=== PATIENT | female | born 1935 | race African-American/Black ===

== ENCOUNTER 2025-05-13 15:06 | Emergency (ER) | payer MEDICARE, SELFPAY ==
[2025-05-13 15:07] VITALS: BP 95/45; PULSE 65; RESP 16; TEMP 36.6; O2SAT 97
--- OUTSIDE RECORDS SUMMARY | 2025-05-13 15:09 | XMS_ITS | Clinical Summary ---
Author Organization [facility] Address [address] [place] [id number] Care Team Providers Care Shirt Folder Name Role Phone Fede Mills Primary Care Provider yLnda Silvestre MD Unavailable [phone] Victor Manuel Real MD Unavailable [phone] Nazario Osman DPM Unavailable [phone] Concha Prakash RN Unavailable [phone] Allergies Active Allergy Reactions Criticality Noted Date Comments Codeine Nausea only,Vomiting Low Reaction: Nausea, Vomiting, Penicillin V Other (See comments) Low 12/17/2023 Penicillins Rash Medium Reaction: Rash, Sulfa (Sulfonamide Antibiotics) Nausea only,Vomiting Low 12/17/2023 Reaction: Nausea, Vomiting, Medications artificial tears,hypromel lose, 0.3 % drops Administer 1-2 drops into affected eye(s) daily as needed Active acetaminophen (TYLENOL) 500 mg tablet Take 1 tablet (500 mg total) by mouth every 4 (four) hours as needed for pain Active aspirin 81 mg enteric coated tablet Take 1 tablet (81 mg total) by mouth daily Active fexofenadine (RACQUEL) 180 mg tablet Take 1 tablet (180 mg total) by mouth daily Active galcanezumab-g nlm (Emgality Syringe) 120 mg/mL syringe 120 mg subcutaneous every 30 days 1 mL 11 05/23/20 24 Active carbidopa-levo dopa (SINEMET) 25-100 mg per tabletIndicati ons:Parkinsoni sm Take 1 tablet by mouth 3 (three) times a day 90 tablet 11 08/26/20 24 025 Active psyllium husk, with sugar, (Metamucil, with sugar,) 3 gram/7 gram powder as directed Mix 1 tablespoon with liquid and take by mouth Active carBAMazepine (TEGretol) 100 mg chewable tablet TAKE 1 TABLET BY MOUTH TWICE A DAY 180 tablet 1 12/23/19 25 Active simvastatin (ZOCOR) 10 mg tablet Take 1 tablet (10 mg total) by mouth daily 90 tablet 3 01/22/20 25 Active amLODIPine (NORVASC) 5 mg tablet Take 1 tablet (5 mg total) by mouth daily 30 tablet 11 04/12/20 25 026 Active levothyroxine (SYNTHROID) 25 mcg tablet TAKE 1 TABLET (25 MCG TOTAL) BY MOUTH DAILY ON EMPTY STOMACH 90 tablet 1 05/02/20 25 Active fluticasone propionate (FLONASE) 50 mcg/actuation nasal spray ADMINISTER 2 SPRAYS INTO EACH NOSTRIL DAILY NEEDED 48 mL 1 05/05/20 25 Active polyethylene glycol (MIRALAX) 17 gram/dose bulk powderIndicati ons:constipati on Take 17 g by mouth daily 510 g 05/09/20 25 025 Active senna-docusate (PERICOLACE) 8.6-50 mgIndications: constipation Take 1 tablet by mouth 2 (two) times a day as needed for constipation 60 tablet 05/09/20 25 025 Active levothyroxine (SYNTHROID) 25 mcg tablet TAKE 1 TABLET (25 MCG TOTAL) BY MOUTH DAILY ON EMPTY STOMACH 90 tablet 3 05/20/20 24 025 Discontinued fluticasone propionate (FLONASE) 50 mcg/actuation nasal spray ADMINISTER 2 SPRAYS INTO EACH NOSTRIL DAILY NEEDED 48 mL 1 11/12/19 25 025 Discontinued Active Problems Problem Noted Date Diagnosed Date Weakness 05/06/2025 Hypertensive urgency 04/10/2025 Bradycardia 04/10/2025 Parkinson's disease with dyskinesia, with fluctu ations 01/21/2025 Pulmonary hypertension 10/07/2024 Chronic diastolic heart failure 10/07/2024 Intractable headache, unspec ified chronicity pattern, unspecified headache type 08/22/2024 Weakness of right lower extremity 04/12/2024 Chronic migraine w/o aura w/ o status migrainosus, not intractable 12/17/2023 Other cervical disc degenera tion, unspecified cervical region 12/17/2023 Type 2 diabetes mellitus wit h diabetic chronic kidney disease 12/17/2023 Type 2 diabetes mellitus with diabetic polyneuro brian 12/17/2023 Orthostatic hypotension 11/25/2023 Age-related physical debility 11/22/2023 Assessment & Plan (12/27/2023 1:32 PM TRANSPORTATION SALES CONSULTANT): -new diagnosis -reported in bilateral lower extremities -cause of recent hospitalization -patient currently doing PT/OT -uses a walker for short distances but a wheelchair for long distances -continue current therapy Neck pain 08/01/2023 Assessment & Plan (08/01/2023 2:23 PM CDT): Physical therapy for right sided neck pain Chronic left-sided headaches 02/27/2023 Assessment & Plan (02/27/2023 7:53 AM CDT): Worsening- Ordered MRI WO Encouraged to follow up with Opth to have updated eye exam Plan referral for neurology pending results Continue with Tylenol for pain- use as directed Valgus deformity of both feet 02/27/2023 Assessment & Plan (02/27/2023 7:53 AM CDT): Ordered referral for Podiatry Anemia of chronic disease 11/13/2022 Acquired hypothyroidism 07/04/2022 Assessment & Plan (12/27/2023 1:35 PM TRANSPORTATION SALES CONSULTANT): -chronic -previously taking 25 mcg of levothyroxine -discontinued during hospitalization from 11/22/2023-11/25/2023 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 If pt helps contorlls Will not chaes if not confsider stress test. Xray t and l.s spine High serum vitamin B12 06/16/2021 Assessment & Plan (06/16/2021 10:44 AM CDT): Prior low and taking and now high stop b12 and rec heck Expect to need but much smaller doses History of falling 12/12/2020 Iron deficiency anemia secon sally to inadequate dietary iron intake 06/03/2020 Assessment & Plan (11/02/2021 10:34 AM TRANSPORTATION SALES CONSULTANT): Recheck to confirm not worseining prior xstool hem neg Assessment & Plan (06/16/2021 10:38 AM CDT): Iron up to iron sat up to 16 and hgb to 11.5 and geteting to nl and cont iron and check Assessment & Plan (01/10/2021 11:25 AM TRANSPORTATION SALES CONSULTANT): blod cnts p a little and I cj stable stay on iron as on for nwo and seclf chweck Assessment & Plan (09/07/2020 1:28 PM TRANSPORTATION SALES CONSULTANT): Iron stil low and takes mvi with iron as only toerated Check cbc and Iron onreturn Assessment & Plan (06/03/2020 3:43 PM CDT): Stable anemia with hgb 10.3 and 165 % urib taje mvi with iron and check ctool for blood. Medicare annual wellness visit, subsequent 05/13 Assessment & Plan (01/21/2025 11:56 AM CDT): Discussed community resources and any need for referrals; will refer to services and programs to improve social engagement if indicated, as above. Reviewed social activities and engagement. Health risk assessment reviewed. Providers and care team suppliers up-to-date. Age-appropriate Medicare preventive services check list reviewed. Discussed physical activity. We reviewed home and community safety including driving. Refer to Medicare questions about suicidality and life satisfaction. Assessment & Plan (01/18/2024 12:16 PM CDT): Discussed community resources and any need for referrals. Health risk assessment reviewed. Providers and care team suppliers up-to-date. Age-appropriate Medicare preventive services check list reviewed. Discussed physical activity. Assessment & Plan (07/04/2022 8:35 AM CDT): Discussed community resources and any need for referrals. Health risk assessment reviewed. Providers and care team suppliers up-to-date. Age-appropriate Medicare preventive services check list reviewed. Discussed physical activities. Assessment & Plan (06/16/2021 10:40 AM CDT): Low fall risk deprioens screen neg cog screen nl up to date on coln and rene given age had rene last yr and suggest .getting every 1-2 yrs. Had covid flu shingles shot seirries and p shots Assessment & Plan (06/03/2020 3:42 PM CDT): Neg depreison screen Cog screen nl low fal risk 84 not candidate for colon . Rene up to odate vbut coiming up.fall fluy ahd had both p shots. chingles shot series had. Assessment & Plan (05/13/2019 11:02 AM CDT): Low fall risk depresoin screen nl. Colon for 83 would not do unless issue. Fall flu shots up to date and has had both p shots. Rene due end of jun. Stage 3 chronic kidney disease 01/06/2019 Assessment & Plan (04/21/2025 12:32 PM CDT): She knows to avoid nephrotoxic drugs Assessment & Plan (01/21/2025 11:56 AM CDT): Discussed avoiding nephrotoxic drugs Assessment & Plan (01/01/2025 10:10 AM TRANSPORTATION SALES CONSULTANT): Chemistry Lab Results Component Value Date SODIUM 143 10/08/2024 POTASSIUM 4.2 10/08/2024 CHLORIDE 110 10/08/2024 CO2 25 10/08/2024 ANIONGAP 8 10/08/2024 BUNSER 24 10/08/2024 CREATININE 0.86 10/08/2024 GLUCOSE 95 10/08/2024 CALCIUM 9.2 10/08/2024 BILITOT <0.2 10/08/2024 PROTEIN 6.4 09/02/2019 ALBUMIN 3.2 (L) 10/08/2024 GFRNAA 65 10/08/2024 ALKPHOS 81 10/08/2024 AST 23 10/08/2024 ALT <5 (L) 10/08/2024 PHOS 3.2 04/15/2024 MAGNESIUM 2.2 07/19/2024 Independent review of above laboratory data at this time indicating stable kidney function. Recommend increasing hydration and avoiding nephrotoxic meds and continue renal dosing of medications if needed. Assessment & Plan (11/02/2021 10:31 AM TRANSPORTATION SALES CONSULTANT): Creat sctable and due for 24 hr uirhe cr clTo try to minimize the worsening and possible improvement in the renal function there are several things to try to do. The patient should work to get off of (if on) drugs Like Prilosec/prevacid/protonix/nexium,etc. This does not include zantac/pepcid or Tagement. It ws shown that there is an increased risk of kidney dysfunction if you use Prilosec like meds.The patient should also stay off of regular use of scripted arthritis pills like Celebrex.mobic,naprosyn,etc. The over the counter pills of this nature are Advil/motrin/ibuprofen and aleve/naproxen. Regular use of these over the counter pills, Particularly at high doses and not scattered use of the meds also can harm the kidneys. Assessment & Plan (05/13/2019 10:59 AM CDT): Screening labs stble and check 24 hr uirne yr'l'yTo try to minimize the worsening and possible improvement in the renal function there are several things to try to do. The patient should work to get off of (if on) drugs Like Prilosec/prevacid/protonix/nexium,etc. This does not include zantac/pepcid or Tagement. It ws shown that there is an increased risk of kidney dysfunction if you use Prilosec like meds.The patient should also stay off of regular use of scripted arthritis pills like Celebrex.mobic,naprosyn,etc. The over the counter pills of this nature are Advil/motrin/ibuprofen and aleve/naproxen. Regular use of these over the counter pills, Particularly at high doses and not scattered use of the meds also can harm the kidneys. Assessment & Plan (01/06/2019 5:28 PM TRANSPORTATION SALES CONSULTANT): Worsening some. CC down to 46 from 51. Pure hypercholesterolemia 08/19/2018 Assessment & Plan (01/21/2025 11:56 AM CDT): Counseled on heart healthy diet, exercise where able Assessment & Plan (06/11/2024 12:39 PM CDT): Counseled on heart healthy diet, exercise where able Assessment & Plan (06/16/2021 10:43 AM CDT): ldl t 60 great and a1c at 6.0 fantastic and nn no meds for sugar and Statin working well cont meds as on . And no adderd diet Assessment & Plan (01/10/2021 11:27 AM TRANSPORTATION SALES CONSULTANT): Your cholesterol in the form of ldl (bad) cholesterol,hdl(good) cholesterol and triglycerides are monitored. The triglycerides respond to reduction/controll of your simple carbs/sugars In such items as sugared soda/sweet tea along with fruit juices(containing natural sugar) even if no added sugar is added. LDL cholesterol is reduced with reducing daily intake of fats and beverly. saturated fats. The monosaturated fats like olive oil are not harmful except in the calories they contained. Whole milk cheese needs to be remembered along with whole milk products And limited.ldl at 56 and god no changs inmeds and check onrturn Assessment & Plan (06/03/2020 3:38 PM CDT): ldl at 49 not rl meds but if rops more would look at dropiong the zocor no added diet Assessment & Plan (09/15/2019 11:25 AM TRANSPORTATION SALES CONSULTANT): ldl at 58 and great no chanes in diet or meds Assessment & Plan (05/13/2019 10:59 AM CDT): ldl at 58 and great no changes in meds or diet Assessment & Plan (08/19/2018 9:14 AM CDT): ldl at 67 and gterat. a1c nl at 5.6. Camila at dropingthe metformin to bid on return if stays this relative good. Your cholesterol in the form of ldl (bad) cholesterol,hdl(good) cholesterol and triglycerides are monitored. The triglycerides respond to reduction/controll of your simple carbs/sugars In such items as sugared soda/sweet tea along with fruit juices(containing natural sugar) even if no added sugar is added. LDL cholesterol is reduced with reducing daily intake of fats and beverly. saturated fats. The monosaturated fats like olive oil are not harmful except in the calories they contained. Whole milk cheese needs to be remembered along with whole milk products And limited.Diabetes management or controll revolves around several core concepts : weight controll,controlling the intake of rapidly absorbed sugars(read simple carbs that get rapidly absorbed such as sweetened tea,sugared soda,fruit juices or portions of fruit over 1/2 cup at a time) as well at the need to increase the sugar burned up through an n increase in your baseline activity.Breads,potatotes(white,yellow,sweet are all the same),most cereals and noodles all breakdown to sugar rapidly. This rapid breakdown or absorption challenges the body into handling this surge of sugar. The more these factors are controlled the more the sugar will be controlled. Type 2 diabetes mellitus wit h stage 3 chronic kidney disease, without long-term current use of insulin 08/19/2018 Assessment & Plan (11/12/2022 3:05 PM TRANSPORTATION SALES CONSULTANT): The patient was counseled on a heart-healthy, diabetic-friendly diet, as well as life-style modification. Education provided on the diagnosis and risks of the disease. We will continue to monitor routine labs. Additionally, She was counseled on routine diabetic eye exams, foot exams, and other preventive care. Assessment & Plan (03/06/2022 8:54 AM CDT): The patient was counseled on a heart-healthy, diabetic-friendly diet, as well as life-style modification. Education provided on the diagnosis and risks of the disease. We will continue to monitor routine labs. Additionally, the patient was counseled on routine diabetic eye exams, foot exams, and other preventive care. Assessment & Plan (11/02/2021 10:31 AM TRANSPORTATION SALES CONSULTANT): a1c at 5.8 and near nl Diabetes management or controll revolves around several core concepts : weight controll,controlling the intake of rapidly absorbed sugars(read simple carbs that get rapidly absorbed such as sweetened tea,sugared soda,fruit juices or portions of fruit over 1/2 cup at a time) as well at the need to increase the sugar burned up through an n increase in your baseline activity.Breads,potatotes(white,yellow,sweet are all the same),most cereals and noodles all breakdown to sugar rapidly. This rapid breakdown or absorption challenges the body into handling this surge of sugar. The more these factors are controlled the more the sugar will be controlled. Assessment & Plan (06/16/2021 10:43 AM CDT): Renal stable and sugar great and no added meds or diet . Recheck 4 months Assessment & Plan (01/10/2021 11:22 AM TRANSPORTATION SALES CONSULTANT): Cr clear up to 50 from 35. No meds and doing bettrer off menformin but not see that as issue. Watch for drugs at Trick and recheck onreturnTo try to minimize the worsening and possible improvement in the renal function there are several things to try to do. The patient should work to get off of (if on) drugs Like Prilosec/prevacid/protonix/nexium,etc. This does not include zantac/pepcid or Tagement. It ws shown that there is an increased risk of kidney dysfunction if you use Prilosec like meds.The patient should also stay off of regular use of scripted arthritis pills like Celebrex.mobic,naprosyn,etc. The over the counter pills of this nature are Advil/motrin/ibuprofen and aleve/naproxen. Regular use of these over the counter pills, Particularly at high doses and not scattered use of the meds also can harm the kidneys. Assessment & Plan (09/07/2020 1:27 PM TRANSPORTATION SALES CONSULTANT): A`1c nl at 5.6 and will stopthe metformin and gfr 35 fown Touch and will see about stopoinght e lisinpril low dase for renal function. Check renal sono as well recheck urine then in 4,monthsTo try to minimize the worsening and possible improvement in the renal function there are several things to try to do. The patient should work to get off of (if on) drugs Like Prilosec/prevacid/protonix/nexium,etc. This does not include zantac/pepcid or Tagement. It ws shown that there is an increased risk of kidney dysfunction if you use Prilosec like meds.The patient should also stay off of regular use of scripted arthritis pills like Celebrex.mobic,naprosyn,etc. The over the counter pills of this nature are Advil/motrin/ibuprofen and aleve/naproxen. Regular use of these over the counter pills, Particularly at high doses and not scattered use of the meds also can harm the kidneys. Diabetes management or controll revolves around several core concepts : weight controll,controlling the intake of rapidly absorbed sugars(read simple carbs that get rapidly absorbed such as sweetened tea,sugared soda,fruit juices or portions of fruit over 1/2 cup at a time) as well at the need to increase the sugar burned up through an n increase in your baseline activity.Breads,potatotes(white,yellow,sweet are all the same),most cereals and noodles all breakdown to sugar rapidly. This rapid breakdown or absorption challenges the body into handling this surge of sugar. The more these factors are controlled the more the sugar will be controlled. Assessment & Plan (06/03/2020 3:36 PM CDT): a1c down to 5l4 and cut the metformin to 1 a day. Creat stable and nl but gfr low check renal24 hr urinre on reuthnr and see where at. To try to minimize the worsening and possible improvement in the renal function there are several things to try to do. The patient should work to get off of (if on) drugs Like Prilosec/prevacid/protonix/nexium,etc. This does not include zantac/pepcid or Tagement. It ws shown that there is an increased risk of kidney dysfunction if you use Prilosec like meds.The patient should also stay off of regular use of scripted arthritis pills like Celebrex.mobic,naprosyn,etc. The over the counter pills of this nature are Advil/motrin/ibuprofen and aleve/naproxen. Regular use of these over the counter pills, Particularly at high doses and not scattered use of the meds also can harm the kidneys. Diabetes management or controll revolves around several core concepts : weight controll,controlling the intake of rapidly absorbed sugars(read simple carbs that get rapidly absorbed such as sweetened tea,sugared soda,fruit juices or portions of fruit over 1/2 cup at a time) as well at the need to increase the sugar burned up through an n increase in your baseline activity.Breads,potatotes(white,yellow,sweet are all the same),most cereals and noodles all breakdown to sugar rapidly. This rapid breakdown or absorption challenges the body into handling this surge of sugar. The more these factors are controlled the more the sugar will be controlled. Assessment & Plan (01/13/2020 1:17 PM CDT): The patient was counseled on a heart-healthy, diabetic-friendly diet, as well as life-style modification. Education provided on the diagnosis and risks of the disease. We will continue to monitor routine labs. Additionally, She was counseled on routine diabetic eye exams, foot exams, and other preventive care. Assessment & Plan (09/15/2019 11:24 AM TRANSPORTATION SALES CONSULTANT): screeens for renal funcniton stabl eto better and check 24 hr uiren yr'ly limited sulfa nsaaids. Iv dye and ppi's espTo try to minimize the worsening and possible improvement in the renal function there are several things to try to do. The patient should work to get off of (if on) drugs Like Prilosec/prevacid/protonix/nexium,etc. This does not include zantac/pepcid or Tagement. It ws shown that there is an increased risk of kidney dysfunction if you use Prilosec like meds.The patient should also stay off of regular use of scripted arthritis pills like Celebrex.mobic,naprosyn,etc. The over the counter pills of this nature are Advil/motrin/ibuprofen and aleve/naproxen. Regular use of these over the counter pills, Particularly at high doses and not scattered use of the meds also can harm the kidneys. Assessment & Plan (05/13/2019 11:01 AM CDT): Stable renal ascreen and check 24 hr urine. Next due about dec Assessment & Plan (01/06/2019 5:26 PM TRANSPORTATION SALES CONSULTANT): The patient was counseled on a heart-healthy, diabetic-friendly diet, as well as life-style modification. Education provided on the diagnosis and risks of the disease. We will continue to monitor routine labs. Additionally, She was counseled on routine diabetic eye exams, foot exams, and other preventive care. Assessment & Plan (08/19/2018 9:20 AM CDT): priro at 53 gfr. Not checked in a yr. alexis ask to repeat on retuirn.dx drooped off list. To try to minimize the worsening and possible improvement in the renal function there are several things to try to do. The patient should work to get off of (if on) drugs Like Prilosec/prevacid/protonix/nexium,etc. This does not include zantac/pepcid or Tagement. It ws shown that there is an increased risk of kidney dysfunction if you use Prilosec like meds.The patient should also stay off of regular use of scripted arthritis pills like Celebrex.mobic,naprosyn,etc. The over the counter pills of this nature are Advil/motrin/ibuprofen and aleve/naproxen. Regular use of these over the counter pills, Particularly at high doses and not scattered use of the meds also can harm the kidneys. Hypertension, essential 09/22/2016 Overview (02/09/2017): HYPERTENSION NOS Assessment & Plan (04/21/2025 12:32 PM CDT): Recommend DASH diet, heart-healthy lifestyle, exercise. Discussed the risks of hypertension. Assessment & Plan (01/21/2025 11:56 AM CDT): Recommend DASH diet, heart-healthy lifestyle, exercise. Discussed the risks of hypertension. Assessment & Plan (01/01/2025 10:50 AM TRANSPORTATION SALES CONSULTANT): BP Readings from Last 3 Encounters: 01/01/25 104/64 10/17/24 130/58 10/09/24 129/55 Chronic condition. Stable and at goal at time of office visit of systolic pressure less than 140 Continue amlodipine 2.5 mg daily, Coreg 6.25 mg twice a day as Rx. Recommend heart-healthy diet. Assessment & Plan (06/11/2024 12:38 PM CDT): Recommend DASH diet, heart-healthy lifestyle, exercise. Discussed the risks of hypertension. Assessment & Plan (01/18/2024 12:16 PM CDT): Recommend DASH diet, heart healthy lifestyle, exercise. Discussed the risks of hypertension. Assessment & Plan (12/27/2023 1:31 PM TRANSPORTATION SALES CONSULTANT): -chronic, suboptimally controlled -currently takes Coreg daily -from recent hospitalization amlodipine and spironolactone discontinued. Midodrine added -per patient's blood pressures have been running 140s to 150s over 70s to 80s, which he states is normal for her -continue current therapy Assessment & Plan (03/09/2023 8:13 AM CDT): Recommend DASH diet, heart healthy lifestyle, exercise. Discussed the risks of hypertension. Assessment & Plan (02/27/2023 7:59 AM CDT): Recommend DASH diet, heart-healthy lifestyle, exercise. Discussed the risks of hypertension. BP stable Continue Carvedilol 6.25 mg bid with food, amlodipine 2.5 mg daily, spironolactone 25 mg daily Assessment & Plan (07/04/2022 8:35 AM CDT): Recommend DASH diet, heart healthy lifestyle, exercise. Discussed the risks of hypertension. Assessment & Plan (06/16/2021 10:38 AM CDT): The bp touch high and will recheck at [facility] and [facility] in. And bring in monitor . a1c at 6.0 and goo d and no changx Hypertension, Medical treament revolves around weight control, salt management, and meds when necessary. long as weight loss is necessary and you are able to drop weight we can cont to monitor the blood pressure and not add meds. Once the weight is not changing then it becomes nesessary to add meds to be able to reach the goal bp.Diabetes management or controll revolves around several core concepts : weight controll,controlling the intake of rapidly absorbed sugars(read simple carbs that get rapidly absorbed such as sweetened tea,sugared soda,fruit juices or portions of fruit over 1/2 cup at a time) as well at the need to increase the sugar burned up through an n increase in your baseline activity.Breads,potatotes(white,yellow,sweet are all the same),most cereals and noodles all breakdown to sugar rapidly. This rapid breakdown or absorption challenges the body into handling this surge of sugar. The more these factors are controlled the more the sugar will be controlled. Assessment & Plan (01/10/2021 11:21 AM TRANSPORTATION SALES CONSULTANT): bp good and a1c up to 6.1 and off meds given wt up this is great. Needs to controll wt Hypertension, Medical treament revolves around weight control, salt management, and meds when necessary. long as weight loss is necessary and you are able to drop weight we can cont to monitor the blood pressure and not add meds. Once the weight is not changing then it becomes nesessary to add meds to be able to reach the goal bp.Diabetes management or controll revolves around several core concepts : weight controll,controlling the intake of rapidly absorbed sugars(read simple carbs that get rapidly absorbed such as sweetened tea,sugared soda,fruit juices or portions of fruit over 1/2 cup at a time) as well at the need to increase the sugar burned up through an n increase in your baseline activity.Breads,potatotes(white,yellow,sweet are all the same),most cereals and noodles all breakdown to sugar rapidly. This rapid breakdown or absorption challenges the body into handling this surge of sugar. The more these factors are controlled the more the sugar will be controlled. Assessment & Plan (06/03/2020 3:39 PM CDT): bp drop meds to 2.5 from 5 on lisinopril No added diet Assessment & Plan (01/13/2020 1:15 PM CDT): Recommend DASH diet, heart-healthy lifestyle, exercise. Discussed the risks of hypertension. Assessment & Plan (09/15/2019 11:23 AM TRANSPORTATION SALES CONSULTANT): The bp good and th3 a1c neqr nl at 5.7 no chages in dieet or meds Assessment & Plan (05/13/2019 11:05 AM CDT): The bp good and lisinopril and what dose not clear will go h ome and check and let us know and plan would be to kep same. . The a1c nl at 5.6 no ochoanges with these cutting ht aldactone back pierre /12 and alexis see Some bp come upHypertension, Medical treament revolves around weight control, salt management, and meds when necessary. long as weight loss is necessary and you are able to drop weight we can cont to monitor the blood pressure and not add meds. Once the weight is not changing then it becomes nesessary to add meds to be able to reach the goal bp. Assessment & Plan (01/06/2019 5:27 PM TRANSPORTATION SALES CONSULTANT): Recommend DASH diet, heart-healthy lifestyle, exercise. Discussed the risks of hypertension. Assessment & Plan (08/19/2018 9:18 AM CDT): bp low nl and will dropthe lisinopril to 2.5. Hypertension, Medical treament revolves around weight control, salt management, and meds when necessary. long as weight loss is necessary and you are able to drop weight we can cont to monitor the blood pressure and not add meds. Once the weight is not changing then it becomes nesessary to add meds to be able to reach the goal bp. Assessment & Plan (02/15/2018 4:39 PM CDT): Recommend DASH diet, heart-healthy lifestyle, exercise. Discussed the risks of hypertension. Assessment & Plan (10/18/2017 10:30 AM TRANSPORTATION SALES CONSULTANT): bp good and no chagesHypertension, Medical treament revolves around weight control, salt management, and meds when necessary. long as weight loss is necessary and you are able to drop weight we can cont to monitor the blood pressure and not add meds. Once the weight is not changing then it becomes nesessary to add meds to be able to reach the goal bp. Assessment & Plan (06/14/2017 10:34 AM CDT): bp low enougha nd with protein in urine. thelsinopril and ladactone helps this.will back off onteh coreg and see if bp not up someHypertension, Medical treament revolves around weight control, salt management, and meds when necessary. long as weight loss is necessary and you are able to drop weight we can cont to monitor the blood pressure and not add meds. Once the weight is not changing then it becomes nesessary to add meds to be able to reach the goal bp. Type 2 diabetes mellitus wit h microalbuminuria, without long-term current use of insulin 03/21/2014 Overview (02/09/2017): DMII WO CMP NT ST UNCNTR Assessment & Plan (04/21/2025 12:32 PM CDT): The patient was counseled on a heart-healthy, diabetic-friendly diet, as well as life-style modification. Education provided on the diagnosis and risks of the disease. We will continue to monitor routine labs. Additionally, She was counseled on routine diabetic eye exams, foot exams, and other preventive care. Assessment & Plan (01/21/2025 11:56 AM CDT): The patient was counseled on a heart-healthy, diabetic-friendly diet, as well as life-style modification. Education provided on the diagnosis and risks of the disease. We will continue to monitor routine labs. Additionally, She was counseled on routine diabetic eye exams, foot exams, and other preventive care. Assessment & Plan (01/01/2025 10:03 AM TRANSPORTATION SALES CONSULTANT): Chronic, stable, and at goal of A1c less than 7.0 Hgb A1C Date Value Ref Range Status 06/11/2024 6.2 (H) 4.0 - 5.6 % Final 08/07/2023 6.0 (H) 4.0 - 5.6 % Final 03/06/2023 6.3 (H) 4.0 - 5.6 % Final 09/02/2019 5.7 (H) <5.7 % of total Hgb Final Comment: For someone without known diabetes, a hemoglobin A1c value between 5.7% and 6.4% is consistent with prediabetes and should be confirmed with a follow-up test. For someone with known diabetes, a value <7% indicates that their diabetes is well controlled. A1c targets should be individualized based on duration of diabetes, age, comorbid conditions, and other considerations. This assay result is consistent with an increased risk of diabetes. Currently, no consensus exists regarding use of hemoglobin A1c for diagnosis of diabetes for children. 04/28/2019 5.6 <5.7 % of total Hgb Final Comment: For the purpose of screening for the presence of diabetes: <5.7% Consistent with the absence of diabetes 5.7-6.4% Consistent with increased risk for diabetes (prediabetes) > or =6.5% Consistent with diabetes This assay result is consistent with a decreased risk of diabetes. Currently, no consensus exists regarding use of hemoglobin A1c for diagnosis of diabetes in children. According to [place] Diabetes Association (ADA) guidelines, hemoglobin A1c <7.0% represents optimal control in non- diabetic patients. Different metrics may apply to specific patient populations. Standards of Medical Care in Diabetes(ADA). 12/24/2018 5.6 <5.7 % of total Hgb Final Comment: For the purpose of screening for the presence of diabetes: <5.7% Consistent with the absence of diabetes 5.7-6.4% Consistent with increased risk for diabetes (prediabetes) > or =6.5% Consistent with diabetes This assay result is consistent with a decreased risk of diabetes. Currently, no consensus exists regarding use of hemoglobin A1c for diagnosis of diabetes in children. According to [place] [employer] (ADA) guidelines, hemoglobin A1c <7.0% represents optimal control in non- diabetic patients. Different metrics may apply to specific patient populations. Standards of Medical Care in Diabetes(ADA). Labs reviewed indicating glycemic control Recommend continue nutrition/diet for management, no prescription medications active this time. Assessment & Plan (06/11/2024 12:38 PM CDT): The patient was counseled on a heart-healthy, diabetic-friendly diet, as well as life-style modification. Education provided on the diagnosis and risks of the disease. We will continue to monitor routine labs. Additionally, She was counseled on routine diabetic eye exams, foot exams, and other preventive care. Assessment & Plan (01/18/2024 12:16 PM CDT): The patient was counseled on a heart-healthy, diabetic-friendly diet, as well as life-style modification. Education provided on the diagnosis and risks of the disease. We will continue to monitor routine labs. Additionally, She was counseled on routine diabetic eye exams, foot exams, and other preventive care. Assessment & Plan (06/16/2021 10:42 AM CDT): Urine protein and n meds and cont on and check pyr'ly Assessment & Plan (01/10/2021 11:24 AM TRANSPORTATION SALES CONSULTANT): Urine protetin cme up to 192 and up. On meds to help and cotn as on for now and check Assessment & Plan (06/03/2020 3:42 PM CDT): Dropping back on honey to 2.5 Given renal and bp and k some high will check in futureif ka goes up any alexis need to reduce to stop the alldactone Assessment & Plan (09/15/2019 11:24 AM TRANSPORTATION SALES CONSULTANT): lurine protein down to 4.7 and Very nl on meds as on.l no changes Assessment & Plan (05/13/2019 11:00 AM CDT): Urine protien up touch to 44 and 30 and less nl. With back off aldactone alexis liekly come up some and check it onreturn Assessment & Plan (08/19/2018 9:15 AM CDT): checkurine on return. Assessment & Plan (02/18/2018 9:22 AM CDT): The patient was counseled on a heart-healthy, diabetic-friendly diet, as well as life-style modification. Education provided on the diagnosis and risks of the disease. We will continue to monitor routine labs. Additionally, She was counseled on routine diabetic eye exams, foot exams, and other preventive care. Assessment & Plan (10/18/2017 10:31 AM TRANSPORTATION SALES CONSULTANT): a1c at 6.2 and 6.5 diabetes. So excellent. Will check urine on return for the protein. Potassium at 5.2 limits any increase inhte aldactone or lisinopril if still up some. Diabetes management or controll revolves around several core concepts : weight controll,controlling the intake of rapidly absorbed sugars(read simple carbs that get rapidly absorbed such as sweetened tea,sugared soda,fruit juices or portions of fruit over 1/2 cup at a time) as well at the need to increase the sugar burned up through an n increase in your baseline activity.Breads,potatotes(white,yellow,sweet are all the same),most cereals and noodles all breakdown to sugar rapidly. This rapid breakdown or absorption challenges the body into handling this surge of sugar. The more these factors are controlled the more the sugar will be controlled. Assessment & Plan (06/14/2017 10:34 AM CDT): a1c at 5.5 and nl. The urine p rotein 35 and nl 30 and less. The aldactone and lisinopril helps this. And will try to cont themDiabetes management or controll revolves around several core concepts : weight controll,controlling the intake of rapidly absorbed sugars(read simple carbs that get rapidly absorbed such as sweetened tea,sugared soda,fruit juices or portions of fruit over 1/2 cup at a time) as well at the need to increase the sugar burned up through an n increase in your baseline activity.Breads,potatotes(white,yellow,sweet are all the same),most cereals and noodles all breakdown to sugar rapidly. This rapid breakdown or absorption challenges the body into handling this surge of sugar. The more these factors are controlled the more the sugar will be controlled.. Resolved Problems Problem Noted Date Diagnosed Date Resolved Date Acute chest pain 04/10/2025 04/21/2025 Near syncope 10/07/2024 04/21/2025 Acute cystitis without hematuria 10/07/2024 01/21/2025 Assessment & Plan (01/01/2025 10:01 AM TRANSPORTATION SALES CONSULTANT): Chronic problem, exacerbated at this time. Point of care urinalysis today: Repeat urine culture Initiate antibiotics at this time based on most recent culture data: Rx ciprofloxacin 500 mg twice a day for 5 days Body mass index (BMI) of 23. 0 to 23.9 in adult 12/27/2023 06/11/2024 Assessment & Plan (12/27/2023 1:39 PM TRANSPORTATION SALES CONSULTANT): Wt Readings from Last 3 Encounters: 11/22/23 58.8 kg (129 lb 10.1 oz) 10/08/23 57.6 kg (127 lb) 08/09/23 58.1 kg (128 lb) There is no height or weight on file to calculate BMI. -Discussed importance of continuing PT -Discussed importance of well-balanced diet. Hypertensive chronic kidney disease w stg 1-4/unsp chr kdny 12/17/2023 01/18/2024 Unspecified dementia, unspec ified severity, without behavioral disturbance, psychotic disturbance, mood disturbance, and anxiety 12/17/2023 06/11/2024 Fall 11/23/2023 01/18/2024 Fall at home 11/22/2023 01/18/2024 Chronic migraine without aura 10/08/2023 05/23/2024 Referred otalgia of left ear 08/01/2023 08/09/2023 Assessment & Plan (08/01/2023 2:16 PM CDT): CT Head Personal interpretation: sinuses, middle ear and mastoids were clear, no fluid, masses, polyps or infection Ingrowing toenail of left foot 02/27/2023 01/18/2024 Assessment & Plan (02/27/2023 7:56 AM CDT): Warm foot soaks Avoid cutting nails too short- cut straight across and not at angle Follow up with podiatry Encounter for follow-up exam ination after completed treatment for conditions other than malignant neoplasm 02/27/2023 08/09/2023 Assessment & Plan (02/27/2023 7:57 AM CDT): I personally reviewed ER visit documentation, labs,imaging, and medications Medication reconciliation completed Follow up with pcp as scheduled-sooner if needed Chronic kidney disease, stage 3a 06/07/2022 01/18/2024 Pure hypercholesterolemia, unspecified 03/07/2022 06/11/2024 Hypothyroidism, unspecified 02/10/2022 01/18/2024 Constipation, unspecified 01/10/2022 Allergic rhinitis, unspecified 12/12/2021 01/18/2024 Primary hypertension 11/02/2021 022 Assessment & Plan (03/06/2022 8:57 AM CDT): Recommend DASH diet, heart-healthy lifestyle, exercise. Discussed the risks of hypertension. Assessment & Plan (11/02/2021 10:32 AM TRANSPORTATION SALES CONSULTANT): Bp; stable anld keep meds sameHypertension, Medical treament revolves around weight control, salt management, and meds when necessary. long as weight loss is necessary and you are able to drop weight we can cont to monitor the blood pressure and not add meds. Once the weight is not changing then it becomes nesessary to add meds to be able to reach the goal bp. BMI 27.0-27.9,adult 01/10/2021 08/09/20 23 Assessment & Plan (02/27/2023 8:05 AM CDT): Weight stable Continue healthy diabetic diet Assessment & Plan (01/10/2021 11:26 AM TRANSPORTATION SALES CONSULTANT): Work to stoppoing wt gain Benign hypertensive kidney d isease with chronic kidney disease stage I through stage IV, or unspecified(403.10) 06/03/2020 03/06/2022 Assessment & Plan (11/02/2021 10:33 AM TRANSPORTATION SALES CONSULTANT): Renal screen stable nad bp good and Cont meds as on Assessment & Plan (06/16/2021 10:33 AM CDT): The bp a little higher to day and Good at home and will check and record 1-2 tiems a month and bring bp and monitor in on return creat xtable and repeat 24 hr urien into next yr To try to minimize the worsening and possible improvement in the renal function there are several things to try to do. The patient should work to get off of (if on) drugs Like Prilosec/prevacid/protonix/nexium,etc. This does not include zantac/pepcid or Tagement. It ws shown that there is an increased risk of kidney dysfunction if you use Prilosec like meds.The patient should also stay off of regular use of scripted arthritis pills like Celebrex.mobic,naprosyn,etc. The over the counter pills of this nature are Advil/motrin/ibuprofen and aleve/naproxen. Regular use of these over the counter pills, Particularly at high doses and not scattered use of the meds also can harm the kidneys. Hypertension, Medical treament revolves around weight control, salt management, and meds when necessary. long as weight loss is necessary and you are able to drop weight we can cont to monitor the blood pressure and not add meds. Once the weight is not changing then it becomes nesessary to add meds to be able to reach the goal bp. Assessment & Plan (01/10/2021 11:23 AM TRANSPORTATION SALES CONSULTANT): bp good and renal better no chages in meds Assessment & Plan (09/07/2020 1:27 PM TRANSPORTATION SALES CONSULTANT): bp good and will gfr lower try and see if stopoingthe 2.45 l isinipril helps. Hypertension, Medical treament revolves around weight control, salt management, and meds when necessary. long as weight loss is necessary and you are able to drop weight we can cont to monitor the blood pressure and not add meds. Once the weight is not changing then it becomes nesessary to add meds to be able to reach the goal bp. Assessment & Plan (06/03/2020 3:38 PM CDT): bp good and drop back on honey to 2.5 and check renal with 24 hr urine on return Colon cancer screening 09/15/201907/04 Assessment & Plan (09/15/2019 11:28 AM TRANSPORTATION SALES CONSULTANT): Given age and last nl without need to repeat At age 83 will not repeat Pre-op examination 06/25/2019 0 Assessment & Plan (06/25/2019 1:49 PM CDT): Cat long standing but readhed point of struggles to se setup for surg on 07/03, cleared for low risk surg with well sontrolled bp and niddm . Stable crf. Stops no meds in prep for surg. If gets ill in Between now and surg alexis need to cancel out. BMI 24.0-24.9, adult 05/13/2019 021 Assessment & Plan (09/07/2020 1:28 PM TRANSPORTATION SALES CONSULTANT): Work to keepst able Assessment & Plan (06/03/2020 3:39 PM CDT): Work to come in for landing and not lose Hyperkalemia 05/13/2019 09/15/2019 Assessment & Plan (05/13/2019 11:00 AM CDT): Potassium 5.6 and alexis cut the aldactone to 1/2 pill send in and this shold allow k to drop some At low risk for fall 05/13/2019 023 Assessment & Plan (06/03/2020 3:41 PM CDT): Low fall risk Assessment & Plan (05/13/2019 11:01 AM CDT): Cont total gym to help Laceration of right ring fin jeremías without foreign body without damage to nail 11/29/201708/05 Assessment & Plan (12/04/2017 4:55 PM TRANSPORTATION SALES CONSULTANT): If bleeds then apply direct p[ressure and will stop. bandaid after dial soap nguyen twice a day. Antibiotic oinment on and bakndaid to prtect tentus 7 yrs ago and up to date. No repeat needed for this low risk wound. Hyperlipidemia 09/22/2016 08/19/2018 Overview (02/09/2017): HYPERLIPIDEMIA NEC/NOS Assessment & Plan (10/18/2017 10:31 AM TRANSPORTATION SALES CONSULTANT): ldl at 59 and great and no changesYour cholesterol in the form of ldl (bad) cholesterol,hdl(good) cholesterol and triglycerides are monitored. The triglycerides respond to reduction/controll of your simple carbs/sugars In such items as sugared soda/sweet tea along with fruit juices(containing natural sugar) even if no added sugar is added. LDL cholesterol is reduced with reducing daily intake of fats and beverly. saturated fats. The monosaturated fats like olive oil are not harmful except in the calories they contained. Whole milk cheese needs to be remembered along with whole milk products And limited. Assessment & Plan (06/14/2017 10:35 AM CDT): .ldl at 47 and great and fo now no changesYour cholesterol in the form of ldl (bad) cholesterol,hdl(good) cholesterol and triglycerides are monitored. The triglycerides respond to reduction/controll of your simple carbs/sugars In such items as sugared soda/sweet tea along with fruit juices(containing natural sugar) even if no added sugar is added. LDL cholesterol is reduced with reducing daily intake of fats and beverly. saturated fats. The monosaturated fats like olive oil are not harmful except in the calories they contained. Whole milk cheese needs to be remembered along with whole milk products And limited. Encounters Date Type Department Care Team Description 05/12/2025 Telephone [facility] at [address] [place] [address] Omar Briceño NP 05/09/2025 2:36 PM CDT - 05/09/2025 11:59 PM CDT Hospital Encounter [facility] Discharge Disposition: Discharge to home or self care 05/06/2025 12:02 PM CDT - 05/09/2025 2:59 PM CDT Hospital Encounter [facility] Acute Medicine [address] [place] [address] Angelica Eagle MD Kheirkhahan, Nazanin, MD Weakness (Primary Dx) Discharge Disposition: Discharge to SNF 05/06/2025 Telephone [facility] Primary Care at [address] [place] [id number] Fede Mills PA Concerns for sudden weakness this morning 04/21/2025 3:00 PM CDT Office Visit [facility] Primary Care at [address] [place] [address] Fede Mills PA Hospital discharge follow-up (Primary Dx); Type 2 diabetes mellitus with microalbuminuria, without long-term current use of insulin (HCC); Hypertension, essential; Stage 3a chronic kidney disease (HCC); Acute chest pain; Hypertensive urgency; Intractable headache, unspecified chronicity pattern, unspecified headache type; Hyperkalemia; Acquired hypothyroidism; Wheelchair dependent; Parkinson's disease with dyskinesia, with fluctuations (HCC) 04/20/2025 Telephone [facility] Primary Care at [address] [phone] Fede Mills PA Medical Question/Miscellaneo us 04/14/2025 10:25 AM CDT Lab [address] [phone] Hyperkalemia 04/14/2025 Telephone [facility] Medical [facility] Primary Care at [address] [phone] Fede Mills PA Additional Services Or Orders 04/12/[address] [place] [phone] Lupe Oliveira, LAMINE Home Health 04/10/2025 3:25 AM CDT - 04/11/2025 2:10 PM CDT Hospital Encounter [facility] IMU [address] [place] [id number] Cuco Luke MD Holland, Kristy Lynn, MD Kheirkhahan, Nazanin, MD Acute chest pain (Primary Dx); Hypertensive urgency; Bradycardia; Hyperkalemia; Parkinson's disease with dyskinesia, with fluctuations (HCC) Discharge Disposition: Discharge to home or self care from Last 3 Months Immunizations Immunization Administration Dates Next Due Influenza, Quad, Adjuvantate d, Intramuscular 07/14/2020 Influenza, Quadrivalent, Hig h Dose, Preservative Free, Intrr 08/09/2023,07/11/2022,07/10/2022,08/03 Influenza, Split 08/15/2010 Influenza, Trivalent, High D ose, Split, Preservative Free, Intramuscular 10/09/2024,09/09/2019,08/19/2018,10/18,08/15/2016,08/09/2015,07/21/2014 Influenza, Trivalent, IM (MDV) 08/04/2013,2010,08/11/2008 Influenza, Unspecified 07/04/2022(Deferr ed: Patient Refused),01/14/2020(Deferred: Patient Refused),12/02/2019,08/07/2017 PPD TEST 09/08/2024,,09/01/2024,08/29,04/28/2024,04/25/2024 Pfizer SARS-CoV-2 Monovalent Vaccination (12+ Yrs) PURPLE 02/03/2022,01/24/2021,01/03/2021 Pneumococcal Conjugate PCV 13 02/28/2021, 018 Pneumococcal Polysaccharide PPV23 10/20/2014 Tdap 02/28/2021,12/01/2010 ZOSTER LIVE 06/17/2008 ZOSTER Recombinant 12/02/2019,09/29/2019 Medical History Medical History Date Comments Diabetes mellitus (HCC) Diabetes Hx Other Medical chol Hypertension Hypertension Parkinson's disease (HCC) Family History Medical History Relation Name Comments Hypertension Father Hypertension; Other Father fell hit head; Cause of : fell hit head Stomach cancer Mother Cancer -stoma ch; Cause of : Cancer -stomach Breast cancer Niece arnaldo Lung cancer Sister 2 Cancer -lung; C ause of : Cancer -lung Relation Name Status Comments Father Mother Niece arnaldo Alive Sister 1 Sister 2 Social History Tobacco Use Types Packs/Day Years Used Date Smoking Tobacco: Never Smokeless Tobacco: Never Tobacco Cessation:Counseling Given: Not Answered Alcohol Use Standard Drinks/Week Comments No 0 (1 standard drink = 0.6 oz pur e alcohol) [facility] Utilities Answer Date Recorded In the past 12 months has e [employer], gas, oil, or water [employer] threatened to shut off services in your home? No 05/07/2025 Social Connection and Isolat ion Panel [NHANES] Answer Date Recorded In a typical week, how many times do you talk on the phone with family, friends, or neighbors? More than three times a week 05/07/2025 How often do you get togethe r with friends or relatives? More than three times a week 05/07/2025 How often do you attend chur ch or congregation services? Never 05/07/2025 Do you belong to any clubs o r organizations such as mandaen groups, unions, fraternal or athletic groups, or school groups? No 05/07/2025 How often do you attend meet ings of the clubs or organizations you belong to? Never 05/07/2025 Are you , , di vorced, , never , or living with a partner? 05/07/2025 AUDIT-C Answer Date Recorded Q1: How often do you have a drink containing alcohol? Never 04/21/2025 Q2: How many drinks containi ng alcohol do you have on a typical day when you are drinking? Patient does not drink Q3: How often do you have si x or more drinks on one occasion? Never 04/21/2025 Overall Financial Resource Strain (CARDIA) Answe r Date Recorded How hard is it for you to pa y for the very basics like food, housing, medical care, and heating? Not hard at all 05/07/2025 PHQ-2 Answer Date Recorded PHQ-2 Total Score (If total score is 3 or more points, staff should administer the PHQ-9) 0 04/21/2025 Hunger Vital Sign Answer Date Recorded Within the past 12 months, y ou worried that your food would run out before you got the money to buy more. Never true 05/07/20 25 Within the past 12 months, t he food you bought just didn't last and you didn't have money to get more. Never true 05/07/2025 PRAPARE - Transportation Answer Date Re corded In the past 12 months, has l ack of transportation kept you from medical appointments or from getting medications? No 01/2025 In the past 12 months, has l ack of transportation kept you from meetings, work, or from getting things needed for daily living? No 05/07/2025 Housing Stability Vital Sign Answer Ethan e Recorded In the last 12 months, was t here a time when you were not able to pay the mortgage or rent on time? No 11/23/2023 In the last 12 months, how many places have you lived? 1 11/23/2023 In the last 12 months, was t here a time when you did not have a steady place to sleep or slept in a group home (including now)? No 11/23/2023 Housing Stability Vital Sign Answer Ethan e Recorded In the last 12 months, was t here a time when you were not able to pay the mortgage or rent on time? No 05/07/2025 In the past 12 months, how m any times have you moved where you were living? 0 05/07/2025 At any time in the past 12 m [facility], were you homeless or living in a group home (including now)? No 05/07/2025 Personal Safety Answer Date Recorded Have you ever been in or are you currently in a harmful physical or emotional relationship or is someone making you feel afraid or unsafe? Denies 05/06/2025 Education Answer Date Recorded What is the highest level of school you have completed or the highest degree you have received? Associate degree: occupational, technical, or vocational program 11/23/2023 Comments No Sex and Gender Information Value Date Recorded Sex Assigned at Not on file Legal Sex Female 11:52 PM [employer] Gender Identity Not on file Sexual Orientation Not on file Obstetrics History Para Term AB IAB SAB Ectopic Multiple Livin g Live Births 4 3 3 Date Outcome GA Total Labor Labor/2nd/3rd Weight Sex Type Anes PTL Tresa A1 A5 Name Clin Term Term Term Last Filed Vital Signs Vital Sign Reading Time Taken Comments Blood Pressure 121/57 05/09/2025 7:54 AM CDT Pulse 67 05/09/2025 12:00 PM CDT Temperature 36.4 C (97.5 F) 05/09/2025 7:54 AM CDT Respiratory Rate 12 05/09/2025 7:54 AM CDT Oxygen Saturation 98% 05/09/2025 7:54 AM CDT Inhaled Oxygen Concentration - - Weight 73.2 kg (161 lb 6 oz) 05/06/2025 5:11 PM CDT Height 154.9 cm (5' 1) 05/06/2025 5:11 PM CDT Body Mass Index 30.49 05/06/2025 5:11 PM CDT Plan of Treatment Health Maintenance Due Date Last Done Comments Osteoporosis Screening-Bone Density Scan 03/09/2007 03/09/2005 Covid-19 Vaccine (7 - 2024-2 5 season) 2024 07/24/2022, 02/03/2022, 02/03/2022, Additional history exists Albumin Creatinine Ratio, Urine 06/11/2025 06/11/2024, 11/03/2022, 12/30/2020, Additional history exists Dilated Eye Exam 06/25/2025 06/25/2023, , 06/04/2020, Additional history exists Influenza Vaccine (#1) 2025 , 08/09/2023, 07/11/2022, Additional history exists Hemoglobin A1C 07/24/2025 01/21/2025, 08/0 05/2024, 08/07/2023, Additional history exists Foot Exam 01/21/2026 01/21/2025, 01/03, 11/02/2021, Additional history exists Lipid Panel 01/21/2026 01/21/2025, 08/0 05/2024, 08/07/2023, Additional history exists Well Visit 65+ 01/21/2026 01/21/2025, 01/03, 07/04/2022, Additional history exists Depression Screening 04/21/2026 04/21/2025, 01/21/2025, 10/17/2024, Additional history exists Fall Risk Assessment 05/09/2026 05/09/2025, 04/21/2025, 01/21/2025, Additional history exists eGFR 05/09/2026 05/09/2025, 07/0 02/2025, 05/07/2025, Additional history exists DTaP/Tdap/Td Vaccine (3 - Td or Tdap) 02/28/2031 02/28/2021, 12/01/2010 Colon Cancer Screening-CT Colonography Discontinued 06/25/2007, 06/25/2007 Colon Cancer Screening-Colonoscopy Discontinued 06/25/2007, 06/25/2007 Colon Cancer Screening-DNA Stool Discontinued 06/25/20 07, 06/25/2007 Colon Cancer Screening-Sigmoidoscopy Discontinued 06/25/2007, 06/25/2007 Zoster Vaccine Completed 12/02/2019, 09/06, 06/17/2008 Breast Cancer Screening-Mammogram Discontinued 07/27/2020, 06/30/2019, 06/25/2018, Additional history exists Colon Cancer Screening-FIT Discontinued 09/02, 06/25/2007, 06/25/2007 Pneumococcal vaccine 65+ Completed 021, 08/19/2018, 10/20/2014 Hepatitis B Screening Completed 06/11/2024 Procedures Procedure Name Priority Date/Time Associated Diagnosis Comments POTASSIUM LEVEL STAT 05/09/2025 11:41 AM CDT EGFR Routine 05/09/2025 3:53 AM CDT DIFFERENTIAL AUTO Routine 05/09/2025 3:5 3 AM CDT TROPONIN T HIGH-SENSITIVITY 6-HOUR Timed 05/09/2025 3:53 AM CDT TROPONIN T HIGH-SENSITIVITY 4-HR Timed 05/09/2025 3:53 AM CDT COMPREHENSIVE METABOLIC PANEL Routine 05/09/2025 3:53 AM CDT CBC WITH AUTO DIFFERENTIAL Routine 05/09/2025 3:53 AM CDT TROPONIN T HIGH-SENSITIVITY 2-HOUR Timed 05/08/2025 10:28 PM CDT ECG 12-LEAD Routine 05/08/2025 8:57 PM CDT TROPONIN T HIGH-SENSITIVITY SERIES (BASELINE, 2HR, 4HR, 6HR) Routine 05/08/2025 8:40 PM CDT EGFR Routine 05/08/2025 6:17 AM CDT DIFFERENTIAL AUTO Routine 05/08/2025 6:1 7 AM CDT COMPREHENSIVE METABOLIC PANEL Routine 05/08/2025 6:17 AM CDT CBC WITH AUTO DIFFERENTIAL Routine 05/08/2025 6:17 AM CDT URINALYSIS, MICROSCOPIC ONLY Routine 05/07/2025 6:04 PM CDT URINALYSIS AND REFLEX TO MICROSCOPIC Routine 05/07/2025 6:04 PM CDT MRI LUMBAR SPINE WO CONTRAST IP Routine 05/07/2025 10:24 AM CDT EGFR Routine 05/07/2025 3:00 AM CDT DIFFERENTIAL AUTO Routine 05/07/2025 3:0 0 AM CDT COMPREHENSIVE METABOLIC PANEL Routine 05/07/2025 3:00 AM CDT CBC WITH AUTO DIFFERENTIAL Routine 05/07/2025 3:00 AM CDT TSH Routine 05/07/2025 3:00 AM CDT POCT GLUCOSE DEVICE Routine 05/06/2025 5 :10 PM CDT XR KNEE RIGHT 1 OR 2 VIEWS ED 05/06/2025 2:02 PM CDT XR HIPS BILATERAL 3 OR 4 VW ED 05/06/2025 2:02 PM CDT XR SPINE LUMBAR ROUTINE ED 05/06/2025 2:02 PM CDT URINALYSIS, MICROSCOPIC ONLY STAT 05/06/2025 1:42 PM CDT URINALYSIS AND REFLEX TO MICROSCOPIC AND CULTURE STAT 05/06/2025 1:42 PM CDT XR CHEST 1 VIEW ED 05/06/2025 12:36 PM CDT ECG 12-LEAD STAT 05/06/2025 12:04 PM CDT EGFR STAT 05/06/2025 12:04 PM CDT DIFFERENTIAL AUTO STAT 05/06/2025 12: 04 PM CDT COMPREHENSIVE METABOLIC PANEL STAT 05/06/2025 12:04 PM CDT CBC WITH AUTO DIFFERENTIAL STAT 05/06/2025 12:04 PM CDT EGFR Routine 04/14/2025 10:35 AM CDT Hyperkalemia BASIC METABOLIC PANEL Routine 04/14/2025 10:35 AM CDT Hyperkalemia POTASSIUM LEVEL STAT 04/11/2025 11:38 AM CDT EGFR Routine 04/11/2025 2:37 AM CDT DIFFERENTIAL AUTO Routine 04/11/2025 2:3 7 AM CDT COMPREHENSIVE METABOLIC PANEL Routine 04/11/2025 2:37 AM CDT CBC WITH AUTO DIFFERENTIAL Routine 04/11/2025 2:37 AM CDT TRANSTHORACIC ECHO (TTE) COMPLETE W DOPPLER/CF WO CONTRAST Routine 04/10/2025 3:52 PM CDT ECG 12-LEAD STAT 04/10/2025 10:53 AM CDT POCT GLUCOSE DEVICE Routine 04/10/2025 1 0:03 AM CDT URINALYSIS, MICROSCOPIC ONLY STAT 04/10/2025 9:24 AM CDT URINALYSIS AND REFLEX TO MICROSCOPIC AND CULTURE STAT 04/10/2025 9:[address] HEAD WO CONTRAST ED 04/10/2025 6 :25 AM CDT TROPONIN T HIGH-SENSITIVITY 4-HR Timed 04/10/2025 4:45 AM CDT TROPONIN T HIGH-SENSITIVITY 2-HOUR Timed 04/10/2025 2:53 AM CDT XR CHEST 1 VIEW ED 04/10/2025 12:58 AM CDT EGFR STAT 04/10/2025 12:44 AM CDT DIFFERENTIAL AUTO STAT 04/10/2025 12: 44 AM CDT TROPONIN T HIGH-SENSITIVITY SERIES (BASELINE, 2HR, 4HR, 6HR) STAT 04/10/2025 12:44 AM CDT COMPREHENSIVE METABOLIC PANEL STAT 04/10/2025 12:44 AM CDT CBC WITH AUTO DIFFERENTIAL STAT 04/10/2025 12:44 AM CDT ECG 12-LEAD STAT 04/10/2025 12:32 AM CDT HEMOGLOBIN A1C Routine 01/21/2025 3:11 PM CDT Type 2 diabetes mellitus with stage 3a chronic kidney disease, without long-term current use of insulin (HCC) Iron deficiency anemia secondary to inadequate dietary iron intake Anemia of chronic disease Acquired hypothyroidism Hypertension, essential Excessive vitamin B12 intake LIPID PANEL Routine 01/21/2025 3:11 PM CDT Type 2 diabetes mellitus with stage 3a chronic kidney disease, without long-term current use of insulin (HCC) Iron deficiency anemia secondary to inadequate dietary iron intake Anemia of chronic disease Acquired hypothyroidism Hypertension, essential Excessive vitamin B12 intake ALBUMIN CREATININE RATIO, URINE Routine 06/11/2024 3:25 PM CDT Type 2 diabetes mellitus with microalbuminuria, without long-term current use of insulin (HCC) Hypertension, essential Pure hypercholesterolem ia Stage 3a chronic kidney disease (HCC) DIABETIC EYE EXAM Routine 06/25/2023 FIT OCCULT BLOOD, FECAL Routine 09/02/2020 9:16 AM CDT Anemia, unspecified type SCREENING MAMMOGRAM BILATERAL W MANE Schedule Routine, Read Routine (OP Routine) 07/27/2020 10:50 AM CDT Screening mammogram, encounter for DIABETES FOOT EXAM Routine 01/11/2019 COLONOSCOPY Routine 06/25/2007 DEXA SCAN Routine 03/09/2005 from Last 3 Months or Most Recently Relevant to Health Maintenance Results * Potassium (05/09/2025 11:41 AM CDT) Potassium, pl 4.7 3.3 - 4.9 mmol/L Blood 05/09/2025 11:4 1 AM CDT 05/09/2025 11:59 AM CDT us Harmony Wynne MD LAB BLOOD ORDERABLES Margaret neumann Result RASHMI FOX ([place]) 1 [facility] Department [place] [address] * (ABNORMAL) Troponin T high-sensitivity 6-hour (05/09/2025 3:53 AM CDT) Trop T hs 42(H) <=14 ng/L Comment: Interpretive Data For further hscTnT resources including the diagnostic algorithm and an aid in interpretation, copy and paste this link: https://nrl.testcatalog.org/show/hsTrop Current Interpretive Data last revised 2020. Trop T hs delta See Comment ng/L CE STEVEN FOX (ANNABELLA) Comment:Inappropriate collec tion time to report a delta. Trop T hs pct delta See Comment % RASHMI FOX ([place]) Comment:Inappropriate collec tion time to report a delta. Trop T hs interp See Comment Will FOX (ANNABELLA) Comment:Inappropriate collec tion time to report a delta. Blood 05/09/2025 3:53 AM CDT 05/09/2025 4:34 AM CDT Antwan Kan MD LAB BLOOD ORDERABLES Final Resu lt Performing Organization Address [facility]/ZIP Co de Phone Number RASHMI FOX ([place]NA[place]A) 1 [facility] of [employer] [place] [address] * (ABNORMAL) Troponin T high-sensitivity 4-hour (05/09/2025 3:53 AM CDT) Trop T hs 41(H) <=14 ng/L Comment: Interpretive Data For further hscTnT resources including the diagnostic algorithm and an aid in interpretation, copy and paste this link: https://nrl.testcatalog.org/show/hsTrop Current Interpretive Data last revised 2020. Trop T hs delta See Comment ng/L CE STEVEN FOX ([place]) Comment:Inappropriate collec tion time to report a delta. Trop T hs pct delta See Comment % RASHMI FOX ([place]NA[place]) Comment:Inappropriate collec tion time to report a delta. Trop T hs interp See Comment Will FOX (ANNABELLA) Comment:Inappropriate collec tion time to report a delta. Blood 05/09/2025 3:53 AM CDT 05/09/2025 4:34 AM CDT us Antwan Kan MD LAB BLOOD ORDERABLES Final Resu lt Performing Organization Address [facility]/ZIP Co de Phone Number RASHMI FOX (JAME) 1 [facility] [employer] [place] [address] * (ABNORMAL) eGFR (05/09/2025 3:53 AM CDT) eGFR 48(L) >=60 mL/min/1. 73 m2 Comment: Interpretive Data Reference Interval Normal >/= 90 mL/min/1.73m2 Mildly decreased* 60 - 89 mL/min/1.73m2 Mildly to moderately decreased 45 - 59 mL/min/1.73m2 Moderately to severely decreased 30 - 44 mL/min/1.73m2 Severely decreased 15 - 29 mL/min/1.73m2 Kidney Failure < 15 mL/min/1.73m2 *Relative to young adult level Estimated glomerular filtration rate is determined by the 2020 CKD-EPI equation recommended by the National Kidney Foundation (A Unifying Approach to GFR Estimation: Recommendations of the NKF-ASK Task Force on Reassessing the Inclusion of Race in Diagnosing Kidney Disease, JASN 2020). The CKD-EPI equation should not be used for patients with unstable renal function and has not been validated in children and those over 70. Current interpretive data was last reviewed 2021. Blood 05/09/2025 3:53 AM CDT 05/09/2025 4:34 AM CDT us Antwan Kan MD LAB BLOOD ORDERABLES Final Resu lt [facility] ([place]) 1 [facility] [place] [address] * Differential, auto (05/09/2025 3:53 AM CDT) Neutrophil abs 3.83 1.50 - 6.50 K/cumm Imm gran abs 0.08 0.00 - 0.10 K/cumm [facility] ([place]AME) Lymphocyte abs 1.79 0.80 - 3.30 K/cumm [facility] ([place]) Monocyte abs 0.63 0.20 - 0.80 K/cumm [facility] ([place]) Eosinophil abs 0.08 0.00 - 0.50 K/cumm [facility] ([place]) Basophil abs 0.02 0.00 - 0.10 K/cumm [facility] ([place]) Neutrophil pct 59.7 % [facility] ([place]AME) Comment: Interpretive Data Percent cell count reference ranges are not reported, since discordance with absolute values may lead to misinterpretation of CBC data. Current Interpretive Data was last revised on 2018. Imm gran pct 1.2 % [facility] ([place]AME) Comment: Interpretive Data Percent cell count reference ranges are not reported, since discordance with absolute values may lead to misinterpretation of CBC data. Current Interpretive Data was last revised on 2018. Lymphocyte pct 27.8 % [facility] (JAME) Comment: Interpretive Data Percent cell count reference ranges are not reported, since discordance with absolute values may lead to misinterpretation of CBC data. Current Interpretive Data was last revised on 2018. Monocyte pct 9.8 % [facility] ([place]AME) Comment: Interpretive Data Percent cell count reference ranges are not reported, since discordance with absolute values may lead to misinterpretation of CBC data. Current Interpretive Data was last revised on 2018. Eosinophil pct 1.2 % [facility] (JAME) Comment: Interpretive Data Percent cell count reference ranges are not reported, since discordance with absolute values may lead to misinterpretation of CBC data. Current Interpretive Data was last revised on 2018. Basophil pct 0.3 % [facility] (JAME) Comment: Interpretive Data Percent cell count reference ranges are not reported, since discordance with absolute values may lead to misinterpretation of CBC data. Current Interpretive Data was last revised on 2018. Blood 05/09/2025 3:53 AM CDT 05/09/2025 4:34 AM CDT us Antwan aKn MD LAB BLOOD ORDERABLES Final Resu lt RASHMI FOX ([place]) 1 [facility] [place] [address] * (ABNORMAL) CBC with auto differential (05/09/2025 3:53 AM CDT) WBC 6.43 3.80 - 9.90 K/cumm Hgb 11.0(L) 11.9 - 15.5 g/dL RASHMI FOX (JAME) Hct 34.1(L) 35.6 - 45.5 % RASHMI FOX (JAME) Plt 243 150 - 400 K/cumm RASHMI FOX ([place]) MPV 9.9 9.1 - 12.3 fL [facility] ([place]) RBC 4.01 3.90 - 5.20 M/cumm [facility] ([place]) MCV 85.0 81.3 - 96.4 fL [facility] ([place]) MCH 27.4 27.1 - 33.3 pg [facility] ([place]) MCHC 32.3 32.3 - 35.7 g/dL [facility] ([place]) RDW CV 15.6(H) 11.1 - 14.9 % [facility] ([place]) RDW SD 47.9 35.7 - 48.1 fL [facility] ([place]) NRBC abs 0.02(H) 0.00 - 0.01 K/cumm [facility] ([place] Blood 05/09/2025 3:53 AM CDT 05/09/2025 4:34 AM CDT us Antwan Kan MD LAB BLOOD ORDERABLES Final Resu lt [facility] ([place]) 1 [facility] [place] [address] * (ABNORMAL) Comprehensive metabolic panel (05/09/2025 3:53 AM CDT) Sodium 137 135 - 145 mmol/L Potassium, pl 5.2(H) 3.3 - 4.9 mmol/L [facility] ([place] Chloride 103 97 - 110 mmol/L [facility] ([place] CO2 24 22 - 32 mmol/L [facility] ([place]) Anion gap 10 2 - 15 mmol/L [facility] ([place]) BUN 46(H) 6 - 25 mg/dL [facility] ([place]) Creatinine 1.10 0.60 - 1.10 mg/dL [facility] ([place]) Glucose 105 70 - 199 mg/dL [facility] ([place]AME) Comment: Interpretive Data Fasting glucose >/= 126 mg/dl is diagnostic for diabetes. Fasting is defined as no caloric intake for at least 8 hours. Fasting glucose between 100 mg/dl to 125 mg/dl is diagnostic of prediabetes. In a patient with classic symptoms of hyperglycemia or hyperglycemic crisis, a random glucose >/= 200 mg/dl is diagnostic for diabetes. In the absence of unequivocal hyperglycemia, results should be confirmed by repeat testing. The classification and Diagnosis of Diabetes Diabetes Care 2021; 46: S19-S40. Current interpretive data was last revised 2022. Calcium 9.1 8.5 - 10.3 mg/dL [facility] ([place]AME) Bilirubin, total 0.2 0.1 - 1.2 mg/dL [facility] ([place]) Protein, pl 6.0(L) 6.5 - 8.5 g/dL [facility] ([place]) Albumin 3.1(L) 3.5 - 5.0 g/dL [facility] ([place]) Alk phos 85 40 - 130 Units/L [facility] ([place]) ALT <5(L) 7 - 45 Units/L [facility] ([place]) AST 23 10 - 45 Units/L [facility] ([place]) Blood 05/09/2025 3:53 AM CDT 05/09/2025 4:34 AM CDT Antwan Kan MD LAB BLOOD ORDERABLES Final Resu lt RASHMI FOX ([place]) 1 [facility] Department [place] [address] * (ABNORMAL) Troponin T high-sensitivity 2-hour (05/08/2025 10:28 PM CDT) Trop T hs 45(H) <=14 ng/L Comment: Interpretive Data For further hscTnT resources including the diagnostic algorithm and an aid in interpretation, copy and paste this link: https://nrl.testcatalog.org/show/hsTrop Current Interpretive Data last revised 2020. Trop T hs delta -4 ng/L [facility] (JAME) Trop T hs interp Insignificant [facility] ([place]) Blood 05/08/2025 10:2 8 PM CDT 05/08/2025 10:30 PM CDT Antwan Kan MD LAB BLOOD ORDERABLES Final Resu lt Performing Organization Address City/[facility]/ZIP Co de Phone Number RASHMI FOX (JAME) 1 [facility] [place] [address] * ECG 12 lead (05/08/2025 8:57 PM CDT) 05/08/2025 8:57 PM CDT Narrative [facility] - 05/09/2025 8:14 PM CDT Vent Rate: 57 bpm RR Interval: 1036 msec AL Interval: 149 msec QRS Duration: 69 msec QT Interval: 372 msec QTC Interval: 367 msec P-R-T [place]: 40 - 8 - 59 degrees IMPRESSION: SINUS BRADYCARDIA BORDERLINE ECG NO CHANGE FROM PREVIOUS TRACING NOTED Electronically Signed By: Jesus Vasquez MD Antwan Kan MD ECG ORDERABLES Final Result Performing Organization Address [facility] de Phone Number [facility] * (ABNORMAL) Troponin T high-sensitivity series (baseline, 2hr, 4hr, 6hr) (05/08/2025 8:40 PM CDT) Trop T hs 49(H) <=14 ng/L Comment: Interpretive Data For further hscTnT resources including the diagnostic algorithm and an aid in interpretation, copy and paste this link: https://nrl.testcatalog.org/show/hsTrop Current Interpretive Data last revised 2020. Blood 05/08/2025 8:40 PM CDT 05/08/2025 8:58 PM CDT Anwtan Kan MD LAB BLOOD ORDERABLES Final Resu lt Performing Organization Address City/[facility] Co de Phone Number RASHMI FOX (JAME) 1 [facility] [place] [address] * (ABNORMAL) eGFR (05/08/2025 6:17 AM CDT) eGFR 54(L) >=60 mL/min/1. 73 m2 Comment: Interpretive Data Reference Interval Normal >/= 90 mL/min/1.73m2 Mildly decreased* 60 - 89 mL/min/1.73m2 Mildly to moderately decreased 45 - 59 mL/min/1.73m2 Moderately to severely decreased 30 - 44 mL/min/1.73m2 Severely decreased 15 - 29 mL/min/1.73m2 Kidney Failure < 15 mL/min/1.73m2 *Relative to young adult level Estimated glomerular filtration rate is determined by the 2020 CKD-EPI equation recommended by the National Kidney Foundation (A Unifying Approach to GFR Estimation: Recommendations of the NKF-ASK Task Force on Reassessing the Inclusion of Race in Diagnosing Kidney Disease, JASN 2020). The CKD-EPI equation should not be used for patients with unstable renal function and has not been validated in children and those over 70. Current interpretive data was last reviewed 2021. Blood 05/08/2025 6:17 AM CDT 05/08/2025 6:26 AM CDT us Antwan Kan MD LAB BLOOD ORDERABLES Final Resu lt [facility] ([place]) 1 [facility] [place] [address] * Differential, auto (05/08/2025 6:17 AM CDT) Neutrophil abs 3.71 1.50 - 6.50 K/cumm Imm gran abs 0.06 0.00 - 0.10 K/cumm [facility] ([place]AME) Lymphocyte abs 1.71 0.80 - 3.30 K/cumm [facility] ([place]AME) Monocyte abs 0.74 0.20 - 0.80 K/cumm [facility] ([place]) Eosinophil abs 0.07 0.00 - 0.50 K/cumm [facility] ([place]) Basophil abs 0.02 0.00 - 0.10 K/cumm [facility] ([place]AME) Neutrophil pct 58.8 % [facility] ([place]) Comment: Interpretive Data Percent cell count reference ranges are not reported, since discordance with absolute values may lead to misinterpretation of CBC data. Current Interpretive Data was last revised on 2018. Imm gran pct 1.0 % [facility] (JAME) Comment: Interpretive Data Percent cell count reference ranges are not reported, since discordance with absolute values may lead to misinterpretation of CBC data. Current Interpretive Data was last revised on 2018. Lymphocyte pct 27.1 % [facility] ([place]AME) Comment: Interpretive Data Percent cell count reference ranges are not reported, since discordance with absolute values may lead to misinterpretation of CBC data. Current Interpretive Data was last revised on 2018. Monocyte pct 11.7 % [facility] ([place]AME) Comment: Interpretive Data Percent cell count reference ranges are not reported, since discordance with absolute values may lead to misinterpretation of CBC data. Current Interpretive Data was last revised on 2018. Eosinophil pct 1.1 % [facility] (JAME) Comment: Interpretive Data Percent cell count reference ranges are not reported, since discordance with absolute values may lead to misinterpretation of CBC data. Current Interpretive Data was last revised on 2018. Basophil pct 0.3 % [facility] ([place]AME) Comment: Interpretive Data Percent cell count reference ranges are not reported, since discordance with absolute values may lead to misinterpretation of CBC data. Current Interpretive Data was last revised on 2018. Blood 05/08/2025 6:17 AM CDT 05/08/2025 6:26 AM CDT us Antwan Kan MD LAB BLOOD ORDERABLES Final Resu lt RASHMI FOX ([place]) 1 [facility] [place] [address] * (ABNORMAL) CBC with auto differential (05/08/2025 6:17 AM CDT) WBC 6.31 3.80 - 9.90 K/cumm Hgb 12.1 11.9 - 15.5 g/dL RASHMI FOX (JAME) Hct 38.7 35.6 - 45.5 % [facility] ([place]AME) Plt 228 150 - 400 K/cumm [facility] ([place]) MPV 9.4 9.1 - 12.3 fL [facility] ([place]) RBC 4.40 3.90 - 5.20 M/cumm [facility] ([place]) MCV 88.0 81.3 - 96.4 fL [facility] ([place]) MCH 27.5 27.1 - 33.3 pg [facility] ([place]AME) MCHC 31.3(L) 32.3 - 35.7 g/dL [facility] ([place]) RDW CV 15.7(H) 11.1 - 14.9 % [facility] ([place]) RDW SD 51.0(H) 35.7 - 48.1 fL [facility] ([place]AME) NRBC abs 0.00 0.00 - 0.01 K/cumm [facility] ([place] Blood 05/08/2025 6:17 AM CDT 05/08/2025 6:26 AM CDT us Antwan Kan MD LAB BLOOD ORDERABLES Final Resu lt [facility] (JAME) 1 [facility] [place] [address] * (ABNORMAL) Comprehensive metabolic panel (05/08/2025 6:17 AM CDT) Sodium 137 135 - 145 mmol/L Potassium, pl 4.7 3.3 - 4.9 mmol/L [facility] Chloride 102 97 - 110 mmol/L [facility] ([place]) CO2 25 22 - 32 mmol/L [facility] ([place]) Anion gap 10 2 - 15 mmol/L [facility] ([place] BUN 31(H) 6 - 25 mg/dL [facility] ([place]) Creatinine 0.99 0.60 - 1.10 mg/dL [facility] ([place]) Glucose 92 70 - 199 mg/dL [facility] ([place] Comment: Interpretive Data Fasting glucose >/= 126 mg/dl is diagnostic for diabetes. Fasting is defined as no caloric intake for at least 8 hours. Fasting glucose between 100 mg/dl to 125 mg/dl is diagnostic of prediabetes. In a patient with classic symptoms of hyperglycemia or hyperglycemic crisis, a random glucose >/= 200 mg/dl is diagnostic for diabetes. In the absence of unequivocal hyperglycemia, results should be confirmed by repeat testing. The classification and Diagnosis of Diabetes Diabetes Care 2021; 46: S19-S40. Current interpretive data was last revised 2022. Calcium 9.5 8.5 - 10.3 mg/dL [facility] ([place]) Bilirubin, total 0.2 0.1 - 1.2 mg/dL [facility] ([place]) Protein, pl 6.6 6.5 - 8.5 g/dL [facility] ([place]) Albumin 3.4(L) 3.5 - 5.0 g/dL [facility] ([place]) Alk phos 93 40 - 130 Units/L [facility] ([place]) ALT 5(L) 7 - 45 Units/L [facility] ([place]) AST 24 10 - 45 Units/L [facility] ([place]) Blood 05/08/2025 6:17 AM CDT 05/08/2025 6:26 AM CDT us Antwan Kan MD LAB BLOOD ORDERABLES Final Resu lt [facility] ([place]) 1 [facility] [place] [address] * (ABNORMAL) Urinalysis reflex to microscopic (05/07/2025 6:04 PM CDT) Color, ur Yellow Yellow Clarity, ur Turbid(A) Clear [facility] ([place]) Specific gravity, ur 1.023 1.003 - 1.030 [facility] ([place]) pH, urine 6.5 [facility] ([place]) Comment: Interpretive Data U rine pH is affected by diet, medications, systemic acid-base disturbances, and renal tubular function. pH may affect urinary stone formation. For example, urine pH below 6.0 may help reduce the tendency for calcium phosphate stones and pH greater than 6.0 may reduce the tendency for uric acid stone formation. Source: [facility] [employer] Current Interpretive Data was last revised on 2017 Protein, ur ql 1+(A) Negative [facility] ([place]) Glucose, ur ql Negative Negative [facility] ([place]) Ketones, ur Trace Negative [facility] ([place]) Bilirubin, ur Negative Negative [facility] ([place]) Blood, ur Negative Negative [facility] ([place]) Urobilinogen, ur 2.0(A) <2.0 mg/dL [facility] ([place]) Nitrite, ur Negative Negative [facility] ([place]) Leukocyte esterase, ur 1+(A) Negative [facility] ([place]) UA reflex comment Reflex to microscopic UA will be performed. [facility] ([place]) Urine 05/07/2025 6:04 PM CDT 05/07/2025 6:09 PM CDT Antwan Kan MD LAB URINE ORDERABLES Final Resu lt Performing Organization Address City/[facility]/ZIP Co de Phone Number R[facility] (JAME) 1 [facility] [employer] [place] [address] * (ABNORMAL) Urinalysis, microscopic only (05/07/2025 6:04 PM CDT) WBC, ur 6-10(A) 0 - 5 /HPF RBC, ur 0-2 0 - 2 /HPF [facility] ([place]) Epithelial cells, squamous, ur 11-20(A) 0 - 5 /HPF [facility] ([place]) Bacteria, ur 1+(A) [facility] ([place]) Mucous, ur Present(A) [facility] ([place]) Urine 05/07/2025 6:04 PM CDT 05/07/2025 6:09 PM CDT Antwan Kan MD LAB URINE ORDERABLES Final Resu lt Performing Organization Address [facility]/ZIP Co de Phone Number [facility] ([place]AME) 1 [facility] [place] [address] * MRI Lumbar Spine WO Contrast (05/07/2025 10:24 AM CDT) Anatomical Region Laterality Modality Spine N/A Magnetic Resonan ce 05/07/2025 11:0 1 AM CDT Narrative 05/07/2025 11:11 AM CDT EXAM DESCRIPTION: MRI LUMBAR SPINE WO CONTRAST REASON FOR STUDY: Myelopathy, acute, lumbar spine, Bilateral lower extremity weakness Bilateral lower extremity weakness that has progressed to her not being able to stand; pt notes her inability to stand started a few days ago TECHNIQUE: Sagittal and Axial imaging includes T1, T2, STIR sequences. COMPARISON: Lumbar spine radiographs dated 05/06/2025 and 11/04/2021. FINDINGS: SEGMENTATION: 5 wvo-eeu-[id number] lumbar type vertebral bodies. ALIGNMENT: Mild anterolisthesis of L3 on L4 and L4 on L5. Mild retrolisthesis of L5 on S1. VERTEBRAE: The L4 superior endplate mild irregularity could be degenerative in nature or sequelae of prior trauma. Inferior endplate of L2 focal 3 mm T1 and T2 dark, STIR hyperintense signal approaching the endplate is likely a Schmorl's node with edema in a patient without history of malignancy. Previous MRI is not available for comparison. This can be re-evaluated on follow-up MRI in 3 months time as clinically indicated. Multilevel endplate degenerative changes and marginal spur formation. More advanced facet arthropathy throughout the lumbar spine. Mild heterogeneous T1 bone marrow signal is nonspecific. DISC HEIGHT: Diffuse disc desiccation and height loss. HARDWARE: None in the spine. CORD/CAUDA: Conus medullaris terminates at L1. LOWER THORACIC: Incompletely imaged. Degenerative changes without high-grade spinal canal stenosis. INDIVIDUAL DISC LEVELS: L1-L2: No significant disc bulge or spinal canal stenosis. Thickened ligamentum flavum and facet arthropathy with mild neural foraminal narrowing, vfke-ylmwovg-mphr-right. L2-L3: No significant disc bulge or spinal canal stenosis. Thickened ligamentum flavum and facet arthropathy with lqvj-uf-hoxxqaii left and mild right neural foraminal narrowing. L3-L4: Minor disc bulge with thickened ligamentum flavum and facet arthropathy. Effacement of the dorsal lateral thecal sac. Mild neural foraminal narrowing. L4-L5: Anterolisthesis of L4 on L5 with unroofing of the disc. Bilateral facet arthropathy and thickened ligamentum flavum. No significant spinal canal stenosis. Mild to moderate proximal right and mild left neural foraminal narrowing. L5-S1: Minor disc bulge with bilateral facet arthropathy. Tiny central disc protrusion. No significant spinal canal or neural foraminal narrowing. VISUALIZED UPPER ABDOMEN: Prominence of the common bile duct is nonspecific and could be on the basis of post cholecystectomy state. If there has not been a prior cholecystectomy or if there is concern for an obstructive pattern then please correlate with laboratory data and dedicated imaging. Left renal rounded T2 hyperintense foci are incompletely characterized on this MRI but commonly reflect cyst. The need for dedicated imaging as clinically indicated. Partially imaged uterus with bulky appearance is incomplete characterized on this MRI and could reflect underlying fibroids. The need for dedicated transabdominal and transvaginal approach pelvic ultrasound as clinically indicated. OTHER: Partially imaged right and left anterior/lateral paraspinal soft tissue STIR hyperintense signal (series 11, image 2 and series 11, image 15). IMPRESSION: 1. Phfq-vv-bwewkieb lumbar disc degeneration with thickened ligamentum flavum and more advanced facet arthropathy as described. There is no high-grade spinal canal stenosis. 2. Varying degrees of bilateral neural foraminal stenosis and additional findings as above. 3. Partially imaged paraspinal soft tissue STIR hyperintense signal on both sides is nonspecific and could reflect a strain or myositis in the proper clinical scenario. Request clinical correlation. THIS IS AN ELECTRONICALLY VERIFIED FINAL REPORT 05/07/2025 11:11 AM - Electronically signed by Jonas Han D.O. AP: AP Report ID: [id number] Reading Location: [id number] Procedure Note Jonas Han, DO - 05/07/2025 EXAM DESCRIPTION: MRI LUMBAR SPINE WO CONTRAST REASON FOR STUDY: Myelopathy, acute, lumbar spine, Bilateral lowerextremity weakness Bilateral lower extremity weakness that has progressed to her not beingable to stand; pt notes her inability to stand started a few days ago TECHNIQUE: Sagittal and Axial imaging includes T1, T2, STIR sequences. COMPARISON: Lumbar spine radiographs dated 05/06/2025 and 11/04/2021. FINDINGS: SEGMENTATION: 5 tqb-isl-ahaxcez lumbar type vertebral bodies. ALIGNMENT: Mild anterolisthesis of L3 on L4 and L4 on L5. Mild retrolisthesis of L5 on S1. VERTEBRAE: The L4 superior endplate mild irregularity could bedegenerative in nature or sequelae of prior trauma. Inferior endplate of L2 focal 3 mmT1 and T2 dark, STIR hyperintense signal approaching the endplate is likely a Schmorl's node with edema in a patient without history of malignancy. Previous MRI is not available for comparison. This can be re-evaluated on follow-up MRI in 3 months time as clinically indicated. Multilevelendplate degenerative changes and marginal spur formation. More advanced facet arthropathy throughout the lumbar spine. Mild heterogeneous T1 bonemarrow signal is nonspecific. DISC HEIGHT: Diffuse disc desiccation and height loss. HARDWARE: None in the spine. CORD/CAUDA: Conus medullaris terminates at L1. LOWER THORACIC: Incompletely imaged. Degenerative changes without high-grade spinal canal stenosis. INDIVIDUAL DISC LEVELS: L1-L2: No significant disc bulge or spinal canal stenosis. Thickened ligamentum flavum and facet arthropathy with mild neural foraminalnarrowing, tamd-nqzjijm-xjpn-right. L2-L3: No significant disc bulge or spinal canal stenosis. Thickened ligamentum flavum and facet arthropathy with wxgh-iw-ukxedsiq left andmild right neural foraminal narrowing. L3-L4: Minor disc bulge with thickened ligamentum flavum and facet arthropathy. Effacement of the dorsal lateral thecal sac. Mild neural foraminal narrowing. L4-L5: Anterolisthesis of L4 on L5 with unroofing of the disc. Bilateral facet arthropathy and thickened ligamentum flavum. No significant spinal canal stenosis. Mild to moderate proximal right and mild left neural foraminal narrowing. L5-S1: Minor disc bulge with bilateral facet arthropathy. Tiny centraldisc protrusion. No significant spinal canal or neural foraminal narrowing. VISUALIZED UPPER ABDOMEN: Prominence of the common bile duct isnonspecific and could be on the basis of post cholecystectomy state. If there has not been a prior cholecystectomy or if there is concern for an obstructivepattern then please correlate with laboratory data and dedicated imaging. Leftrenal rounded T2 hyperintense foci are incompletely characterized on this MRIbut commonly reflect cyst. The need for dedicated imaging as clinically indicated. Partially imaged uterus with bulky appearance is incomplete characterized on this MRI and could reflect underlying fibroids. The needfor dedicated transabdominal and transvaginal approach pelvic ultrasound as clinically indicated. OTHER: Partially imaged right and left anterior/lateral paraspinal softtissue STIR hyperintense signal (series 11, image 2 and series 11, image 15). IMPRESSION: 1. Zrqc-is-eecbybqz lumbar disc degeneration with thickened ligamentum flavum and more advanced facet arthropathy as described. There is no high-grade spinal canal stenosis. 2. Varying degrees of bilateral neural foraminal stenosis and additional findings as above. 3. Partially imaged paraspinal soft tissue STIR hyperintense signal onboth sides is nonspecific and could reflect a strain or myositis in the proper clinical scenario. Request clinical correlation. THIS IS AN ELECTRONICALLY VERIFIED FINAL REPORT 05/07/2025 11:11 AM - Electronically signed by Jonas Hna D.O. AP: AP Report ID: [id number] Reading Location: [place] [address] [address] [employer] IMG MRI PROCEDURES Final Re sult * (ABNORMAL) eGFR (05/07/2025 3:00 AM CDT) eGFR 53(L) >=60 mL/min/1. 73 m2 Comment: Interpretive Data Reference Interval Normal >/= 90 mL/min/1.73m2 Mildly decreased* 60 - 89 mL/min/1.73m2 Mildly to moderately decreased 45 - 59 mL/min/1.73m2 Moderately to severely decreased 30 - 44 mL/min/1.73m2 Severely decreased 15 - 29 mL/min/1.73m2 Kidney Failure < 15 mL/min/1.73m2 *Relative to young adult level Estimated glomerular filtration rate is determined by the 2020 CKD-EPI equation recommended by the National Kidney Foundation (A Unifying Approach to GFR Estimation: Recommendations of the NKF-ASK Task Force on Reassessing the Inclusion of Race in Diagnosing Kidney Disease, JASN 2020). The CKD-EPI equation should not be used for patients with unstable renal function and has not been validated in children and those over 70. Current interpretive data was last reviewed 2021. Blood 05/07/2025 3:00 AM CDT 05/07/2025 3:39 AM CDT Antwan Kan MD LAB BLOOD ORDERABLES Final Resu lt [facility] ([place]) 1 [facility] [place] [address] * Differential, auto (05/07/2025 3:00 AM CDT) Neutrophil abs 3.05 1.50 - 6.50 K/cumm Imm gran abs 0.05 0.00 - 0.10 K/cumm [facility] ([place]) Lymphocyte abs 1.69 0.80 - 3.30 K/cumm [facility] ([place]) Monocyte abs 0.52 0.20 - 0.80 K/cumm [facility] ([place]) Eosinophil abs 0.04 0.00 - 0.50 K/cumm [facility] ([place]) Basophil abs 0.02 0.00 - 0.10 K/cumm [facility] ([place]) Neutrophil pct 56.8 % [facility] ([place]) Comment: Interpretive Data Percent cell count reference ranges are not reported, since discordance with absolute values may lead to misinterpretation of CBC data. Current Interpretive Data was last revised on 2018. Imm gran pct 0.9 % [facility] ([place]) Comment: Interpretive Data Percent cell count reference ranges are not reported, since discordance with absolute values may lead to misinterpretation of CBC data. Current Interpretive Data was last revised on 2018. Lymphocyte pct 31.5 % [facility] ([place]) Comment: Interpretive Data Percent cell count reference ranges are not reported, since discordance with absolute values may lead to misinterpretation of CBC data. Current Interpretive Data was last revised on 2018. Monocyte pct 9.7 % [facility] ([place]) Comment: Interpretive Data Percent cell count reference ranges are not reported, since discordance with absolute values may lead to misinterpretation of CBC data. Current Interpretive Data was last revised on 2018. Eosinophil pct 0.7 % [facility] ([place]) Comment: Interpretive Data Percent cell count reference ranges are not reported, since discordance with absolute values may lead to misinterpretation of CBC data. Current Interpretive Data was last revised on 2018. Basophil pct 0.4 % [facility] ([place]) Comment: Interpretive Data Percent cell count reference ranges are not reported, since discordance with absolute values may lead to misinterpretation of CBC data. Current Interpretive Data was last revised on 2018. Blood 05/07/2025 3:00 AM CDT 05/07/2025 3:37 AM CDT us Antwan Kan MD LAB BLOOD ORDERABLES Final Resu lt [facility] ([place]) 1 [facility] [place] [address] * (ABNORMAL) CBC with auto differential (05/07/2025 3:00 AM CDT) WBC 5.37 3.80 - 9.90 K/cumm Hgb 10.9(L) 11.9 - 15.5 g/dL [facility] ([place]) Hct 34.1(L) 35.6 - 45.5 % [facility] ([place]) Plt 240 150 - 400 K/cumm [facility] ([place]) MPV 9.4 9.1 - 12.3 fL [facility] ([place]) RBC 3.95 3.90 - 5.20 M/cumm [facility] ([place]) MCV 86.3 81.3 - 96.4 fL [facility] ([place]) MCH 27.6 27.1 - 33.3 pg [facility] ([place]) MCHC 32.0(L) 32.3 - 35.7 g/dL [facility] ([place]) RDW CV 15.7(H) 11.1 - 14.9 % [facility] ([place]) RDW SD 49.5(H) 35.7 - 48.1 fL [facility] ([place]) NRBC abs 0.00 0.00 - 0.01 K/cumm [facility] (JAEM) Blood 05/07/2025 3:00 AM CDT 05/07/2025 3:37 AM CDT Antwan Kan MD LAB BLOOD ORDERABLES Final Resu lt Performing Organization Address City/[facility]/ZIP Co de Phone Number [facility] ([place]) 1 [facility] [place] [address] * TSH (05/07/2025 3:00 AM CDT) Thyroid Stimulating Hormone 3.06 0.30 - 4.20 mcIUnit/mL Blood 05/07/2025 3:00 AM CDT 05/07/2025 3:39 AM CDT Antwan Kna MD LAB BLOOD ORDERABLES Final Resu lt Performing Organization Address [facility] Co de Phone Number [facility] ([place]) 1 [facility] [employer] [place] [address] * (ABNORMAL) Comprehensive metabolic panel (05/07/2025 3:00 AM CDT) Pathologist [facility] Sodium 138 135 - 145 mmol/L Potassium, pl 4.7 3.3 - 4.9 mmol/L [facility] ([place]AME) Chloride 104 97 - 110 mmol/L [facility] ([place]) CO2 24 22 - 32 mmol/L [facility] (JAME) Anion gap 11 2 - 15 mmol/L [facility] ([place]) BUN 31(H) 6 - 25 mg/dL [facility] ([place]) Creatinine 1.01 0.60 - 1.10 mg/dL [facility] ([facility] Glucose 102 70 - 199 mg/dL [facility] ([place]AME) Comment: Interpretive Data Fasting glucose >/= 126 mg/dl is diagnostic for diabetes. Fasting is defined as no caloric intake for at least 8 hours. Fasting glucose between 100 mg/dl to 125 mg/dl is diagnostic of prediabetes. In a patient with classic symptoms of hyperglycemia or hyperglycemic crisis, a random glucose >/= 200 mg/dl is diagnostic for diabetes. In the absence of unequivocal hyperglycemia, results should be confirmed by repeat testing. The classification and Diagnosis of Diabetes Diabetes Care 2021; 46: S19-S40. Current interpretive data was last revised 2022. Calcium 9.5 8.5 - 10.3 mg/dL [facility] ([place]) Bilirubin, total 0.3 0.1 - 1.2 mg/dL [facility] ([place]) Protein, pl 6.4(L) 6.5 - 8.5 g/dL [facility] ([place]) Albumin 3.3(L) 3.5 - 5.0 g/dL [facility] ([place]) Alk phos 85 40 - 130 Units/L [facility] ([place]) ALT <5(L) 7 - 45 Units/L [facility] ([place]) AST 23 10 - 45 Units/L [facility] ([place]) Blood 05/07/2025 3:00 AM CDT 05/07/2025 3:39 AM CDT us Antwan Kan MD LAB BLOOD ORDERABLES Final Resu lt [facility] ([place]) 1 [facility] [employer] [place] [address] * POCT glucose (05/06/2025 5:10 PM CDT) Glucose, POC 89 70 - 199 mg/dL Blood 05/06/2025 5:10 PM CDT 05/06/2025 5:10 PM CDT us Angelica Eagle MD LAB POCT ORDERABLES - DEV ICE Final Result [facility] ([place]) 1 [facility] [place] [address] * XR Spine Lumbar 4 or More Views (05/06/2025 2:02 PM CDT) Anatomical Region Laterality Modality L-spine N/A Computed Radiogr aphy 05/06/2025 2:11 PM CDT Narrative 05/06/2025 2:13 PM CDT EXAM DESCRIPTION: XR SPINE LUMBAR 4 OR MORE VIEWS REASON FOR STUDY: weakness complaints of bilateral leg weakness since yesterday. Pt has good sensation to both legs, but just feels weak when trying to use her walker. Pt also reports a headache since this morning. Pt has chronic headaches and sees a neurologist. Pt took tylenol around 09:30. Speech slightly slurred, but states that is normal. Pt has equal rib trim separator strength. TECHNIQUE: 6 radiographic view(s) of the lumbar spine. COMPARISON: Lumbar spine radiographs 11/04/2021 FINDINGS: The bone mineralization is decreased. No acute fracture is identified given osteopenia. There is straightening of the normal lumbar lordosis. There is facet joint arthropathy, greatest at L3-L4 and L4-L5. There is grade 1 anterolisthesis of L3 on L4 and L4 on L5. There are anterior endplate osteophytes, greatest at L3-L4. There is mild disc space narrowing at L4-L5. IMPRESSION: 1. No acute osseous abnormality. 2. Multilevel lumbar spondylosis. 3. Osteopenia. THIS IS AN ELECTRONICALLY VERIFIED FINAL REPORT 05/06/2025 2:13 PM - Electronically signed by Cameron Lyons M.D. JR: Report ID: [id number] Reading Location: [id number] Procedure Note Cameron Lyons MD - 05/06/2025 EXAM DESCRIPTION: XR SPINE LUMBAR 4 OR MORE VIEWS REASON FOR STUDY: weakness complaints of bilateral leg weakness since yesterday. Pt has goodsensation to both legs, but just feels weak when trying to use her walker. Pt alsoreports a headache since this morning. Pt has chronic headaches and sees a neurologist. Pt took tylenol around 09:30. Speech slightly slurred, but states that is normal. Pt has equal rib trim separator strength. TECHNIQUE: 6 radiographic view(s) of the lumbar spine. COMPARISON: Lumbar spine radiographs 11/04/2021 FINDINGS: The bone mineralization is decreased. No acute fracture is identifiedgiven osteopenia. There is straightening of the normal lumbar lordosis. Thereis facet joint arthropathy, greatest at L3-L4 and L4-L5. There is grade 1 anterolisthesis of L3 on L4 and L4 on L5. There are anterior endplate osteophytes, greatest at L3-L4. There is mild disc space narrowing atL4-L5. IMPRESSION: 1. No acute osseous abnormality. 2. Multilevel lumbar spondylosis. 3. Osteopenia. THIS IS AN ELECTRONICALLY VERIFIED FINAL REPORT 05/06/2025 2:13 PM - Electronically signed by Cameron AVELAR JR Report ID: [id number] Reading Location: [id number] [facility] IMG XR PROCEDURES Final Result * XR Hips Bilateral 3 or 4 Views (05/06/2025 2:02 PM CDT) Anatomical Region Laterality Modality Lower Extremities, Hip, Pelvis Bilateral C omputed Radiography 05/06/2025 2:10 PM CDT Narrative 05/06/2025 2:11 PM CDT EXAM DESCRIPTION: XR HIPS BILATERAL 3 OR 4 VW REASON FOR STUDY: pain complaints of bilateral leg weakness since yesterday. Pt has good sensation to both legs, but just feels weak when trying to use her walker. Pt also reports a headache since this morning. Pt has chronic headaches and sees a neurologist. Pt took tylenol around 09:30. Speech slightly slurred, but states that is normal. Pt has equal rib trim separator strength. TECHNIQUE: AP pelvis, 2 views of the right hip and 2 views of the left hip. COMPARISON: None FINDINGS: BONES/JOINTS: There is no acute fracture or dislocation. There is mild osteoarthritis in both hip joints. SOFT TISSUES: No acute findings. OTHER: No other acute findings. IMPRESSION: No acute osseous abnormality. THIS IS AN ELECTRONICALLY VERIFIED FINAL REPORT 05/06/2025 2:11 PM - Electronically signed by Cameron AVELAR JR Report ID: [id number] Reading Location: [id number] Procedure Note Cameron Lyons MD - 05/06/2025 EXAM DESCRIPTION: XR HIPS BILATERAL 3 OR 4 VW REASON FOR STUDY: pain complaints of bilateral leg weakness since yesterday. Pt has goodsensation to both legs, but just feels weak when trying to use her walker. Pt alsoreports a headache since this morning. Pt has chronic headaches and sees a neurologist. Pt took tylenol around 09:30. Speech slightly slurred, but states that is normal. Pt has equal rib trim separator strength. TECHNIQUE: AP pelvis, 2 views of the right hip and 2 views of the lefthip. COMPARISON: None FINDINGS: BONES/JOINTS: There is no acute fracture or dislocation. There is mild osteoarthritis in both hip joints. SOFT TISSUES: No acute findings. OTHER: No other acute findings. IMPRESSION: No acute osseous abnormality. THIS IS AN ELECTRONICALLY VERIFIED FINAL REPORT 05/06/2025 2:11 PM - Electronically signed by Cameron Lyons M.D. JR: Report ID: [id number] Reading Location: [id number] us Angelica Eagle MD IMG XR PROCEDURES Final R esult * XR Knee Right 1 or 2 Views (05/06/2025 2:02 PM CDT) Anatomical Region Laterality Modality Lower Extremities, Knee Right Computed Radiography 05/06/2025 2:09 PM CDT Narrative 05/06/2025 2:10 PM CDT EXAM DESCRIPTION: XR KNEE RIGHT 1 OR 2 VIEWS REASON FOR STUDY: pain complaints of bilateral leg weakness since yesterday. Pt has good sensation to both legs, but just feels weak when trying to use her walker. Pt also reports a headache since this morning. Pt has chronic headaches and sees a neurologist. Pt took tylenol around 09:30. Speech slightly slurred, but states that is normal. Pt has equal rib trim separator strength. TECHNIQUE: 2 radiographic view(s) of the right knee . COMPARISON: None FINDINGS: The bone mineralization is decreased. No acute fracture is identified given osteopenia. There is no significant knee joint effusion. IMPRESSION: No acute osseous abnormality is identified given osteopenia. If there is concern for occult fracture, CT or MRI could be considered. THIS IS AN ELECTRONICALLY VERIFIED FINAL REPORT 05/06/2025 2:10 PM - Electronically signed by Cameron Lyons M.D. JR: Report ID: [id number] Reading Location: [id number] Procedure Note Cameron Lyons MD - 05/06/2025 EXAM DESCRIPTION: XR KNEE RIGHT 1 OR 2 VIEWS REASON FOR STUDY: pain complaints of bilateral leg weakness since yesterday. Pt has goodsensation to both legs, but just feels weak when trying to use her walker. Pt alsoreports a headache since this morning. Pt has chronic headaches and sees a neurologist. Pt took tylenol around 09:30. Speech slightly slurred, but states that is normal. Pt has equal rib trim separator strength. TECHNIQUE: 2 radiographic view(s) of the right knee . COMPARISON: None FINDINGS: The bone mineralization is decreased. No acute fracture is identifiedgiven osteopenia. There is no significant knee joint effusion. IMPRESSION: No acute osseous abnormality is identified given osteopenia. If there is concern for occult fracture, CT or MRI could be considered. THIS IS AN ELECTRONICALLY VERIFIED FINAL REPORT 05/06/2025 2:10 PM - Electronically signed by Cameron Lyons M.D. JR: Report ID: [id number] Reading Location: [id number] Angelica Eagle MD IMG XR PROCEDURES Final R esult * (ABNORMAL) Urinalysis reflex to microscopic and culture Urine (05/06/2025 1:42 PM CDT) Color, ur Yellow Yellow Clarity, ur Turbid(A) Clear [facility] ([place]) Specific gravity, ur 1.022 1.003 - 1.030 [facility] ([place]) pH, urine 7.0 [facility] ([place]) Comment: Interpretive Data U rine pH is affected by diet, medications, systemic acid-base disturbances, and renal tubular function. pH may affect urinary stone formation. For example, urine pH below 6.0 may help reduce the tendency for calcium phosphate stones and pH greater than 6.0 may reduce the tendency for uric acid stone formation. Source: [facility] [employer] Current Interpretive Data was last revised on 2017 Protein, ur ql 1+(A) Negative [facility] ([place]) Glucose, ur ql Negative Negative [facility] ([place]) Ketones, ur Negative Negative [facility] ([place]) Bilirubin, ur Negative Negative [facility] ([place]) Blood, ur Negative Negative [facility] ([place]) Urobilinogen, ur <2.0 <2.0 mg/dL [facility] ([place]) Nitrite, ur Negative Negative [facility] ([place]) Leukocyte esterase, ur Negative Negative [facility] ([place]) UA reflex comment Reflex to microscopic UA will be performed. [facility] Urine 05/06/2025 1:42 PM CDT 05/06/2025 1:53 PM CDT us Angelica Eagle MD LAB MICROBIOLOGY - GENERA L ORDERABLES Final Result [facility] ([place]) 1 [facility] Department [place] [address] * (ABNORMAL) Urinalysis, microscopic only (05/06/2025 1:42 PM CDT) WBC, ur 0-5 0 - 5 /HPF RBC, ur 0-2 0 - 2 /HPF [facility] ([place]) Epithelial cells, squamous, ur 6-10(A) 0 - 5 /HPF [facility] ([place]) Bacteria, ur Trace(A) [facility] ([place]) Mucous, ur Present(A) [facility] ([place]) Culture Reflex Comment Reflex conditions for urine culture (WBC >10) not met. [facility] ([place]) Urine 05/06/2025 1:42 PM CDT 05/06/2025 1:53 PM CDT Angelica Eagle MD LAB URINE ORDERABLES Margaret neumann Result [facility] ([place]) 1 [facility] [place] [address] * XR Chest 1 Vw Portable (05/06/2025 12:36 PM CDT) Anatomical Region Laterality Modality Body, Chest N/A Computed Radiogr aphy 05/06/2025 12:5 5 PM CDT Narrative 05/06/2025 12:55 PM CDT EXAM DESCRIPTION: XR CHEST 1 VIEW REASON FOR STUDY: weakness Pt brought to ER via EMS from home with complaints of bilateral leg weakness since yesterday. Pt has good sensation to both legs, but just feels weak when trying to use her walker. Pt also reports a headache since this morning. Pt has chronic headaches and sees a neurologist. Pt took tylenol around 09:30. Speech slightly slurred, but states that is normal. Pt has equal rib trim separator strength. TECHNIQUE: Single radiographic view(s) of the chest. COMPARISON: Chest radiograph 04/10/2025 FINDINGS: The heart appears normal in size. There is blunting of the left costophrenic angle which could reflect trace pleural effusion. IMPRESSION: Trace left pleural effusion. THIS IS AN ELECTRONICALLY VERIFIED FINAL REPORT 05/06/2025 12:55 PM - Electronically signed by Cameron Lyons M.D. JR: Report ID: [id number] Reading Location: [place] [address] Procedure Note Cameron Lyons MD - 05/06/2025 EXAM DESCRIPTION: XR CHEST 1 VIEW REASON FOR STUDY: weakness Pt brought to ER via EMS from home with complaints of bilateral legweakness since yesterday. Pt has good sensation to both legs, but just feels weakwhen trying to use her walker. Pt also reports a headache since this morning.Pt has chronic headaches and sees a neurologist. Pt took tylenol [id number]. Speech slightly slurred, but states that is normal. Pt has equalgrip strength. TECHNIQUE: Single radiographic view(s) of the chest. COMPARISON: Chest radiograph 04/10/2025 FINDINGS: The heart appears normal in size. There is blunting of the leftcostophrenic angle which could reflect trace pleural effusion. IMPRESSION: Trace left pleural effusion. THIS IS AN ELECTRONICALLY VERIFIED FINAL REPORT 05/06/2025 12:55 PM - Electronically signed by Cameron Lyons M.D. JR: Report ID: [id number] Reading Location: [id number] Joie HU IMG XR PROCEDURES Final Result * ECG 12 lead (05/06/2025 12:04 PM CDT) 05/06/2025 12:0 4 PM CDT Narrative [facility] - 05/06/2025 1:14 PM CDT Vent Rate: 59 bpm RR Interval: 1011 msec AL Interval: 134 msec QRS Duration: 82 msec QT Interval: 360 msec QTC Interval: 359 msec P-R-T [place]: 40 - 6 - 53 degrees IMPRESSION: SINUS BRADYCARDIA WITH SINUS ARRHYTHMIA BORDERLINE ECG NO CHANGE FROM PREVIOUS TRACING NOTED Electronically Signed By: Jesus Vasquez MD us Angelica Eagle MD ECG ORDERABLES Final Res ult [facility] [place] [facility] * (ABNORMAL) eGFR (05/06/2025 12:04 PM CDT) eGFR 54(L) >=60 mL/min/1. 73 m2 Comment: Interpretive Data Reference Interval Normal >/= 90 mL/min/1.73m2 Mildly decreased* 60 - 89 mL/min/1.73m2 Mildly to moderately decreased 45 - 59 mL/min/1.73m2 Moderately to severely decreased 30 - 44 mL/min/1.73m2 Severely decreased 15 - 29 mL/min/1.73m2 Kidney Failure < 15 mL/min/1.73m2 *Relative to young adult level Estimated glomerular filtration rate is determined by the 2020 CKD-EPI equation recommended by the National Kidney Foundation (A Unifying Approach to GFR Estimation: Recommendations of the NKF-ASK Task Force on Reassessing the Inclusion of Race in Diagnosing Kidney Disease, JASN 2020). The CKD-EPI equation should not be used for patients with unstable renal function and has not been validated in children and those over 70. Current interpretive data was last reviewed 2021. Blood 05/06/2025 12:0 4 PM CDT 05/06/2025 12:07 PM CDT us Angelica Eagle MD LAB BLOOD ORDERABLES Margaret neumann Result [facility] ([place]) 1 [facility] Department of Laboratories [place], [place] [id number] * Differential, auto (05/06/2025 12:04 PM CDT) Neutrophil abs 4.76 1.50 - 6.50 K/cumm Imm gran abs 0.05 0.00 - 0.10 K/cumm [facility] ([place]) Lymphocyte abs 1.42 0.80 - 3.30 K/cumm [facility] ([place]) Monocyte abs 0.56 0.20 - 0.80 K/cumm [facility] ([place]) Eosinophil abs 0.02 0.00 - 0.50 K/cumm [facility] ([place]) Basophil abs 0.02 0.00 - 0.10 K/cumm [facility] ([place]) Neutrophil pct 69.7 % [facility] ([place]) Comment: Interpretive Data Percent cell count reference ranges are not reported, since discordance with absolute values may lead to misinterpretation of CBC data. Current Interpretive Data was last revised on 2018. Imm gran pct 0.7 % [facility] ([place]) Comment: Interpretive Data Percent cell count reference ranges are not reported, since discordance with absolute values may lead to misinterpretation of CBC data. Current Interpretive Data was last revised on 2018. Lymphocyte pct 20.8 % [facility] ([place]) Comment: Interpretive Data Percent cell count reference ranges are not reported, since discordance with absolute values may lead to misinterpretation of CBC data. Current Interpretive Data was last revised on 2018. Monocyte pct 8.2 % [facility] ([place]) Comment: Interpretive Data Percent cell count reference ranges are not reported, since discordance with absolute values may lead to misinterpretation of CBC data. Current Interpretive Data was last revised on 2018. Eosinophil pct 0.3 % [facility] ([place]) Comment: Interpretive Data Percent cell count reference ranges are not reported, since discordance with absolute values may lead to misinterpretation of CBC data. Current Interpretive Data was last revised on 2018. Basophil pct 0.3 % [facility] ([place]) Comment: Interpretive Data Percent cell count reference ranges are not reported, since discordance with absolute values may lead to misinterpretation of CBC data. Current Interpretive Data was last revised on 2018. Blood 05/06/2025 12:0 4 PM CDT 05/06/2025 12:07 PM CDT us Angelica Eagle MD LAB BLOOD ORDERABLES Margaret neumann Result [facility] ([place]) 1 [facility] Department [place] [address] * (ABNORMAL) CBC with auto differential (05/06/2025 12:04 PM CDT) WBC 6.83 3.80 - 9.90 K/cumm Hgb 11.4(L) 11.9 - 15.5 g/dL [facility] ([place]) Hct 35.3(L) 35.6 - 45.5 % [facility] ([place]) Plt 274 150 - 400 K/cumm [facility] ([place]) MPV 9.8 9.1 - 12.3 fL [facility] ([place]) RBC 4.10 3.90 - 5.20 M/cumm [facility] ([place]) MCV 86.1 81.3 - 96.4 fL [facility] ([place]) MCH 27.8 27.1 - 33.3 pg [facility] ([place]) MCHC 32.3 32.3 - 35.7 g/dL [facility] ([place] RDW CV 15.7(H) 11.1 - 14.9 % [facility] ([place] RDW SD 49.1(H) 35.7 - 48.1 fL [facility] ([place]) NRBC abs 0.00 0.00 - 0.01 K/cumm [facility] ([place]) Blood 05/06/2025 12:0 4 PM CDT 05/06/2025 12:07 PM CDT us Angelica Eagle MD LAB BLOOD ORDERABLES Margaret neumann Result [facility] ([place]) 1 [facility] [place] [address] * (ABNORMAL) Comprehensive metabolic panel (05/06/2025 12:04 PM CDT) Sodium 139 135 - 145 mmol/L Potassium, pl 4.8 3.3 - 4.9 mmol/L [facility] ([place]) Chloride 101 97 - 110 mmol/L [facility] ([place]) CO2 24 22 - 32 mmol/L [facility] ([place]) Anion gap 15 2 - 15 mmol/L [facility] ([place]) BUN 33(H) 6 - 25 mg/dL [facility] ([place]) Creatinine 1.00 0.60 - 1.10 mg/dL [facility] ([place] Glucose 174 70 - 199 mg/dL [facility] ([place]) Comment: Interpretive Data Fasting glucose >/= 126 mg/dl is diagnostic for diabetes. Fasting is defined as no caloric intake for at least 8 hours. Fasting glucose between 100 mg/dl to 125 mg/dl is diagnostic of prediabetes. In a patient with classic symptoms of hyperglycemia or hyperglycemic crisis, a random glucose >/= 200 mg/dl is diagnostic for diabetes. In the absence of unequivocal hyperglycemia, results should be confirmed by repeat testing. The classification and Diagnosis of Diabetes Diabetes Care 2021; 46: S19-S40. Current interpretive data was last revised 2022. Calcium 9.6 8.5 - 10.3 mg/dL [facility] ([place]) Bilirubin, total <0.2 0.1 - 1.2 mg/dL [facility] ([place]) Protein, pl 6.7 6.5 - 8.5 g/dL [facility] ([place]) Albumin 3.5 3.5 - 5.0 g/dL [facility] ([place]) Alk phos 93 40 - 130 Units/L [facility] ([place]) ALT 15 7 - 45 Units/L [facility] ([place]) AST 24 10 - 45 Units/L [facility] ([place]) Blood 05/06/2025 12:0 4 PM CDT 05/06/2025 12:07 PM CDT us Angelica Eagle MD LAB BLOOD ORDERABLES Margaret neumann Result [facility] ([place]) 1 [facility] Department [place] [address] * (ABNORMAL) eGFR (04/14/2025 10:35 AM CDT) eGFR 51(L) >=60 mL/min/1. 73 m2 Comment: Interpretive Data Reference Interval Normal >/= 90 mL/min/1.73m2 Mildly decreased* 60 - 89 mL/min/1.73m2 Mildly to moderately decreased 45 - 59 mL/min/1.73m2 Moderately to severely decreased 30 - 44 mL/min/1.73m2 Severely decreased 15 - 29 mL/min/1.73m2 Kidney Failure < 15 mL/min/1.73m2 *Relative to young adult level Estimated glomerular filtration rate is determined by the 2020 CKD-EPI equation recommended by the National Kidney Foundation (A Unifying Approach to GFR Estimation: Recommendations of the NKF-ASK Task Force on Reassessing the Inclusion of Race in Diagnosing Kidney Disease, JASN 2020). The CKD-EPI equation should not be used for patients with unstable renal function and has not been validated in children and those over 70. Current interpretive data was last reviewed 2021. Blood 04/14/2025 10:3 5 AM CDT 04/14/2025 10:38 AM CDT us Harmony Wynne MD LAB BLOOD ORDERABLES Margaret l Result [facility] ([place]) 1 [facility] [place] [address] * (ABNORMAL) Basic metabolic panel (04/14/2025 10:35 AM CDT) Sodium 141 135 - 145 mmol/L Potassium, pl 4.7 3.3 - 4.9 mmol/L [facility] ([place]) Chloride 103 97 - 110 mmol/L [facility] ([place]) CO2 26 22 - 32 mmol/L [facility] ([place]) Anion gap 12 2 - 15 mmol/L [facility] ([place]) BUN 31(H) 6 - 25 mg/dL [facility] ([place]) Creatinine 1.04 0.60 - 1.10 mg/dL [facility] ([place]) Glucose 123 70 - 199 mg/dL [facility] ([place]) Comment: Interpretive Data Fasting glucose >/= 126 mg/dl is diagnostic for diabetes. Fasting is defined as no caloric intake for at least 8 hours. Fasting glucose between 100 mg/dl to 125 mg/dl is diagnostic of prediabetes. In a patient with classic symptoms of hyperglycemia or hyperglycemic crisis, a random glucose >/= 200 mg/dl is diagnostic for diabetes. In the absence of unequivocal hyperglycemia, results should be confirmed by repeat testing. The classification and Diagnosis of Diabetes Diabetes Care 2021; 46: S19-S40. Current interpretive data was last revised 2022. Calcium 9.4 8.5 - 10.3 mg/dL [facility] ([place]) Blood 04/14/2025 10:3 5 AM CDT 04/14/2025 10:38 AM CDT Harmony Wynne MD LAB BLOOD ORDERABLES Margaret l Result [facility] ([place]) 1 [facility] [employer] [place] [address] * (ABNORMAL) Potassium (04/11/2025 11:38 AM CDT) Potassium, pl 5.1(H) 3.3 - 4.9 mmol/L Blood 04/11/2025 11:3 8 AM CDT 04/11/2025 11:43 AM CDT Harmony Wynne MD LAB BLOOD ORDERABLES Margaret l Result Performing Organization Address City/[facility] Co de Phone Number [facility] ([place]) 1 [facility] [employer] [place] [place] [address] * (ABNORMAL) eGFR (04/11/2025 2:37 AM CDT) eGFR 46(L) >=60 mL/min/1. 73 m2 Comment: Interpretive Data Reference Interval Normal >/= 90 mL/min/1.73m2 Mildly decreased* 60 - 89 mL/min/1.73m2 Mildly to moderately decreased 45 - 59 mL/min/1.73m2 Moderately to severely decreased 30 - 44 mL/min/1.73m2 Severely decreased 15 - 29 mL/min/1.73m2 Kidney Failure < 15 mL/min/1.73m2 *Relative to young adult level Estimated glomerular filtration rate is determined by the 2020 CKD-EPI equation recommended by the National Kidney Foundation (A Unifying Approach to GFR Estimation: Recommendations of the NKF-ASK Task Force on Reassessing the Inclusion of Race in Diagnosing Kidney Disease, JASN 2020). The CKD-EPI equation should not be used for patients with unstable renal function and has not been validated in children and those over 70. Current interpretive data was last reviewed 2021. Blood 04/11/2025 2:37 AM CDT 04/11/2025 3:32 AM CDT Silvina Elena MD LAB BLOOD ORDERABLES Margaret nel Result [facility] ([place]) 1 [facility] [place] [address] * Differential, auto (04/11/2025 2:37 AM CDT) Neutrophil abs 4.57 1.50 - 6.50 K/cumm Imm gran abs 0.02 0.00 - 0.10 K/cumm [facility] ([place]) Lymphocyte abs 1.25 0.80 - 3.30 K/cumm [facility] ([place]) Monocyte abs 0.73 0.20 - 0.80 K/cumm [facility] ([place]) Eosinophil abs 0.04 0.00 - 0.50 K/cumm [facility] ([place]) Basophil abs 0.01 0.00 - 0.10 K/cumm [facility] ([place]) Neutrophil pct 69.0 % [facility] ([place]) Comment: Interpretive Data Percent cell count reference ranges are not reported, since discordance with absolute values may lead to misinterpretation of CBC data. Current Interpretive Data was last revised on 2018. Imm gran pct 0.3 % [facility] ([place]) Comment: Interpretive Data Percent cell count reference ranges are not reported, since discordance with absolute values may lead to misinterpretation of CBC data. Current Interpretive Data was last revised on 2018. Lymphocyte pct 18.9 % [facility] ([place]) Comment: Interpretive Data Percent cell count reference ranges are not reported, since discordance with absolute values may lead to misinterpretation of CBC data. Current Interpretive Data was last revised on 2018. Monocyte pct 11.0 % [facility] ([place]) Comment: Interpretive Data Percent cell count reference ranges are not reported, since discordance with absolute values may lead to misinterpretation of CBC data. Current Interpretive Data was last revised on 2018. Eosinophil pct 0.6 % [facility] ([place]) Comment: Interpretive Data Percent cell count reference ranges are not reported, since discordance with absolute values may lead to misinterpretation of CBC data. Current Interpretive Data was last revised on 2018. Basophil pct 0.2 % [facility] ([place]) Comment: Interpretive Data Percent cell count reference ranges are not reported, since discordance with absolute values may lead to misinterpretation of CBC data. Current Interpretive Data was last revised on 2018. Blood 04/11/2025 2:37 AM CDT 04/11/2025 3:32 AM CDT us Silvina Elena MD LAB BLOOD ORDERABLES Margaret neumann Result [facility] ([place]) 1 [facility] [place] [address] * (ABNORMAL) CBC with auto differential (04/11/2025 2:37 AM CDT) WBC 6.62 3.80 - 9.90 K/cumm Hgb 11.1(L) 11.9 - 15.5 g/dL [facility] ([place]) Hct 34.6(L) 35.6 - 45.5 % [facility] ([place]) Plt 196 150 - 400 K/cumm [facility] ([place]) MPV 10.3 9.1 - 12.3 fL [facility] ([place]) RBC 4.09 3.90 - 5.20 M/cumm [facility] ([place]) MCV 84.6 81.3 - 96.4 fL [facility] ([place]) MCH 27.1 27.1 - 33.3 pg [facility] ([place]) MCHC 32.1(L) 32.3 - 35.7 g/dL [facility] ([place]) RDW CV 15.9(H) 11.1 - 14.9 % [facility] ([place]) RDW SD 49.1(H) 35.7 - 48.1 fL [facility] ([place]) NRBC abs 0.00 0.00 - 0.01 K/cumm [facility] ([place]) Blood 04/11/2025 2:37 AM CDT 04/11/2025 3:32 AM CDT us Silvina Elena MD LAB BLOOD ORDERABLES Margaret nuemann Result [facility] ([place]) 1 [facility] [place] [address] * (ABNORMAL) Comprehensive metabolic panel (04/11/2025 2:37 AM CDT) Sodium 138 135 - 145 mmol/L Potassium, pl 5.4(H) 3.3 - 4.9 mmol/L [facility] ([place]) Chloride 102 97 - 110 mmol/L [facility] ([place]) CO2 25 22 - 32 mmol/L [facility] ([place]) Anion gap 11 2 - 15 mmol/L [facility] ([place]) BUN 33(H) 6 - 25 mg/dL [facility] ([place]) Creatinine 1.15(H) 0.60 - 1.10 mg/dL [facility] ([place]) Glucose 94 70 - 199 mg/dL [facility] ([place]) Comment: Interpretive Data Fasting glucose >/= 126 mg/dl is diagnostic for diabetes. Fasting is defined as no caloric intake for at least 8 hours. Fasting glucose between 100 mg/dl to 125 mg/dl is diagnostic of prediabetes. In a patient with classic symptoms of hyperglycemia or hyperglycemic crisis, a random glucose >/= 200 mg/dl is diagnostic for diabetes. In the absence of unequivocal hyperglycemia, results should be confirmed by repeat testing. The classification and Diagnosis of Diabetes Diabetes Care 2021; 46: S19-S40. Current interpretive data was last revised 2022. Calcium 9.3 8.5 - 10.3 mg/dL [facility] ([place]) Bilirubin, total 0.3 0.1 - 1.2 mg/dL [facility] ([place]) Protein, pl 6.5 6.5 - 8.5 g/dL [facility] ([place]) Albumin 3.2(L) 3.5 - 5.0 g/dL [facility] ([place]) Alk phos 80 40 - 130 Units/L [facility] ([place]) ALT <5(L) 7 - 45 Units/L [facility] ([place]) AST 34 10 - 45 Units/L [facility] ([place]) Comment: Hemolysis present. Results may be affected. Slightly Hemolyzed Specimen Blood 04/11/2025 2:37 AM CDT 04/11/2025 3:32 AM CDT us Silvina Elena MD LAB BLOOD ORDERABLES Margaret neumann Result [facility] ([place]) 1 [facility] Department of Laboratories [place], [place] [id number] * TRANSTHORACIC ECHO (TTE) COMPLETE W DOPPLER/CF WO CONTRAST (04/10/2025 3:52 PM CDT) Estimated EF 70 % CONS SCIMAGE Anatomical Region Laterality Modality Ultrasound 04/10/2025 3:42 PM CDT Narrative 04/10/2025 4:53 PM CDT [address] [address] Echocardiogram Report Patient Name: NICOLLE HERNÁNDEZ : 1935 Study Date: 04/10/2025 3:42:13 PM Gender: F Tech: Location: [id number] Ref Provider: MELVIN HUNTER Height(Cm): BSA: Weight(Kg): Quality: Adequate Order Provider: MELVIN HUNTER PROCEDURES: Echocardiographic Report: Transthoracic echocardiogram with complete 2D, M-Mode, and color Doppler examination. INDICATIONS: Chest Pain. MEASUREMENTS: 2D/MM Value Range Doppler Value Range EF Teich MM 87.0 % [ 54.0 - 74.0 ] CHRIS Vmax 2.96 cm2 Estimated EF 70 to 75 % AV Mean PG 5 mmHg LVIDd MM 4.60 cm [ 3.80 - 5.20 ] AV Peak Yassine 1.53 m/s [ 1.00 - 1.70 ] LVIDs MM 2.00 cm [ 2.20 - 3.50 ] AV VTI 31.98 cm LVPWd MM 0.70 cm [ 0.60 - 0.90 ] LVOT Diam 1.97 cm IVSd MM 0.70 cm [ 0.60 - 0.90 ] LVOT Peak Yassine 1.49 m/s [ 0.70 - 1.10 ] LA Dimension MM 3.37 cm [ 2.70 - 3.80 ] LVOT VTI 28.35 cm AoR Diam MM 2.39 cm [ 2.70 - 3.70 ] MV E Peak Yassine 0.46 m/s [ 0.60 - 1.30 ] ACS MM 1.80 cm MV A Peak Yassine 1.05 m/s [ 1.00 - 1.20 ] MV Mean PG 2 mmHg MV PHT 122 msec [ 20 - 100 ] MVA 4.00 MV Decel Time 422 msec [ 104 - 258 ] PV Peak Yassine 0.90 m/s [ 0.40 - 0.80 ] TR Peak Yassine 3.41 m/s [ 1.00 - 2.80 ] TR Peak PG 47 mmHg RVSP 55.00 mmHg [ 10.00 - 36.00 ] E` 0.04 m/s E/E` 12.11 [ <= 10.00 ] PA Pressure 55.00 mmHg [ 10.00 - 36.00 ] 2D/MM Value Range Doppler Value Range - FINDINGS: Atrial Septum: Normal atrial septum. Left Ventricle: Moderate concentric left ventricular hypertrophy. Hyperdynamic left ventricular function. No focal wall motion abnormalities. Diastolic dysfunction is present. Ejection Fraction is estimated to be 70 to 75 %. Left Atrium: The left atrium is normal in size. Right Ventricle: Normal right ventricular size. Normal right ventricular systolic function. Right Atrium: The right atrium is normal in size. Aortic Valve: Normal structure of the aortic valve. Mild aortic valve regurgitation. Mitral Valve: Normal structure of the mitral valve. Trivial regurgitation of the mitral valve. Pulmonic Valve: Normal structure of the pulmonic valve. Mild pulmonic regurgitation. Tricuspid Valve: Normal structure of the tricuspid valve. Severe pulmonary hypertension based on right ventricular systolic pressure. Estimated peak RVSP is 61 to 65 mmHg. Mild tricuspid regurgitation. Pericardium: Normal pericardium with no significant pericardial effusion. Aorta: Normal aortic root. IVC: Normal size and normal respiratory collapse consistent with normal right atrial pressure (<5 mmHg). CONCLUSIONS: Moderate concentric left ventricular hypertrophy. Hyperdynamic left ventricular function. No focal wall motion abnormalities. Diastolic dysfunction is present. Ejection Fraction is estimated to be 70 to 75 %. Normal structure of the mitral valve. Trivial regurgitation of the mitral valve. Normal structure of the aortic valve. Mild aortic valve regurgitation. Normal structure of the tricuspid valve. Severe pulmonary hypertension based on right ventricular systolic pressure. Estimated peak RVSP is 61 to 65 mmHg. Mild tricuspid regurgitation. Normal structure of the pulmonic valve. Mild pulmonic regurgitation. Electronically Signed By: Dr Melvin Hunter 04/10/2025 4:52:32 PM CDT Procedure Note Melvin Hunter MD - 04/10/[address] [place] [address] Echocardiogram Report Patient Name: NICOLLE HERNÁNDEZ : 1935 Study Date: 04/10/2025 3:42:13 PM Gender: F Tech: Location: [id number] Ref Provider: MELVIN HUNTER Height(Cm): BSA: Weight(Kg): Quality: Adequate Order Provider: MELVIN HUNTER PROCEDURES: Echocardiographic Report: Transthoracic echocardiogram with complete 2D, M-Mode, and color Dopplerexamination. INDICATIONS: Chest Pain. MEASUREMENTS: 2D/MM Value Range Doppler ValueRange EF Teich MM 87.0 % [ 54.0 - 74.0 ] CHRIS Vmax 2.96cm2 Estimated EF 70 to 75 % AV Mean PG 5mmHg LVIDd MM 4.60 cm [ 3.80 - 5.20 ] AV Peak Yassine 1.53m/s [ 1.00 - 1.70 ] LVIDs MM 2.00 cm [ 2.20 - 3.50 ] AV VTI 31.98cm LVPWd MM 0.70 cm [ 0.60 - 0.90 ] LVOT Diam 1.97cm IVSd MM 0.70 cm [ 0.60 - 0.90 ] LVOT Peak Yassine 1.49m/s [ 0.70 - 1.10 ] LA Dimension MM 3.37 cm [ 2.70 - 3.80 ] LVOT VTI 28.35cm AoR Diam MM 2.39 cm [ 2.70 - 3.70 ] MV E Peak Yassine 0.46m/s [ 0.60 - 1.30 ] ACS MM 1.80 cm MV A Peak Yassine 1.05m/s [ 1.00 - 1.20 ] MV Mean PG 2 mmHg MV PHT 122 msec [ 20 - 100 ] MVA 4.00 MV Decel Time 422 msec [ 104 - 258 ] PV Peak Yassine 0.90 m/s [ 0.40 - 0.80 ] TR Peak Yassine 3.41 m/s [ 1.00 - 2.80 ] TR Peak PG 47 mmHg RVSP 55.00 mmHg [ 10.00 - 36.00 ] E` 0.04 m/s E/E` 12.11 [ <= 10.00 ] PA Pressure 55.00 mmHg [ 10.00 - 36.00 ] 2D/MM Value Range Doppler ValueRange - FINDINGS: Atrial Septum: Normal atrial septum. Left Ventricle: Moderate concentric left ventricular hypertrophy. Hyperdynamic leftventricular function. No focal wall motion abnormalities. Diastolic dysfunction is present.Ejection Fraction is estimated to be 70 to 75 %. Left Atrium: The left atrium is normal in size. Right Ventricle: Normal right ventricular size. Normal right ventricular systolicfunction. Right Atrium: The right atrium is normal in size. Aortic Valve: Normal structure of the aortic valve. Mild aortic valve regurgitation. Mitral Valve: Normal structure of the mitral valve. Trivial regurgitation of the mitralvalve. Pulmonic Valve: Normal structure of the pulmonic valve. Mild pulmonic regurgitation. Tricuspid Valve: Normal structure of the tricuspid valve. Severe pulmonary hypertensionbased on right ventricular systolic pressure. Estimated peak RVSP is 61 to 65 mmHg. Mildtricuspid regurgitation. Pericardium: Normal pericardium with no significant pericardial effusion. Aorta: Normal aortic root. IVC: Normal size and normal respiratory collapse consistent with normal rightatrial pressure (<5 mmHg). CONCLUSIONS: Moderate concentric left ventricular hypertrophy. Hyperdynamic leftventricular function. No focal wall motion abnormalities. Diastolic dysfunction is present.Ejection Fraction is estimated to be 70 to 75 %. Normal structure of the mitral valve. Trivial regurgitation of the mitralvalve. Normal structure of the aortic valve. Mild aortic valve regurgitation. Normal structure of the tricuspid valve. Severe pulmonary hypertensionbased on right ventricular systolic pressure. Estimated peak RVSP is 61 to 65 mmHg. Mildtricuspid regurgitation. Normal structure of the pulmonic valve. Mild pulmonic regurgitation. Electronically Signed By: Dr Melvin Hunter 04/10/2025 4:52:32 PM CDT us Melvin Hunter MD CV ECHO PROCEDURES Final Resu lt * ECG 12 lead (04/10/2025 10:53 AM CDT) 04/10/2025 10:5 3 AM CDT Narrative [facility] - 04/10/2025 11:56 AM CDT Vent Rate: 60 bpm RR Interval: 996 msec AL Interval: 144 msec QRS Duration: 71 msec QT Interval: 370 msec QTC Interval: 370 msec P-R-T [place]: 39 - -4 - 66 degrees IMPRESSION: SINUS RHYTHM NORMAL ECG Compared to prior EKG, heart rate has increased Electronically Signed By: Jesus Vasquez MD us Silvina Elena MD ECG ORDERABLES Final Res ult [facility] * POCT glucose (04/10/2025 10:03 AM CDT) Glucose, POC 157 70 - 199 mg/dL Blood 04/10/2025 10:0 3 AM CDT 04/10/2025 10:03 AM CDT Silvina Elena MD LAB POCT ORDERABLES - DEV ICE Final Result Performing Organization Address City/[facility]/ZIP Co de Phone Number RASHMI FOX (JAME) 1 [facility] [place] [address] * (ABNORMAL) Urinalysis reflex to microscopic and culture Urine (04/10/2025 9:24 AM CDT) Color, ur Yellow Yellow Clarity, ur Turbid(A) Clear [facility] (JAME) Specific gravity, ur 1.016 1.003 - 1.030 [facility] (JAME) pH, urine 6.5 [facility] (JAME) Comment: Interpretive Data U rine pH is affected by diet, medications, systemic acid-base disturbances, and renal tubular function. pH may affect urinary stone formation. For example, urine pH below 6.0 may help reduce the tendency for calcium phosphate stones and pH greater than 6.0 may reduce the tendency for uric acid stone formation. Source: [facility] [employer] Current Interpretive Data was last revised on 2017 Protein, ur ql 1+(A) Negative [facility] (JAME) Glucose, ur ql Negative Negative [facility] (JAME) Ketones, ur Negative Negative [facility] (JAME) Bilirubin, ur Negative Negative [facility] (JAME) Blood, ur Negative Negative [facility] (JAME) Urobilinogen, ur <2.0 <2.0 mg/dL [facility] (JAME) Nitrite, ur Negative Negative [facility] (JAME) Leukocyte esterase, ur Negative Negative [facility] (JAME) UA reflex comment Reflex to microscopic UA will be performed. [facility] (JAME) Urine 04/10/2025 9:24 AM CDT 04/10/2025 9:47 AM CDT us Silvina Elena MD LAB MICROBIOLOGY - GENERA L ORDERABLES Final Result RASHMI FOX (JAME) 1 [facility] [place] [address] * (ABNORMAL) Urinalysis, microscopic only (04/10/2025 9:24 AM CDT) WBC, ur 0-5 0 - 5 /HPF RBC, ur 0-2 0 - 2 /HPF [facility] (ANNABELLA) Epithelial cells, squamous, ur 1-5 0 - 5 /HPF [facility] ([place]A) Bacteria, ur Trace(A) [facility] (JAME) Mucous, ur Present(A) CERNER A (ANNABELLA) Culture Reflex Comment Reflex conditions for urine culture (WBC >10) not met. RASHMI [facility] (ANNA[place]A) Urine 04/10/2025 9:24 AM CDT 04/10/2025 9:47 AM CDT Silvina Elena MD LAB URINE ORDERABLES Margaret neumann Result RASHMI FOX (ANNABELLA) 1 [facility] [place] [address] * CT Head WO Contrast (04/10/2025 6:25 AM CDT) Anatomical Region Laterality Modality Head and Neck N/A Computed Tomogra phy 04/10/2025 7:18 AM CDT Narrative 04/10/2025 7:32 AM CDT EXAM DESCRIPTION: CT HEAD WO CONTRAST REASON FOR STUDY: Headache, sudden, severe, High blood pressure headache Patient complains of head, neck and chest pain today. TECHNIQUE: Axial images acquired through the brain without intravenous contrast. Sagittal and coronal images reconstructed. Images stored on PACS. Automated exposure control was used as a dose optimization technique for this examination. COMPARISON: 08/22/2024, 04/14/2024 FINDINGS: Beam hardening artifact from the skull base obscures evaluation of the brainstem. Findings made within these confines. SURGICAL/SUPPORT DEVICES: None. BRAIN PARENCHYMA: No acute large vascular territory infarction. No acute intraparenchymal hemorrhage. No mass or significant mass effect. Patchy periventricular hypodensities which are nonspecific but can be seen with mild chronic microvascular ischemic changes. EXTRA-AXIAL SPACES: No hyperdense fluid collections. VENTRICLES: No acute hydrocephalus. BONES/SOFT TISSUES: No significant soft tissue injury. No acute displaced calvarial fracture. PARANASAL SINUSES: Predominately clear. ORBITS: Bilateral lens replacement. MASTOIDS/MIDDLE EAR: Predominately clear. OTHER: Calcified atherosclerotic changes of the intracranial vasculature. IMPRESSION: No acute intracranial abnormality. Chronic findings as above. THIS IS AN ELECTRONICALLY VERIFIED FINAL REPORT 04/10/2025 7:32 AM - Electronically signed by Regis Reyes M.D. NS: NS Report ID: [id number] Reading Location: [id number] Procedure Note Regis Reyes MD - 04/10/2025 EXAM DESCRIPTION: CT HEAD WO CONTRAST REASON FOR STUDY: Headache, sudden, severe, High blood pressure headache Patient complains of head, neck and chest pain today. TECHNIQUE: Axial images acquired through the brain without intravenous contrast. Sagittal and coronal images reconstructed. Images stored onPACS. Automated exposure control was used as a dose optimization technique forthis examination. COMPARISON: 08/22/2024, 04/14/2024 FINDINGS: Beam hardening artifact from the skull base obscures evaluation of the brainstem. Findings made within these confines. SURGICAL/SUPPORT DEVICES: None. BRAIN PARENCHYMA: No acute large vascular territory infarction. Noacute intraparenchymal hemorrhage. No mass or significant mass effect.Patchy periventricular hypodensities which are nonspecific but can be seen withmild chronic microvascular ischemic changes. EXTRA-AXIAL SPACES: No hyperdense fluid collections. VENTRICLES: No acute hydrocephalus. BONES/SOFT TISSUES: No significant soft tissue injury. No acutedisplaced calvarial fracture. PARANASAL SINUSES: Predominately clear. ORBITS: Bilateral lens replacement. MASTOIDS/MIDDLE EAR: Predominately clear. OTHER: Calcified atherosclerotic changes of the intracranialvasculature. IMPRESSION: No acute intracranial abnormality. Chronic findings as above. THIS IS AN ELECTRONICALLY VERIFIED FINAL REPORT 04/10/2025 7:32 AM - Electronically signed by Regis Reyes M.D. NS: NS Report ID: [id number] Reading Location: [id number] Cuco Luke MD IMG CT PROCEDURES Final Resul t * (ABNORMAL) Troponin T high-sensitivity 4-hour (04/10/2025 4:45 AM CDT) Trop T hs 28(H) <=14 ng/L Comment: Interpretive Data For further hscTnT resources including the diagnostic algorithm and an aid in interpretation, copy and paste this link: [email or web address]://[email or web address]/show/hsTrop Current Interpretive Data last revised 2020. Trop T hs delta -4 ng/L [facility] (JAME) Trop T hs interp Insignificant [facility] (JAME) Blood 04/10/2025 4:45 AM CDT 04/10/2025 4:53 AM CDT us Cuco Luke MD LAB BLOOD ORDERABLES Final Re sult RASHMI FOX (ANNABELLA) 1 [facility] Department [place] [address] * (ABNORMAL) Troponin T high-sensitivity 2-hour (04/10/2025 2:53 AM CDT) Trop T hs 32(H) <=14 ng/L Comment: Interpretive Data For further hscTnT resources including the diagnostic algorithm and an aid in interpretation, copy and paste this link: [email or web address]/show/hsTrop Current Interpretive Data last revised 2020. Trop T hs delta 0 ng/L [facility] (JAME) Trop T hs interp Insignificant [facility] (JAME) Blood 04/10/2025 2:53 AM CDT 04/10/2025 3:59 AM CDT Cuco Luke MD LAB BLOOD ORDERABLES Final Re sult [facility] JAME 1 [facility] Department [place] [address] * XR Chest 1 Vw Portable (if patient condition/safety warrant portable) (04/10/2025 12:58 AM CDT) Anatomical Region Laterality Modality Body, Chest N/A Computed Radiogr aphy 04/10/2025 1:06 AM CDT Narrative 04/10/2025 1:08 AM CDT EXAM DESCRIPTION: XR CHEST 1 VIEW REASON FOR STUDY: chest pain C/o medial chest pain tonight. Hx of CHF, DM, HTN. Non smoker TECHNIQUE: Portable upright AP view of the chest. COMPARISON: 10/07/2024 FINDINGS: LUNGS AND PLEURA: No focal opacity, large effusion, or pneumothorax identified. HEART/MEDIASTINUM: Trachea midline. Cardiac silhouette normal in size. Mediastinal contours appear normal. BONES: Unremarkable. CHEST WALL: Unremarkable. UPPER ABDOMEN: Unremarkable. IMPRESSION: No acute abnormality identified. THIS IS AN ELECTRONICALLY VERIFIED FINAL REPORT 04/10/2025 1:08 AM - Electronically signed by Tristan Ryan M.D. AR: CECILIA Report ID: [id number] Reading Location: [place] [id number] Procedure Note Tristan Ryan MD - 04/10/2025 EXAM DESCRIPTION: XR CHEST 1 VIEW REASON FOR STUDY: chest pain C/o medial chest pain tonight. Hx of CHF, DM, HTN. Non smoker TECHNIQUE: Portable upright AP view of the chest. COMPARISON: 10/07/2024 FINDINGS: LUNGS AND PLEURA: No focal opacity, large effusion, or pneumothorax identified. HEART/MEDIASTINUM: Trachea midline. Cardiac silhouette normal in size. Mediastinal contours appear normal. BONES: Unremarkable. CHEST WALL: Unremarkable. UPPER ABDOMEN: Unremarkable. IMPRESSION: No acute abnormality identified. THIS IS AN ELECTRONICALLY VERIFIED FINAL REPORT 04/10/2025 1:08 AM - Electronically signed by Tristan BROOKS: CECILIA Report ID: [id number] Reading Location: [id number] Cuco Luke MD IMG XR PROCEDURES Final Resul t * (ABNORMAL) Troponin T high-sensitivity series (baseline, 2hr, 4hr, 6hr) (04/10/2025 12:44 AM CDT) Trop T hs 32(H) <=14 ng/L Comment: Interpretive Data For further hscTnT resources including the diagnostic algorithm and an aid in interpretation, copy and paste this link: https://nrl.[employer].org/show/hsTrop Current Interpretive Data last revised 2020. Blood 04/10/2025 12:4 4 AM CDT 04/10/2025 12:59 AM CDT Cuco Luke MD LAB BLOOD ORDERABLES Final Re sult RASHMI QOE (ANNABELLA [facility] [place] [address] * eGFR (04/10/2025 12:44 AM CDT) eGFR 60 >=60 mL/min/1. 73 m2 Comment: Interpretive Data Reference Interval Normal >/= 90 mL/min/1.73m2 Mildly decreased* 60 - 89 mL/min/1.73m2 Mildly to moderately decreased 45 - 59 mL/min/1.73m2 Moderately to severely decreased 30 - 44 mL/min/1.73m2 Severely decreased 15 - 29 mL/min/1.73m2 Kidney Failure < 15 mL/min/1.73m2 *Relative to young adult level Estimated glomerular filtration rate is determined by the 2020 CKD-EPI equation recommended by the National Kidney Foundation (A Unifying Approach to GFR Estimation: Recommendations of the NKF-ASK Task Force on Reassessing the Inclusion of Race in Diagnosing Kidney Disease, JASN 2020). The CKD-EPI equation should not be used for patients with unstable renal function and has not been validated in children and those over 70. Current interpretive data was last reviewed 2021. Blood 04/10/2025 12:4 4 AM CDT 04/10/2025 12:59 AM CDT us Cuco Luke MD LAB BLOOD ORDERABLES Final Re sult RASHMI [facility] (AN[place]LLA) 1 [facility] Department [place] [address] * Differential, auto (04/10/2025 12:44 AM CDT) Neutrophil abs 2.99 1.50 - 6.50 K/cumm Imm gran abs 0.02 0.00 - 0.10 K/cumm [facility] ([place]) Lymphocyte abs 1.69 0.80 - 3.30 K/cumm [facility] ([place]) Monocyte abs 0.58 0.20 - 0.80 K/cumm [facility] ([place]) Eosinophil abs 0.05 0.00 - 0.50 K/cumm [facility] ([place]) Basophil abs 0.01 0.00 - 0.10 K/cumm [facility] ([place]) Neutrophil pct 56.0 % [facility] ([place]) Comment: Interpretive Data Percent cell count reference ranges are not reported, since discordance with absolute values may lead to misinterpretation of CBC data. Current Interpretive Data was last revised on 2018. Imm gran pct 0.4 % [facility] ([place]) Comment: Interpretive Data Percent cell count reference ranges are not reported, since discordance with absolute values may lead to misinterpretation of CBC data. Current Interpretive Data was last revised on 2018. Lymphocyte pct 31.6 % [facility] ([place]) Comment: Interpretive Data Percent cell count reference ranges are not reported, since discordance with absolute values may lead to misinterpretation of CBC data. Current Interpretive Data was last revised on 2018. Monocyte pct 10.9 % [facility] ([place]) Comment: Interpretive Data Percent cell count reference ranges are not reported, since discordance with absolute values may lead to misinterpretation of CBC data. Current Interpretive Data was last revised on 2018. Eosinophil pct 0.9 % [facility] (JAME) Comment: Interpretive Data Percent cell count reference ranges are not reported, since discordance with absolute values may lead to misinterpretation of CBC data. Current Interpretive Data was last revised on 2018. Basophil pct 0.2 % [facility] (JAME) Comment: Interpretive Data Percent cell count reference ranges are not reported, since discordance with absolute values may lead to misinterpretation of CBC data. Current Interpretive Data was last revised on 2018. Blood 04/10/2025 12:4 4 AM CDT 04/10/2025 12:59 AM CDT us Cuco Luke MD LAB BLOOD ORDERABLES Final Re sult [facility] (JAME) 1 [facility] [place] [address] * (ABNORMAL) CBC with auto differential (04/10/2025 12:44 AM CDT) WBC 5.34 3.80 - 9.90 K/cumm Hgb 11.5(L) 11.9 - 15.5 g/dL [facility] (JAME) Hct 36.2 35.6 - 45.5 % [facility] (JAME) Plt 206 150 - 400 K/cumm [facility] (JAME) MPV 10.3 9.1 - 12.3 fL [facility] (JAME) RBC 4.16 3.90 - 5.20 M/cumm [facility] (JAME) MCV 87.0 81.3 - 96.4 fL [facility] (JAME) MCH 27.6 27.1 - 33.3 pg [facility] (JAME) MCHC 31.8(L) 32.3 - 35.7 g/dL [facility] (JAME) RDW CV 15.8(H) 11.1 - 14.9 % [facility] (JAME) RDW SD 49.7(H) 35.7 - 48.1 fL [facility] (JAME) NRBC abs 0.00 0.00 - 0.01 K/cumm [facility] (JAME) Blood Venous blood specimen / Unknown 04/10/2025 12:44 AM CDT 04/10/2025 12:59 AM CDT us Cuco Luke MD LAB BLOOD ORDERABLES Final Re sult [facility] (JAME) 1 [facility] [place] [address] * (ABNORMAL) Comprehensive metabolic panel (04/10/2025 12:44 AM CDT) Sodium 138 135 - 145 mmol/L Potassium, pl 4.5 3.3 - 4.9 mmol/L [facility] (JAME) Chloride 101 97 - 110 mmol/L [facility] (JAME) CO2 24 22 - 32 mmol/L [facility] (JAME) Anion gap 13 2 - 15 mmol/L [facility] (JAME) BUN 29(H) 6 - 25 mg/dL [facility] (JAME) Creatinine 0.91 0.60 - 1.10 mg/dL [facility] (JAME) Glucose 159 70 - 199 mg/dL [facility] (JAME) Comment: Interpretive Data Fasting glucose >/= 126 mg/dl is diagnostic for diabetes. Fasting is defined as no caloric intake for at least 8 hours. Fasting glucose between 100 mg/dl to 125 mg/dl is diagnostic of prediabetes. In a patient with classic symptoms of hyperglycemia or hyperglycemic crisis, a random glucose >/= 200 mg/dl is diagnostic for diabetes. In the absence of unequivocal hyperglycemia, results should be confirmed by repeat testing. The classification and Diagnosis of Diabetes Diabetes Care 2021; 46: S19-S40. Current interpretive data was last revised 2022. Calcium 9.5 8.5 - 10.3 mg/dL [facility] (JAME) Bilirubin, total <0.2 0.1 - 1.2 mg/dL [facility] (JAME) Protein, pl 6.9 6.5 - 8.5 g/dL [facility] (JAME) Albumin 3.4(L) 3.5 - 5.0 g/dL [facility] (JAME) Alk phos 104 40 - 130 Units/L [facility] (JAME) ALT <5(L) 7 - 45 Units/L [facility] (JAME) AST 27 10 - 45 Units/L [facility] (JAME) Comment: Hemolysis present. Results may be affected. Slightly Hemolyzed Specimen Blood 04/10/2025 12:4 4 AM CDT 04/10/2025 12:59 AM CDT Cuco Luke MD LAB BLOOD ORDERABLES Final Re sult Performing Organization Address City/[facility] Co de Phone Number RASHMI [facility] (ANNABELLA) [address] [place] [address] of Laboratories [place] [phone] * ECG 12 lead (04/10/2025 12:32 AM CDT) 04/10/2025 12:3 2 AM CDT Narrative [facility] - 04/10/2025 8:35 AM CDT Vent Rate: 41 bpm RR Interval: 1434 msec AL Interval: 144 msec QRS Duration: 72 msec QT Interval: 407 msec QTC Interval: 345 msec P-R-T [place]: 41 - -4 - 52 degrees IMPRESSION: SINUS BRADYCARDIA WITH SINUS ARRHYTHMIA POSSIBLE LEFT ATRIAL ENLARGEMENT [-0.1mV P WAVE IN V1/V2] BORDERLINE ECG NO CHANGE FROM PREVIOUS TRACING NOTED Electronically Signed By: Jesus Vasquez MD Cuco Luke MD ECG ORDERABLES Final Result Performing Organization Address [facility] Co de Phone Number [facility] [place] [facility] * (ABNORMAL) Hemoglobin A1c (01/21/2025 3:11 PM CDT) Hgb A1C 6.2(H) 4.0 - 5.6 % Estimated Average Glucose 131 mg/dL [facility] (JAME) Comment: The ADA recommends reporting an estimated Average Glucose (eAG) with all Hemoglobin A1c results using the equation derived from a study of 507 normal and diabetic adults. Minority populations were underrepresented and children were not included. (Diabetes Care 31:4872-4076, 2008). The eAG is not equivalent to a fasting glucose. Blood 01/21/2025 3:11 PM CDT 01/21/2025 3:15 PM CDT Narrative RASHMI FOX (JAME) - 01/21/2025 4:11 PM CDT FASTING 1-2 WEEKS BEFORE JANUARY 2025 APPT us Fede HU LAB BLOOD ORDERABLES Fi nal Result SEJALBRITTANY FOX (JAME) 1 [facility] [place] [address] * Lipid panel (01/21/2025 3:11 PM CDT) Cholesterol 187 30 - 199 mg/dL Comment: Interpretive Data Ages < or = 19 years Acceptable: <170 mg/dL Borderline high: 170-199 mg/dL High: >or= 200 mg/dL Ages > or = 20 years Desirable: <200 mg/dL Borderline high: 200-239 mg/dL High: >or= 240 mg/dL Literature References: 1. Expert Panel on Integrated Guidelines for Cardiovascular Health and Risk Reduction in Children and Adolescents. Pediatrics 2011;128:S213 2. NCEP Expert Panel. Circulation 2004;110:227 Current Interpretive Data was last revised on 2018. Triglycerides 71 <=149 mg/dL RASHMI FOX (JAME) Comment: Interpretive Data Ages < or = 9 years Acceptable: <75 mg/dL Borderline high: 75-99 mg/dL High: >or= 100 mg/dL Ages 10 to 20 years Acceptable: <90 mg/dL Borderline high: 90-129 mg/dL High: >or= 130 mg/dL Ages > or = 20 years Desirable: <150 mg/dL Borderline high: 150-199 mg/dL High: 200-499 mg/dL Very high: >or= 499 mg/dL Literature References: 1. Expert Panel on Integrated Guidelines for Cardiovascular Health and Risk Reduction in Children and Adolescents. Pediatrics 2011;128:S213 2. NCEP Expert Panel. Circulation 2004;110:227 Current Interpretive Data was last revised on 2018. HDL 89 >=40 mg/dL RASHMI Trujillo (JAME) Comment: Interpretive Data Ages < or = 19 years Acceptable: >45 mg/dL Borderline low: 40-45 mg/dL Low: <40 mg/dL Ages > or = 20 years Desirable: >or= 60 mg/dL Low: <40 mg/dL Literature References: 1. Expert Panel on Integrated Guidelines for Cardiovascular Health and Risk Reduction in Children and Adolescents. Pediatrics 2011;128:S213 2. NCEP Expert Panel. Circulation 2004;110:227 Current Interpretive Data was last revised on 2018. LDL, calculated 85 <=129 mg/dL RASHMI FOX (JAME) Comment: Interpretive Data Ages < or = 19 years Acceptable: <110 mg/dL Borderline high: 110-129 mg/dL High: >or= 130 mg/dL Ages > or = 20 years Optimal: <100 mg/dL Near optimal: 100-129 mg/dL Borderline high: 130-159 mg/dL High: >160 mg/dL Calculated using the Micheal LDL-C estimating equation. This equation was implemented on 2024. Prior to this date LDL-C was estimated using the Friedewald equation. Literature References: 1. Expert Panel on Integrated Guidelines for Cardiovascular Health and Risk Reduction in Children and Adolescents. Pediatrics 2011;128:S213 2. NCEP Expert Panel. Circulation 2004;110:227 3. Micheal Simental et al. NOHEMY Cardiol. 2020 March 05;5(5):540-548. doi: [email or web address] Current Interpretive Data was last revised on 2024. Non-HDL Cholesterol 98 mg/dL RASHMI FOX (JAME) Comment: Interpretive Data Ages < or = 19 years Acceptable: <120 mg/dL Borderline high: 120-144 mg/dL High: >145 mg/dL Ages > or = 20 years When triglycerides are >200 mg/dL, Non-HDL cholesterol is a secondary target of therapy with treatment goals that are 30 mg/dL greater than the LDL cholesterol target. Literature References: 1. Expert Panel on Integrated Guidelines for Cardiovascular Health and Risk Reduction in Children and Adolescents. Pediatrics 2011;128:S213 2. NCEP Expert Panel. Circulation 2004;110:227 Current Interpretive Data was last revised on 2018. Chol/HDL ratio 2 VIKA FOX (JAME) Blood 01/21/2025 3:11 PM CDT 01/21/2025 3:15 PM CDT Narrative RASHMI RUDDY (JAME) - 01/21/2025 4:06 PM CDT FASTING 1-2 WEEKS BEFORE JANUARY 2025 APPT Fede HU LAB BLOOD ORDERABLES Fi nal Result Performing Organization Address City/[facility]/ZIP Co de Phone Number RASHMI FOX (JAME) 1 [facility] [place] [address] * (ABNORMAL) Albumin Creatinine Ratio, Urine (06/11/2024 3:25 PM CDT) Pathologist [facility] Albumin Ur 577.8 mg/L Comment: Interpretive Data No reference range established. Current interpretive data was last revised 2019. Testing performed by: [facility], [address] [place] [address]., [id number] Creatinine Ur 117.5 mg/dL RASHMI FOX (JAME) Comment: Interpretive Data No reference range established. Current interpretive data was last revised 2019. Testing performed by: [facility], [address] [place] [address]., [id number] Albumin Creatinine Ratio, Ur 492(H) 1 - 29 mg/g RASHMI FOX (JAME) Comment:Testing performed by : [facility], [address] [place] [address]., [id number] Urine 06/11/2024 3:25 PM CDT 06/12/2024 9:00 AM CDT us Fede HU LAB URINE ORDERABLES Fi nal Result Performing Organization Address [facility]/ZIP Co de Phone Number RASHMI FOX (JAME) 1 [facility] [employer] [place] [address] * Diabetic Eye Exam (06/25/2023) us Generic External Data Provider HEALTH MAINTENANC E Final Result * FIT occult blood, fecal (09/02/2020 9:16 AM CDT) FIT occult blood, fecal Negative Negative RASHMI FOX (JAME) Comment: Negative result. This test will not detect upper gastrointestinal bleeding; the HemoQuant test (0362)should be ordered if clinically indicated. Test Performed by: [address] [address] Contact Center Specialist: Jake Mcgarry M.D. Ph.D.; CLIA# [id number] Stool 09/02/2020 9:16 AM CDT 09/02/2020 1:30 PM CDT us George Young MD LAB BODY FLUIDS AND STOOLS ORDERABLES Final Result RASHMI FOX (JAME) 1 [facility] [place] [address] * Screening Mammogram Bilateral W Mane (07/27/2020 10:50 AM CDT) Anatomical Region Laterality Modality Breast Bilateral Mammography 07/27/2020 3:02 PM CDT Impressions 07/27/2020 3:06 PM CDT There is no mammographic evidence of malignancy. A 1 year screening mammogram is recommended. BI-RADS: 1 - Negative. The patient will be entered into a reminder system with a target due date of 1 year for her next mammogram. Electronically signed by: Maximiliano Reynoso M.D. Narrative 07/27/2020 3:06 PM CDT EXAMINATION: SCREENING MAMMOGRAM BILATERAL W MANE ORDERING HEALTHCARE PROVIDER: GEORGE YOUNG HISTORY: Routine screening mammography. COMPARISON: 06/30/2019, 06/25/2018, 01/08/2017, 11/16/2015. TECHNIQUE: CC and MLO views of the bilateral breasts were obtained with digital technique using breast tomosynthesis with C view. Computer aided detection was utilized. FINDINGS: DENSITY: The tissue of the bilateral breasts is heterogeneously dense, which may obscure small masses. BREASTS: There are no suspicious masses, suspicious calcifications, or other suspicious findings in either breast. There has been no suspicious interval change. us George Young MD IMG MAMMO PROCEDURE S Final Result * DIABETES FOOT EXAM (01/11/2019) Diabetic Foot Exam Normal Historical Provider HEALTH MAINTENANCE Final Result * COLONOSCOPY (06/25/2007) Colonoscopy Abnormal Comment:Diverticulosis and h emorrhoidal disease Historical Provider HEALTH MAINTENANCE Final Result * DEXA SCAN (03/09/2005) DEXA Scan Normal Historical Provider HEALTH MAINTENANCE Final Result from Last 3 Months or Most Recently Relevant to Health Maintenance Insurance MEDICARE [facility] Address: [facility] [address] [place] [address] COMMERCIAL GENERIC MEDICARE TEXARKANA SLOVENIAN Advance Directives For more information, please contact: [phone] * Full Code (Latest Code Status on File) Date Activated Date Inactivated Comments 05/06/2025 11:11 PM 05/09/2025 7:00 PM * LIMITED - No CPR Date Activated Date Inactivated Comments 05/06/2025 5:51 PM 05/06/2025 11:11 PM Question Answer Comments Provide aggressive medical m anagement before a full cardiopulmonary arrest occurs. Use antibiotics, IV Fluids, and medical treatment unless specifically selected below: No intubation * Full Code Date Activated Date Inactivated Comments 04/10/2025 4:10 PM 04/11/2025 6:15 PM * LIMITED - No CPR Date Activated Date Inactivated Comments 08/22/2024 3:28 PM 08/26/2024 8:18 PM Question Answer Comments Provide aggressive medical m anagement before a full cardiopulmonary arrest occurs. Use antibiotics, IV Fluids, and medical treatment unless specifically selected below: No intubation * Full Code Date Activated Date Inactivated Comments 08/22/2024 4:28 AM 08/22/2024 3:28 PM Healthcare Agents on File Name Relationship Healthcare Agent Relationship Communication Red Kamille Witt[place]unde[place] Spouse First Altern ate Health Care Agent [email or web address] [employer]hesive Care Teams Shirt Folder Relationship Specialty Start Date End Date Fede Mills PA [address] [facility] [address] [place] [address] PCP - General Internal Medicine 07/04/22 Lynda Silvestre MD [address] [place] [address] Referring Physician Ophthalmology 11/13/22 Victor Manuel Real MD [address] [place] [address] [address] [place] [address] Consulting Physician Neurology 01/18/24 Nazario Osman DPM [address] [place] [address] Consulting Physician Orthotics 01/18/24 Concha Prakash, LAMINE [address] [place] [address] [address] [place] [address] Tank Storage Supervisor 05/06/25
--- OUTSIDE RECORDS SUMMARY | 2025-05-13 15:09 | XMS_ITS | Encounter Summary ---
Author Organization [facility] Address [address] [place] [address] Phone Care Team Providers Care Disability Insurance Claim Examiner Name Role Phone Otf Young MD Primary Care Provi patricia Fede Mills Primary Care Provider Lynda Silvestre MD Unavailable [phone] Victor Manuel Real MD Unavailable [phone] Nazario OsmanM Unavailable [phone] Concha Prakash RN Unavailable [phone] Concha Prakash RN Unavailable [phone] Encounter Details Date Type Department Care Team (Late st Contact Info) Description 02/04/2018 Orders Only [facility] ProviderCarole MD [address] [place] [address] Social History Tobacco Use Types Packs/Day Years Used Date Smoking Tobacco: Never Smokeless Tobacco: Never Alcohol Use Standard Drinks/Week Comments No 0 (1 standard drink = 0.6 oz pur e alcohol) Comments No Sex and Gender Information Value Date Recorded Sex Assigned at Not on file 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 us Historical Provider LAB BLOOD ORDERABLES Margaret l Result documented in this encounter Visit Diagnoses Not on filedocumented in this encounter Additional Health Concerns Infection Onset Date Last Indicated Resolved Time COVID: Suspected 07/19/2024 07/19/2024 07/19/2024 7:48 AM CDT documented as of this encounter Care Teams Disability Insurance Claim Examiner Relationship Specialty Start Date End Date Otf Young MD PCP - General 02/02/17 07/03/22 Fede Mills PA [address] [facility] [address] [place] [address] PCP - General Internal Medicine 07/04/22 Lynda Silvestre MD [address] [place] [address] Referring Physician Ophthalmology 11/13/22 Victor Manuel Real MD [address] [facility] [address] [place] [address] Consulting Physician Neurology 01/18/24 Nazario Osman DPM [address] [place] [address] Consulting Physician Orthotics 01/18/24 Concha Prakash, LAMINE [address] [place] [address] [address] [place] [address] Food Demonstrator 04/13/25 04/29/25 Concha Prakash, LAMINE [address] [facility] [address] [place] [address] Food Demonstrator 05/06/25 documented as of this encounter
--- OUTSIDE RECORDS SUMMARY | 2025-05-13 15:09 | XMS_ITS | Encounter Summary ---
Author Organization [facility] Healthcare Address [address] [place] [address] Care Team Providers Care Pan Pusher Name Role Phone Fede Mills Primary Care Provider Lynda Silvestre MD Unavailable [phone] Victor Manuel Real MD Unavailable [phone] Nazario Osman DPM Unavailable [phone] Concha Prakash RN Unavailable [phone] Concha Prakash RN Unavailable [phone] Reason for Visit * Reason Onset Date Comments Medical Question/Miscellaneous 04/20/2025 Encounter Details Date Type Department Care Team (Late st Contact Info) Description 04/20/2025 Telephone [facility] Medical Group Primary Care at [address] [place] [address] Fede Mills PA [address] [place] [address] [address] [place] [address] Medical Question/Miscellaneous Social History Tobacco Use Types Packs/Day Years Used Date Smoking Tobacco: Never Smokeless Tobacco: Never Alcohol Use Standard Drinks/Week Comments No 0 (1 standard drink = 0.6 oz pur e alcohol) [facility] Utilities Answer Date Recorded In the past 12 months has th e electric, gas, oil, or water [employer] threatened to shut off services in your home? No 04/13/2025 Social Connection and Isolation Panel [NHANES] A nswer Date Recorded In a typical week, how many times do you talk on the phone with family, friends, or neighbors? Twice a week 04/13/2025 How often do you get together with friends or re latives? Twice a week 04/13/2025 How often do you attend amish or mu-ism serv ices? Never 04/13/2025 Do you belong to any clubs o r organizations such as amish groups, unions, fraternal or athletic groups, or school groups? No 04/13/2025 How often do you attend meet ings of the clubs or organizations you belong to? Never 04/13/2025 Are you , , di vorced, , never , or living with a partner? 04/13/2025 AUDIT-C Answer Date Recorded Q1: How often [...] food, housing, medical care, and heating? Not very hard 04/13/2025 PHQ-2 Answer Date Recorded PHQ-2 Total Score (If total score is 3 or more points, staff should administer the PHQ-9) 0 04/21/2025 Hunger Vital Sign Answer Date Recorded Within the past 12 months, y ou worried that your food would run out before you got the money to buy more. Never true 04/13/20 25 Within the past 12 months, t he food you bought just didn't last and you didn't have money to get more. Never true 04/13/2025 PRAPARE - Transportation Answer Date Re corded In the past 12 months, has l ack of transportation kept you from medical appointments or from getting medications? No 07/2025 In the past 12 months, has l ack of transportation kept you from meetings, work, or from getting things needed for daily living? No 04/13/2025 Housing Stability Vital Sign Answer Ethan e [...] place to sleep or slept in a alf (including now)? No 11/23/2023 Housing Stability Vital Sign Answer Ethan e Recorded In the last 12 months, was t here a time when you were not able to pay the mortgage or rent on time? No 04/13/2025 In the past 12 months, how m any times have you moved where you were living? 0 04/13/2025 At any time in the past 12 m [facility], were you homeless or living in a alf (including now)? No 04/13/2025 Personal Safety Answer Date Recorded Have you ever been in or are you currently in a harmful physical or emotional relationship or is someone making you feel afraid or unsafe? Denies 04/10/2025 Education Answer Date Recorded What is the highest level of school you have completed or the highest degree you have received? 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 Never 04/21/2025 3:15 PM Joseph Murdock MA Q2: How many drinks containing alcohol do you have on a typical day when you are drinking? Patient does not drink 04/21/2025 3:15 PM Joseph Murdock MA Q3: How often do you have six or more drinks on one occasion? Never 04/21/2025 3:15 PM Joseph Murdock MA documented as of this encounter Miscellaneous Notes * Telephone Encounter - Joseph Becerra MA - 04/20/2025 10:35 AM CDT Sara/[facility] aware * Telephone Encounter - Fede Mills PA - 04/20/2025 10:28 AM CDT She does tend to run slower. They can change the parameter to let me know if it goes below 50 * Telephone Encounter - Daniela Michel MA - 04/20/2025 8:30 AM CDT Medical Question/Miscellaneous Caller???s Concern: Sara from [facility] saw the patient this morning and her heart rate was 56. says that is normal for the patient. Sara says it is their protocol to make the doctor aware if it is lower than 60. Since it is normal for the patient to have a lower than average heart rate, if the doctor would send her over an order being specific about what heart rate they would like notified about she said that would be great. Then she wouldn't have to call every time. Please advise and thank you so much. Does message need to be routed? Yes-Action Needed documented in this encounter Plan of Treatment Not on file documented as of this encounter Visit Diagnoses Not on filedocumented in this encounter Care Teams Pan Pusher Relationship Specialty Start Date End Date Fede Mills PA [address] [facility] [address] [place] [address] PCP - General Internal Medicine 07/04/22 Lynda Silvestre MD [address] [place] [address] Referring Physician Ophthalmology 11/13/22 Victor Manuel Real MD [address] [place] [address] [address] [place] [address] Consulting Physician Neurology 01/18/24 Nazario Osman DPM [address] [place] [address] Consulting Physician Orthotics 01/18/24 Concha Prakash RN [address] [place] [address] [address] [place] [address] Brim Welt Sewing Machine Operator 04/13/25 04/29/25 Concha Prakash RN [address] [place] [address] [address] [place] [address] Brim Welt Sewing Machine Operator 05/06/25 documented as of this encounter
--- OUTSIDE RECORDS SUMMARY | 2025-05-13 15:09 | XMS_ITS | Referral Summary ---
Author Organization [facility] Address [address] [place] [address] Care Team Providers Care Sewer Contractor Name Role Phone Fede Mills Primary Care Provider Lynda Silvestre MD Unavailable [phone] Victor Manuel Real MD Unavailable [phone] Nazario Osman DPM Unavailable [phone] Concha Prakash RN Unavailable Encounters Date Type Department Care Team Description 05/12/2025 Telephone [facility] Specialist at [address] [place] [address] Omar Briceño NP 05/09/2025 2:36 PM CDT - 05/09/2025 11:59 PM CDT Hospital Encounter [facility] Discharge Disposition: Discharge to home or self care 05/06/2025 12:02 PM CDT - 05/09/2025 2:59 PM CDT Hospital Encounter [facility] Acute Medicine [address] [place] [address] [id number] Angelica Eagle MD Kheirkhahan, Nazanin, MD Weakness (Primary Dx) Discharge Disposition: Discharge to SNF 05/06/2025 Telephone [facility] Medical [facility] Primary Care at [address] [address] Fede Mills PA Concerns for sudden weakness this morning 04/21/2025 3:00 PM CDT Office Visit [facility] Medical [facility] Primary Care at [address] [address] Fede Mills PA Hospital discharge follow-up (Primary Dx); Type 2 diabetes mellitus with microalbuminuria, without long-term current use of insulin (HCC); Hypertension, essential; Stage 3a chronic kidney disease (HCC); Acute chest pain; Hypertensive urgency; Intractable headache, unspecified chronicity pattern, unspecified headache type; Hyperkalemia; Acquired hypothyroidism; Wheelchair dependent; Parkinson's disease with dyskinesia, with fluctuations (HCC) 04/20/2025 Telephone [facility] Medical [facility] Primary Care at [address] [address] Fede Mills PA Medical Question/Miscellaneo us 04/14/2025 Telephone [facility] Medical [facility] Primary Care at [address] [address] Fede Mills PA Additional Services Or Orders 04/14/2025 10:25 AM CDT Lab [address] [address] Hyperkalemia 04/12/[address] [place] [address] Lupe Oliveira, LAMINE [facility] 04/10/2025 3:25 AM CDT - 04/11/2025 2:10 PM CDT Hospital Encounter [facility] [address] [place] [address] [facility]co Luke MD Holland, Kristy Lynn, MD Kheirkhahan, Nazanin, MD Acute chest pain (Primary Dx); Hypertensive urgency; Bradycardia; Hyperkalemia; Parkinson's disease with dyskinesia, with fluctuations (HCC) Discharge Disposition: Discharge to home or self care from Last 3 Months Allergies Active Allergy Reactions Criticality Noted Date [...] 11/22/2023 Assessment & Plan (12/27/2023 1:32 PM CIGAR TOBACCO PROCESSING SUPERVISOR): -new diagnosis -reported in bilateral lower extremities [...] 07/04/2022 Assessment & Plan (12/27/2023 1:35 PM CIGAR TOBACCO PROCESSING SUPERVISOR): -chronic -previously taking 25 mcg of levothyroxine -discontinued during hospitalization from 11/22/2023-11/25/2023 detention (current) use of aspirin 01/10/2022 Generalized edema 11/02/2021 Assessment & Plan (11/02/2021 10:33 AM CIGAR TOBACCO PROCESSING SUPERVISOR): Check tsh Cbc bnp; for eval Try restrict salt Acute bilateral low back pain without sciatica 1 Assessment & Plan (11/02/2021 10:39 AM CIGAR TOBACCO PROCESSING SUPERVISOR): Trial pt to see if can help [...] 06/03/2020 Assessment & Plan (11/02/2021 10:34 AM CIGAR TOBACCO PROCESSING SUPERVISOR): Recheck to confirm not worseining prior xstool hem neg Assessment & Plan (06/16/2021 10:38 AM CDT): Iron up to iron sat up to 16 and hgb to 11.5 and geteting to nl and cont iron and check Assessment & Plan (01/10/2021 11:25 AM CIGAR TOBACCO PROCESSING SUPERVISOR): blod cnts p a little and I cj stable stay on iron as on for nwo and seclf joãoweck Assessment & Plan (09/07/2020 1:28 PM CIGAR TOBACCO PROCESSING SUPERVISOR): Iron stil low and takes mvi with [...] drugs Assessment & Plan (01/01/2025 10:10 AM CIGAR TOBACCO PROCESSING SUPERVISOR): Chemistry Lab Results Component Value Date SODIUM [...] needed. Assessment & Plan (11/02/2021 10:31 AM CIGAR TOBACCO PROCESSING SUPERVISOR): Creat sctable and due for 24 hr [...] kidneys. Assessment & Plan (01/06/2019 5:28 PM CIGAR TOBACCO PROCESSING SUPERVISOR): Worsening some. CC down to 46 from [...] diet Assessment & Plan (01/10/2021 11:27 AM CIGAR TOBACCO PROCESSING SUPERVISOR): Your cholesterol in the form of ldl [...] diet Assessment & Plan (09/15/2019 11:25 AM CIGAR TOBACCO PROCESSING SUPERVISOR): ldl at 58 and great no chanes [...] 08/19/2018 Assessment & Plan (11/12/2022 3:05 PM CIGAR TOBACCO PROCESSING SUPERVISOR): The patient was counseled on a heart-healthy, [...] care. Assessment & Plan (11/02/2021 10:31 AM CIGAR TOBACCO PROCESSING SUPERVISOR): a1c at 5.8 and near nl Diabetes [...] months Assessment & Plan (01/10/2021 11:22 AM CIGAR TOBACCO PROCESSING SUPERVISOR): Cr clear up to 50 from 35. [...] kidneys. Assessment & Plan (09/07/2020 1:27 PM CIGAR TOBACCO PROCESSING SUPERVISOR): A`1c nl at 5.6 and will stopthe [...] care. Assessment & Plan (09/15/2019 11:24 AM CIGAR TOBACCO PROCESSING SUPERVISOR): screeens for renal funcniton stabl eto better [...] dec Assessment & Plan (01/06/2019 5:26 PM CIGAR TOBACCO PROCESSING SUPERVISOR): The patient was counseled on a heart-healthy, [...] hypertension. Assessment & Plan (01/01/2025 10:50 AM CIGAR TOBACCO PROCESSING SUPERVISOR): BP Readings from Last 3 Encounters: 01/01/25 [...] hypertension. Assessment & Plan (12/27/2023 1:31 PM CIGAR TOBACCO PROCESSING SUPERVISOR): -chronic, suboptimally controlled -currently takes Coreg daily [...] bp touch high and will recheck at ome and baring in. And bring in monitor [...] controlled. Assessment & Plan (01/10/2021 11:21 AM CIGAR TOBACCO PROCESSING SUPERVISOR): bp good and a1c up to 6.1 [...] hypertension. Assessment & Plan (09/15/2019 11:23 AM CIGAR TOBACCO PROCESSING SUPERVISOR): The bp good and th3 a1c neqr [...] with these cutting ht aldactone back pierre and alexis see Some bp come upHypertension, [...] bp. Assessment & Plan (01/06/2019 5:27 PM CIGAR TOBACCO PROCESSING SUPERVISOR): Recommend DASH diet, heart-healthy lifestyle, exercise. Discussed [...] hypertension. Assessment & Plan (10/18/2017 10:30 AM CIGAR TOBACCO PROCESSING SUPERVISOR): bp good and no chagesHypertension, Medical treament [...] care. Assessment & Plan (01/01/2025 10:03 AM CIGAR TOBACCO PROCESSING SUPERVISOR): Chronic, stable, and at goal of A1c [...] diagnosis of diabetes in children. According to [place] Diabetes Association (ADA) guidelines, hemoglobin A1c <7.0% [...] diagnosis of diabetes in children. According to [place] Diabetes Association (ADA) guidelines, hemoglobin A1c <7.0% [...] pyr'ly Assessment & Plan (01/10/2021 11:24 AM CIGAR TOBACCO PROCESSING SUPERVISOR): Urine protetin cme up to 192 and up. On meds to help and cotn as on for now and check Assessment & Plan (06/03/2020 3:42 PM CDT): Dropping back on honey to 2.5 Given renal and bp and k some high will check in futureif ka goes up any alexis need to reduce to stop the alldactone Assessment & Plan (09/15/2019 11:24 AM CIGAR TOBACCO PROCESSING SUPERVISOR): lurine protein down to 4.7 and Very [...] care. Assessment & Plan (10/18/2017 10:31 AM CIGAR TOBACCO PROCESSING SUPERVISOR): a1c at 6.2 and 6.5 diabetes. So [...] 01/21/2025 Assessment & Plan (01/01/2025 10:01 AM CIGAR TOBACCO PROCESSING SUPERVISOR): Chronic problem, exacerbated at this time. Point of care urinalysis today: Repeat urine culture Initiate antibiotics at this time based on most recent culture data: Rx ciprofloxacin 500 mg twice a day for 5 days Body mass index (BMI) of 23. 0 to 23.9 in adult 12/27/2023 06/11/2024 Assessment & Plan (12/27/2023 1:39 PM CIGAR TOBACCO PROCESSING SUPERVISOR): Wt Readings from Last 3 Encounters: 11/22/23 [...] hypertension. Assessment & Plan (11/02/2021 10:32 AM CIGAR TOBACCO PROCESSING SUPERVISOR): Bp; stable anld keep meds sameHypertension, Medical [...] the goal bp. BMI 27.0-27.9,adult 01/10/2021 08/09/20 Assessment & Plan (02/27/2023 8:05 AM CDT): Weight stable Continue healthy diabetic diet Assessment & Plan (01/10/2021 11:26 AM CIGAR TOBACCO PROCESSING SUPERVISOR): Work to stoppoing wt gain Benign hypertensive kidney d isease with chronic kidney disease stage I through stage IV, or unspecified(403.10) 06/03/2020 03/06/2022 Assessment & Plan (11/02/2021 10:33 AM CIGAR TOBACCO PROCESSING SUPERVISOR): Renal screen stable nad bp good and [...] bp. Assessment & Plan (01/10/2021 11:23 AM CIGAR TOBACCO PROCESSING SUPERVISOR): bp good and renal better no chages in meds Assessment & Plan (09/07/2020 1:27 PM CIGAR TOBACCO PROCESSING SUPERVISOR): bp good and will gfr lower try [...] 09/15/201907/04 Assessment & Plan (09/15/2019 11:28 AM CIGAR TOBACCO PROCESSING SUPERVISOR): Given age and last nl without need [...] 021 Assessment & Plan (09/07/2020 1:28 PM CIGAR TOBACCO PROCESSING SUPERVISOR): Work to keepst able Assessment & Plan [...] 11/29/201708/05 Assessment & Plan (12/04/2017 4:55 PM CIGAR TOBACCO PROCESSING SUPERVISOR): If bleeds then apply direct p[ressure and will stop. bandaid after dial soap nguyen twice a day. Antibiotic oinment on and bakndaid to prtect tentus 7 yrs ago and up to date. No repeat needed for this low risk wound. Hyperlipidemia 09/22/2016 08/19/2018 Overview (02/09/2017): HYPERLIPIDEMIA NEC/NOS Assessment & Plan (10/18/2017 10:31 AM CIGAR TOBACCO PROCESSING SUPERVISOR): ldl at 59 and great and no [...] along with whole milk products And limited. Immunizations Immunization Administration Dates Next Due Influenza, [...] 02/28/2021,12/01/2010 ZOSTER LIVE 06/17/2008 ZOSTER Recombinant 12/02/2019,09/29/2019 Social History Tobacco Use Types Packs/Day Years Used Date Smoking Tobacco: Never Smokeless Tobacco: Never Tobacco Cessation:Counseling Given: Not Answered Alcohol Use Standard Drinks/Week Comments No 0 (1 standard drink = 0.6 oz pur e alcohol) [facility] [employer] Answer Date Recorded In the past 12 months has light, [employer], or water [employer] threatened to shut off services in your [...] 05/07/2025 How often do you attend chur or hindu services? Never 05/07/2025 Do you belong to any clubs o r organizations such as roman catholic groups, unions, fraternal or athletic groups, or [...] place to sleep or slept in a correction (including now)? No 11/23/2023 Housing Stability Vital Sign Answer Ethan e Recorded In the last 12 months, was t here a time when you were not able to pay the mortgage or rent on time? No 05/07/2025 In the past 12 months, how m any times have you moved where you were living? 0 05/07/2025 At any time in the past 12 m [facility], were you homeless or living in a correction (including now)? No 05/07/2025 Personal Safety Answer [...] on file Legal Sex Female 11:52 PM CIGAR TOBACCO PROCESSING SUPERVISOR Gender Identity Not on file Sexual Orientation Not on file Last Filed Vital Signs Vital Sign Reading [...] 05/06/2025 5:11 PM CDT Plan of Treatment Not on file Procedures Procedure Name Priority Date/Time Associated Diagnosis [...] LAB BLOOD ORDERABLES Margaret l Result RASHMI FOX ([place]) [address] [place] [address] * (ABNORMAL) Troponin T high-sensitivity 6-hour (05/09/2025 3:53 AM CDT) Trop T hs 42(H) <=14 ng/L Comment: Interpretive Data For further hscTnT resources including the diagnostic algorithm and an aid in interpretation, copy and paste this link: https://nrl.[employer]cat[employer].org/show/hsTrop Current Interpretive Data last revised 2020. Trop T hs delta See Comment ng/L CE STEVEN FOX ([place]) Comment:Inappropriate collec tion time to report a delta. Trop T hs pct delta See Comment % RASHMI FOX ([place]) Comment:Inappropriate collec tion time to report a delta. Trop T hs interp See Comment C ELA FOX ([place]) Comment:Inappropriate collec tion time to report a delta. Blood 05/09/2025 3:53 AM CDT 05/09/2025 4:34 AM CDT us Antwan Kan MD LAB BLOOD ORDERABLES Final Resu lt Performing Organization Address [facility]/ZIP Co de Phone Number RASHMI FOX ([place]) [address] [place] [address] * (ABNORMAL) Troponin T high-sensitivity 4-hour (05/09/2025 3:53 AM CDT) Trop T hs 41(H) <=14 ng/L Comment: Interpretive Data For further hscTnT resources including the diagnostic algorithm and an aid in interpretation, copy and paste this link: https://nrl.[employer].org/show/hsTrop Current Interpretive Data last revised 2020. Trop T hs delta See Comment ng/L CE STEVEN FOX ([place]) Comment:Inappropriate collec tion time to report a delta. Trop T hs pct delta See Comment % RASHMI FOX ([place]) Comment:Inappropriate collec tion time to report a delta. Trop T hs interp See Comment C ELA RUDDY ([place]) Comment:Inappropriate collec tion time to report a delta. Blood 05/09/2025 3:53 AM CDT 05/09/2025 4:34 AM CDT Antwan Kan MD LAB BLOOD ORDERABLES Final Resu lt RASHMI FOX ([place]) 1 [facility] [address] * (ABNORMAL) eGFR (05/09/2025 3:53 AM CDT) [...] ORDERABLES Final Resu lt Performing Organization Address City/[facility]/ZIP Co de Phone Number RASHMI FOX ([place]) 1 [facility] [address] * Differential, auto (05/09/2025 3:53 AM CDT) [...] revised on 2018. Monocyte pct 9.8 % [facility] ([place]) Comment: Interpretive Data [...] Final Resu lt [facility] ([place]) 1 [facility] [place] [address] * (ABNORMAL) CBC with auto differential (05/09/2025 3:53 AM CDT) WBC 6.43 3.80 - 9.90 K/cumm Hgb 11.0(L) 11.9 - 15.5 g/dL [facility] ([place]) Hct 34.1(L) 35.6 - 45.5 % [facility] ([place]) Plt 243 150 - 400 K/cumm [facility] ([place]) MPV 9.9 9.1 - 12.3 fL CERNER [...] NRBC abs 0.02(H) 0.00 - 0.01 K/cumm [facility] ([place]) Blood 05/09/2025 3:53 AM CDT 05/09/2025 4:34 AM CDT us Antwan Kan MD LAB BLOOD ORDERABLES Final Resu lt [facility] ([place]) 1 [facility] [place] [address] * (ABNORMAL) Comprehensive metabolic panel (05/09/2025 3:53 AM CDT) Sodium 137 135 - 145 mmol/L Potassium, pl 5.2(H) 3.3 - 4.9 mmol/L [facility] ([place]) Chloride 103 97 - 110 mmol/L [facility] ([place]) CO2 24 22 - 32 mmol/L [facility] ([place]) Anion gap 10 2 - 15 mmol/L [facility] ([place]) BUN 46(H) 6 - 25 mg/dL [facility] ([place]) Creatinine 1.10 0.60 - 1.10 [...] ORDERABLES Final Resu lt Performing Organization Address City/[facility]/ZIP Co de Phone Number RASHMI FOX ([place]) 1 [facility] [place] [address] * (ABNORMAL) Troponin T high-sensitivity 2-hour (05/08/2025 10:28 PM CDT) Trop T hs 45(H) <=14 ng/L Comment: Interpretive Data For further hscTnT resources including the diagnostic algorithm and an aid in interpretation, copy and paste this link: https://nrl.testcatalog.org/show/hsTrop Current Interpretive Data last revised 2020. Trop T hs delta -4 ng/L [facility] ([place]) Trop T hs interp Insignificant [facility] ([place]) Blood 05/08/2025 10:2 8 PM CDT 05/08/2025 10:30 PM CDT us Antwan Kan MD LAB BLOOD ORDERABLES Final Resu lt Performing Organization Address [facility] Co de Phone Number RASHMI FOX ([place]) 1 [facility] [place] [address] * ECG 12 lead (05/08/2025 8:57 PM CDT) 05/08/2025 8:57 PM CDT Narrative [facility] - 05/09/2025 8:14 PM CDT Vent Rate: 57 bpm RR Interval: 1036 msec SD Interval: 149 msec QRS Duration: 69 msec QT Interval: 372 msec QTC Interval: 367 msec P-R-T [place]: 40 - 8 - 59 degrees IMPRESSION: SINUS BRADYCARDIA BORDERLINE ECG NO CHANGE FROM PREVIOUS TRACING NOTED Electronically Signed By: Jesus Vasquez MD Antwan Kan MD ECG ORDERABLES Final Result Performing Organization Address [facility]/ZIP Co de Phone Number [facility] [employer] [place] * (ABNORMAL) Troponin T high-sensitivity series (baseline, 2hr, 4hr, 6hr) (05/08/2025 8:40 PM CDT) Trop T hs 49(H) <=14 ng/L Comment: Interpretive Data For further hscTnT resources including the diagnostic algorithm and an aid in interpretation, copy and paste this link: https://nrl.testcatalog.org/show/hsTrop Current Interpretive Data last revised 2020. Blood 05/08/2025 8:40 PM CDT 05/08/2025 8:58 PM CDT us Antwan Kan MD LAB BLOOD ORDERABLES Final Resu lt RASHMI FOX ([place]) 1 [facility] [place] [address] * (ABNORMAL) eGFR (05/08/2025 6:17 AM CDT) [...] of Race in Diagnosing Kidney Disease, JASN 202). The CKD-EPI equation should not be used for patients with unstable renal function and has not been validated in children and those over 70. Current interpretive data was last reviewed 2021. Blood 05/08/2025 6:17 AM CDT 05/08/2025 6:26 AM CDT us Antwan Kan MD LAB BLOOD ORDERABLES Final Resu lt RASHMI FOX ([place]) 1 [facility] [place] [address] * Differential, auto (05/08/2025 6:17 AM CDT) [...] Neutrophil pct 58.8 % [facility] ([place]) Comment: Interpretive [...] 6:17 AM CDT 05/08/2025 6:26 AM CDT Antwan Kan MD LAB BLOOD ORDERABLES Final Resu lt Performing Organization Address City/[facility]/ZIP Co de Phone Number [facility] ([place]) 1 [facility] [place] [address] * (ABNORMAL) CBC with auto differential (05/08/2025 6:17 AM CDT) WBC 6.31 3.80 - 9.90 K/cumm Hgb 12.1 11.9 - 15.5 g/dL [facility] ([place]) Hct 38.7 35.6 - 45.5 % [...] - 0.01 K/cumm [facility] ([place]) Blood 05/08/2025 6:17 AM CDT 05/08/2025 6:26 AM CDT Antwan Kan MD LAB BLOOD ORDERABLES Final Resu lt [facility] ([place]) 1 [facility] [place] [address] * (ABNORMAL) Comprehensive metabolic panel (05/08/2025 6:17 [...] (JAME) Glucose 92 70 - 199 mg/dL [facility] ([place]) [...] ORDERABLES Final Resu lt Performing Organization Address City/[facility]/ZIP Co de Phone Number RASHMI FOX ([place]) 1 [facility] [place] [address] * (ABNORMAL) Urinalysis reflex to microscopic (05/07/2025 [...] tendency for uric acid stone formation. Source: [facility] Current Interpretive Data was last revised on [...] ORDERABLES Final Resu lt Performing Organization Address City/[facility]/ZIP Co de Phone Number RASHMI FOX ([place]) 1 [facility] [place] [address] * (ABNORMAL) Urinalysis, microscopic only (05/07/2025 6:04 PM CDT) WBC, ur 6-10(A) 0 - 5 /HPF RBC, ur 0-2 0 - 2 /HPF [facility] ([place]) Epithelial cells, squamous, ur 11-20(A) 0 - 5 /HPF [facility] ([place]) Bacteria, ur 1+(A) [facility] ([place]) Mucous, ur Present(A) [facility] ([place]) Urine 05/07/2025 6:04 PM CDT 05/07/2025 6:09 PM CDT us Antwan Kan MD LAB URINE ORDERABLES Final Resu lt [facility] ([place]) 1 [facility] [place] [address] * MRI Lumbar Spine WO Contrast (05/07/2025 [...] dated 05/06/2025 and 11/04/2021. FINDINGS: SEGMENTATION: 5 fml-kcf-odxoxmd lumbar type vertebral bodies. ALIGNMENT: Mild anterolisthesis [...] facet arthropathy with mild neural foraminal narrowing, sdua-xcnotmm-bkpn-right. L2-L3: No significant disc bulge or spinal canal stenosis. Thickened ligamentum flavum and facet arthropathy with sgbl-ty-qujuszmo left and mild right neural foraminal narrowing. [...] and series 11, image 15). IMPRESSION: 1. Sinr-lv-oluypnsa lumbar disc degeneration with thickened ligamentum flavum [...] Jonas Han D.O. AP: AP Report ID: [id number] Reading Location: [id number] Procedure Note Jonas Han, DO - 05/07/2025 [...] dated 05/06/2025 and 11/04/2021. FINDINGS: SEGMENTATION: 5 ygo-wdx-gzucffu lumbar type vertebral bodies. ALIGNMENT: Mild anterolisthesis [...] and facet arthropathy with mild neural foraminalnarrowing, zzqt-hczojht-ewqt-right. L2-L3: No significant disc bulge or spinal canal stenosis. Thickened ligamentum flavum and facet arthropathy with azkm-on-ocexganj left andmild right neural foraminal narrowing. L3-L4: [...] and series 11, image 15). IMPRESSION: 1. Gmnq-pt-wjywgvvv lumbar disc degeneration with thickened ligamentum flavum [...] Electronically signed by Jonas Han D.O. AP: JOSE ENRIQUE Report ID: [id number] Reading Location: [place] [address] [address] TIRE DUSTER IMG MRI PROCEDURES Final Re sult * [...] MD LAB BLOOD ORDERABLES Final Resu lt [facility] ([place]) 1 [facility] Department of Laboratories [place], [place] [id number] * Differential, auto (05/07/2025 3:00 AM CDT) Neutrophil abs 3.05 1.50 - 6.50 K/cumm Imm gran abs 0.05 0.00 - 0.10 K/cumm [facility] ([place]) Lymphocyte abs 1.69 0.80 - 3.30 K/cumm [facility] ([place]) Monocyte abs 0.52 0.20 - 0.80 K/cumm [facility] ([place]) [...] Final Resu lt RASHMI FOX ([place]) 1 [facility] [place] [address] * (ABNORMAL) CBC with auto differential (05/07/2025 [...] - 0.01 K/cumm [facility] ([place]) Blood 05/07/2025 3:00 AM CDT 05/07/2025 3:37 AM CDT Antwan Kan MD LAB BLOOD ORDERABLES Final Resu lt Performing Organization Address City/[facility]/ZIP Co de Phone Number RASHMI FOX ([place]) 1 [facility] [address] * TSH (05/07/2025 3:00 AM CDT) Thyroid Stimulating Hormone 3.06 0.30 - 4.20 mcIUnit/mL Blood 05/07/2025 3:00 AM CDT 05/07/2025 3:39 AM CDT Antwan Kan MD LAB BLOOD ORDERABLES Final Resu lt [facility] FOX ([place]) 1 [facility] [address] * (ABNORMAL) Comprehensive metabolic panel (05/07/2025 3:00 AM CDT) Sodium 138 135 - 145 mmol/L Potassium, pl 4.7 3.3 - 4.9 mmol/L [facility] ([place]) Chloride 104 97 - 110 mmol/L [facility] ([place]) CO2 24 22 - 32 mmol/L [facility] ([place]) Anion gap 11 2 - 15 mmol/L [facility] ([place]) BUN 31(H) 6 - 25 mg/dL [facility] ([place]) Creatinine 1.01 0.60 - 1.10 mg/dL [facility] ([place]) Glucose 102 70 - 199 mg/dL [facility] ([place]) [...] BLOOD ORDERABLES Final Resu lt RASHMI FOX ([place]) 1 [facility] [place] [address] * POCT glucose (05/06/2025 5:10 PM CDT) Glucose, POC 89 70 - 199 mg/dL Blood 05/06/2025 5:10 PM CDT 05/06/2025 5:10 PM CDT us Angelica Eagle MD LAB POCT ORDERABLES - DEV ICE Final Result Performing Organization Address [facility] Co de Phone Number RASHMI FOX ([place]) 1 [facility] Department of [facility] [place] [address] * XR Spine Lumbar 4 or More [...] states that is normal. Pt has equal welder tech strength. TECHNIQUE: 6 radiographic view(s) of the [...] PM - Electronically signed by Cameron Lyons M.D., JR: Report ID: [id number] Reading Location: [id number] Procedure Note Cameron Lyons MD - 05/06/2025 [...] states that is normal. Pt has equal welder tech strength. TECHNIQUE: 6 radiographic view(s) of the [...] by Cameron Lyons M.D. JR: Report ID: [id number] Reading Location: [id number] Joie MONSIVAIS XR PROCEDURES Final Result * XR Hips [...] states that is normal. Pt has equal welder tech strength. TECHNIQUE: AP pelvis, 2 views of [...] by Cameron Lyons M.D. JR: Report ID: [id number] Reading Location: [id number] Procedure Note Cameron Lyons MD - 05/06/2025 [...] states that is normal. Pt has equal welder tech strength. TECHNIQUE: AP pelvis, 2 views of [...] 2:11 PM - Electronically signed by Cameron Simental.D. JR: Report ID: [id number] Reading Location: [id number] Angelica Eagle MD IMG XR PROCEDURES Final [...] states that is normal. Pt has equal welder tech strength. TECHNIQUE: 2 radiographic view(s) of the [...] by Cameron Lyons M.D. JR: Report ID: [id number] Reading Location: [id number] Procedure Note Cameron Lyons MD - 05/06/2025 [...] states that is normal. Pt has equal welder tech strength. TECHNIQUE: 2 radiographic view(s) of the [...] by Cameron Lyons M.D. JR: Report ID: [id number] Reading Location: [id number] Angelica Eagle MD IMG XR PROCEDURES Final [...] tendency for uric acid stone formation. Source: [facility] Current Interpretive Data was last revised on [...] Reflex to microscopic UA will be performed. [facility] Urine 05/06/2025 1:42 PM CDT 05/06/2025 1:53 PM CDT us Angelica Eagle MD LAB MICROBIOLOGY - GENERA L ORDERABLES Final Result Performing Organization Address [facility] Co de Phone Number RASHMI [facility] ([place]) 1 [facility] [place] [address] * (ABNORMAL) Urinalysis, microscopic only (05/06/2025 1:42 PM CDT) WBC, ur 0-5 0 - 5 /HPF RBC, ur 0-2 0 - 2 /HPF [facility] ([place]) Epithelial cells, squamous, ur 6-10(A) 0 - 5 /HPF [facility] ([place]) Bacteria, ur Trace(A) [facility] ([place] Mucous, ur Present(A) CERNER A ([place]) Culture Reflex Comment Reflex conditions for urine culture (WBC >10) not met. SE[facility]ALNER [facility] ([place]) Urine 05/06/2025 1:42 PM CDT 05/06/2025 1:53 PM CDT us Angelica Eagle MD LAB URINE ORDERABLES Margaret l Result Performing Organization Address [facility] Co de Phone Number RASHMI [facility] ([place]) 1 [facility] [place] [address] * XR Chest 1 Vw Portable (05/06/2025 [...] states that is normal. Pt has equal welder tech strength. TECHNIQUE: Single radiographic view(s) of the chest. COMPARISON: Chest radiograph 04/10/2025 FINDINGS: The heart appears normal in size. There is blunting of the left costophrenic angle which could reflect trace pleural effusion. IMPRESSION: Trace left pleural effusion. THIS IS AN ELECTRONICALLY VERIFIED FINAL REPORT 05/06/2025 12:55 PM - Electronically signed by Cameron Lyons M.D., JR: Report ID: [id number] Reading Location: [id number] Procedure Note Cameron Lyons MD - 05/06/2025 [...] and sees a neurologist. Pt took tylenol [id number]. Speech slightly slurred, but states that is [...] by Cameron Lyons M.D. JR: Report ID: [id number] Reading Location: [id number] Joie HU IMG XR PROCEDURES Final Result * ECG 12 lead (05/06/2025 12:04 PM CDT) 05/06/2025 12:0 4 PM CDT Narrative [facility] - 05/06/2025 1:14 PM CDT Vent Rate: 59 bpm RR Interval: 1011 msec SD Interval: 134 msec QRS Duration: 82 msec QT Interval: 360 msec QTC Interval: 359 msec P-R-T [place]: 40 - 6 - 53 degrees IMPRESSION: SINUS BRADYCARDIA WITH SINUS ARRHYTHMIA BORDERLINE ECG NO CHANGE FROM PREVIOUS TRACING NOTED Electronically Signed By: Jesus Vasquez MD Angelica Eagle MD ECG ORDERABLES Final Res ult Performing Organization Address City/[facility]/ZIP Co de Phone Number [facility] [employer] [place] * (ABNORMAL) eGFR (05/06/2025 12:04 PM CDT) [...] Angelica Eagle MD LAB BLOOD ORDERABLES Margaret l Result [facility] ([place]) 1 [facility] [place] [address] * Differential, auto (05/06/2025 12:04 PM CDT) [...] Neutrophil pct 69.7 % [facility] R [facility] ([place]) Comment: Interpretive Data Percent cell count reference ranges are not reported, since discordance with absolute values may lead to misinterpretation of CBC data. Current Interpretive Data was last revised on 2018. Imm gran pct 0.7 % [facility] ([place]) Comment: Interpretive Data Percent cell count reference [...] 4 PM CDT 05/06/2025 12:07 PM CDT Angelica Eagle MD LAB BLOOD ORDERABLES Margaret neumann Result Performing Organization Address City/[facility]/ZIP Co de Phone Number [facility]ASHMI [facility] ([place]) 1 [facility] [place] [address] * (ABNORMAL) CBC with auto differential (05/06/2025 12:04 PM CDT) WBC 6.83 3.80 - 9.90 K/cumm Hgb 11.4(L) 11.9 - 15.5 g/dL [facility] ([place]) Hct 35.3(L) 35.6 - 45.5 % [facility] ([place]) Plt 274 150 - 400 K/cumm [facility] ([place]) MPV 9.8 9.1 - 12.3 fL [facility] ([place]) RBC 4.10 3.90 - 5.20 M/cumm [facility] ([place]) MCV 86.1 81.3 - 96.4 fL [facility] ([place]) MCH 27.8 27.1 - 33.3 pg [facility] ([place]) MCHC 32.3 32.3 - 35.7 g/dL [facility] ([place]) RDW CV 15.7(H) 11.1 - 14.9 % [facility] ([place]) RDW SD 49.1(H) 35.7 - 48.1 fL [facility] ([place]) NRBC abs 0.00 0.00 - 0.01 K/cumm [facility] ([place]) Blood 05/06/2025 12:0 4 PM CDT 05/06/2025 12:07 PM CDT Angelica Eagle MD LAB BLOOD ORDERABLES Margaret neumann Result Performing Organization Address City/[facility]/ZIP Co de Phone Number RASHMI FOX ([place]) 1 [facility] Department [place] [address] * (ABNORMAL) Comprehensive metabolic panel (05/06/2025 12:04 PM CDT) Sodium 139 135 - 145 mmol/L Potassium, pl 4.8 3.3 - 4.9 mmol/L [facility] ([place]) Chloride 101 97 - 110 mmol/L [facility] ([place]) CO2 24 22 - 32 mmol/L [facility] ([place]) Anion gap 15 2 - 15 mmol/L [facility] ([place]) BUN 33(H) 6 - 25 mg/dL [facility] ([place]) Creatinine 1.00 0.60 - 1.10 mg/dL [facility] ([place]) Glucose 174 70 - 199 mg/dL [facility] ([place]) [...] Angelica Eagle MD LAB BLOOD ORDERABLES Margaret l Result RASHMI FOX ([place]) 1 [facility] [place] [address] * (ABNORMAL) eGFR (04/14/2025 10:35 AM CDT) [...] LAB BLOOD ORDERABLES Margaret l Result RASHMI FOX ([place]) 1 [facility] Department of [facility] [place] [address] * (ABNORMAL) Basic metabolic panel (04/14/2025 10:35 AM CDT) Sodium 141 135 - 145 mmol/L Potassium, pl 4.7 3.3 - 4.9 mmol/L [facility] ([place]) Chloride 103 97 - 110 mmol/L [facility] ([place]) CO2 26 22 - 32 mmol/L [facility] ([place]) Anion gap 12 2 - 15 mmol/L [facility] ([place]) BUN 31(H) 6 - 25 mg/dL [facility] ([place]) Creatinine 1.04 0.60 - 1.10 mg/dL [facility] ([place]) Glucose 123 70 - 199 mg/dL [facility] ([place]) Comment: Interpretive Data Fasting glucose >/= [...] 2022. Calcium 9.4 8.5 - 10.3 mg/dL [facility] ([place]) Blood 04/14/2025 10:3 5 AM CDT 04/14/2025 10:38 AM CDT Harmony Wynne MD LAB BLOOD ORDERABLES Margaret l Result [facility] ([place]) 1 [facility] [place] [address] * (ABNORMAL) Potassium (04/11/2025 11:38 AM CDT) [facility] Potassium, pl 5.1(H) 3.3 - 4.9 mmol/L Blood 04/11/2025 11:3 8 AM CDT 04/11/2025 11:43 AM CDT Harmony Wynne MD LAB BLOOD ORDERABLES Margaret l Result [facility] 1 [facility] Department of [facility] [place] [address] * (ABNORMAL) eGFR (04/11/2025 2:37 AM CDT) [...] MD LAB BLOOD ORDERABLES Margaret neumann Result [facility] ([place]) 1 [facility] [place] [address] * Differential, auto (04/11/2025 2:37 AM CDT) [...] BLOOD ORDERABLES Margaret neumann Result RASHMI FOX ([place]) 1 [facility] Department of Laboratories [place], [place] [id number] * (ABNORMAL) CBC with auto differential (04/11/2025 [...] MD LAB BLOOD ORDERABLES Margaret neumann Result [facility] ([place]) 1 [facility] [place] [address] * (ABNORMAL) Comprehensive metabolic panel (04/11/2025 2:37 [...] - 45 Units/L [facility] ([place]) AST 34 10 - 45 Units/L [facility] ([place]) Comment: Hemolysis present. Results may be affected. Slightly Hemolyzed Specimen Blood 04/11/2025 2:37 AM CDT 04/11/2025 3:32 AM CDT us Silvina Elena MD LAB BLOOD ORDERABLES Margaret l Result [facility] ([place]) 1 [facility] [place] [address] * TRANSTHORACIC ECHO (TTE) COMPLETE W DOPPLER/CF WO CONTRAST (04/10/2025 3:52 PM CDT) Estimated EF 70 % CONS SCIMAGE Anatomical Region Laterality Modality Ultrasound 04/10/2025 3:42 PM CDT Narrative 04/10/2025 4:53 PM CDT [address] [place] [address] Echocardiogram Report Patient Name: NICOLLE HERNÁNDEZ : 1935 Study Date: 04/10/2025 3:42:13 PM Gender: F Tech: Location: [id number] Ref Provider: MELVIN HUNTER Height(Cm): BSA: Weight(Kg): [...] Procedure Note Melvin Hunter MD - 04/10/[address] [place] [address] Echocardiogram Report Patient Name: NICOLLE HERNÁNDEZ : 1935 Study Date: 04/10/2025 3:42:13 PM Gender: F Tech: Location: [id number] Ref Provider: MELVIN HUNTER Height(Cm): BSA: Weight(Kg): [...] CDT) 04/10/2025 10:5 3 AM CDT Narrative [facility] - 04/10/2025 11:56 AM CDT Vent Rate: 60 bpm RR Interval: 996 msec SD Interval: 144 msec QRS Duration: 71 msec QT Interval: 370 msec QTC Interval: 370 msec P-R-T [place]: 39 - -4 - 66 degrees IMPRESSION: SINUS RHYTHM NORMAL ECG Compared to prior EKG, heart rate has increased Electronically Signed By: Jesus Vasquez MD Silvina Elena MD ECG ORDERABLES Final Res ult Performing Organization Address City/[facility]/ZIP Co de Phone Number [facility] * POCT glucose (04/10/2025 10:03 AM CDT) Glucose, POC 157 70 - 199 mg/dL Blood 04/10/2025 10:0 3 AM CDT 04/10/2025 10:03 AM CDT Silvina Elena MD LAB POCT ORDERABLES - DEV ICE Final Result Performing Organization Address City[facility] Co de Phone Number RASHMI [facility] ([place]) 1 [facility] Department of Laboratories [place] [id number] * (ABNORMAL) Urinalysis reflex to microscopic and culture Urine (04/10/2025 9:24 AM CDT) Color, ur Yellow Yellow Clarity, ur Turbid(A) Clear CERNER A ([place]) Specific gravity, ur 1.016 1.003 - 1.030 RASHMI FOX ([place]) pH, urine 6.5 RASHMI FOX ([place]) Comment: Interpretive Data U rine pH is affected by diet, medications, systemic acid-base disturbances, and renal tubular function. pH may affect urinary stone formation. For example, urine pH below 6.0 may help reduce the tendency for calcium phosphate stones and pH greater than 6.0 may reduce the tendency for uric acid stone formation. Source: [facility] Current Interpretive Data was last revised on [...] 9:47 AM CDT Silvina Elena MD LAB MICROBIOLOGY - GENERA L ORDERABLES Final Result Performing Organization Address [facility] Co de Phone Number RASHMI FOX ([place]) 1 [facility] [place] [address] * (ABNORMAL) Urinalysis, microscopic only (04/10/2025 9:24 AM CDT) WBC, ur 0-5 0 - 5 /HPF RBC, ur 0-2 0 - 2 /HPF [facility] ([place]) Epithelial cells, squamous, ur 1-5 0 - 5 /HPF [facility] ([place]) Bacteria, ur Trace(A) [facility] ([place]) Mucous, ur Present(A) [facility] ([place]) Culture Reflex Comment Reflex conditions for urine culture (WBC >10) not met. [facility] ([place]) Urine 04/10/2025 9:24 AM CDT 04/10/2025 9:47 AM CDT Silvina Elena MD LAB URINE ORDERABLES Margaret l Result Performing Organization Address City[facility]/ZIP Co de Phone Number RASHMI FOX ([place]) 1 [facility] [place] [address] * CT Head WO Contrast (04/10/2025 6:25 [...] Regis Reyes M.D. NS: NS Report ID: [id number] Reading Location: [id number] Procedure Note Regis Reyes MD - 04/10/2025 EXAM DESCRIPTION: CT HEAD WO CONTRAST REASON FOR STUDY: Headache, sudden, severe, High blood pressure headache Patient complains of head, neck and chest pain today. TECHNIQUE: Axial images acquired through the brain without intravenous contrast. Sagittal and coronal images reconstructed. Images stored onCACS. Automated exposure control was used as a [...] Regis Reyes M.D. NS: NS Report ID: [id number] Reading Location: [place] [address] Cuco Luke MD IMG CT PROCEDURES Final [...] 4:45 AM CDT 04/10/2025 4:53 AM CDT Cuco Luke MD LAB BLOOD ORDERABLES Final Re sult Performing Organization Address [facility] Co de Phone Number RASHMI FOX ([place]) 1 [facility] [place] [address] * (ABNORMAL) Troponin T high-sensitivity 2-hour (04/10/2025 2:53 AM CDT) Trop T hs 32(H) <=14 ng/L Comment: Interpretive Data For further hscTnT resources including the diagnostic algorithm and an aid in interpretation, copy and paste this link: https://nrl.testcatalog.org/show/hsTrop Current Interpretive Data last revised 2020. Trop T hs delta 0 ng/L [facility] ([place]) Trop T hs interp Insignificant [facility] ([place]) Blood 04/10/2025 2:53 AM CDT 04/10/2025 3:59 AM CDT Cuco Luke MD LAB BLOOD ORDERABLES Final Re sult Performing Organization Address [facility] Co de Phone Number RASHMI FOX ([place]) 1 [facility] Department of [facility] [place] [address] * XR Chest 1 Vw Portable (if [...] Tristan Ryan M.D. AR: CECILIA Report ID: [id number] Reading Location: [id number] Procedure Note Tristan Ryan MD - 04/10/2025 [...] Tristan Ryan M.D. AR: CECILIA Report ID: [id number] Reading Location: [place] [address] Cuco Luke MD IMG XR PROCEDURES Final [...] BLOOD ORDERABLES Final Re sult RASHMI FOX ([place]) 1 [facility] [place] [address] * eGFR (04/10/2025 12:44 AM CDT) Pathologist [facility] [place] eGFR 60 >=60 mL/min/1. 73 m2 Comment: [...] LAB BLOOD ORDERABLES Final Re sult RASHMI ZhengKYLE) 1 [facility] [place] [address] * Differential, auto (04/10/2025 12:44 AM CDT) Neutrophil abs 2.99 1.50 - 6.50 K/cumm Imm gran abs 0.02 0.00 - 0.10 K/cumm [facility] ([place]) Lymphocyte abs 1.69 0.80 - 3.30 K/cumm [facility] ([place]) Monocyte abs 0.58 0.20 - 0.80 K/cumm [facility] ([place]) Eosinophil abs 0.05 0.00 - 0.50 K/cumm [facility] ([place]) Basophil abs 0.01 0.00 - 0.10 K/cumm [facility] ([place]) Neutrophil pct 56.0 % [facility] ([place]) Comment: Interpretive Data Percent cell count reference ranges are not reported, since discordance with absolute values may lead to misinterpretation of CBC data. Current Interpretive Data was last revised on 2018. Imm gran pct 0.4 % [facility] ([place]) Comment: Interpretive Data Percent cell count reference ranges are not reported, since discordance with absolute values may lead to misinterpretation of CBC data. Current Interpretive Data was last revised on 2018. Lymphocyte pct 31.6 % [facility] ([place]) Comment: Interpretive Data Percent cell count reference ranges are not reported, since discordance with absolute values may lead to misinterpretation of CBC data. Current Interpretive Data was last revised on 2018. Monocyte pct 10.9 % [facility] ([place]) Comment: Interpretive Data [...] BLOOD ORDERABLES Final Re sult RASHMI FOX ([place]) 1 [facility] [place] [address] * (ABNORMAL) CBC with auto differential (04/10/2025 12:44 AM CDT) Pathologist [facility] [place] WBC 5.34 3.80 - 9.90 K/cumm Hgb [...] RDW SD 49.7(H) 35.7 - 48.1 fL [facility] ([place]) NRBC abs 0.00 0.00 - 0.01 K/cumm [facility] ([place]) Blood Venous blood specimen / Unknown 04/10/2025 12:44 AM CDT 04/10/2025 12:59 AM CDT us Cuco Luke MD LAB BLOOD ORDERABLES Final Re sult [facility] ([place]) 1 [facility] [place] [address] * (ABNORMAL) Comprehensive metabolic panel (04/10/2025 12:44 AM CDT) Pathologist [facility] [place] Sodium 138 135 - 145 mmol/L Potassium, pl 4.5 3.3 - 4.9 mmol/L [facility] ([place]) Chloride 101 97 - 110 mmol/L [facility] ([place]) CO2 24 22 - 32 mmol/L [facility] ([place]) Anion gap 13 2 - 15 mmol/L [facility] ([place]) BUN 29(H) 6 - 25 mg/dL [facility] ([place]) Creatinine 0.91 0.60 - 1.10 [...] 5.0 g/dL [facility] ([place]) Alk phos 104 40 - 130 Units/L [facility] ([place]) ALT <5(L) 7 - 45 Units/L [facility] ([place]) AST 27 10 - 45 Units/L [facility] ([place]) Comment: Hemolysis present. Results may be affected. Slightly Hemolyzed Specimen Blood 04/10/2025 12:4 4 AM CDT 04/10/2025 12:59 AM CDT us Cuco Luke MD LAB BLOOD ORDERABLES Final Re sult [facility] ([place]) 1 [facility] Department of Laboratories [place], [place] [id number] * ECG 12 lead (04/10/2025 12:32 AM CDT) 04/10/2025 12:3 2 AM CDT Narrative [facility] - 04/10/2025 8:35 AM CDT Vent Rate: 41 bpm RR Interval: 1434 msec SD Interval: 144 msec QRS Duration: 72 msec QT Interval: 407 msec QTC Interval: 345 msec P-R-T [place]: 41 - -4 - 52 degrees IMPRESSION: SINUS BRADYCARDIA WITH SINUS ARRHYTHMIA POSSIBLE LEFT ATRIAL ENLARGEMENT [-0.1mV P WAVE IN V1/V2] BORDERLINE ECG NO CHANGE FROM PREVIOUS TRACING NOTED Electronically Signed By: Jesus Vasquez MD us Cuco Luke MD ECG ORDERABLES Final Result [facility] * (ABNORMAL) Hemoglobin A1c (01/21/2025 3:11 PM CDT) Hgb A1C 6.2(H) 4.0 - 5.6 % Estimated Average Glucose 131 mg/dL RASHMI FOX ([place]) Comment: The ADA recommends reporting an estimated Average Glucose (eAG) with all Hemoglobin A1c results using the equation derived from a study of 507 normal and diabetic adults. Minority populations were underrepresented and children were not included. (Diabetes Care 31:2013-8201, 2008). The eAG is not equivalent to a fasting glucose. Blood 01/21/2025 3:11 PM CDT 01/21/2025 3:15 PM CDT Narrative RASHMI FOX ([place]) - 01/21/2025 4:11 PM CDT FASTING 1-2 WEEKS BEFORE JANUARY 2025 APPT Fede HU LAB BLOOD ORDERABLES Fi nal Result RASHMI FOX ([place]) 1 [facility] [place] [address] * Lipid panel (01/21/2025 3:11 PM CDT) [...] on 2018. Triglycerides 71 <=149 mg/dL RASHMI MORA) Comment: Interpretive Data Ages < or = [...] on 2018. HDL 89 >=40 mg/dL RASHMI MORA) Comment: Interpretive Data Ages < or = [...] 2018. LDL, calculated 85 <=129 mg/dL RASHMI MORA) Comment: Interpretive Data Ages < or = 19 years Acceptable: <110 mg/dL Borderline high: 110-129 mg/dL High: >or= 130 mg/dL Ages > or = 20 years Optimal: <100 mg/dL Near optimal: 100-129 mg/dL Borderline high: 130-159 mg/dL High: >160 mg/dL Calculated using the Burton LDL-C estimating equation. This equation was implemented on 2024. Prior to this date LDL-C was estimated using the Friedewald equation. Literature References: 1. Expert Panel on Integrated Guidelines for Cardiovascular Health and Risk Reduction in Children and Adolescents. Pediatrics 2011;128:S213 2. NCEP Expert Panel. Circulation 2004;110:227 3. Micheal M et al. NOHEMY Cardiol. 2020 March 05;5(5):540-548. [...] CDT Narrative RASHMI FOX ([place]) - 01/21/2025 4:06 PM CDT FASTING 1-2 WEEKS BEFORE JANUARY 2025 APPT us Fede HU LAB BLOOD ORDERABLES Fi nal Result RASHMI FOX ([place]) 1 [facility] [place] [address] * (ABNORMAL) Albumin Creatinine Ratio, Urine (06/11/2024 3:25 PM CDT) Albumin Ur 577.8 mg/L Comment: Interpretive Data No reference range established. Current interpretive data was last revised 2019. Testing performed by: [address] [place] [address] Creatinine Ur 117.5 mg/dL RASHMI FOX ([place]) Comment: Interpretive Data No reference range established. Current interpretive data was last revised 2019. Testing performed by: [address], [place]., [address] Albumin Creatinine Ratio, Ur 492(H) 1 - 29 mg/g RASHMI FOX ([place]) Comment:Testing performed by : [facility], [address] [place] [address]., [address] Urine 06/11/2024 3:25 PM CDT 06/12/2024 9:00 AM CDT us Fede HU LAB URINE ORDERABLES Fi nal Result RASHMI RUDDY ([place]) 1 [facility] [address] * Diabetic Eye Exam (06/25/2023) us Generic External Data Provider HEALTH MAINTENANC E Final Result * FIT occult blood, fecal (09/02/2020 9:16 AM CDT) Pathologist [facility] [place] FIT occult blood, fecal Negative Negative RASHMI FOX ([place]) Comment: Negative result. This test will not detect upper gastrointestinal bleeding; the HemoQuant test ([id number])should be ordered if clinically indicated. Test Performed by: [place] [address] Director Transportation: Jake Mcgarry M.D. Ph.D.; CLIA# [id number] Stool 09/02/2020 9:16 AM CDT 09/02/2020 1:30 PM CDT us George Young MD LAB BODY FLUIDS AND STOOLS ORDERABLES Final Result RASHMI FOX ([place]) 1 [facility] [place] [address] * Screening Mammogram Bilateral W Mane (07/27/2020 [...] for her next mammogram. Electronically signed by: Julio Hinkle 07/27/2020 3:06 PM CDT EXAMINATION: SCREENING MAMMOGRAM [...] There has been no suspicious interval change. George Young MD IMG MAMMO PROCEDURE S Final Result * DIABETES FOOT EXAM (01/11/2019) Diabetic Foot Exam Normal Result [facility] Provider HEALTH MAINTENANCE Final Result * COLONOSCOPY (06/25/2007) Pathologist On license of [facility] Colonoscopy Abnormal Comment:Diverticulosis and h emorrhoidal disease [facility] Provider HEALTH MAINTENANCE Final Result * DEXA SCAN (03/09/2005) DEXA Scan Normal [facility] Provider HEALTH MAINTENANCE Final Result from Last 3 Months or Most Recently Relevant to Health Maintenance Insurance MEDICARE COMMERCIAL 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 [address] [place] [address] PCP - General Internal Medicine 07/04/22 Lynda Silvestre MD [address] [place] [address] Referring Physician Ophthalmology 11/13/22 Victor Manuel Real MD [address] [facility] [address] [place] [address] Consulting Physician Neurology 01/18/24 Nazario Osman DPM [address] [place] [address] Consulting Physician Orthotics 01/18/24 Concha Prakash, RN [address] [facility] [address] [place] [address] [facility] 05/06/25
--- OUTSIDE RECORDS SUMMARY | 2025-05-13 15:09 | XMS_ITS | Encounter Summary ---
Author Organization [facility] Healthcare Address [address] [place] [address] Care Team Providers Care Information Management Officer Name Role Phone Fede Mills Primary Care Provider Lynda Silvestre MD Unavailable [phone] Victor Manuel Real MD Unavailable [phone] Nazario Osman DPM Unavailable [phone] Concha Prakash RN Unavailable [phone] Encounter Details Date Type Department Care Team (Late st Contact Info) Description 05/12/2025 Telephone [place] Lactation Specialist at [address] [address] Omar Briceño NP [address] [place] [address] [address] [place] [address] Social History Tobacco Use Types Packs/Day Years Used Date Smoking Tobacco: Never Smokeless Tobacco: Never Alcohol Use Standard Drinks/Week Comments No 0 (1 standard drink = 0.6 oz pur e alcohol) [facility] Utilities Answer Date Recorded In the past 12 months has e electric, gas, oil, or water company threatened to shut off services in your [...] often do you attend chur ch or hindu services? Never 05/07/2025 Do you belong to any clubs o r organizations such as synagogue groups, unions, fraternal or athletic groups, or [...] place to sleep or slept in a jail (including now)? No 11/23/2023 Housing Stability Vital [...] in the past 12 m [facility], were you homeless or living in a jail (including now)? 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 * Telephone Encounter - Omar Briceño NP - 05/12/2025 11:10 AM CDT No reschedule for six weeks * Telephone Encounter - Rosanna Jin MA - 05/12/2025 9:21 AM CDT Ludmila from [facility] called and stated the is wondering if patient you still want to see her since she was just in the hospital on - 05/09/25. Ludmila Jorge [phone] Call back. documented in this encounter Plan of Treatment Not on file documented as of this encounter Visit Diagnoses Not on filedocumented in this encounter Care Teams Information Management Officer Relationship Specialty Start Date End Date Fede Mills PA [address] [facility] [address] [place] [address] PCP - General Internal Medicine 07/04/22 Lynda Silvestre MD [address] [place] [address] Referring Physician Ophthalmology 11/13/22 Victor Manuel Real MD [address] [place] [address] [address] [place] [address] Consulting Physician Neurology 01/18/24 Nazario Osman DPM [address] [place] [address] Consulting Physician Orthotics 01/18/24 Concha Prakash, LAMINE [address] [place] [address] [address] [place] [address] Morning News Producer 05/06/25 documented as of this encounter
--- OUTSIDE RECORDS SUMMARY | 2025-05-13 15:09 | XMS_ITS | Encounter Summary ---
Author Organization [facility] Healthcare Address [address] [place] [address] Care Team Providers Care Housekeeper Child Care Name Role Phone Fede Mills Primary Care Provider Lynda Silvestre MD Unavailable Victor Manuel Real MD Unavailable [phone] Nazario Osman DPM Unavailable [phone] Concha Borjas RN Unavailable [phone] Reason for Visit * Reason Onset Date Comments Concerns for sudden weakness this morning 2024 Encounter Details Date Type Department Care Team (Late st Contact Info) Description 05/06/2025 Telephone [facility] Primary Care at [place] [address] [facility] [address] [place] [address] Fede Mills PA [address] [place] [address] [address] [place] [address] Concerns for sudden weakness this morning Social History Tobacco Use Types Packs/Day Years Used Date Smoking Tobacco: Never Smokeless Tobacco: Never Alcohol Use Standard Drinks/Week Comments No 0 (1 standard drink = 0.6 oz pur e alcohol) [facility] Utilities Answer Date Recorded In the past 12 months has [employer], gas, oil, or water company threatened to [...] often do you attend chur ch or confucianist services? Never 05/07/2025 Do you belong to any clubs o r organizations such as yazidi groups, unions, fraternal or athletic groups, or [...] place to sleep or slept in a snf (including now)? No 11/23/2023 Housing Stability Vital Sign Answer Ethan e Recorded In the last 12 months, was t here a time when you were not able to pay the mortgage or rent on time? No 05/07/2025 In the past 12 months, how m any times have you moved where you were living? 0 05/07/2025 At any time in the past 12 m onths, were you homeless or living in a snf (including now)? 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 states The firemen are here now. They're takingher to the hospital now * Telephone Encounter - Concha Borjas RN - 05/06/2025 9:48 AM CDT Action required Pt's Red called me this morning to report a change in pt this morning. In the past pt was able to stand and pivot for transfers but this morning was very weak, she stood briefly but becametoo weak to stand. denies fever, s/s of UTI with no changes in cognition, appetite or GI/GUand pt is sleeping well overnight. Last HH therapy visit, pt was able to walk 30 feet. Unfortunately when pt was discharged from hospital a HH RN was not ordered. reports HH therapy is due for a visit today at 1. I attempted to schedule a SDS OV but there is no availability to schedule until 05/11. Can you contact to advise? Thank you, Concha Borjas RN, BSN, [facility] Accountable Care Organization Email [email or web address] documented in this encounter Plan of Treatment Not on file documented as of this encounter Visit Diagnoses Not on filedocumented in this encounter Care Teams Housekeeper Child Care Relationship Specialty Start Date End Date Fede Mills PA [address] [facility] [address] [place] [address] PCP - General Internal Medicine 07/04/22 Lynda Silvestre MD [address] [place] [address] Referring Physician Ophthalmology 11/13/22 Victor Manuel Real MD [address] [facility] [address] [place] [address] Consulting Physician Neurology 01/18/24 Nazario Osman DPM [address] [place] [address] Consulting Physician Orthotics 01/18/24 Concha Borjas, LAMINE [address] [place] [address] [address] [place] [address] Predictive Maintenance Specialist 05/06/25 documented as of this encounter
--- OUTSIDE RECORDS SUMMARY | 2025-05-13 15:09 | XMS_ITS | Encounter Summary ---
Author Organization [facility] Healthcare Address [address] [place] [address] Care Team Providers Care Digital Marketing Program Manager Name Role Phone Fede Mills Primary Care Provider Lynda Silvestre MD Unavailable [phone] Victor Manuel Real MD Unavailable [phone] Nazario Osman DPM Unavailable [phone] Concha Prakash RN Unavailable [phone] Concha Prakash RN Unavailable [phone] Reason for Visit * Reason Onset Date Comments Additional Services Or Orders 04/14/2025 Encounter Details Date Type Department Care Team (Late st Contact Info) Description 04/14/2025 Telephone [facility] Medical Group Primary Care at [address] [place] [address] Fede Mills PA [address] [place] [address] [address] [place] [address] Additional Services Or Orders Social History Tobacco Use Types Packs/Day Years Used Date Smoking Tobacco: Never Smokeless Tobacco: Never Alcohol Use Standard Drinks/Week Comments No 0 (1 standard drink = 0.6 oz pur e alcohol) [facility] Utilities Answer Date Recorded In the past 12 months has th e electric, gas, oil, or water [employer] threatened to shut off services in your home? No 04/13/2025 Social Connection and Isolation Panel [NHANES] A nswer Date Recorded In a typical week, how many times do you talk on the phone with family, friends, or neighbors? Twice a week 04/13/2025 How often do you get together with friends or re latives? Twice a week 04/13/2025 How often do you attend nondenominational or adventism serv ices? Never 04/13/2025 Do you belong to any clubs o r organizations such as nondenominational groups, unions, fraternal or athletic groups, or school groups? No 04/13/2025 How often do you attend meet ings of the clubs or organizations you belong to? Never 04/13/2025 Are you , , di vorced, , never , or living with a partner? 04/13/2025 AUDIT-C Answer Date Recorded Q1: How often do you have a drink containing alcohol? Never 01/21/2025 Q2: How many drinks containi ng alcohol do you have on a typical day when you are drinking? Patient does not drink Q3: How often do you have si x or more drinks on one occasion? Never 01/21/2025 Overall Financial Resource Strain (CARDIA) Answe r Date Recorded How hard is it for you to pa y for the very basics like food, housing, medical care, and heating? Not very hard 04/13/2025 PHQ-2 Answer Date Recorded PHQ-2 Total Score (If total score is 3 or more points, staff should administer the PHQ-9) 0 01/21/2025 Hunger Vital Sign Answer Date Recorded Within [...] place to sleep or slept in a long term (including now)? No 11/23/2023 Housing Stability Vital Sign Answer Ethan e Recorded In the last 12 months, was t here a time when you were not able to pay the mortgage or rent on time? No 04/13/2025 In the past 12 months, how m any times have you moved where you were living? 0 04/13/2025 At any time in the past 12 m [facility], were you homeless or living in a long term (including now)? 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 * Telephone Encounter - Fede Mills PA - 04/15/2025 12:59 PM CDT Yes ok * Telephone Encounter - Angelica Elizabeth - 04/14/2025 1:23 PM CDT Additional Services or Orders Type of Service Requested:Physical Therapy and Occupational Therapy Duration/Number of Visits: undetermined Is a verbal order acceptable? Yes Reason for Request (e.g. condition/symptom, date of COVID exposure if applicable): [facility] Details Regarding Additional Services (e.g. type of home health, type of equipment, type of test, etc.): Home health Where will services be performed? (if outside of the practice, facility name, address, phone/fax offacility): Patient's residence Additional Comments: Mushtaq with [facility] would like to know if the PA will follow the patient for PT and OT. Does message need to be routed? Yes-Action Needed documented in this encounter Plan of Treatment Not on file documented as of this encounter Visit Diagnoses Not on filedocumented in this encounter Care Teams Digital Marketing Program Manager Relationship Specialty Start Date End Date Fede Mills PA [address] [facility] [address] [place] [address] PCP - General Internal Medicine 07/04/22 Lynda Silvestre MD [address] [place] [address] Referring Physician Ophthalmology 11/13/22 Victor Manuel Real MD [address] [facility] [address] [place] [address] Consulting Physician Neurology 01/18/24 Nazario Osman DPM [address] [place] [address] Consulting Physician Orthotics 01/18/24 Concha Prakash, LAMINE [address] [place] [address] [address] [place] [address] Drug Abuse Social Worker 04/13/25 04/29/25 Concha Prakash, LAMINE [address] [place] [address] [address] [place] [address] Drug Abuse Social Worker 05/06/25 documented as of this encounter
--- OUTSIDE RECORDS SUMMARY | 2025-05-13 15:09 | XMS_ITS | Encounter Summary ---
Author Organization [facility] Address [address] [address] Care Team Providers Care Rotary Cutter Name Role Phone Otf Young MD Primary Care Provi patricia Otf Young MD Primary Care Provi patricia Otf Young MD Primary Care Provi patricia Otf Young MD Primary Care Provi patricia Otf Young MD Primary Care Provi patricia Otf Young MD Primary Care Provi patricia Fede Mills Primary Care Provider Lynda Silvestre MD Unavailable [phone] Victor Manuel Real MD Unavailable [phone] Nazario Osman DPM Unavailable [phone] Concha Prakash RN Unavailable [phone] Concha Prakash RN Unavailable [phone] Encounter Details Date Type Department Care Team (Late st Contact Info) Description 06/25/2007 Orders Only [facility] [address] [place] [address] Otf Young MD [address] [facility] [place] [address] Social History Tobacco Use Types Packs/Day Years Used Date Smoking Tobacco: Never Assessed Comments Unknown Sex and Gender Information Value Date Recorded Sex Assigned at Not on file 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 Gender Identity Not on file Sexual Orientation Not on file documented as of this encounter Plan of Treatment Not on file documented as of this encounter Procedures Procedure Name Priority Date/Time Associated Diagnosis Comments COLONOSCOPY Routine 06/25/2007 documented in this encounter Results * Colonoscopy (06/25/2007) Anatomical Region Laterality Modality Other Historical Provider ENDOSCOPY PROCEDURES Margaret l Result documented in this encounter Visit Diagnoses Not on filedocumented in this encounter Additional Health Concerns Infection Onset Date Last Indicated Resolved Time COVID: Suspected 07/19/2024 07/19/2024 07/19/2024 7:48 AM CDT documented as of this encounter Care Teams Rotary Cutter Relationship Specialty Start Date End Date Otf Young MD PCP - General 02/02/17 07/03/22 Otf Young MD PCP - General 01/08/17 02/01/17 Otf Young MD PCP - General 10/06/13 01/07/17 Otf Young MD PCP - General 09/24/07 10/05/13 Otf Young MD PCP - General 08/22/07 09/23/07 Otf Young MD PCP - General 05/29/07 08/21/07 Fede Mills PA [address] [place] [address] [address] [place] [address] PCP - General Internal Medicine 07/04/22 Lynda Silvestre MD [address] [place] [address] Referring Physician Ophthalmology 11/13/22 Victor Manuel Real MD [address] [place] [address] [address] [place] [address] Consulting Physician Neurology 01/18/24 Nazario Osman DPM [address] [place] [address] Consulting Physician Orthotics 01/18/24 Concha Prakash RN [address] [place] [address] [address] [place] [address] Doughnut Icer Machine 04/13/25 04/29/25 Concha Prakash RN [address] [place] [address] [address] [place] [address] Doughnut Icer Machine 05/06/25 documented as of this encounter
--- OUTSIDE RECORDS SUMMARY | 2025-05-13 15:09 | XMS_ITS | Data Portability ---
Author Organization [place] [employer] [facility] Main Office Address [address] [place] [address] Care Team Providers Care Dot Net Architect Name Role Phone [facility] HARVINDER [facility] FAX OTHER [place] Primary Care Provider Assessment Encounter Date Assessment Date Assessment LastModified by Organization Details LastModified Time 09/16/2024 09/16/2024 Hold ASA x 3 days (resume 09/20), report recurrence of hematuria to us. UA pending from this AM. Labs (CBC, BMP, CRP) in AM. Not available 09/16/2024 13:08:38 09/19/2024 09/19/2024 Holding ASA x 3 days (resume 09/20), report recurrence of hematuria to us. Urine cx pending from 09/16. Not available 09/19/2024 12:33:06 09/22/2024 09/22/2024 Consider treating bacteriuria depending on tomorrow's labs/CRP results. Labs (CBC, CMP, CRP) in AM. Not available 09/22/2024 13:54:35 09/24/2024 09/24/2024 Pt will d/c home on 09/26 with [facility] and family care. Not available 09/24/2024 16:02:36 Plan of Treatment Reminders Order Date Submit Date Provider Last Modified By Organization Details Last Modified Time Details Appointments None record ed. Lab None record ed. Referral None record ed. Procedures None record ed. Surgeries None record ed. Imaging None record ed. Medication Orders None record ed. Patient TargetsNo targets recorded. Patient Instructions Encounter Date Encounter Id Patient Instructions Last Modified By Organization Details Last Modified Time 09/11/2024 [id number] I spent 36 minutes providing care to the patient today. More than 50% of that time was spent in discussing the expected course of the disease, discussing prognosis, coordinating care and counseling of the patient/family. Not available 09/11/2024 13:32:48 09/16/[id number] I spent 36 minutes providing care to the patient today. More than 50% of that time was spent in discussing the expected course of the disease, discussing prognosis, coordinating care and counseling of the patient/family. [email or web address] Not available 09/16/2024 13:09:59 09/19/[id number] I spent 34 minutes providing care to the patient today. More than 50% of that time was spent in discussing the expected course of the disease, discussing prognosis, coordinating care and counseling of the patient/family. Not available 09/19/2024 12:34:58 09/22/[id number] I spent 32 minutes providing care to the patient today. More than 50% of that time was spent in discussing the expected course of the disease, discussing prognosis, coordinating care and counseling of the patient/family. Not available 09/22/2024 13:58:42 09/24/[id number] I spent 40 minutes providing care to the patient today. More than 50% of that time was spent in discussing the expected course of the disease, discussing prognosis, coordinating care and counseling of the patient/family. The patient will be discharged home with home health orders of home health RN / PT / OT to evaluate and treat. The patient is homebound because of fall risk and is unable to leave home safely because requires considerable and taxing effort to leave home. The patient requires home health nursing for instruction, observation and assessment; PT for training to restore safe independent functional ambulation in community; and OT for training to improve ability to fulfill ADLs. Please follow-up with your primary care provider within 1 week. Call your primary care provider for instructions or go to the emergency room for new or worsening symptoms. [email or web address] Not available 09/24/2024 16:02:42 Reason for Referral None Reported. Results Created Date Observation Date Name Description Value Unit Range Abnormal Flag Note LastModifiedBy Organization Detail LastModifiedTime Result Notes None recorded. Procedures Surgical History Date Name Laterality Status Provider Name and Address Organization Details Recorded Time intrauterine contraceptive device [place] [address] [place], [address], [facility] 09/22/2024 13:59:19 Imaging Results None recorded. Procedure Notes None recorded. Medical Equipment None Reported. Allergies Allergen ID Allergen Name Allergen Category Reaction Reaction Severity Criticality Documentation Date Start Date Code Code System Note Provider Name and Address Organization Details Recorded Time 32462 Product containin g penicilli n (product) medicatio n Not available Not available Not available 08/26/2024 19650 [facility]001 [facility] [place] [facility] 21:54:56 14783 codeine medicatio n Not available Not available Not available 08/26/2024 2670 RxNorm [place], [place] - [facility] 21:55:01 58044 penicilli n V Not available Not available Not available Not available 08/26/2024 7984 [place] [address] [place], [address], [facility] 10:07:49 05352 Substance with sulfonami de structure and antibacte rial mechanism of action (substanc e) medicatio n Not available Not available Not available 08/26/2024 68949 [facility]003 [facility] [place] [facility] 21:55:11 Medications Name Sig Start Date Stop Date Status Note LastModified by Organization Details LastModified Time Miralax 17 gram oral powder packet Take 1 packet every day by oral route. active Not Available Not Available No t Available multivitam in tablet Take 1 tablet every day by oral route. active Not Available Not Available No t Available carvedilol 6.25 mg tablet Take 1 tablet twice a day by oral route. 09/11 completed Not Available Not Available Not Available fexofenadi ne 60 mg tablet Take 1 tablet every day by oral route as needed. active Not Available Not Available No t Available simvastati n 10 mg tablet Take 1 tablet every day by oral route. 2023 active Not Available Not Available Not Avai lable midodrine 5 mg tablet TAKE 1 TABLET BY MOUTH TWICE A DAY active Not Available Not Available No t Available amlodipine 2.5 mg tablet Take 1 tablet every day by oral route. 2023 active Not Available Not Available Not Avai lable fexofenadi ne 180 mg tablet Take 1 tablet every day by oral route. 09/04 completed Not Available Not Available Not Available aspirin 81 mg tablet,del ayed release Take 1 tablet every day by oral route. 2023 active Not Available Not Available Not Avai lable acetaminop hen 500 mg tablet Take 1 tablet every 4 hours by oral route as needed. active Not Available Not Available No t Available carvedilol 3.125 mg tablet Take 1 tablet twice a day by oral route. 09/16 completed Not Available Not Available Not Available levothyrox ine 25 mcg tablet Take 1 tablet every day by oral route. 2023 active Not Available Not Available Not Avai lable carbamazep ine 100 mg chewable tablet CHEW 1 TABLET TWICE A DAY BY ORAL ROUTE. active Not Available Not Available No t Available carbidopa 25 mg-levodop a 100 mg tablet Take 1 tablet 3 times a day by oral route. 2023 active Not Available Not Available Not Avai lable artificial tears (hypromell ose) 0.3 % eye drops Apply 2 drops twice a day by ophthalmi c route. active Not Available Not Available No t Available Flonase Allergy Relief 50 mcg/actuat ion nasal spray,susp ension [employer] 2 sprays every day by intranasa l route. active Not Available Not Available No t Available Emgality 120 mg/mL subcutaneo us syringe Inject 120 mg every month by subcutane ous route. active Not Available Not Available Not Available Metamucil (with sugar) 3 gram/7 gram oral powder Take 1 tbsp every day by oral route. active Not Available Not Available No t Available Vitals Date Recorded Body height Heart rate Body temperature Respiratory rate Oxygen saturation Oxygen saturation in Arterial blood by Pulse oximetry Body mass index (BMI) Body weight Systolic And Diastolic Provider Name and Address Organization Details Last Updated DateTime 4 154.94 cm 58 /min 98.7 [degF] 18 /min 97 % 97 % 27.6 kg/m2 45163.2 g 113/51 mm[Hg] [place] [address] [place], [address], [place] - [facility] 4 13:24:35 Date Recorded Body height Heart rate Body temperature Respiratory rate Oxygen saturation Oxygen saturation in Arterial blood by Pulse oximetry Body mass index (BMI) Body weight Systolic And Diastolic Provider Name and Address Organization Details Last Updated DateTime 4 154.94 cm 48 /min 98.2 [degF] 18 /min 98 % 98 % 27.3 kg/m2 21852.4 6 g 112/54 mm[Hg] [place] [address] [place], [address], [place] - [facility] 4 12:52:09 Date Recorded Body height Heart rate Body temperature Respiratory rate Oxygen saturation Oxygen saturation in Arterial blood by Pulse oximetry Body mass index (BMI) Body weight Systolic And Diastolic Provider Name and Address Organization Details Last Updated DateTime 4 154.94 cm 55 /min 98.2 [degF] 18 /min 94 % 94 % 27.5 kg/m2 94910.9 7 g 141/63 mm[Hg] [place] [address] [place], [address], [place] - [facility] 4 12:28:01 Date Recorded Body height Heart rate Body temperature Oxygen saturation Oxygen saturation in Arterial blood by Pulse oximetry Body mass index (BMI) Body weight Respiratory rate Systolic And Diastolic Provider Name and Address Organization Details Last Updated DateTime 4 154.94 cm 53 /min 98.2 [degF] 96 % 96 % 26.6 kg/m2 28017.0 9 g 18 /min 114/49 mm[Hg] [place] [address] [place], [address], [place] - [facility] 4 10:33:53 Date Recorded Body height Heart rate Body temperature Respiratory rate Oxygen saturation Oxygen saturation in Arterial blood by Pulse oximetry Body mass index (BMI) Body weight Systolic And Diastolic Provider Name and Address Organization Details Last Updated DateTime 4 154.94 cm 65 /min 97.8 [degF] 18 /min 97 % 97 % 26.7 kg/m2 01309.6 g 106/50 mm[Hg] Meredith Nath, [address] [employer] [address] [facility], [place], [address], [place] - [facility] 15:53:02 Social History None recorded. Functional Status Question Answer Note LastModified by Organizat ion Details LastModified Time Do you use any illicit or recreational drugs? No Information not available 08/26/2024 What is your level of alcohol consumption? None Information not available 08/26/2024 Mental Status None recorded. Family History Relationship Description Onset Age of this Age Resolved Age Notes LastModified by Organization Details LastModified Time Father Essential hypertension hohms Not available 22:03:22 Mother Malignant tumor of stomach hohms Not available 2023 22:03:31 Sister Malignant neoplasm of lung hohms Not available 2023 22:03:39 Unspecified Relation Malignant tumor of breast hohms Not available 2023 22:03:47 Medical History Condition Response Diabetes Y Anemia Y Headaches Y Hypertension Y Orthostatic Hypotension Y Gynecological HistoryNo gynecological history recorded. Obstetrics History GPAL:G 0 P 0 0 0 0 Past Encounters Encounter ID Performer Location Encounter Start Date Encounter Closed Date Diagnosis/Indication Diagnosis SNOMED-CT Code Diagnosis ICD10 Code Diagnosis Note [id number] Sarah Avery [address] [address] 08/27/2024 07:28:57 09/05/2024 13:39:02 Chronic headache disorder 735538420 G44.89 continue emgality - patient is overdue for her monthly injection which she usually gets on the or - called pharmacy to make sure that medication is reinstated and can be obtained-- did discuss with family possible need to get from her usual outpatient pharmacy and bring into the facility due to cost issuescont inue tegretol for migraine prophylaxi s - serum level is low as she is on very low dose therapy BIDLeonor is followed as an oupatient by Dr. Real - [facility] f/u is scheduled 09/09 Muscle weakness 21963008 M62.81 likely multifacto rial in nature but neurology felt she had some evidence of extrapyram idal syndrome so recommende d trial of sinemetcon tinue therapiesm onitor symptomsou tpatient f/u with neurology as above Essential hypertension 16103466 I10 stable at present - continue amlodipine and coreg Hypothyroidism 10068492 E03.9 recent TSH normal - continue low dose synthroid Orthostati c hypotension 39461428 I95.1 continue midodrinec heck orthostati cs daily x 5 days Hyperlipidemia 88160091 E78.5 presumed stable - continue statin therapy Allergic rhinitis 397698 04 J30.9 the patient takes routine nicole and flonase as an outpatient - discussed potential trial of prn nicole use which she is not agreeable to at this time - recommend further discussion with PCP Diabetes mellitus 291625 09 E11.9 by historythe patient does not take routine medication s related to this or regularly check blood sugarsmost recent Hba1c was 6.2 (06/11/24)wi ll check prn accuchecks Physical deconditioning 8163468785 9102 R68.89 related to advanced age, recent hospitaliz ation, comorbidit iestherapi es have been initiated - will monitor progresssh e will return home upon discharge with and daughterpr n tylenol for paincontin ue ASA only for DVT prophylaxi scathartic s per standing orders [id number] Sarah Avery, DO [address] [address] 08/29/2024 12:16:23 09/05/2024 13:37:43 Constipation 73074540 K59.00 Add Metamucil & Miralax daily. Chronic he adache disorder 162016349 G44.89 Continue Emgality -- Patient is overdue for her monthly injection which she usually gets on the or . Dr. Avery called pharmacy to make sure that medication is reinstated and can be obtained. Dr. Avery did discuss with family possible need to get from her usual outpatient pharmacy and bring into the facility due to cost issues.Con tinue Tegretol for migraine prophylaxi s -- serum level is low as she is on very low dose therapy BID.F/U on 09/[address] Real. Muscle weakness 90803682 M62.81 Likely multifacto rial in nature but neurology felt she had some evidence of extrapyram idal syndrome so recommende d trial of Sinemet.Co ntinue therapies. Monitor symptoms.O utpatient f/u with neurology as above. Essential hypertension 85555813 I10 Stable. Continue Amlodipine and Coreg.Cont inue to trend blood pressures, monitor lytes and renal function, and adjust meds as clinically indicated. Hypothyroidism 07251844 E03.9 Recent TSH normal. Continue low dose Synthroid. Orthostati c hypotension 92448271 I95.1 Stable. Continue Midodrine. Checking orthostati cs daily x 5 days -- lying & sitting only for now. Hyperlipidemia 03727348 E78.5 Presumed stable. Continue statin. Allergic rhinitis 623193 04 J30.9 Takes routine Fexofenadi ne and Flonase as an outpatient . Discussed potential trial of PRN Nicole use, which she is not agreeable to at this time. Will further discuss possible age-adjust ment. Diabetes mellitus 216080 09 E11.9 By history. Does not take routine medication s related to this or regularly check blood sugars.Mos t recent Hba1c on 06/11/24 was 6.2%.Marilyn nue PRN accuchecks . Physical deconditioning 9822044938 9102 R68.89 Related to advanced age, recent hospitaliz ation, comorbidit ies.Therap ies have been initiated - will monitor progress.S he will return home upon discharge with and daughter.C ontinue PRN tylenol for pain.Marilyn nue ASA only for DVT prophylaxi s.Catharti cs per standing orders. [id number] [facility] [address] [address] 09/02/2024 18:23:18 09/04/2024 13:50:19 Constipation 79886992 K59.00 continue Metamucil & Miralax daily. Chronic he adache disorder 598966415 G44.89 Continue Emgality monthlyCon tinue Tegretol as well for migraine prophylaxi s -- serum level is low as she is on very low dose therapy BID.F/U on 09/[address] Real. Muscle weakness 39708338 M62.81 Likely multifacto rial in nature but neurology felt she had some evidence of extrapyram idal syndrome so recommende d trial of Sinemet.Co ntinue therapies. Monitor symptoms.O utpatient f/u with neurology as above. Essential hypertension 91361432 I10 Stable. Continue Amlodipine and Coreg.Cont inue to trend blood pressures, monitor lytes and renal function, and adjust meds as clinically indicated. Hypothyroidism 96162581 E03.9 Recent TSH normal. Continue low dose Synthroid. Orthostati c hypotension 24893935 I95.1 Stable. Continue Midodrine. Orthostati cs completed in sitting and lying x 5 days without significan t drops in pressure Hyperlipidemia 63210368 E78.5 Presumed stable. Continue statin. Allergic rhinitis 553111 04 J30.9 Nicolle takes routine Fexofenadi ne and Flonase as an outpatient . trial decrease in dose of fexofenadi ne to 60 mg daily - ultimately would like to change this to prn Diabetes mellitus 367680 09 E11.9 By history. Does not take routine medication s related to this or regularly check blood sugars.Mos t recent Hba1c on 06/11/24 was 6.2%.Marilyn nue PRN accuchecks . Physical deconditioning 5263671063 9102 R68.89 Related to advanced age, recent hospitaliz ation, comorbidit ies.Therap ies continue - will monitor progress.S he will return home upon discharge with and daughter.C ontinue PRN tylenol for pain.Marilyn nue ASA only for DVT prophylaxi s.Catharti cs per standing orders. [id number] Sarah Avery, [address] [address] 09/04/2024 10:02:16 09/05/2024 13:38:29 Constipation 72296265 K59.00 Improved. Continue Metamucil & Miralax daily. Chronic he adache disorder 599122204 G44.89 Continue Emgality monthly.Co ntinue Tegretol as well for migraine prophylaxi s -- serum level is low as she is on very low dose therapy BID.F/U on 09/[address] Real. Muscle weakness 59501808 M62.81 Likely multifacto rial in nature but neurology felt she had some evidence of extrapyram idal syndrome so recommende d trial of Sinemet.Co ntinue therapies. Monitor symptoms.O utpatient f/u with neurology as above. Essential hypertension 96385582 I10 Stable. Continue Amlodipine and Coreg.Cont inue to trend blood pressures, monitor lytes and renal function, and adjust meds as clinically indicated. Hypothyroidism 72163141 E03.9 Recent TSH normal. Continue low dose Synthroid. Orthostati c hypotension 73629783 I95.1 Stable. Continue Midodrine. Orthostati cs completed in sitting and lying x 5 days without significan t drops in pressure. Hyperlipidemia 11103562 E78.5 Presumed stable. Continue statin. Allergic rhinitis 331401 04 J30.9 Nicolle takes routine Fexofenadi ne and Flonase as an outpatient .Decreased Fexofenadi ne to 60 mg daily -- would ultimately like to change to PRN. Diabetes mellitus 982867 09 E11.9 By history. Does not take routine medication s related to this or regularly check blood sugars.Mos t recent Hba1c on 06/11/24 was 6.2%.Marilyn nue PRN accuchecks . Physical deconditioning 8727018465 9102 R68.89 Related to advanced age, recent hospitaliz ation, comorbidit ies.Therap ies continue - will monitor progress.S he will return home upon discharge with and daughter.C ontinue PRN tylenol for pain.Marilyn nue ASA only for DVT prophylaxi s.Catharti cs per standing orders. [id number] Sarah Avery, [address] [address] 09/09/2024 09:02:30 09/11/2024 15:14:55 Chronic headache disorder 425043948 G44.89 Continue Emgality monthly.Co ntinue Tegretol as well for migraine prophylaxi s -- serum level is low as she is on very low dose therapy BID.F/U on 09/[address] Real. Muscle weakness 13468317 M62.81 Likely multifacto rial in nature but neurology felt she had some evidence of extrapyram idal syndrome so recommende d trial of Sinemet.Co ntinue therapies. Monitor symptoms.O utpatient f/u with neurology as above. Essential hypertension 76060233 I10 Stable. Continue Amlodipine and Coreg (reducing as above).Con tinue to trend blood pressures, monitor lytes and renal function, and adjust meds as clinically indicated. Hypothyroidism 06825646 E03.9 Recent TSH normal. Continue low dose Synthroid. Orthostati c hypotension 77600471 I95.1 Stable. Continue Midodrine. Orthostati cs completed in sitting and lying x 5 days without significan t drops in pressure. Hyperlipidemia 35365404 E78.5 Presumed stable. Continue statin. Constipation 55425352 K5 9.00 Improved. Continue Metamucil & Miralax daily. Allergic rhinitis 833919 04 J30.9 Nicolle takes routine Fexofenadi ne and Flonase as an outpatient .Decreased Fexofenadi ne to 60 mg daily -- would ultimately like to change to PRN. Diabetes mellitus 844960 09 E11.9 By history. Does not take routine medication s related to this or regularly check blood sugars.Mos t recent Hba1c on 06/11/24 was 6.2%.Marilyn nue PRN accuchecks . Physical deconditioning 1744020242 9102 R68.89 Related to advanced age, recent hospitaliz ation, comorbidit ies.Therap ies continue - will monitor progress.S he will return home upon discharge with and daughter.C ontinue PRN tylenol for pain.Marilyn nue ASA only for DVT prophylaxi s.Catharti cs per standing orders. Bradycardia 74753345 R00 .1 HR consistent ly in 50s. Will reduce Carvedilol to 3.125 mg BID with hold parameters . [id number] Sarah Avery DO [address] [address] 09/11/2024 10:12:06 09/15/2024 16:54:16 Bradycardia 84485073 R00.1 HR consistent ly in 50s. Improved with Carvedilol reduction. Monitor closely. Essential hypertension 24229158 I10 Stable. Continue Amlodipine and Coreg (reduced as above).Con tinue to trend blood pressures, monitor lytes and renal function, and adjust meds as clinically indicated. Orthostati c hypotension 03659586 I95.1 Stable. Continue Midodrine. Orthostati cs completed in sitting and lying x 5 days without significan t drops in pressure. Chronic he adache disorder 252733212 G44.89 Continue Emgality monthly.Co ntinue Tegretol as well for migraine prophylaxi s -- serum level is low as she is on very low dose therapy BID.F/U on 09/[address] Real. Muscle weakness 56471969 M62.81 Likely multifacto rial in nature but neurology felt she had some evidence of extrapyram idal syndrome so recommende d trial of Sinemet.Co ntinue therapies. Monitor symptoms.O utpatient f/u with neurology as above. Hypothyroidism 83662509 E03.9 Recent TSH normal. Continue low dose Synthroid. Hyperlipidemia 20241258 E78.5 Presumed stable. Continue statin. Constipation 26748427 K5 9.00 Improved. Continue Metamucil & Miralax daily. Allergic rhinitis 616130 04 J30.9 Nicolle takes routine Fexofenadi ne and Flonase as an outpatient .Decreased Fexofenadi ne to 60 mg daily -- would ultimately like to change to PRN. Diabetes mellitus 217467 09 E11.9 By history. Does not take routine medication s related to this or regularly check blood sugars.Mos t recent Hba1c on 06/11/24 was 6.2%.Marilyn nue PRN accuchecks . Physical deconditioning 1904566270 9102 R68.89 Related to advanced age, recent hospitaliz ation, comorbidit ies.Therap ies continue - will monitor progress.S he will return home upon discharge with and daughter.C ontinue PRN tylenol for pain.Marilyn nue ASA only for DVT prophylaxi s.Catharti cs per standing orders. [id number] Sarah Avery [address] [address] 09/16/2024 09:56:40 09/22/2024 15:18:12 Bradycardia 46937271 R00.1 HR consistent ly in 50s despite dose reduction in Carvedilol dosing. Stop entirely and continue to monitor. Essential hypertension 03912231 I10 Stable. Continue Amlodipine .Stopping Carvedilol as above.Cont inue to trend blood pressures, monitor lytes and renal function, and adjust meds as clinically indicated. Orthostati c hypotension 22844865 I95.1 Stable. Continue Midodrine. Orthostati cs completed in sitting and lying x 5 days without significan t drops in pressure. Chronic he adache disorder 413625118 G44.89 Continue Emgality monthly.Co ntinue Tegretol as well for migraine prophylaxi s -- serum level is low as she is on very low dose therapy BID.F/U on 09/[address] Real. Muscle weakness 15215283 M62.81 Likely multifacto rial in nature but neurology felt she had some evidence of extrapyram idal syndrome so recommende d trial of Sinemet.Co ntinue therapies. Monitor symptoms.O utpatient f/u with neurology as above. Hypothyroidism 86477216 E03.9 Recent TSH normal. Continue low dose Synthroid. Hyperlipidemia 85154561 E78.5 Presumed stable. Continue statin. Constipation 10677394 K5 9.00 Improved. Continue Metamucil & Miralax daily. Allergic rhinitis 161380 04 J30.9 Nicolle takes routine Fexofenadi ne and Flonase as an outpatient .Decreased Fexofenadi ne to 60 mg daily -- would ultimately like to change to PRN. Diabetes mellitus 154429 09 E11.9 By history. Does not take routine medication s related to this or regularly check blood sugars.Mos t recent Hba1c on 06/11/24 was 6.2%.Marilyn nue PRN accuchecks . Physical deconditioning [id number] 9102 R68.89 Related to advanced age, recent hospitaliz ation, comorbidit ies.Therap ies continue - will monitor progress.S he will return home upon discharge with and daughter.C ontinue PRN tylenol for pain.Marilyn nue ASA only for DVT prophylaxi s.Catharti cs per standing orders. Blood in urine [id number] R31.9 Hold ASA x 3 days (resume 09/20), report recurrence of hematuria to us.UA pending from this AM.Labs (CBC, BMP, CRP) in AM. Dysuria 17894074 R30.0 SEE ABOVE... [id number] Sarah Avery DO [facility] [address] [place] [address] 09/19/2024 10:08:01 09/24/2024 14:57:53 Blood in urine [id number] R31.9 Holding ASA x 3 days (resume 09/20), report recurrence of hematuria to us. Per nursing, has not recurred.U rine cx pending from 09/16. Dysuria 73486668 R30.0 SEE ABOVE... Bradycardia [id number] R00 .1 HR consistent ly in 50s despite dose reduction in Carvedilol dosing. Stopped entirely and improved, but HR often 58-62 bpm still.Asym ptomatic. Essential hypertension 70189400 I10 Stable. Continue Amlodipine . Also on Midodrine for orthostasi s.Stopped Carvedilol as above due to bradycardi a.Continue to trend blood pressures, monitor lytes and renal function, and adjust meds as clinically indicated. Orthostati c hypotension 99537361 I95.1 Stable. Continue Midodrine. Orthostati cs completed in sitting and lying x 5 days without significan t drops in pressure. Chronic he adache disorder 908074448 G44.89 Continue Emgality monthly.Co ntinue Tegretol, as well, for migraine prophylaxi s -- serum level is low as she is on very low dose therapy BID.F/U on 09/[address] Real. Muscle weakness 18665638 M62.81 Likely multifacto rial in nature but neurology felt she had some evidence of extrapyram idal syndrome so recommende d trial of Sinemet.Co ntinue therapies. Monitor symptoms.O utpatient f/u with neurology as above. Hypothyroidism 17906826 E03.9 Recent TSH normal. Continue low dose Synthroid. Hyperlipidemia 70646830 E78.5 Presumed stable. Continue statin. Constipation 81315479 K5 9.00 Improved. Continue Metamucil & Miralax daily. Allergic rhinitis 606408 04 J30.9 Stable. Continue Flonase.Vargsa ve stopped Fexofenadi ne without concerns noted. Diabetes mellitus 872430 09 E11.9 By history. Does not take routine medication s related to this or regularly check blood sugars.Mos t recent Hba1c on 06/11/24 was 6.2%.Marilyn nue PRN accuchecks . Physical deconditioning [id number] 9102 R68.89 Related to advanced age, recent hospitaliz ation, comorbidit ies.Therap ies continue - will monitor progress.S he will return home upon discharge with and daughter.C ontinue PRN tylenol for pain.Marilyn nue ASA only for DVT prophylaxi s.Catharti cs per standing orders. [id number] Sarah Avery, [facility] [address] [place] [address] 09/22/2024 09:41:07 09/24/2024 14:58:37 Blood in urine 69758164 R31.9 Held ASA x 3 days (09/20) with resolution .Urine cx grew 70-99,000 Proteus mirabilis, 60-70,000 Enterococc us faecalis, 50-60,000 mixed skin christie -- in the absence of further symptoms, will not treat with antibiotic s. Will reconsider based on tomorrow's labs.Marilyn nue to monitor closely for symptoms. Dysuria 57876429 R30.0 SEE ABOVE... Bradycardia 56980069 R00 .1 HR consistent ly in 50s despite dose reduction in Carvedilol dosing. Stopped entirely and improved, but HR often 58-62 bpm still.Asym ptomatic. Essential hypertension 92400742 I10 Stable. Continue Amlodipine . Also on Midodrine for orthostasi s.Stopped Carvedilol as above due to bradycardi a.Continue to trend blood pressures, monitor lytes and renal function, and adjust meds as clinically indicated. Orthostati c hypotension 74182563 I95.1 Stable. Continue Midodrine. Orthostati cs completed in sitting and lying x 5 days without significan t drops in pressure. Chronic he adache disorder 414018095 G44.89 Continue Emgality monthly.Co ntinue Tegretol, as well, for migraine prophylaxi s -- serum level is low as she is on very low dose therapy BID.F/U on 09/[address] Real. Muscle weakness 39754433 M62.81 Likely multifacto rial in nature but neurology felt she had some evidence of extrapyram idal syndrome so recommende d trial of Sinemet.Co ntinue therapies. Monitor symptoms.O utpatient f/u with neurology as above. Hypothyroidism 96016860 E03.9 Recent TSH normal. Continue low dose Synthroid. Hyperlipidemia 08803899 E78.5 Presumed stable. Continue statin. Constipation 86412131 K5 9.00 Improved. Continue Metamucil & Miralax daily. Allergic rhinitis 691623 04 J30.9 Stable. Continue Flonase & PRN Fexofenadi ne. Diabetes mellitus 773456 09 E11.9 By history. Does not take routine medication s related to this or regularly check blood sugars.Mos t recent Hba1c on 06/11/24 was 6.2%.Marilyn nue PRN accuchecks . Physical deconditioning [id number] 9102 R68.89 Related to advanced age, recent hospitaliz ation, comorbidit ies.Therap ies continue - will monitor progress.S he will return home upon discharge with and daughter.C ontinue PRN tylenol for pain.Marilyn nue ASA only for DVT prophylaxi s.Catharti cs per standing orders. Asymptomat ic bacteriuria 848499560 R82.71 SEE ABOVE... [id number] Sarah Avery, [address] [address] 09/24/2024 09:29:29 10/06/2024 06:24:10 Blood in urine [id number] R31.9 Held ASA x 3 days (09/20) with resolution .Urine cx grew 70-99,000 Proteus mirabilis, 60-70,000 Enterococc us faecalis, 50-60,000 mixed skin christie -- in the absence of further symptoms, did not treat with antibiotic s.Continue to monitor closely for symptoms. Asymptomat ic bacteriuria 079848250 R82.71 SEE ABOVE... Dysuria 47848118 R30.0 SEE ABOVE... Bradycardia 20764820 R00 .1 HR consistent ly in 50s despite dose reduction in Carvedilol dosing. Stopped entirely and improved, but HR often 58-62 bpm still.Asym ptomatic. Essential hypertension 78908154 I10 Stable. Continue Amlodipine . Also on Midodrine for orthostasi s.Stopped Carvedilol as above due to bradycardi a. Orthostati c hypotension 15619133 I95.1 Stable. Continue Midodrine. Orthostati cs completed in sitting and lying x 5 days without significan t drops in pressure. Chronic he adache disorder 161792422 G44.89 Continue Emgality monthly.Co ntinue Tegretol, as well, for migraine prophylaxi s -- serum level is low as she is on very low dose therapy BID.F/U on 09/[address] Real -- f/u as directed. Muscle weakness 02846712 M62.81 Likely multifacto rial in nature but neurology felt she had some evidence of extrapyram idal syndrome so recommende d trial of Sinemet.Co ntinue therapies. Monitor symptoms.O utpatient f/u with neurology as above. Hypothyroidism 42060039 E03.9 Recent TSH normal. Continue low dose Synthroid. Hyperlipidemia 64737324 E78.5 Presumed stable. Continue statin. Constipation 80154073 K5 9.00 Improved. Continue Metamucil & Miralax daily. Allergic rhinitis 585557 04 J30.9 Stable. Continue Flonase & PRN Fexofenadi ne. Diabetes mellitus 214217 09 E11.9 By history. Does not take routine medication s related to this or regularly check blood sugars.Mos t recent Hba1c on 06/11/24 was 6.2%.Marilyn nue PRN accuchecks . Health Concerns Section Related Observation LastModified by Organization Detai ls LastModified Time None Recorded Concern Status LastModified by Organization Details LastModified Time None Recorded Advance Directives Directive None Recorded Payers Insurance Date Sequence Insurance Name Policy Number Policy Greenberg Covered Member ID Greenberg Member ID Guarantor Name 08/26/2024 2 [employer] Nicolle Hernández [id number] Nicolle Hernández 09/24/2024 1 [place] Nicolle Hernández [id number] Nicolle Hernández 08/26/2024 2 [facility] (MEDICARE REPLACEMENT/A DVANTAGE - HMO) Nicolle Hernández [id number] Nicolle Hernández Notes Date Note Type Note Provider Name and Address Organization Details Recorded Time 09/11/2024 text/html F/U migraine, weakness, chest pressure, severe cervical spinal stenosis, and chronic medical conditions.--- 4The patient is lying in bed this afternoon. She is a fair historian. Family is at the bedside. They are worried that she has not been given her monthly emgality shot since admission - discussed with nursing and the order appears to have been discontinued on admission here. The shot is overdue as she usually gets this on the or of each month. The patient currently denies having a headache and seems to be tolerating new meds without difficulty or concern. She remains weak - more so on the left side than the right. She has some chronic arthritis pain to the shoulder and LE. No nursing concerns.---08/29/24L david is seated in her w/c in her room with her son Dean at her side. She is a fair historian, denies any concerns beyond BLE weakness and [R] knee OA pain that is chronic in nature. She does not desire anything additional for her OA pain and tells me she feels it is being well-controlled overall, only it is slowing her progress with therapy. She believes her last BM was sometime last week. Nursing confirms she has not had a BM since arrival to this facility and the hospital noted her last BM was 03/24. Nicolle tells me she typically takes Metamucil as OP and would like this started. She is without GI symptoms at present. VSS. Staff is without concerns otherwise.---09/02/24 Nicolle is sitting up in her bedside chair today. Her is sitting at her side. She is discouraged as she is still not able to walk with therapy. She generally is very weak but denies significant headaches or pain today. Her constipation is improved after resuming metamucil. No new complaint or concerns. No nursing concerns.---09/04/24L david is seated in her room with her son by her bedside. She is without concerns today and denies any pain. She reports good but slow progress with therapy. She notes her headaches have been improving in frequency and severity. She notes her last headache was yesterday and resolved shortly. VSS. Staff is without concerns.---09/09/24Lu jeromy is seated in her w/c in her room with her son by her side. She is without concerns or pain today. She is noted to have a dry persistent cough and her son notes she must have had a piece of dry toast catch in the back of her throat. Her lungs are CTA and her oral examination is unremarkable. She is able to clear it with liquid but continues with a dry, nonproductive cough. I notify ST on the floor, who will assess her. She otherwise appears to be doing well. VSS except HR consistently in 50s. Staff is without concerns today.---09/11/24Lucil nadege is seated in her room, her son by her side. She is without concerns today or reports of pain. She tells me she had a frontal headache yesterday that self-resolved and was mild in nature. She cannot list any exacerbating or alleviating factors. VSS -- HRs appear improved. Staff is without concerns. Meredith Nath, ERIN [id number] [address] [facility], [place], [address], [place] - [facility] 09/11/2024 13:35:52 09/16/2024 text/html F/U migraine, weakness, chest pressure, severe cervical spinal stenosis, and chronic medical conditions.--- 4The patient is lying in bed this afternoon. She is a fair historian. Family is at the bedside. They are worried that she has not been given her monthly emgality shot since admission - discussed with nursing and the order appears to have been discontinued on admission here. The shot is overdue as she usually gets this on the or of each month. The patient currently denies having a headache and seems to be tolerating new meds without difficulty or concern. She remains weak - more so on the left side than the right. She has some chronic arthritis pain to the shoulder and LE. No nursing concerns.---08/29/24L david is seated in her w/c in her room with her son Dean at her side. She is a fair historian, denies any concerns beyond BLE weakness and [R] knee OA pain that is chronic in nature. She does not desire anything additional for her OA pain and tells me she feels it is being well-controlled overall, only it is slowing her progress with therapy. She believes her last BM was sometime last week. Nursing confirms she has not had a BM since arrival to this facility and the hospital noted her last BM was 03/24. Nicolle tells me she typically takes Metamucil as OP and would like this started. She is without GI symptoms at present. VSS. Staff is without concerns otherwise.---09/02/24 Nicolle is sitting up in her bedside chair today. Her is sitting at her side. She is discouraged as she is still not able to walk with therapy. She generally is very weak but denies significant headaches or pain today. Her constipation is improved after resuming metamucil. No new complaint or concerns. No nursing concerns.---09/04/24L david is seated in her room with her son by her bedside. She is without concerns today and denies any pain. She reports good but slow progress with therapy. She notes her headaches have been improving in frequency and severity. She notes her last headache was yesterday and resolved shortly. VSS. Staff is without concerns.---09/09/24Lu jeromy is seated in her w/c in her room with her son by her side. She is without concerns or pain today. She is noted to have a dry persistent cough and her son notes she must have had a piece of dry toast catch in the back of her throat. Her lungs are CTA and her oral examination is unremarkable. She is able to clear it with liquid but continues with a dry, nonproductive cough. I notify ST on the floor, who will assess her. She otherwise appears to be doing well. VSS except HR consistently in 50s. Staff is without concerns today.---09/11/24Lucbonilla light is seated in her room, her son by her side. She is without concerns today or reports of pain. She tells me she had a frontal headache yesterday that self-resolved and was mild in nature. She cannot list any exacerbating or alleviating factors. VSS -- HRs appear improved. Staff is without concerns.---09/16/24L david is seated in her recliner, comfortable, without concerns or pain today. Nursing notes that she reported faint hematuria, odorous urine, and dysuria starting yesterday. She is without abd/flank pain, chills, fever, etc. UA has been collected and picked up by lab this morning. VSS except HRs often remain in 50s despite dose reduction of Carvedilol. She is asymptomatic. Staff is without concerns today. Per therapy notes: Conducted gait training with rollator ~5' Min to Mod A of 1 for rythmic wt shifting for LE advancement. .. Sit/stand to FWW Chan of 1 very slow transition. Standing at sidebar with cues for flexed posture. Meredith Nath, ERIN [id number] [facility], [place], [address], [place] - [facility] 09/16/2024 13:10:06 09/19/2024 text/html F/U migraine, weakness, chest pressure, severe cervical spinal stenosis, and chronic medical conditions.--- 4The patient is lying in bed this afternoon. She is a fair historian. Family is at the bedside. They are worried that she has not been given her monthly emgality shot since admission - discussed with nursing and the order appears to have been discontinued on admission here. The shot is overdue as she usually gets this on the or of each month. The patient currently denies having a headache and seems to be tolerating new meds without difficulty or concern. She remains weak - more so on the left side than the right. She has some chronic arthritis pain to the shoulder and LE. No nursing concerns.---08/29/24L david is seated in her w/c in her room with her son Dean at her side. She is a fair historian, denies any concerns beyond BLE weakness and [R] knee OA pain that is chronic in nature. She does not desire anything additional for her OA pain and tells me she feels it is being well-controlled overall, only it is slowing her progress with therapy. She believes her last BM was sometime last week. Nursing confirms she has not had a BM since arrival to this facility and the hospital noted her last BM was 03/24. Nicolle tells me she typically takes Metamucil as OP and would like this started. She is without GI symptoms at present. VSS. Staff is without concerns otherwise.---09/02/24 Nicolle is sitting up in her bedside chair today. Her is sitting at her side. She is discouraged as she is still not able to walk with therapy. She generally is very weak but denies significant headaches or pain today. Her constipation is improved after resuming metamucil. No new complaint or concerns. No nursing concerns.---09/04/24L david is seated in her room with her son by her bedside. She is without concerns today and denies any pain. She reports good but slow progress with therapy. She notes her headaches have been improving in frequency and severity. She notes her last headache was yesterday and resolved shortly. VSS. Staff is without concerns.---09/09/24Lu jeromy is seated in her w/c in her room with her son by her side. She is without concerns or pain today. She is noted to have a dry persistent cough and her son notes she must have had a piece of dry toast catch in the back of her throat. Her lungs are CTA and her oral examination is unremarkable. She is able to clear it with liquid but continues with a dry, nonproductive cough. I notify ST on the floor, who will assess her. She otherwise appears to be doing well. VSS except HR consistently in 50s. Staff is without concerns today.---09/11/24Lucbonilla light is seated in her room, her son by her side. She is without concerns today or reports of pain. She tells me she had a frontal headache yesterday that self-resolved and was mild in nature. She cannot list any exacerbating or alleviating factors. VSS -- HRs appear improved. Staff is without concerns.---09/16/24L david is seated in her recliner, comfortable, without concerns or pain today. Nursing notes that she reported faint hematuria, odorous urine, and dysuria starting yesterday. She is without abd/flank pain, chills, fever, etc. UA has been collected and picked up by lab this morning. VSS except HRs often remain in 50s despite dose reduction of Carvedilol. She is asymptomatic. Staff is without concerns today. Per therapy notes: Conducted gait training with rollator ~5' Min to Mod A of 1 for rythmic wt shifting for LE advancement. .. Sit/stand to FWW Chan of 1 very slow transition. Standing at sidebar with cues for flexed posture.---09/19/24L david is seated in the therapy gym, resting between sessions. She is a fair historian, denies concerns or pain today. She denies any symptoms at present. VSS. HRs have improved with cessation of Carvedilol, still remain on low-end, 55-62 bpm. Staff denies any recurrence of hematuria. Her urine cx remains pending. Staff is otherwise without concerns. Meredith Nath, ERIN [id number] [facility], [place], [address], [place] [facility] 09/19/2024 12:35:14 09/22/2024 text/html F/U migraine, weakness, chest pressure, severe cervical spinal stenosis, and chronic medical conditions.--- 4The patient is lying in bed this afternoon. She is a fair historian. Family is at the bedside. They are worried that she has not been given her monthly emgality shot since admission - discussed with nursing and the order appears to have been discontinued on admission here. The shot is overdue as she usually gets this on the or of each month. The patient currently denies having a headache and seems to be tolerating new meds without difficulty or concern. She remains weak - more so on the left side than the right. She has some chronic arthritis pain to the shoulder and LE. No nursing concerns.---08/29/24L david is seated in her w/c in her room with her son Dean at her side. She is a fair historian, denies any concerns beyond BLE weakness and [R] knee OA pain that is chronic in nature. She does not desire anything additional for her OA pain and tells me she feels it is being well-controlled overall, only it is slowing her progress with therapy. She believes her last BM was sometime last week. Nursing confirms she has not had a BM since arrival to this facility and the hospital noted her last BM was 03/24. Nicolle tells me she typically takes Metamucil as OP and would like this started. She is without GI symptoms at present. VSS. Staff is without concerns otherwise.---09/02/24 Nicolle is sitting up in her bedside chair today. Her is sitting at her side. She is discouraged as she is still not able to walk with therapy. She generally is very weak but denies significant headaches or pain today. Her constipation is improved after resuming metamucil. No new complaint or concerns. No nursing concerns.---09/04/24L david is seated in her room with her son by her bedside. She is without concerns today and denies any pain. She reports good but slow progress with therapy. She notes her headaches have been improving in frequency and severity. She notes her last headache was yesterday and resolved shortly. VSS. Staff is without concerns.---09/09/24Natividad pinzon is seated in her w/c in her room with her son by her side. She is without concerns or pain today. She is noted to have a dry persistent cough and her son notes she must have had a piece of dry toast catch in the back of her throat. Her lungs are CTA and her oral examination is unremarkable. She is able to clear it with liquid but continues with a dry, nonproductive cough. I notify ST on the floor, who will assess her. She otherwise appears to be doing well. VSS except HR consistently in 50s. Staff is without concerns today.---09/11/24Lucbonilla light is seated in her room, her son by her side. She is without concerns today or reports of pain. She tells me she had a frontal headache yesterday that self-resolved and was mild in nature. She cannot list any exacerbating or alleviating factors. VSS -- HRs appear improved. Staff is without concerns.---09/16/24L david is seated in her recliner, comfortable, without concerns or pain today. Nursing notes that she reported faint hematuria, odorous urine, and dysuria starting yesterday. She is without abd/flank pain, chills, fever, etc. UA has been collected and picked up by lab this morning. VSS except HRs often remain in 50s despite dose reduction of Carvedilol. She is asymptomatic. Staff is without concerns today. Per therapy notes: Conducted gait training with rollator ~5' Min to Mod A of 1 for rythmic wt shifting for LE advancement. .. Sit/stand to FWW Chan of 1 very slow transition. Standing at sidebar with cues for flexed posture.---09/19/24L david is seated in the therapy gym, resting between sessions. She is a fair historian, denies concerns or pain today. She denies any symptoms at present. VSS. HRs have improved with cessation of Carvedilol, still remain on low-end, 55-62 bpm. Staff denies any recurrence of hematuria. Her urine cx remains pending. Staff is otherwise without concerns.---09/22/24L david is resting in her recliner in her room, a fair historian, no concerns or pain today. She denies any symptoms including any further dysuria. She does tell me she has a migrated IUD device that has been in place since the but has never caused her problems so she has not had it surgically-removed. She denies any vaginal discharge or recent concerns with this. VSS. Staff is without concerns today. Per LUCILLE, family is looking into LTC facilities in [place], [place] and LUCILLE is assisting with this. Meredith Nath, ERIN [id number] [address] [facility], [place], [address], [place] [facility] 09/22/2024 13:58:53 09/24/2024 text/html 88 y.o. y/o femalexandra le with PMH of chronic headache, DM2, HTN, anemia of chronic disease and orthostatic hypotension admitted to [place] for post acute rehab subsequent to an inpatient stay at [facility] 08/22-08/26/2024 with weakness and a headache. The patient reported a headache which began two nights prior to admission and was accompanied by some shoulder pain and possibly some chest discomfort. The headache was throbbing in quality, bilateral, and radiating behind her right eye. She had associated weakness, left sided greater than right, and an inability to get out of bed. She was also noted by family to have a new left foot drop. She denied any vision changes, fevers, rash, paresthesias or AMS. Her chest pain was a pressure-like discomfort lasting only for about an hour or so. In the ER, VS were stable. Labs = sodium 134, Cr at baseline, Hgb 11.7. CT head without acute finding. Infectious w/u was negative: CXR showed atelectasis, UA did not reflex to culture. She was treated with IV benadryl, IV toradol and compazine for her migraine with improvement. Neurology was consulted and recommended carbamazepine for migraine prophylaxis with outpatient neurology follow up. They also recommended a trial of sinemet related to weakness. She did undergo an MRI of the C spine which did not show severe canal stenosis.New medications: Sinemet and tegretolDosage changes: NONEDiscontinued medications: Geovany Red is POACode status is DNR ---08/27/24The patient is lying in bed this afternoon. She is a fair historian. Family is at the bedside. They are worried that she has not been given her monthly emgality shot since admission - discussed with nursing and the order appears to have been discontinued on admission here. The shot is overdue as she usually gets this on the or of each month. The patient currently denies having a headache and seems to be tolerating new meds without difficulty or concern. She remains weak - more so on the left side than the right. She has some chronic arthritis pain to the shoulder and LE. No nursing concerns.---08/29/24L david is seated in her w/c in her room with her son Dean at her side. She is a fair historian, denies any concerns beyond BLE weakness and [R] knee OA pain that is chronic in nature. She does not desire anything additional for her OA pain and tells me she feels it is being well-controlled overall, only it is slowing her progress with therapy. She believes her last BM was sometime last week. Nursing confirms she has not had a BM since arrival to this facility and the hospital noted her last BM was 03/24. Nicolle tells me she typically takes Metamucil as OP and would like this started. She is without GI symptoms at present. VSS. Staff is without concerns otherwise.---09/02/24 Nicolle is sitting up in her bedside chair today. Her is sitting at her side. She is discouraged as she is still not able to walk with therapy. She generally is very weak but denies significant headaches or pain today. Her constipation is improved after resuming metamucil. No new complaint or concerns. No nursing concerns.---09/04/24L david is seated in her room with her son by her bedside. She is without concerns today and denies any pain. She reports good but slow progress with therapy. She notes her headaches have been improving in frequency and severity. She notes her last headache was yesterday and resolved shortly. VSS. Staff is without concerns.---09/09/24Natividad pinzon is seated in her w/c in her room with her son by her side. She is without concerns or pain today. She is noted to have a dry persistent cough and her son notes she must have had a piece of dry toast catch in the back of her throat. Her lungs are CTA and her oral examination is unremarkable. She is able to clear it with liquid but continues with a dry, nonproductive cough. I notify ST on the floor, who will assess her. She otherwise appears to be doing well. VSS except HR consistently in 50s. Staff is without concerns today.---09/11/24Lucil nadege is seated in her room, her son by her side. She is without concerns today or reports of pain. She tells me she had a frontal headache yesterday that self-resolved and was mild in nature. She cannot list any exacerbating or alleviating factors. VSS -- HRs appear improved. Staff is without concerns.---09/16/24L david is seated in her recliner, comfortable, without concerns or pain today. Nursing notes that she reported faint hematuria, odorous urine, and dysuria starting yesterday. She is without abd/flank pain, chills, fever, etc. UA has been collected and picked up by lab this morning. VSS except HRs often remain in 50s despite dose reduction of Carvedilol. She is asymptomatic. Staff is without concerns today. Per therapy notes: Conducted gait training with rollator ~5' Min to Mod A of 1 for rythmic wt shifting for LE advancement. .. Sit/stand to FWW Chan of 1 very slow transition. Standing at sidebar with cues for flexed posture.---09/19/24L david is seated in the therapy gym, resting between sessions. She is a fair historian, denies concerns or pain today. She denies any symptoms at present. VSS. HRs have improved with cessation of Carvedilol, still remain on low-end, 55-62 bpm. Staff denies any recurrence of hematuria. Her urine cx remains pending. Staff is otherwise without concerns.---09/22/24L david is resting in her recliner in her room, a fair historian, no concerns or pain today. She denies any symptoms including any further dysuria. She does tell me she has a migrated IUD device that has been in place since the 1970s but has never caused her problems so she has not had it surgically-removed. She denies any vaginal discharge or recent concerns with this. VSS. Staff is without concerns today. Per LUCILLE, family is looking into LTC facilities in [place], [place] and SW is assisting with this.---09/24/24Lucil nadege is seated in her recliner in her room, family at her side. She is doing fairly well, tells me she will be discharging home with her on Sunday, rather than being placed in LTC. Per SW, was not satisfied with LTC facilities he toured so he has acquired a [id number] lift as well as other necessary equipment to care for her. VSS. Staff is without concerns today. Nicolle tells me she remains having periodic headaches about once a day that she describes as frontal and without aura. She feels these are overall well-managed at present. Meredith Nath, ERIN [id number] [facility], [place], [address], [place] [facility] 09/24/2024 16:03:17 OBGyn Episode No OBEpisode recorded.
--- OUTSIDE RECORDS SUMMARY | 2025-05-13 15:10 | XMS_ITS ---
Author Name Auto Generated, Auto Generated Organization [facility] Address [address] [place] [address] Phone [phone] Care Team Providers Care Logging Assistant Name Role Phone Meredith Nath Unavailable MichaelSarah torres Unavailable Functional Status No Results Mental Status No Results Allergies and Intolerances Name Onset Date Reaction Severity Sulfa (Sulfonamide Antibiotics) (Allergy) Sun 00:45:00 EST 2023 penicillin (Allergy) SunNov 26 00:45:00 EST codeine (Allergy) SunNov 26 00:45:00 EST 2023 Encounters Program Name Primary Diagnosis Admission Date/Time Dis charge Date/Time Bulk Intake Worker Care Facility [facility] SunAug 26 12:20:00 EDT 2023Sep 26 04:45:00 EST 2023 Immunizations Name Dates Status TST-PPD intradermal SunAug 29 01:00:00 EDT 2023 Completed TST-PPD intradermal SunSep 05 01:00:00 EDT 2023 Completed TST-PPD intradermal SunSep 01 01:00:00 EDT 2023 Completed TST-PPD intradermal SunSep 08 01:00:00 EST 2023 Completed Medications Medication Directions Start Date End Date fexofenadine 60 mg tablet 1 tab TABLET O ral PRN 1 Time Daily Indication: Allergies SunSep 22 14:17:00 EST 2023Sep 26 01:00:00 EST 2023 aspirin 81 mg tablet,delayed release 1 tab TABLET, DELAYED RELEASE (ENTERIC COATED) Oral 1 Time Daily Indication: Heart Health SunSep 20 09:00:00 EST 2023Sep 26 01:00:00 EST 2023 carvediloL 3.125 mg tablet 1 tablet TABLET Oral 2 Times Daily Indication: A-fibHOLD IF PULSE IS LESS THAN 55 BP and/or Pulse Hold: Vital Signs (Pulse) < 55 Hold;. SunSep 09 17:00:00 EST 2023Sep 16 13:18:00 EST 2023 fexofenadine 60 mg tablet 1 tab TABLET O ral 1 Time Daily Indication: Allergies SunSep 02 19:05:00 EDT 2023Sep 22 14:18:00 EST 2023 MetamuciL 3.4 gram/5.4 gram oral powder 1 tbsp POWDER (GRAM) Oral 1 Time Daily Indication: . . SunAug 30 09:00:00 EDT 2023Sep 26 01:00:00 EST 2023 polyethylene glycoL 3350 17 gram/dose oral powder as directed POWDER (GRAM) Oral 1 Time Daily Indication: . constipation SunAug 30 09:00:00 EDT 2023Sep 26 01:00:00 EST 2023 TubersoL 5 tub. unit/0.1 mL intradermal injection solution 0.1 ml VIAL (ML) Intradermal 1 Time Weekly for 2 Weeks Indication: Rule out TB 1st injection on admission, then one week after. Read between 48 and 72 hours SunAug 28 15:30:00 EDT 2023Sep 11 15:29:00 EST 2023 TubersoL 5 tub. unit/0.1 mL intradermal injection solution Read Results VIAL (ML) Other 1 Time Weekly for 2 Weeks Indication: Rule outTB Read results between 48-72 hours after 1st and 2nd (1 week apart). If positive do chest x-ray. SunAug 28 15:30:00 EDT 2023Sep 11 15:29:00 EST 2023 Emgality 120 mg/mL subcutaneous syringe 1 syringe SYRINGE (ML) Subcutaneous 1 Time Monthly Indication: migraine SunAug 27 19:00:00 EDT 2023Sep 26 01:00:00 EST 2023 acetaminophen 500 mg tablet 1 tab TABLET Oral PRN Every 4 Hours Indication: Pain SunAug 26 14:22:00 EDT 2023Sep 26 01:00:00 EST 2023 amLODIPine 2.5 mg tablet 1 tab TABLET Or al 1 Time Daily Indication: BP SunAug 26 14:23:00 EDT 2023Sep 26 01:00:00 EST 2023 artificial tears(npudcsg-jnomlpmp-rm ycern) 0.1 %-0.3 %-0.2 % eye drops 1 drop DROPS Both Eyes 2 Times Daily Indication: Dry eye SunAug 26 14:24:00 EDT 2023Sep 26 01:00:00 EST 2023 aspirin 81 mg tablet,delayed release 1 tab TABLET, DELAYED RELEASE (ENTERIC COATED) Oral 1 Time Daily Indication: Heart Health SunAug 26 14:30:00 EDT 2023Sep 16 13:18:00 EST 2023 carBAMazepine 100 mg chewable tablet 1 tab TABLET,CHEWABLE Oral 2 Times Daily Indication: CORTES SunAug 26 14:31:00 EDT 2023Sep 26 01:00:00 EST 2023 carbidopa 25 mg-levodopa 100 mg tablet 1 tab TABLET Oral 3 Times Daily Indication: Tremors SunAug 26 14:32:00 EDT 2023Sep 26 01:00:00 EST 2023 carvediloL 6.25 mg tablet 1 tab TABLET O ral 2 Times Daily Indication: HTN SunAug 26 14:30:00 EDT 2023Sep 09 16:30:00 EST 2023 Emgality 120 mg/mL subcutaneous syringe 1 syringe SYRINGE (ML) Subcutaneous 1 Time Monthly Indication: migraine SunAug 26 14:35:00 EDT 2023Aug 26 14:37:00 EDT 2023 fexofenadine 180 mg tablet 1 tab TABLET Oral 1 Time Daily Indication: Allergies SunAug 26 14:37:00 EDT 2023Sep 02 19:06:00 EDT 2023 fluticasone propionate 50 mcg/actuation nasal spray,suspension 2 spray SPRAY, SUSPENSION Intranasal 1 Time Daily Indication: Allergies SunAug 26 15:40:00 EDT 2023Sep 26 01:00:00 EST 2023 levothyroxine 25 mcg tablet 1 tab TABLET Oral 1 Time Daily Indication: Thyroid SunAug 26 15:00:00 EDT 2023Sep 26 01:00:00 EST 2023 midodrine 5 mg tablet 1 tab TABLET Oral 2 Times Daily Indication: hypotension SunAug 26 14:43:00 EDT 2023Sep 26 01:00:00 EST 2023 multivitamin tablet 1 tab TABLET Oral 1 Time Daily Indication: Supplement SunAug 26 15:44:00 EDT 2023Sep 26 01:00:00 EST 2023 simvastatin 10 mg tablet 1 tab TABLET Or al 1 Time Daily Indication: HLD SunAug 26 14:45:00 EDT 2023Sep 26 01:00:00 EST 2023 furosemide 40 mg tablet 0.5 TABLET Oral 1 Time Daily Indication: Edema SunMay 08 01:30:00 EDT 2023May 08 02:59:00 EDT 2023 furosemide 20 mg tablet 1 tab TABLET Ora l 1 Time Daily Indication: edema SunMay 08 02:00:00 EDT 2023May 12 01:00:00 EDT 2023 acetaminophen 500 mg tablet 1 tablet TABLET Oral PRN Every 4 Hours Maximum dose is 3gm in 24hours. SunMay 06 15:30:00 EDT 2023May 12 01:00:00 EDT 2023 furosemide 40 mg tablet 1 tablet TABLET Oral 1 Time Daily Indication: Edema SunApr 23 11:47:00 EDT 2023May 08 02:59:00 EDT 2023 lidocaine 5 % topical patch 1 patch ADHESIVE PATCH, MEDICATED Topical 2 Times Daily Indication: Apply 1 patch to affected area BID SunApr 21 12:58:00 EDT 2023May 12 01:00:00 EDT 2023 TubersoL 5 tub. unit/0.1 mL intradermal injection solution 0.1 ml VIAL (ML) Intradermal 1 Time Weekly for 2 Weeks Indication: Rule out TB 1st injection on admission, then one week after. Read between 48 and 72 hours SunApr 18 11:00:00 EDT 2023May 02 10:59:00 EDT 2023 TubersoL 5 tub. unit/0.1 mL intradermal injection solution Read Results VIAL (ML) Other 1 Time Weekly for 2 Weeks Indication: Rule out TB Read results between 48-72 hours after 1st and 2nd (1 week apart). If positive do chest x-ray. SunApr 18 11:00:00 EDT 2023May 02 10:59:00 EDT 2023 acetaminophen 500 mg tablet 1 tablet TABLET Oral PRN Every 4 Hours Indication: Pain SunApr 15 16:00:00 EDT 2023May 06 15:41:00 EDT 2023 amitriptyline 25 mg tablet 1 tablet TABLET Oral 1 Time Daily for 7 Days Indication: Depresion SunApr 15 07:00:00 EDT 2023Apr 22 06:59:00 EDT 2023 amitriptyline 25 mg tablet 2 tablets TABLET Oral 1 Time Daily Indication: Depression SunApr 22 07:00:00 EDT 2023May 07 14:21:00 EDT 2023 amLODIPine 2.5 mg tablet 1 tablet TABLET Oral 1 Time Daily Indication: HTN SunApr 15 16:00:00 EDT 2023May 12 01:00:00 EDT 2023 Artificial Tears (PF) drops in a dropperette 0.3% 1 drop DROPPERETTE, SINGLE-USE DROP DISPENSER Both Eyes PRN 2 Times Daily Indication: Dry Eyes SunApr 15 15:00:00 EDT 2023May 12 01:00:00 EDT 2023 aspirin 81 mg tablet,delayed release 1 tablet TABLET, DELAYED RELEASE (ENTERIC COATED) Oral 1 Time Daily Indication: DVT proph SunApr 15 16:00:00 EDT 2023May 12 01:00:00 EDT 2023 carvediloL 6.25 mg tablet 1 tablet TABLE T Oral 2 Times Daily Indication: HTN SunApr 15 17:00:00 EDT 2023May 12 01:00:00 EDT 2023 fexofenadine 180 mg tablet 1 tablet TABLET Oral 1 Time Daily Indication: Allergies SunApr 15 16:00:00 EDT 2023May 12 01:00:00 EDT 2023 fluticasone propionate 50 mcg/actuation nasal spray,suspension 2 sprays SPRAY, SUSPENSION Intranasal 1 Time Daily Indication: Allergies SunApr 15 15:00:00 EDT 2023May 12 01:00:00 EDT 2023 levothyroxine 25 mcg tablet 1 tablet TABLET Oral 1 Time Daily Indication: Hypothyroidism SunApr 15 17:00:00 EDT 2023May 12 01:00:00 EDT 2023 midodrine 5 mg tablet 1 tablet TABLET Or al 2 Times Daily Indication: Orthostatic hypotensionTake before breakfast & dinner SunApr 15 17:00:00 EDT 2023May 12 01:00:00 EDT 2023 multivitamin tablet 1 tablet TABLET Oral 1 Time Daily Indication: Supplement SunApr 15 15:00:00 EDT 2023May 12 01:00:00 EDT 2023 simvastatin 10 mg tablet 1 tablet TABLET Oral 1 Time Daily Indication: HLD SunApr 15 17:00:00 EDT 2023May 12 01:00:00 EDT 2023 midodrine 5 mg tablet 5 mg TABLET Oral 2 Times Daily Indication: HypotensionTwice daily before breakfast and dinner SunNov 28 15:23:00 2023Nov 28 15:24:00 EST 2023 TubersoL 5 tub. unit/0.1 mL intradermal injection solution 0.1 ml VIAL (ML) Intradermal 1 Time Weekly for 2 Weeks Indication: TB test 1st injection on admission, then one week after. Read between 48 and 72 hours SunNov 26 13:00:00 EST 2023Dec 10 12:59:00 EST 2023 TubersoL 5 tub. unit/0.1 mL intradermal injection solution Read Results VIAL (ML) Other 1 Time Weekly for 2 Weeks Indication: TB test Read results between 48-72 hours after 1st and 2nd (1 week apart). If positive do chest x-ray. SunNov 26 09:00:00 EST 2023Dec 10 08:59:00 EST 2023 MetamuciL 3.4 gram/5.4 gram oral powder 1 pack POWDER (GRAM) Oral 1 Time Daily Indication: Constipation SunNov 26 18:00:00 EST 2023Dec 16:00: EST 2023 acetaminophen 500 mg tablet 500 mg TABLET Oral PRN Every 4 Hours Indication: Pain SunNov 25:30:2023Dec 16:00:00 EST 2023 amitriptyline 10 mg tablet 10 mg TABLET Oral 1 Time Daily Indication: Depression SunNov 25:30: EST 2023Dec 16:00: EST 2023 aspirin 81 mg tablet,delayed release 81 mg TABLET, DELAYED RELEASE (ENTERIC COATED) Oral 1 Time Daily Indication: Blood thinner SunNov 25:30:00 EST 2023Dec 16:00: EST 2023 carvediloL 6.25 mg tablet 6.25 mg TABLET Oral 2 Times Daily Indication: HTN SunNov 25:30:00 EST 2023Nov 28 15:25:00 2023 fexofenadine 180 mg tablet 180 mg TABLET Oral 1 Time Daily Indication: Seasonal allergies SunNov 25:30:00 2023Dec 16 01:00:00 EST 2023 fluticasone propionate 50 mcg/actuation nasal spray,suspension 2 sprays SPRAY, SUSPENSION Intranasal 1 Time Daily Indication: Sesaonl allergies SunNov 25 19:30:00 2023Dec 16 01:00:00 2023 lidocaine 5 % topical patch 1 patch ADHESIVE PATCH, MEDICATED Topical 2 Times Daily for 10 Days Indication: Pain. On in AM Off in PM SunNov 25 20:00:00 2023Dec 05 19:59:00 EST 2023 midodrine 5 mg tablet 5 mg TABLET Oral 2 Times Daily Indication: HypotensionTwice daily before breakfast and dinner SunNov 25 20:00:00 2023Nov 28 15:24:00 EST 2023 multivitamin tablet 1 tab TABLET Oral 1 Time Daily Indication: Supplement SunNov 25:00:00 2023Dec 16 01:00:00 2023 simvastatin 10 mg tablet 10 mg TABLET Or al 1 Time Daily Indication: High cholesterol SunNov 25:00:00 2023Dec 16 01:00:00 EST 2023 artificial tears(kvmewym-nepdretz-xy ycern) 0.1 %-0.3 %-0.2 % eye drops 1 drop DROPS Both Eyes PRN Indication: Dry eyes One drop to each eye as needed for dry eyes SunNov 26 00:30:00 EST 2023Dec 16 01:00:00 2023 Problems Active Concerns * Hypertensive chronic kidney disease with stage 1 through stage 4 chronic kidney disease, or unspecified chronic kidney disease* Code: * Start Date: SunNov 25 00:00:00 EST 2023 * End Date: * Text: * Type 2 diabetes mellitus with diabetic chronic kidney disease* Code: * Start Date: SunNov 25 00:00:00 EST 2023 * End Date: * Text: * Hypothyroidism, unspecified* Code: * Start Date: SunNov 25 00:00:00 EST 2023 * End Date: * Text: * Orthostatic hypotension* Code: * Start Date: SunNov 25 00:00:00 EST 2023 * End Date: * Text: * Other cervical disc degeneration, unspecified cervical region* Code: * Start Date: SunNov 25 00:00:00 EST 2023 * End Date: * Text: * Type 2 diabetes mellitus with diabetic polyneuropathy* Code: * Start Date: SunNov 25 00:00:00 EST 2023 * End Date: * Text: * Chronic migraine without aura, not intractable, without status migrainosus* Code: * Start Date: SunNov 25 00:00:00 EST 2023 * End Date: * Text: * Pure hypercholesterolemia, unspecified* Code: * Start Date: SunNov 25 00:00:00 EST 2023 * End Date: * Text: * manager terminal (current) use of aspirin* Code: * Start Date: SunNov 25 00:00:00 EST 2023 * End Date: * Text: * Weakness* Code: * Start Date: SunNov 25 00:00:00 EST 2023 * End Date: * Text: * Allergic rhinitis, unspecified* Code: * Start Date: SunNov 25 00:00:00 EST 2023 * End Date: * Text: * Constipation, unspecified* Code: * Start Date: SunNov 25 00:00:00 EST 2023 * End Date: * Text: * Other iron deficiency anemias* Code: * Start Date: SunApr 15 00:00:00 EDT 2023 * End Date: * Text: * Unspecified dementia, unspecified severity, without behavioral disturbance, psychotic disturbance, mood disturbance, and anxiety* Code: * Start Date: SunApr 15 00:00:00 EDT 2023 * End Date: * Text: * History of falling* Code: * Start Date: SunApr 15 00:00:00 EDT 2023 * End Date: * Text: * Chronic kidney disease, stage 3 unspecified* Code: * Start Date: SunApr 15 00:00:00 EDT 2023 * End Date: * Text: * Low back pain, unspecified* Code: * Start Date: SunApr 15 00:00:00 EDT 2023 * End Date: * Text: * Localized edema* Code: * Start Date: SunApr 15 00:00:00 EDT 2023 * End Date: * Text: * Conjunctival hemorrhage, right eye* Code: * Start Date: SunApr 15 00:00:00 EDT 2023 * End Date: * Text: * Anemia in chronic kidney disease* Code: * Start Date: SunAug 26 00:00:00 EDT 2023 * End Date: * Text: * Extrapyramidal and movement disorder, unspecified* Code: * Start Date: SunAug 26 00:00:00 EDT 2023 * End Date: * Text: * Other disorders of optic nerve, not elsewhere classified, unspecified eye* Code: * Start Date: SunAug 26 00:00:00 EDT 2023 * End Date: * Text: * Other symptoms and signs involving the musculoskeletal system* Code: * Start Date: SunAug 26 00:00:00 EDT 2023 * End Date: * Text: * LSS_Falls - Nicolle is at risk for falls/injury asevidenced by: history of falls, cognitivestatus/behavior, vision status, continence,mobility, balance. * Code: * Start Date: SunSep 09 00:00:00 EST 2023 * End Date: * Text: LSS_Falls - Nicolle is at risk for falls/injury asevidenced by: history of falls, cognitivestatus/behavior, vision status, continence,mobility, balance. * LSS_ADLs - Nicolle has ADL selfcare deficit related to decreased mobility and muscle weakness* Code: * Start Date: SunSep 09 00:00:00 EST 2023 * End Date: * Text: LSS_ADLs - Nicolle has ADL selfcare deficit related to decreased mobility and muscle weakness * LSS_Skin Integrity - (Potential Alteration of)- Lucilleis at risk for developing impaired skin integrity.* Code: * Start Date: SunSep 09 00:00:00 EST 2023 * End Date: * Text: LSS_Skin Integrity - (Potential Alteration of)- Lucilleis at risk for developing impaired skin integrity. * LSS_Pain - Nicolle is experiencing pain or is at highrisk for pain.* Code: * Start Date: SunSep 09 00:00:00 EST 2023 * End Date: * Text: LSS_Pain - Nicolle is experiencing pain or is at highrisk for pain. * LSS_Urinary Incontinence1 - Nicolle is occasionallyincontinent.* Code: * Start Date: SunSep 15 00:00:00 EST 2023 * End Date: * Text: LSS_Urinary Incontinence1 - Nicolle is occasionallyincontinent. * LSS_Hyperglycemia/Hypoglycemia - Nicolle is atrisk for complications associated with hyper orhypoglycemia r/t diagnosis of :__DM type 2 .* Code: * Start Date: SunSep 15 00:00:00 EST 2023 * End Date: * Text: LSS_Hyperglycemia/Hypoglycemia - Nicolle is atrisk for complications associated with hyper orhypoglycemia r/t diagnosis of :__DM type 2 . * LSS_Social Services- Nicolle will be involved in discharge planning.* Code: * Start Date: SunSep 03 00:00:00 EDT 2023 * End Date: * Text: LSS_Social Services- Nicolle will be involved in discharge planning. * RAMOSSocial ServicesKandy Valverde has a diagnosis of dementia.* Code: * Start Date: SunSep 03 00:00:00 EDT 2023 * End Date: * Text: RAMOSSocial ServicesKandy Valverde has a diagnosis of dementia. * LSS_Social Services- Nicolle's mobility level is different than prior level due to current medical condition.* Code: * Start Date: SunSep 03 00:00:00 EDT 2023 * End Date: * Text: LSS_Social Services- Nicolle's mobility level is different than prior level due to current medical condition. * REECESMary GraceSocial ServicesKandy Valverde has family/friends who are supportive.* Code: * Start Date: SunSep 03 00:00:00 EDT 2023 * End Date: * Text: REECES_Social ServicesKandy Valverde has family/friends who are supportive. * LSSMary GraceSocial Services- Nicolle will be involved in goal development to the best of his or her ability.* Code: * Start Date: SunSep 03 00:00:00 EDT 2023 * End Date: * Text: LSS_Social Services- Nicolle will be involved in goal development to the best of his or her ability. * LSS_Social ServicesKandy Valverde's wishes will be followed (Advanced Directive/Code Status).* Code: * Start Date: SunSep 03 00:00:00 EDT 2023 * End Date: * Text: LSS_Social ServicesKandy Valverde's wishes will be followed (Advanced Directive/Code Status). * [id number] Nicolle receives a therapeutic diet. (12)* Code: * Start Date: SunSep 03 00:00:00 EDT 2023 * End Date: * Text: [id number] Nicolle receives a therapeutic diet. (12) Resolved Concerns * Problem Other headache syndrome* Code: * Start Date: SunAug 26 00:00:00 EDT 2023 * End Date: SunAug 28 00:00:00 EDT 2023 Vital Signs Vital Sign Measurement Date Systolic Blood Pressure 130.00 mm[Hg] SunSep 26 09:51:35 EST 2023 Diastolic Blood Pressure 53.00 mm[Hg] SunSep 26 09:51:35 EST 2023 Systolic Blood Pressure 130.00 mm[Hg] SunSep 26 09:51:35 EST 2023 Diastolic Blood Pressure 53.00 mm[Hg] SunSep 26 09:51:35 EST 2023 Systolic Blood Pressure 130.00 mm[Hg] SunSep 26 08:50:11 2023 Diastolic Blood Pressure 53.00 mm[Hg] SunSep 26 08:50:11 2023 Pulse Oximetry 96.00 % SunSep 26 08:50 :11 2023 Heart Rate 64.00 /min SunSep 26 08:50 :11 2023 Respiratory rate 18.00 /min SunSep 26 08:5 0:11 2023 Body temperature 97.30 [degF] SunSep 26 08:5 0:11 2023 Systolic Blood Pressure 132.00 mm[Hg] SunSep 25 22:14:49 2023 Diastolic Blood Pressure 58.00 mm[Hg] SunSep 25 22:14:49 2023 Systolic Blood Pressure 132.00 mm[Hg] SunSep 25 22:14:49 2023 Diastolic Blood Pressure 58.00 mm[Hg] SunSep 25 22:14:49 2023 Pulse Oximetry 96.00 % SunSep 25 22:14 :49 2023 Heart Rate 62.00 /min SunSep 25 22:14 :49 EST 2023 Respiratory rate 18.00 /min SunSep 25 22:1 4:49 EST 2023 Body temperature 98.20 [degF] SunSep 25 22:1 4:49 2023 Body weight 142.20 [lb_av] SunSep 25 15:48 :25 2023 Systolic Blood Pressure 137.00 mm[Hg] SunSep 25 10:23:34 2023 Diastolic Blood Pressure 61.00 mm[Hg] SunSep 25 10:23:34 EST 2023 Pulse Oximetry 96.00 % SunSep 25 10:23 :34 EST 2023 Heart Rate 58.00 /min SunSep 25 10:23 :34 EST 2023 Respiratory rate 18.00 /min SunSep 25 10:2 3:34 EST 2023 Body temperature 98.20 [degF] SunSep 25 10:2 3:34 EST 2023 Systolic Blood Pressure 137.00 mm[Hg] SunSep 25 10:11:37 EST 2023 Diastolic Blood Pressure 61.00 mm[Hg] SunSep 25 10:11:37 EST 2023 Systolic Blood Pressure 137.00 mm[Hg] SunSep 25 10:11:37 EST 2023 Diastolic Blood Pressure 61.00 mm[Hg] SunSep 25 10:11:37 2023 Systolic Blood Pressure 146.00 mm[Hg] SunSep 24 21:56:27 2023 Diastolic Blood Pressure 59.00 mm[Hg] SunSep 24 21:56:27 2023 Systolic Blood Pressure 140.00 mm[Hg] SunSep 24 18:02:30 2023 Diastolic Blood Pressure 55.00 mm[Hg] SunSep 24 18:02:30 2023 Pulse Oximetry 97.00 % SunSep 24 18:02 :30 2023 Heart Rate 54.00 /min SunSep 24 18:02 :30 2023 Respiratory rate 18.00 /min SunSep 24 18:0 2:30 2023 Body temperature 98.20 [degF] SunSep 24 18:0 2:30 2023 Body weight 141.30 [lb_av] SunSep 24 11:18 :39 EST 2023 Systolic Blood Pressure 106.00 mm[Hg] SunSep 24 09:32:47 EST 2023 Diastolic Blood Pressure 50.00 mm[Hg] SunSep 24 09:32:47 EST 2023 Systolic Blood Pressure 106.00 mm[Hg] SunSep 24 09:32:47 EST 2023 Diastolic Blood Pressure 50.00 mm[Hg] SunSep 24 09:32:47 2023 Systolic Blood Pressure 106.00 mm[Hg] SunSep 24 09:32:47 2023 Diastolic Blood Pressure 50.00 mm[Hg] SunSep 24 09:32:47 EST 2023 Pulse Oximetry 97.00 % SunSep 24 09:32 :47 EST 2023 Heart Rate 65.00 /min SunSep 24 09:32 :47 EST 2023 Respiratory rate 18.00 /min SunSep 24 09:3 2:47 EST 2023 Body temperature 97.80 [degF] SunSep 24 09:3 2:47 EST 2023 Systolic Blood Pressure 130.00 mm[Hg] SunSep 24 00:25:07 EST 2023 Diastolic Blood Pressure 58.00 mm[Hg] SunSep 24 00:25:07 EST 2023 Pulse Oximetry 97.00 % SunSep 24 00:25 :07 EST 2023 Heart Rate 60.00 /min SunSep 24 00:25 :07 EST 2023 Respiratory rate 18.00 /min SunSep 24 00:2 5:07 EST 2023 Body temperature 97.90 [degF] SunSep 24 00:2 5:07 EST 2023 Systolic Blood Pressure 130.00 mm[Hg] SunSep 23 21:30:09 EST 2023 Diastolic Blood Pressure 58.00 mm[Hg] SunSep 23 21:30:09 EST 2023 Body weight 140.00 [lb_av] SunSep 23 10:10 :22 EST 2023 Systolic Blood Pressure 114.00 mm[Hg] SunSep 23 09:50:06 EST 2023 Diastolic Blood Pressure 44.00 mm[Hg] SunSep 23 09:50:06 EST 2023 Systolic Blood Pressure 114.00 mm[Hg] SunSep 23 09:50:06 EST 2023 Diastolic Blood Pressure 44.00 mm[Hg] SunSep 23 09:50:06 EST 2023 Systolic Blood Pressure 122.00 mm[Hg] SunSep 23 09:12:37 EST 2023 Diastolic Blood Pressure 59.00 mm[Hg] SunSep 23 09:12:37 EST 2023 Pulse Oximetry 96.00 % SunSep 23 09:12 :37 EST 2023 Heart Rate 76.00 /min SunSep 23 09:12 :37 EST 2023 Respiratory rate 18.00 /min SunSep 23 09:1 2:37 EST 2023 Body temperature 98.20 [degF] SunSep 23 09:1 2:37 EST 2023 Systolic Blood Pressure 121.00 mm[Hg] SunSep 22 22:48:19 EST 2023 Diastolic Blood Pressure 57.00 mm[Hg] SunSep 22 22:48:19 EST 2023 Pulse Oximetry 95.00 % SunSep 22 22:48 :19 EST 2023 Heart Rate 60.00 /min SunSep 22 22:48 :19 EST 2023 Respiratory rate 18.00 /min SunSep 22 22:4 8:19 EST 2023 Body temperature 98.50 [degF] SunSep 22 22:4 8:19 EST 2023 Systolic Blood Pressure 121.00 mm[Hg] SunSep 22 22:14:49 EST 2023 Diastolic Blood Pressure 57.00 mm[Hg] SunSep 22 22:14:49 EST 2023 Body weight 144.40 [lb_av] SunSep 22 12:08 :16 EST 2023 Systolic Blood Pressure 114.00 mm[Hg] SunSep 22 10:09:00 EST 2023 Diastolic Blood Pressure 49.00 mm[Hg] SunSep 22 10:09:00 EST 2023 Systolic Blood Pressure 114.00 mm[Hg] SunSep 22 10:09:00 EST 2023 Diastolic Blood Pressure 49.00 mm[Hg] SunSep 22 10:09:00 EST 2023 Systolic Blood Pressure 114.00 mm[Hg] SunSep 22 10:09:00 EST 2023 Diastolic Blood Pressure 49.00 mm[Hg] SunSep 22 10:09:00 EST 2023 Pulse Oximetry 96.00 % SunSep 22 10:09 :00 EST 2023 Heart Rate 53.00 /min SunSep 22 10:09 :00 EST 2023 Respiratory rate 18.00 /min SunSep 22 10:0 9:00 EST 2023 Body temperature 98.20 [degF] SunSep 22 10:0 9:00 EST 2023 Systolic Blood Pressure 128.00 mm[Hg] SunSep 21 23:45:20 EST 2023 Diastolic Blood Pressure 69.00 mm[Hg] SunSep 21 23:45:20 EST 2023 Pulse Oximetry 95.00 % SunSep 21 23:45 :20 EST 2023 Heart Rate 72.00 /min SunSep 21 23:45 :20 EST 2023 Respiratory rate 20.00 /min SunSep 21 23:4 5:20 EST 2023 Body temperature 98.40 [degF] SunSep 21 23:4 5:20 EST 2023 Systolic Blood Pressure 128.00 mm[Hg] SunSep 21 20:37:07 EST 2023 Diastolic Blood Pressure 69.00 mm[Hg] SunSep 21 20:37:07 EST 2023 Body weight 140.60 [lb_av] SunSep 21 15:50 :27 EST 2023 Systolic Blood Pressure 131.00 mm[Hg] SunSep 21 11:38:19 EST 2023 Diastolic Blood Pressure 57.00 mm[Hg] SunSep 21 11:38:19 EST 2023 Pulse Oximetry 95.00 % SunSep 21 11:38 :19 EST 2023 Heart Rate 58.00 /min SunSep 21 11:38 :19 EST 2023 Respiratory rate 18.00 /min SunSep 21 11:3 8:19 EST 2023 Body temperature 98.60 [degF] SunSep 21 11:3 8:19 EST 2023 Systolic Blood Pressure 131.00 mm[Hg] SunSep 21 09:33:26 EST 2023 Diastolic Blood Pressure 57.00 mm[Hg] SunSep 21 09:33:26 EST 2023 Systolic Blood Pressure 131.00 mm[Hg] SunSep 21 09:33:26 EST 2023 Diastolic Blood Pressure 57.00 mm[Hg] SunSep 21 09:33:26 EST 2023 Systolic Blood Pressure 129.00 mm[Hg] SunSep 21 00:34:04 EST 2023 Diastolic Blood Pressure 56.00 mm[Hg] SunSep 21 00:34:04 EST 2023 Pulse Oximetry 95.00 % SunSep 21 00:34 :04 EST 2023 Heart Rate 58.00 /min SunSep 21 00:34 :04 EST 2023 Respiratory rate 14.00 /min SunSep 21 00:3 4:04 EST 2023 Body temperature 98.40 [degF] SunSep 21 00:3 4:04 EST 2023 Systolic Blood Pressure 129.00 mm[Hg] SunSep 20 20:12:05 EST 2023 Diastolic Blood Pressure 56.00 mm[Hg] SunSep 20 20:12:05 EST 2023 Body weight 139.80 [lb_av] SunSep 20 15:59 :13 EST 2023 Systolic Blood Pressure 131.00 mm[Hg] SunSep 20 09:36:25 EST 2023 Diastolic Blood Pressure 58.00 mm[Hg] SunSep 20 09:36:25 EST 2023 Systolic Blood Pressure 131.00 mm[Hg] SunSep 20 09:36:25 EST 2023 Diastolic Blood Pressure 58.00 mm[Hg] SunSep 20 09:36:25 EST 2023 Systolic Blood Pressure 131.00 mm[Hg] SunSep 20 08:33:52 EST 2023 Diastolic Blood Pressure 58.00 mm[Hg] SunSep 20 08:33:52 EST 2023 Pulse Oximetry 95.00 % SunSep 20 08:33 :52 EST 2023 Heart Rate 59.00 /min SunSep 20 08:33 :52 EST 2023 Respiratory rate 18.00 /min SunSep 20 08:3 3:52 EST 2023 Body temperature 98.00 [degF] SunSep 20 08:3 3:52 EST 2023 Systolic Blood Pressure 140.00 mm[Hg] SunSep 20 00:55:28 EST 2023 Diastolic Blood Pressure 63.00 mm[Hg] SunSep 20 00:55:28 EST 2023 Pulse Oximetry 94.00 % SunSep 20 00:55 :28 EST 2023 Heart Rate 53.00 /min SunSep 20 00:55 :28 EST 2023 Respiratory rate 14.00 /min SunSep 20 00:5 5:28 EST 2023 Body temperature 98.00 [degF] SunSep 20 00:5 5:28 EST 2023 Systolic Blood Pressure 140.00 mm[Hg] SunSep 19 20:27:44 EST 2023 Diastolic Blood Pressure 63.00 mm[Hg] SunSep 19 20:27:44 EST 2023 Body weight 143.10 [lb_av] SunSep 19 15:13 :24 EST 2023 Systolic Blood Pressure 141.00 mm[Hg] SunSep 19 10:17:18 2023 Diastolic Blood Pressure 63.00 mm[Hg] SunSep 19 10:17:18 2023 Pulse Oximetry 94.00 % SunSep 19 10:17 :18 2023 Heart Rate 55.00 /min SunSep 19 10:17 :18 EST 2023 Respiratory rate 18.00 /min SunSep 19 10:1 7:18 EST 2023 Body temperature 98.20 [degF] SunSep 19 10:1 7:18 EST 2023 Systolic Blood Pressure 141.00 mm[Hg] SunSep 19 09:13:31 EST 2023 Diastolic Blood Pressure 63.00 mm[Hg] SunSep 19 09:13:31 EST 2023 Systolic Blood Pressure 141.00 mm[Hg] SunSep 19 09:13:31 EST 2023 Diastolic Blood Pressure 63.00 mm[Hg] SunSep 19 09:13:31 EST 2023 Systolic Blood Pressure 100.00 mm[Hg] SunSep 18 22:06:05 2023 Diastolic Blood Pressure 54.00 mm[Hg] SunSep 18 22:06:05 2023 Pulse Oximetry 98.00 % SunSep 18 22:06 :05 2023 Heart Rate 63.00 /min SunSep 18 22:06 :05 2023 Respiratory rate 18.00 /min SunSep 18 22:0 6:05 2023 Body temperature 98.30 [degF] SunSep 18 22:0 6:05 2023 Systolic Blood Pressure 100.00 mm[Hg] SunSep 18 21:52:11 2023 Diastolic Blood Pressure 54.00 mm[Hg] SunSep 18 21:52:11 2023 Body weight 145.30 [lb_av] SunSep 18 17:40 :46 2023 Systolic Blood Pressure 99.00 mm[Hg] SunSep 18 10:11:22 2023 Diastolic Blood Pressure 61.00 mm[Hg] SunSep 18 10:11:22 2023 Pulse Oximetry 96.00 % SunSep 18 10:11 :22 2023 Heart Rate 68.00 /min SunSep 18 10:11 :22 2023 Respiratory rate 18.00 /min SunSep 18 10:1 1:22 2023 Body temperature 98.20 [degF] SunSep 18 10:1 1:22 2023 Systolic Blood Pressure 99.00 mm[Hg] SunSep 18 10:00:29 2023 Diastolic Blood Pressure 61.00 mm[Hg] SunSep 18 10:00:29 2023 Systolic Blood Pressure 99.00 mm[Hg] SunSep 18 10:00:29 2023 Diastolic Blood Pressure 61.00 mm[Hg] SunSep 18 10:00:29 2023 Systolic Blood Pressure 116.00 mm[Hg] SunSep 17 22:37:04 2023 Diastolic Blood Pressure 56.00 mm[Hg] SunSep 17 22:37:04 2023 Pulse Oximetry 97.00 % SunSep 17 22:37 :04 2023 Heart Rate 58.00 /min SunSep 17 22:37 :04 EST 2023 Respiratory rate 18.00 /min SunSep 17 22:3 7:04 2023 Body temperature 98.20 [degF] SunSep 17 22:3 7:04 EST 2023 Systolic Blood Pressure 116.00 mm[Hg] SunSep 17 20:16:05 EST 2023 Diastolic Blood Pressure 56.00 mm[Hg] SunSep 17 20:16:05 EST 4 Body weight 146.00 [lb_av] SunSep 17 12:55 :56 EST 2023 Systolic Blood Pressure 144.00 mm[Hg] SunSep 17 09:13:05 EST 2023 Diastolic Blood Pressure 61.00 mm[Hg] SunSep 17 09:13:05 EST 2024 Systolic Blood Pressure 144.00 mm[Hg] SunSep 17 09:13:05 EST 2023 Diastolic Blood Pressure 61.00 mm[Hg] SunSep 17 09:13:05 EST 2023 Systolic Blood Pressure 144.00 mm[Hg] SunSep 17 08:26:23 EST 2023 Diastolic Blood Pressure 61.00 mm[Hg] SunSep 17 08:26:23 EST 2023 Pulse Oximetry 98.00 % SunSep 17 08:26 :23 EST 2023 Heart Rate 62.00 /min SunSep 17 08:26 :23 EST 4 Respiratory rate 18.00 /min SunSep 17 08:2 6:23 EST 2023 Body temperature 98.30 [degF] SunSep 17 08:2 6:23 EST 2023 Systolic Blood Pressure 136.00 mm[Hg] SunSep 16 21:53:11 EST 2023 Diastolic Blood Pressure 55.00 mm[Hg] SunSep 16 21:53:11 2023 Pulse Oximetry 97.00 % SunSep 16 21:53 :11 2023 Heart Rate 55.00 /min SunSep 16 21:53 :11 EST 2023 Respiratory rate 18.00 /min SunSep 16 21:5 3:11 EST 2023 Body temperature 98.20 [degF] SunSep 16 21:5 3:11 EST 4 Systolic Blood Pressure 135.00 mm[Hg] SunSep 16 20:11:55 EST 4 Diastolic Blood Pressure 55.00 mm[Hg] SunSep 16 20:11:55 EST 4 Systolic Blood Pressure 112.00 mm[Hg] SunSep 16 10:20:43 EST 2023 Diastolic Blood Pressure 54.00 mm[Hg] SunSep 16 10:20:43 EST 2023 Pulse Oximetry 98.00 % SunSep 16 10:20 :43 EST 2023 Heart Rate 48.00 /min SunSep 16 10:20 :43 EST 2023 Respiratory rate 18.00 /min SunSep 16 10:2 0:43 EST 4 Body temperature 98.20 [degF] SunSep 16 10:2 0:43 EST 4 Systolic Blood Pressure 112.00 mm[Hg] SunSep 16 10:20:07 EST 2023 Diastolic Blood Pressure 54.00 mm[Hg] SunSep 16 10:20:07 EST 2023 Systolic Blood Pressure 148.00 mm[Hg] SunSep 16 01:26:58 EST 2023 Diastolic Blood Pressure 55.00 mm[Hg] SunSep 16 01:26:58 EST 2023 Pulse Oximetry 96.00 % SunSep 16 01:26 :58 EST 2023 Heart Rate 85.00 /min SunSep 16 01:26 :58 EST 2023 Respiratory rate 18.00 /min SunSep 16 01:2 6:58 EST 2023 Body temperature 97.80 [degF] SunSep 16 01:2 6:58 EST 4 Systolic Blood Pressure 134.00 mm[Hg] SunSep 15 23:09:11 EST 4 Diastolic Blood Pressure 65.00 mm[Hg] SunSep 15 23:09:11 EST 2023 Systolic Blood Pressure 134.00 mm[Hg] SunSep 15 23:09:11 EST 4 Diastolic Blood Pressure 65.00 mm[Hg] SunSep 15 23:09:11 EST 4 Heart Rate 59.00 /min SunSep 15 23:09 :11 EST 2023 Body weight 144.60 [lb_av] SunSep 15 15:43 :20 EST 4 Systolic Blood Pressure 118.00 mm[Hg] SunSep 15 09:53:19 EST 4 Diastolic Blood Pressure 55.00 mm[Hg] SunSep 15 09:53:19 EST 2023 Pulse Oximetry 96.00 % SunSep 15 09:53 :19 EST 2023 Heart Rate 50.00 /min SunSep 15 09:53 :19 EST 4 Respiratory rate 17.00 /min SunSep 15 09:5 3:19 EST 4 Body temperature 97.30 [degF] SunSep 15 09:5 3:19 EST 4 Systolic Blood Pressure 118.00 mm[Hg] SunSep 15 09:52:51 EST 2024 Diastolic Blood Pressure 55.00 mm[Hg] SunSep 15 09:52:51 EST 2023 Systolic Blood Pressure 118.00 mm[Hg] SunSep 15 09:52:51 EST 2023 Diastolic Blood Pressure 55.00 mm[Hg] SunSep 15 09:52:51 EST 2023 Systolic Blood Pressure 118.00 mm[Hg] SunSep 15 09:52:51 EST 2023 Diastolic Blood Pressure 55.00 mm[Hg] SunSep 15 09:52:51 EST 2023 Systolic Blood Pressure 138.00 mm[Hg] SunSep 14 23:20:56 EST 2023 Diastolic Blood Pressure 61.00 mm[Hg] SunSep 14 23:20:56 EST 2023 Pulse Oximetry 96.00 % SunSep 14 23:20 :56 EST 2023 Heart Rate 64.00 /min SunSep 14 23:20 :56 2023 Respiratory rate 18.00 /min SunSep 14 23:2 0:56 2023 Body temperature 98.30 [degF] SunSep 14 23:2 0:56 2023 Systolic Blood Pressure 138.00 mm[Hg] SunSep 14 21:23:07 EST 2023 Diastolic Blood Pressure 61.00 mm[Hg] SunSep 14 21:23:07 EST 2023 Systolic Blood Pressure 138.00 mm[Hg] SunSep 14 21:23:07 EST 2023 Diastolic Blood Pressure 61.00 mm[Hg] SunSep 14 21:23:07 2023 Heart Rate 64.00 /min SunSep 14 21:23 :07 2023 Body weight 143.60 [lb_av] SunSep 14 12:14 :41 EST 2023 Systolic Blood Pressure 130.00 mm[Hg] SunSep 14 09:18:31 EST 2023 Diastolic Blood Pressure 56.00 mm[Hg] SunSep 14 09:18:31 EST 2023 Systolic Blood Pressure 130.00 mm[Hg] SunSep 14 09:18:31 EST 2023 Diastolic Blood Pressure 56.00 mm[Hg] SunSep 14 09:18:31 EST 2023 Systolic Blood Pressure 130.00 mm[Hg] SunSep 14 09:18:31 EST 2023 Diastolic Blood Pressure 56.00 mm[Hg] SunSep 14 09:18:31 EST 2023 Heart Rate 60.00 /min SunSep 14 09:18 :31 EST 2023 Systolic Blood Pressure 130.00 mm[Hg] SunSep 14 08:53:28 EST 2023 Diastolic Blood Pressure 56.00 mm[Hg] SunSep 14 08:53:28 EST 2023 Pulse Oximetry 96.00 % SunSep 14 08:53 :28 EST 2023 Heart Rate 60.00 /min SunSep 14 08:53 :28 EST 2023 Respiratory rate 17.00 /min SunSep 14 08:5 3:28 EST 2023 Body temperature 97.30 [degF] SunSep 14 08:5 3:28 EST 2023 Systolic Blood Pressure 146.00 mm[Hg] SunSep 13 22:42:41 EST 2023 Diastolic Blood Pressure 54.00 mm[Hg] SunSep 13 22:42:41 EST 2023 Pulse Oximetry 97.00 % SunSep 13 22:42 :41 EST 2023 Heart Rate 54.00 /min SunSep 13 22:42 :41 EST 2023 Respiratory rate 18.00 /min SunSep 13 22:4 2:41 EST 2023 Body temperature 98.40 [degF] SunSep 13 22:4 2:41 EST 2023 Systolic Blood Pressure 137.00 mm[Hg] SunSep 13 21:56:40 EST 2023 Diastolic Blood Pressure 56.00 mm[Hg] SunSep 13 21:56:40 EST 2023 Systolic Blood Pressure 137.00 mm[Hg] SunSep 13 21:56:40 EST 2023 Diastolic Blood Pressure 56.00 mm[Hg] SunSep 13 21:56:40 EST 2023 Heart Rate 50.00 /min SunSep 13 21:56 :40 EST 2023 Body weight 143.60 [lb_av] SunSep 13 11:20 :53 EST 2023 Systolic Blood Pressure 149.00 mm[Hg] SunSep 13 09:39:29 EST 2023 Diastolic Blood Pressure 55.00 mm[Hg] SunSep 13 09:39:29 EST 2023 Systolic Blood Pressure 149.00 mm[Hg] SunSep 13 09:39:29 EST 2023 Diastolic Blood Pressure 55.00 mm[Hg] SunSep 13 09:39:29 EST 2023 Systolic Blood Pressure 149.00 mm[Hg] SunSep 13 08:56:15 EST 2023 Diastolic Blood Pressure 55.00 mm[Hg] SunSep 13 08:56:15 EST 2023 Pulse Oximetry 97.00 % SunSep 13 08:56 :15 EST 2024 Heart Rate 47.00 /min SunSep 13 08:56 :15 EST 2023 Respiratory rate 18.00 /min SunSep 13 08:5 6:15 EST 2023 Body temperature 98.40 [degF] SunSep 13 08:5 6:15 EST 2023 Systolic Blood Pressure 157.00 mm[Hg] SunSep 13 00:37:39 EST 2023 Diastolic Blood Pressure 67.00 mm[Hg] SunSep 13 00:37:39 EST 2023 Pulse Oximetry 98.00 % SunSep 13 00:37 :39 EST 2023 Heart Rate 57.00 /min SunSep 13 00:37 :39 EST 2023 Respiratory rate 18.00 /min SunSep 13 00:3 7:39 EST 2023 Body temperature 98.20 [degF] SunSep 13 00:3 7:39 EST 2023 Systolic Blood Pressure 157.00 mm[Hg] SunSep 12 20:15:44 EST 2023 Diastolic Blood Pressure 67.00 mm[Hg] SunSep 12 20:15:44 EST 2023 Systolic Blood Pressure 157.00 mm[Hg] SunSep 12 20:15:44 EST 2023 Diastolic Blood Pressure 67.00 mm[Hg] SunSep 12 20:15:44 EST 2023 Heart Rate 57.00 /min SunSep 12 20:15 :44 EST 2023 Systolic Blood Pressure 110.00 mm[Hg] SunSep 12 15:43:12 EST 2023 Diastolic Blood Pressure 56.00 mm[Hg] SunSep 12 15:43:12 EST 2023 Pulse Oximetry 96.00 % SunSep 12 15:43 :12 EST 2023 Body weight 145.20 [lb_av] SunSep 12 15:43 :12 EST 2023 Heart Rate 50.00 /min SunSep 12 15:43 :12 EST 2023 Respiratory rate 18.00 /min SunSep 12 15:4 3:12 EST 2023 Body temperature 97.30 [degF] SunSep 12 15:4 3:12 EST 2023 Systolic Blood Pressure 110.00 mm[Hg] SunSep 12 09:48:19 EST 2023 Diastolic Blood Pressure 56.00 mm[Hg] SunSep 12 09:48:19 EST 4 Systolic Blood Pressure 110.00 mm[Hg] SunSep 12 09:48:19 EST 2023 Diastolic Blood Pressure 56.00 mm[Hg] SunSep 12 09:48:19 EST 2023 Systolic Blood Pressure 110.00 mm[Hg] SunSep 12 09:48:19 EST 2023 Diastolic Blood Pressure 56.00 mm[Hg] SunSep 12 09:48:19 EST 2023 Heart Rate 50.00 /min SunSep 12 09:48 :19 EST 2023 Systolic Blood Pressure 152.00 mm[Hg] SunSep 11 22:57:24 2023 Diastolic Blood Pressure 62.00 mm[Hg] SunSep 11 22:57:24 EST 2023 Pulse Oximetry 99.00 % SunSep 11 22:57 :24 EST 2023 Heart Rate 58.00 /min SunSep 11 22:57 :24 EST 2023 Respiratory rate 18.00 /min SunSep 11 22:5 7:24 2023 Body temperature 98.40 [degF] SunSep 11 22:5 7:24 EST 2023 Systolic Blood Pressure 152.00 mm[Hg] SunSep 11 22:06:14 2023 Diastolic Blood Pressure 62.00 mm[Hg] SunSep 11 22:06:14 2023 Systolic Blood Pressure 152.00 mm[Hg] SunSep 11 22:06:14 2023 Diastolic Blood Pressure 62.00 mm[Hg] SunSep 11 22:06:14 2023 Heart Rate 58.00 /min SunSep 11 22:06 :14 2023 Body weight 145.00 [lb_av] SunSep 11 15:07 :19 2023 Systolic Blood Pressure 113.00 mm[Hg] SunSep 11 10:02:41 2023 Diastolic Blood Pressure 51.00 mm[Hg] SunSep 11 10:02:41 2023 Pulse Oximetry 97.00 % SunSep 11 10:02 :41 2023 Heart Rate 58.00 /min SunSep 11 10:02 :41 2023 Respiratory rate 18.00 /min SunSep 11 10:0 2:41 2023 Body temperature 98.70 [degF] SunSep 11 10:0 2:41 EST 2023 Systolic Blood Pressure 113.00 mm[Hg] SunSep 11 09:21:59 EST 2023 Diastolic Blood Pressure 51.00 mm[Hg] SunSep 11 09:21:59 2023 Systolic Blood Pressure 113.00 mm[Hg] SunSep 11 09:21:59 EST 2023 Diastolic Blood Pressure 51.00 mm[Hg] SunSep 11 09:21:59 EST 2023 Systolic Blood Pressure 113.00 mm[Hg] SunSep 11 09:21:59 EST 2023 Diastolic Blood Pressure 51.00 mm[Hg] SunSep 11 09:21:59 EST 2023 Heart Rate 58.00 /min SunSep 11 09:21 :59 EST 2023 Systolic Blood Pressure 119.00 mm[Hg] SunSep 11 01:27:57 EST 2023 Diastolic Blood Pressure 55.00 mm[Hg] SunSep 11 01:27:57 EST 2023 Pulse Oximetry 97.00 % SunSep 11 01:27 :57 EST 2023 Heart Rate 50.00 /min SunSep 11 01:27 :57 EST 2023 Respiratory rate 18.00 /min SunSep 11 01:2 7:57 EST 2023 Body temperature 98.20 [degF] SunSep 11 01:2 7:57 EST 2023 Systolic Blood Pressure 119.00 mm[Hg] SunSep 10 21:30:22 EST 2023 Diastolic Blood Pressure 55.00 mm[Hg] SunSep 10 21:30:22 EST 2023 Systolic Blood Pressure 119.00 mm[Hg] SunSep 10 21:30:22 EST 2023 Diastolic Blood Pressure 55.00 mm[Hg] SunSep 10 21:30:22 EST 2023 Heart Rate 50.00 /min SunSep 10 21:30 :22 EST 2023 Systolic Blood Pressure 108.00 mm[Hg] SunSep 10 09:43:13 EST 2023 Diastolic Blood Pressure 50.00 mm[Hg] SunSep 10 09:43:13 EST 2023 Systolic Blood Pressure 108.00 mm[Hg] SunSep 10 09:43:13 EST 2023 Diastolic Blood Pressure 50.00 mm[Hg] SunSep 10 09:43:13 EST 2023 Systolic Blood Pressure 108.00 mm[Hg] SunSep 10 09:43:13 EST 2023 Diastolic Blood Pressure 50.00 mm[Hg] SunSep 10 09:43:13 EST 2023 Systolic Blood Pressure 108.00 mm[Hg] SunSep 10 09:43:13 EST 2023 Diastolic Blood Pressure 50.00 mm[Hg] SunSep 10 09:43:13 EST 2023 Pulse Oximetry 98.00 % SunSep 10 09:43 :13 EST 2023 Heart Rate 52.00 /min SunSep 10 09:43 :13 EST 2023 Heart Rate 52.00 /min SunSep 10 09:43 :13 EST 2023 Respiratory rate 18.00 /min SunSep 10 09:4 3:13 EST 2023 Body temperature 97.80 [degF] SunSep 10 09:4 3:13 EST 2023 Systolic Blood Pressure 122.00 mm[Hg] SunSep 10 02:26:28 EST 2023 Diastolic Blood Pressure 57.00 mm[Hg] SunSep 10 02:26:28 EST 2023 Pulse Oximetry 97.00 % SunSep 10 02:26 :28 EST 2023 Heart Rate 84.00 /min SunSep 10 02:26 :28 EST 2023 Respiratory rate 18.00 /min SunSep 10 02:2 6:28 EST 2023 Body temperature 98.20 [degF] SunSep 10 02:2 6:28 EST 2023 Systolic Blood Pressure 122.00 mm[Hg] SunSep 09 21:08:30 EST 2023 Diastolic Blood Pressure 57.00 mm[Hg] SunSep 09 21:08:30 EST 2023 Systolic Blood Pressure 122.00 mm[Hg] SunSep 09 21:08:30 EST 2023 Diastolic Blood Pressure 57.00 mm[Hg] SunSep 09 21:08:30 EST 2023 Heart Rate 84.00 /min SunSep 09 21:08 :30 EST 2023 Systolic Blood Pressure 136.00 mm[Hg] SunSep 09 10:32:00 EST 2023 Diastolic Blood Pressure 54.00 mm[Hg] SunSep 09 10:32:00 EST 2023 Pulse Oximetry 94.00 % SunSep 09 10:32 :00 EST 2023 Heart Rate 55.00 /min SunSep 09 10:32 :00 EST 2023 Respiratory rate 18.00 /min SunSep 09 10:3 2:00 EST 2023 Body temperature 98.20 [degF] SunSep 09 10:3 2:00 EST 2023 Systolic Blood Pressure 136.00 mm[Hg] SunSep 09 10:05:35 EST 2023 Diastolic Blood Pressure 54.00 mm[Hg] SunSep 09 10:05:35 EST 2023 Systolic Blood Pressure 136.00 mm[Hg] SunSep 09 10:05:35 EST 2023 Diastolic Blood Pressure 54.00 mm[Hg] SunSep 09 10:05:35 EST 2023 Systolic Blood Pressure 136.00 mm[Hg] SunSep 09 10:05:35 EST 2023 Diastolic Blood Pressure 54.00 mm[Hg] SunSep 09 10:05:35 EST 2023 Heart Rate 55.00 /min SunSep 09 10:05 :35 EST 2023 Systolic Blood Pressure 105.00 mm[Hg] SunSep 09 00:26:10 EST 2023 Diastolic Blood Pressure 62.00 mm[Hg] SunSep 09 00:26:10 EST 2023 Pulse Oximetry 98.00 % SunSep 09 00:26 :10 EST 2023 Heart Rate 48.00 /min SunSep 09 00:26 :10 EST 2023 Respiratory rate 16.00 /min SunSep 09 00:2 6:10 EST 2023 Body temperature 98.30 [degF] SunSep 09 00:2 6:10 EST 2023 Systolic Blood Pressure 105.00 mm[Hg] SunSep 08 22:39:24 EST 2023 Diastolic Blood Pressure 62.00 mm[Hg] SunSep 08 22:39:24 EST 2023 Systolic Blood Pressure 105.00 mm[Hg] SunSep 08 22:39:24 EST 2023 Diastolic Blood Pressure 62.00 mm[Hg] SunSep 08 22:39:24 EST 2023 Heart Rate 48.00 /min SunSep 08 22:39 :24 EST 2023 Body weight 146.20 [lb_av] SunSep 08 15:13 :22 EST 2023 Systolic Blood Pressure 133.00 mm[Hg] SunSep 08 09:50:01 EST 2023 Diastolic Blood Pressure 55.00 mm[Hg] SunSep 08 09:50:01 EST 2023 Systolic Blood Pressure 133.00 mm[Hg] SunSep 08 09:50:01 EST 2023 Diastolic Blood Pressure 55.00 mm[Hg] SunSep 08 09:50:01 EST 2023 Systolic Blood Pressure 133.00 mm[Hg] SunSep 08 09:50:01 EST 2023 Diastolic Blood Pressure 55.00 mm[Hg] SunSep 08 09:50:01 EST 2023 Systolic Blood Pressure 133.00 mm[Hg] SunSep 08 09:50:01 EST 2023 Diastolic Blood Pressure 55.00 mm[Hg] SunSep 08 09:50:01 EST 2023 Pulse Oximetry 97.00 % SunSep 08 09:50 :01 EST 2023 Heart Rate 59.00 /min SunSep 08 09:50 :01 EST 2023 Heart Rate 59.00 /min SunSep 08 09:50 :01 EST 2023 Respiratory rate 18.00 /min SunSep 08 09:5 0:01 EST 2023 Body temperature 98.20 [degF] SunSep 08 09:5 0:01 EST 2023 Systolic Blood Pressure 116.00 mm[Hg] SunSep 07 23:34:12 EST 2023 Diastolic Blood Pressure 54.00 mm[Hg] SunSep 07 23:34:12 EST 2023 Pulse Oximetry 98.00 % SunSep 07 23:34 :12 EST 2023 Heart Rate 50.00 /min SunSep 07 23:34 :12 EST 2023 Respiratory rate 18.00 /min SunSep 07 23:3 4:12 EST 2023 Body temperature 98.30 [degF] SunSep 07 23:3 4:12 EST 2023 Systolic Blood Pressure 116.00 mm[Hg] SunSep 07 21:37:05 EST 2023 Diastolic Blood Pressure 54.00 mm[Hg] SunSep 07 21:37:05 EST 2023 Systolic Blood Pressure 116.00 mm[Hg] SunSep 07 21:37:05 EST 2023 Diastolic Blood Pressure 54.00 mm[Hg] SunSep 07 21:37:05 EST 2023 Heart Rate 50.00 /min SunSep 07 21:37 :05 EST 2023 Systolic Blood Pressure 119.00 mm[Hg] SunSep 07 14:11:39 EST 2023 Diastolic Blood Pressure 96.00 mm[Hg] SunSep 07 14:11:39 EST 2023 Pulse Oximetry 97.00 % SunSep 07 14:11 :39 EST 2023 Body weight 186.00 [lb_av] SunSep 07 14:11 :39 EST 2023 Heart Rate 60.00 /min SunSep 07 14:11 :39 EST 2023 Respiratory rate 18.00 /min SunSep 07 14:1 1:39 EST 2023 Body temperature 98.50 [degF] SunSep 07 14:1 1:39 EST 2023 Systolic Blood Pressure 119.00 mm[Hg] SunSep 07 09:22:19 EST 2023 Diastolic Blood Pressure 96.00 mm[Hg] SunSep 07 09:22:19 EST 2023 Systolic Blood Pressure 119.00 mm[Hg] SunSep 07 09:22:19 EST 2023 Diastolic Blood Pressure 96.00 mm[Hg] SunSep 07 09:22:19 EST 2023 Systolic Blood Pressure 119.00 mm[Hg] SunSep 07 09:22:19 EST 2023 Diastolic Blood Pressure 96.00 mm[Hg] SunSep 07 09:22:19 EST 2023 Heart Rate 60.00 /min SunSep 07 09:22 :19 EST 2023 Systolic Blood Pressure 117.00 mm[Hg] SunSep 07 00:14:22 EDT 2023 Diastolic Blood Pressure 51.00 mm[Hg] SunSep 07 00:14:22 EDT 2023 Pulse Oximetry 95.00 % SunSep 07 00:14 :22 EDT 2023 Heart Rate 58.00 /min [place] Sep 07 00:14 :22 EDT 2023 Respiratory rate 18.00 /min [place] Sep 07 00:1 4:22 EDT 2023 Body temperature 98.30 [degF] SunSep 07 00:1 4:22 EDT 2023 Systolic Blood Pressure 117.00 mm[Hg] [facility] Sep 06 21:31:20 EDT 2023 Diastolic Blood Pressure 51.00 mm[Hg] SunSep 06 21:31:20 EDT 4 Systolic Blood Pressure 117.00 mm[Hg] [facility] Sep 06 21:31:20 EDT 2023 Diastolic Blood Pressure 51.00 mm[Hg] SunSep 06 21:31:20 EDT 2023 Heart Rate 58.00 /min SunSep 06 21:31 :20 EDT 4 Systolic Blood Pressure 146.00 mm[Hg] [facility] Sep 06 09:08:08 EDT 4 Diastolic Blood Pressure 62.00 mm[Hg] SunSep 06 09:08:08 EDT 4 Systolic Blood Pressure 146.00 mm[Hg] SunSep 06 09:08:08 EDT 4 Diastolic Blood Pressure 62.00 mm[Hg] SunSep 06 09:08:08 EDT 4 Systolic Blood Pressure 146.00 mm[Hg] SunSep 06 09:08:08 EDT 4 Diastolic Blood Pressure 62.00 mm[Hg] SunSep 06 09:08:08 EDT 4 Systolic Blood Pressure 146.00 mm[Hg] SunSep 06 09:08:08 EDT 4 Diastolic Blood Pressure 62.00 mm[Hg] [facility] Sep 06 09:08:08 EDT 2023 Pulse Oximetry 98.00 % SunSep 06 09:08 :08 EDT 2023 Heart Rate 57.00 /min SunSep 06 09:08 :08 EDT 2023 Heart Rate 57.00 /min SunSep 06 09:08 :08 EDT 2023 Respiratory rate 18.00 /min SunSep 06 09:0 8:08 EDT 2023 Body temperature 98.30 [degF] SunSep 06 09:0 8:08 EDT 2023 Systolic Blood Pressure 161.00 mm[Hg] SunSep 05 23:50:09 EDT 2023 Diastolic Blood Pressure 68.00 mm[Hg] SunSep 05 23:50:09 EDT 2023 Pulse Oximetry 99.00 % SunSep 05 23:50 :09 EDT 2023 Heart Rate 54.00 /min SunSep 05 23:50 :09 EDT 2023 Respiratory rate 18.00 /min SunSep 05 23:5 0:09 EDT 2023 Body temperature 98.30 [degF] SunSep 05 23:5 0:09 EDT 2023 Systolic Blood Pressure 161.00 mm[Hg] SunSep 05 21:37:58 EDT 2023 Diastolic Blood Pressure 68.00 mm[Hg] SunSep 05 21:37:58 EDT 4 Systolic Blood Pressure 161.00 mm[Hg] SunSep 05 21:37:58 EDT 2023 Diastolic Blood Pressure 68.00 mm[Hg] SunSep 05 21:37:58 EDT 4 Heart Rate 54.00 /min SunSep 05 21:37 :58 EDT 4 Body weight 188.20 [lb_av] SunSep 05 15:12 :21 EDT 2023 Systolic Blood Pressure 110.00 mm[Hg] SunSep 05 10:19:01 EDT 2023 Diastolic Blood Pressure 55.00 mm[Hg] SunSep 05 10:19:01 EDT 2023 Pulse Oximetry 98.00 % SunSep 05 10:19 :01 EDT 2023 Heart Rate 52.00 /min SunSep 05 10:19 :01 EDT 2023 Respiratory rate 18.00 /min SunSep 05 10:1 9:01 EDT 2023 Body temperature 98.30 [degF] SunSep 05 10:1 9:01 EDT 2023 Systolic Blood Pressure 110.00 mm[Hg] SunSep 05 09:43:40 EDT 2023 Diastolic Blood Pressure 55.00 mm[Hg] SunSep 05 09:43:40 EDT 2023 Systolic Blood Pressure 110.00 mm[Hg] SunSep 05 09:43:40 EDT 2023 Diastolic Blood Pressure 55.00 mm[Hg] SunSep 05 09:43:40 EDT 2023 Systolic Blood Pressure 110.00 mm[Hg] SunSep 05 09:43:40 EDT 2023 Diastolic Blood Pressure 55.00 mm[Hg] SunSep 05 09:43:40 EDT 2023 Heart Rate 52.00 /min SunSep 05 09:43 :40 EDT 2023 Systolic Blood Pressure 153.00 mm[Hg] SunSep 05 00:28:22 EDT 2023 Diastolic Blood Pressure 74.00 mm[Hg] SunSep 05 00:28:22 EDT 2023 Pulse Oximetry 97.00 % SunSep 05 00:28 :22 EDT 2023 Heart Rate 59.00 /min SunSep 05 00:28 :22 EDT 2023 Respiratory rate 16.00 /min SunSep 05 00:2 8:22 EDT 2023 Body temperature 97.20 [degF] SunSep 05 00:2 8:22 EDT 2023 Systolic Blood Pressure 153.00 mm[Hg] [place] Aug 31 21:26:15 EDT 2023 Diastolic Blood Pressure 74.00 mm[Hg] [place] Sep 04 21:26:15 EDT 2023 Systolic Blood Pressure 153.00 mm[Hg] SunSep 04 21:26:15 EDT 2023 Diastolic Blood Pressure 74.00 mm[Hg] [place] Sep 04 21:26:15 EDT 2023 Heart Rate 59.00 /min [place] Sep 04 21:26 :15 EDT 2023 Systolic Blood Pressure 116.00 mm[Hg] SunSep 04 10:12:52 EDT 2023 Diastolic Blood Pressure 49.00 mm[Hg] [place] Aug 31 10:12:52 EDT 2023 Pulse Oximetry 99.00 % SunSep 04 10:12 :52 EDT 2023 Heart Rate 57.00 /min SunSep 04 10:12 :52 EDT 2023 Respiratory rate 18.00 /min Sun 31 10:1 2:52 EDT 2023 Body temperature 98.20 [degF] [place] 10:1 2:52 EDT 2023 Systolic Blood Pressure 116.00 mm[Hg] [place] Oct 31 08:42:40 EDT 2023 Diastolic Blood Pressure 49.00 mm[Hg] [place] Oct 31 08:42:40 EDT 4 Systolic Blood Pressure 116.00 mm[Hg] [place] Oct 31 08:42:40 EDT 2023 Diastolic Blood Pressure 49.00 mm[Hg] [place] Oct 31 08:42:40 EDT 2023 Systolic Blood Pressure 116.00 mm[Hg] [place] Oct 31 08:42:40 EDT 2023 Diastolic Blood Pressure 49.00 mm[Hg] [place] Oct 31 08:42:40 EDT 2023 Heart Rate 57.00 /min [place] Oct 31 08:42 :40 EDT 2023 Systolic Blood Pressure 145.00 mm[Hg] Wed Oct 30 22:44:30 EDT 2023 Diastolic Blood Pressure 58.00 mm[Hg] Wed Oct 30 22:44:30 EDT 2023 Pulse Oximetry 98.00 % Wed Oct 30 22:44 :30 EDT 2023 Heart Rate 58.00 /min Wed Oct 30 22:44 :30 EDT 2023 Respiratory rate 18.00 /min Wed Oct 30 22:4 4:30 EDT 2023 Body temperature 98.20 [degF] Wed Oct 30 22:4 4:30 EDT 2023 Systolic Blood Pressure 145.00 mm[Hg] Wed Oct 30 21:03:57 EDT 2023 Diastolic Blood Pressure 58.00 mm[Hg] Wed Oct 30 21:03:57 EDT 2023 Systolic Blood Pressure 145.00 mm[Hg] Wed Oct 30 21:03:57 EDT 2023 Diastolic Blood Pressure 58.00 mm[Hg] Wed Oct 30 21:03:57 EDT 2023 Heart Rate 58.00 /min Wed Oct 30 21:03 :57 EDT 2023 Body weight 187.00 [lb_av] Wed Oct 30 14:24 :16 EDT 2023 Body weight 148.00 [lb_av] Wed Oct 30 14:06 :37 EDT 2023 Systolic Blood Pressure 131.00 mm[Hg] Wed Oct 30 13:14:09 EDT 2023 Diastolic Blood Pressure 58.00 mm[Hg] Wed Oct 30 13:14:09 EDT 2023 Pulse Oximetry 96.00 % Wed Oct 30 13:14 :09 EDT 2023 Heart Rate 60.00 /min Wed Oct 30 13:14 :09 EDT 2023 Respiratory rate 18.00 /min Sun 30 13:1 4:09 EDT 2023 Body temperature 98.30 [degF] Sun 30 13:1 4:09 EDT 2023 Systolic Blood Pressure 131.00 mm[Hg] Sun 30 09:46:38 EDT 2023 Diastolic Blood Pressure 58.00 mm[Hg] Sun 30 09:46:38 EDT 2023 Heart Rate 60.00 /min Sun 30 09:46 :38 EDT 2023 Systolic Blood Pressure 131.00 mm[Hg] Sun Oct 30 09:25:27 EDT 2023 Diastolic Blood Pressure 58.00 mm[Hg] Sun Oct 30 09:25:27 EDT 2023 Systolic Blood Pressure 131.00 mm[Hg] Sun Oct 30 :: EDT 2023 Diastolic Blood Pressure 58.00 mm[Hg] Sun 30 :: EDT 2023 Systolic Blood Pressure 134.00 mm[Hg] Sun 30 00:28:04 EDT 2023 Diastolic Blood Pressure 66.00 mm[Hg] SunSep 03 00:28:04 EDT 2023 Pulse Oximetry 96.00 % SunSep 03 00:28 :04 EDT 2023 Heart Rate 58.00 /min SunSep 03 00:28 :04 EDT 2023 Respiratory rate 18.00 /min SunSep 03 00:2 8:04 EDT 2023 Body temperature 98.20 [degF] [facility] Sep 03 00:2 8:04 EDT 2023 Systolic Blood Pressure 134.00 mm[Hg] Oct 29 21:32:55 EDT 2023 Diastolic Blood Pressure 66.00 mm[Hg] SunSep 02 21:32:55 EDT 2023 Systolic Blood Pressure 134.00 mm[Hg] SunSep 02 21:32:55 EDT 2023 Diastolic Blood Pressure 66.00 mm[Hg] SunSep 02 21:32:55 EDT 2023 Heart Rate 58.00 /min SunSep 02 21:32 :55 EDT 2023 Body weight 146.60 [lb_av] Sun 29 11:37 :42 EDT 2023 Systolic Blood Pressure 128.00 mm[Hg] Sun Oct 29 09:35:24 EDT 2023 Diastolic Blood Pressure 59.00 mm[Hg] Sun Oct 29 09:35:24 EDT 2023 Systolic Blood Pressure 128.00 mm[Hg] [facility] Oct 29 09:35:24 EDT 4 Diastolic Blood Pressure 59.00 mm[Hg] [facility] Oct 29 09:35:24 EDT 2023 Systolic Blood Pressure 128.00 mm[Hg] [facility] Oct 09:35:24 EDT 2023 Diastolic Blood Pressure 59.00 mm[Hg] [facility] Oct 29 09:35:24 EDT 2023 Heart Rate 66.00 /min [facility] Oct 29 09:35 :24 EDT 2023 Systolic Blood Pressure 128.00 mm[Hg] [facility] Oct 29 08:38:54 EDT 2023 Diastolic Blood Pressure 59.00 mm[Hg] [facility] Oct 29 08:38:54 EDT 2023 Pulse Oximetry 95.00 % [facility] 08:38 :54 EDT 2023 Heart Rate 66.00 /min [facility] Sep 02 08:38 :54 EDT 2023 Respiratory rate 18.00 /min [facility] 08:3 8:54 EDT 4 Body temperature 98.40 [degF] [facility] Oct 08:3 8:54 EDT 4 Systolic Blood Pressure 120.00 mm[Hg] [facility] Oct 28 23:58:41 EDT 2023 Diastolic Blood Pressure 54.00 mm[Hg] [facility] Oct 28 23:58:41 EDT 2023 Pulse Oximetry 98.00 % [facility] Sep 01 23:58 :41 EDT 2023 Heart Rate 56.00 /min Sun 28 23:58 :41 EDT 2023 Respiratory rate 18.00 /min [facility] Oct 28 23:5 8:41 EDT 2023 Body temperature 98.20 [degF] [facility] Oct 28 23:5 8:41 EDT 2023 Systolic Blood Pressure 120.00 mm[Hg] Sun Oct 28 21:07:35 EDT 2023 Diastolic Blood Pressure 54.00 mm[Hg] Sun Oct 28 21:07:35 EDT 2023 Systolic Blood Pressure 120.00 mm[Hg] Sun Oct 28 21:07:35 EDT 2023 Diastolic Blood Pressure 54.00 mm[Hg] [facility] Oct 28 21:07:35 EDT 2023 Heart Rate 56.00 /min [facility] Oct 28 21:07 :35 EDT 2023 Body weight 146.20 [lb_av] [facility] Oct 28 11:37 :43 EDT 2023 Systolic Blood Pressure 134.00 mm[Hg] Mon Oct 28 09:04:38 EDT 4 Diastolic Blood Pressure 57.00 mm[Hg] Mon Oct 28 09:04:38 EDT 4 Systolic Blood Pressure 134.00 mm[Hg] Mon Oct 28 09:04:38 EDT 4 Diastolic Blood Pressure 57.00 mm[Hg] Mon Oct 28 09:04:38 EDT 4 Systolic Blood Pressure 134.00 mm[Hg] Mon Oct 28 09:04:38 EDT 4 Diastolic Blood Pressure 57.00 mm[Hg] Mon Oct 28 09:04:38 EDT 4 Systolic Blood Pressure 134.00 mm[Hg] Mon Oct 28 09:04:38 EDT 4 Diastolic Blood Pressure 57.00 mm[Hg] Mon Oct 28 09:04:38 EDT 2023 Pulse Oximetry 95.00 % Mon Oct 28 09:04 :38 EDT 4 Heart Rate 55.00 /min Mon Oct 28 09:04 :38 EDT 4 Heart Rate 55.00 /min Mon Oct 28 09:04 :38 EDT 4 Respiratory rate 18.00 /min Mon Oct 28 09:0 4:38 EDT 4 Body temperature 98.20 [degF] Mon Oct 28 09:0 4:38 EDT 4 Systolic Blood Pressure 138.00 mm[Hg] Sun Oct 27 22:23:36 EDT 2023 Diastolic Blood Pressure 63.00 mm[Hg] Sun Oct 27 22:23:36 EDT 2023 Pulse Oximetry 97.00 % Sun Oct 27 22:23 :36 EDT 2023 Heart Rate 57.00 /min Sun Oct 27 22:23 :36 EDT 4 Respiratory rate 18.00 /min Sun Oct 27 22:2 3:36 EDT 2023 Body temperature 98.30 [degF] Sun Oct 27 22:2 3:36 EDT 4 Systolic Blood Pressure 138.00 mm[Hg] Sun Oct 27 20:41:38 EDT 2023 Diastolic Blood Pressure 63.00 mm[Hg] Sun Oct 27 20:41:38 EDT 2023 Systolic Blood Pressure 138.00 mm[Hg] Sun Oct 27 20:41:38 EDT 2023 Diastolic Blood Pressure 63.00 mm[Hg] Sun Oct 27 20:41:38 EDT 2023 Heart Rate 63.00 /min Sun Oct 27 20:41 :38 EDT 2024 Body weight 141.80 [lb_av] Sun Oct 27 14:46 :50 EDT 4 Systolic Blood Pressure 117.00 mm[Hg] Sun Oct 27 09:55:22 EDT 2024 Diastolic Blood Pressure 85.00 mm[Hg] Sun Oct 27 09:55:22 EDT 4 Systolic Blood Pressure 117.00 mm[Hg] Sun Oct 27 09:55:22 EDT 4 Diastolic Blood Pressure 85.00 mm[Hg] Sun Oct 27 09:55:22 EDT 2023 Systolic Blood Pressure 117.00 mm[Hg] Sun Oct 27 09:55:22 EDT 4 Diastolic Blood Pressure 85.00 mm[Hg] Sun Oct 27 09:55:22 EDT 2023 Systolic Blood Pressure 117.00 mm[Hg] Sun Oct 27 09:55:22 EDT 2023 Diastolic Blood Pressure 85.00 mm[Hg] Sun Oct 27 09:55:22 EDT 2023 Pulse Oximetry 98.00 % Sun Oct 27 09:55 :22 EDT 2023 Heart Rate 54.00 /min Sun Oct 27 09:55 :22 EDT 2023 Heart Rate 54.00 /min Sun Oct 27 09:55 :22 EDT 4 Respiratory rate 18.00 /min Sun Oct 27 09:5 5:22 EDT 4 Body temperature 98.20 [degF] Sun Oct 27 09:5 5:22 EDT 2023 Systolic Blood Pressure 129.00 mm[Hg] Sat Oct 26 22:43:10 EDT 2023 Diastolic Blood Pressure 61.00 mm[Hg] Sat Oct 26 22:43:10 EDT 2023 Pulse Oximetry 97.00 % Sat Oct 26 22:43 :10 EDT 2023 Heart Rate 59.00 /min Sat Oct 26 22:43 :10 EDT 4 Respiratory rate 18.00 /min Sat Oct 26 22:4 3:10 EDT 2023 Body temperature 98.20 [degF] Sat Oct 26 22:4 3:10 EDT 2023 Systolic Blood Pressure 129.00 mm[Hg] Sat Oct 26 20:10:33 EDT 2023 Diastolic Blood Pressure 61.00 mm[Hg] Sat Oct 26 20:10:33 EDT 2023 Systolic Blood Pressure 129.00 mm[Hg] Sat Oct 26 20:10:33 EDT 2023 Diastolic Blood Pressure 61.00 mm[Hg] Sat Oct 26 20:10:33 EDT 4 Heart Rate 61.00 /min Sat Oct 26 20:10 :33 EDT 4 Body weight 101.60 [lb_av] Sat Oct 26 11:28 :48 EDT 2023 Systolic Blood Pressure 133.00 mm[Hg] Sat Oct 26 09:43:41 EDT 4 Diastolic Blood Pressure 68.00 mm[Hg] Sat Oct 26 09:43:41 EDT 4 Systolic Blood Pressure 133.00 mm[Hg] Sat Oct 26 09:43:41 EDT 2023 Diastolic Blood Pressure 68.00 mm[Hg] Sat Oct 26 09:43:41 EDT 4 Systolic Blood Pressure 133.00 mm[Hg] Sat Oct 26 09:43:41 EDT 4 Diastolic Blood Pressure 68.00 mm[Hg] Sat Oct 26 09:43:41 EDT 4 Heart Rate 60.00 /min Sat Oct 26 09:43 :41 EDT 4 Systolic Blood Pressure 133.00 mm[Hg] Sat Oct 26 08:34:38 EDT 4 Diastolic Blood Pressure 68.00 mm[Hg] Sat Oct 26 08:34:38 EDT 4 Pulse Oximetry 96.00 % Sat Oct 26 08:34 :38 EDT 4 Heart Rate 60.00 /min Sat Oct 26 08:34 :38 EDT 4 Respiratory rate 18.00 /min Sat Oct 26 08:3 4:38 EDT 2023 Body temperature 98.20 [degF] Sat Oct 26 08:3 4:38 EDT 4 Systolic Blood Pressure 135.00 mm[Hg] Fri Oct 25 22:55:40 EDT 4 Diastolic Blood Pressure 63.00 mm[Hg] Fri Oct 25 22:55:40 EDT 2023 Pulse Oximetry 99.00 % Fri Oct 25 22:55 :40 EDT 2023 Heart Rate 64.00 /min Fri Oct 25 22:55 :40 EDT 4 Respiratory rate 20.00 /min Fri Oct 25 22:5 5:40 EDT 2023 Body temperature 97.80 [degF] Fri Oct 25 22:5 5:40 EDT 2023 Systolic Blood Pressure 135.00 mm[Hg] Fri Oct 25 21:34:19 EDT 2023 Diastolic Blood Pressure 63.00 mm[Hg] Fri Oct 25 21:34:19 EDT 2023 Systolic Blood Pressure 135.00 mm[Hg] Fri Oct 25 21:34:19 EDT 2023 Diastolic Blood Pressure 63.00 mm[Hg] Fri Oct 25 21:34:19 EDT 2023 Heart Rate 64.00 /min Fri Oct 25 21:34 :19 EDT 2023 Systolic Blood Pressure 131.00 mm[Hg] Fri Oct 25 09:54:34 EDT 2023 Diastolic Blood Pressure 61.00 mm[Hg] Fri Oct 25 09:54:34 EDT 2023 Systolic Blood Pressure 131.00 mm[Hg] Fri Oct 25 09:50:26 EDT 2023 Diastolic Blood Pressure 61.00 mm[Hg] Fri Oct 25 09:50:26 EDT 2023 Systolic Blood Pressure 131.00 mm[Hg] Fri Oct 25 09:50:26 EDT 2023 Diastolic Blood Pressure 61.00 mm[Hg] Fri Oct 25 09:50:26 EDT 2023 Systolic Blood Pressure 131.00 mm[Hg] Fri Oct 25 09:39:08 EDT 2023 Diastolic Blood Pressure 61.00 mm[Hg] Fri Oct 25 09:39:08 EDT 2023 Pulse Oximetry 95.00 % Fri Oct 25 09:39 :08 EDT 2023 Heart Rate 58.00 /min Fri Oct 25 09:39 :08 EDT 2023 Respiratory rate 19.00 /min Fri Oct 25 09:3 9:08 EDT 2023 Body temperature 97.20 [degF] Fri Oct 25 09:3 9:08 EDT 2023 Systolic Blood Pressure 107.00 mm[Hg] [facility] Oct 24 20:35:09 EDT 2023 Diastolic Blood Pressure 73.00 mm[Hg] [facility] Oct 24 20:35:09 EDT 2023 Systolic Blood Pressure 107.00 mm[Hg] [facility] Oct 24 20:35:09 EDT 2023 Diastolic Blood Pressure 73.00 mm[Hg] [facility] Oct 24 20:35:09 EDT 2023 Systolic Blood Pressure 107.00 mm[Hg] [facility] Oct 24 20:35:09 EDT 2023 Diastolic Blood Pressure 73.00 mm[Hg] [facility] Oct 24 20:35:09 EDT 2023 Pulse Oximetry 18.00 % [facility] Oct 24 20:35 :09 EDT 2023 Heart Rate 54.00 /min [facility] Oct 24 20:35 :09 EDT 2023 Heart Rate 54.00 /min [facility] Oct 24 20:35 :09 EDT 2023 Respiratory rate 18.00 /min [facility] Oct 24 20:3 5:09 EDT 2023 Body temperature 98.50 [degF] [facility] Oct 24 20:3 5:09 EDT 2023 Systolic Blood Pressure 136.00 mm[Hg] [facility] Oct 24 10:29:40 EDT 2023 Diastolic Blood Pressure 64.00 mm[Hg] [facility] Oct 24 10:29:40 EDT 2023 Pulse Oximetry 95.00 % [facility] Oct 24 10:29 :40 EDT 2023 Heart Rate 55.00 /min [facility] Oct 24 10:29 :40 EDT 2023 Respiratory rate 18.00 /min [facility] Oct 24 10:2 9:40 EDT 2023 Body temperature 98.00 [degF] [facility] Oct 24 10:2 9:40 EDT 2023 Systolic Blood Pressure 136.00 mm[Hg] [facility] Oct 24 09:09:06 EDT 2023 Diastolic Blood Pressure 64.00 mm[Hg] [facility] Oct 24 09:09:06 EDT 2023 Systolic Blood Pressure 136.00 mm[Hg] [facility] Oct 24 09:09:06 EDT 2023 Diastolic Blood Pressure 64.00 mm[Hg] [facility] Oct 24 09:09:06 EDT 2023 Systolic Blood Pressure 136.00 mm[Hg] [facility] Oct 24 09:09:06 EDT 2023 Diastolic Blood Pressure 64.00 mm[Hg] [facility] Oct 24 09:09:06 EDT 2023 Heart Rate 55.00 /min [facility] Oct 24 09:09 :06 EDT 2023 Systolic Blood Pressure 118.00 mm[Hg] [facility] Oct 24 01:49:30 EDT 2023 Diastolic Blood Pressure 53.00 mm[Hg] [facility] Oct 24 01:49:30 EDT 2023 Pulse Oximetry 99.00 % [facility] Oct 24 01:49 :30 EDT 2023 Heart Rate 54.00 /min [facility] Oct 24 01:49 :30 EDT 4 Respiratory rate 18.00 /min [facility] Oct 24 01:4 9:30 EDT 2023 Body temperature 98.30 [degF] [facility] Oct 24 01:4 9:30 EDT 2023 Systolic Blood Pressure 118.00 mm[Hg] Wed Oct 23 21:47:02 EDT 2023 Diastolic Blood Pressure 53.00 mm[Hg] Wed Oct 23 21:47:02 EDT 2023 Systolic Blood Pressure 118.00 mm[Hg] Wed Oct 23 21:47:02 EDT 2023 Diastolic Blood Pressure 53.00 mm[Hg] Wed Oct 21:47:02 EDT 2023 Heart Rate 54.00 /min Wed Aug 27 21:47 :02 EDT 2023 Body weight 0.00 [lb_av] Wed Oct 23 15:09 :02 EDT 2023 Systolic Blood Pressure 144.00 mm[Hg] Wed Oct 23 09:12:52 EDT 2023 Diastolic Blood Pressure 71.00 mm[Hg] Wed Oct 09:12:52 EDT 2023 Heart Rate 60.00 /min Wed Oct 09:12 :52 EDT 2023 Systolic Blood Pressure 144.00 mm[Hg] Wed Oct 09:03:24 EDT 2023 Diastolic Blood Pressure 71.00 mm[Hg] Wed Oct 09:03:24 EDT 2023 Systolic Blood Pressure 144.00 mm[Hg] Wed Oct 09:03:24 EDT 2023 Diastolic Blood Pressure 71.00 mm[Hg] Wed Oct 09:03:24 EDT 2023 Systolic Blood Pressure 144.00 mm[Hg] Wed Aug 27 08:49:02 EDT 2023 Diastolic Blood Pressure 71.00 mm[Hg] Wed Aug 27 08:49:02 EDT 2023 Pulse Oximetry 95.00 % Wed Aug 27 08:49 :02 EDT 2023 Heart Rate 58.00 /min Wed Aug 27 08:49 :02 EDT 2023 Respiratory rate 18.00 /min Wed Aug 23 08:4 9:02 EDT 2023 Body temperature 98.30 [degF] Wed Aug 27 08:4 9:02 EDT 2023 Systolic Blood Pressure 135.00 mm[Hg] Wed Aug 27 00:04:34 EDT 2023 Diastolic Blood Pressure 60.00 mm[Hg] Wed Aug 27 00:04:34 EDT 2023 Pulse Oximetry 98.00 % Wed Aug 27 00:04 :34 EDT 2023 Heart Rate 60.00 /min Wed Aug 27 00:04 :34 EDT 2023 Respiratory rate 18.00 /min Wed Aug 27 00:0 4:34 EDT 2023 Body temperature 98.50 [degF] Wed Aug 27 00:0 4:34 EDT 2023 Systolic Blood Pressure 156.00 mm[Hg] SunAug 26 20:19:36 EDT 2023 Diastolic Blood Pressure 64.00 mm[Hg] SunAug 26 20:19:36 EDT 2023 Systolic Blood Pressure 135.00 mm[Hg] SunAug 26 20:19:36 EDT 2023 Diastolic Blood Pressure 60.00 mm[Hg] SunAug 26 20:19:36 EDT 2023 Heart Rate 63.00 /min SunAug 26 20:19 :36 EDT 2023 Systolic Blood Pressure 156.00 mm[Hg] SunAug 26 14:46:00 EDT 2023 Diastolic Blood Pressure 64.00 mm[Hg] SunAug 26 14:46:00 EDT 2023 Pulse Oximetry 98.00 % SunAug 26 14:46 :00 EDT 2023 Heart Rate 63.00 /min SunAug 26 14:46 :00 EDT 2023 Respiratory rate 18.00 /min SunAug 26 14:4 6:00 EDT 2023 Body temperature 98.50 [degF] SunAug 26 14:4 6:00 EDT 2023 Body Height 61.00 [in_i] SunAug 26 14:46 :00 EDT 2023 Reason for Referral Past Medical History Resolved Concerns * Problem Unspecified fall, subsequent encounter* Code: * Start Date: SunNov 25 00:00:00 EST 2023 * End Date: SunApr 17 00:00:00 EDT 2023 * Problem Type 2 diabetes mellitus without complications* Code: * Start Date: SunNov 25 00:00:00 EST 2023 * End Date: SunNov 27 00:00:00 EST 2023 * Problem Hyperlipidemia, unspecified* Code: * Start Date: SunNov 25 00:00:00 EST 2023 * End Date: SunNov 27 00:00:00 EST 2023 * Problem Essential (primary) hypertension* Code: * Start Date: SunNov 25 00:00:00 EST 2023 * End Date: SunNov 27 00:00:00 EST 2023 * Problem Chronic kidney disease, stage 3 unspecified* Code: * Start Date: SunNov 25 00:00:00 EST 2023 * End Date: SunNov 27 00:00:00 EST 2023 * Problem Cervicalgia* Code: * Start Date: SunNov 25 00:00:00 EST 2023 * End Date: SunApr 17 00:00:00 EDT 2023 * Problem Chronic kidney disease, stage 3a* Code: * Start Date: SunNov 25 00:00:00 EST 2023 * End Date: SunApr 17 00:00:00 EDT 2023 * Problem Other malaise* Code: * Start Date: SunNov 25 00:00:00 EST 2023 * End Date: SunApr 17 00:00:00 EDT 2023 * Problem Vascular dementia, unspecified severity, without behavioral disturbance, psychotic disturbance, mood disturbance, and anxiety* Code: * Start Date: SunNov 25 00:00:00 EST 2023 * End Date: SunApr 17 00:00:00 EDT 2023 * Problem Type 2 diabetes mellitus with other diabetic kidney complication* Code: * Start Date: SunApr 15 00:00:00 EDT 2023 * End Date: SunApr 17 00:00:00 EDT 2023 * Problem Proteinuria, unspecified* Code: * Start Date: SunApr 15 00:00:00 EDT 2023 * End Date: SunApr 17 00:00:00 EDT 2023
--- OUTSIDE RECORDS SUMMARY | 2025-05-13 15:10 | XMS_ITS | Clinical Summary ---
Author Organization Unknown Care Team Providers Care Veterinary Practice Manager Name Role Phone AGUSTIN PA, CALI Unavailable Unavailable CECILIA PT, ASHOK Unavailable Unavailable SHARIF MACHINE ADJUSTER LEADER, CALI Unavailable Unavailharsh JEROME OT, LATIA Unavailable Unavailable BASIL PT, FERNY Unavailable Unavailable Payers Payer Name Policy Type Policy Number Effective Date Expira tion Date MEDICARE.[facility] [id number] Problems Condition Name Condition Details Condition Category Status Onset Date Resolution Date Last Treatment Date Treating Clinician Comments PARKINSON'S DISEASE WITH DYSKINESIA, WITH FLUCTUATIONS Active 04-20 00:00: 00 HYP HRT AND CHR KDNY DIS W HRT FAIL AND STG 1-4/UNSP CHR KDNY Active 04-19 00:00: 00 ACUTE ON CHRONIC DIASTOLIC (CONGESTIVE) HEART FAILURE Active 04-19 00:00: 00 TYPE 2 DIABETES MELLITUS W DIABETIC CHRONIC KIDNEY DISEASE Active 04-19 00:00: 00 CHRONIC KIDNEY DISEASE, STAGE 3A Active 04-19 00:00: 00 PULMONARY HYPERTENSION , UNSPECIFIED Active 04-19 00:00: 00 PURE HYPERCHOLEST EROLEMIA, UNSPECIFIED Active 04-11 00:00: 00 CERVICALGIA Active 04-11 00:00: 00 OTHER RHEUMATIC MULTIPLE VALVE DISEASES Active 04-11 00:00: 00 HYPOTHYROIDI SM, UNSPECIFIED Active 04-11 00:00: 00 OBESITY, UNSPECIFIED Active 04-11 00:00: 00 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 OPERATOR (CURRENT) USE OF ASPIRIN Active 2023-11 00:00: 00 BODY MASS INDEX [BMI]30.0-30 .9, ADULT Active 04-11 00:00: 00 HISTORY OF FALLING Active 04-19 00:00: 00 PRESENCE OF INTRAOCULAR LENS Active 11-05 00:00: 00 Allergies, Adverse Reactions, Alerts Allergy Name Allergy Type Status Severity Reaction(s) Onset Date Inactive Date Treating Clinician Comments ......SULFA Propensity to adverse reactions Active 04-19 09:07: 54 CODIENE ANTITUSSIVE Propensity to adverse reactions Active 04-19 09:07: 40 PENICILLINS Propensity to adverse reactions Active 04-19 09:08: 23 Medications Ordered Medication Name Filled Medication Name Start Date Stop Date Current Medication? Ordering Clinician Indication Dosage Frequency Signature (SIG) Comments Components Nicole Hives 180 mg tablet 12-06 00:00: 00 Yes [id number] ALLERGIES 1 tablet DAILY 1 tablet DAILY (route: oral) Med Classific ation: Respirato ry Therapy Agents amitriptyli ne 25 mg tablet 12-06 00:00: 00 05-22 23:59 :00 No [id number] SLEEP 2 tablet BEDTIME 2 tablet BEDTIME (route: oral) Med Classific ation: Central Nervous System Agents aspirin 81 mg tablet,louie yed release 2023-11 00:00: 00 Yes [id number] BLOOD THINNER 1 tablet DAILY 1 tablet DAILY (route: oral) Med Classific ation: Hematolog ical Agents levothyroxi ne 25 mcg tablet 2023-11 00:00: 00 Yes [id number] THYROID 1 tablet BEFORE BREAKFAST 1 tablet BEFORE BREAKFAST (route: oral) Med Classific ation: Endocrine Multivitami n 50 Plus tablet 2023-11 00:00: 00 Yes [id number] VITAMIN 1 tablet DAILY 1 tablet DAILY (route: oral) Med Classific ation: Electroly te Balance-N utritiona l Products simvastatin 10 mg tablet 12-06 00:00: 00 Yes [id number] CHOLESTEROL 1 tablet BEDTIME 1 tablet BEDTIME (route: oral) Med Classific ation: Cardiovas cular Therapy Agents spironolact one 25 mg tablet 12-06 00:00: 00 05-14 00:00 :00 No [id number] DIURETIC 1 tablet DAILY 1 tablet DAILY (route: oral) Med Classific ation: Cardiovas cular Therapy Agents Systane (propylene glycol) 0.4 %-0.3 % eye drops 12-06 00:00: 00 04-19 00:00 :00 No [id number] DRY EYES 1 drops NEEDED 1 drops NEEDED (route: ophthalmic (eye)) Med Classific ation: Ophthalmi c Agents Tylenol Extra Strength 500 mg tablet 12-06 00:00: 00 04-19 00:00 :00 No [id number] PAIN 1 tablet NEEDED 1 tablet NEEDED (route: oral) Med Classific ation: Analgesic , Anti-infl ammatory or Antipyret ic Flonase Allergy Relief 50 mcg/actuati on nasal spray,suspe nsion 12-06 00:00: 00 Yes [id number] ALLERGIES 2 spray DAILY 2 spray DAILY (route: nasal) Med Classific ation: Respirato ry Therapy Agents Metamucil 3.4 gram/5.4 gram oral powder 2023-11 00:00: 00 Yes [id number] CONSTIPATIO N Per instruc tions DAILY Per instructio ns DAILY (route: oral) Med Classific ation: Gastroint estinal Therapy Agents Emgality 120 mg/mL subcutaneou s syringe 2023-11 00:00: 00 Yes [id number] HEADACHE 120 mg MONTHLY 120 mg MONTHLY (route: subcutaneo us) Med Classific ation: Central Nervous System Agents amlodipine 2.5 mg tablet 2023-11 00:00: 00 04-19 00:00 :00 No [id number] BLOOD PRESSURE 1 tablet DAILY 1 tablet DAILY (route: oral) Med Classific ation: Cardiovas cular Therapy Agents carvedilol 6.25 mg tablet 05-14 00:00: 00 04-19 23:59 :00 No [id number] BLOOD PRESSURE 1 tablet 2 TIMES DAILY 1 tablet 2 TIMES DAILY (route: oral) Med Classific ation: Cardiovas cular Therapy Agents furosemide 40 mg tablet 05-14 00:00: 00 04-19 23:59 :00 No [id number] FLUID RETENTION 1 tablet DAILY 1 tablet DAILY (route: oral) Med Classific ation: Cardiovas cular Therapy Agents lidocaine 5 % topical patch 10 00:00: 00 04-19 00:00 :00 No [id number] PAIN 1 adhesiv e patch, medicat ed 2 TIMES DAILY 1 adhesive patch, medicated 2 TIMES DAILY (route: topical) Med Classific ation: Dermatolo gical midodrine 5 mg tablet 2023-11 00:00: 00 04-19 00:00 :00 No [id number] HYPOTENSION 1 tablet 2 TIMES DAILY 1 tablet 2 TIMES DAILY (route: oral) Med Classific ation: Cardiovas cular Therapy Agents Santyl 250 unit/gram topical ointment 08-01 00:00: 00 09-28 00:00 :00 No [id number] WOUND Per instruc tions DAILY Per instructio ns DAILY (route: topical) Med Classific ation: Dermatolo gical acetaminoph en 500 mg capsule 2023-11 00:00: 00 Yes [id number] PAIN 1 capsule EVERY 4 HOURS 1 capsule EVERY 4 HOURS (route: oral) Med Classific ation: Analgesic , Anti-infl ammatory or Antipyret ic Artificial Tears (PF) 0.1 %-0.3 % drops in a dropperette 2023-11 00:00: 00 Yes [id number] EYES 2 dropper ette 2 TIMES DAILY 2 dropperett e 2 TIMES DAILY (route: ophthalmic (eye)) Med Classific ation: Ophthalmi c Agents carbamazepi ne 100 mg chewable tablet 2023-11 00:00: 00 Yes [id number] SEIZURES 1 tablet DAILY 1 tablet DAILY (route: oral) Med Classific ation: Central Nervous System Agents carbidopa 25 mg-levodopa 100 mg tablet 2023-11 00:00: 00 Yes [id number] PARKINSON'S 1 tablet 3 TIMES DAILY 1 tablet 3 TIMES DAILY (route: oral) Med Classific ation: Central Nervous System Agents fexofenadin e 60 mg tablet 2023-11 00:00: 00 04-19 23:59 :00 No [id number] ALLERGIES 1 tablet DAILY 1 tablet DAILY (route: oral) Med Classific ation: Respirato ry Therapy Agents Miralax 17 gram oral powder packet 2023-11 00:00: 00 Yes [id number] CONSTIPATIO N 1 packet DAILY 1 packet DAILY (route: oral) Med Classific ation: Gastroint estinal Therapy Agents ciprofloxac in 500 mg tablet 2023-11 00:00: 00 10-14 23:59 :00 No [id number] ANTIBIOTICS 1 tablet 2 TIMES DAILY 1 tablet 2 TIMES DAILY (route: oral) Med Classific ation: Anti-Infe ctive Agents ciprofloxac in 500 mg tablet 2023-11 00:00: 00 11-24 00:00 :00 No [id number] UTI 1 tablet 2 TIMES DAILY 1 tablet 2 TIMES DAILY (route: oral) Med Classific ation: Anti-Infe ctive Agents Allergy Relief (fexofenadi ne) 180 mg tablet 04-19 00:00: 00 Yes [id number] ALLERGIES ... 1 tablet DAILY 1 tablet DAILY (route: oral) Med Classific ation: Respirato ry Therapy Agents amlodipine 5 mg tablet 04-19 00:00: 00 Yes [id number] HIGH BLOOD PRESSURE 1 tablet DAILY 1 tablet DAILY (route: oral) Med Classific ation: Cardiovas cular Therapy Agents Vital Signs Vital Name Observation Time Observation Value Commen ts Temperature 2025-05-04 12:00:00.000 98.8 [degF] Temperature 2025-05-01 11:11:00.000 97.1 [degF] Temperature 2025-04-28 15:37:00.000 98.2 [degF] Temperature 2025-04-27 11:22:00.000 98.6 [degF] Temperature 2025-04-24 13:17:00.000 98.3 [degF] Temperature 2025-04-23 14:32:00.000 98.1 [degF] Temperature 2025-04-20 12:16:00.000 98.3 [degF] Temperature 2025-04-19 09:30:00.000 97.1 [degF] BMI (%) 2025-04-19 09:18:32.000 26 kg/m2 Height 2025-04-19 09:18:25.000 61 [in_us] Pulse 2025-05-04 12:00:00.000 62 /min Pulse 2025-05-01 11:11:00.000 63 /min Pulse 2025-04-28 15:37:00.000 64 /min Pulse 2025-04-27 11:22:00.000 60 /min Pulse 2025-04-24 13:17:00.000 60 /min Pulse 2025-04-23 14:32:00.000 61 /min Pulse 2025-04-20 12:16:00.000 60 /min Pulse 2025-04-19 09:30:00.000 56 /min O2 Saturation (%) 2025-05-04 12:00:00.000 96 % O2 Saturation (%) 2025-05-01 11:11:00.000 95 % O2 Saturation (%) 2025-04-28 15:39:00.000 96 % O2 Saturation (%) 2025-04-27 11:22:00.000 98 % O2 Saturation (%) 2025-04-24 13:18:00.000 97 % O2 Saturation (%) 2025-04-23 14:34:00.000 97 % O2 Saturation (%) 2025-04-20 12:16:00.000 97 % O2 Saturation (%) 2025-04-19 09:30:00.000 98 % Respirations 2025-05-04 12:00:00.000 18 /min Respirations 2025-05-01 11:11:00.000 19 /min Respirations 2025-04-28 15:37:00.000 18 /min Respirations 2025-04-27 11:22:00.000 18 /min Respirations 2025-04-24 13:17:00.000 17 /min Respirations 2025-04-23 14:32:00.000 17 /min Respirations 2025-04-20 12:16:00.000 18 /min Respirations 2025-04-19 09:30:00.000 18 /min Weight (lbs) 2025-05-01 11:15:00.000 140 [lb_av] Weight (lbs) 2025-04-23 14:34:00.000 140 [lb_av] Weight (lbs) 2025-04-19 09:18:32.000 140 [lb_av] Systolic Blood Pressure 2025-05-04 12:00:00.000 148 mm [Hg] Systolic Blood Pressure 2025-05-01 11:11:00.000 132 mm [Hg] Systolic Blood Pressure 2025-04-28 15:37:00.000 138 mm [Hg] Systolic Blood Pressure 2025-04-27 11:22:00.000 158 mm [Hg] Systolic Blood Pressure 2025-04-24 13:17:00.000 120 mm [Hg] Systolic Blood Pressure 2025-04-23 14:32:00.000 134 mm [Hg] Systolic Blood Pressure 2025-04-20 12:16:00.000 120 mm [Hg] Systolic Blood Pressure 2025-04-19 09:30:00.000 180 mm [Hg] Diastolic Blood Pressure 2025-05-04 12:00:00.000 74 mm [Hg] Diastolic Blood Pressure 2025-05-01 11:11:00.000 64 mm [Hg] Diastolic Blood Pressure 2025-04-28 15:37:00.000 80 mm [Hg] Diastolic Blood Pressure 2025-04-27 11:22:00.000 62 mm [Hg] Diastolic Blood Pressure 2025-04-24 13:17:00.000 68 mm [Hg] Diastolic Blood Pressure 2025-04-23 14:32:00.000 72 mm [Hg] Diastolic Blood Pressure 2025-04-20 12:16:00.000 60 mm [Hg] Diastolic Blood Pressure 2025-04-19 09:30:00.000 86 mm [Hg] Plan of Treatment Planned Activity Planned Date Details Comments Future Scheduled Test AGENCY MAY PERFORM A RESUMPTION OF CARE VISIT FOLLOWING ANY HOSPITAL ADMISSION. PT TO EVALUATE, OBSERVE / ASSESS, AND MONITOR, MACHINE ADJUSTER LEADER TO OBSERVE AND MONITOR, PROVIDE SKILLED THERAPEUTIC INTERVENTION, ACTIVITY, EDUCATION, AND TRAINING TO ADDRESS; [code = AGENCY MAY PERFORM A RESUMPTION OF CARE VISIT FOLLOWING ANY HOSPITAL ADMISSION. PT TO EVALUATE, OBSERVE / ASSESS, AND MONITOR, MACHINE ADJUSTER LEADER TO OBSERVE AND MONITOR, PROVIDE SKILLED THERAPEUTIC INTERVENTION, ACTIVITY, EDUCATION, AND TRAINING TO ADDRESS;] Future Scheduled Test BED MOBILI TY (PT/MACHINE ADJUSTER LEADER) [code = BED MOBILITY (PT/MACHINE ADJUSTER LEADER)] Future Scheduled Test SIT TO/FRO M STAND TRANSFERS (PT/MACHINE ADJUSTER LEADER) [code = SIT TO/FROM STAND TRANSFERS (PT/MACHINE ADJUSTER LEADER)] Future Scheduled Test PT/MACHINE ADJUSTER LEADER TO PROVIDE GAIT TRAINING FOR IMPROVED MOBILITY AND /OR TO NORMALIZE GAIT PATTERN [code = PT/MACHINE ADJUSTER LEADER TO PROVIDE GAIT TRAINING FOR IMPROVED MOBILITY AND /OR TO NORMALIZE GAIT PATTERN] Future Scheduled Test NEUROMUSCU LAR RE-EDUCATION / BALANCE / POSTURAL CONTROL (PT) [code = NEUROMUSCULAR RE-EDUCATION / BALANCE / POSTURAL CONTROL (PT)] Future Scheduled Test THERAPEUTI C EXERCISES AND ESTABLISHING A HOME EXERCISE PROGRAM (PT/MACHINE ADJUSTER LEADER) [code = THERAPEUTIC EXERCISES AND ESTABLISHING A HOME EXERCISE PROGRAM (PT/MACHINE ADJUSTER LEADER)] Future Scheduled Test PT/MACHINE ADJUSTER LEADER TO IDENTIFY FALL RISK FACTORS; EDUCATE THE PATIENT/CAREGIVER ON WAYS TO REDUCE FALL RISK FACTORS AND ESTABLISH HOME EXERCISE PROGRAM TO MINIMIZE FALL RISK. MAY TEACH THE PATIENT FLOOR RECOVERY WHEN CLINICALLY APPROPRIATE [code = PT/MACHINE ADJUSTER LEADER TO IDENTIFY FALL RISK FACTORS; EDUCATE THE PATIENT/CAREGIVER ON WAYS TO REDUCE FALL RISK FACTORS AND ESTABLISH HOME EXERCISE PROGRAM TO MINIMIZE FALL RISK. MAY TEACH THE PATIENT FLOOR RECOVERY WHEN CLINICALLY APPROPRIATE] Future Scheduled Test PT / MACHINE ADJUSTER LEADER T O EDUCATE ON HYPERTENSION SELF-MANAGEMENT [code = PT / MACHINE ADJUSTER LEADER TO EDUCATE ON HYPERTENSION SELF-MANAGEMENT] Future Scheduled Test PT / MACHINE ADJUSTER LEADER T O EDUCATE ON HEART FAILURE SELF-MANAGEMENT [code = PT / MACHINE ADJUSTER LEADER TO EDUCATE ON HEART FAILURE SELF-MANAGEMENT] Future Scheduled Test PT TO ASSE SS / MACHINE ADJUSTER LEADER TO MONITOR FOR HEART FAILURE EXACERBATION AND RECORD PATIENT REPORTED WEIGHT, AND NOTIFY THE PHYSICIAN AND/OR THE RN CLINICAL FEDERAL MEDIATION COMMISSIONER FOR PHYSICIAN NOTIFICATION OF HF EXACERBATION (2LB WEIGHT GAIN IN 1 DAY, 5LBS IN A WEEK OR 5 LBS OVER BASELINE; INCREASED SOB, EDEMA, NEEDING MORE PILLOWS AT NIGHT, CRACKLES IN BASIS OF THE LUNGS OR PMI SHIFT) [code = PT TO ASSESS / MACHINE ADJUSTER LEADER TO MONITOR FOR HEART FAILURE EXACERBATION AND RECORD PATIENT REPORTED WEIGHT, AND NOTIFY THE PHYSICIAN AND/OR THE RN CLINICAL FEDERAL MEDIATION COMMISSIONER FOR PHYSICIAN NOTIFICATION OF HF EXACERBATION (2LB WEIGHT GAIN IN 1 DAY, 5LBS IN A WEEK OR 5 LBS OVER BASELINE; INCREASED SOB, EDEMA, NEEDING MORE PILLOWS AT NIGHT, CRACKLES IN BASIS OF THE LUNGS OR PMI SHIFT)] Future Scheduled Test AGENCY MAY PERFORM A RESUMPTION OF CARE VISIT FOLLOWING ANY HOSPITAL ADMISSION. OT TO EVALUATE, OBSERVE / ASSESS, AND MONITOR, FINANCIAL SALES MANAGER TO OBSERVE AND MONITOR, PROVIDE SKILLED THERAPEUTIC INTERVENTION, ACTIVITY, EDUCATION, AND TRAINING TO ADDRESS SAFETY AND INDEPENDENCE OF ADLS AND FUNCTIONAL TRANSFERS IN HOME ENVRIONMENT. BATHING/SHOWERING (OT/FINANCIAL SALES MANAGER) ACTIVITIES OF DAILY LIVING (OT/ARIN) TOILET TRANSFER (OT/ARIN) BATH/SHOWER TRANSFER (OT/FINANCIAL SALES MANAGER) THERAPEUTIC EXERCISE (OT/FINANCIAL SALES MANAGER) OT / ARIN TO EDUCATE ON DIABETES SELF- MANAGEMENT OT/FINANCIAL SALES MANAGER TO MONITOR AND EDUCATE ON OXYGEN SATURATION DURING ADLS/IADLS, NOTIFY PHYSICIAN AND/OR THE RN CLINICAL FEDERAL MEDIATION COMMISSIONER FOR PHYSICIAN NOTIFICATION AND IF O2 SATS BELOW 90% AFTER 10 MIN OF REST. OT/ARIN MAY EDUCATE ON PAIN MANAGEMENT CLINICALLY INDICATED, INCLUDING NON-PHARMACOLOGICAL PAIN REDUCTION TECHNIQUES OT / ARIN TO IDENTIFY FALL RISK FACTORS; EDUCATE THE PATIENT/CAREGIVER ON WAYS TO REDUCE FALL RISK FACTORS AND ESTABLISH HOME EXERCISE PROGRAM TO MINIMIZE FALL RISK. MAY TEACH THE PATIENT FLOOR RECOVERY WHEN CLINICALLY APPROPRIATE. OT/FINANCIAL SALES MANAGER TO EDUCATE ON HEART FAILURE SELF-MANAGEMENT OT/FINANCIAL SALES MANAGER TO EDUCATE ON HYPERTENSION SELF-MANAGEMENT OT / FINANCIAL SALES MANAGER TO EDUCATE ON PARKINSONS SELF MANAGEMENT [code = AGENCY MAY PERFORM A RESUMPTION OF CARE VISIT FOLLOWING ANY HOSPITAL ADMISSION. OT TO EVALUATE, OBSERVE / ASSESS, AND MONITOR, FINANCIAL SALES MANAGER TO OBSERVE AND MONITOR, PROVIDE SKILLED THERAPEUTIC INTERVENTION, ACTIVITY, EDUCATION, AND TRAINING TO ADDRESS SAFETY AND INDEPENDENCE OF ADLS AND FUNCTIONAL TRANSFERS IN HOME ENVRIONMENT. BATHING/SHOWERING (OT/ARIN) ACTIVITIES OF DAILY LIVING (OT/FINANCIAL SALES MANAGER) TOILET TRANSFER (OT/FINANCIAL SALES MANAGER) BATH/SHOWER TRANSFER (OT/ARIN) THERAPEUTIC EXERCISE (OT/ARIN) OT / ARIN TO EDUCATE ON DIABETES SELF- MANAGEMENT OT/FINANCIAL SALES MANAGER TO MONITOR AND EDUCATE ON OXYGEN SATURATION DURING ADLS/IADLS, NOTIFY PHYSICIAN AND/OR THE RN CLINICAL FEDERAL MEDIATION COMMISSIONER FOR PHYSICIAN NOTIFICATION AND IF O2 SATS BELOW 90% AFTER 10 MIN OF REST. OT/ARIN MAY EDUCATE ON PAIN MANAGEMENT CLINICALLY INDICATED, INCLUDING NON-PHARMACOLOGICAL PAIN REDUCTION TECHNIQUES OT / ARIN TO IDENTIFY FALL RISK FACTORS; EDUCATE THE PATIENT/CAREGIVER ON WAYS TO REDUCE FALL RISK FACTORS AND ESTABLISH HOME EXERCISE PROGRAM TO MINIMIZE FALL RISK. MAY TEACH THE PATIENT FLOOR RECOVERY WHEN CLINICALLY APPROPRIATE. OT/FINANCIAL SALES MANAGER TO EDUCATE ON HEART FAILURE SELF-MANAGEMENT OT/ARIN TO EDUCATE ON HYPERTENSION SELF-MANAGEMENT OT / FINANCIAL SALES MANAGER TO EDUCATE ON PARKINSONS SELF MANAGEMENT] Goal Patient Goal - G ET BACK TO WALKING TO THE BATHROOM ... Goal Provider Goal - Goal Provider Goal - PT STG:PATIENT WILL DEMONSTRATE IMPROVED BED MOBILITY TO REDUCE THE RISK OF SKIN INTEGRITY ISSUES AND/OR PAIN FROM MODERATE ASSISTANCE TO MINIMAL ASSISTANCE IN 3 WEEKS ... Goal Provider Goal - PT STG: PATIENT WILL DEMONSTRATE IMPROVED ABILITY TO PERFORM SIT TO/FROM STAND TRANSFERS TO REDUCE THE RISK OF SKIN BREAKDOWN AND REDUCE FALL RISK FROM MAX ASSIST FROM NORMAL HEIGHT CHAIR TO MINIMAL ASSISTANCE FROM NORMAL HEIGHT CHAIR TO BE ACHIEVED IN 3 WEEKS ... Goal Provider Goal - PT LTG: PATIENT WILL DEMONSTRATE IMPROVED SAFE FUNCTIONAL MOBILITY BY IMPROVING AMBULATION FROM CONTACT GUARD ASSIST WITH ROLLATOR AND FLEXED TRUNK FOR 10 FEET TO AMBULATING WITH CONTACT GUARD ASSIST 30 FEET WITH ROLLATOR IN ORDER TO ACCESS THE BATHROOM IN 6 WEEKS ... Goal Provider Goal - PT LTG: PATIENT WILL DEMONSTRATE REDUCED FALL RISK EVIDENCED BY IMPROVING TINETTI SCORE FROM 14/28 YO 18/28 IN 6 WEEKS ... Goal Provider Goal - PT LTG: PATIENT WILL DEMONSTRATE INCREASED STRENGTH OF BILATERAL LOWER EXTREMITIES FROM 3+/5TO 4/5 IN ORDER TO FACILITATE IMPROVED TRANSFERS AND AMBULATION IN 6 WEEKS Goal Provider Goal - PT LTG: PATIENT/CAREGIVER WILL DEMONSTRATE ADHERENCE TO FALL REDUCTION SELF-MANAGEMENT AND REDUCING FALL RISK FACTORS TO MINIMIZE FALL RISK BY END OF EPISODE PT LTG: PATIENT WILL BE INDEPENDENT WITH IMPLEMENTATION OF HEP WITHIN 3 PT LTG: CAREGIVER WILL BE INDEPENDENT ASSISTING PATIENT TO COMPLETE HEP WITHIN 3 Goal Provider Goal - PT GOAL: PATIENT/CAREGIVER WILL BE ABLE TO IDENTIFY SIGNS OF EXACERBATION OF HYPERTENSION AND WILL VERBALIZE/DEMONSTRATE AN ABILITY TO ADHERE TO HYPERTENSION SELF-MANAGEMENT AND LIFE-STYLE CHANGES BY END OF EPISODE Goal Provider Goal - PT STG: PATIENT WILL BE ABLE TO WEIGH SELF WITH USE OF ROLLATOR AND MIN ASSIST IN 6 WEEKS PT LTG: PATIENT/CAREGIVER WILL BE ABLE TO IDENTIFY SIGNS OF EXACERBATION OF HEART FAILURE AND VERBALIZE / DEMONSTRATE HOW TO MANAGE SYMPTOMS AND HOW TO ADHERE TO HEART FAILURE SELF-MANAGEMENT AND LIFE-STYLE CHANGES BY END OF EPISODE. Goal Provider Goal - PT GOAL: PATIENTS HEART FAILURE WILL REMAIN WELL CONTROLLED THROUGHOUT EPISODE OF CARE. Goal Provider Goal - OT STG: PATIENT WILL BATHING FROM SPONGE BATHS TO MAX A IN SHOWER WITH USE OF AE NEEDED WITHIN 3 WEEKS. OT LTG: PATIENT WILL DEMONSTRATE IMPROVED ABILITY TO PERFORM BATHING/SHOWERING AND REDUCE CAREGIVER BURDEN FROM UNABLE IN SHOWER TO MAX/MOD A WITHIN 5 WEEKS. OT LTG: PATIENT WILL DEMONSTRATE IMPROVEMENT IN MODIFIED AYANNA INDEX SCORE FROM 59 TO 63 INDICATING DECREASED DEPENDENCY ON CAREGIVER ASSISTANCE WITH ACTIVITIES OF DAILY LIVING WITHIN 5 WEEKS. OT LTG: PATIENT WILL DEMONSTRATE IMPROVED ABILITY TO PERFORM TOILET TRANSFERS TO REDUCE FALL RISK AND RISK OF INCONTINENCE AND UTI DEVELOPMENT FROM MIN A/CGA TO SBA WITHIN 5 WEEKS. OT STG: PATIENT WILL SAFELY COMPLETE SHOWER TRANSFER FROM UNABLE TO MOD A USING AE NEEDED WITHIN 3 WEEKS. OT LTG: PATIENT WILL DEMONSTRATE IMPROVED ABILITY AND SAFETY TO PERFORM BATH/SHOWER TRANSFER FROM UNABLE TO MIN A WITHIN 5 WEEKS. OT LTG: PATIENT WILL DEMONSTRATE IMPROVED BUE MUSCLE STRENGTH EVIDENCED BY AN IMPROVEMENT IN MMT/FUNCTIONAL STRENGTH FROM 4-/5 TO 4/5 WITHIN 5 WEEKS IN ORDER TO COMPLETE ADLS. OT GOAL: PATIENT/CAREGIVER WILL BE ABLE TO IDENTIFY SIGNS OF HYPER- AND HYPOGLYCEMIA AND VERBALIZE HOW TO MANAGE SYMPTOMS. OT LTG: PATIENT WILL MAINTAIN OXYGEN SATURATION WITHIN PHYSICIAN ORDERED PARAMETERS THROUGHOUT THE EPISODE OF CARE. OT LTG: PATIENT WILL DEMONSTRATE UNDERSTANDING OF PAIN MANAGEMENT TECHNIQUES EVIDENCED BY REDUCED PAIN IN HEAD FROM 5 TO 4 WITHIN 5 WEEKS. OT LTG: PATIENT/CAREGIVER WILL BE ABLE TO IMPLEMENT RECOMMENDATIONS SPECIFIC TO FALL REDUCTION FOR IMPROVED ADL/IADL COMPLETION AND HOME SAFETY BY END OF EPISODE. OT LTG: PATIENT WILL BE INDEPENDENT WITH IMPLEMENTATION OF HEP WITHIN 5 WEEKS. OT LTG: PATIENT/CAREGIVER WILL BE ABLE TO IDENTIFY SIGNS OF EXACERBATION OF HEART FAILURE AND VERBALIZE / DEMONSTRATE HOW TO MANAGE SYMPTOMS AND HOW TO ADHERE TO HEART FAILURE SELF-MANAGEMENT AND LIFE-STYLE CHANGES BY END OF EPISODE. OT GOAL: PATIENT/CAREGIVER WILL BE ABLE TO IDENTIFY SIGNS OF EXACERBATION OF HYPERTENSION AND WILL VERBALIZE/DEMONSTRATE AN ABILITY TO ADHERE TO HYPERTENSION SELF-MANAGEMENT AND LIFE-STYLE CHANGES BY END OF EPISODE OT GOAL: PATIENT/CAREGIVER WILL VERBALIZE UNDERSTANDING OF A PARKINSON'S SELF-MANAGEMENT AND LIFE-STYLE CHANGES BY END OF EPISODE. Encounters Start Date/Time End Date/Time Encounter Type Admission Type Attending [facility] Care Facility Care Department Encounter ID Discharge Date Discharge Status Discharge Condition Discharge Reason Percent Goals Met 2025-04-19 00:00:00 2025-06-17 00:00:00 Outpatient ASHOK CASTELLANOS [facility] [id number]
--- NOTE | 2025-05-13 16:23 | ED_ITS ---
HPI - General Adult General Chief complaint: Recheck/Abnormal Lab/Rx Stated complaint: hyperkalemia, headache Time Seen by Provider: 05/13/25 16:13 History of Present Illness HPI narrative: 89-year-old female with history of chronic neck pain and headache presents to the emergency department for evaluation for outpatient labs showing hyperkalemia. Patient denies any acute pain, family states the headache and neck pain are chronic for her. On 05/11 patient had a potassium of 6.5. Related Data Allergies Allergy/AdvReac Type Severity Reaction Status Date / Time codeine Allergy Unknown Unknown Verified 05/22/25 07:28 Penicillins Allergy Unknown Unknown Verified 05/22/25 07:28 Sulfa (Sulfonamide Allergy Unknown Unknown Verified 05/22/25 07:28 Antibiotics) Review of Systems 2 Review of Systems: All systems reviewed & are unremarkable except as noted in HPI and below Exam 2 Narrative: APPEARANCE: Uncomfortable appearing HEAD: normocephalic, atraumatic. EYES: PERRLA/EOMI, conjunctivae clear. NOSE: Normal no drainage EARS:TMS clear with good light reflex. THROAT: Pharynx clear, no exudate. NECK: Supple. No adenopathy, no masses. RESPIRATORY: Airway patent, respirations nonlabored. Clear to auscultation bilaterally, no rales, rhonchi, wheezing. CARDIOVASCULAR: Regular rate and rhythm without murmurs rubs or gallops. ABDOMINAL: Soft, nontender, nondistended, normal bowel sounds MUSCULOSKELETAL: Moves all extremities. Strength/ROM intact, No edema, No calf tenderness. NEURO: Alert. Cranial nerves II through XII intact. Grossly intact SKIN: Warm, dry. Normal Color Course Vital Signs Vital signs: Vital Signs Temperature 97.9 F 05/13/25 15:07 Pulse Rate 65 05/13/25 15:07 Respiratory Rate 16 05/13/25 15:07 Blood Pressure 95/45 L 05/13/25 15:07 Pulse Oximetry 97 05/13/25 15:07 Oxygen Delivery Room Air 05/13/25 15:07 Temperature 97.9 F 05/13/25 15:07 Pulse Rate 85 05/13/25 18:30 Respiratory Rate 14 05/13/25 18:30 Blood Pressure 162/80 H 05/13/25 18:30 Pulse Oximetry 96 05/13/25 18:30 Oxygen Delivery Room Air 05/13/25 16:34 Medical Decision Making MDM Narrative Medical decision making narrative: 89-year-old female presents to the emergency department for evaluation for hyperkalemia. Patient's potassium today was 4.7. Patient was provided a L of IV fluids and medication for pain control. Patient will be discharged back to [facility]. Vital Signs Vital Signs: Vital Signs Temperature 97.9 F 05/13/25 15:07 Pulse Rate 65 05/13/25 15:07 Respiratory Rate 16 05/13/25 15:07 Blood Pressure 95/45 L 05/13/25 15:07 Pulse Oximetry 97 05/13/25 15:07 Oxygen Delivery Room Air 05/13/25 15:07 Temperature 97.9 F 05/13/25 15:07 Pulse Rate 85 05/13/25 18:30 Respiratory Rate 14 05/13/25 18:30 Blood Pressure 162/80 H 05/13/25 18:30 Pulse Oximetry 96 05/13/25 18:30 Oxygen Delivery Room Air 05/13/25 16:34 Lab Data 05/13/25 16:26 05/13/25 16:26 Labs: Lab Results 05/13/25 Range/Units 16:26 WBC 6.6 (4.5-10.0) K/mm3 RBC 4.39 (4.2-5.4) M/mm3 Hgb 12.0 (12.0-15.0) g/dL Hct 38.9 (37.0-47.0) % MCV 88.6 (80-100) fl MCH 27.3 (26-34) pg MCHC 30.8 L (32-36) g/dl RDW 15.6 H (11.5-14.5) % Plt Count 261 (150-375) k/mm3 MPV 9.4 (7.4-10.4) fl Immature Gran % (Auto) 0.8 H (0-0.5) % Neut % (Auto) 59.5 (45.5-73.1) % Lymph % (Auto) 27.0 (18.3-44.2) % [place] % (Auto) 11.3 H (2.6-8.5) % Eos % (Auto) 1.1 (0-4.4) % Baso % (Auto) 0.3 (0.2-1.2) % Lymph # (Auto) 1.79 (0.9-3.2) K/mm3 [place] # (Auto) 0.8 H (0.1-0.6) K/mm3 Eos # (Auto) 0.1 (0-0.3) K/mm3 Baso # (Auto) 0.0 (0.0-0.1) K/mm3 Abs Immat Gran (auto) 0.05 H (0.00-0.031) K/mm3 Absolute Neuts (auto) 4.0 (1.3-6.7) K/mm3 Absolute Nucleated RBC 0.000 (0.0-0.012) K/mm3 Nucleated RBC % 0.0 (0.0-0.2) % Sodium 139 (137-145) mmol/L Potassium 4.7 (3.4-5.0) mmol/L Chloride 107 (98-107) mmol/L Carbon Dioxide 26 (22-30) mmol/L Anion Gap 6 (4-12) mmol/L BUN 27 H (7-17) mg/dL Creatinine 1.06 H (0.7-1.0) mg/dL Estim Creat Clear Calc Not Reportable Estimated GFR 49 L (59 - ) Glucose 117 H (65-110) mg/dL Calcium 9.4 (8.4-10.2) mg/dL Total Bilirubin 0.2 (0.2-1.3) mg/dL AST 42 H (14-36) U/L ALT 14 (6-35) U/L Alkaline Phosphatase 93 (38-126) U/L Total Protein 7.2 (6.3-8.2) g/dL Albumin 3.7 (3.5-5.1) g/dL Discharge Plan Discharge Clinical Impression: History of hyperkalemia Patient Disposition: Home Condition: Stable Instructions: Antibiotic Form, Hyperkalemia (ED) Additional Instructions: Your potassium is 4.7 Patient Language: Cuban Follow-up/Referrals: PHYSICIAN NOT ON STAFF,NONSTAFF [Primary Care Provider] -
[2025-05-13 16:33] LABS: Hematocrit 38.9 % (37.0-47.0); Hemoglobin 12.0 g/dL (12.0-15.0); Immature Granulocyte Percent A 0.8 % (0-0.5); Lymphocytes Absolute Auto 1.79 K/mm3 (0.9-3.2); Mean Corpuscular HGB Conc 30.8 g/dl (32-36); Mean Corpuscular Hemoglobin 27.3 pg (26-34); Mean Corpuscular Volume 88.6 fl (80-100); Nucleated Red Blood Cells Absolute Auto 0.000 K/mm3 (0.0-0.012); Nucleated Red Blood Cells Perc 0.0 % (0.0-0.2); Platelet Count Result 261 k/mm3 (150-375); Red Blood Count 4.39 M/mm3 (4.2-5.4); White Blood Count 6.6 K/mm3 (4.5-10.0)
[2025-05-13 16:34] VITALS: BP 173/69; PULSE 57; RESP 14; O2SAT 99
[2025-05-13 16:45] LABS: Alanine Aminotransferase 14 U/L (6-35); Albumin Level 3.7 g/dL (3.5-5.1); Alkaline Phosphatase 93 U/L (38-126); Anion Gap 6 mmol/L (4-12); Aspartate Amino Transferase 42 U/L (14-36); Bilirubin,Total 0.2 mg/dL (0.2-1.3); Blood Urea Nitrogen 27 mg/dL (7-17); Calcium 9.4 mg/dL (8.4-10.2); Carbon Dioxide 26 mmol/L (22-30); Chloride 107 mmol/L (98-107); Estimated Glomerular Filt Rate 49; Glucose 117 mg/dL (65-110); Potassium 4.7 mmol/L (3.4-5.0); Sodium 139 mmol/L (137-145); Total Protein 7.2 g/dL (6.3-8.2)
[2025-05-13] MEDS: ACETAMINOPHEN 500 MG TABLET 1000 MG PO (16:56)
[2025-05-13] MEDS: SODIUM CHLORIDE 0.9% IV 1,000 ML 999 ML IV CONT (16:57)
--- OUTSIDE RECORDS SUMMARY | 2025-05-13 17:14 | XMS_ITS | Encounter Summary ---
Author Organization [facility] Address [address] [place] [address] Phone Care Team Providers Care Flexboard Operator Name Role Phone Otf Young MD Primary Care Provi patricia Fede Mills Primary Care Provider Lynda Silvestre MD Unavailable [phone] Victor Manuel Real MD Unavailable [phone] Nazario OsmanM Unavailable [phone] Concha Prakash RN Unavailable [phone] Concha Prakash RN Unavailable [phone] Encounter Details Date Type Department Care Team (Late st Contact Info) Description 02/04/2018 Orders Only [facility] ProviderCarole MD [address] [place] [id number] Social History Tobacco Use Types Packs/Day Years Used Date Smoking Tobacco: Never Smokeless Tobacco: Never Alcohol Use Standard Drinks/Week Comments No 0 (1 standard drink = 0.6 oz pur e alcohol) Comments No Sex and Gender Information Value Date Recorded Sex Assigned at Not on file Legal Sex Female 11:52 PM [employer] Gender Identity Not on file Sexual Orientation [...] documented as of this encounter Care Teams Flexboard Operator Relationship Specialty Start Date End Date Otf Young MD PCP - General 02/02/17 07/03/22 Fede Mills PA [address] [facility] [address] [place] [address] PCP - General Internal Medicine 07/04/22 Lynda Silvestre MD [address] [place] [address] Referring Physician Ophthalmology 11/13/22 Victor Manuel Real MD [address] [facility] [address] [place] [address] Consulting Physician Neurology 01/18/24 Nazario Osman DPM [address] [place] [address] Consulting Physician Orthotics 01/18/24 Concha Prakash, LAMINE [address] [place] [address] [address] [place] [address] Cigarette Seller 04/13/25 04/29/25 Concha Prakash, LAMINE [address] [facility] [address] [place] [address] Cigarette Seller 05/06/25 documented as of this encounter
--- OUTSIDE RECORDS SUMMARY | 2025-05-13 17:14 | XMS_ITS | Referral Summary ---
Author Organization [facility] Address [address] [place] [address] Care Team Providers Care Marine Geologist Name Role Phone Fede Mills Primary Care Provider Lynda Silvestre MD Unavailable [phone] Victor Manuel Real MD Unavailable [phone] Nazario Osman DPM Unavailable Concha Prakash RN Unavailable [phone] Encounters Date Type Department Care Team Description 05/12/2025 Telephone [facility] at [address] [place] [address] Omar Briceño NP 05/09/2025 2:36 PM CDT - 05/09/2025 11:59 PM CDT Hospital Encounter [facility] AMBULANCE BILLING Discharge Disposition: Discharge to home or self care 05/06/2025 12:02 PM CDT - 05/09/2025 2:59 PM CDT Hospital Encounter [facility] Acute Medicine [address] [place] [address] [id number] Angelica Eagle MD Kheirkhahan, Nazanin, MD Weakness (Primary Dx) Discharge Disposition: Discharge to SNF 05/06/2025 Telephone [facility] at [address] [address] Fede Mills PA Concerns for sudden weakness this morning 04/21/2025 3:00 PM CDT Office Visit [facility] at [address] [phone] Fede Mills PA Hospital discharge follow-up (Primary Dx); Type 2 diabetes mellitus with microalbuminuria, without long-term current use of insulin (HCC); Hypertension, essential; Stage 3a chronic kidney disease (HCC); Acute chest pain; Hypertensive urgency; Intractable headache, unspecified chronicity pattern, unspecified headache type; Hyperkalemia; Acquired hypothyroidism; Wheelchair dependent; Parkinson's disease with dyskinesia, with fluctuations (HCC) 04/20/2025 Telephone [facility] Primary [facility] at [address] [address] Fede Mills PA Medical Question/Miscellaneo us 04/14/2025 Telephone [facility] at [address] [address] Fede Mills PA Additional Services Or Orders 04/14/2025 10:25 AM CDT Lab [address] [address] Hyperkalemia 04/12/[address] [place] [address] Lupe Oliveira, LAMINE [facility] 04/10/2025 3:25 AM CDT - 04/11/2025 2:10 PM CDT Hospital Encounter [facility] IM[facility] [address] [place] [address] Cuco Luke MD Holland, Kristy Lynn, MD [...] 11/22/2023 Assessment & Plan (12/27/2023 1:32 PM STATE EDITOR): -new diagnosis -reported in bilateral lower extremities [...] 07/04/2022 Assessment & Plan (12/27/2023 1:35 PM STATE EDITOR): -chronic -previously taking 25 mcg of levothyroxine -discontinued during hospitalization from 11/22/2023-11/25/2023 senior living (current) use of aspirin 01/10/2022 Generalized edema 11/02/2021 Assessment & Plan (11/02/2021 10:33 AM STATE EDITOR): Check tsh Cbc bnp; for eval Try restrict salt Acute bilateral low back pain without sciatica 1 Assessment & Plan (11/02/2021 10:39 AM STATE EDITOR): Trial pt to see if can help [...] 06/03/2020 Assessment & Plan (11/02/2021 10:34 AM STATE EDITOR): Recheck to confirm not worseining prior xstool hem neg Assessment & Plan (06/16/2021 10:38 AM CDT): Iron up to iron sat up to 16 and hgb to 11.5 and geteting to nl and cont iron and check Assessment & Plan (01/10/2021 11:25 AM STATE EDITOR): blod cnts p a little and I cj stable stay on iron as on for nwo and seclf joãoweck Assessment & Plan (09/07/2020 1:28 PM STATE EDITOR): Iron stil low and takes mvi with [...] drugs Assessment & Plan (01/01/2025 10:10 AM STATE EDITOR): Chemistry Lab Results Component Value Date SODIUM [...] needed. Assessment & Plan (11/02/2021 10:31 AM STATE EDITOR): Creat sctable and due for 24 hr [...] kidneys. Assessment & Plan (01/06/2019 5:28 PM STATE EDITOR): Worsening some. CC down to 46 from [...] diet Assessment & Plan (01/10/2021 11:27 AM STATE EDITOR): Your cholesterol in the form of ldl [...] diet Assessment & Plan (09/15/2019 11:25 AM STATE EDITOR): ldl at 58 and great no chanes [...] 08/19/2018 Assessment & Plan (11/12/2022 3:05 PM STATE EDITOR): The patient was counseled on a heart-healthy, [...] care. Assessment & Plan (11/02/2021 10:31 AM STATE EDITOR): a1c at 5.8 and near nl Diabetes [...] months Assessment & Plan (01/10/2021 11:22 AM STATE EDITOR): Cr clear up to 50 from 35. [...] kidneys. Assessment & Plan (09/07/2020 1:27 PM STATE EDITOR): A`1c nl at 5.6 and will stopthe [...] care. Assessment & Plan (09/15/2019 11:24 AM STATE EDITOR): screeens for renal funcniton stabl eto better [...] dec Assessment & Plan (01/06/2019 5:26 PM STATE EDITOR): The patient was counseled on a heart-healthy, [...] hypertension. Assessment & Plan (01/01/2025 10:50 AM STATE EDITOR): BP Readings from Last 3 Encounters: 01/01/25 [...] hypertension. Assessment & Plan (12/27/2023 1:31 PM STATE EDITOR): -chronic, suboptimally controlled -currently takes Coreg daily [...] controlled. Assessment & Plan (01/10/2021 11:21 AM STATE EDITOR): bp good and a1c up to 6.1 [...] hypertension. Assessment & Plan (09/15/2019 11:23 AM STATE EDITOR): The bp good and th3 a1c neqr [...] bp. Assessment & Plan (01/06/2019 5:27 PM STATE EDITOR): Recommend DASH diet, heart-healthy lifestyle, exercise. Discussed [...] hypertension. Assessment & Plan (10/18/2017 10:30 AM STATE EDITOR): bp good and no chagesHypertension, Medical treament [...] care. Assessment & Plan (01/01/2025 10:03 AM STATE EDITOR): Chronic, stable, and at goal of A1c [...] pyr'ly Assessment & Plan (01/10/2021 11:24 AM STATE EDITOR): Urine protetin cme up to 192 and up. On meds to help and cotn as on for now and check Assessment & Plan (06/03/2020 3:42 PM CDT): Dropping back on honey to 2.5 Given renal and bp and k some high will check in futureif ka goes up any alexis need to reduce to stop the alldactone Assessment & Plan (09/15/2019 11:24 AM STATE EDITOR): lurine protein down to 4.7 and Very [...] care. Assessment & Plan (10/18/2017 10:31 AM STATE EDITOR): a1c at 6.2 and 6.5 diabetes. So [...] 01/21/2025 Assessment & Plan (01/01/2025 10:01 AM STATE EDITOR): Chronic problem, exacerbated at this time. Point of care urinalysis today: Repeat urine culture Initiate antibiotics at this time based on most recent culture data: Rx ciprofloxacin 500 mg twice a day for 5 days Body mass index (BMI) of 23. 0 to 23.9 in adult 12/27/2023 06/11/2024 Assessment & Plan (12/27/2023 1:39 PM STATE EDITOR): Wt Readings from Last 3 Encounters: 11/22/23 [...] hypertension. Assessment & Plan (11/02/2021 10:32 AM STATE EDITOR): Bp; stable anld keep meds sameHypertension, Medical [...] diet Assessment & Plan (01/10/2021 11:26 AM STATE EDITOR): Work to stoppoing wt gain Benign hypertensive kidney d isease with chronic kidney disease stage I through stage IV, or unspecified(403.10) 06/03/2020 03/06/2022 Assessment & Plan (11/02/2021 10:33 AM STATE EDITOR): Renal screen stable nad bp good and [...] bp. Assessment & Plan (01/10/2021 11:23 AM STATE EDITOR): bp good and renal better no chages in meds Assessment & Plan (09/07/2020 1:27 PM STATE EDITOR): bp good and will gfr lower try [...] 09/15/201907/04 Assessment & Plan (09/15/2019 11:28 AM STATE EDITOR): Given age and last nl without need [...] 021 Assessment & Plan (09/07/2020 1:28 PM STATE EDITOR): Work to keepst able Assessment & Plan [...] 11/29/201708/05 Assessment & Plan (12/04/2017 4:55 PM STATE EDITOR): If bleeds then apply direct p[ressure and will stop. bandaid after dial soap nguyen twice a day. Antibiotic oinment on and bakndaid to prtect tentus 7 yrs ago and up to date. No repeat needed for this low risk wound. Hyperlipidemia 09/22/2016 08/19/2018 Overview (02/09/2017): HYPERLIPIDEMIA NEC/NOS Assessment & Plan (10/18/2017 10:31 AM STATE EDITOR): ldl at 59 and great and no [...] drink = 0.6 oz pur e alcohol) [facility] citizenmadeities Answer Date Recorded In the past 12 months has [employer], [employer], or water [employer] threatened to shut off services in your [...] How often do you attend chur or mormonism services? Never 05/07/2025 Do you belong to any clubs o r organizations such as protestant groups, unions, fraternal or athletic groups, or [...] place to sleep or slept in a custodial (including now)? No 11/23/2023 Housing Stability Vital Sign Answer Ethan e Recorded In the last 12 months, was t here a time when you were not able to pay the mortgage or rent on time? No 05/07/2025 In the past 12 months, how m any times have you moved where you were living? 0 05/07/2025 At any time in the past 12 m [facility], were you homeless or living in a custodial (including now)? No 05/07/2025 Personal Safety Answer [...] on file Legal Sex Female 11:52 PM STATE EDITOR Gender Identity Not on file Sexual Orientation [...] BLOOD ORDERABLES Margaret l Result RASHMI FOX ([place]) [address] [place] [address] * (ABNORMAL) Troponin T high-sensitivity 6-hour (05/09/2025 3:53 AM CDT) Trop T hs 42(H) <=14 ng/L Comment: Interpretive Data For further hscTnT resources including the diagnostic algorithm and an aid in interpretation, copy and paste this link: https://nrl.[employer].org/show/hsTrop Current Interpretive Data last revised 2020. Trop T hs delta See Comment ng/L CE STEVEN FOX ([place]) Comment:Inappropriate collec tion time to report a delta. Trop T hs pct delta See Comment % RASHMI FOX ([place]) Comment:Inappropriate collec tion time to report a delta. Trop T hs interp See Comment C ELA FOX ([place]) Comment:Inappropriate collec tion time to report a delta. Blood 05/09/2025 3:53 AM CDT 05/09/2025 4:34 AM CDT us Antwan Kan MD LAB BLOOD ORDERABLES Final Resu lt Performing Organization Address [facility]/ZIP Co de Phone Number RASHMI FOX ([place]) [address] [place] [address] * (ABNORMAL) Troponin T high-sensitivity 4-hour (05/09/2025 3:53 AM CDT) Trop T hs 41(H) <=14 ng/L Comment: Interpretive Data For further hscTnT resources including the diagnostic algorithm and an aid in interpretation, copy and paste this link: https://nrl.[employer].org/show/hsTrop Current Interpretive Data last revised 2020. Trop T hs delta See Comment ng/L CE STEVEN FOX ([place]) Comment:Inappropriate collec tion time to report a delta. Trop T hs pct delta See Comment % RASHMI FOX ([place]) Comment:Inappropriate collec tion time to report a delta. Trop T hs interp See Comment C ELA RUDDY ([place]) Comment:Inappropriate collec tion time to report a delta. Blood 05/09/2025 3:53 AM CDT 05/09/2025 4:34 AM CDT Antwan Kan MD LAB BLOOD ORDERABLES Final Resu lt RASHMI FOX ([place]) 1 [facility] [place] [address] * (ABNORMAL) eGFR (05/09/2025 3:53 AM CDT) [...] ORDERABLES Final Resu lt Performing Organization Address City/[facility]/ZIP Co de Phone Number RASHMI FOX ([place]) 1 [facility] [place] [address] * Differential, auto (05/09/2025 3:53 AM CDT) [...] Final Resu lt [facility] ([place]) 1 [facility] [place] [address] * (ABNORMAL) CBC with auto differential (05/09/2025 [...] Final Resu lt [facility] ([place]) 1 [facility] [place] [address] * (ABNORMAL) Comprehensive metabolic panel (05/09/2025 3:53 [...] ORDERABLES Final Resu lt Performing Organization Address City/[facility]/ZIP Co de Phone Number RASHMI FOX ([place]) 1 [facility] [place] [address] * (ABNORMAL) Troponin T high-sensitivity 2-hour (05/08/2025 10:28 PM CDT) Trop T hs 45(H) <=14 ng/L Comment: Interpretive Data For further hscTnT resources including the diagnostic algorithm and an aid in interpretation, copy and paste this link: https://nrl.testcatalog.org/show/hsTrop Current Interpretive Data last revised 2020. Trop T hs delta -4 ng/L [facility] ER [facility] ([place]) Trop T hs interp Insignificant [facility] ([place]) Blood 05/08/2025 10:2 8 PM CDT 05/08/2025 10:30 PM CDT us Antwan Kan MD LAB BLOOD ORDERABLES Final Resu lt Performing Organization Address [facility] Co de Phone Number RASHMI FOX ([place]) 1 [facility] [place] [address] * ECG 12 lead (05/08/2025 8:57 PM CDT) 05/08/2025 8:57 PM CDT Narrative [facility] - 05/09/2025 8:14 PM CDT Vent Rate: 57 bpm RR Interval: 1036 msec IN Interval: 149 msec QRS Duration: 69 msec QT Interval: 372 msec QTC Interval: 367 msec P-R-T [place]: 40 - 8 - 59 degrees IMPRESSION: SINUS BRADYCARDIA BORDERLINE ECG NO CHANGE FROM PREVIOUS TRACING NOTED Electronically Signed By: Jesus Vasquez MD Antwan Kan MD ECG ORDERABLES Final Result Performing Organization Address [facility]/ZIP Co de Phone Number [facility] [place] [facility] * (ABNORMAL) Troponin T high-sensitivity [...] BLOOD ORDERABLES Final Resu lt RASHMI FOX ([place]) 1 [facility] [place] [address] * (ABNORMAL) eGFR (05/08/2025 6:17 [...] Final Resu lt RASHMI FOX ([place]) 1 [facility] [place] [address] * Differential, auto (05/08/2025 6:17 AM CDT) [...] ORDERABLES Final Resu lt Performing Organization Address City/[facility]/ZIP Co de Phone Number [facility] ([place]) 1 [facility] [place] [address] * (ABNORMAL) CBC with auto differential (05/08/2025 [...] Final Resu lt [facility] ([place]) 1 [facility] [place] [address] * (ABNORMAL) Comprehensive metabolic panel (05/08/2025 6:17 [...] ORDERABLES Final Resu lt Performing Organization Address City/[facility]/ZIP Co de Phone Number RASHMI FOX ([place]) 1 [facility] [employer] [place] [address] * (ABNORMAL) Urinalysis reflex to microscopic (05/07/2025 [...] tendency for uric acid stone formation. Source: [facility] [place] Current Interpretive Data was last revised on [...] ORDERABLES Final Resu lt Performing Organization Address City/[facility]/ZIP Co de Phone Number RASHMI FOX ([place]) 1 [facility] [place] [address] * (ABNORMAL) Urinalysis, microscopic only (05/07/2025 6:04 PM CDT) WBC, ur 6-10(A) 0 - 5 /HPF RBC, ur 0-2 0 - 2 /HPF [facility] ([place]) Epithelial cells, squamous, ur 11-20(A) 0 - 5 /HPF [facility] ([place]) Bacteria, ur 1+(A) [facility] ([place]) Mucous, ur Present(A) [facility] ([place]) Urine 05/07/2025 6:04 PM CDT 05/07/2025 6:09 PM CDT us Antwan Kan MD LAB URINE ORDERABLES Final Resu lt RASHMI [facility] ([place]) 1 [facility] [place] [address] * MRI Lumbar Spine WO Contrast (05/07/2025 [...] dated 05/06/2025 and 11/04/2021. FINDINGS: SEGMENTATION: 5 pss-lyi-ulvxajq lumbar type vertebral bodies. ALIGNMENT: Mild anterolisthesis [...] facet arthropathy with mild neural foraminal narrowing, ztqh-dqaedea-pbzu-right. L2-L3: No significant disc bulge or spinal canal stenosis. Thickened ligamentum flavum and facet arthropathy with fvsd-ne-xfgncdks left and mild right neural foraminal narrowing. [...] and series 11, image 15). IMPRESSION: 1. Mlol-tt-aicpazou lumbar disc degeneration with thickened ligamentum flavum [...] Jonas Han D.O. AP: AP Report ID: [id number] Reading Location: [id number] Procedure Note Jonas Han, DO - 05/07/2025 [...] dated 05/06/2025 and 11/04/2021. FINDINGS: SEGMENTATION: 5 eiw-sgn-izqwvfw lumbar type vertebral bodies. ALIGNMENT: Mild anterolisthesis [...] and facet arthropathy with mild neural foraminalnarrowing, aavu-rxproqv-zanz-right. L2-L3: No significant disc bulge or spinal canal stenosis. Thickened ligamentum flavum and facet arthropathy with qqfv-bu-xmxuokyy left andmild right neural foraminal narrowing. L3-L4: [...] and series 11, image 15). IMPRESSION: 1. Vxfa-la-hhbxgswh lumbar disc degeneration with thickened ligamentum flavum [...] Han D.O. AP: JOSE ENRIQUE Report ID: [id number] Reading Location: [place] [address] [facility] DIRECT[facility] IMG MRI PROCEDURES Final Re sult * [...] MD LAB BLOOD ORDERABLES Final Resu lt [facility] ([place]) 1 [facility] [place], [place] [id number] * Differential, auto (05/07/2025 3:00 AM CDT) Neutrophil abs 3.05 1.50 - 6.50 K/cumm Imm gran abs 0.05 0.00 - 0.10 K/cumm [facility] ([place]) Lymphocyte abs 1.69 0.80 - 3.30 K/cumm [...] Final Resu lt RASHMI FOX ([place]) 1 [facility] [place] [address] * (ABNORMAL) CBC with auto differential (05/07/2025 [...] ORDERABLES Final Resu lt Performing Organization Address City/[facility]/ZIP Co de Phone Number RASHMI FOX ([place]) 1 [facility] [place] [address] * TSH (05/07/2025 3:00 AM CDT) Thyroid Stimulating Hormone 3.06 0.30 - 4.20 mcIUnit/mL Blood 05/07/2025 3:00 AM CDT 05/07/2025 3:39 AM CDT Antwan Kan MD LAB BLOOD ORDERABLES Final Resu lt RASHMI FOX ([place]) 1 [facility] [place] [address] * (ABNORMAL) Comprehensive metabolic panel (05/07/2025 3:00 [...] BLOOD ORDERABLES Final Resu lt RASHMI FOX ([place]) 1 [facility] [place] [address] * POCT glucose (05/06/2025 5:10 PM CDT) Glucose, POC 89 70 - 199 mg/dL Blood 05/06/2025 5:10 PM CDT 05/06/2025 5:10 PM CDT us Angelica Eagle MD LAB POCT ORDERABLES - DEV ICE Final Result Performing Organization Address [facility] Co de Phone Number RASHMI FOX ([place]) 1 [facility] [place] [address] * XR Spine Lumbar 4 or More [...] states that is normal. Pt has equal management professionals strength. TECHNIQUE: 6 radiographic view(s) of the [...] by Cameron Lyons M.D., JR: Report ID: [id number] Reading Location: [id number] Procedure Note Cameron Lyons MD - 05/06/2025 [...] states that is normal. Pt has equal management professionals strength. TECHNIQUE: 6 radiographic view(s) of the [...] by Cameron Lyons M.D. JR: Report ID: [id number] Reading Location: [id number] Joie MONSIVAIS XR PROCEDURES Final Result * [...] states that is normal. Pt has equal management professionals strength. TECHNIQUE: AP pelvis, 2 views of [...] by Cameron Lyons M.D. JR: Report ID: [id number] Reading Location: [id number] Procedure Note Cameron Lyons MD - 05/06/2025 [...] states that is normal. Pt has equal management professionals strength. TECHNIQUE: AP pelvis, 2 views of [...] signed by Cameron Simental.D. JR: Report ID: [id number] Reading Location: [id number] Angelica Eagle MD IMG XR PROCEDURES Final [...] states that is normal. Pt has equal management professionals strength. TECHNIQUE: 2 radiographic view(s) of the [...] by Cameron Lyons M.D. JR: Report ID: [id number] Reading Location: [id number] Procedure Note Cameron Lyons MD - 05/06/2025 [...] states that is normal. Pt has equal management professionals strength. TECHNIQUE: 2 radiographic view(s) of the [...] by Cameron Lyons M.D. JR: Report ID: [id number] Reading Location: [id number] Angelica Eagle MD IMG XR PROCEDURES Final [...] tendency for uric acid stone formation. Source: [place] [employer] Current Interpretive Data was last revised on [...] Reflex to microscopic UA will be performed. [facility] ([place] Urine 05/06/2025 1:42 PM CDT 05/06/2025 1:53 PM CDT us Angelica Eagle MD LAB MICROBIOLOGY - GENERA L ORDERABLES Final Result Performing Organization Address [facility] Co de Phone Number RASHMI [facility] ([place]) 1 [facility] [place] [address] * (ABNORMAL) Urinalysis, microscopic only (05/06/2025 1:42 PM CDT) WBC, ur 0-5 0 - 5 /HPF RBC, ur 0-2 0 - 2 /HPF [facility] ([place]) Epithelial cells, squamous, ur 6-10(A) 0 - 5 /HPF CERNER [facility] ([place]) Bacteria, ur Trace(A) [facility] ([place]) Mucous, ur Present(A) CERNER A ([place]) Culture Reflex Comment Reflex conditions for urine culture (WBC >10) not met. SEJALNER [facility] ([place]) Urine 05/06/2025 1:42 PM CDT 05/06/2025 1:53 PM CDT us Angelica Eagle MD LAB URINE ORDERABLES Margaret l Result Performing Organization Address [facility] Co de Phone Number RASHMI [facility] ([place]) 1 [facility] [place] [address] * XR Chest 1 Vw Portable (05/06/2025 [...] states that is normal. Pt has equal management professionals strength. TECHNIQUE: Single radiographic view(s) of the chest. COMPARISON: Chest radiograph 04/10/2025 FINDINGS: The heart appears normal in size. There is blunting of the left costophrenic angle which could reflect trace pleural effusion. IMPRESSION: Trace left pleural effusion. THIS IS AN ELECTRONICALLY VERIFIED FINAL REPORT 05/06/2025 12:55 PM - Electronically signed by Cameron Lyons M.D., JR: Report ID: [id number] Reading Location: [id number] Procedure Note Cameron Lyons MD - 05/06/2025 [...] and sees a neurologist. Pt took tylenol [id number]. Speech slightly slurred, but states that is [...] by Cameron Lyons M.D. JR: Report ID: [id number] Reading Location: [id number] Joie HU IMG XR PROCEDURES Final Result * ECG 12 lead (05/06/2025 12:04 PM CDT) 05/06/2025 12:0 4 PM CDT Narrative [facility] - 05/06/2025 1:14 PM CDT Vent Rate: 59 bpm RR Interval: 1011 msec IN Interval: 134 msec QRS Duration: 82 msec QT Interval: 360 msec QTC Interval: 359 msec P-R-T [place]: 40 - 6 - 53 degrees IMPRESSION: SINUS BRADYCARDIA WITH SINUS ARRHYTHMIA BORDERLINE ECG NO CHANGE FROM PREVIOUS TRACING NOTED Electronically Signed By: Jesus Vasquez MD Angelica Eagle MD ECG ORDERABLES Final Res ult Performing Organization Address City/[facility]/ZIP Co de Phone Number [facility] [place] [facility] * (ABNORMAL) eGFR (05/06/2025 12:04 PM CDT) [...] Margaret l Result [facility] ([place]) 1 [facility] [place] [address] * Differential, auto (05/06/2025 12:04 PM CDT) [...] Neutrophil pct 69.7 % [facility] R [facility] ([place]) Comment: Interpretive Data Percent cell count reference ranges are not reported, since discordance with absolute values may lead to misinterpretation of CBC data. Current Interpretive Data was last revised on 2018. Imm gran pct 0.7 % [facility] ([place]) Comment: Interpretive Data Percent cell count reference [...] ORDERABLES Margaret neumann Result Performing Organization Address City/[facility]/ZIP Co de Phone Number RASHMI [facility] ([place]) 1 [facility] [place] [address] * (ABNORMAL) CBC with auto differential (05/06/2025 [...] ORDERABLES Margaret neumann Result Performing Organization Address City/[facility]/ZIP Co de Phone Number RASHMI FOX ([place]) 1 [facility] [place] [address] * (ABNORMAL) Comprehensive metabolic panel (05/06/2025 12:04 [...] BLOOD ORDERABLES Margaret l Result RASHMI FOX ([place]) 1 [facility] [employer] [place] [address] * (ABNORMAL) eGFR (04/14/2025 10:35 AM CDT) [...] Margaret l Result RASHMI FOX ([place]) 1 [facility] [place] [address] * (ABNORMAL) Basic metabolic panel (04/14/2025 10:35 AM CDT) Sodium 141 135 - 145 mmol/L Potassium, pl 4.7 3.3 - 4.9 mmol/L [facility] ([place]) Chloride 103 97 - 110 mmol/L [facility] ([place]) CO2 26 22 - 32 mmol/L [facility] ([place]) Anion gap 12 2 - 15 mmol/L [facility] ([place]) BUN 31(H) 6 - 25 mg/dL [facility] ([place]) Creatinine 1.04 0.60 - 1.10 mg/dL [facility] ([place]) Glucose 123 70 - 199 mg/dL [facility] ([place]) Comment: Interpretive Data Fasting glucose >/= [...] 2022. Calcium 9.4 8.5 - 10.3 mg/dL [facility] ([place]) Blood 04/14/2025 10:3 5 AM CDT 04/14/2025 10:38 AM CDT Harmony Wynne MD LAB BLOOD ORDERABLES Margaret l Result [facility] ([place]) [address] [facility] [employer] [place] [address] * (ABNORMAL) Potassium (04/11/2025 11:38 AM CDT) [facility] Potassium, pl 5.1(H) 3.3 - 4.9 mmol/L Blood 04/11/2025 11:3 8 AM CDT 04/11/2025 11:43 AM CDT Harmony Wynne MD LAB BLOOD ORDERABLES Margaret l Result [facility] ([place] [address] [facility] [place] [address] * (ABNORMAL) eGFR (04/11/2025 2:37 AM CDT) [...] MD LAB BLOOD ORDERABLES Margaret neumann Result [facility] ([place]) [address] [facility] Department [place] [address] * Differential, auto (04/11/2025 2:37 AM CDT) [...] BLOOD ORDERABLES Margaret neumann Result [facility] ([place]) [address] [facility] Department of Laboratories [place], [place] [id number] * (ABNORMAL) CBC with auto differential (04/11/2025 [...] Margaret neumann Result [facility] ([place]) [address] [facility] [place] [address] * (ABNORMAL) Comprehensive metabolic panel (04/11/2025 2:37 [...] BLOOD ORDERABLES Margaret l Result [facility] ([place]) [address] [facility] Department [place] [address] * TRANSTHORACIC ECHO (TTE) COMPLETE W DOPPLER/CF WO CONTRAST (04/10/2025 3:52 PM CDT) Estimated EF 70 % CONS SCIMAGE Anatomical Region Laterality Modality Ultrasound 04/10/2025 3:42 PM CDT Narrative 04/10/2025 4:53 PM CDT [address] [place] [address] Echocardiogram Report Patient Name: NICOLLE HERNÁNDEZ : 1935 Study Date: 04/10/2025 3:42:13 PM Gender: F Tech: Location: [id number] Ref Provider: MELVIN HUNTER Height(Cm): BSA: Weight(Kg): [...] Procedure Note Melvin Hunter MD - 04/10/[address] [place] [address] Echocardiogram Report Patient Name: NICOLLE HERNÁNDEZ : 1935 Study Date: 04/10/2025 3:42:13 PM Gender: F Tech: Location: [id number] Ref Provider: MELVIN HUNTER Height(Cm): BSA: Weight(Kg): [...] CDT) 04/10/2025 10:5 3 AM CDT Narrative [facility] - 04/10/2025 11:56 AM CDT Vent Rate: 60 bpm RR Interval: 996 msec IN Interval: 144 msec QRS Duration: 71 msec QT Interval: 370 msec QTC Interval: 370 msec P-R-T [place]: 39 - -4 - 66 degrees IMPRESSION: SINUS RHYTHM NORMAL ECG Compared to prior EKG, heart rate has increased Electronically Signed By: Jesus Vasquez MD Silvina Elena MD ECG ORDERABLES Final Res ult Performing Organization Address City/[facility]/ZIP Co de Phone Number [facility] * POCT glucose (04/10/2025 10:03 AM CDT) Glucose, POC 157 70 - 199 mg/dL Blood 04/10/2025 10:0 3 AM CDT 04/10/2025 10:03 AM CDT Silvina Elena MD LAB POCT ORDERABLES - DEV ICE Final Result Performing Organization Address City/[facility] Co de Phone Number [facility] ([place]) [address] [facility] Department of Laboratories [place] [id number] * (ABNORMAL) Urinalysis reflex to microscopic and culture Urine (04/10/2025 9:24 AM CDT) Color, ur Yellow Yellow Clarity, ur Turbid(A) Clear [facility] ([place]) Specific gravity, ur 1.016 1.003 - 1.030 [facility] ([place]) pH, urine 6.5 [facility] ([place]) Comment: Interpretive Data U rine pH is affected by diet, medications, systemic acid-base disturbances, and renal tubular function. pH may affect urinary stone formation. For example, urine pH below 6.0 may help reduce the tendency for calcium phosphate stones and pH greater than 6.0 may reduce the tendency for uric acid stone formation. Source: [facility] [employer] Current Interpretive Data was last revised on [...] L ORDERABLES Final Result Performing Organization Address [facility] Co de Phone Number [facility] ([place]) [address] [facility] [place] [address] * (ABNORMAL) Urinalysis, microscopic only (04/10/2025 9:24 [...] ORDERABLES Margaret l Result Performing Organization Address City/[facility]/ZIP Co de Phone Number [facility] ([place]) [address] [facility] [place] [address] * CT Head WO Contrast (04/10/2025 6:25 [...] Regis Reyes M.D. NS: NS Report ID: [id number] Reading Location: [id number] Procedure Note Regis Reyes MD - 04/10/2025 EXAM DESCRIPTION: CT HEAD WO CONTRAST REASON FOR STUDY: Headache, sudden, severe, High blood pressure headache Patient complains of head, neck and chest pain today. TECHNIQUE: Axial images acquired through the brain without intravenous contrast. Sagittal and coronal images reconstructed. Images stored onPRCS. Automated exposure control was used as a [...] Regis Reyes M.D. NS: NS Report ID: [id number] Reading Location: [place] [address] Cuco Luke MD IMG CT PROCEDURES Final [...] ORDERABLES Final Re sult Performing Organization Address [facility] Co de Phone Number [facility] ([place]) [address] [facility] Department [place] [address] * (ABNORMAL) Troponin T high-sensitivity 2-hour (04/10/2025 2:53 AM CDT) Trop T hs 32(H) <=14 ng/L Comment: Interpretive Data For further hscTnT resources including the diagnostic algorithm and an aid in interpretation, copy and paste this link: https://nrl.testcatalog.org/show/hsTrop Current Interpretive Data last revised 2020. Trop T hs delta 0 ng/L [facility] ([place]) Trop T hs interp Insignificant [facility] ([place]) Blood 04/10/2025 2:53 AM CDT 04/10/2025 3:59 AM CDT Cuco Luke MD LAB BLOOD ORDERABLES Final Re sult Performing Organization Address [facility] Co de Phone Number [facility] ([place]) [address] [facility] [place] [address] * XR Chest 1 Vw Portable (if [...] Tristan Ryan M.D. AR: CECILIA Report ID: [id number] Reading Location: [id number] Procedure Note Tristan Ryan MD - 04/10/2025 [...] Tristan Ryan M.D. AR: CECILIA Report ID: [id number] Reading Location: [place] [address] Cuco Luke MD IMG XR PROCEDURES Final [...] BLOOD ORDERABLES Final Re sult [facility] ([place]) [address] [facility] Department [place] [address] * eGFR (04/10/2025 12:44 AM CDT) Pathologist [...] LAB BLOOD ORDERABLES Final Re sult [facility] [place] [facility] Department [place] [address] * Differential, auto (04/10/2025 12:44 AM CDT) [...] Final Re sult [facility] ([place]) [address] [facility] [place] [address] * (ABNORMAL) CBC with auto differential (04/10/2025 [...] RDW SD 49.7(H) 35.7 - 48.1 fL [facility] ([place]) NRBC abs 0.00 0.00 - 0.01 K/cumm [facility] ([place] Blood Venous blood specimen / Unknown 04/10/2025 12:44 AM CDT 04/10/2025 12:59 AM CDT us Cuco Luke MD LAB BLOOD ORDERABLES Final Re sult [facility] ([place]) [address] [facility] Department [place] [address] * (ABNORMAL) Comprehensive metabolic panel (04/10/2025 12:44 AM CDT) Pathologist [facility] Sodium 138 135 - 145 mmol/L Potassium, pl 4.5 3.3 - 4.9 mmol/L [facility] ([place]) Chloride 101 97 - 110 mmol/L [facility] ([place] CO2 24 22 - 32 mmol/L [facility] ([place]) Anion gap 13 2 - 15 mmol/L [facility] ([place]) BUN 29(H) 6 - 25 mg/dL [facility] ([place]) Creatinine 0.91 0.60 - 1.10 [...] Final Re sult [facility] ([place]) [address] [facility] Department of Laboratories [place], [place] [id number] * ECG 12 lead (04/10/2025 12:32 AM CDT) 04/10/2025 12:3 2 AM CDT Narrative [facility] - 04/10/2025 8:35 AM CDT Vent Rate: 41 bpm RR Interval: 1434 msec IN Interval: 144 msec QRS Duration: 72 msec QT Interval: 407 msec QTC Interval: 345 msec P-R-T [place]: 41 - -4 - 52 degrees IMPRESSION: SINUS BRADYCARDIA WITH SINUS ARRHYTHMIA POSSIBLE LEFT ATRIAL ENLARGEMENT [-0.1mV P WAVE IN V1/V2] BORDERLINE ECG NO CHANGE FROM PREVIOUS TRACING NOTED Electronically Signed By: Jesus Vasquez MD us Cuco Luke MD ECG ORDERABLES Final Result [facility] * (ABNORMAL) Hemoglobin A1c (01/21/2025 3:11 PM CDT) Hgb A1C 6.2(H) 4.0 - 5.6 % Estimated Average Glucose 131 mg/dL [facility] ([place]) Comment: The ADA recommends reporting an estimated Average Glucose (eAG) with all Hemoglobin A1c results using the equation derived from a study of 507 normal and diabetic adults. Minority populations were underrepresented and children were not included. (Diabetes Care 31:0271-7040, 2008). The eAG is not equivalent to a fasting glucose. Blood 01/21/2025 3:11 PM CDT 01/21/2025 3:15 PM CDT Narrative [facility] ([place]) - 01/21/2025 4:11 PM CDT FASTING 1-2 WEEKS BEFORE JANUARY 2025 APPT Fede HU LAB BLOOD ORDERABLES Fi nal Result [facility] ([place]) [address] [facility] Department [place] [address] * Lipid panel (01/21/2025 3:11 PM CDT) [...] Fi nal Result [facility] ([place]) [address] [facility] [place] [address] * (ABNORMAL) Albumin Creatinine Ratio, Urine (06/11/2024 3:25 PM CDT) Albumin Ur 577.8 mg/L Comment: Interpretive Data No reference range established. Current interpretive data was last revised 2019. Testing performed by: [address] [place] [address] Creatinine Ur 117.5 mg/dL [facility] ([place]) Comment: Interpretive Data No reference range established. Current interpretive data was last revised 2019. Testing performed by: [address], [place]., [address] Albumin Creatinine Ratio, Ur 492(H) 1 - 29 mg/g [facility] ([place]) Comment:Testing performed by : [facility], [address] [place] [address]., [address] Urine 06/11/2024 3:25 PM CDT 06/12/2024 9:00 AM CDT us Fede HU LAB URINE ORDERABLES Fi nal Result [facility] ([place]) [address] [facility] [place] [address] * Diabetic Eye Exam (06/25/2023) us Generic External Data Provider HEALTH MAINTENANC E Final Result * FIT occult blood, fecal (09/02/2020 9:16 AM CDT) Pathologist [facility] [place] FIT occult blood, fecal Negative Negative [facility] ([place]) Comment: Negative result. This test will not detect upper gastrointestinal bleeding; the HemoQuant test (9220)should be ordered if clinically indicated. Test Performed by: [place] [address] Chrome Polisher: Jake Mcgarry M.D. Ph.D.; CLIA# [id number] Stool 09/02/2020 9:16 AM CDT 09/02/2020 1:30 PM CDT us George Young MD LAB BODY FLUIDS AND STOOLS ORDERABLES Final Result [facility] ([place]) 1 [facility] [place] [address] * Screening Mammogram Bilateral W Mane (07/27/2020 [...] EXAM (01/11/2019) Diabetic Foot Exam Normal Result [facility] Provider HEALTH MAINTENANCE Final Result * COLONOSCOPY (06/25/2007) Pathologist [facility] hospital Colonoscopy Abnormal Comment:Diverticulosis and h emorrhoidal disease [facility] Provider HEALTH MAINTENANCE Final Result * DEXA SCAN (03/09/2005) DEXA Scan Normal [facility] Provider HEALTH MAINTENANCE Final Result from Last 3 Months or Most Recently Relevant to Health Maintenance Insurance MEDICARE COMMERCIAL [facility] MEDICARE [facility] Advance Directives For more information, please contact: [phone] * Full Code (Latest Code Status on [...] First Altern ate Health Care Agent [email or web address] Marine Geologist Relationship Specialty Start Date End Date Fede Mills PA [address] [facility] [address] [place] [address] PCP - General Internal Medicine 07/04/22 Lynda Silvestre MD [address] [place] [address] Referring Physician Ophthalmology 11/13/22 Victor Manuel Real MD [address] [facility] [address] [address] [place] [address] Consulting Physician Neurology 01/18/24 Nazario Osman DPM [address] [place] [address] Consulting Physician Orthotics 01/18/24 Concha Prakash, RN [address] [place] [address] Photo Booth Operator 05/06/25
--- OUTSIDE RECORDS SUMMARY | 2025-05-13 17:14 | XMS_ITS | Clinical Summary ---
Author Organization [facility] Address [address] [place] [id number] Care Team Providers Care Manager Federal Name Role Phone Fede Mills Primary Care Provider Lynda Silvestre MD Unavailable [phone] Victor Manuel Real MD Unavailable [phone] Nazario Osman DPM Unavailable [phone] Concha Prakash RN Unavailable [phone] Allergies Active Allergy Reactions Criticality Noted Date [...] 11/22/2023 Assessment & Plan (12/27/2023 1:32 PM LEAD RECOVERER): -new diagnosis -reported in bilateral lower extremities [...] 07/04/2022 Assessment & Plan (12/27/2023 1:35 PM LEAD RECOVERER): -chronic -previously taking 25 mcg of levothyroxine -discontinued during hospitalization from 11/22/2023-11/25/2023 [employer] (current) use of aspirin 01/10/2022 Generalized edema 11/02/2021 Assessment & Plan (11/02/2021 10:33 AM LEAD RECOVERER): Check tsh Cbc bnp; for eval Try restrict salt Acute bilateral low back pain without sciatica 1 Assessment & Plan (11/02/2021 10:39 AM LEAD RECOVERER): Trial pt to see if can help [...] 06/03/2020 Assessment & Plan (11/02/2021 10:34 AM LEAD RECOVERER): Recheck to confirm not worseining prior xstool hem neg Assessment & Plan (06/16/2021 10:38 AM CDT): Iron up to iron sat up to 16 and hgb to 11.5 and geteting to nl and cont iron and check Assessment & Plan (01/10/2021 11:25 AM LEAD RECOVERER): blod cnts p a little and I cj stable stay on iron as on for nwo and seclf chweck Assessment & Plan (09/07/2020 1:28 PM LEAD RECOVERER): Iron stil low and takes mvi with [...] drugs Assessment & Plan (01/01/2025 10:10 AM LEAD RECOVERER): Chemistry Lab Results Component Value Date SODIUM [...] needed. Assessment & Plan (11/02/2021 10:31 AM LEAD RECOVERER): Creat sctable and due for 24 hr [...] kidneys. Assessment & Plan (01/06/2019 5:28 PM LEAD RECOVERER): Worsening some. CC down to 46 from [...] diet Assessment & Plan (01/10/2021 11:27 AM LEAD RECOVERER): Your cholesterol in the form of ldl [...] diet Assessment & Plan (09/15/2019 11:25 AM LEAD RECOVERER): ldl at 58 and great no chanes [...] 08/19/2018 Assessment & Plan (11/12/2022 3:05 PM LEAD RECOVERER): The patient was counseled on a heart-healthy, [...] care. Assessment & Plan (11/02/2021 10:31 AM LEAD RECOVERER): a1c at 5.8 and near nl Diabetes [...] months Assessment & Plan (01/10/2021 11:22 AM LEAD RECOVERER): Cr clear up to 50 from 35. [...] kidneys. Assessment & Plan (09/07/2020 1:27 PM LEAD RECOVERER): A`1c nl at 5.6 and will stopthe [...] care. Assessment & Plan (09/15/2019 11:24 AM LEAD RECOVERER): screeens for renal funcniton stabl eto better [...] dec Assessment & Plan (01/06/2019 5:26 PM LEAD RECOVERER): The patient was counseled on a heart-healthy, [...] hypertension. Assessment & Plan (01/01/2025 10:50 AM LEAD RECOVERER): BP Readings from Last 3 Encounters: 01/01/25 [...] hypertension. Assessment & Plan (12/27/2023 1:31 PM LEAD RECOVERER): -chronic, suboptimally controlled -currently takes Coreg daily [...] bp touch high and will recheck at [facility] in. And bring in [...] controlled. Assessment & Plan (01/10/2021 11:21 AM LEAD RECOVERER): bp good and a1c up to 6.1 [...] hypertension. Assessment & Plan (09/15/2019 11:23 AM LEAD RECOVERER): The bp good and th3 a1c neqr [...] bp. Assessment & Plan (01/06/2019 5:27 PM LEAD RECOVERER): Recommend DASH diet, heart-healthy lifestyle, exercise. Discussed [...] hypertension. Assessment & Plan (10/18/2017 10:30 AM LEAD RECOVERER): bp good and no chagesHypertension, Medical treament [...] care. Assessment & Plan (01/01/2025 10:03 AM LEAD RECOVERER): Chronic, stable, and at goal of A1c [...] diagnosis of diabetes in children. According to [place] [employer] (ADA) guidelines, hemoglobin A1c <7.0% [...] diagnosis of diabetes in children. According to [place] [employer] (ADA) guidelines, hemoglobin A1c <7.0% [...] pyr'ly Assessment & Plan (01/10/2021 11:24 AM LEAD RECOVERER): Urine protetin cme up to 192 and up. On meds to help and cotn as on for now and check Assessment & Plan (06/03/2020 3:42 PM CDT): Dropping back on honey to 2.5 Given renal and bp and k some high will check in futureif ka goes up any alexis need to reduce to stop the alldactone Assessment & Plan (09/15/2019 11:24 AM LEAD RECOVERER): lurine protein down to 4.7 and Very [...] care. Assessment & Plan (10/18/2017 10:31 AM LEAD RECOVERER): a1c at 6.2 and 6.5 diabetes. So [...] 01/21/2025 Assessment & Plan (01/01/2025 10:01 AM LEAD RECOVERER): Chronic problem, exacerbated at this time. Point of care urinalysis today: Repeat urine culture Initiate antibiotics at this time based on most recent culture data: Rx ciprofloxacin 500 mg twice a day for 5 days Body mass index (BMI) of 23. 0 to 23.9 in adult 12/27/2023 06/11/2024 Assessment & Plan (12/27/2023 1:39 PM LEAD RECOVERER): Wt Readings from Last 3 Encounters: 11/22/23 [...] hypertension. 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 Assessment & Plan (01/10/2021 11:23 AM LEAD RECOVERER): bp good and renal better no chages in meds Assessment & Plan (09/07/2020 1:27 PM LEAD RECOVERER): bp good and will gfr lower try [...] 09/15/201907/04 Assessment & Plan (09/15/2019 11:28 AM LEAD RECOVERER): Given age and last nl without need [...] 021 Assessment & Plan (09/07/2020 1:28 PM LEAD RECOVERER): Work to keepst able Assessment & Plan [...] 11/29/201708/05 Assessment & Plan (12/04/2017 4:55 PM LEAD RECOVERER): If bleeds then apply direct p[ressure and will stop. bandaid after dial soap nguyen twice a day. Antibiotic oinment on and bakndaid to prtect tentus 7 yrs ago and up to date. No repeat needed for this low risk wound. Hyperlipidemia 09/22/2016 08/19/2018 Overview (02/09/2017): HYPERLIPIDEMIA NEC/NOS Assessment & Plan (10/18/2017 10:31 AM LEAD RECOVERER): ldl at 59 and great and no [...] Type Department Care Team Description 05/12/2025 Telephone [facility] at [address] [place] [address] Omar Briceño NP 05/09/2025 2:36 PM CDT - 05/09/2025 11:59 PM CDT Hospital Encounter [facility] Discharge Disposition: Discharge to home or self care 05/06/2025 12:02 PM CDT - 05/09/2025 2:59 PM CDT Hospital Encounter [facility] Acute Medicine [address] [place] [address] Angelica Eagle MD Kheirkhahan, Nazanin, MD Weakness (Primary Dx) Discharge Disposition: Discharge to SNF 05/06/2025 Telephone [facility] Primary Care at [address] [place] [phone] Fede Mills PA Concerns for sudden weakness this morning 04/21/2025 3:00 PM CDT Office Visit [facility] Primary Care at [address] [place] [address] Fede Mills PA Hospital discharge follow-up (Primary Dx); Type 2 diabetes mellitus with microalbuminuria, without long-term current use of insulin (HCC); Hypertension, essential; Stage 3a chronic kidney disease (HCC); Acute chest pain; Hypertensive urgency; Intractable headache, unspecified chronicity pattern, unspecified headache type; Hyperkalemia; Acquired hypothyroidism; Wheelchair dependent; Parkinson's disease with dyskinesia, with fluctuations (HCC) 04/20/2025 Telephone [facility] Primary Care at [address] [address] Fede Mills PA Medical Question/Miscellaneo us 04/14/2025 10:25 AM CDT Lab [address] [address] Hyperkalemia 04/14/2025 Telephone [facility] Medical [facility] Primary Care at [address] [phone] Fede Mills PA Additional Services Or Orders 04/12/[address] [place] [phone] Lupe Oliveira, LAMINE Home Health 04/10/2025 3:25 AM CDT - 04/11/2025 2:10 PM CDT Hospital Encounter [facility] IMU [address] [place] [phone] Cuco Luke MD Holland, Kristy Lynn, MD [...] drink = 0.6 oz pur e alcohol) [facility] Utilities Answer Date Recorded In the past 12 months has e Ku6, gas, oil, or water Inductly threatened to shut off services in your [...] often do you attend chur ch or jewish services? Never 05/07/2025 Do you belong to any clubs o r organizations such as restorationist groups, unions, fraternal or athletic groups, or [...] place to sleep or slept in a intermediate (including now)? No 11/23/2023 Housing Stability Vital Sign Answer Ethan e Recorded In the last 12 months, was t here a time when you were not able to pay the mortgage or rent on time? No 05/07/2025 In the past 12 months, how m any times have you moved where you were living? 0 05/07/2025 At any time in the past 12 m [facility], were you homeless or living in a intermediate (including now)? No 05/07/2025 Personal Safety Answer [...] on file Legal Sex Female 11:52 PM LEAD RECOVERER Gender Identity Not on file Sexual Orientation [...] BLOOD ORDERABLES Margaret neumann Result RASHMI FOX (LEE) 1 [facility] [place] [address] * (ABNORMAL) Troponin T high-sensitivity 6-hour (05/09/2025 3:53 AM CDT) Trop T hs 42(H) <=14 ng/L Comment: Interpretive Data For further hscTnT resources including the diagnostic algorithm and an aid in interpretation, copy and paste this link: https://nrl.testcatalog.org/show/hsTrop Current Interpretive Data last revised 2020. Trop T hs delta See Comment ng/L CE STEVEN FOX (LEE) Comment:Inappropriate collec tion time to report a delta. Trop T hs pct delta See Comment % RASHMI FXO (LEE) Comment:Inappropriate collec tion time to report a delta. Trop T hs interp See Comment Will FOX (LEE) Comment:Inappropriate collec tion time to report a delta. Blood 05/09/2025 3:53 AM CDT 05/09/2025 4:34 AM CDT Antwan Kan MD LAB BLOOD ORDERABLES Final Resu lt Performing Organization Address [facility]/ZIP Co de Phone Number RASHMI FOX (LEE) [address] [facility] [place] [address] * (ABNORMAL) Troponin T high-sensitivity 4-hour (05/09/2025 3:53 AM CDT) Trop T hs 41(H) <=14 ng/L Comment: Interpretive Data For further hscTnT resources including the diagnostic algorithm and an aid in interpretation, copy and paste this link: https://nrl.testcatalog.org/show/hsTrop Current Interpretive Data last revised 2020. Trop T hs delta See Comment ng/L CE STEVEN FOX (LEE) Comment:Inappropriate collec tion time to report a delta. Trop T hs pct delta See Comment % RASHMI FOX (LEE) Comment:Inappropriate collec tion time to report a delta. Trop T hs interp See Comment Will FOX (LEE) Comment:Inappropriate collec tion time to report a delta. Blood 05/09/2025 3:53 AM CDT 05/09/2025 4:34 AM CDT us Antwan Kan MD LAB BLOOD ORDERABLES Final Resu lt Performing Organization Address [facility]/ZIP Co de Phone Number RASHMI FOX (JAME) 1 [facility] [place] [address] * (ABNORMAL) eGFR (05/09/2025 3:53 AM CDT) [...] BLOOD ORDERABLES Final Resu lt RASHMI [facility] (LEE) 1 [facility] Department [place] [address] * Differential, auto (05/09/2025 3:53 AM CDT) [...] BLOOD ORDERABLES Final Resu lt RASHMI FOX (LEE) 1 [facility] [place] [address] * (ABNORMAL) CBC with auto differential (05/09/2025 3:53 AM CDT) WBC 6.43 3.80 - 9.90 K/cumm Hgb 11.0(L) 11.9 - 15.5 g/dL RASHMI FOX (JAME) Hct 34.1(L) 35.6 - 45.5 % RASHMI FOX (JAME) Plt 243 150 - 400 K/cumm RASHMI FOX (LEE) MPV 9.9 9.1 - 12.3 fL CERNER [...] NRBC abs 0.02(H) 0.00 - 0.01 K/cumm [facility] (JAME) Blood 05/09/2025 3:53 AM CDT 05/09/2025 4:34 AM CDT us Antwan Kan MD LAB BLOOD ORDERABLES Final Resu lt RASHMI [facility] (JAME) 1 [facility] Department [place] [address] * (ABNORMAL) Comprehensive metabolic panel (05/09/2025 3:53 AM CDT) Sodium 137 135 - 145 mmol/L Potassium, pl 5.2(H) 3.3 - 4.9 mmol/L [facility] (JAME) Chloride 103 97 - 110 mmol/L [facility] (JAME) CO2 24 22 - 32 mmol/L [facility] (JAME) Anion gap 10 2 - 15 mmol/L [facility] (JAME) BUN 46(H) 6 - 25 mg/dL [facility] (JAME) Creatinine 1.10 0.60 - 1.10 [...] BLOOD ORDERABLES Final Resu lt RASHMI FOX (LEE) 1 [facility] [place] [address] * (ABNORMAL) Troponin T high-sensitivity 2-hour (05/08/2025 [...] ORDERABLES Final Resu lt Performing Organization Address City/[facility]/ZIP Co de Phone Number RASHMI FOX (JAME) 1 [facility] [place] [address] * ECG 12 lead (05/08/2025 8:57 PM CDT) 05/08/2025 8:57 PM CDT Narrative [facility] - 05/09/2025 8:14 PM CDT Vent Rate: 57 bpm RR Interval: 1036 msec HI Interval: 149 msec QRS Duration: 69 msec QT Interval: 372 msec QTC Interval: 367 msec P-R-T [place]: 40 - 8 - 59 degrees IMPRESSION: SINUS BRADYCARDIA BORDERLINE ECG NO CHANGE FROM PREVIOUS TRACING NOTED Electronically Signed By: Jesus Vasquez MD Antwan Kan MD ECG ORDERABLES Final Result Performing Organization Address [facility] de Phone Number [facility] * (ABNORMAL) Troponin T high-sensitivity series (baseline, 2hr, 4hr, 6hr) (05/08/2025 8:40 PM CDT) Trop T hs 49(H) <=14 ng/L Comment: Interpretive Data For further hscTnT resources including the diagnostic algorithm and an aid in interpretation, copy and paste this link: https://nrl.testcatalog.org/show/hsTrop Current Interpretive Data last revised 2020. Blood 05/08/2025 8:40 PM CDT 05/08/2025 8:58 PM CDT Antwan Kan MD LAB BLOOD ORDERABLES Final Resu lt Performing Organization Address City/[facility] Co de Phone Number RASHMI FOX (JAME) 1 [facility] [place] [address] * (ABNORMAL) eGFR (05/08/2025 6:17 AM CDT) [...] MD LAB BLOOD ORDERABLES Final Resu lt [facility] (LEE) 1 [facility] [place] [address] * Differential, auto (05/08/2025 6:17 [...] Neutrophil pct 58.8 % [facility] (LEE) Comment: Interpretive Data Percent cell count reference [...] Final Resu lt RASHMI FOX (JAME) 1 [facility] Department [place] [address] * (ABNORMAL) CBC with auto differential (05/08/2025 [...] NRBC abs 0.00 0.00 - 0.01 K/cumm [facility] (JAME) Blood 05/08/2025 6:17 AM CDT 05/08/2025 6:26 AM CDT us Antwan Kan MD LAB BLOOD ORDERABLES Final Resu lt [facility] (JAME) 1 [facility] Department [place] [address] * (ABNORMAL) Comprehensive metabolic panel (05/08/2025 6:17 AM CDT) Sodium 137 135 - 145 mmol/L Potassium, pl 4.7 3.3 - 4.9 mmol/L [facility] (JAME) Chloride 102 97 - 110 mmol/L [facility] (JAME) CO2 25 22 - 32 mmol/L [facility] (JAME) Anion gap 10 2 - 15 mmol/L [facility] (JAME) BUN 31(H) 6 - 25 mg/dL [facility] (JAME) Creatinine 0.99 0.60 - 1.10 mg/dL [facility] (JAME) Glucose 92 70 - 199 mg/dL [facility] (JAME) Comment: Interpretive Data Fasting glucose [...] ORDERABLES Final Resu lt RASHMI [facility] (JAME) 1 [facility] Department [place] [address] * (ABNORMAL) Urinalysis reflex to microscopic (05/07/2025 [...] tendency for uric acid stone formation. Source: [facility] Current Interpretive Data was last revised on [...] ORDERABLES Final Resu lt Performing Organization Address City/[facility]/ZIP Co de Phone Number RASHMI FOX (JAME) 1 [facility] [employer] [place] [address] * (ABNORMAL) Urinalysis, microscopic only (05/07/2025 6:04 [...] ORDERABLES Final Resu lt Performing Organization Address [facility]/ZIP Co de Phone Number RASHMI FOX (JAME) 1 [facility] Department [place] [address] * MRI Lumbar Spine WO Contrast (05/07/2025 [...] dated 05/06/2025 and 11/04/2021. FINDINGS: SEGMENTATION: 5 mtu-oux-qzisitk lumbar type vertebral bodies. ALIGNMENT: Mild anterolisthesis [...] facet arthropathy with mild neural foraminal narrowing, pmij-bglkxzj-llyw-right. L2-L3: No significant disc bulge or spinal canal stenosis. Thickened ligamentum flavum and facet arthropathy with vied-hn-ufbmplhx left and mild right neural foraminal narrowing. [...] and series 11, image 15). IMPRESSION: 1. Nish-qz-tibmjifk lumbar disc degeneration with thickened ligamentum flavum [...] Jonas Han D.O. AP: AP Report ID: [id number] Reading Location: [id number] Procedure Note Jonas Han, DO - 05/07/2025 [...] dated 05/06/2025 and 11/04/2021. FINDINGS: SEGMENTATION: 5 ucm-hgx-qxdlglx lumbar type vertebral bodies. ALIGNMENT: Mild anterolisthesis [...] and facet arthropathy with mild neural foraminalnarrowing, ssae-lfsiwuw-kxnb-right. L2-L3: No significant disc bulge or spinal canal stenosis. Thickened ligamentum flavum and facet arthropathy with kenf-uf-rtjyjnzd left andmild right neural foraminal narrowing. L3-L4: [...] and series 11, image 15). IMPRESSION: 1. Tapk-lg-cjnyrkvk lumbar disc degeneration with thickened ligamentum flavum [...] Jonas Han D.O. AP: AP Report ID: [id number] Reading Location: [place] [id number] Cameron Marie VISUAL DESIGNER IMG MRI PROCEDURES Final Re sult * [...] MD LAB BLOOD ORDERABLES Final Resu lt [facility] (LEE) 1 [facility] Department [place] [address] * Differential, auto (05/07/2025 3:00 AM CDT) Neutrophil abs 3.05 1.50 - 6.50 K/cumm Imm gran abs 0.05 0.00 - 0.10 K/cumm [facility] ([place]) Lymphocyte abs 1.69 0.80 - 3.30 K/cumm [facility] ([place]) Monocyte abs 0.52 0.20 - 0.80 K/cumm [facility] ([place]) Eosinophil abs 0.04 0.00 - 0.50 K/cumm [...] Final Resu lt [facility]ASHMI [facility] (JAME) 1 [facility] Department [place] [address] * (ABNORMAL) CBC with auto differential (05/07/2025 [...] NRBC abs 0.00 0.00 - 0.01 K/cumm [facility] (JAME) Blood 05/07/2025 3:00 AM CDT 05/07/2025 3:37 AM CDT Antwan Kan MD LAB BLOOD ORDERABLES Final Resu lt Performing Organization Address City/[facility]/ZIP Co de Phone Number RASHMI FOX (LEE) [address] [facility] [place] [address] * TSH (05/07/2025 3:00 AM CDT) Thyroid Stimulating Hormone 3.06 0.30 - 4.20 mcIUnit/mL Blood 05/07/2025 3:00 AM CDT 05/07/2025 3:39 AM CDT Antwan Kan MD LAB BLOOD ORDERABLES Final Resu lt Performing Organization Address [facility] Co de Phone Number RASHMI FOX (LEE) 1 [facility] [place] [address] * (ABNORMAL) Comprehensive metabolic panel (05/07/2025 3:00 AM CDT) Pathologist [facility] Sodium 138 135 - 145 mmol/L Potassium, pl 4.7 3.3 - 4.9 mmol/L [facility] (JAME) Chloride 104 97 - 110 mmol/L [facility] (JAME) CO2 24 22 - 32 mmol/L [facility] (JAME) Anion gap 11 2 - 15 mmol/L [facility] (JAME) BUN 31(H) 6 - 25 mg/dL [facility] (JAME) Creatinine 1.01 0.60 - 1.10 mg/dL [facility] (JAME) Glucose 102 70 - 199 mg/dL [facility] (JAME) Comment: Interpretive Data Fasting [...] BLOOD ORDERABLES Final Resu lt RASHMI FOX (LEE) 1 [facility] [employer] [place] [address] * POCT glucose (05/06/2025 5:10 PM CDT) Glucose, POC 89 70 - 199 mg/dL Blood 05/06/2025 5:10 PM CDT 05/06/2025 5:10 PM CDT us Angelica Eagle MD LAB POCT ORDERABLES - DEV ICE Final Result RASHMI FOX (LEE) 1 [facility] [place] [address] * XR Spine Lumbar 4 or More [...] states that is normal. Pt has equal director student union strength. TECHNIQUE: 6 radiographic view(s) of the [...] by Cameron Lyons M.D. JR: Report ID: [id number] Reading Location: [id number] Procedure Note Cameron Lyons MD - 05/06/2025 [...] states that is normal. Pt has equal director student union strength. TECHNIQUE: 6 radiographic view(s) of the [...] signed by Cameron AVELAR JR Report ID: [id number] Reading Location: [id number] Joie HU IMG XR PROCEDURES Final Result [...] states that is normal. Pt has equal director student union strength. TECHNIQUE: AP pelvis, 2 views of [...] signed by Cameron AVELAR JR Report ID: [id number] Reading Location: [id number] Procedure Note Cameron Lyons MD - 05/06/2025 [...] states that is normal. Pt has equal director student union strength. TECHNIQUE: AP pelvis, 2 views of [...] by Cameron Lyons M.D. JR: Report ID: [id number] Reading Location: [id number] Angelica Eagle MD IMG XR PROCEDURES [...] states that is normal. Pt has equal director student union strength. TECHNIQUE: 2 radiographic view(s) of the [...] by Cameron Lyons M.D. JR: Report ID: [id number] Reading Location: [id number] Procedure Note Cameron Lyons MD - 05/06/2025 [...] states that is normal. Pt has equal director student union strength. TECHNIQUE: 2 radiographic view(s) of the [...] by Cameron Lyons M.D. JR: Report ID: [id number] Reading Location: [id number] Angelica Eagle MD IMG XR PROCEDURES Final [...] tendency for uric acid stone formation. Source: [facility] Current Interpretive Data was last revised on [...] Reflex to microscopic UA will be performed. [facility] (JAME) Urine 05/06/2025 1:42 PM CDT 05/06/2025 1:53 PM CDT us Angelica Eagle MD LAB MICROBIOLOGY - GENERA L ORDERABLES Final Result [facility] (JAME) 1 [facility] Department [place] [address] * (ABNORMAL) Urinalysis, microscopic only (05/06/2025 1:42 PM CDT) WBC, ur 0-5 0 - 5 /HPF RBC, ur 0-2 0 - 2 /HPF [facility] (JAME) Epithelial cells, squamous, ur 6-10(A) 0 - 5 /HPF [facility] (JAME) Bacteria, ur Trace(A) [facility] (JAME) Mucous, ur Present(A) [facility] A (LEE) Culture Reflex Comment Reflex conditions for urine culture (WBC >10) not met. RASHMI RUDDY (LEE) Urine 05/06/2025 1:42 PM CDT 05/06/2025 1:53 PM CDT Angelica Eagle MD LAB URINE ORDERABLES Margaret neumann Result RASHMI [facility] (LEE) 1 [facility] Department [place] [address] * XR Chest 1 Vw Portable (05/06/2025 [...] states that is normal. Pt has equal director student union strength. TECHNIQUE: Single radiographic view(s) of the chest. COMPARISON: Chest radiograph 04/10/2025 FINDINGS: The heart appears normal in size. There is blunting of the left costophrenic angle which could reflect trace pleural effusion. IMPRESSION: Trace left pleural effusion. THIS IS AN ELECTRONICALLY VERIFIED FINAL REPORT 05/06/2025 12:55 PM - Electronically signed by Cameron Lyons M.D. JR: Report ID: [id number] Reading Location: [place] [address] Procedure Note Cameron Lyons MD - 05/06/2025 [...] and sees a neurologist. Pt took tylenol :30. Speech slightly slurred, but states that is [...] by Cameron Lyons M.D. JR: Report ID: [id number] Reading Location: [id number] Joie HU IMG XR PROCEDURES Final Result * ECG 12 lead (05/06/2025 12:04 PM CDT) 05/06/2025 12:0 4 PM CDT Narrative [facility] - 05/06/2025 1:14 PM CDT Vent Rate: 59 bpm RR Interval: 1011 msec HI Interval: 134 msec QRS Duration: 82 msec QT Interval: 360 msec QTC Interval: 359 msec P-R-T [place]: 40 - 6 - 53 degrees IMPRESSION: SINUS BRADYCARDIA WITH SINUS ARRHYTHMIA BORDERLINE ECG NO CHANGE FROM PREVIOUS TRACING NOTED Electronically Signed By: Jesus Vasquez MD us Angelica Eagle MD ECG ORDERABLES Final Res ult [facility] aka-aki networks [facility] * (ABNORMAL) eGFR (05/06/2025 12:04 PM [...] MD LAB BLOOD ORDERABLES Margaret neumann Result [facility] (LEE) 1 [facility] Department of Laboratories [place], [place] [id number] * Differential, auto (05/06/2025 12:04 PM CDT) [...] Margaret neumann Result RASHMI FOX (JAME) 1 [facility] [place] [address] * (ABNORMAL) CBC with auto differential (05/06/2025 12:04 PM CDT) WBC 6.83 3.80 - 9.90 K/cumm Hgb 11.4(L) 11.9 - 15.5 g/dL [facility] (JAME) Hct 35.3(L) 35.6 - 45.5 % [facility] (JAME) Plt 274 150 - 400 K/cumm [facility] (JAME) MPV 9.8 9.1 - 12.3 fL [facility] (JAME) RBC 4.10 3.90 - 5.20 M/cumm [facility] ([place]AME) MCV 86.1 81.3 - 96.4 fL [facility] ([place]AME) MCH 27.8 27.1 - 33.3 pg [facility] (JAME) MCHC 32.3 32.3 - 35.7 g/dL [facility] ([place]) RDW CV 15.7(H) 11.1 - 14.9 % [facility] ([place]) RDW SD 49.1(H) 35.7 - 48.1 fL [facility] (JAME) NRBC abs 0.00 0.00 - 0.01 K/cumm [facility] (JAME) Blood 05/06/2025 12:0 4 PM CDT 05/06/2025 12:07 PM CDT us Angelica Eagle MD LAB BLOOD ORDERABLES Margaret neumann Result [facility] (JAME) 1 [facility] Department [place] [address] * (ABNORMAL) Comprehensive metabolic panel (05/06/2025 12:04 PM CDT) Sodium 139 135 - 145 mmol/L Potassium, pl 4.8 3.3 - 4.9 mmol/L [facility] (JAME) Chloride 101 97 - 110 mmol/L [facility] ([place]) CO2 24 22 - 32 mmol/L [facility] ([place]) Anion gap 15 2 - 15 mmol/L [facility] ([place]AME) BUN 33(H) 6 - 25 mg/dL [facility] ([place]AME) Creatinine 1.00 0.60 - 1.10 mg/dL [facility] ([place]AME) Glucose 174 70 - 199 mg/dL [facility] (JAME) Comment: Interpretive Data Fasting [...] Margaret neumann Result [facility] (JAME) 1 [facility] Department [place] [address] * (ABNORMAL) eGFR (04/14/2025 10:35 AM CDT) [...] MD LAB BLOOD ORDERABLES Margaret l Result [facility] (JAME) 1 [facility] [place] [address] * (ABNORMAL) Basic metabolic panel (04/14/2025 10:35 [...] BLOOD ORDERABLES Margaret l Result [facility] (LEE) 1 [facility] [place] [address] * (ABNORMAL) Potassium (04/11/2025 11:38 AM CDT) Potassium, pl 5.1(H) 3.3 - 4.9 mmol/L Blood 04/11/2025 11:3 8 AM CDT 04/11/2025 11:43 AM CDT Harmony Wynne MD LAB BLOOD ORDERABLES Margaret l Result Performing Organization Address City/[facility] Co de Phone Number RASHMI FOX (LEE) [address] [facility] [place] [address] * (ABNORMAL) eGFR (04/11/2025 2:37 AM CDT) [...] BLOOD ORDERABLES Margaret nel Result [facility] (LEE) 1 [facility] [place] [address] * Differential, auto (04/11/2025 2:37 AM CDT) [...] Margaret neumann Result [facility] (JAME) 1 [facility] [place] [address] * (ABNORMAL) CBC with auto differential (04/11/2025 [...] MD LAB BLOOD ORDERABLES Margaret neumann Result [facility] (JAME) 1 [facility] [place] [address] * (ABNORMAL) Comprehensive metabolic panel (04/11/2025 2:37 [...] (JAME) ALT <5(L) 7 - 45 Units/L [facility] (JAME) AST 34 10 - 45 Units/L [facility] ([place]E) Comment: Hemolysis present. Results may be affected. Slightly Hemolyzed Specimen Blood 04/11/2025 2:37 AM CDT 04/11/2025 3:32 AM CDT us Silvina Elena MD LAB BLOOD ORDERABLES Margaret neumann Result RASHMI RUDDY (LEE) 1 [facility] Department of Laboratories [place], [place] [id number] * TRANSTHORACIC ECHO (TTE) COMPLETE W DOPPLER/CF WO CONTRAST (04/10/2025 3:52 PM CDT) Estimated EF 70 % CONS SCIMAGE Anatomical Region Laterality Modality Ultrasound 04/10/2025 3:42 PM CDT Narrative 04/10/2025 4:53 PM CDT [address] [address] Echocardiogram Report Patient Name: NICOLLE HERNÁNDEZ : 1935 Study Date: 04/10/2025 3:42:13 PM Gender: F Tech: Location: [id number] Ref Provider: MELVIN HUNTER Height(Cm): BSA: Weight(Kg): [...] Procedure Note Melvin Hunter MD - 04/10/[address] [place] [address] Echocardiogram Report Patient Name: NICOLLE HERNÁNDEZ : 1935 Study Date: 04/10/2025 3:42:13 PM Gender: F Tech: Location: [id number] Ref Provider: MELVIN HUNTER Height(Cm): BSA: Weight(Kg): [...] CDT) 04/10/2025 10:5 3 AM CDT Narrative [facility] - 04/10/2025 11:56 AM CDT Vent Rate: 60 bpm RR Interval: 996 msec HI Interval: 144 msec QRS Duration: 71 msec QT Interval: 370 msec QTC Interval: 370 msec P-R-T [place]: 39 - -4 - 66 degrees IMPRESSION: SINUS RHYTHM NORMAL ECG Compared to prior EKG, heart rate has increased Electronically Signed By: Jesus Vasquez MD us Silvina Elena MD ECG ORDERABLES Final Res ult [facility] * POCT glucose (04/10/2025 10:03 AM CDT) Glucose, POC 157 70 - 199 mg/dL Blood 04/10/2025 10:0 3 AM CDT 04/10/2025 10:03 AM CDT Silvina Elena MD LAB POCT ORDERABLES - DEV ICE Final Result Performing Organization Address City/[facility]/ZIP Co de Phone Number R[facility] FOX (JAME) 1 [facility] Department [place] [address] * (ABNORMAL) Urinalysis reflex to microscopic and [...] tendency for uric acid stone formation. Source: [facility] Current Interpretive Data was last revised on [...] ORDERABLES Final Result [facility] FOX (JAME) 1 [facility] [place] [address] * (ABNORMAL) Urinalysis, microscopic only (04/10/2025 9:24 AM CDT) WBC, ur 0-5 0 - 5 /HPF RBC, ur 0-2 0 - 2 /HPF [facility] (LEE) Epithelial cells, squamous, ur 1-5 0 - 5 /HPF [facility] (LEE) Bacteria, ur Trace(A) [facility] (JAME) Mucous, ur Present(A) [facility] A (LEE) Culture Reflex Comment Reflex conditions for urine culture (WBC >10) not met. [facility] (LEE) Urine 04/10/2025 9:24 AM CDT 04/10/2025 9:47 AM CDT Silvina Elena MD LAB URINE ORDERABLES Margaret neumann Result [facility] FOX (LEE) 1 [facility] [place] [address] * CT Head WO Contrast (04/10/2025 6:25 [...] Regis Reyes M.D. NS: NS Report ID: [id number] Reading Location: [id number] Procedure Note Regis Reyes MD - 04/10/2025 [...] Regis Reyes M.D. NS: NS Report ID: [id number] Reading Location: [id number] Cuco Luke MD IMG CT PROCEDURES Final Resul t * (ABNORMAL) Troponin T high-sensitivity 4-hour (04/10/2025 4:45 AM CDT) Trop T hs 28(H) <=14 ng/L Comment: Interpretive Data For further hscTnT resources including the diagnostic algorithm and an aid in interpretation, copy and paste this link: https://nrl.WebVisible.org/show/hsTrop Current Interpretive Data last revised 2020. Trop T hs delta -4 ng/L [facility] (JAME) Trop T hs interp Insignificant [facility] ([place]AME) Blood 04/10/2025 4:45 AM CDT 04/10/2025 4:53 AM CDT us Cuco Luke MD LAB BLOOD ORDERABLES Final Re sult [facility] FOX ([place]E) 1 [facility] Department [place] [address] * (ABNORMAL) Troponin T high-sensitivity 2-hour (04/10/2025 2:53 AM CDT) Trop T hs 32(H) <=14 ng/L Comment: Interpretive Data For further hscTnT resources including the diagnostic algorithm and an aid in interpretation, copy and paste this link: https://nrl.WebVisible.org/show/hsTrop Current Interpretive Data last revised 2020. Trop T hs delta 0 ng/L [facility] (JAME) Trop T hs interp Insignificant [facility] (JAME) Blood 04/10/2025 2:53 AM CDT 04/10/2025 3:59 AM CDT Cuco Luke MD LAB BLOOD ORDERABLES Final Re sult [facility] JAME 1 [facility] [place] [address] * XR Chest 1 Vw Portable (if [...] Tristan Ryan M.D. AR: CECILIA Report ID: [id number] Reading Location: [place] [address] Procedure Note Tristan Ryan MD - 04/10/2025 [...] signed by Tristan BROOKS: CECILIA Report ID: [id number] Reading Location: [id number] Cuco Luke MD IMG XR PROCEDURES Final [...] LAB BLOOD ORDERABLES Final Re sult RASHMI NOK (LEE) 8 [facility] Department [place] [address] * eGFR (04/10/2025 12:44 AM [...] ORDERABLES Final Re sult [facility]ASH[facility] (LEE) 1 [facility] [place] [address] * Differential, auto (04/10/2025 12:44 AM CDT) Neutrophil abs 2.99 1.50 - 6.50 K/cumm Imm gran abs 0.02 0.00 - 0.10 K/cumm [facility] ([place]) Lymphocyte abs 1.69 0.80 - 3.30 K/cumm [facility] ([place]) Monocyte abs 0.58 0.20 - 0.80 K/cumm [facility] ([place]) Eosinophil abs 0.05 0.00 - 0.50 K/cumm [facility] ([place]) Basophil abs 0.01 0.00 - 0.10 K/cumm [facility] ([place]) Neutrophil pct 56.0 % [facility] ([place]E) Comment: Interpretive Data Percent cell count reference ranges are not reported, since discordance with absolute values may lead to misinterpretation of CBC data. Current Interpretive Data was last revised on 2018. Imm gran pct 0.4 % [facility] ([place]E) Comment: Interpretive Data Percent cell count reference ranges are not reported, since discordance with absolute values may lead to misinterpretation of CBC data. Current Interpretive Data was last revised on 2018. Lymphocyte pct 31.6 % [facility] (LEE) Comment: Interpretive Data Percent cell count reference ranges are not reported, since discordance with absolute values may lead to misinterpretation of CBC data. Current Interpretive Data was last revised on 2018. Monocyte pct 10.9 % [facility] ([place]) Comment: Interpretive Data Percent cell count reference [...] Final Re sult [facility] (JAME) 1 [facility] [place] [address] * (ABNORMAL) CBC with auto differential (04/10/2025 [...] Final Re sult [facility] (JAME) 1 [facility] [place] [address] * (ABNORMAL) Comprehensive metabolic panel (04/10/2025 12:44 [...] (JAME) Albumin 3.4(L) 3.5 - 5.0 g/dL [facility] (JAME) Alk phos 104 40 - 130 Units/L [facility] ([place]AME) ALT <5(L) 7 - 45 Units/L [facility] ([place]AME) AST 27 10 - 45 Units/L [facility] (JAME) Comment: Hemolysis present. Results may be affected. Slightly Hemolyzed Specimen Blood 04/10/2025 12:4 4 AM CDT 04/10/2025 12:59 AM CDT Cuco Luke MD LAB BLOOD ORDERABLES Final Re sult Performing Organization Address City/[facility] Co de Phone Number RASHMI [facility] (LEE) [address] [place] [address] of Laboratories [place] [id number] * ECG 12 lead (04/10/2025 12:32 AM CDT) 04/10/2025 12:3 2 AM CDT Narrative [facility] - 04/10/2025 8:35 AM CDT Vent Rate: 41 bpm RR Interval: 1434 msec HI Interval: 144 msec QRS Duration: 72 msec QT Interval: 407 msec QTC Interval: 345 msec P-R-T [place]: 41 - -4 - 52 degrees IMPRESSION: SINUS BRADYCARDIA WITH SINUS ARRHYTHMIA POSSIBLE LEFT ATRIAL ENLARGEMENT [-0.1mV P WAVE IN V1/V2] BORDERLINE ECG NO CHANGE FROM PREVIOUS TRACING NOTED Electronically Signed By: Jesus Vasquez MD Cuco Luke MD ECG ORDERABLES Final Result Performing Organization Address [facility] Co de Phone Number [facility] aka-aki networks [facility] * (ABNORMAL) Hemoglobin A1c (01/21/2025 3:11 PM CDT) Hgb A1C 6.2(H) 4.0 - 5.6 % Estimated Average Glucose 131 mg/dL [facility] (JAME) Comment: The ADA recommends reporting an estimated Average Glucose (eAG) with all Hemoglobin A1c results using the equation derived from a study of 507 normal and diabetic adults. Minority populations were underrepresented and children were not included. (Diabetes Care 31:7183-3283, 2008). The eAG is not equivalent to a fasting glucose. Blood 01/21/2025 3:11 PM CDT 01/21/2025 3:15 PM CDT Narrative [facility] FOX (JAME) - 01/21/2025 4:11 PM CDT FASTING 1-2 WEEKS BEFORE JANUARY 2025 APPT us Fede HU LAB BLOOD ORDERABLES Fi nal Result SEJALBRITTANY FOX (JAME) 1 [facility] [place] [address] * Lipid panel (01/21/2025 3:11 PM CDT) [...] ORDERABLES Fi nal Result Performing Organization Address City/[facility]/ZIP Co de Phone Number RASHMI FOX (JAME) [address] [facility] [place] [address] * (ABNORMAL) Albumin Creatinine Ratio, Urine (06/11/2024 3:25 PM CDT) Pathologist [facility] Albumin Ur 577.8 mg/L Comment: Interpretive Data No reference range established. Current interpretive data was last revised 2019. Testing performed by: [facility], [address] [place] [address]., [address] Creatinine Ur 117.5 mg/dL RASHMI FOX (JAME) Comment: Interpretive Data No reference range established. Current interpretive data was last revised 2019. Testing performed by: [facility], [address] [place] [address]., [address] Albumin Creatinine Ratio, Ur 492(H) 1 - 29 mg/g RAHSMI FOX (JAME) Comment:Testing performed by : [facility], [address] [place] [address]., [address] Urine 06/11/2024 3:25 PM CDT 06/12/2024 9:00 AM CDT us Fede HU LAB URINE ORDERABLES Fi nal Result Performing Organization Address [facility]/ZIP Co de Phone Number RASHMI FOX (JAME) 1 [facility] [place] [address] * Diabetic Eye Exam (06/25/2023) us Generic External Data Provider HEALTH MAINTENANC E Final Result * FIT occult blood, fecal (09/02/2020 9:16 AM CDT) FIT occult blood, fecal Negative Negative [facility] FOX (JAME) Comment: Negative result. This test will not detect upper gastrointestinal bleeding; the HemoQuant test ([id number])should be ordered if clinically indicated. Test Performed by: [address] [address] Hadoop Administrator: Jake Mcgarry M.D. Ph.D.; CLIA# [id number] Stool 09/02/2020 9:16 AM CDT 09/02/2020 1:30 PM CDT us George Young MD LAB BODY FLUIDS AND STOOLS ORDERABLES Final Result RASHMI FOX (JAME) 1 [facility] [place] [address] * Screening Mammogram Bilateral W Mane (07/27/2020 [...] Relevant to Health Maintenance Insurance MEDICARE COMMERCIAL GENERIC MEDICARE [employer] Advance Directives For more information, please contact: [phone] * Full Code (Latest Code Status on [...] Relationship Healthcare Agent Relationship Communication Red [place] Spouse First Altern ate Health Care Agent [email or web address] Teams Manager Federal Relationship Specialty Start Date End Date Fede Mills PA [address] [facility] [place] [address] PCP - General Internal Medicine 07/04/22 Lynda Silvestre MD [address] [place] [address] Referring Physician Ophthalmology 11/13/22 Victor Manuel Real MD [address] [place] [address] [address] [place] [address] Consulting Physician Neurology 01/18/24 Nazario Osman DPM [address] [place] [address] Consulting Physician Orthotics 01/18/24 Concha Prakash, LAMINE [address] [place] [address] [address] [place] [address] Tin Cutter 05/06/25
--- NOTE | 2025-05-13 17:15 | PC.NURSE ---
Attempted to call [facility] to give report. No answer by staff after waiting for 5 minutes on hold.
--- OUTSIDE RECORDS SUMMARY | 2025-05-13 17:15 | XMS_ITS | Encounter Summary ---
Author Organization [facility] Healthcare Address [address] [place] [id number] Care Team Providers Care Commercial Loan Assistant Name Role Phone Fede Mills Primary Care Provider Lynda Silvestre MD Unavailable [phone] Victor Manuel Real MD Unavailable [phone] Nazario Osman DPM Unavailable [phone] Concha Borjas RN Unavailable [phone] Reason for Visit * Reason Onset Date Comments Concerns for sudden weakness this morning 2024 Encounter Details Date Type Department Care Team (Late st Contact Info) Description 05/06/2025 Telephone [facility] Primary [facility] at [place] [address] [facility] [address] [place] [address] Fede Mills PA [address] [place] [address] [address] [place] [address] Concerns for sudden weakness this morning Social History Tobacco Use Types Packs/Day Years Used Date Smoking Tobacco: Never Smokeless Tobacco: Never Alcohol Use Standard Drinks/Week Comments No 0 (1 standard drink = 0.6 oz pur e alcohol) [facility] Utilities Answer Date Recorded In the past 12 months has [employer], gas, oil, or water company threatened to [...] often do you attend chur ch or islam services? Never 05/07/2025 Do you belong to any clubs o r organizations such as jehovah's witness groups, unions, fraternal or athletic groups, or [...] place to sleep or slept in a usp (including now)? No 11/23/2023 Housing Stability Vital [...] were you homeless or living in a usp (including now)? 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 Thank you, Concha Borjas RN, BSN, [facility] Accountable Care Organization Email [email or web address] documented in this encounter Plan of Treatment Not on file documented as of this encounter Visit Diagnoses Not on filedocumented in this encounter Care Teams Commercial Loan Assistant Relationship Specialty Start Date End Date Fede Mills PA [address] [facility] [address] [place] [address] PCP - General Internal Medicine 07/04/22 Lynda Silvestre MD [address] [place] [address] Referring Physician Ophthalmology 11/13/22 Victor Manuel Real MD [address] [facility] [address] [place] [address] Consulting Physician Neurology 01/18/24 Nazario Osman DPM [address] [place] [address] Consulting Physician Orthotics 01/18/24 Concha Borjas, LAMINE [address] [place] [address] [address] [place] [address] Psychiatric Aide Instructor 05/06/25 documented as of this encounter
--- OUTSIDE RECORDS SUMMARY | 2025-05-13 17:15 | XMS_ITS | Encounter Summary ---
Author Organization [facility] Address [address] [address] Care Team Providers Care Lathe Setup Operator Name Role Phone Otf Young MD Primary Care Provi patricia Otf Young MD Primary Care Provi patricia Otf Young MD Primary Care Provi patricia Otf Young MD Primary Care Provi patricia Otf Young MD Primary Care Provi patricia Otf Young MD Primary Care Provi patricia Fede Mills Primary Care Provider Lynda Silvestre MD Unavailable [phone] Victor Manuel Real MD Unavailable [phone] Nazario Osman DPM Unavailable [phone] Concha Prakash RN Unavailable [phone] Concha Prakash RN Unavailable [phone] Encounter Details Date Type Department Care Team (Late st Contact Info) Description 06/25/2007 Orders Only [facility] [address] [place] [address] Otf Young MD [address] [facility] [place] [address] Social History Tobacco Use Types Packs/Day Years Used Date Smoking Tobacco: Never Assessed Comments Unknown Sex and Gender Information Value Date Recorded Sex Assigned at Not on file 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 Gender Identity Not on file Sexual Orientation [...] documented as of this encounter Care Teams Lathe Setup Operator Relationship Specialty Start Date End Date Otf Young MD PCP - General 02/02/17 07/03/22 Otf Young MD PCP - General 01/08/17 02/01/17 Otf Young MD PCP - General 10/06/13 01/07/17 Otf Young MD PCP - General 09/24/07 10/05/13 Otf Young MD PCP - General 08/22/07 09/23/07 Otf Young MD PCP - General 05/29/07 08/21/07 Fede Mills PA [address] [place] [address] [address] [place] [address] PCP - General Internal Medicine 07/04/22 Lynda Silvestre MD [address] [place] [address] Referring Physician Ophthalmology 11/13/22 Victor Manuel Real MD [address] [place] [address] [address] [place] [address] Consulting Physician Neurology 01/18/24 Nazario Osman DPM [address] [place] [address] Consulting Physician Orthotics 01/18/24 Concha Prakash RN [address] [place] [address] [address] [place] [address] Cruise Coordinator 04/13/25 04/29/25 Concha Prakash RN [address] [place] [address] [address] [place] [address] Cruise Coordinator 05/06/25 documented as of this encounter
--- OUTSIDE RECORDS SUMMARY | 2025-05-13 17:15 | XMS_ITS | Clinical Summary ---
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 2023-11 00:00: [...] 180 mg tablet 12-06 00:00: 00 Yes [id number] ALLERGIES 1 tablet DAILY 1 tablet DAILY (route: oral) Med Classific ation: Respirato ry Therapy Agents amitriptyli ne 25 mg tablet 12-06 00:00: 00 05-22 23:59 :00 No [id number] SLEEP 2 tablet BEDTIME 2 tablet BEDTIME (route: oral) Med Classific ation: Central Nervous System Agents aspirin 81 mg tablet,louie yed release 2023-11 00:00: 00 Yes [id number] BLOOD THINNER 1 tablet DAILY 1 tablet DAILY (route: oral) Med Classific ation: Hematolog ical Agents levothyroxi ne 25 mcg tablet 2023-11 00:00: 00 Yes [id number] THYROID 1 tablet BEFORE BREAKFAST 1 tablet BEFORE BREAKFAST (route: oral) Med Classific ation: Endocrine Multivitami n 50 Plus tablet 2023-11 00:00: 00 Yes [id number] VITAMIN 1 tablet DAILY 1 tablet DAILY (route: oral) Med Classific ation: Electroly te Balance-N utritiona l Products simvastatin 10 mg tablet 12-06 00:00: 00 Yes [id number] CHOLESTEROL 1 tablet BEDTIME 1 tablet BEDTIME (route: oral) Med Classific ation: Cardiovas cular Therapy Agents spironolact one 25 mg tablet 12-06 00:00: 00 05-14 00:00 :00 No [id number] DIURETIC 1 tablet DAILY 1 tablet DAILY (route: oral) Med Classific ation: Cardiovas cular Therapy Agents Systane (propylene glycol) 0.4 %-0.3 % eye drops 12-06 00:00: 00 04-19 00:00 :00 No [id number] DRY EYES 1 drops NEEDED 1 drops NEEDED (route: ophthalmic (eye)) Med Classific ation: Ophthalmi c Agents Tylenol Extra Strength 500 mg tablet 12-06 00:00: 00 04-19 00:00 :00 No [id number] PAIN 1 tablet NEEDED 1 tablet NEEDED (route: oral) Med Classific ation: Analgesic , Anti-infl ammatory or Antipyret ic Flonase Allergy Relief 50 mcg/actuati on nasal spray,suspe nsion 12-06 00:00: 00 Yes [id number] ALLERGIES 2 spray DAILY 2 spray DAILY (route: nasal) Med Classific ation: Respirato ry Therapy Agents Metamucil 3.4 gram/5.4 gram oral powder 2023-11 00:00: 00 Yes [id number] CONSTIPATIO N Per instruc tions DAILY Per instructio ns DAILY (route: oral) Med Classific ation: Gastroint estinal Therapy Agents Emgality 120 mg/mL subcutaneou s syringe 2023-11 00:00: 00 Yes [id number] HEADACHE 120 mg MONTHLY 120 mg MONTHLY (route: subcutaneo us) Med Classific ation: Central Nervous System Agents amlodipine 2.5 mg tablet 2023-11 00:00: 00 04-19 00:00 :00 No [id number] BLOOD PRESSURE 1 tablet DAILY 1 tablet DAILY (route: oral) Med Classific ation: Cardiovas cular Therapy Agents carvedilol 6.25 mg tablet 05-14 00:00: 00 04-19 23:59 :00 No [id number] BLOOD PRESSURE 1 tablet 2 TIMES DAILY 1 tablet 2 TIMES DAILY (route: oral) Med Classific ation: Cardiovas cular Therapy Agents furosemide 40 mg tablet 05-14 00:00: 00 04-19 23:59 :00 No [id number] FLUID RETENTION 1 tablet DAILY 1 tablet DAILY (route: oral) Med Classific ation: Cardiovas cular Therapy Agents lidocaine 5 % topical patch 10 00:00: 00 04-19 00:00 :00 No [id number] PAIN 1 adhesiv e patch, medicat ed 2 TIMES DAILY 1 adhesive patch, medicated 2 TIMES DAILY (route: topical) Med Classific ation: Dermatolo gical midodrine 5 mg tablet 2023-11 00:00: 00 04-19 00:00 :00 No [id number] HYPOTENSION 1 tablet 2 TIMES DAILY 1 tablet 2 TIMES DAILY (route: oral) Med Classific ation: Cardiovas cular Therapy Agents Santyl 250 unit/gram topical ointment 08-01 00:00: 00 09-28 00:00 :00 No [id number] WOUND Per instruc tions DAILY Per instructio ns DAILY (route: topical) Med Classific ation: Dermatolo gical acetaminoph en 500 mg capsule 2023-11 00:00: 00 Yes [id number] PAIN 1 capsule EVERY 4 HOURS 1 capsule EVERY 4 HOURS (route: oral) Med Classific ation: Analgesic , Anti-infl ammatory or Antipyret ic Artificial Tears (PF) 0.1 %-0.3 % drops in a dropperette 2023-11 00:00: 00 Yes [id number] EYES 2 dropper ette 2 TIMES DAILY 2 dropperett e 2 TIMES DAILY (route: ophthalmic (eye)) Med Classific ation: Ophthalmi c Agents carbamazepi ne 100 mg chewable tablet 2023-11 00:00: 00 Yes [id number] SEIZURES 1 tablet DAILY 1 tablet DAILY (route: oral) Med Classific ation: Central Nervous System Agents carbidopa 25 mg-levodopa 100 mg tablet 2023-11 00:00: 00 Yes [id number] PARKINSON'S 1 tablet 3 TIMES DAILY 1 tablet 3 TIMES DAILY (route: oral) Med Classific ation: Central Nervous System Agents fexofenadin e 60 mg tablet 2023-11 00:00: 00 04-19 23:59 :00 No [id number] ALLERGIES 1 tablet DAILY 1 tablet DAILY (route: oral) Med Classific ation: Respirato ry Therapy Agents Miralax 17 gram oral powder packet 2023-11 00:00: 00 Yes [id number] CONSTIPATIO N 1 packet DAILY 1 packet DAILY (route: oral) Med Classific ation: Gastroint estinal Therapy Agents ciprofloxac in 500 mg tablet 2023-11 00:00: 00 10-14 23:59 :00 No [id number] ANTIBIOTICS 1 tablet 2 TIMES DAILY 1 tablet 2 TIMES DAILY (route: oral) Med Classific ation: Anti-Infe ctive Agents ciprofloxac in 500 mg tablet 2023-11 00:00: 00 11-24 00:00 :00 No [id number] UTI 1 tablet 2 TIMES DAILY 1 tablet 2 TIMES DAILY (route: oral) Med Classific ation: Anti-Infe ctive Agents Allergy Relief (fexofenadi ne) 180 mg tablet 04-19 00:00: 00 Yes [id number] ALLERGIES ... 1 tablet DAILY 1 tablet DAILY (route: oral) Med Classific ation: Respirato ry Therapy Agents amlodipine 5 mg tablet 04-19 00:00: 00 Yes [id number] HIGH BLOOD PRESSURE 1 tablet DAILY 1 [...] TO EVALUATE, OBSERVE / ASSESS, AND MONITOR, COPY SUPERVISOR TO OBSERVE AND MONITOR, PROVIDE SKILLED THERAPEUTIC INTERVENTION, ACTIVITY, EDUCATION, AND TRAINING TO ADDRESS; [code = AGENCY MAY PERFORM A RESUMPTION OF CARE VISIT FOLLOWING ANY HOSPITAL ADMISSION. PT TO EVALUATE, OBSERVE / ASSESS, AND MONITOR, COPY SUPERVISOR TO OBSERVE AND MONITOR, PROVIDE SKILLED THERAPEUTIC INTERVENTION, ACTIVITY, EDUCATION, AND TRAINING TO ADDRESS;] Future Scheduled Test BED MOBILI TY (PT/COPY SUPERVISOR) [code = BED MOBILITY (PT/COPY SUPERVISOR)] Future Scheduled Test SIT TO/FRO M STAND TRANSFERS (PT/COPY SUPERVISOR) [code = SIT TO/FROM STAND TRANSFERS (PT/COPY SUPERVISOR)] Future Scheduled Test PT/COPY SUPERVISOR TO PROVIDE GAIT TRAINING FOR IMPROVED MOBILITY AND /OR TO NORMALIZE GAIT PATTERN [code = PT/COPY SUPERVISOR TO PROVIDE GAIT TRAINING FOR IMPROVED MOBILITY AND /OR TO NORMALIZE GAIT PATTERN] Future Scheduled Test NEUROMUSCU LAR RE-EDUCATION / BALANCE / POSTURAL CONTROL (PT) [code = NEUROMUSCULAR RE-EDUCATION / BALANCE / POSTURAL CONTROL (PT)] Future Scheduled Test THERAPEUTI C EXERCISES AND ESTABLISHING A HOME EXERCISE PROGRAM (PT/COPY SUPERVISOR) [code = THERAPEUTIC EXERCISES AND ESTABLISHING A HOME EXERCISE PROGRAM (PT/COPY SUPERVISOR)] Future Scheduled Test PT/COPY SUPERVISOR TO IDENTIFY FALL RISK FACTORS; EDUCATE THE PATIENT/CAREGIVER ON WAYS TO REDUCE FALL RISK FACTORS AND ESTABLISH HOME EXERCISE PROGRAM TO MINIMIZE FALL RISK. MAY TEACH THE PATIENT FLOOR RECOVERY WHEN CLINICALLY APPROPRIATE [code = PT/COPY SUPERVISOR TO IDENTIFY FALL RISK FACTORS; EDUCATE THE PATIENT/CAREGIVER ON WAYS TO REDUCE FALL RISK FACTORS AND ESTABLISH HOME EXERCISE PROGRAM TO MINIMIZE FALL RISK. MAY TEACH THE PATIENT FLOOR RECOVERY WHEN CLINICALLY APPROPRIATE] Future Scheduled Test PT / COPY SUPERVISOR T O EDUCATE ON HYPERTENSION SELF-MANAGEMENT [code = PT / COPY SUPERVISOR TO EDUCATE ON HYPERTENSION SELF-MANAGEMENT] Future Scheduled Test PT / COPY SUPERVISOR T O EDUCATE ON HEART FAILURE SELF-MANAGEMENT [code = PT / COPY SUPERVISOR TO EDUCATE ON HEART FAILURE SELF-MANAGEMENT] Future Scheduled Test PT TO ASSE SS / COPY SUPERVISOR TO MONITOR FOR HEART FAILURE EXACERBATION AND RECORD PATIENT REPORTED WEIGHT, AND NOTIFY THE PHYSICIAN AND/OR THE RN CLINICAL UX DEVELOPER DESIGNER FOR PHYSICIAN NOTIFICATION OF HF EXACERBATION (2LB WEIGHT GAIN IN 1 DAY, 5LBS IN A WEEK OR 5 LBS OVER BASELINE; INCREASED SOB, EDEMA, NEEDING MORE PILLOWS AT NIGHT, CRACKLES IN BASIS OF THE LUNGS OR PMI SHIFT) [code = PT TO ASSESS / COPY SUPERVISOR TO MONITOR FOR HEART FAILURE EXACERBATION AND RECORD PATIENT REPORTED WEIGHT, AND NOTIFY THE PHYSICIAN AND/OR THE RN CLINICAL UX DEVELOPER DESIGNER FOR PHYSICIAN NOTIFICATION OF HF EXACERBATION (2LB WEIGHT GAIN IN 1 DAY, 5LBS IN A WEEK OR 5 LBS OVER BASELINE; INCREASED SOB, EDEMA, NEEDING MORE PILLOWS AT NIGHT, CRACKLES IN BASIS OF THE LUNGS OR PMI SHIFT)] Future Scheduled Test AGENCY MAY PERFORM A RESUMPTION OF CARE VISIT FOLLOWING ANY HOSPITAL ADMISSION. OT TO EVALUATE, OBSERVE / ASSESS, AND MONITOR, COMMUNITY ACTION WORKER TO OBSERVE AND MONITOR, PROVIDE SKILLED THERAPEUTIC INTERVENTION, ACTIVITY, EDUCATION, AND TRAINING TO ADDRESS SAFETY AND INDEPENDENCE OF ADLS AND FUNCTIONAL TRANSFERS IN HOME ENVRIONMENT. BATHING/SHOWERING (OT/COMMUNITY ACTION WORKER) ACTIVITIES OF DAILY LIVING (OT/ARIN) TOILET TRANSFER (OT/ARIN) BATH/SHOWER TRANSFER (OT/COMMUNITY ACTION WORKER) THERAPEUTIC EXERCISE (OT/COMMUNITY ACTION WORKER) OT / ARIN TO EDUCATE ON DIABETES SELF- MANAGEMENT OT/COMMUNITY ACTION WORKER TO MONITOR AND EDUCATE ON OXYGEN SATURATION DURING ADLS/IADLS, NOTIFY PHYSICIAN AND/OR THE RN CLINICAL UX DEVELOPER DESIGNER FOR PHYSICIAN NOTIFICATION AND IF O2 SATS BELOW 90% AFTER 10 MIN OF REST. OT/ARIN MAY EDUCATE ON PAIN MANAGEMENT CLINICALLY INDICATED, INCLUDING NON-PHARMACOLOGICAL PAIN REDUCTION TECHNIQUES OT / ARIN TO IDENTIFY FALL RISK FACTORS; EDUCATE THE PATIENT/CAREGIVER ON WAYS TO REDUCE FALL RISK FACTORS AND ESTABLISH HOME EXERCISE PROGRAM TO MINIMIZE FALL RISK. MAY TEACH THE PATIENT FLOOR RECOVERY WHEN CLINICALLY APPROPRIATE. 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 OT TO EVALUATE, OBSERVE / ASSESS, AND MONITOR, COMMUNITY ACTION WORKER TO OBSERVE AND MONITOR, PROVIDE SKILLED THERAPEUTIC INTERVENTION, ACTIVITY, EDUCATION, AND TRAINING TO ADDRESS SAFETY AND INDEPENDENCE OF ADLS AND FUNCTIONAL TRANSFERS IN HOME ENVRIONMENT. BATHING/SHOWERING (OT/ARIN) ACTIVITIES OF DAILY LIVING (OT/COMMUNITY ACTION WORKER) TOILET TRANSFER (OT/COMMUNITY ACTION WORKER) BATH/SHOWER TRANSFER (OT/ARIN) THERAPEUTIC EXERCISE (OT/ARIN) OT / ARIN TO EDUCATE ON DIABETES SELF- MANAGEMENT OT/COMMUNITY ACTION WORKER TO MONITOR AND EDUCATE ON OXYGEN SATURATION DURING ADLS/IADLS, NOTIFY PHYSICIAN AND/OR THE RN CLINICAL UX DEVELOPER DESIGNER FOR PHYSICIAN NOTIFICATION AND IF O2 SATS BELOW 90% AFTER 10 MIN OF REST. OT/ARIN MAY EDUCATE ON PAIN MANAGEMENT CLINICALLY INDICATED, INCLUDING NON-PHARMACOLOGICAL PAIN REDUCTION TECHNIQUES OT / ARIN TO IDENTIFY FALL RISK FACTORS; EDUCATE THE PATIENT/CAREGIVER ON WAYS TO REDUCE FALL RISK FACTORS AND ESTABLISH HOME EXERCISE PROGRAM TO MINIMIZE FALL RISK. MAY TEACH THE PATIENT FLOOR RECOVERY WHEN CLINICALLY APPROPRIATE. 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
--- OUTSIDE RECORDS SUMMARY | 2025-05-13 17:15 | XMS_ITS | Encounter Summary ---
Author Organization [facility] Healthcare Address [address] [place] [address] Care Team Providers Care Audiology Assistant Name Role Phone Fede Mills Primary Care Provider Lynda Silvestre MD Unavailable [phone] Victor Manuel Real MD Unavailable [phone] Nazario Osman DPM Unavailable [phone] Concha Prakash RN Unavailable [phone] Concha Prakash RN Unavailable [phone] Reason for Visit * Reason Onset Date Comments Additional Services Or Orders 04/14/2025 Encounter Details Date Type Department Care Team (Late st Contact Info) Description 04/14/[address] [facility] Primary Care at [address] [place] [address] Fede Mills PA [address] [place] [address] [address] [place] [address] Additional Services Or Orders Social History Tobacco Use Types Packs/Day Years Used Date Smoking Tobacco: Never Smokeless Tobacco: Never Alcohol Use Standard Drinks/Week Comments No 0 (1 standard drink = 0.6 oz pur e alcohol) [facility] Utilities Answer Date Recorded In the past 12 months has th e electric, gas, oil, or water [employer] threatened to shut off services in your home? No 04/13/2025 Social Connection and Isolation Panel [NHANES] A nswer Date Recorded In a typical week, how many times do you talk on the phone with family, friends, or neighbors? Twice a week 04/13/2025 How often do you get together with friends or re latives? Twice a week 04/13/2025 How often do you attend adventism or amish serv ices? Never 04/13/2025 Do you belong to any clubs o r organizations such as adventism groups, unions, fraternal or athletic groups, or [...] any time in the past 12 m [facility], were you homeless or living in [...] on file Legal Sex Female 11:52 PM OPERATIONS ASST Gender Identity Not on file Sexual Orientation [...] of COVID exposure if applicable): Recent dischargefrom [facility] Details Regarding Additional Services (e.g. type of home health, type of equipment, type of test, etc.): Home health Where will services be performed? (if outside of the practice, facility name, address, phone/fax offacility): Patient's residence Additional Comments: Mushtaq with [employer] would like to know if the PA will follow the patient for PT and OT. Does message need to be routed? Yes-Action Needed documented in this encounter Plan of Treatment Not on file documented as of this encounter Visit Diagnoses Not on filedocumented in this encounter Care Teams Audiology Assistant Relationship Specialty Start Date End Date Fede Mills PA [address] [facility] [address] [place] [address] PCP - General Internal Medicine 07/04/22 Lynda Silvestre MD [address] [place] [address] Referring Physician Ophthalmology 11/13/22 Victor Manuel Real MD [address] [facility] [facility] [address] [place] [address] Consulting Physician Neurology 01/18/24 Nazario Osman DPM [address] [place] [id number] Consulting Physician Orthotics 01/18/24 Concha Prakash, LAMINE [address] [place] [address] [address] [place] [address] Fitter'S Assistant 04/13/25 04/29/25 Concha Prakash, LAMINE [address] [place] [address] [address] [place] [address] Fitter'S Assistant 05/06/25 documented as of this encounter
--- OUTSIDE RECORDS SUMMARY | 2025-05-13 17:15 | XMS_ITS | Clinical Summary ---
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 2023-11 00:00: [...] 180 mg tablet 12-06 00:00: 00 Yes [id number] ALLERGIES 1 tablet DAILY 1 tablet DAILY (route: oral) Med Classific ation: Respirato ry Therapy Agents amitriptyli ne 25 mg tablet 12-06 00:00: 00 05-22 23:59 :00 No [id number] SLEEP 2 tablet BEDTIME 2 tablet BEDTIME (route: oral) Med Classific ation: Central Nervous System Agents aspirin 81 mg tablet,louie yed release 2023-11 00:00: 00 Yes [id number] BLOOD THINNER 1 tablet DAILY 1 tablet DAILY (route: oral) Med Classific ation: Hematolog ical Agents levothyroxi ne 25 mcg tablet 2023-11 00:00: 00 Yes [id number] THYROID 1 tablet BEFORE BREAKFAST 1 tablet BEFORE BREAKFAST (route: oral) Med Classific ation: Endocrine Multivitami n 50 Plus tablet 2023-11 00:00: 00 Yes [id number] VITAMIN 1 tablet DAILY 1 tablet DAILY (route: oral) Med Classific ation: Electroly te Balance-N utritiona l Products simvastatin 10 mg tablet 12-06 00:00: 00 Yes [id number] CHOLESTEROL 1 tablet BEDTIME 1 tablet BEDTIME (route: oral) Med Classific ation: Cardiovas cular Therapy Agents spironolact one 25 mg tablet 12-06 00:00: 00 05-14 00:00 :00 No [id number] DIURETIC 1 tablet DAILY 1 tablet DAILY (route: oral) Med Classific ation: Cardiovas cular Therapy Agents Systane (propylene glycol) 0.4 %-0.3 % eye drops 12-06 00:00: 00 04-19 00:00 :00 No [id number] DRY EYES 1 drops NEEDED 1 drops NEEDED (route: ophthalmic (eye)) Med Classific ation: Ophthalmi c Agents Tylenol Extra Strength 500 mg tablet 12-06 00:00: 00 04-19 00:00 :00 No [id number] PAIN 1 tablet NEEDED 1 tablet NEEDED (route: oral) Med Classific ation: Analgesic , Anti-infl ammatory or Antipyret ic Flonase Allergy Relief 50 mcg/actuati on nasal spray,suspe nsion 12-06 00:00: 00 Yes [id number] ALLERGIES 2 spray DAILY 2 spray DAILY (route: nasal) Med Classific ation: Respirato ry Therapy Agents Metamucil 3.4 gram/5.4 gram oral powder 2023-11 00:00: 00 Yes [id number] CONSTIPATIO N Per instruc tions DAILY Per instructio ns DAILY (route: oral) Med Classific ation: Gastroint estinal Therapy Agents Emgality 120 mg/mL subcutaneou s syringe 2023-11 00:00: 00 Yes [id number] HEADACHE 120 mg MONTHLY 120 mg MONTHLY (route: subcutaneo us) Med Classific ation: Central Nervous System Agents amlodipine 2.5 mg tablet 2023-11 00:00: 00 04-19 00:00 :00 No [id number] BLOOD PRESSURE 1 tablet DAILY 1 tablet DAILY (route: oral) Med Classific ation: Cardiovas cular Therapy Agents carvedilol 6.25 mg tablet 05-14 00:00: 00 04-19 23:59 :00 No [id number] BLOOD PRESSURE 1 tablet 2 TIMES DAILY 1 tablet 2 TIMES DAILY (route: oral) Med Classific ation: Cardiovas cular Therapy Agents furosemide 40 mg tablet 05-14 00:00: 00 04-19 23:59 :00 No [id number] FLUID RETENTION 1 tablet DAILY 1 tablet DAILY (route: oral) Med Classific ation: Cardiovas cular Therapy Agents lidocaine 5 % topical patch 10 00:00: 00 04-19 00:00 :00 No [id number] PAIN 1 adhesiv e patch, medicat ed 2 TIMES DAILY 1 adhesive patch, medicated 2 TIMES DAILY (route: topical) Med Classific ation: Dermatolo gical midodrine 5 mg tablet 2023-11 00:00: 00 04-19 00:00 :00 No [id number] HYPOTENSION 1 tablet 2 TIMES DAILY 1 tablet 2 TIMES DAILY (route: oral) Med Classific ation: Cardiovas cular Therapy Agents Santyl 250 unit/gram topical ointment 08-01 00:00: 00 09-28 00:00 :00 No [id number] WOUND Per instruc tions DAILY Per instructio ns DAILY (route: topical) Med Classific ation: Dermatolo gical acetaminoph en 500 mg capsule 2023-11 00:00: 00 Yes [id number] PAIN 1 capsule EVERY 4 HOURS 1 capsule EVERY 4 HOURS (route: oral) Med Classific ation: Analgesic , Anti-infl ammatory or Antipyret ic Artificial Tears (PF) 0.1 %-0.3 % drops in a dropperette 2023-11 00:00: 00 Yes [id number] EYES 2 dropper ette 2 TIMES DAILY 2 dropperett e 2 TIMES DAILY (route: ophthalmic (eye)) Med Classific ation: Ophthalmi c Agents carbamazepi ne 100 mg chewable tablet 2023-11 00:00: 00 Yes [id number] SEIZURES 1 tablet DAILY 1 tablet DAILY (route: oral) Med Classific ation: Central Nervous System Agents carbidopa 25 mg-levodopa 100 mg tablet 2023-11 00:00: 00 Yes [id number] PARKINSON'S 1 tablet 3 TIMES DAILY 1 tablet 3 TIMES DAILY (route: oral) Med Classific ation: Central Nervous System Agents fexofenadin e 60 mg tablet 2023-11 00:00: 00 04-19 23:59 :00 No [id number] ALLERGIES 1 tablet DAILY 1 tablet DAILY (route: oral) Med Classific ation: Respirato ry Therapy Agents Miralax 17 gram oral powder packet 2023-11 00:00: 00 Yes [id number] CONSTIPATIO N 1 packet DAILY 1 packet DAILY (route: oral) Med Classific ation: Gastroint estinal Therapy Agents ciprofloxac in 500 mg tablet 2023-11 00:00: 00 10-14 23:59 :00 No [id number] ANTIBIOTICS 1 tablet 2 TIMES DAILY 1 tablet 2 TIMES DAILY (route: oral) Med Classific ation: Anti-Infe ctive Agents ciprofloxac in 500 mg tablet 2023-11 00:00: 00 11-24 00:00 :00 No [id number] UTI 1 tablet 2 TIMES DAILY 1 tablet 2 TIMES DAILY (route: oral) Med Classific ation: Anti-Infe ctive Agents Allergy Relief (fexofenadi ne) 180 mg tablet 04-19 00:00: 00 Yes [id number] ALLERGIES ... 1 tablet DAILY 1 tablet DAILY (route: oral) Med Classific ation: Respirato ry Therapy Agents amlodipine 5 mg tablet 04-19 00:00: 00 Yes [id number] HIGH BLOOD PRESSURE 1 tablet DAILY 1 [...] TO EVALUATE, OBSERVE / ASSESS, AND MONITOR, COMMERCIAL INSURANCE UNDERWRITER TO OBSERVE AND MONITOR, PROVIDE SKILLED THERAPEUTIC INTERVENTION, ACTIVITY, EDUCATION, AND TRAINING TO ADDRESS; [code = AGENCY MAY PERFORM A RESUMPTION OF CARE VISIT FOLLOWING ANY HOSPITAL ADMISSION. PT TO EVALUATE, OBSERVE / ASSESS, AND MONITOR, COMMERCIAL INSURANCE UNDERWRITER TO OBSERVE AND MONITOR, PROVIDE SKILLED THERAPEUTIC INTERVENTION, ACTIVITY, EDUCATION, AND TRAINING TO ADDRESS;] Future Scheduled Test BED MOBILI TY (PT/COMMERCIAL INSURANCE UNDERWRITER) [code = BED MOBILITY (PT/COMMERCIAL INSURANCE UNDERWRITER)] Future Scheduled Test SIT TO/FRO M STAND TRANSFERS (PT/COMMERCIAL INSURANCE UNDERWRITER) [code = SIT TO/FROM STAND TRANSFERS (PT/COMMERCIAL INSURANCE UNDERWRITER)] Future Scheduled Test PT/COMMERCIAL INSURANCE UNDERWRITER TO PROVIDE GAIT TRAINING FOR IMPROVED MOBILITY AND /OR TO NORMALIZE GAIT PATTERN [code = PT/COMMERCIAL INSURANCE UNDERWRITER TO PROVIDE GAIT TRAINING FOR IMPROVED MOBILITY AND /OR TO NORMALIZE GAIT PATTERN] Future Scheduled Test NEUROMUSCU LAR RE-EDUCATION / BALANCE / POSTURAL CONTROL (PT) [code = NEUROMUSCULAR RE-EDUCATION / BALANCE / POSTURAL CONTROL (PT)] Future Scheduled Test THERAPEUTI C EXERCISES AND ESTABLISHING A HOME EXERCISE PROGRAM (PT/COMMERCIAL INSURANCE UNDERWRITER) [code = THERAPEUTIC EXERCISES AND ESTABLISHING A HOME EXERCISE PROGRAM (PT/COMMERCIAL INSURANCE UNDERWRITER)] Future Scheduled Test PT/COMMERCIAL INSURANCE UNDERWRITER TO IDENTIFY FALL RISK FACTORS; EDUCATE THE PATIENT/CAREGIVER ON WAYS TO REDUCE FALL RISK FACTORS AND ESTABLISH HOME EXERCISE PROGRAM TO MINIMIZE FALL RISK. MAY TEACH THE PATIENT FLOOR RECOVERY WHEN CLINICALLY APPROPRIATE [code = PT/COMMERCIAL INSURANCE UNDERWRITER TO IDENTIFY FALL RISK FACTORS; EDUCATE THE PATIENT/CAREGIVER ON WAYS TO REDUCE FALL RISK FACTORS AND ESTABLISH HOME EXERCISE PROGRAM TO MINIMIZE FALL RISK. MAY TEACH THE PATIENT FLOOR RECOVERY WHEN CLINICALLY APPROPRIATE] Future Scheduled Test PT / COMMERCIAL INSURANCE UNDERWRITER T O EDUCATE ON HYPERTENSION SELF-MANAGEMENT [code = PT / COMMERCIAL INSURANCE UNDERWRITER TO EDUCATE ON HYPERTENSION SELF-MANAGEMENT] Future Scheduled Test PT / COMMERCIAL INSURANCE UNDERWRITER T O EDUCATE ON HEART FAILURE SELF-MANAGEMENT [code = PT / COMMERCIAL INSURANCE UNDERWRITER TO EDUCATE ON HEART FAILURE SELF-MANAGEMENT] Future Scheduled Test PT TO ASSE SS / COMMERCIAL INSURANCE UNDERWRITER TO MONITOR FOR HEART FAILURE EXACERBATION AND RECORD PATIENT REPORTED WEIGHT, AND NOTIFY THE PHYSICIAN AND/OR THE RN CLINICAL ETIQUETTE TEACHER FOR PHYSICIAN NOTIFICATION OF HF EXACERBATION (2LB WEIGHT GAIN IN 1 DAY, 5LBS IN A WEEK OR 5 LBS OVER BASELINE; INCREASED SOB, EDEMA, NEEDING MORE PILLOWS AT NIGHT, CRACKLES IN BASIS OF THE LUNGS OR PMI SHIFT) [code = PT TO ASSESS / COMMERCIAL INSURANCE UNDERWRITER TO MONITOR FOR HEART FAILURE EXACERBATION AND RECORD PATIENT REPORTED WEIGHT, AND NOTIFY THE PHYSICIAN AND/OR THE RN CLINICAL ETIQUETTE TEACHER FOR PHYSICIAN NOTIFICATION OF HF EXACERBATION (2LB WEIGHT GAIN IN 1 DAY, 5LBS IN A WEEK OR 5 LBS OVER BASELINE; INCREASED SOB, EDEMA, NEEDING MORE PILLOWS AT NIGHT, CRACKLES IN BASIS OF THE LUNGS OR PMI SHIFT)] Future Scheduled Test AGENCY MAY PERFORM A RESUMPTION OF CARE VISIT FOLLOWING ANY HOSPITAL ADMISSION. OT TO EVALUATE, OBSERVE / ASSESS, AND MONITOR, PROJECT DEVELOPMENT MANAGER TO OBSERVE AND MONITOR, PROVIDE SKILLED THERAPEUTIC INTERVENTION, ACTIVITY, EDUCATION, AND TRAINING TO ADDRESS SAFETY AND INDEPENDENCE OF ADLS AND FUNCTIONAL TRANSFERS IN HOME ENVRIONMENT. BATHING/SHOWERING (OT/PROJECT DEVELOPMENT MANAGER) ACTIVITIES OF DAILY LIVING (OT/ARIN) TOILET TRANSFER (OT/ARIN) BATH/SHOWER TRANSFER (OT/PROJECT DEVELOPMENT MANAGER) THERAPEUTIC EXERCISE (OT/PROJECT DEVELOPMENT MANAGER) OT / ARIN TO EDUCATE ON DIABETES SELF- MANAGEMENT OT/PROJECT DEVELOPMENT MANAGER TO MONITOR AND EDUCATE ON OXYGEN SATURATION DURING ADLS/IADLS, NOTIFY PHYSICIAN AND/OR THE RN CLINICAL ETIQUETTE TEACHER FOR PHYSICIAN NOTIFICATION AND IF O2 SATS BELOW 90% AFTER 10 MIN OF REST. OT/ARIN MAY EDUCATE ON PAIN MANAGEMENT CLINICALLY INDICATED, INCLUDING NON-PHARMACOLOGICAL PAIN REDUCTION TECHNIQUES OT / ARIN TO IDENTIFY FALL RISK FACTORS; EDUCATE THE PATIENT/CAREGIVER ON WAYS TO REDUCE FALL RISK FACTORS AND ESTABLISH HOME EXERCISE PROGRAM TO MINIMIZE FALL RISK. MAY TEACH THE PATIENT FLOOR RECOVERY WHEN CLINICALLY APPROPRIATE. OT/PROJECT DEVELOPMENT MANAGER TO EDUCATE ON HEART FAILURE SELF-MANAGEMENT OT/PROJECT DEVELOPMENT MANAGER TO EDUCATE ON HYPERTENSION SELF-MANAGEMENT OT / PROJECT DEVELOPMENT MANAGER TO EDUCATE ON PARKINSONS SELF MANAGEMENT [code = AGENCY MAY PERFORM A RESUMPTION OF CARE VISIT FOLLOWING ANY HOSPITAL ADMISSION. OT TO EVALUATE, OBSERVE / ASSESS, AND MONITOR, PROJECT DEVELOPMENT MANAGER TO OBSERVE AND MONITOR, PROVIDE SKILLED THERAPEUTIC INTERVENTION, ACTIVITY, EDUCATION, AND TRAINING TO ADDRESS SAFETY AND INDEPENDENCE OF ADLS AND FUNCTIONAL TRANSFERS IN HOME ENVRIONMENT. BATHING/SHOWERING (OT/ARIN) ACTIVITIES OF DAILY LIVING (OT/PROJECT DEVELOPMENT MANAGER) TOILET TRANSFER (OT/PROJECT DEVELOPMENT MANAGER) BATH/SHOWER TRANSFER (OT/ARIN) THERAPEUTIC EXERCISE (OT/ARIN) OT / ARIN TO EDUCATE ON DIABETES SELF- MANAGEMENT OT/PROJECT DEVELOPMENT MANAGER TO MONITOR AND EDUCATE ON OXYGEN SATURATION DURING ADLS/IADLS, NOTIFY PHYSICIAN AND/OR THE RN CLINICAL ETIQUETTE TEACHER FOR PHYSICIAN NOTIFICATION AND IF O2 SATS BELOW 90% AFTER 10 MIN OF REST. OT/ARIN MAY EDUCATE ON PAIN MANAGEMENT CLINICALLY INDICATED, INCLUDING NON-PHARMACOLOGICAL PAIN REDUCTION TECHNIQUES OT / ARIN TO IDENTIFY FALL RISK FACTORS; EDUCATE THE PATIENT/CAREGIVER ON WAYS TO REDUCE FALL RISK FACTORS AND ESTABLISH HOME EXERCISE PROGRAM TO MINIMIZE FALL RISK. MAY TEACH THE PATIENT FLOOR RECOVERY WHEN CLINICALLY APPROPRIATE. OT/PROJECT DEVELOPMENT MANAGER TO EDUCATE ON HEART FAILURE SELF-MANAGEMENT OT/ARIN TO EDUCATE ON HYPERTENSION SELF-MANAGEMENT OT / PROJECT DEVELOPMENT MANAGER TO EDUCATE ON PARKINSONS SELF MANAGEMENT] [...] End Date/Time Encounter Type Admission Type Attending [facility] [place] Care Facility Care Department Encounter ID Discharge Date Discharge Status Discharge Condition Discharge Reason Percent Goals Met 2025-04-19 00:00:00 2025-06-17 00:00:00 Outpatient ASHOK CASTELLANOS [facility] [id number]
--- OUTSIDE RECORDS SUMMARY | 2025-05-13 17:15 | XMS_ITS | Encounter Summary ---
Author Organization [facility] Healthcare Address [address] [place] [address] Care Team Providers Care Registered Nurse Cardiac Name Role Phone Fede Mills Primary Care Provider Lynda Silvestre MD Unavailable [phone] Victor Manuel Real MD Unavailable [phone] Nazario Osman DPM Unavailable [phone] Concha Prakash RN Unavailable [phone] Concha Prakash RN Unavailable [phone] Reason for Visit * Reason Onset Date Comments Medical Question/Miscellaneous 04/20/2025 Encounter Details Date Type Department Care Team (Late st Contact Info) Description 04/20/2025 Telephone [facility] Medical Group Primary Care at [address] [place] [address] Fede Mills PA [address] [place] [address] [address] [place] [address] Medical Question/Miscellaneous Social History Tobacco Use Types Packs/Day Years Used Date Smoking Tobacco: Never Smokeless Tobacco: Never Alcohol Use Standard Drinks/Week Comments No 0 (1 standard drink = 0.6 oz pur e alcohol) [facility] Utilities Answer Date Recorded In the past 12 months has th e electric, gas, oil, or water Associated Material Processing threatened to shut off services in your home? No 04/13/2025 Social Connection and Isolation Panel [NHANES] A nswer Date Recorded In a typical week, how many times do you talk on the phone with family, friends, or neighbors? Twice a week 04/13/2025 How often do you get together with friends or re latives? Twice a week 04/13/2025 How often do you attend orthodoxy or restoration serv ices? Never 04/13/2025 Do you belong to any clubs o r organizations such as orthodoxy groups, unions, fraternal or athletic groups, or [...] any time in the past 12 m [facility], were you homeless or living in a group home (including now)? 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 They can change the parameter to let me know if it goes below 50 * Telephone Encounter - Daniela Michel MA - 04/20/2025 8:30 AM CDT Medical Question/Miscellaneous Caller???s Concern: Sara from [facility] saw the patient this morning and [...] on filedocumented in this encounter Care Teams Registered Nurse Cardiac Relationship Specialty Start Date End Date Fede Mills PA [address] [facility] [address] [place] [address] PCP - General Internal Medicine 07/04/22 Lynda Silvestre MD [address] [place] [address] Referring Physician Ophthalmology 11/13/22 Victor Manuel Real MD [address] [place] [address] [address] [place] [address] Consulting Physician Neurology 01/18/24 Nazario Osman DPM [address] [place] [address] Consulting Physician Orthotics 01/18/24 Concha Prakash RN [address] [place] [address] [address] [place] [address] [employer]ire Fabric Impregnating Range Tender 04/13/25 04/29/25 Concha Prakash RN [address] [place] [address] [address] [place] [address] [employer]ire [employer] Impregnating Range Tender 05/06/25 documented as of this encounter
--- OUTSIDE RECORDS SUMMARY | 2025-05-13 17:15 | XMS_ITS | Encounter Summary ---
Author Organization [facility] Healthcare Address [address] [place] [address] Care Team Providers Care Dormitory Maid Name Role Phone Fede Mills Primary Care Provider Lynda Silvestre MD Unavailable [phone] Victor Manuel Real MD Unavailable [phone] Nazario Osman DPM Unavailable [phone] Concha Prakash RN Unavailable [phone] Encounter Details Date Type Department Care Team (Late st Contact Info) Description 05/12/2025 Telephone [facility] Prescription Clerk Lenses at [address] [address] Omar Briceño NP [address] [place] [address] [address] [place] [address] Social History Tobacco Use Types Packs/Day Years Used Date Smoking Tobacco: Never Smokeless Tobacco: Never Alcohol Use Standard Drinks/Week Comments No 0 (1 standard drink = 0.6 oz pur e alcohol) [facility] Utilities Answer Date Recorded In the past [...] often do you attend chur ch or jehovah's witness services? Never 05/07/2025 Do you belong to any clubs o r organizations such as hindu groups, unions, fraternal or athletic groups, or [...] place to sleep or slept in a nursing home (including now)? No 11/23/2023 Housing Stability [...] any time in the past 12 m [facility], were you homeless or living in a nursing home (including now)? 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 * Telephone Encounter - Omar Briceño NP - 05/12/2025 11:10 AM CDT No reschedule for six weeks * Telephone Encounter - Rosanna Jin MA - 05/12/2025 9:21 AM CDT Ludmila from [facility] called and stated the is wondering if patient you still want to see her since she was just in the hospital on - 05/09/25. Ludmila Jorge [phone] Call back. documented in this encounter Plan of Treatment Not on file documented as of this encounter Visit Diagnoses Not on filedocumented in this encounter Care Teams Dormitory Maid Relationship Specialty Start Date End Date Fede Mills PA [address] [facility] [address] [place] [address] PCP - General Internal Medicine 07/04/22 Lynda Silvestre MD [address] [place] [address] Referring Physician Ophthalmology 11/13/22 Victor Manuel Real MD [address] [place] [address] [address] [place] [address] Consulting Physician Neurology 01/18/24 Nazario Osman DPM [address] [place] [address] Consulting Physician Orthotics 01/18/24 Concha Prakash, LAMINE [address] [place] [address] [address] [place] [address] Caterer'S Aide 05/06/25 documented as of this encounter
--- OUTSIDE RECORDS SUMMARY | 2025-05-13 17:15 | XMS_ITS ---
Author Name Auto Generated, Auto Generated Organization [facility] Address [address] [place] [address] Phone [phone] Care Team Providers Care Cellophane Bath Mixer Name Role Phone Meredith Nath Unavailable MichaelSarah torres Unavailable Functional Status No Results Mental Status No Results Allergies and Intolerances Name Onset Date Reaction Severity Sulfa (Sulfonamide Antibiotics) (Allergy) Sun 00:45:00 EST 2023 penicillin (Allergy) SunNov 26 00:45:00 EST codeine (Allergy) SunNov 26 00:45:00 EST 2023 Encounters Program Name Primary Diagnosis Admission Date/Time Dis charge Date/Time [facility] [employer] SunAug 26 12:20:00 EDT [...] EDT 2023Sep 26 01:00:00 EST 2023 artificial tears(cuxwbub-ewyrdvbo-uj ycern) 0.1 %-0.3 %-0.2 % eye drops [...] 25:00:00 2023Dec 16 01:00:00 EST 2023 artificial tears(iqxjrko-yomladpl-ml ycern) 0.1 %-0.3 %-0.2 % eye drops [...] 2023 * End Date: * Text: * [employer] customer [employer] (current) use of aspirin* Code: * Start [...] 2023 * End Date: * Text: * [id number] Nicolle receives a therapeutic diet. (12)* Code: * Start Date: SunSep 03 00:00:00 EDT 2023 * End Date: * Text: [id number] Nicolle receives a therapeutic diet. (12) * Crissy Valverde's wishes will be followed (Advanced Directive/Code Status).* Code: * Start Date: SunSep 03 00:00:00 EDT 2023 * End Date: * Text: Crissy Valverde's wishes will be followed (Advanced Directive/Code Status). * Crissy Valverde will be involved in goal development to the best of his or her ability.* Code: * Start Date: SunSep 03::00 EDT 2023 * End Date: * Text: Crissy Valverde will be involved in goal development to the best of his or her ability. * Crissy Valverde has family/friends who are supportive.* Code: * Start Date: SunSep 03 00:00:00 EDT 2023 * End Date: * Text: Crissy Valverde has family/friends who are supportive. * Crissy Alys mobility level is different than prior level due to current medical condition.* Code: * Start Date: SunSep 03 00:00:00 EDT 2023 * End Date: * Text: Crissy Alys mobility level is different than prior level due to current medical condition. * Crissy Valverde has a diagnosis of dementia.* Code: * Start Date: SunSep 03 00:00:00 EDT 2023 * End Date: * Text: Crissy Valevrde has a diagnosis of dementia. * [facility]- [facility] will be involved in discharge planning.* Code: * Start Date: SunSep 03 00:00:00 EDT 2023 * End Date: * Text: [facility]- Nicolle will be involved in discharge planning. 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 Resolved Concerns * Problem Other headache syndrome* [...] 64.00 /min SunSep 26 08:50 :11 2023 Body temperature 97.30 [degF] SunSep 26 08:5 0:11 2023 Respiratory rate 18.00 /min SunSep 26 08:5 0:11 2023 Systolic Blood Pressure 132.00 mm[Hg] SunSep 25 22:14:49 2023 Diastolic Blood Pressure 58.00 mm[Hg] SunSep 25 22:14:49 2023 Systolic Blood Pressure 132.00 mm[Hg] SunSep 25 22:14:49 2023 Diastolic Blood Pressure 58.00 mm[Hg] SunSep 25 22:14:49 2023 Pulse Oximetry 96.00 % SunSep 25 22:14 :49 2023 Heart Rate 62.00 /min SunSep 25 22:14 :49 EST 2023 Body temperature 98.20 [degF] SunSep 25 22:1 4:49 EST 2023 Respiratory rate 18.00 /min SunSep 25 22:1 4:49 2023 Body weight 142.20 [lb_av] SunSep 25 15:48 :25 2023 Systolic Blood Pressure 137.00 mm[Hg] SunSep 25 10:23:34 2023 Diastolic Blood Pressure 61.00 mm[Hg] SunSep 25 10:23:34 EST 2023 Pulse Oximetry 96.00 % SunSep 25 10:23 :34 EST 2023 Heart Rate 58.00 /min SunSep 25 10:23 :34 EST 2023 Body temperature 98.20 [degF] SunSep 25 10:2 3:34 EST 2023 Respiratory rate 18.00 /min SunSep 25 10:2 3:34 EST 2023 Systolic [...] 54.00 /min SunSep 24 18:02 :30 2023 Body temperature 98.20 [degF] SunSep 24 18:0 2:30 2023 Respiratory rate 18.00 /min SunSep 24 18:0 2:30 2023 Body weight [...] /min SunSep 24 09:32 :47 EST 2023 Body temperature 97.80 [degF] SunSep 24 09:3 2:47 EST 2023 Respiratory rate 18.00 /min SunSep 24 09:3 2:47 EST 2023 Systolic Blood Pressure 130.00 mm[Hg] SunSep 24 00:25:07 EST 2023 Diastolic Blood Pressure 58.00 mm[Hg] SunSep 24 00:25:07 EST 2023 Pulse Oximetry 97.00 % SunSep 24 00:25 :07 EST 2023 Heart Rate 60.00 /min SunSep 24 00:25 :07 EST 2023 Body temperature 97.90 [degF] SunSep 24 00:2 5:07 EST 2023 Respiratory rate 18.00 /min SunSep 24 00:2 5:07 EST 2023 Systolic [...] /min SunSep 23 09:12 :37 EST 2023 Body temperature 98.20 [degF] SunSep 23 09:1 2:37 EST 2023 Respiratory rate 18.00 /min SunSep 23 09:1 2:37 EST 2023 Systolic Blood Pressure 121.00 mm[Hg] SunSep 22 22:48:19 EST 2023 Diastolic Blood Pressure 57.00 mm[Hg] SunSep 22 22:48:19 EST 2023 Pulse Oximetry 95.00 % SunSep 22 22:48 :19 EST 2023 Heart Rate 60.00 /min SunSep 22 22:48 :19 EST 2023 Body temperature 98.50 [degF] SunSep 22 22:4 8:19 EST 2023 Respiratory rate 18.00 /min SunSep 22 22:4 8:19 EST 2023 Systolic [...] /min SunSep 22 10:09 :00 EST 2023 Body temperature 98.20 [degF] SunSep 22 10:0 9:00 EST 2023 Respiratory rate 18.00 /min SunSep 22 10:0 9:00 EST 2023 Systolic Blood Pressure 128.00 mm[Hg] SunSep 21 23:45:20 EST 2023 Diastolic Blood Pressure 69.00 mm[Hg] SunSep 21 23:45:20 EST 2023 Pulse Oximetry 95.00 % SunSep 21 23:45 :20 EST 2023 Heart Rate 72.00 /min SunSep 21 23:45 :20 EST 2023 Body temperature 98.40 [degF] SunSep 21 23:4 5:20 EST 2023 Respiratory rate 20.00 /min SunSep 21 23:4 5:20 EST 2023 Systolic [...] /min SunSep 21 11:38 :19 EST 2023 Body temperature 98.60 [degF] SunSep 21 11:3 8:19 EST 2023 Respiratory rate 18.00 /min SunSep 21 11:3 8:19 EST 2023 Systolic [...] /min SunSep 21 00:34 :04 EST 2023 Body temperature 98.40 [degF] SunSep 21 00:3 4:04 EST 2023 Respiratory rate 14.00 /min SunSep 21 00:3 4:04 EST 2023 Systolic [...] /min SunSep 20 08:33 :52 EST 2023 Body temperature 98.00 [degF] SunSep 20 08:3 3:52 EST 2023 Respiratory rate 18.00 /min SunSep 20 08:3 3:52 EST 2023 Systolic Blood Pressure 140.00 mm[Hg] SunSep 20 00:55:28 EST 2023 Diastolic Blood Pressure 63.00 mm[Hg] SunSep 20 00:55:28 EST 2023 Pulse Oximetry 94.00 % SunSep 20 00:55 :28 EST 2023 Heart Rate 53.00 /min SunSep 20 00:55 :28 EST 2023 Body temperature 98.00 [degF] SunSep 20 00:5 5:28 EST 2023 Respiratory rate 14.00 /min SunSep 20 00:5 5:28 EST 2023 Systolic [...] Rate 55.00 /min SunSep 19 10:17 :18 2023 Body temperature 98.20 [degF] SunSep 19 10:1 7:18 2023 Respiratory rate 18.00 /min SunSep 19 10:1 7:18 EST 2023 Systolic [...] 63.00 /min SunSep 18 22:06 :05 2023 Body temperature 98.30 [degF] SunSep 18 22:0 6:05 2023 Respiratory rate 18.00 /min SunSep 18 22:0 6:05 2023 Systolic Blood [...] 68.00 /min SunSep 18 10:11 :22 2023 Body temperature 98.20 [degF] SunSep 18 10:1 1:22 2023 Respiratory rate 18.00 /min SunSep 18 10:1 1:22 2023 Systolic Blood [...] Rate 58.00 /min SunSep 17 22:37 :04 2023 Body temperature 98.20 [degF] SunSep 17 22:3 7:04 EST 2023 Respiratory rate 18.00 /min SunSep 17 22:3 7:04 EST 2023 Systolic Blood Pressure 116.00 mm[Hg] SunSep 17 20:16:05 EST 2023 Diastolic Blood Pressure 56.00 mm[Hg] SunSep 17 20:16:05 EST 2023 Body weight 146.00 [lb_av] SunSep 17 12:55 [...] 62.00 /min SunSep 17 08:26 :23 EST 2023 Body temperature 98.30 [degF] SunSep 17 08:2 6:23 EST 2023 Respiratory rate 18.00 /min SunSep 17 08:2 6:23 EST 2023 Systolic Blood Pressure 136.00 mm[Hg] SunSep 16 21:53:11 EST 2023 Diastolic Blood Pressure 55.00 mm[Hg] SunSep 16 21:53:11 2023 Pulse Oximetry 97.00 % SunSep 16 21:53 :11 EST 2023 Heart Rate 55.00 /min SunSep 16 21:53 :11 EST 2023 Body temperature 98.20 [degF] SunSep 16 21:5 3:11 EST 2023 Respiratory rate 18.00 /min SunSep 16 21:5 3:11 EST 2023 Systolic Blood Pressure 135.00 mm[Hg] SunSep 16 20:11:55 EST 2023 Diastolic Blood Pressure 55.00 mm[Hg] SunSep 16 20:11:55 EST 4 Systolic Blood Pressure 112.00 mm[Hg] SunSep 16 10:20:43 EST 2023 Diastolic Blood Pressure 54.00 mm[Hg] SunSep 16 10:20:43 EST 2023 Pulse Oximetry 98.00 % SunSep 16 10:20 :43 EST 2023 Heart Rate 48.00 /min SunSep 16 10:20 :43 EST 4 Body temperature 98.20 [degF] SunSep 16 10:2 0:43 EST 2023 Respiratory rate 18.00 /min SunSep 16 10:2 0:43 EST 4 Systolic Blood Pressure 112.00 mm[Hg] SunSep 16 10:20:07 EST 2023 Diastolic Blood Pressure 54.00 mm[Hg] SunSep 16 10:20:07 EST 4 Systolic Blood Pressure 148.00 mm[Hg] SunSep 16 01:26:58 EST 2023 Diastolic Blood Pressure 55.00 mm[Hg] SunSep 16 01:26:58 EST 2023 Pulse Oximetry 96.00 % SunSep 16 01:26 :58 EST 2023 Heart Rate 85.00 /min SunSep 16 01:26 :58 EST 4 Body temperature 97.80 [degF] SunSep 16 01:2 6:58 EST 2023 Respiratory rate 18.00 /min SunSep 16 01:2 6:58 EST 4 Systolic Blood Pressure 134.00 mm[Hg] SunSep 15 23:09:11 EST 4 Diastolic Blood Pressure 65.00 mm[Hg] SunSep 15 23:09:11 EST 4 Systolic Blood Pressure 134.00 mm[Hg] [...] /min SunSep 15 09:53 :19 EST 4 Body temperature 97.30 [degF] SunSep 15 09:5 3:19 EST 4 Respiratory rate 17.00 /min SunSep 15 09:5 3:19 EST 4 Systolic [...] 64.00 /min SunSep 14 23:20 :56 2023 Body temperature 98.30 [degF] SunSep 14 23:2 0:56 2023 Respiratory rate 18.00 /min SunSep 14 23:2 0:56 2023 Systolic Blood [...] /min SunSep 14 08:53 :28 EST 2023 Body temperature 97.30 [degF] SunSep 14 08:5 3:28 EST 2023 Respiratory rate 17.00 /min SunSep 14 08:5 3:28 EST 2023 Systolic Blood Pressure 146.00 mm[Hg] SunSep 13 22:42:41 EST 2023 Diastolic Blood Pressure 54.00 mm[Hg] SunSep 13 22:42:41 EST 2023 Pulse Oximetry 97.00 % SunSep 13 22:42 :41 EST 2023 Heart Rate 54.00 /min SunSep 13 22:42 :41 EST 2023 Body temperature 98.40 [degF] SunSep 13 22:4 2:41 EST 2023 Respiratory rate 18.00 /min SunSep 13 22:4 2:41 EST 2023 Systolic [...] /min SunSep 13 08:56 :15 EST 2023 Body temperature 98.40 [degF] SunSep 13 08:5 6:15 EST 2023 Respiratory rate 18.00 /min SunSep 13 08:5 6:15 EST 4 Systolic Blood Pressure 157.00 mm[Hg] SunSep 13 00:37:39 EST 2023 Diastolic Blood Pressure 67.00 mm[Hg] SunSep 13 00:37:39 EST 2023 Pulse Oximetry 98.00 % SunSep 13 00:37 :39 EST 2023 Heart Rate 57.00 /min SunSep 13 00:37 :39 EST 2023 Body temperature 98.20 [degF] SunSep 13 00:3 7:39 EST 2023 Respiratory rate 18.00 /min SunSep 13 00:3 7:39 EST 2023 Systolic [...] /min SunSep 12 15:43 :12 EST 2023 Body temperature 97.30 [degF] SunSep 12 15:4 3:12 EST 2023 Respiratory rate 18.00 /min SunSep 12 15:4 3:12 EST 2023 Systolic [...] Rate 58.00 /min SunSep 11 22:57 :24 2023 Body temperature 98.40 [degF] SunSep 11 22:5 7:24 2023 Respiratory rate 18.00 /min SunSep 11 22:5 7:24 2023 Systolic Blood Pressure 152.00 mm[Hg] SunSep [...] 58.00 /min SunSep 11 10:02 :41 2023 Body temperature 98.70 [degF] SunSep 11 10:0 2:41 2023 Respiratory rate 18.00 /min SunSep 11 10:0 2:41 EST 2023 Systolic [...] /min SunSep 11 01:27 :57 EST 2023 Body temperature 98.20 [degF] SunSep 11 01:2 7:57 EST 2023 Respiratory rate 18.00 /min SunSep 11 01:2 7:57 EST 2023 Systolic [...] Pressure 50.00 mm[Hg] SunSep 10 09:43:13 EST 202 Systolic Blood Pressure 108.00 mm[Hg] SunSep 10 [...] /min SunSep 10 09:43 :13 EST 2023 Body temperature 97.80 [degF] SunSep 10 09:4 3:13 EST 2023 Respiratory rate 18.00 /min SunSep 10 09:4 3:13 EST 2023 Systolic Blood Pressure 122.00 mm[Hg] SunSep 10 02:26:28 EST 2023 Diastolic Blood Pressure 57.00 mm[Hg] SunSep 10 02:26:28 EST 2023 Pulse Oximetry 97.00 % SunSep 10 02:26 :28 EST 2023 Heart Rate 84.00 /min SunSep 10 02:26 :28 EST 2023 Body temperature 98.20 [degF] SunSep 10 02:2 6:28 EST 2023 Respiratory rate 18.00 /min SunSep 10 02:2 6:28 EST 2023 Systolic [...] /min SunSep 09 10:32 :00 EST 2023 Body temperature 98.20 [degF] SunSep 09 10:3 2:00 EST 2023 Respiratory rate 18.00 /min SunSep 09 10:3 2:00 EST 2023 Systolic [...] /min SunSep 09 00:26 :10 EST 2023 Body temperature 98.30 [degF] SunSep 09 00:2 6:10 EST 2023 Respiratory rate 16.00 /min SunSep 09 00:2 6:10 EST 2023 Systolic [...] /min SunSep 08 09:50 :01 EST 2023 Body temperature 98.20 [degF] SunSep 08 09:5 0:01 EST 2023 Respiratory rate 18.00 /min SunSep 08 09:5 0:01 EST 2023 Systolic Blood Pressure 116.00 mm[Hg] SunSep 07 23:34:12 EST 2023 Diastolic Blood Pressure 54.00 mm[Hg] SunSep 07 23:34:12 EST 2023 Pulse Oximetry 98.00 % SunSep 07 23:34 :12 EST 2023 Heart Rate 50.00 /min SunSep 07 23:34 :12 EST 2023 Body temperature 98.30 [degF] SunSep 07 23:3 4:12 EST 2023 Respiratory rate 18.00 /min SunSep 07 23:3 4:12 EST 2023 Systolic [...] /min SunSep 07 14:11 :39 EST 2023 Body temperature 98.50 [degF] SunSep 07 14:1 1:39 EST 2023 Respiratory rate 18.00 /min SunSep 07 14:1 1:39 EST 2023 Systolic [...] :22 EDT 2023 Heart Rate 58.00 /min [place] Sep 07 00:14 :22 EDT 2023 Body temperature 98.30 [degF] SunSep 07 00:1 4:22 EDT 2023 Respiratory rate 18.00 /min [place] Sep 07 00:1 4:22 EDT 2023 Systolic Blood Pressure 117.00 mm[Hg] [facility] Sep 06 21:31:20 EDT 2023 Diastolic Blood Pressure 51.00 mm[Hg] SunSep 06 21:31:20 EDT 4 Systolic Blood Pressure 117.00 mm[Hg] [facility] Sep 06 21:31:20 EDT 2023 Diastolic Blood Pressure 51.00 mm[Hg] SunSep 06 21:31:20 EDT 2023 Heart Rate 58.00 /min SunSep 06 21:31 :20 EDT 4 Systolic Blood Pressure 146.00 mm[Hg] [facility] Sep 06 09:08:08 EDT 4 Diastolic Blood Pressure 62.00 mm[Hg] SunSep 06 09:08:08 EDT 2024 Systolic Blood Pressure 146.00 mm[Hg] SunSep 06 09:08:08 EDT 4 Diastolic Blood Pressure 62.00 mm[Hg] SunSep 06 09:08:08 EDT 4 Systolic Blood Pressure 146.00 mm[Hg] SunSep 06 09:08:08 EDT 4 Diastolic Blood Pressure 62.00 mm[Hg] SunSep 06 09:08:08 EDT 4 Systolic Blood Pressure 146.00 mm[Hg] SunSep 06 09:08:08 EDT 4 Diastolic Blood Pressure 62.00 mm[Hg] [facility] Sep 06 09:08:08 EDT 2023 Pulse Oximetry 98.00 % SunSep 06 09:08 :08 EDT 2023 Heart Rate 57.00 /min SunSep 06 09:08 :08 EDT 2023 Heart Rate 57.00 /min SunSep 06 09:08 :08 EDT 2023 Body temperature 98.30 [degF] SunSep 06 09:0 8:08 EDT 2023 Respiratory rate 18.00 /min SunSep 06 09:0 8:08 EDT 2023 Systolic Blood Pressure 161.00 mm[Hg] SunSep 05 23:50:09 EDT 2023 Diastolic Blood Pressure 68.00 mm[Hg] SunSep 05 23:50:09 EDT 2023 Pulse Oximetry 99.00 % SunSep 05 23:50 :09 EDT 2023 Heart Rate 54.00 /min SunSep 05 23:50 :09 EDT 2023 Body temperature 98.30 [degF] SunSep 05 23:5 0:09 EDT 2023 Respiratory rate 18.00 /min SunSep 05 23:5 0:09 EDT 2023 Systolic [...] /min SunSep 05 10:19 :01 EDT 2023 Body temperature 98.30 [degF] SunSep 05 10:1 9:01 EDT 2023 Respiratory rate 18.00 /min SunSep 05 10:1 9:01 EDT 2023 Systolic [...] /min SunSep 05 00:28 :22 EDT 2023 Body temperature 97.20 [degF] SunSep 05 00:2 8:22 EDT 2023 Respiratory rate 16.00 /min SunSep 05 00:2 8:22 EDT 2023 Systolic [...] /min SunSep 04 10:12 :52 EDT 2023 Body temperature 98.20 [degF] [place] 31 10:1 2:52 EDT 2023 Respiratory rate 18.00 /min [place] 31 10:1 2:52 EDT 2023 Systolic [...] Wed Oct 30 22:44 :30 EDT 2023 Body temperature 98.20 [degF] Wed Oct 30 22:4 4:30 EDT 2023 Respiratory rate 18.00 /min Wed [...] Wed Oct 30 13:14 :09 EDT 2023 Body temperature 98.30 [degF] Sun 30 13:1 4:09 EDT 2023 Respiratory rate 18.00 /min Sun 30 13:1 4:09 EDT 2023 Systolic Blood Pressure 131.00 mm[Hg] Sun Oct 30 09:46:38 EDT 2023 Diastolic Blood Pressure 58.00 mm[Hg] Sun 30 09:46:38 EDT 2023 Heart Rate 60.00 /min Sun Oct 30 09:46 :38 EDT 2023 Systolic Blood Pressure 131.00 mm[Hg] Sun Oct 30 09:25:27 EDT 2023 Diastolic Blood Pressure 58.00 mm[Hg] Sun Oct 30 09:25:27 EDT 2023 Systolic Blood Pressure 131.00 mm[Hg] Sun Oct 30 :25:27 EDT 2023 Diastolic Blood Pressure 58.00 mm[Hg] Sun 30 :25: EDT 2023 Systolic Blood Pressure 134.00 mm[Hg] Sun 30 00:28:04 EDT 2023 Diastolic Blood Pressure 66.00 mm[Hg] SunSep 03 00:28:04 EDT 2023 Pulse Oximetry 96.00 % SunSep 03 00:28 :04 EDT 2023 Heart Rate 58.00 /min SunSep 03 00:28 :04 EDT 2023 Body temperature 98.20 [degF] SunSep 03 00:2 8:04 EDT 2023 Respiratory rate 18.00 /min SunSep 03 00:2 8:04 EDT 2023 Systolic Blood Pressure 134.00 mm[Hg] Sun Oct 29 21:32:55 EDT 2023 Diastolic Blood [...] EDT 2023 Systolic Blood Pressure 128.00 mm[Hg] [facility] Oct 29 09:35:24 EDT 2023 Diastolic Blood Pressure 59.00 mm[Hg] [facility] Oct 29 09:35:24 EDT 2023 Systolic Blood Pressure 128.00 mm[Hg] [facility] Oct 29 09:35:24 EDT 2023 Diastolic Blood Pressure 59.00 mm[Hg] [facility] Oct 29 09:35:24 EDT 2023 Heart Rate 66.00 /min [facility] Oct 29 09:35 :24 EDT 2023 Systolic Blood Pressure 128.00 mm[Hg] [facility] Oct 29 08:38:54 EDT 2023 Diastolic Blood Pressure 59.00 mm[Hg] [facility] Oct 29 08:38:54 EDT 2023 Pulse Oximetry 95.00 % [facility] Oct 08:38 :54 EDT 2023 Heart Rate 66.00 /min [facility] Oct 08:38 :54 EDT 2023 Body temperature 98.40 [degF] [facility] Oct 08:3 8:54 EDT 4 Respiratory rate 18.00 /min [facility] Oct 08:3 8:54 EDT 4 Systolic Blood Pressure 120.00 mm[Hg] [facility] Oct 28 23:58:41 EDT 2023 Diastolic Blood Pressure 54.00 mm[Hg] [facility] Oct 28 23:58:41 EDT 2023 Pulse Oximetry 98.00 % SunSep 01 23:58 :41 EDT 2023 Heart Rate 56.00 /min Sun 28 23:58 :41 EDT 2023 Body temperature 98.20 [degF] Sun Oct 28 23:5 8:41 EDT 2023 Respiratory rate 18.00 /min Sun Oct 28 23:5 8:41 EDT 2023 Systolic Blood Pressure 120.00 mm[Hg] Sun Oct 28 21:07:35 EDT 2023 Diastolic Blood Pressure 54.00 mm[Hg] Sun Oct 28 21:07:35 EDT 2023 Systolic Blood Pressure 120.00 mm[Hg] Sun Oct 28 21:07:35 EDT 2023 Diastolic Blood Pressure 54.00 mm[Hg] Sun Oct 28 21:07:35 EDT 2023 Heart Rate 56.00 /min Sun Oct 28 21:07 :35 EDT 2023 Body weight 146.20 [lb_av] Sun Oct 28 11:37 :43 EDT 2023 Systolic [...] Mon Oct 28 09:04 :38 EDT 4 Body temperature 98.20 [degF] Mon Oct 28 09:0 4:38 EDT 4 Respiratory rate 18.00 /min Mon Oct 28 09:0 4:38 EDT 4 Systolic Blood Pressure 138.00 mm[Hg] Sun Oct 27 22:23:36 EDT 2023 Diastolic Blood Pressure 63.00 mm[Hg] Sun Oct 27 22:23:36 EDT 2023 Pulse Oximetry 97.00 % Sun Oct 27 22:23 :36 EDT 2023 Heart Rate 57.00 /min Sun Oct 27 22:23 :36 EDT 2023 Body temperature 98.30 [degF] Sun Oct 27 22:2 3:36 EDT 4 Respiratory rate 18.00 /min Sun Oct 27 22:2 3:36 EDT 4 Systolic Blood Pressure 138.00 mm[Hg] Sun Oct 27 20:41:38 EDT 4 Diastolic Blood Pressure 63.00 mm[Hg] Sun Oct 27 20:41:38 EDT 2023 Systolic Blood Pressure 138.00 mm[Hg] Sun Oct 27 20:41:38 EDT 4 Diastolic Blood Pressure 63.00 mm[Hg] Sun Oct [...] 2023 Heart Rate 54.00 /min Sun Oct 09:55 :22 EDT 2023 Body temperature 98.20 [degF] Sun Oct 27 09:5 5:22 EDT 2023 Respiratory rate 18.00 /min Sun Oct 27 09:5 5:22 EDT 2023 Systolic Blood Pressure 129.00 mm[Hg] Sat Oct 26 22:43:10 EDT 2023 Diastolic Blood Pressure 61.00 mm[Hg] Sat Oct 26 22:43:10 EDT 2023 Pulse Oximetry 97.00 % Sat Oct 26 22:43 :10 EDT 2023 Heart Rate 59.00 /min Sat Oct 26 22:43 :10 EDT 2023 Body temperature 98.20 [degF] Sat Oct 26 22:4 3:10 EDT 2023 Respiratory rate 18.00 /min Sat Oct 26 [...] Sat Oct 26 08:34 :38 EDT 4 Body temperature 98.20 [degF] Sat Oct 26 08:3 4:38 EDT 4 Respiratory rate 18.00 /min Sat Oct 26 08:3 4:38 EDT 4 Systolic Blood Pressure 135.00 mm[Hg] Fri Oct 25 22:55:40 EDT 4 Diastolic Blood Pressure 63.00 mm[Hg] Fri Oct 25 22:55:40 EDT 2023 Pulse Oximetry 99.00 % Fri Oct 25 22:55 :40 EDT 4 Heart Rate 64.00 /min Fri Oct 25 22:55 :40 EDT 4 Body temperature 97.80 [degF] Fri Oct 25 22:5 5:40 EDT 2023 Respiratory rate 20.00 /min Fri Oct 25 [...] Fri Oct 25 09:39 :08 EDT 2023 Body temperature 97.20 [degF] Fri Oct 25 09:3 9:08 EDT 2023 Respiratory rate 19.00 /min Fri [...] [place] Oct 24 20:35 :09 EDT 2023 Body temperature 98.50 [degF] [place] Oct 24 20:3 5:09 EDT 2023 Respiratory rate 18.00 /min [place] Oct 24 20:3 5:09 EDT 2023 Systolic Blood Pressure 136.00 mm[Hg] [place] Oct 24 10:29:40 EDT 2023 Diastolic Blood Pressure 64.00 mm[Hg] [place] Oct 24 10:29:40 EDT 2023 Pulse Oximetry 95.00 % [place] Oct 24 10:29 :40 EDT 2023 Heart Rate 55.00 /min [place] Oct 24 10:29 :40 EDT 2023 Body temperature 98.00 [degF] [place] Oct 24 10:2 9:40 EDT 2023 Respiratory rate 18.00 /min [place] [...] /min [place] Oct 24 01:49 :30 EDT 2023 Body temperature 98.30 [degF] [place] Oct 24 01:4 9:30 EDT 2023 Respiratory rate 18.00 /min [place] Oct 24 01:4 9:30 EDT 2023 Systolic Blood Pressure 118.00 mm[Hg] Wed Oct 23 21:47:02 EDT 2023 Diastolic Blood Pressure 53.00 mm[Hg] Wed Oct 23 21:47:02 EDT 2023 Systolic Blood Pressure 118.00 mm[Hg] Wed Oct 23 21:47:02 EDT 2023 Diastolic Blood Pressure 53.00 mm[Hg] Wed Oct 21:47:02 EDT 2023 Heart Rate 54.00 /min Wed Oct 21:47 :02 EDT 2023 Body weight 0.00 [lb_av] Wed Oct 23 15:09 :02 EDT 2023 Systolic Blood Pressure 144.00 mm[Hg] Wed Oct 23 09:12:52 EDT 2023 Diastolic Blood Pressure 71.00 mm[Hg] Wed Oct 23 09:12:52 EDT 2023 Heart Rate 60.00 /min Wed Oct 23 09:12 :52 EDT 2023 Systolic Blood Pressure 144.00 mm[Hg] Wed Oct 09:03:24 EDT 2023 Diastolic Blood Pressure 71.00 mm[Hg] Wed Oct 23 09:03:24 EDT 2023 Systolic Blood Pressure 144.00 mm[Hg] Wed Oct 23 09:03:24 EDT 2023 Diastolic Blood Pressure 71.00 mm[Hg] Wed Oct 09:03:24 EDT 2023 Systolic Blood Pressure 144.00 mm[Hg] Wed Oct 08:49:02 EDT 2023 Diastolic Blood Pressure 71.00 mm[Hg] Wed Aug 27 08:49:02 EDT 2023 Pulse Oximetry 95.00 % Wed Aug 27 08:49 :02 EDT 2023 Heart Rate 58.00 /min Wed Aug 23 08:49 :02 EDT 2023 Body temperature 98.30 [degF] Wed Oct 23 08:4 9:02 EDT 2023 Respiratory rate 18.00 /min Wed Aug 27 08:4 9:02 EDT 2023 Systolic Blood Pressure 135.00 mm[Hg] Wed Aug 27 00:04:34 EDT 2023 Diastolic Blood Pressure 60.00 mm[Hg] Wed Aug 27 00:04:34 EDT 2023 Pulse Oximetry 98.00 % Wed Aug 27 00:04 :34 EDT 2023 Heart Rate 60.00 /min Wed Aug 27 00:04 :34 EDT 2023 Body temperature 98.50 [degF] Wed Oct 23 00:0 4:34 EDT 2023 Respiratory rate 18.00 /min Wed [...] /min SunAug 26 14:46 :00 EDT 2023 Body temperature 98.50 [degF] SunAug 26 14:4 6:00 EDT 2023 Respiratory rate 18.00 /min SunAug [...]
[2025-05-13 18:30] VITALS: BP 162/80; PULSE 85; RESP 14; O2SAT 96
--- NOTE | 2025-05-13 18:45 | PC.NURSE ---
Family at bedside alerted this RN that they did not want to wait to x2 hours for EMS to arrive for transport. They now feel comfortable transporting pt. back to [facility] via private vehicle.
== END 2025-05-13 19:00 | disposition home or self-care (01) ==
LOC: ANHED 17:12
PROVIDERS: Emergency Provider Emergency Medicine
DX: E87.5 Hyperkalemia (principal); R51.9 Headache, unspecified; M54.2 Cervicalgia
CPT/HCPCS: 36415; 80053; 85025; 96360; 99283; A9270; J7030

== ENCOUNTER 2025-05-22 07:14 | Emergency (ER) | payer MEDICARE, SELFPAY ==
[2025-05-22] VITALS (8 sets, daily range): BP systolic 157–175; BP diastolic 58–77; PULSE 55–67; RESP 19–20; TEMP 36.2; O2SAT 98–100
--- NOTE | ~2025-05-22 | CT_ITS ---
Non-contrast Head CT History: Syncope, status post fall Technique: Axial non-contrast imaging of the brain was performed. Dose reduction technique was used on this scan by utilizing automated exposure control and iterative reconstruction technique. The dose -length product (DLP) was 605.33 mGy-cm. Findings: There is no evidence of intracranial hemorrhage, mass lesion, or acute infarct. Brain par enchyma appears normal. The ventricles and subarachnoid spaces are normal in size. The calvarium ap pears normal. The visualized paranasal sinuses and mastoid air cells are clear. Impression: No significant abnormality seen. Reviewed, dictated and finalized at location . Impression: No significant abnormality seen.
--- NOTE | ~2025-05-22 | XR_ITS ---
EXAMINATION: XR chest 1V 05/22/2025 07:55 INDICATION: Syncope PROCEDURE: AP portable chest COMPARISON: No prior studies for comparison. FINDINGS: The lungs are clear. The cardiomediastinal silhouette is within normal limits. There are no pleural effusions. There is no pneumothorax suspected. IMPRESSION: 1: NO ACUTE CARDIOPULMONARY DISEASE. Reviewed, dictated and finalized at location B.
--- NOTE | ~2025-05-22 | CT_ITS ---
Noncontrast CT scan of the cervical spine Technique: Multiple contiguous axial [address] images of the cervical spine were obtained and rec onstructed in 2D sagittal and coronal planes on the acquisition scanner. Dose reduction technique was used on this scan by utilizing automated exposure control, adjustment of the mA and/or kV according to patient size. The dose-length product (DLP) was 239.88 mGy-cm. Clinical History: Pain Findings: No fractures or dislocations. Mild degenerative disc change present in the cervical spine. Mild facet joint degenerative changes are present. There is probable mild left neural foraminal narr owing at C5-C6. No prevertebral soft tissue swelling. Impression: No fracture or subluxation of the cervical spine. Mild degenerative spondylosis. Reviewed, dictated and finalized at [facility]. Impression: No fracture or subluxation of the cervical spine. Mild degenerative spondylosis.
--- NOTE | 2025-05-22 07:22 | ECG_ITS ---
Test Date: 2025-05-22 07:20:49 Measurements Intervals [place] Rate: 60 P: 49 [place]: 150 QRS: -2 QRSD: 67 T: 48 QT: 369 QTc: 369 Interpretive Statements SINUS RHYTHM POSSIBLE LEFT ATRIAL ENLARGEMENT [-0.1mV P-WAVE IN V1/V2] POOR R-WAVE PROGRESSION BORDERLINE ECG No previous ECG available for comparison Electronically Signed On 05-22-2025 07:51:01 CDT by Victor Manuel Acevedo M.D.
--- OUTSIDE RECORDS SUMMARY | 2025-05-22 07:34 | XMS_ITS | Referral Summary ---
Author Organization [facility] Address [address] [place] [id number] Care Team Providers Care Talent Director Name Role Phone Fede Mills Primary Care Provider Lynda Silvestre MD Unavailable [phone] Victor Manuel Real MD Unavailable [phone] Nazario Osman DPM Unavailable [phone] Concha Prakash RN Unavailable Encounters Date Type Department Care Team Description 05/19/2025 3:00 PM CDT Office Visit [facility] [address] [facility] [address] [place] [address] Cameron Marie NP Chronic migraine w/o aura w/o status migrainosus, not intractable (Primary Dx) 05/12/2025 Telephone [place] [facility] Clerk at [facility] [address] [place] [address] Omar Briceño NP 05/09/2025 2:36 PM CDT - 05/09/2025 11:59 PM CDT Hospital Encounter [facility]ANCE BILL[facility] Emergency, Room R Discharge Disposition: Discharge to home or self care 05/06/2025 12:02 PM CDT - 05/09/2025 2:59 PM CDT Hospital Encounter [facility] Acute Medicine [address] [place] [address] Angelica Eagle MD Kheirkhahan, Nazanin, MD Weakness (Primary Dx) Discharge Disposition: Discharge to [facility] 05/06/2025 Telephone [facility] Primary [facility] at [address] [place] [address] Fede Mills PA Concerns for sudden weakness this morning 04/21/2025 3:00 PM CDT Office Visit [facility] Primary Care at [address] [place] [phone] Fede Mills PA Hospital discharge follow-up (Primary Dx); Type 2 diabetes mellitus with microalbuminuria, without long-term current use of insulin (HCC); Hypertension, essential; Stage 3a chronic kidney disease (HCC); Acute chest pain; Hypertensive urgency; Intractable headache, unspecified chronicity pattern, unspecified headache type; Hyperkalemia; Acquired hypothyroidism; Wheelchair dependent; Parkinson's disease with dyskinesia, with fluctuations (HCC) 04/20/2025 Telephone [facility] Primary Care at [address] [phone] Fede Mills PA Medical Question/Miscellaneo us 04/14/2025 Telephone [facility] Primary Care at [address] [phone] Fede Mills PA Additional Services Or Orders 04/14/2025 10:25 AM CDT Lab [address] [address] Hyperkalemia 04/12/[address] [place] [phone] Lupe Oliveira, RN Home Health 04/10/2025 3:25 AM CDT - 04/11/2025 2:10 PM CDT Hospital Encounter [facility] IMU [address] [place] [phone] Cuco Luke MD Holland, MD Sherrell Marroquin Nazanin, MD Acute chest pain (Primary Dx); [...] mg subcutaneous every 30 days 1 mL 05/23/20 24 Active carbidopa-levo dopa (SINEMET) 25-100 [...] 17 g by mouth daily 510 g 1 05/09/20 25 025 Active senna-docusate (PERICOLACE) 8.6-50 [...] 11/22/2023 Assessment & Plan (12/27/2023 1:32 PM CREW [employer]EM[employer]): -new diagnosis -reported in bilateral lower extremities [...] 07/04/2022 Assessment & Plan (12/27/2023 1:35 PM CREW FOREMAN): -chronic -previously taking 25 mcg of levothyroxine -discontinued during hospitalization from 11/22/2023-11/25/2023 USP (current) use of aspirin 01/10/2022 Generalized edema 11/02/2021 Assessment & Plan (11/02/2021 10:33 AM CREW FOREMAN): Check tsh Cbc bnp; for eval Try restrict salt Acute bilateral low back pain without sciatica 1 Assessment & Plan (11/02/2021 10:39 AM CREW FOREMAN): Trial pt to see if can help [...] 06/03/2020 Assessment & Plan (11/02/2021 10:34 AM CREW FOREMAN): Recheck to confirm not worseining prior xstool hem neg Assessment & Plan (06/16/2021 10:38 AM CDT): Iron up to iron sat up to 16 and hgb to 11.5 and geteting to nl and cont iron and check Assessment & Plan (01/10/2021 11:25 AM CREW FOREMAN): blod cnts p a little and I cj stable stay on iron as on for nwo and seclf chweck Assessment & Plan (09/07/2020 1:28 PM CREW FOREMAN): Iron stil low and takes mvi with [...] drugs Assessment & Plan (01/01/2025 10:10 AM CREW FOREMAN): Chemistry Lab Results Component Value Date SODIUM [...] needed. Assessment & Plan (11/02/2021 10:31 AM CREW FOREMAN): Creat sctable and due for 24 hr [...] kidneys. Assessment & Plan (01/06/2019 5:28 PM CREW FOREMAN): Worsening some. CC down to 46 from [...] diet Assessment & Plan (01/10/2021 11:27 AM CREW FOREMAN): Your cholesterol in the form of ldl [...] diet Assessment & Plan (09/15/2019 11:25 AM CREW FOREMAN): ldl at 58 and great no chanes [...] 08/19/2018 Assessment & Plan (11/12/2022 3:05 PM CREW FOREMAN): The patient was counseled on a heart-healthy, [...] care. Assessment & Plan (11/02/2021 10:31 AM CREW FOREMAN): a1c at 5.8 and near nl Diabetes [...] months Assessment & Plan (01/10/2021 11:22 AM CREW FOREMAN): Cr clear up to 50 from 35. [...] kidneys. Assessment & Plan (09/07/2020 1:27 PM CREW FOREMAN): A`1c nl at 5.6 and will stopthe [...] care. Assessment & Plan (09/15/2019 11:24 AM CREW FOREMAN): screeens for renal funcniton stabl eto better [...] dec Assessment & Plan (01/06/2019 5:26 PM CREW FOREMAN): The patient was counseled on a heart-healthy, [...] hypertension. Assessment & Plan (01/01/2025 10:50 AM CREW FOREMAN): BP Readings from Last 3 Encounters: 01/01/25 [...] hypertension. Assessment & Plan (12/27/2023 1:31 PM CREW FOREMAN): -chronic, suboptimally controlled -currently takes Coreg daily [...] controlled. Assessment & Plan (01/10/2021 11:21 AM CREW FOREMAN): bp good and a1c up to 6.1 [...] hypertension. Assessment & Plan (09/15/2019 11:23 AM CREW FOREMAN): The bp good and th3 a1c neqr [...] bp. Assessment & Plan (01/06/2019 5:27 PM CREW FOREMAN): Recommend DASH diet, heart-healthy lifestyle, exercise. Discussed [...] hypertension. Assessment & Plan (10/18/2017 10:30 AM CREW FOREMAN): bp good and no chagesHypertension, Medical treament [...] care. Assessment & Plan (01/01/2025 10:03 AM CREW FOREMAN): Chronic, stable, and at goal of A1c [...] diagnosis of diabetes in children. According to [place] Diabetes Association (ADA) guidelines, hemoglobin A1c <7.0% [...] diagnosis of diabetes in children. According to [place] Diabetes [employer] (ADA) guidelines, hemoglobin A1c <7.0% [...] pyr'ly Assessment & Plan (01/10/2021 11:24 AM CREW FOREMAN): Urine protetin cme up to 192 and up. On meds to help and cotn as on for now and check Assessment & Plan (06/03/2020 3:42 PM CDT): Dropping back on honey to 2.5 Given renal and bp and k some high will check in futureif ka goes up any alexis need to reduce to stop the alldactone Assessment & Plan (09/15/2019 11:24 AM CREW FOREMAN): lurine protein down to 4.7 and Very nl on meds as on.l no changes Assessment & Plan (05/13/2019 11:00 AM CDT): Urine protien up touch to 44 and 30 and less nl. With back off aldactone alexis box come up some and check it onreturn [...] care. Assessment & Plan (10/18/2017 10:31 AM CREW FOREMAN): a1c at 6.2 and 6.5 diabetes. So [...] 01/21/2025 Assessment & Plan (01/01/2025 10:01 AM CREW FOREMAN): Chronic problem, exacerbated at this time. Point of care urinalysis today: Repeat urine culture Initiate antibiotics at this time based on most recent culture data: Rx ciprofloxacin 500 mg twice a day for 5 days Body mass index (BMI) of 23. 0 to 23.9 in adult 12/27/2023 06/11/2024 Assessment & Plan (12/27/2023 1:39 PM CREW FOREMAN): Wt Readings from Last 3 Encounters: 11/22/23 [...] hypertension. Assessment & Plan (11/02/2021 10:32 AM CREW FOREMAN): Bp; stable anld keep meds sameHypertension, Medical [...] diet Assessment & Plan (01/10/2021 11:26 AM CREW FOREMAN): Work to stoppoing wt gain Benign hypertensive kidney d isease with chronic kidney disease stage I through stage IV, or unspecified(403.10) 06/03/2020 03/06/2022 Assessment & Plan (11/02/2021 10:33 AM CREW FOREMAN): Renal screen stable nad bp good and [...] bp. Assessment & Plan (01/10/2021 11:23 AM CREW FOREMAN): bp good and renal better no chages in meds Assessment & Plan (09/07/2020 1:27 PM CREW FOREMAN): bp good and will gfr lower try [...] 09/15/201907/04 Assessment & Plan (09/15/2019 11:28 AM CREW FOREMAN): Given age and last nl without need [...] 021 Assessment & Plan (09/07/2020 1:28 PM CREW FOREMAN): Work to keepst able Assessment & Plan [...] 11/29/201708/05 Assessment & Plan (12/04/2017 4:55 PM CREW FOREMAN): If bleeds then apply direct p[ressure and will stop. bandaid after dial soap nguyen twice a day. Antibiotic oinment on and bakndaid to prtect tentus 7 yrs ago and up to date. No repeat needed for this low risk wound. Hyperlipidemia 09/22/2016 08/19/2018 Overview (02/09/2017): HYPERLIPIDEMIA NEC/NOS Assessment & Plan (10/18/2017 10:31 AM CREW FOREMAN): ldl at 59 and great and no [...] drink = 0.6 oz pur e alcohol) [facility] Utilities Answer Date Recorded In the past 12 months has [employer], gas, oil, or water [employer] threatened to shut off services in your [...] often do you attend chur ch or caodaism services? Never 05/07/2025 Do you belong to [...] place to sleep or slept in a fdc (including now)? No 11/23/2023 Housing Stability Vital Sign Answer Ethan e Recorded In the last 12 months, was t here a time when you were not able to pay the mortgage or rent on time? No 05/07/2025 In the past 12 months, how m any times have you moved where you were living? 0 05/07/2025 At any time in the past 12 m [facility], were you homeless or living in a fdc (including now)? No 05/07/2025 Personal Safety Answer [...] on file Legal Sex Female 11:52 PM CREW FOREMAN Gender Identity Not on file Sexual Orientation Not on file Last Filed Vital Signs Vital Sign Reading Time Taken Comments Blood Pressure 159/87 05/19/2025 3:01 PM CDT Pulse 55 05/19/2025 3:01 PM CDT Temperature 36.4 C (97.5 F) 05/09/2025 7:54 AM CDT Respiratory Rate 12 05/09/2025 7:54 AM CDT Oxygen Saturation 95% 05/19/2025 3:01 PM CDT Inhaled Oxygen Concentration - - Weight 73.2 kg (161 lb 6 oz) 05/06/2025 5:11 PM CDT Height 154.9 cm (5' 1) 05/19/2025 3:01 PM CDT Body Mass Index 30.49 05/06/2025 [...] Results * Potassium (05/09/2025 11:41 AM CDT) Pathologist [facility] Potassium, pl 4.7 3.3 - 4.9 mmol/L Blood 05/09/2025 11:4 1 AM CDT 05/09/2025 11:59 AM CDT Harmony Wynne MD LAB BLOOD ORDERABLES Margaret l Result Performing Organization Address City/[facility]/ZIP Co de Phone Number RASHMI FOX ([place]) [address] [facility] [place] [address] * (ABNORMAL) Troponin T high-sensitivity 6-hour (05/09/2025 3:53 AM CDT) [facility] Trop T hs 42(H) <=14 ng/L Comment: Interpretive Data For further hscTnT resources including the diagnostic algorithm and an aid in interpretation, copy and paste this link: https://nrl.testcatalog.org/show/hsTrop Current Interpretive Data last revised 2020. Trop T hs delta See Comment ng/L CE STEVEN FOX ([place]) Comment:Inappropriate collec tion time to report a delta. Trop T hs pct delta See Comment % CERBRITTANY FOX ([place]) Comment:Inappropriate collec tion time to report a delta. Trop T hs interp See Comment C ELA FOX ([place]) Comment:Inappropriate collec tion time to report a delta. Blood 05/09/2025 3:53 AM CDT 05/09/2025 4:34 AM CDT us Antwan Kan MD LAB BLOOD ORDERABLES Final Resu lt RASMHI FOX ([place]) [address] [facility] [place] [address] * (ABNORMAL) Troponin T high-sensitivity 4-hour (05/09/2025 3:53 AM CDT) Pathologist [facility] Trop T hs 41(H) <=14 ng/L Comment: Interpretive Data For further hscTnT resources including the diagnostic algorithm and an aid in interpretation, copy and paste this link: https://nrl.testcatalog.org/show/hsTrop Current Interpretive Data last revised 2020. Trop T hs delta See Comment ng/L CE RNTORSTEN FOX ([place]) Comment:Inappropriate collec tion time to report a delta. Trop T hs pct delta See Comment % RASHMI FOX ([place]) Comment:Inappropriate collec tion time to report a delta. Trop T hs interp See Comment C ERNTORSTEN FOX ([place]) Comment:Inappropriate collec tion time to report a delta. Blood 05/09/2025 3:53 AM CDT 05/09/2025 4:34 AM CDT us Antwan Kan MD LAB BLOOD ORDERABLES Final Resu lt RASHMI RUDDY ([place]) [address] [facility] [place] [address] * (ABNORMAL) eGFR (05/09/2025 3:53 AM CDT) [...] BLOOD ORDERABLES Final Resu lt RASHMI FOX ([place]) [address] [facility] [place] [address] * Differential, auto (05/09/2025 3:53 AM CDT) Neutrophil abs 3.83 1.50 - 6.50 K/cumm Imm gran abs 0.08 0.00 - 0.10 K/cumm [facility] ([place]) Lymphocyte abs 1.79 0.80 - 3.30 K/cumm [facility] ([place]) Monocyte abs 0.63 0.20 - 0.80 K/cumm [facility] ([place]) Eosinophil abs 0.08 0.00 - 0.50 K/cumm [facility] ([place]) Basophil abs 0.02 0.00 - 0.10 K/cumm [facility] ([place]) Neutrophil pct 59.7 % [facility] ([place]) Comment: Interpretive Data Percent cell count reference ranges are not reported, since discordance with absolute values may lead to misinterpretation of CBC data. Current Interpretive Data was last revised on 2018. Imm gran pct 1.2 % [facility] ([place]) Comment: Interpretive Data Percent cell count reference ranges are not reported, since discordance with absolute values may lead to misinterpretation of CBC data. Current Interpretive Data was last revised on 2018. Lymphocyte pct 27.8 % [facility] ([place]) Comment: Interpretive Data Percent cell count reference ranges are not reported, since discordance with absolute values may lead to misinterpretation of CBC data. Current Interpretive Data was last revised on 2018. Monocyte pct 9.8 % [facility] ([place]) Comment: Interpretive Data Percent cell count reference ranges are not reported, since discordance with absolute values may lead to misinterpretation of CBC data. Current Interpretive Data was last revised on 2018. Eosinophil pct 1.2 % [facility] ([place]) Comment: Interpretive Data Percent cell count reference [...] Final Resu lt [facility] ([place]) [address] [facility] [place] [address] * (ABNORMAL) CBC with auto differential (05/09/2025 [...] Final Resu lt RASHMI FOX ([place]) [address] [facility] [place] [address] * (ABNORMAL) Comprehensive metabolic panel (05/09/2025 3:53 [...] ORDERABLES Final Resu lt Performing Organization Address City/[facility]/ZIP Co de Phone Number RASHMI FOX ([place]) 1 [facility] [place] [address] * (ABNORMAL) Troponin T high-sensitivity 2-hour (05/08/2025 10:28 PM CDT) Trop T hs 45(H) <=14 ng/L Comment: Interpretive Data For further hscTnT resources including the diagnostic algorithm and an aid in interpretation, copy and paste this link: https://nrl.testcatalog.org/show/hsTrop Current Interpretive Data last revised 2020. Trop T hs delta -4 ng/L [facility] ([place]) Trop T hs interp Insignificant [facility] ([place]) Blood 05/08/2025 10:2 8 PM CDT 05/08/2025 10:30 PM CDT us Antwan Kan MD LAB BLOOD ORDERABLES Final Resu lt RASHMI FOX ([place]) [address] [facility] [place] [address] * ECG 12 lead (05/08/2025 8:57 PM CDT) 05/08/2025 8:57 PM CDT Narrative [facility] - 05/09/2025 8:14 PM CDT Vent Rate: 57 bpm RR Interval: 1036 msec IA Interval: 149 msec QRS Duration: 69 msec QT Interval: 372 msec QTC Interval: 367 msec P-R-T [place]: 40 - 8 - 59 degrees IMPRESSION: SINUS BRADYCARDIA BORDERLINE ECG NO CHANGE FROM PREVIOUS TRACING NOTED Electronically Signed By: Jesus Vasquez MD us Antwan Kan MD ECG ORDERABLES Final Result Performing Organization Address City/[facility]/ZIP Co de Phone Number [facility] * (ABNORMAL) Troponin T high-sensitivity series (baseline, [...] ORDERABLES Final Resu lt Performing Organization Address City/[facility] Co de Phone Number [facility] ([place]) [address] [place] [address] Department [place] [address] * (ABNORMAL) eGFR (05/08/2025 6:17 AM CDT) [...] MD LAB BLOOD ORDERABLES Final Resu lt [facility] ([place]) [address] [facility] [place] [address] * Differential, auto (05/08/2025 6:17 AM CDT) Neutrophil abs 3.71 1.50 - 6.50 K/cumm Imm gran abs 0.06 0.00 - 0.10 K/cumm [facility] ([place]) Lymphocyte abs 1.71 0.80 - 3.30 K/cumm [facility] ([place]) Monocyte abs 0.74 0.20 - 0.80 K/cumm [facility] ([place]) Eosinophil abs 0.07 0.00 - 0.50 K/cumm [facility] ([place]) Basophil abs 0.02 0.00 - 0.10 K/cumm [facility] ([place]) Neutrophil pct 58.8 % [facility] ([place]) Comment: Interpretive Data Percent cell count reference [...] MD LAB BLOOD ORDERABLES Final Resu lt [facility] ([place]) [address] [facility] [place] [address] * (ABNORMAL) CBC with auto differential (05/08/2025 [...] 15.7(H) 11.1 - 14.9 % [facility] ([place]) RDW SD 51.0(H) 35.7 - 48.1 fL [facility] ([place]) NRBC abs 0.00 0.00 - 0.01 K/cumm [facility] ([place]) Blood 05/08/2025 6:17 AM CDT 05/08/2025 6:26 AM CDT us Antwan Kan MD LAB BLOOD ORDERABLES Final Resu lt RASHMI [facility] ([place]) [address] [facility] [place] [address] * (ABNORMAL) Comprehensive metabolic panel (05/08/2025 6:17 [...] classification and Diagnosis of Diabetes Diabetes Care 202; 46: S19-S40. Current interpretive data was last [...] Final Resu lt [facility] ([place]) [address] [facility] [place] [address] * (ABNORMAL) Urinalysis reflex to microscopic (05/07/2025 [...] tendency for uric acid stone formation. Source: [facility] Current Interpretive Data was last revised on [...] ORDERABLES Final Resu lt Performing Organization Address City/[facility]/ZIP Co de Phone Number RASHMI FOX ([place]) 1 [facility] [place] [address] * (ABNORMAL) Urinalysis, microscopic only (05/07/2025 6:04 PM CDT) WBC, ur 6-10(A) 0 - 5 /HPF RBC, ur 0-2 0 - 2 /HPF [facility] ([place]) Epithelial cells, squamous, ur 11-20(A) 0 - 5 /HPF [facility] ([place]) Bacteria, ur 1+(A) [facility] ([place]) Mucous, ur Present(A) [facility] ([place]) Urine 05/07/2025 6:04 PM CDT 05/07/2025 6:09 PM CDT Antwan Kan MD LAB URINE ORDERABLES Final Resu lt Performing Organization Address [facility]/ZIP Co de Phone Number RASHMI FOX ([place]) 1 [facility] [place] [address] * MRI Lumbar Spine WO Contrast (05/07/2025 [...] dated 05/06/2025 and 11/04/2021. FINDINGS: SEGMENTATION: 5 rkj-vwv-atvogay lumbar type vertebral bodies. ALIGNMENT: Mild anterolisthesis [...] facet arthropathy with mild neural foraminal narrowing, bytl-miodyvy-thwy-right. L2-L3: No significant disc bulge or spinal canal stenosis. Thickened ligamentum flavum and facet arthropathy with ybxp-lx-rvcpopey left and mild right neural foraminal narrowing. [...] and series 11, image 15). IMPRESSION: 1. Xmjd-jd-jizrozil lumbar disc degeneration with thickened ligamentum flavum [...] Jonas Han D.O. AP: AP Report ID: [id number] Reading Location: [place] [address] Procedure Note Jonas Han, DO - 05/07/2025 [...] dated 05/06/2025 and 11/04/2021. FINDINGS: SEGMENTATION: 5 vgv-vnw-agthcng lumbar type vertebral bodies. ALIGNMENT: Mild anterolisthesis [...] and facet arthropathy with mild neural foraminalnarrowing, cfru-hghdthx-zukf-right. L2-L3: No significant disc bulge or spinal canal stenosis. Thickened ligamentum flavum and facet arthropathy with qtrj-xx-exzlaoru left andmild right neural foraminal narrowing. L3-L4: [...] and series 11, image 15). IMPRESSION: 1. Ylde-kl-irnqdzto lumbar disc degeneration with thickened ligamentum flavum [...] Han D.O. AP: JOSE ENRIQUE Report ID: [id number] Reading Location: [id number] us Cameron Marie INSEAMER IMG MRI PROCEDURES Final Re sult * [...] BLOOD ORDERABLES Final Resu lt RASHMI FOX ([place]) [address] [facility] Department [place] [address] * Differential, auto (05/07/2025 3:00 AM CDT) Neutrophil abs 3.05 1.50 - 6.50 K/cumm Imm gran abs 0.05 0.00 - 0.10 K/cumm RASHMI FOX ([place]) Lymphocyte abs 1.69 0.80 - 3.30 [...] Final Resu lt [facility] ([place]) [address] [facility] Department [place] [address] * (ABNORMAL) CBC with auto differential (05/07/2025 [...] Final Resu lt RASHMI FOX ([place]) [address] [facility] [place] [address] * TSH (05/07/2025 3:00 AM CDT) Thyroid Stimulating Hormone 3.06 0.30 - 4.20 mcIUnit/mL Blood 05/07/2025 3:00 AM CDT 05/07/2025 3:39 AM CDT us Antwan Kan MD LAB BLOOD ORDERABLES Final Resu lt [facility] ([place]) [address] [facility] Department [place] [address] * (ABNORMAL) Comprehensive metabolic panel (05/07/2025 3:00 [...] ([place]) AST 23 10 - 45 Units/L RASHMI FOX ([place]) Blood 05/07/2025 3:00 AM CDT 05/07/2025 3:39 AM CDT us Antwan Kan MD LAB BLOOD ORDERABLES Final Resu lt RASHMI FOX ([place]) 1 [facility] [place] [address] * POCT glucose (05/06/2025 5:10 PM CDT) Glucose, POC 89 70 - 199 mg/dL Blood 05/06/2025 5:10 PM CDT 05/06/2025 5:10 PM CDT Angelica Eagle MD LAB POCT ORDERABLES - DEV ICE Final Result Performing Organization Address City/[facility]/ZIP Co de Phone Number RASHMI FOX ([place]) [address] [facility] [place] [address] * XR Spine Lumbar 4 or More [...] states that is normal. Pt has equal farmer tree fruit and nut crops strength. TECHNIQUE: 6 radiographic view(s) of the [...] by Cameron Lyons M.D., JR: Report ID: [id number] Reading Location: [place] [address] Procedure Note Cameron Lyons MD - 05/06/2025 [...] states that is normal. Pt has equal farmer tree fruit and nut crops strength. TECHNIQUE: 6 radiographic view(s) of the [...] by Cameron Lyons M.D. JR: Report ID: [id number] Reading Location: [id number] Joie Felipe MAYTE IMG XR PROCEDURES Final Result * XR [...] states that is normal. Pt has equal farmer tree fruit and nut crops strength. TECHNIQUE: AP pelvis, 2 views of [...] by Cameron Lyons M.D. JR: Report ID: [id number] Reading Location: [id number] Procedure Note Cameron Lyons MD - 05/06/2025 [...] states that is normal. Pt has equal farmer tree fruit and nut crops strength. TECHNIQUE: AP pelvis, 2 views of [...] by Cameron Lyons M.D. JR: Report ID: [id number] Reading Location: [id number] us Angelica Eagle MD IMG XR PROCEDURES [...] states that is normal. Pt has equal farmer tree fruit and nut crops strength. TECHNIQUE: 2 radiographic view(s) of the [...] by Cameron Lyons M.D., JR: Report ID: [id number] Reading Location: [id number] Procedure Note Cameron Lyons MD - 05/06/2025 [...] states that is normal. Pt has equal farmer tree fruit and nut crops strength. TECHNIQUE: 2 radiographic view(s) of the [...] by Cameron Lyons M.D. JR: Report ID: [id number] Reading Location: [id number] us Angelica Eagle MD IMG XR PROCEDURES [...] tendency for uric acid stone formation. Source: [facility] Current Interpretive Data was last revised on [...] to microscopic UA will be performed. [facility] ([place]) Urine 05/06/2025 1:42 PM CDT 05/06/2025 1:53 PM CDT Angelica Eagle MD LAB MICROBIOLOGY - GENERA L ORDERABLES Final Result Performing Organization Address [facility]/ZIP Co de Phone Number RASHMI FOX ([place]) [address] [facility] [place] [address] * (ABNORMAL) Urinalysis, microscopic only (05/06/2025 1:42 PM CDT) WBC, ur 0-5 0 - 5 /HPF RBC, ur 0-2 0 - 2 /HPF [facility] ([place]) Epithelial cells, squamous, ur 6-10(A) 0 - 5 /HPF [facility] ([place]) Bacteria, ur Trace(A) [facility] ([place]) Mucous, ur Present(A) CERNER A ([place]) Culture Reflex Comment Reflex conditions for urine culture (WBC >10) not met. [facility] (JAME) Urine 05/06/2025 1:42 PM CDT 05/06/2025 1:53 PM CDT Angelica Eagle MD LAB URINE ORDERABLES Margaret l Result Performing Organization Address City/[facility]/ZIP Co de Phone Number RASHMI FOX (JAME) 1 [facility] [place] [address] * XR Chest 1 Vw Portable (05/06/2025 [...] states that is normal. Pt has equal farmer tree fruit and nut crops strength. TECHNIQUE: Single radiographic view(s) of the chest. COMPARISON: Chest radiograph 04/10/2025 FINDINGS: The heart appears normal in size. There is blunting of the left costophrenic angle which could reflect trace pleural effusion. IMPRESSION: Trace left pleural effusion. THIS IS AN ELECTRONICALLY VERIFIED FINAL REPORT 05/06/2025 12:55 PM - Electronically signed by Cameron Lyons M.D. JR: Report ID: [id number] Reading Location: [id number] Procedure Note Cameron Lyons MD - 05/06/2025 [...] and sees a neurologist. Pt took tylenol [id number]:30. Speech slightly slurred, but states that is normal. Pt has equalgrip strength. TECHNIQUE: Single radiographic view(s) of the chest. COMPARISON: Chest radiograph 04/10/2025 FINDINGS: The heart appears normal in size. There is blunting of the leftcostophrenic angle which could reflect trace pleural effusion. IMPRESSION: Trace left pleural effusion. THIS IS AN ELECTRONICALLY VERIFIED FINAL REPORT 05/06/2025 12:55 PM - Electronically signed by Cameron SalterD. JR: Report ID: [id number] Reading Location: [id number] Joie HU IMG XR PROCEDURES Final Result * ECG 12 lead (05/06/2025 12:04 PM CDT) 05/06/2025 12:0 4 PM CDT Narrative [facility] - 05/06/2025 1:14 PM CDT Vent Rate: 59 bpm RR Interval: 1011 msec IA Interval: 134 msec QRS Duration: 82 msec QT Interval: 360 msec QTC Interval: 359 msec P-R-T [place]: 40 - 6 - 53 degrees IMPRESSION: SINUS BRADYCARDIA WITH SINUS ARRHYTHMIA BORDERLINE ECG NO CHANGE FROM PREVIOUS TRACING NOTED Electronically Signed By: Jesus Vasquez MD Angelica Eagle MD ECG ORDERABLES Final Res ult [facility] * (ABNORMAL) eGFR (05/06/2025 12:04 PM CDT) [...] Margaret neumann Result [facility] ([place]) 1 [facility] [place] [address] * Differential, auto (05/06/2025 12:04 PM CDT) [...] Margaret neumann Result [facility] ([place]) 1 [facility] [place] [address] * (ABNORMAL) CBC with auto differential (05/06/2025 [...] Angelica Eagle MD LAB BLOOD ORDERABLES Margaret nel Result [facility] ([place]) 1 [facility] Department [place] [address] * (ABNORMAL) Comprehensive metabolic panel (05/06/2025 12:04 [...] ORDERABLES Margaret l Result Performing Organization Address City/[facility]/ZIP Co de Phone Number RASHMI FOX ([place]) 1 [facility] [place] [address] * (ABNORMAL) eGFR (04/14/2025 10:35 AM CDT) [...] ORDERABLES Margaret l Result Performing Organization Address City/[facility]/ZIP Co de Phone Number RASHMI FOX ([place]) 1 [facility] [place] [address] * (ABNORMAL) Basic metabolic panel (04/14/2025 10:35 AM CDT) Sodium 141 135 - 145 mmol/L Potassium, pl 4.7 3.3 - 4.9 mmol/L [facility] ([place]AME) Chloride 103 97 - 110 mmol/L [facility] ([place]) CO2 26 22 - 32 mmol/L [facility] ([place]) Anion gap 12 2 - 15 mmol/L [facility] ([place]) BUN 31(H) 6 - 25 mg/dL [facility] ([place]) Creatinine 1.04 0.60 - 1.10 mg/dL [facility] ([place]AME) Glucose 123 70 - 199 mg/dL [facility] (JAME) Comment: Interpretive Data Fasting glucose >/= [...] classification and Diagnosis of Diabetes Diabetes Care 202; 46: S19-S40. Current interpretive data was last revised 2022. Calcium 9.4 8.5 - 10.3 mg/dL [facility] ([place]AME) Blood 04/14/2025 10:3 5 AM CDT 04/14/2025 10:38 AM CDT Harmony Wynne MD LAB BLOOD ORDERABLES Margaret l Result RASHMI [facility] ([place]AME) 1 [facility] Department [place] [address] * (ABNORMAL) Potassium (04/11/2025 11:38 AM CDT) Potassium, pl 5.1(H) 3.3 - 4.9 mmol/L Blood 04/11/2025 11:3 8 AM CDT 04/11/2025 11:43 AM CDT Harmony Wynne MD LAB BLOOD ORDERABLES Margaret l Result Performing Organization Address City/[facility]/ZIP Co de Phone Number RASHMI FOX ([place]) 1 [facility] [place] [address] * (ABNORMAL) eGFR (04/11/2025 2:37 AM CDT) [...] 2:37 AM CDT 04/11/2025 3:32 AM CDT Sivlina Elena MD LAB BLOOD ORDERABLES Margaret l Result [facility] FOX ([place]) 1 [facility] [place] [address] * Differential, auto (04/11/2025 2:37 AM CDT) Neutrophil abs 4.57 1.50 - 6.50 K/cumm Imm gran abs 0.02 0.00 - 0.10 K/cumm [facility] ([place]) Lymphocyte abs 1.25 0.80 - 3.30 K/cumm [...] BLOOD ORDERABLES Margaret nel Result [facility] ([place]) 1 [facility] Department [place] [address] * (ABNORMAL) CBC with auto differential (04/11/2025 2:37 AM CDT) [facility] WBC 6.62 3.80 - 9.90 K/cumm Hgb [...] Margaret neumann Result [facility] ([place]) 1 [facility] Department [place] [address] * (ABNORMAL) Comprehensive metabolic panel (04/11/2025 2:37 AM CDT) [facility] Sodium 138 135 - 145 mmol/L Potassium, [...] ([place]) Glucose 94 70 - 199 mg/dL [facility] ([place]) Comment: Interpretive Data [...] 2022. Calcium 9.3 8.5 - 10.3 mg/dL [facility] ([place]) Bilirubin, total 0.3 0.1 - 1.2 mg/dL [facility] ([place]) Protein, pl 6.5 6.5 - 8.5 g/dL [facility] ([place]) Albumin 3.2(L) 3.5 - 5.0 g/dL [facility] ([place]) Alk phos 80 40 - 130 Units/L [facility] ([place]) ALT <5(L) 7 - 45 Units/L [facility] ([place]) AST 34 10 - 45 Units/L [facility] ([place]) Comment: Hemolysis present. Results may be affected. Slightly Hemolyzed Specimen Blood 04/11/2025 2:37 AM CDT 04/11/2025 3:32 AM CDT us Silvina Elena MD LAB BLOOD ORDERABLES Margaret neumann Result [facility] FOX ([place]) 1 [facility] Department [place] [address] * TRANSTHORACIC ECHO (TTE) COMPLETE W DOPPLER/CF WO CONTRAST (04/10/2025 3:52 PM CDT) Estimated EF 70 % CONS SCIMAGE Anatomical Region Laterality Modality Ultrasound 04/10/2025 3:42 PM CDT Narrative 04/10/2025 4:53 PM CDT [address] [address] Echocardiogram Report Patient Name: NICOLLE HERNÁNDEZ : 1935 Study Date: 04/10/2025 3:42:13 PM Gender: F Tech: Location: [id number] Ref Provider: MELVIN HUNTER Height(Cm): BSA: Weight(Kg): [...] Procedure Note Melvin Hunter MD - 04/10/[address] [place] [address] Echocardiogram Report Patient Name: NICOLLE HERNÁNDEZ : 1935 Study Date: 04/10/2025 3:42:13 PM Gender: F Tech: Location: [id number] Ref Provider: MELVIN HUNTER Height(Cm): BSA: Weight(Kg): [...] Dr Melvin Hunter 04/10/2025 4:52:32 PM CDT Melvin Hunter MD CV ECHO PROCEDURES Final Resu lt * ECG 12 lead (04/10/2025 10:53 AM CDT) 04/10/2025 10:5 3 AM CDT Narrative [facility] - 04/10/2025 11:56 AM CDT Vent Rate: 60 bpm RR Interval: 996 msec IA Interval: 144 msec QRS Duration: 71 msec QT Interval: 370 msec QTC Interval: 370 msec P-R-T [place]: 39 - -4 - 66 degrees IMPRESSION: SINUS RHYTHM NORMAL ECG Compared to prior EKG, heart rate has increased Electronically Signed By: Jesus Vasquez MD Silvina Elena MD ECG ORDERABLES Final Res ult [facility] * POCT glucose (04/10/2025 10:03 AM CDT) Glucose, POC 157 70 - 199 mg/dL Blood 04/10/2025 10:0 3 AM CDT 04/10/2025 10:03 AM CDT Silvina Elena MD LAB POCT ORDERABLES - DEV ICE Final Result [facility] ([place]) 1 [facility] Department [place] [address] * (ABNORMAL) Urinalysis reflex to microscopic and culture Urine (04/10/2025 9:24 AM CDT) Color, ur Yellow Yellow Clarity, ur Turbid(A) Clear [facility] ([place]AME) Specific gravity, ur 1.016 1.003 - 1.030 [facility] ([place]) pH, urine 6.5 [facility] ([place]) Comment: Interpretive Data U rine pH is affected by diet, medications, systemic acid-base disturbances, and renal tubular function. pH may affect urinary stone formation. For example, urine pH below 6.0 may help reduce the tendency for calcium phosphate stones and pH greater than 6.0 may reduce the tendency for uric acid stone formation. Source: [facility] Current Interpretive Data was last revised on [...] Reflex to microscopic UA will be performed. [facility] ([place]) Urine 04/10/2025 9:24 AM CDT 04/10/2025 9:47 AM CDT us Silvina Elena MD LAB MICROBIOLOGY - GENERA L ORDERABLES Final Result [facility] FOX ([place]) 1 [facility] Department [place] [address] * (ABNORMAL) Urinalysis, microscopic only (04/10/2025 9:24 [...] urine culture (WBC >10) not met. [facility] ([place]) Urine 04/10/2025 9:24 AM CDT 04/10/2025 9:47 AM CDT us Silvina Elena MD LAB URINE ORDERABLES Margaret neumann Result RASHMI FOX ([place]) 1 [facility] Department [place] [address] * CT Head WO Contrast (04/10/2025 6:25 [...] Regis Reyes M.D. NS: NS Report ID: [id number] Reading Location: [id number] Procedure Note Regis Reyes MD - 04/10/2025 [...] Regis Reyes M.D. NS: NS Report ID: [id number] Reading Location: [place] [address] Cuco Luke MD IMG CT PROCEDURES Final [...] ORDERABLES Final Re sult Performing Organization Address [facility] Co de Phone Number RASHMI FOX ([place]) 1 [facility] [place] [address] * (ABNORMAL) Troponin T high-sensitivity 2-hour (04/10/2025 [...] ORDERABLES Final Re sult Performing Organization Address [facility] Co de Phone Number RASHMI FOX ([place]) 1 [facility] [place] [address] * XR Chest 1 Vw Portable (if [...] Tristan Ryan M.D. AR: CECILIA Report ID: [id number] Reading Location: [id number] Procedure Note Tristan Ryan MD - 04/10/2025 [...] Tristan Ryan M.D. AR: C[place]IL[place] Report ID: [id number] Reading Location: [place] [address] Cuco Luke MD IMG XR PROCEDURES Final [...] BLOOD ORDERABLES Final Re sult RASH[facility] FOX ([place]) 1 [facility] [place] [address] * eGFR (04/10/2025 12:44 AM CDT) eGFR [...] BLOOD ORDERABLES Final Re sult RASHMI FOX ([place]) 1 [facility] [place] [address] * Differential, auto (04/10/2025 12:44 AM CDT) [...] Final Re sult [facility] ([place]) 1 [facility] [place] [address] * (ABNORMAL) CBC with auto differential (04/10/2025 [...] Final Re sult RASHMI FOX ([place]) 1 [facility] [place] [address] * (ABNORMAL) Comprehensive metabolic panel (04/10/2025 12:44 [...] MD LAB BLOOD ORDERABLES Final Re sult [facility] ([place]AME) 1 [facility] [place] [address] * ECG 12 lead (04/10/2025 12:32 AM CDT) 04/10/2025 12:3 2 AM CDT Narrative [facility] - 04/10/2025 8:35 AM CDT Vent Rate: 41 bpm RR Interval: 1434 msec IA Interval: 144 msec QRS Duration: 72 msec QT Interval: 407 msec QTC Interval: 345 msec P-R-T [place]: 41 - -4 - 52 degrees IMPRESSION: SINUS BRADYCARDIA WITH SINUS ARRHYTHMIA POSSIBLE LEFT ATRIAL ENLARGEMENT [-0.1mV P WAVE IN V1/V2] BORDERLINE ECG NO CHANGE FROM PREVIOUS TRACING NOTED Electronically Signed By: Jesus Vasquez MD us Cuco Luke MD ECG ORDERABLES Final Result Performing Organization Address City/[facility] Co de Phone Number [facility] [employer] [facility] * (ABNORMAL) Hemoglobin A1c (01/21/2025 3:11 PM CDT) Hgb A1C 6.2(H) 4.0 - 5.6 % Estimated Average Glucose 131 mg/dL RASHMI FOX ([place]) Comment: The ADA recommends reporting an estimated Average Glucose (eAG) with all Hemoglobin A1c results using the equation derived from a study of 507 normal and diabetic adults. Minority populations were underrepresented and children were not included. (Diabetes Care 31:8091-0223, 2008). The eAG is not equivalent to a fasting glucose. Blood 01/21/2025 3:11 PM CDT 01/21/2025 3:15 PM CDT Narrative RASHMI FOX ([place]) - 01/21/2025 4:11 PM CDT FASTING 1-2 WEEKS BEFORE JANUARY 2025 APPT us Fede HU LAB BLOOD ORDERABLES Fi nal Result RASHMI FOX ([place]) 1 [facility] Department [place] [address] * Lipid panel (01/21/2025 3:11 PM CDT) Pathologist [facility] Cholesterol 187 30 - 199 mg/dL Comment: [...] 3. Micheal Simental et al. NOHEMY Cardiol. 2019March 05;5(5):540-548. doi: 10.1001/jamacardio.2020.0013 Current Interpretive Data was last revised on 2024. Non-HDL Cholesterol 98 mg/dL RASHMI MORA) Comment: Interpretive Data Ages [...] revised on 2018. Chol/HDL ratio 2 VIKA MORA) Blood 01/21/2025 3:11 PM CDT 01/21/2025 3:15 PM CDT Narrative RASHMI MORA) - 01/21/2025 4:06 PM CDT FASTING 1-2 WEEKS BEFORE JANUARY 2025 APPT us Fede HU LAB BLOOD ORDERABLES Fi nal Result RASHMI FOX ([place]) 1 [facility] Department [place] [address] * (ABNORMAL) Albumin Creatinine Ratio, Urine (06/11/2024 3:25 PM CDT) Albumin Ur 577.8 mg/L Comment: Interpretive Data No reference range established. Current interpretive data was last revised 2019. Testing performed by: [facility], [address] [place] [address]., [id number] Creatinine Ur 117.5 mg/dL RASHMI FOX ([place]) Comment: Interpretive Data No reference range established. Current interpretive data was last revised 2019. Testing performed by: [facility], [address] [place] [address]., [id number] Albumin Creatinine Ratio, Ur 492(H) 1 - 29 mg/g RASHMI FOX ([place]) Comment:Testing performed by : [facility], [address] [place] [address]., [id number] Urine 06/11/2024 3:25 PM CDT 06/12/2024 9:00 AM CDT us Fede HU LAB URINE ORDERABLES Fi nal Result Performing Organization Address [facility] Co de Phone Number RASHMI FOX ([place]) 1 [facility] [place] [address] * Diabetic Eye Exam (06/25/2023) us Generic External Data Provider HEALTH MAINTENANC E Final Result * FIT occult blood, fecal (09/02/2020 9:16 AM CDT) FIT occult blood, fecal Negative Negative RASHMI FOX ([place]) Comment: Negative result. This test will not detect upper gastrointestinal bleeding; the HemoQuant test (9220)should be ordered if clinically indicated. Test Performed by: [address] [address] Hob Machine Operator: Jake Mcgarry M.D. Ph.D.; CLIA# [id number] Stool 09/02/2020 9:16 AM CDT 09/02/2020 1:30 PM CDT us George Young MD LAB BODY FLUIDS AND STOOLS ORDERABLES Final Result Performing Organization Address [facility] Co de Phone Number RASHMI FOX ([place]) 1 [facility] [place] [address] * Screening Mammogram Bilateral W Mane (07/27/2020 [...] There has been no suspicious interval change. Result [facility] George Young MD IMG MAMMO PROCEDURE S Final Result * DIABETES FOOT EXAM (01/11/2019) Diabetic Foot Exam Normal Result [facility] Historical Provider HEALTH MAINTENANCE Final Result * COLONOSCOPY (06/25/2007) Pathologist [facility] Colonoscopy Abnormal Comment:Diverticulosis and h emorrhoidal disease Historical Provider HEALTH MAINTENANCE Final Result * DEXA SCAN (03/09/2005) DEXA Scan Normal Result [facility] Historical Provider HEALTH MAINTENANCE Final Result from Last 3 Months or Most Recently Relevant to Health Maintenance Insurance MEDICARE [facility] MEDICARE [facility] Advance Directives For more information, please contact: [phone] * Full Code (Latest Code Status on [...] Name Relationship Healthcare Agent Relationship Communication Red Hernández Spouse First Altern ate Health Care Agent [email or web address] Talent Director Relationship Specialty Start Date End Date Fede Mills PA [address] [facility] [address] [place] [address] PCP - General Internal Medicine 07/04/22 Lynda Silvestre MD [address] [place] [address] Referring Physician Ophthalmology 11/13/22 Victor Manuel Real MD [address] [facility] [address] [place] [address] Consulting Physician Neurology 01/18/24 Nazario Osman DPM [address] [place] [address] Consulting Physician Orthotics 01/18/24 Concha Prakash RN [address] [place] [address] [address] [place] [address] Outbound Sales Specialist 05/06/25
--- OUTSIDE RECORDS SUMMARY | 2025-05-22 07:35 | XMS_ITS | Encounter Summary ---
Author Organization [facility] Healthcare Address [address] [place] [address] Care Team Providers Care Shirt Bander Name Role Phone Fede Mills Primary Care Provider Lynda Silvestre MD Unavailable [phone] Victor Manuel Real MD Unavailable [phone] Nazario Osman DPM Unavailable [phone] Concha Borjas RN Unavailable [phone] Reason for Visit * Reason Onset Date Comments Concerns for sudden weakness this morning 2024 Encounter Details Date Type Department Care Team (Late st Contact Info) Description 05/06/2025 Telephone [facility] Medical Group Primary [facility] [place] [address] [facility] [address] [place] [address] Fede Mills PA [address] [place] [address] [address] [place] [address] Concerns for sudden weakness this morning Social History Tobacco Use Types Packs/Day Years Used Date Smoking Tobacco: Never Smokeless Tobacco: Never Alcohol Use Standard Drinks/Week Comments No 0 (1 standard drink = 0.6 oz pur e alcohol) [facility] Utilities Answer Date Recorded In the past 12 months has [employer], gas, oil, or water company threatened to [...] often do you attend chur ch or gnosticism services? Never 05/07/2025 Do you belong to any clubs o r organizations such as congregation groups, unions, fraternal or athletic groups, or [...] place to sleep or slept in a halfway (including now)? No 11/23/2023 Housing Stability Vital [...] were you homeless or living in a halfway (including now)? No 05/07/2025 Personal Safety Answer [...] on file Legal Sex Female 11:52 PM PROJECT INTERN Gender Identity Not on file Sexual Orientation [...] advise? Thank you, Concha Borjas RN, BSN, [facility] Accountable Care Organization Email [email or web address] documented in this encounter Plan of Treatment Not on file documented as of this encounter Visit Diagnoses Not on filedocumented in this encounter Care Teams Shirt Bander Relationship Specialty Start Date End Date Fede Mills PA [address] [facility] [address] [place] [address] PCP - General Internal Medicine 07/04/22 Lynda Silvestre MD [address] [place] [address] Referring Physician Ophthalmology 11/13/22 Victor Manuel Real MD [address] [facility] [address] [place] [address] Consulting Physician Neurology 01/18/24 Nazario sOman DPM [address] [place] [address] Consulting Physician Orthotics 01/18/24 Concha Borjas, LAMINE [address] [place] [address] [address] [place] [address] Cnc Programmer 05/06/25 documented as of this encounter
--- OUTSIDE RECORDS SUMMARY | 2025-05-22 07:35 | XMS_ITS | Data Portability ---
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 Not available 09/24/2024 16:02:36 [...] By Organization Details Last Modified Time 09/11/2024 [id number] I spent 36 minutes providing care to the patient today. More than 50% of that time was spent in discussing the expected course of the disease, discussing prognosis, coordinating care and counseling of the patient/family. Not available 09/11/2024 13:32:48 09/16/[id number] I spent 36 minutes providing care to the patient today. More than 50% of that time was spent in discussing the expected course of the disease, discussing prognosis, coordinating care and counseling of the patient/family. [email or web address] Not available 09/16/2024 13:09:59 09/19/[id number] I spent 34 minutes providing care to the patient today. More than 50% of that time was spent in discussing the expected course of the disease, discussing prognosis, coordinating care and counseling of the patient/family. Not available 09/19/2024 12:34:58 09/22/[id number] I spent 32 minutes providing care to the patient today. More than 50% of that time was spent in discussing the expected course of the disease, discussing prognosis, coordinating care and counseling of the patient/family. Not available 09/22/2024 13:58:42 09/24/[id number] I spent 40 minutes providing care to [...] contraceptive [place] [address] [place], [address], [facility] 09/22/2024 13:59:19 Imaging Results None recorded. Procedure Notes None recorded. Medical Equipment None Reported. Allergies Allergen ID Allergen Name Allergen Category Reaction Reaction Severity Criticality Documentation Date Start Date Code Code System Note Provider Name and Address Organization Details Recorded Time 34865 Product containin g penicilli n (product) medicatio n Not available Not available Not available 08/26/2024 45199 8001 [facility] [place] [facility] 21:54:56 97053 codeine medicatio n Not available Not available Not available 08/26/2024 2670 RxNorm [place], [place] - [facility] 21:55:01 78147 penicilli n V Not available Not available Not available Not available 08/26/2024 7984 [place] [address] [place], [address], [facility] 10:07:49 89480 Substance with sulfonami de structure and antibacte rial mechanism of action (substanc e) medicatio n Not available Not available Not available 08/26/2024 20582 [facility] [place] [facility] 21:55:11 Medications [...] Relief 50 mcg/actuat ion nasal spray,susp ension Ovid 2 sprays every day by intranasa l [...] /min 97 % 97 % 27.6 kg/m2 27195.2 g 113/51 mm[Hg] [place] [address] [place], [address], [place] [facility] 4 13:24:35 Date Recorded Body height Heart rate Body temperature Respiratory rate Oxygen saturation Oxygen saturation in Arterial blood by Pulse oximetry Body mass index (BMI) Body weight Systolic And Diastolic Provider Name and Address Organization Details Last Updated DateTime 4 154.94 cm 48 /min 98.2 [degF] 18 /min 98 % 98 % 27.3 kg/m2 30188.4 6 g 112/54 mm[Hg] [place] [address] [place], [address], [place] [facility] 4 12:52:09 Date Recorded Body height Heart rate Body temperature Respiratory rate Oxygen saturation Oxygen saturation in Arterial blood by Pulse oximetry Body mass index (BMI) Body weight Systolic And Diastolic Provider Name and Address Organization Details Last Updated DateTime 4 154.94 cm 55 /min 98.2 [degF] 18 /min 94 % 94 % 27.5 kg/m2 73184.9 7 g 141/63 mm[Hg] [place] [address] [place], [address], [place] [facility] 4 12:28:01 Date Recorded Body height Heart rate Body temperature Oxygen saturation Oxygen saturation in Arterial blood by Pulse oximetry Body mass index (BMI) Body weight Respiratory rate Systolic And Diastolic Provider Name and Address Organization Details Last Updated DateTime 4 154.94 cm 53 /min 98.2 [degF] 96 % 96 % 26.6 kg/m2 31940.0 9 g 18 /min 114/49 mm[Hg] [place] [address] [place], [address], [place] [facility] 4 10:33:53 Date Recorded Body height Heart rate Body temperature Respiratory rate Oxygen saturation Oxygen saturation in Arterial blood by Pulse oximetry Body mass index (BMI) Body weight Systolic And Diastolic Provider Name and Address Organization Details Last Updated DateTime 4 154.94 cm 65 /min 97.8 [degF] 18 /min 97 % 97 % 26.7 kg/m2 72630.6 g 106/50 mm[Hg] Meredith Nath, HANDKERCHIEF SAMPLE CLERK [address] [facility], [place], [address], [place] [facility] 15:53:02 [...] available 2023 22:03:47 Medical History Condition Response Anemia Y Diabetes Y Orthostatic Hypotension Y Headaches Y Hypertension Y Gynecological HistoryNo gynecological history recorded. Obstetrics History GPAL:G 0 P 0 0 0 0 Past Encounters Encounter ID Performer Location Encounter Start Date Encounter Closed Date Diagnosis/Indication Diagnosis SNOMED-CT Code Diagnosis ICD10 Code Diagnosis Note [id number] Sarah Avery [address] [address] 08/27/2024 07:28:57 09/05/2024 13:39:02 Chronic headache disorder 002237882 G44.89 continue emgality - patient is overdue [...] as an oupatient by Dr. Real - [facility] f/u is scheduled 09/09 Muscle weakness 48256084 M62.81 likely multifacto rial in nature but neurology felt she had some evidence of extrapyram idal syndrome so recommende d trial of sinemetcon tinue therapiesm onitor symptomsou tpatient f/u with neurology as above Essential hypertension 31121294 I10 stable at present - continue amlodipine and coreg Hypothyroidism 01126467 E03.9 recent TSH normal - continue low dose synthroid Orthostati c hypotension 83236588 I95.1 continue midodrinec heck orthostati cs daily x 5 days Hyperlipidemia 55542223 E78.5 presumed stable - continue statin therapy Allergic rhinitis 124021 04 J30.9 the patient takes routine nicole and flonase as an outpatient - discussed potential trial of prn nicole use which she is not agreeable to at this time - recommend further discussion with PCP Diabetes mellitus 683070 09 E11.9 by historythe patient does not take routine medication s related to this or regularly check blood sugarsmost recent Hba1c was 6.2 (06/11/24)wi ll check prn accuchecks Physical deconditioning 1301797449 9102 R68.89 related to advanced age, recent hospitaliz ation, comorbidit iestherapi es have been initiated - will monitor progresssh e will return home upon discharge with and daughterpr n tylenol for paincontin ue ASA only for DVT prophylaxi scathartic s per standing orders [id number] Sarah Avery, DO [address] [address] 08/29/2024 12:16:23 09/05/2024 13:37:43 Constipation 70834075 K59.00 Add Metamucil & Miralax daily. Chronic he adache disorder 237817733 G44.89 Continue Emgality -- Patient is overdue [...] on 09/[address] Real. Muscle weakness 13446368 M62.81 Likely multifacto rial in nature but neurology felt she had some evidence of extrapyram idal syndrome so recommende d trial of Sinemet.Co ntinue therapies. Monitor symptoms.O utpatient f/u with neurology as above. Essential hypertension 08724309 I10 Stable. Continue Amlodipine and Coreg.Cont inue to trend blood pressures, monitor lytes and renal function, and adjust meds as clinically indicated. Hypothyroidism 17479470 E03.9 Recent TSH normal. Continue low dose Synthroid. Orthostati c hypotension 64280469 I95.1 Stable. Continue Midodrine. Checking orthostati cs daily x 5 days -- lying & sitting only for now. Hyperlipidemia 38253620 E78.5 Presumed stable. Continue statin. Allergic rhinitis 665331 04 J30.9 Takes routine Fexofenadi ne and Flonase as an outpatient . Discussed potential trial of PRN Nicole use, which she is not agreeable to at this time. Will further discuss possible age-adjust ment. Diabetes mellitus 376734 09 E11.9 By history. Does not take routine medication s related to this or regularly check blood sugars.Mos t recent Hba1c on 06/11/24 was 6.2%.Marilyn nue PRN accuchecks . Physical deconditioning 8872241991 9102 R68.89 Related to advanced age, recent hospitaliz ation, comorbidit ies.Therap ies have been initiated - will monitor progress.S he will return home upon discharge with and daughter.C ontinue PRN tylenol for pain.Marilyn nue ASA only for DVT prophylaxi s.Catharti cs per standing orders. [id number] [facility] [address] [address] 09/02/2024 18:23:18 09/04/2024 13:50:19 Constipation 05898056 K59.00 continue Metamucil & Miralax daily. Chronic he adache disorder 304801319 G44.89 Continue Emgality monthlyCon tinue Tegretol as well for migraine prophylaxi s -- serum level is low as she is on very low dose therapy BID.F/U on 09/[address] Real. Muscle weakness 21757594 M62.81 Likely multifacto rial in nature but neurology felt she had some evidence of extrapyram idal syndrome so recommende d trial of Sinemet.Co ntinue therapies. Monitor symptoms.O utpatient f/u with neurology as above. Essential hypertension 07603300 I10 Stable. Continue Amlodipine and Coreg.Cont inue to trend blood pressures, monitor lytes and renal function, and adjust meds as clinically indicated. Hypothyroidism 47214797 E03.9 Recent TSH normal. Continue low dose Synthroid. Orthostati c hypotension 99495046 I95.1 Stable. Continue Midodrine. Orthostati cs completed in sitting and lying x 5 days without significan t drops in pressure Hyperlipidemia 41333209 E78.5 Presumed stable. Continue statin. Allergic rhinitis 453550 04 J30.9 Nicolle takes routine Fexofenadi ne and Flonase as an outpatient . trial decrease in dose of fexofenadi ne to 60 mg daily - ultimately would like to change this to prn Diabetes mellitus 542324 09 E11.9 By history. Does not take routine medication s related to this or regularly check blood sugars.Mos t recent Hba1c on 06/11/24 was 6.2%.Marilyn nue PRN accuchecks . Physical deconditioning 8152850854 9102 R68.89 Related to advanced age, recent hospitaliz ation, comorbidit ies.Therap ies continue - will monitor progress.S he will return home upon discharge with and daughter.C ontinue PRN tylenol for pain.Marilyn nue ASA only for DVT prophylaxi s.Catharti cs per standing orders. [id number] Sarah Avery, [address] [address] 09/04/2024 10:02:16 09/05/2024 13:38:29 Constipation 10923419 K59.00 Improved. Continue Metamucil & Miralax daily. Chronic he adache disorder 038939577 G44.89 Continue Emgality monthly.Co ntinue Tegretol as well for migraine prophylaxi s -- serum level is low as she is on very low dose therapy BID.F/U on 09/[address] Real. Muscle weakness 09229102 M62.81 Likely multifacto rial in nature but neurology felt she had some evidence of extrapyram idal syndrome so recommende d trial of Sinemet.Co ntinue therapies. Monitor symptoms.O utpatient f/u with neurology as above. Essential hypertension 41176614 I10 Stable. Continue Amlodipine and Coreg.Cont inue to trend blood pressures, monitor lytes and renal function, and adjust meds as clinically indicated. Hypothyroidism 17603811 E03.9 Recent TSH normal. Continue low dose Synthroid. Orthostati c hypotension 24874595 I95.1 Stable. Continue Midodrine. Orthostati cs completed in sitting and lying x 5 days without significan t drops in pressure. Hyperlipidemia 51202709 E78.5 Presumed stable. Continue statin. Allergic rhinitis 097658 04 J30.9 Nicolle takes routine Fexofenadi ne and Flonase as an outpatient .Decreased Fexofenadi ne to 60 mg daily -- would ultimately like to change to PRN. Diabetes mellitus 091579 09 E11.9 By history. Does not take routine medication s related to this or regularly check blood sugars.Mos t recent Hba1c on 06/11/24 was 6.2%.Marilyn nue PRN accuchecks . Physical deconditioning 5698597232 9102 R68.89 Related to advanced age, recent hospitaliz ation, comorbidit ies.Therap ies continue - will monitor progress.S he will return home upon discharge with and daughter.C ontinue PRN tylenol for pain.Marilyn nue ASA only for DVT prophylaxi s.Catharti cs per standing orders. [id number] Sarah Avery, [address] [address] 09/09/2024 09:02:30 09/11/2024 15:14:55 Chronic headache disorder 143950296 G44.89 Continue Emgality monthly.Co ntinue Tegretol as well for migraine prophylaxi s -- serum level is low as she is on very low dose therapy BID.F/U on 09/[address] Real. Muscle weakness 83476958 M62.81 Likely multifacto rial in nature but neurology felt she had some evidence of extrapyram idal syndrome so recommende d trial of Sinemet.Co ntinue therapies. Monitor symptoms.O utpatient f/u with neurology as above. Essential hypertension 02306631 I10 Stable. Continue Amlodipine and Coreg (reducing as above).Con tinue to trend blood pressures, monitor lytes and renal function, and adjust meds as clinically indicated. Hypothyroidism 62715479 E03.9 Recent TSH normal. Continue low dose Synthroid. Orthostati c hypotension 51244944 I95.1 Stable. Continue Midodrine. Orthostati cs completed in sitting and lying x 5 days without significan t drops in pressure. Hyperlipidemia 57932164 E78.5 Presumed stable. Continue statin. Constipation 47513842 K5 9.00 Improved. Continue Metamucil & Miralax daily. Allergic rhinitis 036117 04 J30.9 Nicolle takes routine Fexofenadi ne and Flonase as an outpatient .Decreased Fexofenadi ne to 60 mg daily -- would ultimately like to change to PRN. Diabetes mellitus 478308 09 E11.9 By history. Does not take routine medication s related to this or regularly check blood sugars.Mos t recent Hba1c on 06/11/24 was 6.2%.Marilyn nue PRN accuchecks . Physical deconditioning 0559134338 9102 R68.89 Related to advanced age, recent hospitaliz ation, comorbidit ies.Therap ies continue - will monitor progress.S he will return home upon discharge with and daughter.C ontinue PRN tylenol for pain.Marilyn nue ASA only for DVT prophylaxi s.Catharti cs per standing orders. Bradycardia 47981472 R00 .1 HR consistent ly in 50s. Will reduce Carvedilol to 3.125 mg BID with hold parameters . [id number] Sarah Avery DO [address] [address] 09/11/2024 10:12:06 09/15/2024 16:54:16 Bradycardia 26502730 R00.1 HR consistent ly in 50s. Improved with Carvedilol reduction. Monitor closely. Essential hypertension 96098562 I10 Stable. Continue Amlodipine and Coreg (reduced as above).Con tinue to trend blood pressures, monitor lytes and renal function, and adjust meds as clinically indicated. Orthostati c hypotension 86375877 I95.1 Stable. Continue Midodrine. Orthostati cs completed in sitting and lying x 5 days without significan t drops in pressure. Chronic he adache disorder 776158824 G44.89 Continue Emgality monthly.Co ntinue Tegretol as well for migraine prophylaxi s -- serum level is low as she is on very low dose therapy BID.F/U on 09/[address] Real. Muscle weakness 94466812 M62.81 Likely multifacto rial in nature but neurology felt she had some evidence of extrapyram idal syndrome so recommende d trial of Sinemet.Co ntinue therapies. Monitor symptoms.O utpatient f/u with neurology as above. Hypothyroidism 13123633 E03.9 Recent TSH normal. Continue low dose Synthroid. Hyperlipidemia 31029502 E78.5 Presumed stable. Continue statin. Constipation 25069586 K5 9.00 Improved. Continue Metamucil & Miralax daily. Allergic rhinitis 487322 04 J30.9 Nicolle takes routine Fexofenadi ne and Flonase as an outpatient .Decreased Fexofenadi ne to 60 mg daily -- would ultimately like to change to PRN. Diabetes mellitus 402285 09 E11.9 By history. Does not take routine medication s related to this or regularly check blood sugars.Mos t recent Hba1c on 06/11/24 was 6.2%.Marilyn nue PRN accuchecks . Physical deconditioning 6047880266 9102 R68.89 Related to advanced age, recent hospitaliz ation, comorbidit ies.Therap ies continue - will monitor progress.S he will return home upon discharge with and daughter.C ontinue PRN tylenol for pain.Marilyn nue ASA only for DVT prophylaxi s.Catharti cs per standing orders. [id number] Sarah Avery [address] [address] 09/16/2024 09:56:40 09/22/2024 15:18:12 Bradycardia 54697874 R00.1 HR consistent ly in 50s despite dose reduction in Carvedilol dosing. Stop entirely and continue to monitor. Essential hypertension 16435417 I10 Stable. Continue Amlodipine .Stopping Carvedilol as above.Cont inue to trend blood pressures, monitor lytes and renal function, and adjust meds as clinically indicated. Orthostati c hypotension 78551888 I95.1 Stable. Continue Midodrine. Orthostati cs completed in sitting and lying x 5 days without significan t drops in pressure. Chronic he adache disorder 278921750 G44.89 Continue Emgality monthly.Co ntinue Tegretol as well for migraine prophylaxi s -- serum level is low as she is on very low dose therapy BID.F/U on 09/[address] Real. Muscle weakness 15600209 M62.81 Likely multifacto rial in nature but neurology felt she had some evidence of extrapyram idal syndrome so recommende d trial of Sinemet.Co ntinue therapies. Monitor symptoms.O utpatient f/u with neurology as above. Hypothyroidism 38418721 E03.9 Recent TSH normal. Continue low dose Synthroid. Hyperlipidemia 36960195 E78.5 Presumed stable. Continue statin. Constipation 50566264 K5 9.00 Improved. Continue Metamucil & Miralax daily. Allergic rhinitis 116929 04 J30.9 Nicolle takes routine Fexofenadi ne and Flonase as an outpatient .Decreased Fexofenadi ne to 60 mg daily -- would ultimately like to change to PRN. Diabetes mellitus 652838 09 E11.9 By history. Does not take routine medication s related to this or regularly check blood sugars.Mos t recent Hba1c on 06/11/24 was 6.2%.Marilyn nue PRN accuchecks . Physical deconditioning 7149024333 9102 R68.89 Related to advanced age, recent hospitaliz ation, comorbidit ies.Therap ies continue - will monitor progress.S he will return home upon discharge with and daughter.C ontinue PRN tylenol for pain.Marilyn nue ASA only for DVT prophylaxi s.Catharti cs per standing orders. Blood in urine 63470515 R31.9 Hold ASA x 3 days (resume 09/20), report recurrence of hematuria to us.UA pending from this AM.Labs (CBC, BMP, CRP) in AM. Dysuria 71194305 R30.0 SEE ABOVE... [id number] Sarah Avery DO [facility] [address] [place] [address] 09/19/2024 10:08:01 09/24/2024 14:57:53 Blood in urine 11131866 R31.9 Holding ASA x 3 days (resume 09/20), report recurrence of hematuria to us. Per nursing, has not recurred.U rine cx pending from 09/16. Dysuria 77963282 R30.0 SEE ABOVE... Bradycardia 67630643 R00 .1 HR consistent ly in 50s despite dose reduction in Carvedilol dosing. Stopped entirely and improved, but HR often 58-62 bpm still.Asym ptomatic. Essential hypertension 16727667 I10 Stable. Continue Amlodipine . Also on Midodrine for orthostasi s.Stopped Carvedilol as above due to bradycardi a.Continue to trend blood pressures, monitor lytes and renal function, and adjust meds as clinically indicated. Orthostati c hypotension 94256284 I95.1 Stable. Continue Midodrine. Orthostati cs completed in sitting and lying x 5 days without significan t drops in pressure. Chronic he adache disorder 424301398 G44.89 Continue Emgality monthly.Co ntinue Tegretol, as well, for migraine prophylaxi s -- serum level is low as she is on very low dose therapy BID.F/U on 09/[address] Real. Muscle weakness 93371473 M62.81 Likely multifacto rial in nature but neurology felt she had some evidence of extrapyram idal syndrome so recommende d trial of Sinemet.Co ntinue therapies. Monitor symptoms.O utpatient f/u with neurology as above. Hypothyroidism 29805794 E03.9 Recent TSH normal. Continue low dose Synthroid. Hyperlipidemia 32167078 E78.5 Presumed stable. Continue statin. Constipation 65750698 K5 9.00 Improved. Continue Metamucil & Miralax daily. Allergic rhinitis 495428 04 J30.9 Stable. Continue Flonase.Vargas ve stopped Fexofenadi ne without concerns noted. Diabetes mellitus 778723 09 E11.9 By history. Does not take routine medication s related to this or regularly check blood sugars.Mos t recent Hba1c on 06/11/24 was 6.2%.Marilyn nue PRN accuchecks . Physical deconditioning 8446225901 9102 R68.89 Related to advanced age, recent hospitaliz ation, comorbidit ies.Therap ies continue - will monitor progress.S he will return home upon discharge with and daughter.C ontinue PRN tylenol for pain.Marilyn nue ASA only for DVT prophylaxi s.Catharti cs per standing orders. [id number] Sarah Avery, [facility] [address] [place] [address] 09/22/2024 09:41:07 09/24/2024 14:58:37 Blood in urine 10699618 R31.9 Held ASA x 3 days (09/20) with resolution .Urine cx grew 70-99,000 Proteus mirabilis, 60-70,000 Enterococc us faecalis, 50-60,000 mixed skin christie -- in the absence of further symptoms, will not treat with antibiotic s. Will reconsider based on tomorrow's labs.Marilyn nue to monitor closely for symptoms. Dysuria 78534160 R30.0 SEE ABOVE... Bradycardia 84271588 R00 .1 HR consistent ly in 50s despite dose reduction in Carvedilol dosing. Stopped entirely and improved, but HR often 58-62 bpm still.Asym ptomatic. Essential hypertension 90719180 I10 Stable. Continue Amlodipine . Also on Midodrine for orthostasi s.Stopped Carvedilol as above due to bradycardi a.Continue to trend blood pressures, monitor lytes and renal function, and adjust meds as clinically indicated. Orthostati c hypotension 33865215 I95.1 Stable. Continue Midodrine. Orthostati cs completed in sitting and lying x 5 days without significan t drops in pressure. Chronic he adache disorder 462755195 G44.89 Continue Emgality monthly.Co ntinue Tegretol, as well, for migraine prophylaxi s -- serum level is low as she is on very low dose therapy BID.F/U on 09/[address] Real. Muscle weakness 65924220 M62.81 Likely multifacto rial in nature but neurology felt she had some evidence of extrapyram idal syndrome so recommende d trial of Sinemet.Co ntinue therapies. Monitor symptoms.O utpatient f/u with neurology as above. Hypothyroidism 64306633 E03.9 Recent TSH normal. Continue low dose Synthroid. Hyperlipidemia 57731585 E78.5 Presumed stable. Continue statin. Constipation 58195855 K5 9.00 Improved. Continue Metamucil & Miralax daily. Allergic rhinitis 103408 04 J30.9 Stable. Continue Flonase & PRN Fexofenadi ne. Diabetes mellitus 853548 09 E11.9 By history. Does not take routine medication s related to this or regularly check blood sugars.Mos t recent Hba1c on 06/11/24 was 6.2%.Marilyn nue PRN accuchecks . Physical deconditioning 9330083999 9102 R68.89 Related to advanced age, recent hospitaliz ation, comorbidit ies.Therap ies continue - will monitor progress.S he will return home upon discharge with and daughter.C ontinue PRN tylenol for pain.Marilyn nue ASA only for DVT prophylaxi s.Catharti cs per standing orders. Asymptomat ic bacteriuria 412249968 R82.71 SEE ABOVE... [id number] Sarah Avery, [address] [address] 09/24/2024 09:29:29 10/06/2024 06:24:10 Blood in urine 48233035 R31.9 Held ASA x 3 days (09/20) with resolution .Urine cx grew 70-99,000 Proteus mirabilis, 60-70,000 Enterococc us faecalis, 50-60,000 mixed skin christie -- in the absence of further symptoms, did not treat with antibiotic s.Continue to monitor closely for symptoms. Asymptomat ic bacteriuria 865021400 R82.71 SEE ABOVE... Dysuria 53720119 R30.0 SEE ABOVE... Bradycardia 95376850 R00 .1 HR consistent ly in 50s despite dose reduction in Carvedilol dosing. Stopped entirely and improved, but HR often 58-62 bpm still.Asym ptomatic. Essential hypertension 86590218 I10 Stable. Continue Amlodipine . Also on Midodrine for orthostasi s.Stopped Carvedilol as above due to bradycardi a. Orthostati c hypotension [id number] I95.1 Stable. Continue Midodrine. Orthostati cs completed in sitting and lying x 5 days without significan t drops in pressure. Chronic he adache disorder [id number] G44.89 Continue Emgality monthly.Co ntinue Tegretol, as well, for migraine prophylaxi s -- serum level is low as she is on very low dose therapy BID.F/U on 09/[address] Rela -- f/u as directed. Muscle weakness [id number] M62.81 Likely multifacto rial in nature but neurology felt she had some evidence of extrapyram idal syndrome so recommende d trial of Sinemet.Co ntinue therapies. Monitor symptoms.O utpatient f/u with neurology as above. Hypothyroidism [id number] E03.9 Recent TSH normal. Continue low dose Synthroid. Hyperlipidemia [id number] E78.5 Presumed stable. Continue statin. Constipation [id number] K5 9.00 Improved. Continue Metamucil & Miralax daily. Allergic rhinitis 191690 04 J30.9 Stable. Continue Flonase & PRN Fexofenadi ne. Diabetes mellitus [id number] 09 E11.9 By history. Does not take [...] [employer]berg Member ID Guarantor Name 08/26/2024 2 [employer] Nicolle Hernández [id number] Nicolle Hernández 09/24/2024 1 [place]ICARE[place] Nicolle Hernández [id number] Nicolle Hernández 08/26/2024 2 [facility] (MEDICARE REPLACEMENT/A DVANTAGE - HMO) Nicolle Hernández [id number] Nicolle Hernández Notes Date Note Type Note [...] Staff is without concerns. Meredith Nath, ERIN [address] [address] [facility], [place], [address], [place] [employer] 09/11/2024 13:35:52 [...] cues for flexed posture. Meredith Nath, ERIN [address] [facility], [place], [address], [place] [facility] [...] is otherwise without concerns. Meredith Nath, ERIN [address] [facility], [place], [address], [place] [employer] 09/19/2024 12:35:14 [...] family is looking into LTC facilities in [place], [place] and LUCILLE is assisting with this. Meredith Nath, ERIN [address] [address] [facility], [place], [address], [place] [employer] [facility] 09/22/2024 13:58:53 09/24/2024 text/html 88 y.o. y/o femalexandra le with PMH of chronic headache, DM2, HTN, anemia of chronic disease and orthostatic hypotension admitted to [facility] for post acute rehab subsequent to an inpatient stay at [facility] 08/22-08/26/2024 with weakness and a headache. The [...] new complaint or concerns. No nursing concerns.---09/04/24L advid is seated in her room with her [...] family is looking into LTC facilities in [place], [place] and SW is assisting with this.---09/24/24Lucil nadege is seated in her recliner in her room, family at her side. She is doing fairly well, tells me she will be discharging home with her on Sunday, rather than being placed in LTC. Per SW, was not satisfied with LTC facilities he toured so he has acquired a [id number] lift as well as other necessary equipment to care for her. VSS. Staff is without concerns today. Nicolle tells me she remains having periodic headaches about once a day that she describes as frontal and without aura. She feels these are overall well-managed at present. Meredith Nath, ERIN [address] [facility], [place], [address], [place] [employer] [facility] 09/24/2024 16:03:17 OBGyn Episode No OBEpisode recorded.
--- OUTSIDE RECORDS SUMMARY | 2025-05-22 07:35 | XMS_ITS | Clinical Summary ---
Author Organization [facility] Address [address] [place] [id number] Care Team Providers Care User Experience Lead Name Role Phone Fede Mills Primary Care Provider Lynda Silvestre MD Unavailable [phone] Victor Manuel Real MD Unavailable [phone] Nazario Osman DPM Unavailable [phone] Concha Prakash RN Unavailable [phone] Allergies Active Allergy Reactions Criticality Noted Date [...] 11/22/2023 Assessment & Plan (12/27/2023 1:32 PM ALTERATION WORKER): -new diagnosis -reported in bilateral lower extremities [...] 07/04/2022 Assessment & Plan (12/27/2023 1:35 PM ALTERATION WORKER): -chronic -previously taking 25 mcg of levothyroxine -discontinued during hospitalization from 11/22/2023-11/25/2023 jail (current) use of aspirin 01/10/2022 Generalized edema 11/02/2021 Assessment & Plan (11/02/2021 10:33 AM ALTERATION WORKER): Check tsh Cbc bnp; for eval Try restrict salt Acute bilateral low back pain without sciatica 1 Assessment & Plan (11/02/2021 10:39 AM ALTERATION WORKER): Trial pt to see if can help [...] 06/03/2020 Assessment & Plan (11/02/2021 10:34 AM ALTERATION WORKER): Recheck to confirm not worseining prior xstool hem neg Assessment & Plan (06/16/2021 10:38 AM CDT): Iron up to iron sat up to 16 and hgb to 11.5 and geteting to nl and cont iron and check Assessment & Plan (01/10/2021 11:25 AM ALTERATION WORKER): blod cnts p a little and I cj stable stay on iron as on for nwo and seclf chweck Assessment & Plan (09/07/2020 1:28 PM ALTERATION WORKER): Iron stil low and takes mvi with [...] drugs Assessment & Plan (01/01/2025 10:10 AM ALTERATION WORKER): Chemistry Lab Results Component Value Date SODIUM [...] needed. Assessment & Plan (11/02/2021 10:31 AM ALTERATION WORKER): Creat sctable and due for 24 hr [...] kidneys. Assessment & Plan (01/06/2019 5:28 PM ALTERATION WORKER): Worsening some. CC down to 46 from [...] diet Assessment & Plan (01/10/2021 11:27 AM ALTERATION WORKER): Your cholesterol in the form of ldl [...] diet Assessment & Plan (09/15/2019 11:25 AM ALTERATION WORKER): ldl at 58 and great no chanes [...] 08/19/2018 Assessment & Plan (11/12/2022 3:05 PM ALTERATION WORKER): The patient was counseled on a heart-healthy, [...] care. Assessment & Plan (11/02/2021 10:31 AM ALTERATION WORKER): a1c at 5.8 and near nl Diabetes [...] months Assessment & Plan (01/10/2021 11:22 AM ALTERATION WORKER): Cr clear up to 50 from 35. [...] kidneys. Assessment & Plan (09/07/2020 1:27 PM ALTERATION WORKER): A`1c nl at 5.6 and will stopthe [...] care. Assessment & Plan (09/15/2019 11:24 AM ALTERATION WORKER): screeens for renal funcniton stabl eto better [...] dec Assessment & Plan (01/06/2019 5:26 PM ALTERATION WORKER): The patient was counseled on a heart-healthy, [...] hypertension. Assessment & Plan (01/01/2025 10:50 AM ALTERATION WORKER): BP Readings from Last 3 Encounters: 01/01/25 [...] hypertension. Assessment & Plan (12/27/2023 1:31 PM ALTERATION WORKER): -chronic, suboptimally controlled -currently takes Coreg daily [...] bp touch high and will recheck at [facility] in. And bring in monitor [...] controlled. Assessment & Plan (01/10/2021 11:21 AM ALTERATION WORKER): bp good and a1c up to 6.1 [...] hypertension. Assessment & Plan (09/15/2019 11:23 AM ALTERATION WORKER): The bp good and th3 a1c neqr [...] bp. Assessment & Plan (01/06/2019 5:27 PM ALTERATION WORKER): Recommend DASH diet, heart-healthy lifestyle, exercise. Discussed [...] hypertension. Assessment & Plan (10/18/2017 10:30 AM ALTERATION WORKER): bp good and no chagesHypertension, Medical treament [...] care. Assessment & Plan (01/01/2025 10:03 AM ALTERATION WORKER): Chronic, stable, and at goal of A1c [...] diagnosis of diabetes in children. According to [place] [employer] (ADA) guidelines, hemoglobin A1c <7.0% [...] diagnosis of diabetes in children. According to [place] [employer] (ADA) guidelines, hemoglobin A1c <7.0% [...] pyr'ly Assessment & Plan (01/10/2021 11:24 AM ALTERATION WORKER): Urine protetin cme up to 192 and up. On meds to help and cotn as on for now and check Assessment & Plan (06/03/2020 3:42 PM CDT): Dropping back on honey to 2.5 Given renal and bp and k some high will check in futureif ka goes up any alexis need to reduce to stop the alldactone Assessment & Plan (09/15/2019 11:24 AM ALTERATION WORKER): lurine protein down to 4.7 and Very [...] care. Assessment & Plan (10/18/2017 10:31 AM ALTERATION WORKER): a1c at 6.2 and 6.5 diabetes. So [...] 01/21/2025 Assessment & Plan (01/01/2025 10:01 AM ALTERATION WORKER): Chronic problem, exacerbated at this time. Point of care urinalysis today: Repeat urine culture Initiate antibiotics at this time based on most recent culture data: Rx ciprofloxacin 500 mg twice a day for 5 days Body mass index (BMI) of 23. 0 to 23.9 in adult 12/27/2023 06/11/2024 Assessment & Plan (12/27/2023 1:39 PM ALTERATION WORKER): Wt Readings from Last 3 Encounters: 11/22/23 [...] hypertension. 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 Assessment & Plan (01/10/2021 11:23 AM ALTERATION WORKER): bp good and renal better no chages in meds Assessment & Plan (09/07/2020 1:27 PM ALTERATION WORKER): bp good and will gfr lower try [...] 09/15/201907/04 Assessment & Plan (09/15/2019 11:28 AM ALTERATION WORKER): Given age and last nl without need [...] 021 Assessment & Plan (09/07/2020 1:28 PM ALTERATION WORKER): Work to keepst able Assessment & Plan [...] 11/29/201708/05 Assessment & Plan (12/04/2017 4:55 PM ALTERATION WORKER): If bleeds then apply direct p[ressure and will stop. bandaid after dial soap nguyen twice a day. Antibiotic oinment on and bakndaid to prtect tentus 7 yrs ago and up to date. No repeat needed for this low risk wound. Hyperlipidemia 09/22/2016 08/19/2018 Overview (02/09/2017): HYPERLIPIDEMIA NEC/NOS Assessment & Plan (10/18/2017 10:31 AM ALTERATION WORKER): ldl at 59 and great and no [...] 05/19/2025 3:00 PM CDT Office Visit [facility] [address] [place] [phone] Cameron Marie NP Chronic migraine w/o aura w/o status migrainosus, not intractable (Primary Dx) 05/12/2025 Telephone [place] at [facility] [address] [place] [address] Omar Briceño NP 05/09/2025 2:36 PM CDT - 05/09/2025 11:59 PM CDT Hospital Encounter [facility] Emergency, Room R Discharge Disposition: Discharge to home or self care 05/06/2025 12:02 PM CDT - 05/09/2025 2:59 PM CDT Hospital Encounter [facility] [address] [place] [address] Angelica Eagle MD Kheirkhahan, Nazanin, MD Weakness (Primary Dx) Discharge Disposition: Discharge to SNF 05/06/2025 Telephone [facility] at [address] [phone] Fede Mills PA Concerns for sudden weakness this morning 04/21/2025 3:00 PM CDT Office Visit [facility] at [address] [phone] Fede Mills PA Hospital discharge follow-up (Primary Dx); Type 2 diabetes mellitus with microalbuminuria, without long-term current use of insulin (HCC); Hypertension, essential; Stage 3a chronic kidney disease (HCC); Acute chest pain; Hypertensive urgency; Intractable headache, unspecified chronicity pattern, unspecified headache type; Hyperkalemia; Acquired hypothyroidism; Wheelchair dependent; Parkinson's disease with dyskinesia, with fluctuations (HCC) 04/20/2025 Telephone [facility] Primary [facility] at [address] [phone] Fede Mills PA Medical Question/Miscellaneo us 04/14/2025 10:25 AM CDT Lab [address] [phone] Hyperkalemia 04/14/2025 Telephone [facility] at [address] [phone] Fede Mills PA Additional Services Or Orders 04/12/2025 Telephone [facility] [address] [place] [phone] Lupe Oliveira RN Home Health 04/10/2025 3:25 AM CDT - 04/11/2025 2:10 PM CDT Hospital Encounter [address] [address] Cuco Luke MD Holland, Kristy Lynn, MD [...] drink = 0.6 oz pur e alcohol) [facility] Utilities Answer Date Recorded In the past 12 months has th e electric, gas, oil, or water company [...] often do you attend chur ch or yazidi services? Never 05/07/2025 Do you belong to any clubs o r organizations such as christian groups, unions, fraternal or athletic groups, or [...] place to sleep or slept in a senior living (including now)? No 11/23/2023 Housing Stability Vital Sign Answer Ethan e Recorded In the last 12 months, was t here a time when you were not able to pay the mortgage or rent on time? No 05/07/2025 In the past 12 months, how m any times have you moved where you were living? 0 05/07/2025 At any time in the past 12 [facility], were you homeless or living in a senior living (including now)? No 05/07/2025 Personal Safety Answer [...] on file Legal Sex Female 11:52 PM ALTERATION WORKER Gender Identity Not on file Sexual Orientation [...] Screening-Bone Density Scan 03/09/2007 03/09/2005 Covid-19 Vaccine (2023-2 5 season) 2024 07/24/2022, 02/03/2022, 02/03/2022, Additional [...] BLOOD ORDERABLES Margaret l Result [facility] [place] [address] [place] [address] * (ABNORMAL) Troponin T high-sensitivity 6-hour (05/09/2025 3:53 AM CDT) Trop T hs 42(H) <=14 ng/L Comment: Interpretive Data For further hscTnT resources including the diagnostic algorithm and an aid in interpretation, copy and paste this link: https://nrl.testcatalog.org/show/hsTrop Current Interpretive Data last revised 2020. Trop T hs delta See Comment ng/L CE STEVEN FOX ([place]) Comment:Inappropriate collec tion time to report a delta. Trop T hs pct delta See Comment % [facility] FOX ([place]) Comment:Inappropriate collec tion time to report a delta. Trop T hs interp See Comment C ELA FOX ([place]) Comment:Inappropriate collec tion time to report a delta. Blood 05/09/2025 3:53 AM CDT 05/09/2025 4:34 AM CDT us Antwan Kan MD LAB BLOOD ORDERABLES Final Resu lt Performing Organization Address City/[facility]/ZIP Co de Phone Number [facility] ([place]) [address] [place] [address] * (ABNORMAL) Troponin T high-sensitivity 4-hour (05/09/2025 3:53 AM CDT) Trop T hs 41(H) <=14 ng/L Comment: Interpretive Data For further hscTnT resources including the diagnostic algorithm and an aid in interpretation, copy and paste this link: https://nrl.testcatalog.org/show/hsTrop Current Interpretive Data last revised 2020. Trop T hs delta See Comment ng/L CE STEVEN FOX ([place]) Comment:Inappropriate collec tion time to report a delta. Trop T hs pct delta See Comment % [facility] FOX ([place]) Comment:Inappropriate collec tion time to report a delta. Trop T hs interp See Comment C ELA FOX ([place]) Comment:Inappropriate collec tion time to report a delta. Blood 05/09/2025 3:53 AM CDT 05/09/2025 4:34 AM CDT us Antwan Kan MD LAB BLOOD ORDERABLES Final Resu lt [facility] ([place]) [address] [facility] [place] [address] * (ABNORMAL) eGFR (05/09/2025 3:53 AM CDT) [...] MD LAB BLOOD ORDERABLES Final Resu lt [facility] ([place]) [address] [place] [address] * Differential, auto (05/09/2025 3:53 AM CDT) [...] revised on 2018. Monocyte pct 9.8 % [facility] ([place]) Comment: Interpretive Data [...] BLOOD ORDERABLES Final Resu lt [facility] ([place]) [address] [place] [address] * (ABNORMAL) CBC with auto differential (05/09/2025 [...] 32.3 32.3 - 35.7 g/dL [facility] ([place]) RDW CV 15.6(H) 11.1 - 14.9 % [facility] ([place]) RDW SD 47.9 35.7 - 48.1 fL [facility] ([place]) NRBC abs 0.02(H) 0.00 - 0.01 K/cumm [facility] ([place]) Blood 05/09/2025 3:53 AM CDT 05/09/2025 4:34 AM CDT us Antwan Kan MD LAB BLOOD ORDERABLES Final Resu lt [facility] ([place]) [address] [facility] [place], [place] [id number] * (ABNORMAL) Comprehensive metabolic panel (05/09/2025 3:53 [...] Final Resu lt [facility] ([place]) [address] [place] [address] * (ABNORMAL) Troponin T high-sensitivity 2-hour (05/08/2025 [...] ORDERABLES Final Resu lt Performing Organization Address [facility] Co de Phone Number [facility] ([place]) [address] [place] [address] * ECG 12 lead (05/08/2025 8:57 PM CDT) 05/08/2025 8:57 PM CDT Narrative [facility] - 05/09/2025 8:14 PM CDT Vent Rate: 57 bpm RR Interval: 1036 msec OR Interval: 149 msec QRS Duration: 69 msec QT Interval: 372 msec QTC Interval: 367 msec P-R-T [place]: 40 - 8 - 59 degrees IMPRESSION: SINUS BRADYCARDIA BORDERLINE ECG NO CHANGE FROM PREVIOUS TRACING NOTED Electronically Signed By: Jesus Vasquez MD Antwan Kan MD ECG ORDERABLES Final Result Performing Organization Address [facility] Phone Number [facility] [employer] [facility] * (ABNORMAL) Troponin T high-sensitivity [...] ORDERABLES Final Resu lt Performing Organization Address [facility]/ZIP Co de Phone Number [facility] FOX ([place]) [address] [place] [address] * (ABNORMAL) eGFR (05/08/2025 6:17 AM CDT) Pathologist [facility] eGFR 54(L) >=60 mL/min/1. 73 m2 Comment: [...] ORDERABLES Final Resu lt Performing Organization Address City/[facility]/ZIP Co de Phone Number [facility] ZhengJAME) [address] [place] [address] * Differential, auto (05/08/2025 6:17 AM CDT) [...] BLOOD ORDERABLES Final Resu lt [facility] ([place]) [address] [place] [address] * (ABNORMAL) CBC with auto differential (05/08/2025 [...] Final Resu lt [facility] ([place]) [address] [place] [address] * (ABNORMAL) Comprehensive metabolic panel (05/08/2025 6:17 [...] MD LAB BLOOD ORDERABLES Final Resu lt [facility] ([place] [address] [facility] [place], [place] [id number] * (ABNORMAL) Urinalysis reflex to microscopic (05/07/2025 [...] tendency for uric acid stone formation. Source: [facility] Current Interpretive Data was last revised on [...] LAB URINE ORDERABLES Final Resu lt [facility] ([place]) [address] [place] [address] * (ABNORMAL) Urinalysis, microscopic only (05/07/2025 6:04 [...] LAB URINE ORDERABLES Final Resu lt [facility] [place] [address] [place] [address] * MRI Lumbar Spine WO Contrast (05/07/2025 [...] dated 05/06/2025 and 11/04/2021. FINDINGS: SEGMENTATION: 5 mci-xrh-vocxlky lumbar type vertebral bodies. ALIGNMENT: Mild anterolisthesis [...] facet arthropathy with mild neural foraminal narrowing, wfbt-bytwhwe-rlqw-right. L2-L3: No significant disc bulge or spinal canal stenosis. Thickened ligamentum flavum and facet arthropathy with tbyj-om-olnbynlv left and mild right neural foraminal narrowing. [...] and series 11, image 15). IMPRESSION: 1. Ytrt-rh-xpybhwxb lumbar disc degeneration with thickened ligamentum flavum [...] Jonas Han D.O. AP: AP Report ID: [id number] Reading Location: [place] [address] Procedure Note Jonas Han, DO - 05/07/2025 [...] dated 05/06/2025 and 11/04/2021. FINDINGS: SEGMENTATION: 5 bor-ppz-ootqdcu lumbar type vertebral bodies. ALIGNMENT: Mild anterolisthesis [...] and facet arthropathy with mild neural foraminalnarrowing, pfgc-jpuozue-owgq-right. L2-L3: No significant disc bulge or spinal canal stenosis. Thickened ligamentum flavum and facet arthropathy with qkbt-sg-lpformwj left andmild right neural foraminal narrowing. L3-L4: [...] and series 11, image 15). IMPRESSION: 1. Srhz-in-zdzlendp lumbar disc degeneration with thickened ligamentum flavum [...] Han D.O. AP: JOSE ENRIQUE Report ID: [id number] Reading Location: [place] [address] Cameron Marie NP IMG MRI PROCEDURES Final Re sult * [...] BLOOD ORDERABLES Final Resu lt [facility] ([place]) [address] [place] [address] * Differential, auto (05/07/2025 3:00 AM CDT) [...] Final Resu lt [facility] ([place]) [address] [place] [address] * (ABNORMAL) CBC with auto differential (05/07/2025 [...] Final Resu lt [facility] ([place]) [address] [place] [address] * TSH (05/07/2025 3:00 AM CDT) Pathologist [facility] Thyroid Stimulating Hormone 3.06 0.30 - 4.20 mcIUnit/mL Blood 05/07/2025 3:00 AM CDT 05/07/2025 3:39 AM CDT us Antwan Kan MD LAB BLOOD ORDERABLES Final Resu lt Performing Organization Address City/[facility]/ZIP Co de Phone Number [facility] ([place]) [address] [facility] [place] [address] * (ABNORMAL) Comprehensive metabolic panel (05/07/2025 3:00 AM CDT) Sodium 138 135 - 145 mmol/L Potassium, pl 4.7 3.3 - 4.9 mmol/L [facility] ([place]) Chloride 104 97 - 110 mmol/L [facility] ([place]) CO2 24 22 - 32 mmol/L [facility] ([place]) Anion gap 11 2 - 15 mmol/L [facility] ([place]) BUN 31(H) 6 - 25 mg/dL [facility] ([place]) Creatinine 1.01 0.60 - 1.10 mg/dL [facility] ([place]) Glucose 102 70 [...] Final Resu lt [facility] ([place]) [address] [place] [address] * POCT glucose (05/06/2025 5:10 PM CDT) Glucose, POC 89 70 - 199 mg/dL Blood 05/06/2025 5:10 PM CDT 05/06/2025 5:10 PM CDT us Angelica Eagle MD LAB POCT ORDERABLES - DEV ICE Final Result Performing Organization Address City/[facility]/ZIP Co de Phone Number [facility] [place]) [address] [place] [address] * XR Spine Lumbar 4 or More [...] states that is normal. Pt has equal service cleaner strength. TECHNIQUE: 6 radiographic view(s) of the [...] by Cameron Lyons M.D. JR: Report ID: [id number] Reading Location: [id number] Procedure Note Cameron Lyons MD - 05/06/2025 [...] states that is normal. Pt has equal service cleaner strength. TECHNIQUE: 6 radiographic view(s) of the [...] by Cameron Lyons M.D. JR: Report ID: [id number] Reading Location: [place] [address] Joie HU IMG XR PROCEDURES Final Result [...] states that is normal. Pt has equal service cleaner strength. TECHNIQUE: AP pelvis, 2 views of [...] by Cameron Lyons M.D. JR: Report ID: [id number] Reading Location: [id number] Procedure Note Cameron Lyons MD - 05/06/2025 [...] states that is normal. Pt has equal service cleaner strength. TECHNIQUE: AP pelvis, 2 views of [...] by Cameron Lyons M.D. JR: Report ID: [id number] Reading Location: [id number] us Angelica Eagle MD IMG XR PROCEDURES [...] states that is normal. Pt has equal service cleaner strength. TECHNIQUE: 2 radiographic view(s) of the [...] by Cameron Lyons M.D., JR: Report ID: [id number] Reading Location: [id number] Procedure Note Cameron Lyons MD - 05/06/2025 [...] states that is normal. Pt has equal service cleaner strength. TECHNIQUE: 2 radiographic view(s) of the [...] by Cameron Lyons M.D., JR: Report ID: [id number] Reading Location: [id number] us Angelica Eagle MD IMG XR PROCEDURES [...] tendency for uric acid stone formation. Source: [facility] [employer] Current Interpretive Data was last revised on [...] will be performed. [facility] ([place]) Urine 05/06/2025 1:42 PM CDT 05/06/2025 1:53 PM CDT Angelica Eagle MD LAB MICROBIOLOGY - GENERA L ORDERABLES Final Result [facility] ([place]) [address] [facility] [place] [address] * (ABNORMAL) Urinalysis, microscopic only (05/06/2025 1:42 PM CDT) WBC, ur 0-5 0 - 5 /HPF RBC, ur 0-2 0 - 2 /HPF [facility] ([place]) Epithelial cells, squamous, ur 6-10(A) 0 - 5 /HPF [facility] ([place]) Bacteria, ur Trace(A) [facility] ([place]) Mucous, ur Present(A) [facility] A ([place]) Culture Reflex Comment Reflex conditions for urine culture (WBC >10) not met. [facility] ([place]) Urine 05/06/2025 1:42 PM CDT 05/06/2025 1:53 PM CDT us Angelica Eagle MD LAB URINE ORDERABLES Margaret neumann Result [facility] ([place]) [address] [facility] [address] [facility] [place] [address] * XR Chest 1 Vw Portable (05/06/2025 [...] states that is normal. Pt has equal service cleaner strength. TECHNIQUE: Single radiographic view(s) of the chest. COMPARISON: Chest radiograph 04/10/2025 FINDINGS: The heart appears normal in size. There is blunting of the left costophrenic angle which could reflect trace pleural effusion. IMPRESSION: Trace left pleural effusion. THIS IS AN ELECTRONICALLY VERIFIED FINAL REPORT 05/06/2025 12:55 PM - Electronically signed by Cameron Lyons M.D., JR: Report ID: [id number] Reading Location: [id number] Procedure Note Cameron Lyons MD - 05/06/2025 [...] by Cameron Lyons M.D. JR: Report ID: [id number] Reading Location: [id number] us Joie HU IMG XR PROCEDURES Final Result * ECG 12 lead (05/06/2025 12:04 PM CDT) 05/06/2025 12:0 4 PM CDT Narrative [facility] - 05/06/2025 1:14 PM CDT Vent Rate: 59 bpm RR Interval: 1011 msec OR Interval: 134 msec QRS Duration: 82 msec QT Interval: 360 msec QTC Interval: 359 msec P-R-T [place]: 40 - 6 - 53 degrees IMPRESSION: SINUS BRADYCARDIA WITH SINUS ARRHYTHMIA BORDERLINE ECG NO CHANGE FROM PREVIOUS TRACING NOTED Electronically Signed By: Jesus Vasquez MD Angelica Eagle MD ECG ORDERABLES Final Res ult [facility] * (ABNORMAL) eGFR (05/06/2025 12:04 [...] LAB BLOOD ORDERABLES Margaret l Result [facility] ([place]) [address] [facility] [place] [address] * Differential, auto (05/06/2025 12:04 PM CDT) [...] Margaret neumann Result [facility] ([place]) [address] [facility] [place] [address] * (ABNORMAL) CBC with auto differential (05/06/2025 12:04 PM CDT) Pathologist [facility] WBC 6.83 3.80 - 9.90 K/cumm Hgb [...] MD LAB BLOOD ORDERABLES Margaret neumann Result [facility] ([place]) [address] [facility] [place] [address] * (ABNORMAL) Comprehensive metabolic panel (05/06/2025 12:04 PM CDT) Pathologist [facility] Sodium 139 135 - 145 mmol/L Potassium, pl 4.8 3.3 - 4.9 mmol/L [facility] ([place]) Chloride 101 97 - 110 mmol/L [facility] ([place]) CO2 24 22 - 32 mmol/L [facility] ([place]) Anion gap 15 2 - 15 mmol/L [facility] ([place]) BUN 33(H) 6 - 25 [...] Margaret neumann Result [facility] ([place]) [address] [facility] [place] [address] * (ABNORMAL) eGFR (04/14/2025 10:35 AM CDT) [...] MD LAB BLOOD ORDERABLES Margaret l Result [facility]) [address] [facility] [place] [address] * (ABNORMAL) Basic metabolic panel (04/14/2025 10:35 AM CDT) Sodium 141 135 - 145 mmol/L Potassium, pl 4.7 3.3 - 4.9 mmol/L [facility] ([place]) Chloride 103 97 - 110 mmol/L [facility] ([place]) CO2 26 22 - 32 mmol/L [facility] ([place]) Anion gap 12 2 - 15 mmol/L [facility] ([place]) BUN 31(H) 6 - 25 mg/dL [facility] ([place]) Creatinine 1.04 0.60 - 1.10 mg/dL [facility] ([place]) Glucose 123 70 - 199 mg/dL [facility] ([place]) Comment: Interpretive Data Fasting glucose [...] 2022. Calcium 9.4 8.5 - 10.3 mg/dL [facility] ([place]) Blood 04/14/2025 10:3 5 AM CDT 04/14/2025 10:38 AM CDT Harmony Wynne MD LAB BLOOD ORDERABLES Margaret l Result [facility] ([place]) 1 [facility] [place] [place] [address] * (ABNORMAL) Potassium (04/11/2025 11:38 AM CDT) Potassium, pl 5.1(H) 3.3 - 4.9 mmol/L Blood 04/11/2025 11:3 8 AM CDT 04/11/2025 11:43 AM CDT Harmony Wynne MD LAB BLOOD ORDERABLES Margaret l Result [facility] FOX ([place]) 1 [facility] [place] [address] * (ABNORMAL) eGFR (04/11/2025 2:37 AM CDT) [...] MD LAB BLOOD ORDERABLES Margaret l Result [facility] ([place]) 1 [facility] [place] [address] * Differential, auto (04/11/2025 2:37 AM CDT) [...] MD LAB BLOOD ORDERABLES Margaret l Result [facility] ([place] 1 [facility] Department of Laboratories [place] [id number] * (ABNORMAL) CBC with auto differential (04/11/2025 [...] RDW CV 15.9(H) 11.1 - 14.9 % [facility] ([place]) RDW SD 49.1(H) 35.7 - 48.1 fL [facility] ([place]) NRBC abs 0.00 0.00 - 0.01 K/cumm [facility] ([place]) Blood 04/11/2025 2:37 AM CDT 04/11/2025 3:32 AM CDT Silvina Elena MD LAB BLOOD ORDERABLES Margaret l Result [facility] ([place]) 1 [facility] [place] [address] * (ABNORMAL) Comprehensive metabolic panel (04/11/2025 2:37 AM CDT) Sodium 138 135 - 145 mmol/L Potassium, pl 5.4(H) 3.3 - 4.9 mmol/L [facility] ([place]) Chloride 102 97 - 110 mmol/L [facility] ([place]) CO2 25 22 - 32 mmol/L [facility] ([place]) Anion gap 11 2 - 15 mmol/L [facility] ([place]) BUN 33(H) 6 - 25 mg/dL [facility] ([place]) Creatinine 1.15(H) 0.60 - 1.10 mg/dL [facility] ([place]) Glucose 94 70 - 199 mg/dL [facility] ([place]) Comment: Interpretive Data Fasting [...] 2022. Calcium 9.3 8.5 - 10.3 mg/dL [facility] ([place]) Bilirubin, total 0.3 0.1 - 1.2 mg/dL [facility] ([place]) Protein, pl 6.5 6.5 - 8.5 g/dL [facility] ([place]) Albumin 3.2(L) 3.5 - 5.0 g/dL [facility] ([place]) Alk phos 80 40 - 130 Units/L [facility] ([place]) ALT <5(L) 7 - 45 Units/L [facility] ([place]) AST 34 10 - 45 Units/L [facility] ([place]) Comment: Hemolysis present. Results may be affected. Slightly Hemolyzed Specimen Blood 04/11/2025 2:37 AM CDT 04/11/2025 3:32 AM CDT us Silvina Elena MD LAB BLOOD ORDERABLES Margaret neumann Result [facility] ([place]) 1 [facility] [place] [address] * TRANSTHORACIC ECHO (TTE) COMPLETE W DOPPLER/CF WO CONTRAST (04/10/2025 3:52 PM CDT) Estimated EF 70 % CONS SCIMAGE Anatomical Region Laterality Modality Ultrasound 04/10/2025 3:42 PM CDT Narrative 04/10/2025 4:53 PM CDT [address] [address] Echocardiogram Report Patient Name: NICOLLE HERNÁNDEZ : 1935 Study Date: 04/10/2025 3:42:13 PM Gender: F Tech: Location: [id number] Ref Provider: MELVIN HUNTER Height(Cm): BSA: Weight(Kg): [...] Procedure Note Melvin Hunter MD - 04/10/[address] [place] [address] Echocardiogram Report Patient Name: NICOLLE HERNÁNDEZ : 1935 Study Date: 04/10/2025 3:42:13 PM Gender: F Tech: Location: [id number] Ref Provider: MELVIN HUNTER Height(Cm): BSA: Weight(Kg): [...] CDT) 04/10/2025 10:5 3 AM CDT Narrative [facility] - 04/10/2025 11:56 AM CDT Vent Rate: 60 bpm RR Interval: 996 msec OR Interval: 144 msec QRS Duration: 71 msec QT Interval: 370 msec QTC Interval: 370 msec P-R-T [place]: 39 - -4 - 66 degrees IMPRESSION: SINUS RHYTHM NORMAL ECG Compared to prior EKG, heart rate has increased Electronically Signed By: Jesus Vasquez MD Silvina Elena MD ECG ORDERABLES Final Res ult [facility] * POCT glucose (04/10/2025 10:03 AM CDT) Glucose, POC 157 70 - 199 mg/dL Blood 04/10/2025 10:0 3 AM CDT 04/10/2025 10:03 AM CDT Silvina Elena MD LAB POCT ORDERABLES - DEV ICE Final Result [facility] ([place]) 1 [facility] [place] [address] * (ABNORMAL) Urinalysis reflex to microscopic and culture Urine (04/10/2025 9:24 AM CDT) Color, ur Yellow Yellow Clarity, ur Turbid(A) Clear [facility] ([place]) Specific gravity, ur 1.016 1.003 - [...] tendency for uric acid stone formation. Source: [facility] [employer] Current Interpretive Data was last revised on [...] L ORDERABLES Final Result Performing Organization Address [facility] Co de Phone Number [facility] FOX ([place]) 1 [facility] [place] [address] * (ABNORMAL) Urinalysis, microscopic only (04/10/2025 9:24 AM CDT) WBC, ur 0-5 0 - 5 /HPF RBC, ur 0-2 0 - 2 /HPF [facility] ([place]) Epithelial cells, squamous, ur 1-5 0 - 5 /HPF [facility] ([place]) Bacteria, ur Trace(A) [facility] ([place]) Mucous, ur Present(A) [facility] ([place]) Culture Reflex Comment Reflex conditions for urine culture (WBC >10) not met. [facility] ([place]) Urine 04/10/2025 9:24 AM CDT 04/10/2025 9:47 AM CDT Silvina Elena MD LAB URINE ORDERABLES Margaret l Result Performing Organization Address [facility] de Phone Number [facility] FOX ([place]) 1 [place] [address] * CT Head WO Contrast (04/10/2025 6:25 [...] Regis Reyes M.D. NS: NS Report ID: [id number] Reading Location: [id number] Procedure Note Regis Reyes MD - 04/10/2025 EXAM DESCRIPTION: CT HEAD WO CONTRAST REASON FOR STUDY: Headache, sudden, severe, High blood pressure headache Patient complains of head, neck and chest pain today. TECHNIQUE: Axial images acquired through the brain without intravenous contrast. Sagittal and coronal images reconstructed. Images stored on[employer]. Automated exposure control was used as a [...] Regis Reyes M.D. NS: NS Report ID: [id number] Reading Location: [place] [address] us Cuco Luke MD IMG CT PROCEDURES Final Resul t * (ABNORMAL) Troponin T high-sensitivity 4-hour (04/10/2025 4:45 AM CDT) Trop T hs 28(H) <=14 ng/L Comment: Interpretive Data For further hscTnT resources including the diagnostic algorithm and an aid in interpretation, copy and paste this link: [email or web address]/show/hsTrop Current Interpretive Data last revised 2020. Trop T hs delta -4 ng/L [facility] ([place]) Trop T hs interp Insignificant [facility] ([place]) Blood 04/10/2025 4:45 AM CDT 04/10/2025 4:53 AM CDT us Cuco Luke MD LAB BLOOD ORDERABLES Final Re sult [facility] ([place]) 1 [facility] [place] [address] * (ABNORMAL) Troponin T high-sensitivity 2-hour (04/10/2025 2:53 AM CDT) Trop T hs 32(H) <=14 ng/L Comment: Interpretive Data For further hscTnT resources including the diagnostic algorithm and an aid in interpretation, copy and paste this link: https://nrl.[employer].org/show/hsTrop Current Interpretive Data last revised 2020. Trop T hs delta 0 ng/L [facility] ([place]) Trop T hs interp Insignificant [facility] ([place]) Blood 04/10/2025 2:53 AM CDT 04/10/2025 3:59 AM CDT us Cuco Luke MD LAB BLOOD ORDERABLES Final Re sult [facility] ([place]) 1 [facility] [place] [address] * XR Chest 1 Vw Portable (if [...] Tristan Ryan M.D. AR: CECILIA Report ID: [id number] Reading Location: [id number] Procedure Note Tristan Ryan MD - 04/10/2025 [...] Tristan Ryan M.D. AR: CECILIA Report ID: [id number] Reading Location: [place] [address] us Cuco Luke MD IMG XR PROCEDURES Final [...] BLOOD ORDERABLES Final Re sult [facility] [place] 1 [facility] Department of Laboratories [place], [place] [id number] * eGFR (04/10/2025 12:44 AM CDT) eGFR [...] BLOOD ORDERABLES Final Re sult [facility] ([place]) 1 [facility] [place] [address] * Differential, auto (04/10/2025 12:44 AM CDT) [...] BLOOD ORDERABLES Final Re sult [facility] ([place]) 1 [facility] [place] [address] * (ABNORMAL) CBC with auto differential (04/10/2025 [...] ([place]) MCHC 31.8(L) 32.3 - 35.7 g/dL [facility] ([place]) RDW CV 15.8(H) 11.1 - 14.9 % [facility] ([place]) RDW SD 49.7(H) 35.7 - 48.1 fL [facility] ([place]) NRBC abs 0.00 0.00 - 0.01 K/cumm [facility] ([place]) Blood Venous blood specimen / Unknown 04/10/2025 12:44 AM CDT 04/10/2025 12:59 AM CDT us Cuco Luke MD LAB BLOOD ORDERABLES Final Re sult [facility] ([place]) 1 [facility] [place] [address] * (ABNORMAL) Comprehensive metabolic panel (04/10/2025 12:44 AM CDT) Sodium 138 135 - 145 mmol/L Potassium, pl 4.5 3.3 - 4.9 mmol/L [facility] ([place]) Chloride 101 97 - 110 mmol/L [facility] ([place]) CO2 24 22 - 32 mmol/L [facility] ([place]) Anion gap 13 2 - 15 mmol/L [facility] ([place]) BUN 29(H) 6 - 25 mg/dL [facility] ([place]) Creatinine 0.91 0.60 - 1.10 mg/dL [facility] ([place]) Glucose 159 70 - 199 mg/dL [facility] ([place]) Comment: Interpretive Data Fasting glucose [...] 2022. Calcium 9.5 8.5 - 10.3 mg/dL [facility] ([place]) Bilirubin, total <0.2 0.1 - 1.2 mg/dL [facility] ([place]) Protein, pl 6.9 6.5 - 8.5 g/dL [facility] ([place]) Albumin 3.4(L) 3.5 - 5.0 g/dL [facility] ([place]) Alk phos 104 40 - 130 Units/L [facility] ([place]) ALT <5(L) 7 - 45 Units/L [facility] ([place]) AST 27 10 - 45 Units/L [facility] ([place]) Comment: Hemolysis present. Results may be affected. Slightly Hemolyzed Specimen Blood 04/10/2025 12:4 4 AM CDT 04/10/2025 12:59 AM CDT Cuco Luke MD LAB BLOOD ORDERABLES Final Re sult Performing Organization Address City/[facility]/ZIP Co de Phone Number [facility] ([place]) 1 [facility] [place] [address] * ECG 12 lead (04/10/2025 12:32 AM CDT) 04/10/2025 12:3 2 AM CDT Narrative [facility] - 04/10/2025 8:35 AM CDT Vent Rate: 41 bpm RR Interval: 1434 msec OR Interval: 144 msec QRS Duration: 72 msec QT Interval: 407 msec QTC Interval: 345 msec P-R-T [place]: 41 - -4 - 52 degrees IMPRESSION: SINUS BRADYCARDIA WITH SINUS ARRHYTHMIA POSSIBLE LEFT ATRIAL ENLARGEMENT [-0.1mV P WAVE IN V1/V2] BORDERLINE ECG NO CHANGE FROM PREVIOUS TRACING NOTED Electronically Signed By: Jesus Vasquez MD Cuco Luke MD ECG ORDERABLES Final Result Performing Organization Address [facility]/ZIP Co de Phone Number [facility] [employer] [facility] * (ABNORMAL) Hemoglobin A1c (01/21/2025 3:11 PM CDT) Hgb A1C 6.2(H) 4.0 - 5.6 % Estimated Average Glucose 131 mg/dL [facility] ([place]) Comment: The ADA recommends reporting an estimated Average Glucose (eAG) with all Hemoglobin A1c results using the equation derived from a study of 507 normal and diabetic adults. Minority populations were underrepresented and children were not included. (Diabetes Care 31:2473-1867, 2008). The eAG is not equivalent to a fasting glucose. Blood 01/21/2025 3:11 PM CDT 01/21/2025 3:15 PM CDT Narrative [facility] ([place]) - 01/21/2025 4:11 PM CDT FASTING 1-2 WEEKS BEFORE JANUARY 2025 APPT Fede HU LAB BLOOD ORDERABLES Fi nal Result [facility] ([place]) 1 [facility] [place] [address] * Lipid panel (01/21/2025 3:11 PM CDT) [...] NCEP Expert Panel. Circulation 2004;110:227 3. Micheal Franklin al. NOHEMY Cardiol. 2020 March 05;5(5):540-548. doi: [...] Fi nal Result [facility] FOX ([place]) 1 [facility] [place] [address] * (ABNORMAL) Albumin Creatinine Ratio, Urine (06/11/2024 3:25 PM CDT) Albumin Ur 577.8 mg/L Comment: Interpretive Data No reference range established. Current interpretive data was last revised 2019. Testing performed by: [facility], [address] [place] [address]., [id number] Creatinine Ur 117.5 mg/dL [facility] ([place]) Comment: Interpretive Data No reference range established. Current interpretive data was last revised 2019. Testing performed by: [facility], [address] [place] [address]., [id number] Albumin Creatinine Ratio, Ur 492(H) 1 - 29 mg/g [facility] ([place]) Comment:Testing performed by : [address] [address] Urine 06/11/2024 3:25 PM CDT 06/12/2024 9:00 AM CDT us Fede HU LAB URINE ORDERABLES Fi nal Result [facility] ([place]) 1 [facility] [place] [address] * Diabetic Eye Exam (06/25/2023) us Generic External Data Provider [facility] E Final Result * FIT occult blood, fecal (09/02/2020 9:16 AM CDT) FIT occult blood, fecal Negative Negative [facility] ([place]) Comment: Negative result. This test will not detect upper gastrointestinal bleeding; the HemoQuant test (1920)should be ordered if clinically indicated. Test Performed by: [place] [address] [employer]: Jake Mcgarry M.D. Ph.D.; CLIA# [id number] Stool 09/02/2020 9:16 AM CDT 09/02/2020 1:30 PM CDT George Young MD LAB BODY FLUIDS AND STOOLS ORDERABLES Final Result Performing Organization Address City/State/[facility] Co de Phone Number [facility] FOX ([place]) 1 [facility] [place] [address] * Screening Mammogram Bilateral W Mane (07/27/2020 [...] EXAM (01/11/2019) Diabetic Foot Exam Normal Result [facility] Provider HEALTH MAINTENANCE Final Result * COLONOSCOPY (06/25/2007) Colonoscopy Abnormal Comment:Diverticulosis and h emorrhoidal disease Result [facility] Provider HEALTH MAINTENANCE Final Result * DEXA SCAN (03/09/2005) DEXA Scan Normal [facility] Provider HEALTH MAINTENANCE Final Result from Last 3 Months or Most Recently Relevant to Health Maintenance Insurance MEDICARE COMMERCIAL GENERIC MEDICARE [facility] Advance Directives For more information, please contact: [phone] * Full Code (Latest Code Status on [...] First Altern ate Health Care Agent [email or web address] User Experience Lead Relationship Specialty Start Date End Date Fede Mills PA [address] [place] [address] [address] [place] [address] PCP - General Internal Medicine 07/04/22 Lynda Silvestre MD [address] [place] [address] Referring Physician Ophthalmology 11/13/22 Victor Manuel Real MD [address] [place] [address] [address] [place] [address] Consulting Physician Neurology 01/18/24 Nazario Osman DPM [address] [place] [address] Consulting Physician Orthotics 01/18/24 Concha Prakash, LAMINE [address] [place] [address] [address] [place] [address] Case Management Director 05/06/25
--- OUTSIDE RECORDS SUMMARY | 2025-05-22 07:35 | XMS_ITS | Clinical Summary ---
Author Organization Unknown Care Team Providers Care Steel Pourer Helper Name Role Phone AGUSTIN PA, CALI Unavailable Unavailable CECILIA PT, ASHOK Unavailable Unavailable SHARIF PIN SETTER, CALI Unavailable Unavailharsh JEROME OT, LATIA Unavailable Unavailable BASIL PT, FERNY Unavailable Unavailable Payers Payer Name Policy Type Policy Number Effective Date Expira tion Date MEDICARE.HEPHZIBAHMYA.[facility] [id number] Problems Condition Name Condition Details Condition Category [...] 00 OBESITY, UNSPECIFIED Active 04-11 00:00: 00 TARPER (CURRENT) USE OF ASPIRIN Active 2023-11 00:00: [...] 180 mg tablet 12-06 00:00: 00 Yes [id number] ALLERGIES 1 tablet DAILY 1 tablet DAILY (route: oral) Med Classific ation: Respirato ry Therapy Agents amitriptyli ne 25 mg tablet 12-06 00:00: 00 05-22 23:59 :00 No [id number] SLEEP 2 tablet BEDTIME 2 tablet BEDTIME (route: oral) Med Classific ation: Central Nervous System Agents aspirin 81 mg tablet,louie yed release 2023-11 00:00: 00 Yes [id number] BLOOD THINNER 1 tablet DAILY 1 tablet DAILY (route: oral) Med Classific ation: Hematolog ical Agents levothyroxi ne 25 mcg tablet 2023-11 00:00: 00 Yes [id number] THYROID 1 tablet BEFORE BREAKFAST 1 tablet BEFORE BREAKFAST (route: oral) Med Classific ation: Endocrine Multivitami n 50 Plus tablet 2023-11 00:00: 00 Yes [id number] VITAMIN 1 tablet DAILY 1 tablet DAILY (route: oral) Med Classific ation: Electroly te Balance-N utritiona l Products simvastatin 10 mg tablet 12-06 00:00: 00 Yes [id number] CHOLESTEROL 1 tablet BEDTIME 1 tablet BEDTIME (route: oral) Med Classific ation: Cardiovas cular Therapy Agents spironolact one 25 mg tablet 12-06 00:00: 00 05-14 00:00 :00 No [id number] DIURETIC 1 tablet DAILY 1 tablet DAILY (route: oral) Med Classific ation: Cardiovas cular Therapy Agents Systane (propylene glycol) 0.4 %-0.3 % eye drops 12-06 00:00: 00 04-19 00:00 :00 No [id number] DRY EYES 1 drops NEEDED 1 drops NEEDED (route: ophthalmic (eye)) Med Classific ation: Ophthalmi c Agents Tylenol Extra Strength 500 mg tablet 12-06 00:00: 00 04-19 00:00 :00 No [id number] PAIN 1 tablet NEEDED 1 tablet NEEDED (route: oral) Med Classific ation: Analgesic , Anti-infl ammatory or Antipyret ic Flonase Allergy Relief 50 mcg/actuati on nasal spray,suspe nsion 12-06 00:00: 00 Yes [id number] ALLERGIES 2 spray DAILY 2 spray DAILY (route: nasal) Med Classific ation: Respirato ry Therapy Agents Metamucil 3.4 gram/5.4 gram oral powder 2023-11 00:00: 00 Yes [id number] CONSTIPATIO N Per instruc tions DAILY Per instructio ns DAILY (route: oral) Med Classific ation: Gastroint estinal Therapy Agents Emgality 120 mg/mL subcutaneou s syringe 2023-11 00:00: 00 Yes [id number] HEADACHE 120 mg MONTHLY 120 mg MONTHLY (route: subcutaneo us) Med Classific ation: Central Nervous System Agents amlodipine 2.5 mg tablet 2023-11 00:00: 00 04-19 00:00 :00 No [id number] BLOOD PRESSURE 1 tablet DAILY 1 tablet DAILY (route: oral) Med Classific ation: Cardiovas cular Therapy Agents carvedilol 6.25 mg tablet 05-14 00:00: 00 04-19 23:59 :00 No [id number] BLOOD PRESSURE 1 tablet 2 TIMES DAILY 1 tablet 2 TIMES DAILY (route: oral) Med Classific ation: Cardiovas cular Therapy Agents furosemide 40 mg tablet 05-14 00:00: 00 04-19 23:59 :00 No [id number] FLUID RETENTION 1 tablet DAILY 1 tablet DAILY (route: oral) Med Classific ation: Cardiovas cular Therapy Agents lidocaine 5 % topical patch 10 00:00: 00 04-19 00:00 :00 No [id number] PAIN 1 adhesiv e patch, medicat ed 2 TIMES DAILY 1 adhesive patch, medicated 2 TIMES DAILY (route: topical) Med Classific ation: Dermatolo gical midodrine 5 mg tablet 2023-11 00:00: 00 04-19 00:00 :00 No [id number] HYPOTENSION 1 tablet 2 TIMES DAILY 1 tablet 2 TIMES DAILY (route: oral) Med Classific ation: Cardiovas cular Therapy Agents Santyl 250 unit/gram topical ointment 08-01 00:00: 00 09-28 00:00 :00 No [id number] WOUND Per instruc tions DAILY Per instructio ns DAILY (route: topical) Med Classific ation: Dermatolo gical acetaminoph en 500 mg capsule 2023-11 00:00: 00 Yes [id number] PAIN 1 capsule EVERY 4 HOURS 1 capsule EVERY 4 HOURS (route: oral) Med Classific ation: Analgesic , Anti-infl ammatory or Antipyret ic Artificial Tears (PF) 0.1 %-0.3 % drops in a dropperette 2023-11 00:00: 00 Yes [id number] EYES 2 dropper ette 2 TIMES DAILY 2 dropperett e 2 TIMES DAILY (route: ophthalmic (eye)) Med Classific ation: Ophthalmi c Agents carbamazepi ne 100 mg chewable tablet 2023-11 00:00: 00 Yes [id number] SEIZURES 1 tablet DAILY 1 tablet DAILY (route: oral) Med Classific ation: Central Nervous System Agents carbidopa 25 mg-levodopa 100 mg tablet 2023-11 00:00: 00 Yes [id number] PARKINSON'S 1 tablet 3 TIMES DAILY 1 tablet 3 TIMES DAILY (route: oral) Med Classific ation: Central Nervous System Agents fexofenadin e 60 mg tablet 2023-11 00:00: 00 04-19 23:59 :00 No [id number] ALLERGIES 1 tablet DAILY 1 tablet DAILY (route: oral) Med Classific ation: Respirato ry Therapy Agents Miralax 17 gram oral powder packet 2023-11 00:00: 00 Yes [id number] CONSTIPATIO N 1 packet DAILY 1 packet DAILY (route: oral) Med Classific ation: Gastroint estinal Therapy Agents ciprofloxac in 500 mg tablet 2023-11 00:00: 00 10-14 23:59 :00 No [id number] ANTIBIOTICS 1 tablet 2 TIMES DAILY 1 tablet 2 TIMES DAILY (route: oral) Med Classific ation: Anti-Infe ctive Agents ciprofloxac in 500 mg tablet 2023-11 00:00: 00 11-24 00:00 :00 No [id number] UTI 1 tablet 2 TIMES DAILY 1 tablet 2 TIMES DAILY (route: oral) Med Classific ation: Anti-Infe ctive Agents Allergy Relief (fexofenadi ne) 180 mg tablet 04-19 00:00: 00 Yes [id number] ALLERGIES ... 1 tablet DAILY 1 tablet DAILY (route: oral) Med Classific ation: Respirato ry Therapy Agents amlodipine 5 mg tablet 04-19 00:00: 00 Yes [id number] HIGH BLOOD PRESSURE 1 tablet DAILY 1 [...] TO EVALUATE, OBSERVE / ASSESS, AND MONITOR, PIN SETTER TO OBSERVE AND MONITOR, PROVIDE SKILLED THERAPEUTIC INTERVENTION, ACTIVITY, EDUCATION, AND TRAINING TO ADDRESS; [code = AGENCY MAY PERFORM A RESUMPTION OF CARE VISIT FOLLOWING ANY HOSPITAL ADMISSION. PT TO EVALUATE, OBSERVE / ASSESS, AND MONITOR, PIN SETTER TO OBSERVE AND MONITOR, PROVIDE SKILLED THERAPEUTIC INTERVENTION, ACTIVITY, EDUCATION, AND TRAINING TO ADDRESS;] Future Scheduled Test BED MOBILI TY (PT/PIN SETTER) [code = BED MOBILITY (PT/PIN SETTER)] Future Scheduled Test SIT TO/FRO M STAND TRANSFERS (PT/PIN SETTER) [code = SIT TO/FROM STAND TRANSFERS (PT/PIN SETTER)] Future Scheduled Test PT/PIN SETTER TO PROVIDE GAIT TRAINING FOR IMPROVED MOBILITY AND /OR TO NORMALIZE GAIT PATTERN [code = PT/PIN SETTER TO PROVIDE GAIT TRAINING FOR IMPROVED MOBILITY AND /OR TO NORMALIZE GAIT PATTERN] Future Scheduled Test NEUROMUSCU LAR RE-EDUCATION / BALANCE / POSTURAL CONTROL (PT) [code = NEUROMUSCULAR RE-EDUCATION / BALANCE / POSTURAL CONTROL (PT)] Future Scheduled Test THERAPEUTI C EXERCISES AND ESTABLISHING A HOME EXERCISE PROGRAM (PT/PIN SETTER) [code = THERAPEUTIC EXERCISES AND ESTABLISHING A HOME EXERCISE PROGRAM (PT/PIN SETTER)] Future Scheduled Test PT/PIN SETTER TO IDENTIFY FALL RISK FACTORS; EDUCATE THE PATIENT/CAREGIVER ON WAYS TO REDUCE FALL RISK FACTORS AND ESTABLISH HOME EXERCISE PROGRAM TO MINIMIZE FALL RISK. MAY TEACH THE PATIENT FLOOR RECOVERY WHEN CLINICALLY APPROPRIATE [code = PT/PIN SETTER TO IDENTIFY FALL RISK FACTORS; EDUCATE THE PATIENT/CAREGIVER ON WAYS TO REDUCE FALL RISK FACTORS AND ESTABLISH HOME EXERCISE PROGRAM TO MINIMIZE FALL RISK. MAY TEACH THE PATIENT FLOOR RECOVERY WHEN CLINICALLY APPROPRIATE] Future Scheduled Test PT / PIN SETTER T O EDUCATE ON HYPERTENSION SELF-MANAGEMENT [code = PT / PIN SETTER TO EDUCATE ON HYPERTENSION SELF-MANAGEMENT] Future Scheduled Test PT / PIN SETTER T O EDUCATE ON HEART FAILURE SELF-MANAGEMENT [code = PT / PIN SETTER TO EDUCATE ON HEART FAILURE SELF-MANAGEMENT] Future Scheduled Test PT TO ASSE SS / PIN SETTER TO MONITOR FOR HEART FAILURE EXACERBATION AND RECORD PATIENT REPORTED WEIGHT, AND NOTIFY THE PHYSICIAN AND/OR THE RN CLINICAL HEAD WAITER/WAITRESS BANQUET FOR PHYSICIAN NOTIFICATION OF HF EXACERBATION (2LB WEIGHT GAIN IN 1 DAY, 5LBS IN A WEEK OR 5 LBS OVER BASELINE; INCREASED SOB, EDEMA, NEEDING MORE PILLOWS AT NIGHT, CRACKLES IN BASIS OF THE LUNGS OR PMI SHIFT) [code = PT TO ASSESS / PIN SETTER TO MONITOR FOR HEART FAILURE EXACERBATION AND RECORD PATIENT REPORTED WEIGHT, AND NOTIFY THE PHYSICIAN AND/OR THE RN CLINICAL HEAD WAITER/WAITRESS BANQUET FOR PHYSICIAN NOTIFICATION OF HF EXACERBATION (2LB WEIGHT GAIN IN 1 DAY, 5LBS IN A WEEK OR 5 LBS OVER BASELINE; INCREASED SOB, EDEMA, NEEDING MORE PILLOWS AT NIGHT, CRACKLES IN BASIS OF THE LUNGS OR PMI SHIFT)] Future Scheduled Test AGENCY MAY PERFORM A RESUMPTION OF CARE VISIT FOLLOWING ANY HOSPITAL ADMISSION. OT TO EVALUATE, OBSERVE / ASSESS, AND MONITOR, ARIN TO OBSERVE AND MONITOR, PROVIDE SKILLED THERAPEUTIC INTERVENTION, ACTIVITY, EDUCATION, AND TRAINING TO ADDRESS SAFETY AND INDEPENDENCE OF ADLS AND FUNCTIONAL TRANSFERS IN HOME ENVRIONMENT. BATHING/SHOWERING (OT/LIFESTYLE COORDINATOR) ACTIVITIES OF DAILY LIVING (OT/LIFESTYLE COORDINATOR) TOILET TRANSFER (OT/LIFESTYLE COORDINATOR) BATH/SHOWER TRANSFER (OT/ARIN) THERAPEUTIC EXERCISE (OT/ARIN) OT / LIFESTYLE COORDINATOR TO EDUCATE ON DIABETES SELF- MANAGEMENT OT/LIFESTYLE COORDINATOR TO MONITOR AND EDUCATE ON OXYGEN SATURATION DURING ADLS/IADLS, NOTIFY PHYSICIAN AND/OR THE RN CLINICAL HEAD WAITER/WAITRESS BANQUET FOR PHYSICIAN NOTIFICATION AND IF O2 SATS BELOW 90% AFTER 10 MIN OF REST. OT/ARIN MAY EDUCATE ON PAIN MANAGEMENT CLINICALLY INDICATED, INCLUDING NON-PHARMACOLOGICAL PAIN REDUCTION TECHNIQUES OT / LIFESTYLE COORDINATOR TO IDENTIFY FALL RISK FACTORS; EDUCATE THE PATIENT/CAREGIVER ON WAYS TO REDUCE FALL RISK FACTORS AND ESTABLISH HOME EXERCISE PROGRAM TO MINIMIZE FALL RISK. MAY TEACH THE PATIENT FLOOR RECOVERY WHEN CLINICALLY APPROPRIATE. OT/LIFESTYLE COORDINATOR TO EDUCATE ON HEART FAILURE SELF-MANAGEMENT OT/LIFESTYLE COORDINATOR TO EDUCATE ON HYPERTENSION SELF-MANAGEMENT OT / ARIN TO EDUCATE ON PARKINSONS SELF MANAGEMENT [code = AGENCY MAY PERFORM A RESUMPTION OF CARE VISIT FOLLOWING ANY HOSPITAL ADMISSION. OT TO EVALUATE, OBSERVE / ASSESS, AND MONITOR, ARIN TO OBSERVE AND MONITOR, PROVIDE SKILLED THERAPEUTIC INTERVENTION, ACTIVITY, EDUCATION, AND TRAINING TO ADDRESS SAFETY AND INDEPENDENCE OF ADLS AND FUNCTIONAL TRANSFERS IN HOME ENVRIONMENT. BATHING/SHOWERING (OT/ARIN) ACTIVITIES OF DAILY LIVING (OT/LIFESTYLE COORDINATOR) TOILET TRANSFER (OT/LIFESTYLE COORDINATOR) BATH/SHOWER TRANSFER (OT/ARIN) THERAPEUTIC EXERCISE (OT/LIFESTYLE COORDINATOR) OT / ARIN TO EDUCATE ON DIABETES SELF- MANAGEMENT OT/LIFESTYLE COORDINATOR TO MONITOR AND EDUCATE ON OXYGEN SATURATION DURING ADLS/IADLS, NOTIFY PHYSICIAN AND/OR THE RN CLINICAL HEAD WAITER/WAITRESS BANQUET FOR PHYSICIAN NOTIFICATION AND IF O2 SATS BELOW 90% AFTER 10 MIN OF REST. OT/LIFESTYLE COORDINATOR MAY EDUCATE ON PAIN MANAGEMENT CLINICALLY INDICATED, INCLUDING NON-PHARMACOLOGICAL PAIN REDUCTION TECHNIQUES OT / LIFESTYLE COORDINATOR TO IDENTIFY FALL RISK FACTORS; EDUCATE THE PATIENT/CAREGIVER ON WAYS TO REDUCE FALL RISK FACTORS AND ESTABLISH HOME EXERCISE PROGRAM TO MINIMIZE FALL RISK. MAY TEACH THE PATIENT FLOOR RECOVERY WHEN CLINICALLY APPROPRIATE. OT/ARIN TO EDUCATE ON HEART FAILURE SELF-MANAGEMENT OT/ARIN TO EDUCATE ON HYPERTENSION SELF-MANAGEMENT OT / ARIN TO EDUCATE ON PARKINSONS SELF MANAGEMENT] Goal [...] End Date/Time Encounter Type Admission Type Attending [facility] Care Facility Care Department Encounter ID Discharge Date Discharge Status Discharge Condition Discharge Reason Percent Goals Met 2025-04-19 00:00:00 2025-06-17 00:00:00 Outpatient ASHOK CASTELLANOS [facility] [id number]
--- OUTSIDE RECORDS SUMMARY | 2025-05-22 07:35 | XMS_ITS | Encounter Summary ---
Author Organization [facility] Address [address] [place] [address] Phone Care Team Providers Care Poultry Farm Worker Name Role Phone Otf Young MD Primary Care Provi patricia Fede Mills Primary Care Provider Lynda Silvestre MD Unavailable [phone] Victor Manuel Real MD Unavailable [phone] Nazario OsmanM Unavailable [phone] Concha Prakash RN Unavailable [phone] Concha Prakash RN Unavailable [phone] Encounter Details Date Type Department Care Team (Late st Contact Info) Description 02/04/2018 Orders Only [facility] ProviderCarole MD [address] [place] [address] Social History Tobacco Use Types Packs/Day Years Used Date Smoking Tobacco: Never Smokeless Tobacco: Never Alcohol Use Standard Drinks/Week Comments No 0 (1 standard drink = 0.6 oz pur e alcohol) Comments No Sex and Gender Information Value Date Recorded Sex Assigned at Not on file 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 Gender Identity Not on file Sexual Orientation [...] documented as of this encounter Care Teams Poultry Farm Worker Relationship Specialty Start Date End Date Otf Young MD PCP - General 02/02/17 07/03/22 Fede Mills PA [address] [facility] [address] [place] [address] PCP - General Internal Medicine 07/04/22 Lynda Silvestre MD [address] [place] [address] Referring Physician Ophthalmology 11/13/22 Victor Manuel Real MD [address] [facility] [address] [place] [address] Consulting Physician Neurology 01/18/24 Nazario Osman DPM [address] [place] [address] Consulting Physician Orthotics 01/18/24 Concha Prakash, LAMINE [address] [place] [address] [address] [place] [address] Liquor Runner 04/13/25 04/29/25 Concha Prakash, LAMINE [address] [facility] [address] [place] [address] Liquor Runner 05/06/25 documented as of this encounter
--- OUTSIDE RECORDS SUMMARY | 2025-05-22 07:35 | XMS_ITS | Encounter Summary ---
Author Organization [facility] Address [address] [address] Care Team Providers Care Geotechnical Laboratory Technician Name Role Phone Otf Young MD Primary Care Provi patricia Otf Young MD Primary Care Provi patricia Otf Young MD Primary Care Provi patricia Otf Young MD Primary Care Provi patricia Otf Young MD Primary Care Provi patricia Otf Young MD Primary Care Provi patricia Fede Mills Primary Care Provider Lynda Silvestre MD Unavailable [phone] Victor Manuel Real MD Unavailable [phone] Nazario Osman DPM Unavailable [phone] Concha Prakash RN Unavailable [phone] Concha Prakash RN Unavailable [phone] Encounter Details Date Type Department Care Team (Late st Contact Info) Description 06/25/2007 Orders Only [facility] [address] [place] [address] Otf Young MD [address] [facility] [place] [address] Social History Tobacco Use Types Packs/Day Years Used Date Smoking Tobacco: Never Assessed Comments Unknown Sex and Gender Information Value Date Recorded Sex Assigned at Not on file 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 Gender Identity Not on file Sexual Orientation [...] documented as of this encounter Care Teams Geotechnical Laboratory Technician Relationship Specialty Start Date End Date Otf Young MD PCP - General 02/02/17 07/03/22 Otf Young MD PCP - General 01/08/17 02/01/17 Otf Young MD PCP - General 10/06/13 01/07/17 Otf Young MD PCP - General 09/24/07 10/05/13 Otf Young MD PCP - General 08/22/07 09/23/07 Otf Young MD PCP - General 05/29/07 08/21/07 Fede Mills PA [address] [place] [address] [address] [place] [address] PCP - General Internal Medicine 07/04/22 Lynda Silvestre MD [address] [place] [address] Referring Physician Ophthalmology 11/13/22 Victor Manuel Real MD [address] [place] [address] [address] [place] [address] Consulting Physician Neurology 01/18/24 Nazario Osman DPM [address] [place] [address] Consulting Physician Orthotics 01/18/24 Concha Prakash RN [address] [place] [address] [address] [place] [address] Burrer Operator 04/13/25 04/29/25 Concha Prakash RN [address] [place] [address] [address] [place] [address] Burrer Operator 05/06/25 documented as of this encounter
--- OUTSIDE RECORDS SUMMARY | 2025-05-22 07:35 | XMS_ITS | Encounter Summary ---
Author Organization [facility] Address [address] [place] [address] Care Team Providers Care Spice Fumigator Name Role Phone Fede Mills Primary Care Provider Lynda Silvestre MD Unavailable [phone] Victor Manuel Real MD Unavailable [phone] Nazario Osman DPM Unavailable [phone] Concha Prakash RN Unavailable [phone] Concha Prakash RN Unavailable [phone] Reason for Visit * Reason Onset Date Comments Medical Question/Miscellaneous 04/20/2025 Encounter Details Date Type Department Care Team (Late st Contact Info) Description 04/20/2025 Telephone [facility] Primary Care at [address] [place] [address] Fede Mills PA [address] [place] [address] [address] [place] [address] Medical Question/Miscellaneous Social History Tobacco Use Types Packs/Day Years Used Date Smoking Tobacco: Never Smokeless Tobacco: Never Alcohol Use Standard Drinks/Week Comments No 0 (1 standard drink = 0.6 oz pur e alcohol) [facility] Utilities Answer Date Recorded In the past 12 months has th e electric, gas, oil, or water [employer] threatened to shut off services in your [...] often do you attend chur ch or orthodoxy services? Never 05/07/2025 Do you belong to any clubs o r organizations such as yazdanism groups, unions, fraternal or athletic groups, or [...] place to sleep or slept in a fci (including now)? No 11/23/2023 Housing Stability Vital Sign Answer Ethan e Recorded In the last 12 months, was t here a time when you were not able to pay the mortgage or rent on time? No 05/07/2025 In the past 12 months, how m any times have you moved where you were living? 0 05/07/2025 At any time in the past 12 m [facility], were you homeless or living in a fci (including now)? 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 They can change the parameter to let me know if it goes below 50 * Telephone Encounter - Daniela Michel MA - 04/20/2025 8:30 AM CDT Medical Question/Miscellaneous Caller???s Concern: Sara from [facility] saw the patient this morning and [...] on filedocumented in this encounter Care Teams Spice Fumigator Relationship Specialty Start Date End Date Fede Mills PA [address] [place] [address] [place] [address] PCP - General Internal Medicine 07/04/22 Lynda Silvestre MD [address] [place] [address] Referring Physician Ophthalmology 11/13/22 Victor Manuel Real MD [address] [place] [address] [address] [place] [address] Consulting Physician Neurology 01/18/24 Nazario Osman DPM [address] [place] [address] Consulting Physician Orthotics 01/18/24 Concha Prakash RN [address] [place] [address] [address] [place], [place] [id number] Drawer Waxer 04/13/25 04/29/25 Concha Prakash RN [address] [place] [address] [address] [place] [address] Drawer Waxer 05/06/25 documented as of this encounter
--- OUTSIDE RECORDS SUMMARY | 2025-05-22 07:35 | XMS_ITS ---
Author Name Auto Generated, Auto Generated Organization [facility] Address [address] [place] [address] Phone [phone] Care Team Providers Care Machine Lacer Name Role Phone Meredith Nath Unavailable MichaelSarah torres Unavailable [phone] Functional Status No Results Mental Status No Results Allergies and Intolerances Name Onset Date Reaction Severity Sulfa (Sulfonamide Antibiotics) (Allergy) Sun 00:45:00 EST 2023 penicillin (Allergy) SunNov 26 00:45:00 EST codeine (Allergy) SunNov 26 00:45:00 EST 2023 Encounters Program Name Primary Diagnosis Admission Date/Time Dis charge Date/Time Program Clerk Care Facility [facility] SunAug 26 12:20:00 EDT [...] EDT 2023Sep 26 01:00:00 EST 2023 artificial tears(nazwmha-zuxhszng-wx ycern) 0.1 %-0.3 %-0.2 % eye drops [...] 25:00:00 2023Dec 16 01:00:00 EST 2023 artificial tears(xiqseji-oiajhcnj-id ycern) 0.1 %-0.3 %-0.2 % eye drops [...] 2023 * End Date: * Text: * 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 (12)* Code: * Start Date: SunSep 03 00:00:00 EDT 2023 * End Date: * Text: [id number] Nicolle receives a therapeutic diet. (12) * [...] best of his or her ability. * RAMOSSocial Laura Valverde has family/friends who are supportive.* Code: [...] Date: * Text: REECES_Social ServicesKandy Valverde has a diagnosis of dementia. [...] * End Date: * Text: LSS_Falls - Nciolle is at risk for falls/injury asevidenced by: [...] r/t diagnosis of :__DM type 2 . Vital Signs Vital Sign Measurement Date Systolic Blood Pressure 130.00 mm[Hg] SunSep 26 09:51:35 EST 2023 Diastolic Blood Pressure 53.00 mm[Hg] SunSep 26 09:51:35 EST 2023 Systolic Blood Pressure 130.00 mm[Hg] SunSep 26 09:51:35 EST 2023 Diastolic Blood Pressure 53.00 mm[Hg] SunSep 26 09:51:35 2023 Systolic Blood Pressure 130.00 mm[Hg] SunSep [...] Rate 62.00 /min SunSep 25 22:14 :49 2023 Body temperature 98.20 [degF] SunSep 25 [...] :22 EDT 2023 Heart Rate 58.00 /min [place] Sep 07 00:14 :22 EDT 2023 Body temperature 98.30 [degF] SunSep 07 00:1 4:22 EDT 2023 Respiratory rate 18.00 /min [place] Sep 07 00:1 4:22 EDT 2023 Systolic Blood Pressure 117.00 mm[Hg] [facility] Sep 06 21:31:20 EDT 2023 Diastolic Blood Pressure 51.00 mm[Hg] SunSep 06 21:31:20 EDT 4 Systolic Blood Pressure 117.00 mm[Hg] [facility] Sep 06 21:31:20 EDT 2023 Diastolic Blood Pressure 51.00 mm[Hg] SunSep 06 21:31:20 EDT 2023 Heart Rate 58.00 /min SunSep 06 21:31 :20 EDT 4 Systolic Blood Pressure 146.00 mm[Hg] [facility] Sep 06 09:08:08 EDT 4 [...] EDT 4 Diastolic Blood Pressure 62.00 mm[Hg] [facility] Sep 06 09:08:08 EDT 2023 [...] EDT 2023 Systolic Blood Pressure 128.00 mm[Hg] [facility] Oct 29 09:35:24 EDT 2023 Diastolic Blood Pressure 59.00 mm[Hg] [facility] Oct 29 09:35:24 EDT 2023 Systolic Blood Pressure 128.00 mm[Hg] [facility] Oct 29 09:35:24 EDT 2023 Diastolic Blood Pressure 59.00 mm[Hg] [facility] Oct 29 09:35:24 EDT 2023 Heart Rate 66.00 /min [facility] Oct 29 09:35 :24 EDT 2023 Systolic Blood Pressure 128.00 mm[Hg] [facility] Oct 29 08:38:54 EDT 2023 Diastolic Blood Pressure 59.00 mm[Hg] [facility] Oct 29 08:38:54 EDT 2023 Pulse Oximetry 95.00 % [facility] Oct 08:38 :54 EDT 2023 Heart Rate 66.00 /min [facility] Oct 08:38 :54 EDT 2023 Body temperature 98.40 [degF] [facility] Oct 08:3 8:54 EDT 4 Respiratory rate 18.00 /min [facility] Oct 08:3 8:54 EDT 4 Systolic Blood Pressure 120.00 mm[Hg] [facility] Oct 28 23:58:41 EDT 2023 Diastolic Blood Pressure 54.00 mm[Hg] [facility] Oct 28 23:58:41 EDT 2023 Pulse [...]
--- OUTSIDE RECORDS SUMMARY | 2025-05-22 07:36 | XMS_ITS | Clinical Summary ---
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 2023-11 00:00: [...] 180 mg tablet 12-06 00:00: 00 Yes [id number] ALLERGIES 1 tablet DAILY 1 tablet DAILY (route: oral) Med Classific ation: Respirato ry Therapy Agents amitriptyli ne 25 mg tablet 12-06 00:00: 00 05-22 23:59 :00 No [id number] SLEEP 2 tablet BEDTIME 2 tablet BEDTIME (route: oral) Med Classific ation: Central Nervous System Agents aspirin 81 mg tablet,louie yed release 2023-11 00:00: 00 Yes [id number] BLOOD THINNER 1 tablet DAILY 1 tablet DAILY (route: oral) Med Classific ation: Hematolog ical Agents levothyroxi ne 25 mcg tablet 2023-11 00:00: 00 Yes [id number] THYROID 1 tablet BEFORE BREAKFAST 1 tablet BEFORE BREAKFAST (route: oral) Med Classific ation: Endocrine Multivitami n 50 Plus tablet 2023-11 00:00: 00 Yes [id number] VITAMIN 1 tablet DAILY 1 tablet DAILY (route: oral) Med Classific ation: Electroly te Balance-N utritiona l Products simvastatin 10 mg tablet 12-06 00:00: 00 Yes [id number] CHOLESTEROL 1 tablet BEDTIME 1 tablet BEDTIME (route: oral) Med Classific ation: Cardiovas cular Therapy Agents spironolact one 25 mg tablet 12-06 00:00: 00 05-14 00:00 :00 No [id number] DIURETIC 1 tablet DAILY 1 tablet DAILY (route: oral) Med Classific ation: Cardiovas cular Therapy Agents Systane (propylene glycol) 0.4 %-0.3 % eye drops 12-06 00:00: 00 04-19 00:00 :00 No [id number] DRY EYES 1 drops NEEDED 1 drops NEEDED (route: ophthalmic (eye)) Med Classific ation: Ophthalmi c Agents Tylenol Extra Strength 500 mg tablet 12-06 00:00: 00 04-19 00:00 :00 No [id number] PAIN 1 tablet NEEDED 1 tablet NEEDED (route: oral) Med Classific ation: Analgesic , Anti-infl ammatory or Antipyret ic Flonase Allergy Relief 50 mcg/actuati on nasal spray,suspe nsion 12-06 00:00: 00 Yes [id number] ALLERGIES 2 spray DAILY 2 spray DAILY (route: nasal) Med Classific ation: Respirato ry Therapy Agents Metamucil 3.4 gram/5.4 gram oral powder 2023-11 00:00: 00 Yes [id number] CONSTIPATIO N Per instruc tions DAILY Per instructio ns DAILY (route: oral) Med Classific ation: Gastroint estinal Therapy Agents Emgality 120 mg/mL subcutaneou s syringe 2023-11 00:00: 00 Yes [id number] HEADACHE 120 mg MONTHLY 120 mg MONTHLY (route: subcutaneo us) Med Classific ation: Central Nervous System Agents amlodipine 2.5 mg tablet 2023-11 00:00: 00 04-19 00:00 :00 No [id number] BLOOD PRESSURE 1 tablet DAILY 1 tablet DAILY (route: oral) Med Classific ation: Cardiovas cular Therapy Agents carvedilol 6.25 mg tablet 05-14 00:00: 00 04-19 23:59 :00 No [id number] BLOOD PRESSURE 1 tablet 2 TIMES DAILY 1 tablet 2 TIMES DAILY (route: oral) Med Classific ation: Cardiovas cular Therapy Agents furosemide 40 mg tablet 05-14 00:00: 00 04-19 23:59 :00 No [id number] FLUID RETENTION 1 tablet DAILY 1 tablet DAILY (route: oral) Med Classific ation: Cardiovas cular Therapy Agents lidocaine 5 % topical patch 10 00:00: 00 04-19 00:00 :00 No [id number] PAIN 1 adhesiv e patch, medicat ed 2 TIMES DAILY 1 adhesive patch, medicated 2 TIMES DAILY (route: topical) Med Classific ation: Dermatolo gical midodrine 5 mg tablet 2023-11 00:00: 00 04-19 00:00 :00 No [id number] HYPOTENSION 1 tablet 2 TIMES DAILY 1 tablet 2 TIMES DAILY (route: oral) Med Classific ation: Cardiovas cular Therapy Agents Santyl 250 unit/gram topical ointment 08-01 00:00: 00 09-28 00:00 :00 No [id number] WOUND Per instruc tions DAILY Per instructio ns DAILY (route: topical) Med Classific ation: Dermatolo gical acetaminoph en 500 mg capsule 2023-11 00:00: 00 Yes [id number] PAIN 1 capsule EVERY 4 HOURS 1 capsule EVERY 4 HOURS (route: oral) Med Classific ation: Analgesic , Anti-infl ammatory or Antipyret ic Artificial Tears (PF) 0.1 %-0.3 % drops in a dropperette 2023-11 00:00: 00 Yes [id number] EYES 2 dropper ette 2 TIMES DAILY 2 dropperett e 2 TIMES DAILY (route: ophthalmic (eye)) Med Classific ation: Ophthalmi c Agents carbamazepi ne 100 mg chewable tablet 2023-11 00:00: 00 Yes [id number] SEIZURES 1 tablet DAILY 1 tablet DAILY (route: oral) Med Classific ation: Central Nervous System Agents carbidopa 25 mg-levodopa 100 mg tablet 2023-11 00:00: 00 Yes [id number] PARKINSON'S 1 tablet 3 TIMES DAILY 1 tablet 3 TIMES DAILY (route: oral) Med Classific ation: Central Nervous System Agents fexofenadin e 60 mg tablet 2023-11 00:00: 00 04-19 23:59 :00 No [id number] ALLERGIES 1 tablet DAILY 1 tablet DAILY (route: oral) Med Classific ation: Respirato ry Therapy Agents Miralax 17 gram oral powder packet 2023-11 00:00: 00 Yes [id number] CONSTIPATIO N 1 packet DAILY 1 packet DAILY (route: oral) Med Classific ation: Gastroint estinal Therapy Agents ciprofloxac in 500 mg tablet 2023-11 00:00: 00 10-14 23:59 :00 No [id number] ANTIBIOTICS 1 tablet 2 TIMES DAILY 1 tablet 2 TIMES DAILY (route: oral) Med Classific ation: Anti-Infe ctive Agents ciprofloxac in 500 mg tablet 2023-11 00:00: 00 11-24 00:00 :00 No [id number] UTI 1 tablet 2 TIMES DAILY 1 tablet 2 TIMES DAILY (route: oral) Med Classific ation: Anti-Infe ctive Agents Allergy Relief (fexofenadi ne) 180 mg tablet 04-19 00:00: 00 Yes [id number] ALLERGIES ... 1 tablet DAILY 1 tablet DAILY (route: oral) Med Classific ation: Respirato ry Therapy Agents amlodipine 5 mg tablet 04-19 00:00: 00 Yes [id number] HIGH BLOOD PRESSURE 1 tablet DAILY 1 [...] TO EVALUATE, OBSERVE / ASSESS, AND MONITOR, CLIPPER OPERATOR TO OBSERVE AND MONITOR, PROVIDE SKILLED THERAPEUTIC INTERVENTION, ACTIVITY, EDUCATION, AND TRAINING TO ADDRESS; [code = AGENCY MAY PERFORM A RESUMPTION OF CARE VISIT FOLLOWING ANY HOSPITAL ADMISSION. PT TO EVALUATE, OBSERVE / ASSESS, AND MONITOR, CLIPPER OPERATOR TO OBSERVE AND MONITOR, PROVIDE SKILLED THERAPEUTIC INTERVENTION, ACTIVITY, EDUCATION, AND TRAINING TO ADDRESS;] Future Scheduled Test BED MOBILI TY (PT/CLIPPER OPERATOR) [code = BED MOBILITY (PT/CLIPPER OPERATOR)] Future Scheduled Test SIT TO/FRO M STAND TRANSFERS (PT/CLIPPER OPERATOR) [code = SIT TO/FROM STAND TRANSFERS (PT/CLIPPER OPERATOR)] Future Scheduled Test PT/CLIPPER OPERATOR TO PROVIDE GAIT TRAINING FOR IMPROVED MOBILITY AND /OR TO NORMALIZE GAIT PATTERN [code = PT/CLIPPER OPERATOR TO PROVIDE GAIT TRAINING FOR IMPROVED MOBILITY AND /OR TO NORMALIZE GAIT PATTERN] Future Scheduled Test NEUROMUSCU LAR RE-EDUCATION / BALANCE / POSTURAL CONTROL (PT) [code = NEUROMUSCULAR RE-EDUCATION / BALANCE / POSTURAL CONTROL (PT)] Future Scheduled Test THERAPEUTI C EXERCISES AND ESTABLISHING A HOME EXERCISE PROGRAM (PT/CLIPPER OPERATOR) [code = THERAPEUTIC EXERCISES AND ESTABLISHING A HOME EXERCISE PROGRAM (PT/CLIPPER OPERATOR)] Future Scheduled Test PT/CLIPPER OPERATOR TO IDENTIFY FALL RISK FACTORS; EDUCATE THE PATIENT/CAREGIVER ON WAYS TO REDUCE FALL RISK FACTORS AND ESTABLISH HOME EXERCISE PROGRAM TO MINIMIZE FALL RISK. MAY TEACH THE PATIENT FLOOR RECOVERY WHEN CLINICALLY APPROPRIATE [code = PT/CLIPPER OPERATOR TO IDENTIFY FALL RISK FACTORS; EDUCATE THE PATIENT/CAREGIVER ON WAYS TO REDUCE FALL RISK FACTORS AND ESTABLISH HOME EXERCISE PROGRAM TO MINIMIZE FALL RISK. MAY TEACH THE PATIENT FLOOR RECOVERY WHEN CLINICALLY APPROPRIATE] Future Scheduled Test PT / CLIPPER OPERATOR T O EDUCATE ON HYPERTENSION SELF-MANAGEMENT [code = PT / CLIPPER OPERATOR TO EDUCATE ON HYPERTENSION SELF-MANAGEMENT] Future Scheduled Test PT / CLIPPER OPERATOR T O EDUCATE ON HEART FAILURE SELF-MANAGEMENT [code = PT / CLIPPER OPERATOR TO EDUCATE ON HEART FAILURE SELF-MANAGEMENT] Future Scheduled Test PT TO ASSE SS / CLIPPER OPERATOR TO MONITOR FOR HEART FAILURE EXACERBATION AND RECORD PATIENT REPORTED WEIGHT, AND NOTIFY THE PHYSICIAN AND/OR THE RN CLINICAL EGYPTOLOGIST FOR PHYSICIAN NOTIFICATION OF HF EXACERBATION (2LB WEIGHT GAIN IN 1 DAY, 5LBS IN A WEEK OR 5 LBS OVER BASELINE; INCREASED SOB, EDEMA, NEEDING MORE PILLOWS AT NIGHT, CRACKLES IN BASIS OF THE LUNGS OR PMI SHIFT) [code = PT TO ASSESS / CLIPPER OPERATOR TO MONITOR FOR HEART FAILURE EXACERBATION AND RECORD PATIENT REPORTED WEIGHT, AND NOTIFY THE PHYSICIAN AND/OR THE RN CLINICAL EGYPTOLOGIST FOR PHYSICIAN NOTIFICATION OF HF EXACERBATION (2LB [...] AND FUNCTIONAL TRANSFERS IN HOME ENVRIONMENT. BATHING/SHOWERING (OT/GREY STOCK RECORDER) ACTIVITIES OF DAILY LIVING (OT/GREY STOCK RECORDER) TOILET TRANSFER (OT/GREY STOCK RECORDER) BATH/SHOWER TRANSFER (OT/ARIN) THERAPEUTIC EXERCISE (OT/ARIN) OT / GREY STOCK RECORDER TO EDUCATE ON DIABETES SELF- MANAGEMENT OT/GREY STOCK RECORDER TO MONITOR AND EDUCATE ON OXYGEN SATURATION DURING ADLS/IADLS, NOTIFY PHYSICIAN AND/OR THE RN CLINICAL EGYPTOLOGIST FOR PHYSICIAN NOTIFICATION AND IF O2 SATS BELOW 90% AFTER 10 MIN OF REST. OT/ARIN MAY EDUCATE ON PAIN MANAGEMENT CLINICALLY INDICATED, INCLUDING NON-PHARMACOLOGICAL PAIN REDUCTION TECHNIQUES OT / GREY STOCK RECORDER TO IDENTIFY FALL RISK FACTORS; EDUCATE THE PATIENT/CAREGIVER ON WAYS TO REDUCE FALL RISK FACTORS AND ESTABLISH HOME EXERCISE PROGRAM TO MINIMIZE FALL RISK. MAY TEACH THE PATIENT FLOOR RECOVERY WHEN CLINICALLY APPROPRIATE. OT/GREY STOCK RECORDER TO EDUCATE ON HEART FAILURE SELF-MANAGEMENT OT/GREY STOCK RECORDER TO EDUCATE ON HYPERTENSION SELF-MANAGEMENT OT / [...] ENVRIONMENT. BATHING/SHOWERING (OT/ARIN) ACTIVITIES OF DAILY LIVING (OT/GREY STOCK RECORDER) TOILET TRANSFER (OT/GREY STOCK RECORDER) BATH/SHOWER TRANSFER (OT/ARIN) THERAPEUTIC EXERCISE (OT/GREY STOCK RECORDER) OT / ARIN TO EDUCATE ON DIABETES SELF- MANAGEMENT OT/GREY STOCK RECORDER TO MONITOR AND EDUCATE ON OXYGEN SATURATION DURING ADLS/IADLS, NOTIFY PHYSICIAN AND/OR THE RN CLINICAL EGYPTOLOGIST FOR PHYSICIAN NOTIFICATION AND IF O2 SATS BELOW 90% AFTER 10 MIN OF REST. OT/GREY STOCK RECORDER MAY EDUCATE ON PAIN MANAGEMENT CLINICALLY INDICATED, INCLUDING NON-PHARMACOLOGICAL PAIN REDUCTION TECHNIQUES OT / GREY STOCK RECORDER TO IDENTIFY FALL RISK FACTORS; EDUCATE THE [...] End Date/Time Encounter Type Admission Type Attending [facility] Care Facility Care Department Encounter ID Discharge Date Discharge Status Discharge Condition Discharge Reason Percent Goals Met 2025-04-19 00:00:00 2025-06-17 00:00:00 Outpatient ASHOK CASTELLANOS [facility] [id number] .00
[2025-05-22 07:40] LABS: Hematocrit 37.5 % (37.0-47.0); Hemoglobin 11.9 g/dL (12.0-15.0); Immature Granulocyte Percent A 1.4 % (0-0.5); Lymphocytes Absolute Auto 1.31 K/mm3 (0.9-3.2); Mean Corpuscular HGB Conc 31.7 g/dl (32-36); Mean Corpuscular Hemoglobin 27.6 pg (26-34); Mean Corpuscular Volume 87.0 fl (80-100); Nucleated Red Blood Cells Absolute Auto 0.000 K/mm3 (0.0-0.012); Nucleated Red Blood Cells Perc 0.0 % (0.0-0.2); Platelet Count Result 248 k/mm3 (150-375); Red Blood Count 4.31 M/mm3 (4.2-5.4); White Blood Count 7.1 K/mm3 (4.5-10.0)
--- NOTE | 2025-05-22 08:07 | ED.GENADULT ---
HPI - General Adult General Chief complaint: Fall Stated complaint: fall Time Seen by Provider: 05/22/25 07:27 History of Present Illness HPI narrative: This is an 89-year-old female presenting after a syncopal event. Patient says that she was on the toilet having a bowel movement when the next thing she remembers is waking up on the floor. She has a cut to her forehead. She does not any pain anywhere outside of her forehead. She says that it feels like she has burning when she urinates. She denies fevers chills chest pain breathing abdominal pain nausea vomiting or diarrhea. Related Data Allergies Allergy/AdvReac Type Severity Reaction Status Date / Time codeine Allergy Unknown Unknown Verified 05/22/25 07:28 Penicillins Allergy Unknown Unknown Verified 05/22/25 07:28 Sulfa (Sulfonamide Allergy Unknown Unknown Verified 05/22/25 07:28 Antibiotics) Exam Narrative: APPEARANCE: No apparent distress. Head: 1.5 cm shallow laceration to the forehead EYES: EOMI, NOSE: Atraumatic NECK: Trachea midline RESPIRATORY: No increased rate of breathing clear to auscultation CARDIOVASCULAR: RRR, no peripheral edema ABDOMINAL: Non-distended soft nontender MUSCULOSKELETAl: Head to toe trauma exam performed with no areas of pain tenderness or deformity NEURO: Alert. Moving 4/4 extremities SKIN:: Warm, dry. Normal color PSYCHIATRIC: Normal affect Course Vital Signs Vital signs: Vital Signs Temperature 97.2 F L 05/22/25 07:12 Pulse Rate 60 05/22/25 07:12 Respiratory Rate 20 05/22/25 07:12 Blood Pressure 175/77 H 05/22/25 07:12 Pulse Oximetry 98 05/22/25 07:12 Oxygen Delivery Room Air 05/22/25 07:12 Temperature 97.2 F L 05/22/25 07:12 Pulse Rate 67 05/22/25 13:26 Respiratory Rate 20 05/22/25 13:26 Blood Pressure 167/58 H 05/22/25 13:26 Pulse Oximetry 98 05/22/25 13:26 Oxygen Delivery Room Air 05/22/25 07:12 Procedures Laceration Laceration 1: Date: 05/22/25 Site: face Size (cm): 1.5 Description: linear Depth: simple, single layer Pre-repair: irrigated, irrigated extensively and deep structures intact ====== Skin Level ====== Skin layer closed with: dermabond ====== Subcutaneous Layer ====== ====== Muscle Layer ====== ====== Tendon Layer ====== Medical Decision Making MDM Narrative Medical decision making narrative: -Course: 89-year-old female presenting after syncopal event while having a bowel movement. 1.5 cm laceration repaired on forehead with Dermabond. CT head and C-spine negative for acute injuries. Laboratory studies within normal limits. Patient did report some dysuria and her urine was indeterminate. She will be treated with a short course of Keflex. Patient discharged with return precautions. -DDX includes but is not limited to: Vasovagal syncope, cardiac syncope, dehydration, UTI sepsis pneumonia Independent EKG interpretation: Rhythm [sinus], Rate [60], [place] -[normal], [place] -[normal], QRS [narrow], QTC [normal], T waves -[negative for concerning inversions], ST Segments - [Negative for concerning elevations] Final interpretations: [Normal Sinus Rhythm] Vital Signs Vital Signs: Vital Signs Temperature 97.2 F L 05/22/25 07:12 Pulse Rate 60 05/22/25 07:12 Respiratory Rate 20 05/22/25 07:12 Blood Pressure 175/77 H 05/22/25 07:12 Pulse Oximetry 98 05/22/25 07:12 Oxygen Delivery Room Air 05/22/25 07:12 Temperature 97.2 F L 05/22/25 07:12 Pulse Rate 67 05/22/25 13:26 Respiratory Rate 20 05/22/25 13:26 Blood Pressure 167/58 H 05/22/25 13:26 Pulse Oximetry 98 05/22/25 13:26 Oxygen Delivery Room Air 05/22/25 07:12 Lab Data 05/22/25 07:30 05/22/25 07:30 Labs: Lab Results 05/22/25 05/22/25 05/22/25 Range/Units 07:30 08:20 08:38 WBC 7.1 (4.5-10.0) K/mm3 RBC 4.31 (4.2-5.4) M/mm3 Hgb 11.9 L (12.0-15.0) g/dL Hct 37.5 (37.0-47.0) % MCV 87.0 (80-100) fl MCH 27.6 (26-34) pg MCHC 31.7 L (32-36) g/dl RDW 15.2 H (11.5-14.5) % Plt Count 248 (150-375) k/mm3 MPV 9.3 (7.4-10.4) fl Immature Gran % (Auto) 1.4 H (0-0.5) % Neut % (Auto) 70.1 (45.5-73.1) % Lymph % (Auto) 18.6 (18.3-44.2) % [place] % (Auto) 9.4 H (2.6-8.5) % Eos % (Auto) 0.4 (0-4.4) % Baso % (Auto) 0.1 L (0.2-1.2) % Lymph # (Auto) 1.31 (0.9-3.2) K/mm3 [place] # (Auto) 0.7 H (0.1-0.6) K/mm3 Eos # (Auto) 0.0 (0-0.3) K/mm3 Baso # (Auto) 0.0 (0.0-0.1) K/mm3 Abs Immat Gran (auto) 0.10 H (0.00-0.031) K/mm3 Absolute Neuts (auto) 4.9 (1.3-6.7) K/mm3 Absolute Nucleated RBC 0.000 (0.0-0.012) K/mm3 Nucleated RBC % 0.0 (0.0-0.2) % Sodium 139 (137-145) mmol/L Potassium 4.5 (3.4-5.0) mmol/L Chloride 107 (98-107) mmol/L Carbon Dioxide 26 (22-30) mmol/L Anion Gap 6 (4-12) mmol/L BUN 17 D (7-17) mg/dL Creatinine 0.92 (0.7-1.0) mg/dL Estim Creat Clear Calc 33 ml/min Estimated GFR 57 L (59 - ) Glucose 93 (65-110) mg/dL Lactic Acid (0.7-2.0) mmol/L Calcium 9.5 (8.4-10.2) mg/dL Total Bilirubin 0.4 (0.2-1.3) mg/dL AST 42 H (14-36) U/L ALT 9 (6-35) U/L Alkaline Phosphatase 79 (38-126) U/L Troponin I 0.017 (0.000-0.034) ng/mL NT-Pro-B Natriuret Pep 250 H (19.9-100) pg/mL Total Protein 6.8 (6.3-8.2) g/dL Albumin 3.4 L (3.5-5.1) g/dL Urine Color Yellow (Yellow) Urine Appearance Cloudy H (Clear) Urine pH 6.0 (5.0-9.0) Ur Specific [place] 1.018 (1.001-1.035) Urine Protein 2+ H (Negative) mg/dL Urine Glucose (UA) Negative (Negative) mg/dL Urine Ketones Trace H (Negative) mg/dL Ur Blood (Man) Negative (Negative) Urine Nitrate Negative (Negative) Urine Bilirubin Negative (Negative) Urine Urobilinogen 1.0 (<2.0) mg/dL Add Ur Microanalysis Reviewed Leukocyte Esterase Rfl 1+ H (Negative) ANALY/UL Urine RBC 11-20 H (0-2) /hpf Urine WBC 0-5 (0-3) /hpf Ur Squamous Epith Cells Few (Few) /hpf Urine Bacteria 4+ H /hpf Urine Casts 0-2 Influenza A (RT-PCR) Negative (Negative) Influenza B (RT-PCR) Negative (Negative) RSV (RT-PCR) Negative (Negative) SARS-CoV-2 RNA (RT-PCR) Negative (Negative) 05/22/25 05/22/25 Range/Units 09:06 10:45 WBC (4.5-10.0) K/mm3 RBC (4.2-5.4) M/mm3 Hgb (12.0-15.0) g/dL Hct (37.0-47.0) % MCV (80-100) fl MCH (26-34) pg MCHC (32-36) g/dl RDW (11.5-14.5) % Plt Count (150-375) k/mm3 MPV (7.4-10.4) fl Immature Gran % (Auto) (0-0.5) % Neut % (Auto) (45.5-73.1) % Lymph % (Auto) (18.3-44.2) % [place] % (Auto) (2.6-8.5) % Eos % (Auto) (0-4.4) % Baso % (Auto) (0.2-1.2) % Lymph # (Auto) (0.9-3.2) K/mm3 [place] # (Auto) (0.1-0.6) K/mm3 Eos # (Auto) (0-0.3) K/mm3 Baso # (Auto) (0.0-0.1) K/mm3 Abs Immat Gran (auto) (0.00-0.031) K/mm3 Absolute Neuts (auto) (1.3-6.7) K/mm3 Absolute Nucleated RBC (0.0-0.012) K/mm3 Nucleated RBC % (0.0-0.2) % Sodium (137-145) mmol/L Potassium (3.4-5.0) mmol/L Chloride (98-107) mmol/L Carbon Dioxide (22-30) mmol/L Anion Gap (4-12) mmol/L BUN (7-17) mg/dL Creatinine (0.7-1.0) mg/dL Estim Creat Clear Calc ml/min Estimated GFR (59 - ) Glucose (65-110) mg/dL Lactic Acid 0.8 (0.7-2.0) mmol/L Calcium (8.4-10.2) mg/dL Total Bilirubin (0.2-1.3) mg/dL AST (14-36) U/L ALT (6-35) U/L Alkaline Phosphatase (38-126) U/L Troponin I 0.022 D (0.000-0.034) ng/mL NT-Pro-B Natriuret Pep (19.9-100) pg/mL Total Protein (6.3-8.2) g/dL Albumin (3.5-5.1) g/dL Urine Color (Yellow) Urine Appearance (Clear) Urine pH (5.0-9.0) Ur Specific [place] (1.001-1.035) Urine Protein (Negative) mg/dL Urine Glucose (UA) (Negative) mg/dL Urine Ketones (Negative) mg/dL Ur Blood (Man) (Negative) Urine Nitrate (Negative) Urine Bilirubin (Negative) Urine Urobilinogen (<2.0) mg/dL Add Ur Microanalysis Leukocyte Esterase Rfl (Negative) ANALY/UL Urine RBC (0-2) /hpf Urine WBC (0-3) /hpf Ur Squamous Epith Cells (Few) /hpf Urine Bacteria /hpf Urine Casts Influenza A (RT-PCR) (Negative) Influenza B (RT-PCR) (Negative) RSV (RT-PCR) (Negative) SARS-CoV-2 RNA (RT-PCR) (Negative) Discharge Plan Discharge Clinical Impression: Syncope, vasovagal, Forehead laceration Patient Disposition: Home Condition: Stable Instructions: Antibiotic Form, Syncope (DC) Additional Instructions: You were seen in the emergency after after a syncopal event. This is likely vasovagal due to having a bowel movement. Please take the Keflex as your urine may have been indicative of infection. If you develop any new or worsening symptoms please return to ED for re-evaluation. Patient Language: Moroccan Prescriptions: New cephalexin 500 mg capsule 500 mg PO Q12H Qty: 10 0RF Follow-up/Referrals: PHYSICIAN NOT ON STAFF,NONSTAFF [Primary Care Provider] -
[2025-05-22 08:09] LABS: Alanine Aminotransferase 9 U/L (6-35); Albumin Level 3.4 g/dL (3.5-5.1); Alkaline Phosphatase 79 U/L (38-126); Anion Gap 6 mmol/L (4-12); Aspartate Amino Transferase 42 U/L (14-36); Bilirubin,Total 0.4 mg/dL (0.2-1.3); Blood Urea Nitrogen 17 mg/dL (7-17); Calcium 9.5 mg/dL (8.4-10.2); Carbon Dioxide 26 mmol/L (22-30); Chloride 107 mmol/L (98-107); Estimated CRCL calculation 33 ml/min; Estimated Glomerular Filt Rate 57; Glucose 93 mg/dL (65-110); Potassium 4.5 mmol/L (3.4-5.0); Sodium 139 mmol/L (137-145); Total Protein 6.8 g/dL (6.3-8.2)
[2025-05-22 08:38] LABS: Add Urine Microscopic? YES; Appearance Urine Cloudy (Clear); Glucose Urine UA Negative (Negative); Leukocyte Esterase Ur 1+ LEU/UL (Negative); Need Manual Microscopic Reviewed; Nitrate Urine Negative (Negative); Non Pathogenic Casts 0-2; Specific Grav Ur 1.018 (1.001-1.035)
[2025-05-22 09:24] LABS: NT Pro B Type Natriuretic Pept 250 pg/mL (19.9-100); Troponin I 0.017 ng/mL (0.000-0.034)
--- NOTE | 2025-05-22 10:27 | ECG_ITS ---
Test Date: 2025-05-22 10:35:42 Measurements Intervals [place] Rate: 64 P: 47 [place]: 148 QRS: 4 QRSD: 66 T: 51 QT: 354 QTc: 368 Interpretive Statements SINUS RHYTHM POOR R-WAVE PROGRESSION POSSIBLE LEFT ATRIAL ENLARGEMENT [-0.1mV P-WAVE IN V1/V2] BORDERLINE ECG Compared to ECG 05/22/2025 07:20:49 NO DIFFERENCE Electronically Signed On 05-22-2025 14:18:37 CDT by Victor Manuel Acevedo M.D.
[2025-05-22 10:29] LABS: Influenza A QL RT-PCR Negative (Negative); Influenza B QL RT-PCR Negative (Negative); RSV RNA, RT-PCR Negative (Negative); SARS-CoV-2 RNA PCR Negative (Negative)
[2025-05-22 11:34] LABS: Troponin I 0.022 ng/mL (0.000-0.034)
[2025-05-22] MEDS: ACETAMINOPHEN 500 MG TABLET 1000 MG PO (13:21)
== END 2025-05-22 14:44 | disposition home or self-care (01) ==
PROVIDERS: Emergency Provider Emergency Medicine
DX: R55 Syncope and collapse (principal); S01.81XA Laceration without foreign body of other part of head, initial encounter; Z20.822 Contact with and (suspected) exposure to COVID-19; W18.11XA Fall from or off toilet without subsequent striking against object, initial encounter
CPT/HCPCS: 12011; 36415; 70450; 71045; 72125; 80053; 81001; 83605; 83880; 84484; 85025; 87637; 93005; 99284; A9270

== ENCOUNTER 2025-07-28 15:51 | Emergency (ER) | payer MEDICARE, SELFPAY ==
--- OUTSIDE RECORDS SUMMARY | 2025-07-27 04:43 | XMS_ITS ---
Author Organization [facility] Address [address] [place] [id number] Care Team Providers Care School Occupational Therapist Name Role Phone GEORGE ROMERO Primary Care Provider Allergies Allergen (clinical drug ingredient) Drug/Non Drug Allergy documented on EMR Reaction Allergy Type Onset Date Status codeine Codeine Sulfate Unknown Drug Allergy A ctive penicillin V Penicillin V Potassium Unknown Drug Allergy Active Substance with penicillin structure and antibacterial mechanism of action (substance) Penicillins Unknown Drug Allergy Active Substance with sulfonamide structure and antibacterial mechanism of action (substance) Sulfa Antibiotics Unknown Drug Allergy Active REASON FOR VISIT CHART PREP Medications Medication SIG (Take, Route, Frequency, Duration) Notes Start Date End Date Status Artificial Tears PF 0.1-0.3 % Solution 1-2 drops in each eye Ophthalmic daily As needed Active Acetaminophen 500 MG Tablet 1 tablet as needed Orally every 4 hours Active carBAMazepine 100 MG Tablet Chewable 1 tablet Orally Twice a day Active Aspirin Adult Low Dose 81 MG Tablet Delayed Release 1 tablet Orally Once a day Active Carbidopa-Levodopa 25-100 MG Tablet 1 tablet Orally 3 times a day Active Levothyroxine Sodium 25 MCG Tablet 1 tablet in the morning on an empty stomach Orally Once a day Active Fluticasone Propionate 50 MCG/ACT Suspension 2 sprays in each nostril Nasally Once a day As needed Active Metamucil 30.9 % Powder as directed Orally daily Active Fexofenadine HCl 180 MG Tablet 1 tablet Swallow whole with water; do not take with fruit juices. Orally Once a day Active Emgality 120 MG/ML Solution Prefilled Syringe 1 mL Subcutaneous montly Active MiraLax 17 GM/SCOOP Powder 1 scoop mixed with 8 ounces of fluid Orally Once a day Active Simvastatin 10 MG Tablet 1 tablet in the evening Orally Once a day Active Senna Plus 8.6-50 MG Tablet 1 tablet as needed Orally Twice a day Active Midodrine HCl 10 MG Tablet 1 tablet Oral ly 3 times a day Active Antacid 500 MG Tablet Chewable 1 tablet Orally every 6 hours Active Social History Tobacco Use: Social History Observation Description Date Details (start date - stop date) Never Smoker NA - NA Social History Tobacco Use: Social Info Question Answer Notes Tobacco Control (Standard) Tobacco use: Nonsmoker Encounters Encounter Location Date Provider Diagnosis [facility] [address] [place] [address] 07/27/2025 GEORGE ROMERO Plan Of Treatment Next Appt Details Provider Name:Nena Peace , 07/30/2025 07:15:00 AM, [address], [place], [address], Progress Notes * Nicolle HERNÁNDEZ ADOB: (89 yo F)Acc No.[id number]:07/27/2025 Patient: Nicolle ODOM Lizzie :1935 A ge:89 Y S ex:Female Address:[address] [place] [address], [place] [address] Subjective: * Chief Complaints: * C SOTO PREP * Medical History: Parkinson's disease with dyskinesia, with fluctuations Iron deficiency anemia, unspecified Hypothyroidism, unspecified Type 2 diabetes mellitus with unspecified complications Chronic migraine without aura, not intractable, without status migrainosus Dry eye syndrome of bilateral lacrimal glands Essential (primary) hypertension Chronic diastolic (congestive) heart failure Orthostatic hypotension Other seasonal allergic rhinitis Constipation, unspecified Other congenital valgus deformities of feet Bradycardia Pain, unspecified Weakness Generalized edema Unspecified fall, initial encounter Pure hypercholesterolemia Hypertensive urgency Pulmonary hypertension Chronic kidney disease, stage 3 unspecified Left-sided headache Low back pain, unspecified * Surgical History: NO PREVIOUS SURGERIES Surgical History verified. * Family History: M other: stomach cancer. S ister: lung cancer. F ather: diagnosed with Hypertension.?Family History Verified.. * Social History: T obacco Use: T obacco Control (Standard) T obacco use: N onsmoker. Social History Verified. * Medications: T akingMidodrine HCl 10 MG Tablet 1 tablet Orally 3 times a day Antacid 500 MG Tablet Chewable 1 tablet Orally every 6 hours Simvastatin 10 MG Tablet 1 tablet in the evening Orally Once a day Senna Plus 8.6-50 MG Tablet 1 tablet as needed Orally Twice a day MiraLax 17 GM/SCOOP Powder 1 scoop mixed with 8 ounces of fluid Orally Once a day Metamucil 30.9 % Powder as directed Orally daily Levothyroxine Sodium 25 MCG Tablet 1 tablet in the morning on an empty stomach Orally Once a day Fluticasone Propionate 50 MCG/ACT Suspension 2 sprays in each nostril Nasally Once a day As neededFexofenadine HCl 180 MG Tablet 1 tablet Swallow whole with water; do not take with fruit juices. Orally Once a day Emgality 120 MG/ML Solution Prefilled Syringe 1 mL Subcutaneous montly Carbidopa-Levodopa 25-100 MG Tablet 1 tablet Orally 3 times a day carBAMazepine 100 MG Tablet Chewable 1 tablet Orally Twice a day Aspirin Adult Low Dose 81 MG Tablet Delayed Release 1 tablet Orally Once a day Artificial Tears PF 0.1-0.3 % Solution 1-2 drops in each eye Ophthalmic daily As neededAcetaminophen 500 MG Tablet 1 tablet as needed Orally every 4 hours Taking Midodrine HCl 10 MG Tablet 1 tablet Orally 3 times a day Taking Antacid 500 MG Tablet Chewable 1 tablet Orally every 6 hours Taking Simvastatin 10 MG Tablet 1 tablet in the evening Orally Once a day Taking Senna Plus 8.6-50 MG Tablet 1 tablet as needed Orally Twice a day Taking MiraLax 17 GM/SCOOP Powder 1 scoop mixed with 8 ounces of fluid Orally Once a day Taking Metamucil 30.9 % Powder as directed Orally daily Taking Levothyroxine Sodium 25 MCG Tablet 1 tablet in the morning on an empty stomach Orally Once a day Taking Fluticasone Propionate 50 MCG/ACT Suspension 2 sprays in each nostril Nasally Once a day As neededTaking Fexofenadine HCl 180 MG Tablet 1 tablet Swallow whole with water; do not take with fruit juices. Orally Once a day Taking Emgality 120 MG/ML Solution Prefilled Syringe 1 mL Subcutaneous montly Taking Carbidopa-Levodopa 25-100 MG Tablet 1 tablet Orally 3 times a day Taking carBAMazepine 100 MG Tablet Chewable 1 tablet Orally Twice a day Taking Aspirin Adult Low Dose 81 MG Tablet Delayed Release 1 tablet Orally Once a day Taking Artificial Tears PF 0.1-0.3 % Solution 1-2 drops in each eye Ophthalmic daily As neededTaking Acetaminophen 500 MG Tablet 1 tablet as needed Orally every 4 hours * Allergies: C odeine SulfatePenicillin V PotassiumPenicillinsSulfa AntibioticsyesAllergies Verified. * true * Date: Generated for Samanta pate/Destiny/Justin on: 0 07/28/2025 04:21 PM CDT
[2025-07-28] VITALS (9 sets, daily range): BP systolic 123–219; BP diastolic 59–92; PULSE 53–63; RESP 15–20; TEMP 36.7; O2SAT 97–100
--- NOTE | ~2025-07-28 | CT_ITS ---
EXAMINATION: CT brain wo jeny, 07/28/2025 16:55 CDT HISTORY: CORTES, elevated bp COMPARISON: No comparisons available. Technique: Axial images obtained of the brain without contrast. One or more of the following dose reduction techniques were used: automated exposure control, adjustment of the mA and/or kV according to patient size, use of iterative reconstruction technique. Findings: No acute infarct or parenchymal hemorrhage. No abnormal mass or mass effect. No midline shift. No extra-axial fluid collections. No hydrocephalus. Mastoid air cells unremarkable. Sinuses and orbits unremarkable. No acute fracture. No significant facial or scalp soft tissue swelling evident. No radiopaque foreign body is seen. Impression: 1.No acute intracranial abnormality. Reviewed, dictated and finalized at location A. Impression: 1.No acute intracranial abnormality.
--- OUTSIDE RECORDS SUMMARY | 2025-07-28 16:22 | XMS_ITS | Encounter Summary ---
Author Organization [facility] Healthcare Address [address] [place] [address] Care Team Providers Care Nerve Specialist Name Role Phone Fede Mills Primary Care Provider Lynda Silvestre MD Unavailable [phone] Victor Manuel Real MD Unavailable [phone] Nazario Osman DPM Unavailable [phone] Concha Prakash RN Unavailable [phone] Encounter Details Date Type Department Care Team (Late st Contact Info) Description 07/24/2025 Telephone [facility] at [address] [place] [address] Omar Briceño, ERIN [address] [place] [address] DR [facility] [address] [place] [id number] Social History Tobacco Use Types Packs/Day Years Used Date Smoking Tobacco: Never Smokeless Tobacco: Never Alcohol Use Standard Drinks/Week Comments No 0 (1 standard drink = 0.6 oz pur e alcohol) Social Connection and Isolation Panel Answer Date Recorded In a typical week, how many times do you talk on the phone with family, friends, or neighbors? More than three times a week 05/07/2025 How often do you get togethe r with friends or relatives? More than three times a week 05/07/2025 How often do you attend chur ch or anabaptism services? Never 05/07/2025 Do you belong to any clubs o r organizations such as sabianist groups, unions, fraternal or athletic groups, or [...] PHQ-2 Answer Date Recorded PHQ-2 Total Score 0 07/03/2025 PRAPARE - Transportation Answer Date Re corded [...] place to sleep or slept in a long-term (including now)? No 11/23/2023 Housing Stability Vital [...] were you homeless or living in a long-term (including now)? No 05/07/2025 Social Connection and Isolation Panel Answer Date Recorded In a typical week, how many times do you talk on the phone with family, friends, or neighbors? More than three times a week 07/03/2025 How often do you get togethe r with friends or relatives? More than three times a week 07/03/2025 How often do you attend chur ch or anabaptism services? Never 07/03/2025 Do you belong to any clubs o r organizations such as sabianist groups, unions, fraternal or athletic groups, or school groups? No 07/03/2025 How often do you attend meet ings of the clubs or organizations you belong to? Never 07/03/2025 Are you , , di vorced, , never , or living with a partner? 07/03/2025 Overall Financial Resource Strain (CARDIA) Answe r Date Recorded How hard is it for you to pa y for the very basics like food, housing, medical care, and heating? Not hard at all 07/03/2025 Hunger Vital Sign Answer Date Recorded Within the past 12 months, y ou worried that your food would run out before you got the money to buy more. Never true 07/03/20 25 Within the past 12 months, t he food you bought just didn't last and you didn't have money to get more. Never true 07/03/2025 PRAPARE - Transportation Answer Date Re corded In the past 12 months, has l ack of transportation kept you from medical appointments or from getting medications? No 06/06 In the past 12 months, has l ack of transportation kept you from meetings, work, or from getting things needed for daily living? No 07/03/2025 Housing Stability Vital Sign Answer Ethan e Recorded In the last 12 months, was t here a time when you were not able to pay the mortgage or rent on time? No 07/03/2025 In the past 12 months, how m any times have you moved where you were living? 0 07/03/2025 At any time in the past 12 m [facility], were you homeless or living in a long-term (including now)? No 07/03/2025 [facility] Utilities Answer Date Recorded In the past 12 months has th [employer] electric, gas, oil, or water company threatened to shut off services in your home? No 07/03/2025 Personal Safety Answer Date Recorded Have you ever been in or are you currently in a harmful physical or emotional relationship or is someone making you feel afraid or unsafe? Denies 07/01/2025 Education Answer Date Recorded What is the highest level of school you have completed or the highest degree you have received? Associate degree: occupational, technical, or vocational program 11/23/2023 Comments No Sex and Gender Information Value Date Recorded Sex Assigned at Not on file Legal Sex Female 11:52 PM SONOGRAPHER Gender Identity Not on file Sexual Orientation Not on file documented as of this encounter Miscellaneous Notes * Telephone Encounter - Omar Briceño NP - 07/27/2025 10:09 AM CDT Called and gave parameters to hold midodrine for sys>180 * Telephone Encounter - Rosanna Jin MA - 07/24/2025 1:48 PM CDT Nurse Ludmila called and needs to speak to someone regarding Nicolle's Midodrine order and her BP. We have spoke to this nurse multiple times regarding medication. Can you call and explain to her? Ludmila RN [address] Nurse. [phone] documented in this encounter Plan of Treatment Not on file documented as of this encounter Visit Diagnoses Not on filedocumented in this encounter Care Teams Nerve Specialist Relationship Specialty Start Date End Date Fede Mills PA [address] [place] [address] DR [address] [place] [address] PCP - General Internal Medicine 07/04/22 Lynda Silvestre MD [address] [place] [address] Referring Physician Ophthalmology 11/13/22 Victor Manuel Real MD [address] [place] [address] [address] [place] [address] Consulting Physician Neurology 01/18/24 Nazario Osman DPM [address] [place] [address] Consulting Physician Orthotics 01/18/24 Concha Prakash, LAMINE [address] [place] [address] [address] [place] [address] Vehicle Service Agent 05/06/25 documented as of this encounter
--- OUTSIDE RECORDS SUMMARY | 2025-07-28 16:22 | XMS_ITS | Encounter Summary ---
Author Organization [facility] Healthcare Address [address] [place] [address] Care Team Providers Care Quality Control Tester Name Role Phone Fede Mills Primary Care Provider Lynda Silvestre MD Unavailable Victor Manuel Real MD Unavailable [phone] Nazario Osman DPM Unavailable [phone] Concha Prakash RN Unavailable [phone] Encounter Details Date Type Department Care Team (Late st Contact Info) Description 07/28/2025 Telephone [facility] [address] [facility] [address] [address] Joie Whatley MA Social History Tobacco Use Types Packs/Day Years [...] week 05/07/2025 How often do you attend [facility] or holiness services? Never 05/07/2025 Do you belong to any clubs o r organizations such as mormon groups, unions, fraternal or athletic groups, or [...] place to sleep or slept in a residential (including now)? No 11/23/2023 Housing Stability Vital Sign Answer Ethan e Recorded In the last 12 months, was t here a time when you were not able to pay the mortgage or rent on time? No 05/07/2025 In the past 12 months, how m any times have you moved where you were living? 0 05/07/2025 At any time in the past 12 m [facility], were you homeless or living in a residential (including now)? No 05/07/2025 Social Connection and Isolation Panel Answer Date Recorded In a typical week, how many times do you talk on the phone with family, friends, or neighbors? More than three times a week 07/03/2025 How often do you get togethe r with friends or relatives? More than three times a week 07/03/2025 How often do you attend chur ch or holiness services? Never 07/03/2025 Do you belong to any clubs o r organizations such as mormon groups, unions, fraternal or athletic groups, or [...] any time in the past 12 m [facility], were you homeless or living in a residential (including now)? 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 Patient hasdeclined more since we have seen her office. Nurse states that they are sending patient out to hospital today. documented in this encounter Plan of Treatment Not on file documented as of this encounter Visit Diagnoses Not on filedocumented in this encounter Care Teams Quality Control Tester Relationship Specialty Start Date End Date Fede Mills PA [address] [facility] [address] [place] [address] PCP - General Internal Medicine 07/04/22 Lynda Silvestre MD [address] [place] [address] Referring Physician Ophthalmology 11/13/22 Victor Manuel Real MD [address] [facility] [address] [place] [address] Consulting Physician Neurology 01/18/24 Nazario Osman DPM [address] [place] [address] Consulting Physician Orthotics 01/18/24 Concha Prakash, LAMINE [address] [place] [address] [address] [place] [phone] Framing Mill Operator Helper 05/06/25 documented as of this encounter
--- OUTSIDE RECORDS SUMMARY | 2025-07-28 16:22 | XMS_ITS | Encounter Summary ---
Author Organization [facility] Address [address] [place] [address] Phone Care Team Providers Care Senior Product Development Engineer Name Role Phone Otf Young MD Primary Care Provi patricia Fede Mills Primary Care Provider Lynda Silvestre MD Unavailable [phone] Victor Manuel Real MD Unavailable [phone] Nazario Osman DPM Unavailable [phone] Concha Prakash RN Unavailable [phone] Concha Prakash RN Unavailable [phone] Encounter Details Date Type Department Care Team (Late st Contact Info) Description 02/04/2018 Orders Only 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 This LTAC is not part of our screening at this time. 07/02/2025 07/02/2025 07/02/2025 8:36 AM C DT documented as of this encounter Care Teams Senior Product Development Engineer Relationship Specialty Start Date End Date Otf Young MD PCP - General 02/02/17 07/03/22 Fede Mills PA [address] [facility] [place] [address] PCP - General Internal Medicine 07/04/22 Lynda Silvestre MD [address] [place] [address] Referring Physician Ophthalmology 11/13/22 Victor Manuel Real MD [address] [place] [address] [address] [place] [address] Consulting Physician Neurology 01/18/24 Nazario Osman DPM [address] [place] [address] Consulting Physician Orthotics 01/18/24 Concha Prakash RN [address] [place] [address] [address] [place], [place] [id number] Chemical Test Engineer 04/13/25 04/29/25 Concha Prakash RN [address] [place] [address] [address] [place] [address] Chemical Test Engineer 05/06/25 documented as of this encounter
--- OUTSIDE RECORDS SUMMARY | 2025-07-28 16:22 | XMS_ITS | Encounter Summary ---
Author Organization [facility] Address [address] [address] Care Team Providers Care Check Embosser Name Role Phone Otf Young MD Primary Care Provi patricia Otf Young MD Primary Care Provi patricia Otf Young MD Primary Care Provi patricia Otf Young MD Primary Care Provi patricia Otf Young MD Primary Care Provi patricia Otf Young MD Primary Care Provi patricia Fede Mills Primary Care Provider Lynda Silvestre MD Unavailable [phone] Victor Manuel Real MD Unavailable [phone] Nazario Osman DPM Unavailable [phone] Concha Prakash RN Unavailable [phone] Concha Prakash RN Unavailable [phone] Encounter Details Date Type Department Care Team (Late st Contact Info) Description 06/25/2007 Orders Only [facility] Health Information Management [address] [place] [address] Otf Young MD [address] [place] [address] Social History Tobacco Use Types Packs/Day Years Used Date Smoking Tobacco: Never Assessed Comments Unknown Sex and Gender Information Value Date Recorded Sex Assigned at Not on file 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 Gender Identity Not on file Sexual Orientation Not on file documented as of this encounter Plan of Treatment Not on file documented as of this encounter Procedures Procedure Name Priority Date/Time Associated Diagnosis Comments COLONOSCOPY Routine 06/25/2007 documented in this encounter Results * Colonoscopy (06/25/2007) Anatomical Region Laterality Modality Other us Historical Provider ENDOSCOPY PROCEDURES Margaret l Result documented in this encounter Visit Diagnoses Not on filedocumented in this encounter Additional Health Concerns Infection Onset Date Last Indicated Resolved Time COVID: Suspected 07/19/2024 07/19/2024 07/19/2024 7:48 AM CDT LTAC Screening Comment:Patient came from [facility]. This LTAC is not part of our screening at this time. 07/02/2025 07/02/2025 07/02/2025 8:36 AM C DT documented as of this encounter Care Teams Check Embosser Relationship Specialty Start Date End Date Otf Young MD PCP - General 02/02/17 07/03/22 Otf Young MD PCP - General 01/08/17 02/01/17 Otf Young MD PCP - General 10/06/13 01/07/17 Otf Young MD PCP - General 09/24/07 10/05/13 Otf Young MD PCP - General 08/22/07 09/23/07 Otf Young MD PCP - General 05/29/07 08/21/07 [employer] PA [address] [facility] [address] [place] [address] PCP - General Internal Medicine 07/04/22 Lynda Silvestre MD [address] [place] [address] Referring Physician Ophthalmology 11/13/22 Victor Manuel Real MD [address] [facility] [address] [place] [address] Consulting Physician Neurology 01/18/24 Nazario Osman DPM [address] [place] [address] Consulting Physician Orthotics 01/18/24 Concha Prakash RN [address] [place] [address] [address] [place] [address] Inking Machine Tender 04/13/25 04/29/25 Concha Prakash RN [address] [place] [address] [address] [place] [address] Inking Machine Tender 05/06/25 documented as of this encounter
--- OUTSIDE RECORDS SUMMARY | 2025-07-28 16:22 | XMS_ITS | Encounter Summary ---
Author Organization [facility] Healthcare Address [address] [place] [id number] Care Team Providers Care Goat Herder Name Role Phone Fede Mills Primary Care Provider Lynda Silvestre MD Unavailable [phone] Victor Manuel Real MD Unavailable [phone] Nazario Osman DPM Unavailable [phone] Concha Prakash RN Unavailable [phone] Encounter Details Date Type Department Care Team (Late st Contact Info) Description 07/28/2025 Telephone [place] [employer] Operator at [address] [place] [address] Omar Briceño, ERIN [address] [place] [address] [address] [facility] [address] [place] [id number] Social History Tobacco Use Types Packs/Day Years [...] often do you attend chur ch or yazdanism services? Never 05/07/2025 Do you belong to any clubs o r organizations such as spiritism groups, unions, fraternal or athletic groups, or [...] place to sleep or slept in a mcfp (including now)? No 11/23/2023 Housing Stability Vital Sign Answer Ethan e Recorded In the last 12 months, was t here a time when you were not able to pay the mortgage or rent on time? No 05/07/2025 In the past 12 months, how m any times have you moved where you were living? 0 05/07/2025 At any time in the past 12 m [facility], were you homeless or living in a mcfp (including now)? No 05/07/2025 Social Connection and Isolation Panel Answer Date Recorded In a typical week, how many times do you talk on the phone with family, friends, or neighbors? More than three times a week 07/03/2025 How often do you get togethe r with friends or relatives? More than three times a week 07/03/2025 How often do you attend chur ch or yazdanism services? Never 07/03/2025 Do you belong to any clubs o r organizations such as spiritism groups, unions, fraternal or athletic groups, or [...] any time in the past 12 m [facility], were you homeless or living in a mcfp (including now)? 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 MOLD CHECKER recently went to get patient BP with a wrist cuff and per RN reading was 200/something high, RN went to take BP manually and it was 220/98 currently. Patient family is freaking out over BP and patient refused to go to ER. Patient is complaining of light headed and headaches. RN gave patient tylenol for head ache and patient states it helped some. RN also has call out to Neuro due to constant complaints of headaches and pain moving neck. RN stated talk of discharging patient on the to home. RN stated there has also been talk of putting patient on hospice when she goes home. Ludmila RAMAN [address] Nurse # [phone] documented in this encounter Plan of Treatment Not on file documented as of this encounter Visit Diagnoses Not on filedocumented in this encounter Care Teams Goat Herder Relationship Specialty Start Date End Date Fede Mills PA [address] [facility] [address] [place] [id number] PCP - General Internal Medicine 07/04/22 Lynda Silvestre MD [address] [place] [address] Referring Physician Ophthalmology 11/13/22 Victor Manuel Real MD [address] [place] [address] [address] [place] [address] Consulting Physician Neurology 01/18/24 Nazario Osman DPM [address] [place] [address] Consulting Physician Orthotics 01/18/24 Concha Prakash, RN [address] [place] [address] [address] [place] [address] Manager [employer] 05/06/25 documented as of this encounter
--- OUTSIDE RECORDS SUMMARY | 2025-07-28 16:22 | XMS_ITS | Patient Health Record ---
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 Orally Once a day Active Emgality 120 MG/ML Solution Prefilled Syringe 1 mL Subcutaneous montly Active Levothyroxine Sodium 25 MCG Tablet 1 tablet in the morning on an empty stomach Orally Once a day Active Fluticasone Propionate 50 MCG/ACT Suspension 2 sprays in each nostril Nasally Once a day As needed Active MiraLax 17 GM/SCOOP Powder 1 scoop mixed with 8 ounces of fluid Orally Once a day Active Metamucil 30.9 % Powder as directed Orally daily Active Simvastatin 10 MG Tablet 1 tablet in the evening Orally Once a day Active Artificial Tears PF 0.1-0.3 % Solution 1-2 drops in each eye Ophthalmic daily As needed Active Senna Plus 8.6-50 MG Tablet 1 tablet as needed Orally Twice a day Active Acetaminophen 500 MG Tablet 1 tablet as needed Orally every 4 hours Active Midodrine HCl 10 MG Tablet 1 tablet Oral ly 3 times a day Active carBAMazepine 100 MG Tablet Chewable 1 tablet Orally Twice a day Active Antacid 500 MG Tablet Chewable 1 tablet Orally every 6 hours Active Aspirin Adult Low Dose 81 MG Tablet Delayed Release 1 tablet Orally Once a day Active Carbidopa-Levodopa 25-100 MG Tablet 1 tablet Orally 3 times a day Active Social History Tobacco Use: Social History Observation Description Date Details (start date - stop date) Never Smoker NA - NA Social History Drug/Alcohol: Social Info Question Answer Notes Drugs Have you used drugs other than those for medical reasons in the past 12 months? No AUDIT-C (Standard) Did you have a drink containing alcohol in the past year? 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) Type 2 diabetes mellitus with unspecified complications (E11.8) Active confirmed Problem Chronic migraine without aura, non-intractable (220658336975515) Chronic migraine without aura, not intractable, without status migrainosus (G43.709) Active confirmed Problem Tear film insufficiency (39700442) Dry eye syndrome of bilateral lacrimal glands (H04.123) Active confirmed Problem Essential hypertension (95957883) Essential (primary) hypertension (I10) Active confirmed Problem Chronic diastolic heart failure (207163879) Chronic diastolic (congestive) heart failure (I50.32) Active confirmed Problem Seasonal allergic rhinitis (516382615) Other seasonal allergic rhinitis (J30.2) Active confirmed Problem Constipation (47534514) Constipation, unspecified (K59.00) Active confirmed Problem Valgus deformity (594129424) 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 Problem Hypertensive urgency (322211902) Hypertensive urgency (I16.0) Active confirmed Problem Chronic kidney disease stage 3 (disorder) (916706823) Chronic kidney disease, stage 3 unspecified (N18.30) Active confirmed Problem Pure hypercholesterolemia (033576219) Pure hypercholesterolemia (E78.00) Active confirmed Problem Pulmonary hypertension (20009629) Pulmonary hypertension (I27.20) Active confirmed Problem Parkinson's dise ase with dyskinesia, with fluctuations (G20.B2) Active confirmed Problem Falls (424312453) Falls (R29.6) Active confirme d Vital Signs Heart Rate 76 /min 07/23/2025 Temperature 97.7 degrees Fahrenheit 07/23/2025 Respiratory Rate 16 /min 07/23/2025 Oximetry 96 % 07/23/2025 Blood pressure diastolic 70 mm Hg 07/23/2025 Weight-kg 73.3 kg 05/22/2025 Blood pressure systolic 170 mm Hg 07/23/2025 Weight 161.6 lbs 05/22/2025 Encounters Encounter Location Date Provider Diagnosis [address] [address] 07/28/2025 Nena Peace [address] [address] 05/22/2025 GEORGE ROMERO [address] [address] 05/26/2025 Nena Peace Physical decondition ing R53.81 ; Parkinson's disease with dyskinesia, with fluctuations G20.B2 ; Essential (primary) hypertension I10 and Chronic diastolic (congestive) heart failure I50.[address] [address] 05/28/2025 Nena Peace Physical decondition ing R53.81 ; Parkinson's disease with dyskinesia, with fluctuations G20.B2 ; Essential (primary) hypertension I10 ; Chronic diastolic (congestive) heart failure I50.32 ; Falls R29.6 and Urinary tract infection in female N39.[address] [address] 06/02/2025 Nena Peace Physical decondition ing R53.81 ; Parkinson's disease with dyskinesia, with fluctuations G20.B2 ; Essential (primary) hypertension I10 and Chronic diastolic (congestive) heart failure I50.[address] [address] 06/04/2025 Nena Peace Physical decondition ing R53.81 ; Parkinson's disease with dyskinesia, with fluctuations G20.B2 ; Essential (primary) hypertension I10 and Chronic diastolic (congestive) heart failure I50.32 [place] [address] 06/12/2025 Nena Kobi Physical decondition ing R53.81 ; Parkinson's disease with dyskinesia, with fluctuations G20.B2 ; Essential (primary) hypertension I10 and Chronic diastolic (congestive) heart failure I50.32 [place] [address] 06/16/2025 Nena Kobi Physical decondition ing R53.81 ; Parkinson's disease with dyskinesia, with fluctuations G20.B2 ; Essential (primary) hypertension I10 and Chronic diastolic (congestive) heart failure I50.32 [place] [address] 06/18/2025 Nena Kobi Physical decondition ing R53.81 ; Parkinson's disease with dyskinesia, with fluctuations G20.B2 ; Essential (primary) hypertension I10 ; Chronic diastolic (congestive) heart failure I50.32 and Headache, unspecified R51.9 [place] [id number] 06/23/2025 Nena Kobi Physical decondition ing R53.81 ; Parkinson's disease with dyskinesia, with fluctuations G20.B2 ; Essential (primary) hypertension I10 ; Chronic diastolic (congestive) heart failure I50.32 and Headache, unspecified R51.[address] [address] 06/25/2025 Nena Kobi Physical decondition ing R53.81 ; Parkinson's disease with dyskinesia, with fluctuations G20.B2 ; Essential (primary) hypertension I10 ; Chronic diastolic (congestive) heart failure I50.32 and Headache, unspecified R51.9 [place] [address] 06/30/2025 Nena Kobi Physical decondition ing R53.81 ; Parkinson's disease with dyskinesia, with fluctuations G20.B2 ; Essential (primary) hypertension I10 ; Chronic diastolic (congestive) heart failure I50.32 ; Headache, unspecified R51.9 and Syncope [place]55 [place] [address] 07/09/2025 Nena Peace Syncope and collapse R55 [place] [address] [address] 07/14/2025 Nena Peace Physical decondition ing R53.81 ; Parkinson's disease with dyskinesia, with fluctuations G20.B2 ; Essential (primary) hypertension I10 ; Chronic diastolic (congestive) heart failure I50.32 ; Headache, unspecified R51.9 and Syncope and collapse R55 [place] [address] [place] [address] 07/17/2025 [place] [address] [address] 07/21/2025 Nena Peace Physical decondition ing R53.81 ; Parkinson's disease with dyskinesia, with fluctuations G20.B2 ; Essential (primary) hypertension I10 ; Chronic diastolic (congestive) heart failure I50.32 ; Headache, unspecified R51.9 and Syncope and collapse R55 [place] [address] [place] [address] 07/23/2025 Nena Peace Physical decondition ing R53.81 ; Parkinson's disease with dyskinesia, with fluctuations G20.B2 ; Essential (primary) hypertension I10 ; Chronic diastolic (congestive) heart failure I50.32 ; Headache, unspecified R51.9 and Syncope and collapse R55 [place] [address] [address] 06/04/2025 [place] [address] [address] 05/12/2025 [place] [address] [address] 05/14/2025 [place] [address] [address] 05/20/2025 [place] [address] [address] 05/21/2025 [place] [address] [address] 05/22/2025 [place] [address] [address] 05/26/2025 [place] [address] [address] 05/27/2025 [place] [address] [place] [address] 06/02/2025 GEORGE Tran [facility] [address] [place] [address] 06/04/2025 GEORGE Tran [facility] [address] [place] [address] 06/10/2025 GEORGE Tran [facility] [address] [place] [address] 06/16/2025 GEORGE Tran [place] [address] [place] [address] 06/18/2025 GEORGE Tran [facility] [address] [place] [address] 06/23/2025 GEORGE Tran [facility] [address] [place] [address] 06/23/2025 GEORGE Tran [place] [address] [place] [address] 06/25/2025 GEORGE Tran [facility] [address] [place] [address] 06/29/2025 Nena Peace [place] [address] [place] [address] 06/30/2025 GEORGE Tran [place] [address] [place] [address] 07/01/2025 GEORGE Tran [place] [address] [place] [address] 07/10/2025 GEORGE Tran [facility] [address] [place] [address] 07/13/2025 GEORGE Tran [facility] [address] [place] [address] 07/17/2025 GEORGE Tran [place] [address] [place] [address] 07/20/2025 GEORGE Tran [facility] [address] [place] [address] 07/21/2025 GEORGE Tran [facility] [address] [place] [address] 07/21/2025 Nena Peace [facility] [address] [place] [address] 07/23/2025 GEORGE Tran [facility] [address] [place] [address] 07/27/2025 GEORGE Tran [facility] [address] [place] [address] 07/27/2025 [facility]ORGE [facility] [address] [id number] 07/28/2025 GEORGE ROMERO Assessments Encounter Date Diagnosis (ICD Code) Assessment Notes Treatment Notes Treatment Clinical Notes Section Notes 05/26/2025 Physical deconditioning (ICD-10 - R53.81) The patient is working with PT and OT for strengthening and mobility. She utilizes wheelchair for ambulation, sit to stand for transfers. She reports that therapy is going okay. 05/26/2025 Parkinson's disease with dyskinesia, with fluctuations (ICD-10 - G20.B2) The patient does not have any complaints at this time. Managed well on current medications.Marilyn peres current treatment plan and monitoring. 05/28/2025 Physical deconditioning (ICD-10 - R53.81) The patient is working with PT and OT for strengthening and mobility. She utilizes wheelchair for ambulation, sit to stand for transfers. She reports that therapy is going okay. 05/28/2025 Parkinson's disease with dyskinesia, with fluctuations (ICD-10 - G20.B2) The patient does not have any complaints at this time. Managed well on current medications.Marilyn peres current treatment plan and monitoring. 06/02/2025 Physical deconditioning (ICD-10 - R53.81) The patient is working with PT and OT for strengthening and mobility. She utilizes wheelchair for ambulation, Lizzy lift for transfers. She reports that therapy is going okay. 06/02/2025 Parkinson's disease with dyskinesia, with fluctuations (ICD-10 - G20.B2) The patient does not have any complaints at this time. Managed well on current medications.Marilyn peres current treatment plan and monitoring. 06/04/2025 Physical deconditioning (ICD-10 - R53.81) The patient is working with PT and OT for strengthening and mobility. She utilizes wheelchair for ambulation, Lizzy lift for transfers. She reports that therapy is going okay. 06/12/2025 Physical deconditioning (ICD-10 - R53.81) The patient is working with PT and OT for strengthening and mobility. She utilizes wheelchair for ambulation. She reports that therapy is going okay. 06/16/2025 Physical deconditioning (ICD-10 - R53.81) The patient is working with PT and OT for strengthening and mobility. She utilizes wheelchair for ambulation. She reports that therapy is going okay. 06/18/2025 Physical deconditioning (ICD-10 - R53.81) The patient is working with PT and OT for strengthening and mobility. She utilizes wheelchair for ambulation. She reports that therapy is going okay. 06/18/2025 Parkinson's disease with dyskinesia, with fluctuations (ICD-10 - G20.B2) The patient does not have any complaints at this time. Managed well on current medications.Marilyn peres current treatment plan and monitoring. 06/23/2025 Physical deconditioning (ICD-10 - R53.81) The patient is working with PT and OT for strengthening and mobility. She utilizes wheelchair for ambulation. She reports that therapy is going okay. 06/25/2025 Physical deconditioning (ICD-10 - R53.81) The patient is working with PT and OT for strengthening and mobility. She utilizes wheelchair for ambulation. She reports that therapy is going okay. 06/30/2025 Physical deconditioning (ICD-10 - R53.81) The patient is working with PT and OT for strengthening and mobility. She utilizes wheelchair for ambulation. She reports that therapy is going okay. 06/30/2025 Parkinson's disease with dyskinesia, with fluctuations (ICD-10 - G20.B2) The patient does not have any complaints at this time. Managed well on current medications.Marilyn peres current treatment plan and monitoring. 07/09/2025 Syncope and collapse (ICD-10 - R55) Patient was admitted to the hospital from 06/30/2025 to 07/08/2025 due to having multiple syncopal episodes in the facility. No new orders were given in the hospital aside from to use abdominal binder while out of bed for support. They believe the episodes have something to do with her increase in Parkinson's symptoms. Continue to monitor and update with any changes. 07/14/2025 Physical deconditioning (ICD-10 - R53.81) The patient is working with PT and OT for strengthening and mobility. She utilizes wheelchair for ambulation. She reports that therapy is going okay. 07/21/2025 Physical deconditioning (ICD-10 - R53.81) The patient is working with PT and OT for strengthening and mobility. She utilizes wheelchair for ambulation. She reports that therapy is going okay. 07/23/2025 Physical deconditioning (ICD-10 - R53.81) The patient is working with PT and OT for strengthening and mobility. She utilizes wheelchair for ambulation. She reports that therapy is going okay. 07/23/2025 Parkinson's disease with dyskinesia, with fluctuations (ICD-10 - G20.B2) The patient does not have any complaints at this time. Managed well on current medications.Marilyn nue current treatment plan and monitoring. 07/21/2025 Parkinson's disease with dyskinesia, with fluctuations (ICD-10 - G20.B2) The patient does not have any complaints at this time. Managed well on current medications.Marilyn nue current treatment plan and monitoring. 07/14/2025 Parkinson's disease with dyskinesia, with fluctuations (ICD-10 - G20.B2) The patient does not have any complaints at this time. Managed well on current medications.Marilyn nue current treatment plan and monitoring. 06/25/2025 Parkinson's disease with dyskinesia, with fluctuations (ICD-10 - G20.B2) The patient does not have any complaints at this time. Managed well on current medications.Marilyn nue current treatment plan and monitoring. 06/30/2025 Essential (primary) hypertension (ICD-10 - I10) Blood pressure has been running very good. Continues without any blood pressure meds at this time. Continue to monitor and update provider with any changes. 06/02/2025 Essential (primary) hypertension (ICD-10 - I10) Blood pressure has been running low. Along with patient's dizziness and almost passing out with standing, lisinopril was stopped. Order was given to do a blood pressure log and send for review. 06/23/2025 Parkinson's disease with dyskinesia, with fluctuations (ICD-10 - G20.B2) The patient does not have any complaints at this time. Managed well on current medications.Marilyn nue current treatment plan and monitoring. 06/16/2025 Parkinson's disease with dyskinesia, with fluctuations (ICD-10 - G20.B2) The patient does not have any complaints at this time. Managed well on current medications.Marilyn nue current treatment plan and monitoring. 06/18/2025 Essential (primary) hypertension (ICD-10 - I10) Blood pressure has been running very good. Continues without any blood pressure meds at this time. Continue to monitor and update provider with any changes. 06/12/2025 Parkinson's disease with dyskinesia, with fluctuations (ICD-10 - G20.B2) The patient does not have any complaints at this time. Managed well on current medications.Marilyn nue current treatment plan and monitoring. 06/04/2025 Parkinson's disease with dyskinesia, with fluctuations (ICD-10 - G20.B2) The patient does not have any complaints at this time. Managed well on current medications.Marilyn nue current treatment plan and monitoring. 05/26/2025 Essential (primary) hypertension (ICD-10 - I10) Blood pressure is stable. Managed well on current medications.Marilyn nue current treatment plan and monitoring. 05/28/2025 Essential (primary) hypertension (ICD-10 - I10) Blood pressure is stable. Managed well on current medications.Marilyn nue current treatment plan and monitoring. 05/28/2025 Chronic diastolic (congestive) heart failure (ICD-10 - I50.32) No signs and symptoms of fluid overload. No edema noted. Managed well on current medications.Marilyn nue current treatment plan and monitoring. 05/26/2025 Chronic diastolic (congestive) heart failure (ICD-10 - I50.32) No signs and symptoms of fluid overload. No edema noted. Managed well on current medications.Marilyn nue current treatment plan and monitoring. 06/12/2025 Essential (primary) hypertension (ICD-10 - I10) Blood pressure has been running very good. Continues without any blood pressure meds at this time. Continue to monitor and update provider with any changes. 06/04/2025 Essential (primary) hypertension (ICD-10 - I10) Blood pressure has been running low. Along with patient's dizziness and almost passing out with standing, lisinopril was stopped. Awaiting blood pressure log to be sent. 06/16/2025 Essential (primary) hypertension (ICD-10 - I10) Blood pressure has been running very good. Continues without any blood pressure meds at this time. Continue to monitor and update provider with any changes. 06/18/2025 Chronic diastolic (congestive) heart failure (ICD-10 - I50.32) No signs and symptoms of fluid overload. +1 edema noted to bilateral ankles. Encouraged patient to continue elevating legs as much as possible Also encouraged to drink more fluids. 06/25/2025 Essential (primary) hypertension (ICD-10 - I10) Blood pressure has been running very good. Continues without any blood pressure meds at this time. Continue to monitor and update provider with any changes. 06/23/2025 Essential (primary) hypertension (ICD-10 - I10) Blood pressure has been running very good. Continues without any blood pressure meds at this time. Continue to monitor and update provider with any changes. 06/02/2025 Chronic diastolic (congestive) heart failure (ICD-10 - I50.32) No signs and symptoms of fluid overload. No edema noted. Managed well on current medications.Marilyn peres current treatment plan and monitoring. 06/30/2025 Chronic diastolic (congestive) heart failure (ICD-10 - I50.32) No signs and symptoms of fluid overload. +1 edema noted to bilateral ankles. Encouraged patient to continue elevating legs as much as possible Also encouraged to drink more fluids. 07/21/2025 Essential (primary) hypertension (ICD-10 - I10) Blood pressure has been stable since stopping the blood pressure medications and starting the midodrine. Continue to monitor and update with any changes. 07/14/2025 Essential (primary) hypertension (ICD-10 - I10) Blood pressure has been running very good. Continues without any blood pressure meds at this time. Continue to monitor and update provider with any changes. 07/23/2025 Essential (primary) hypertension (ICD-10 - I10) Blood pressure is running elevated at this time, nurse spoke with cardiology about the midodrine being held if needed, but they instructed them to give the midodrine no matter what. Nurse reports that they just continue to check blood pressure and give midodrine three times a day as ordered. 07/23/2025 Chronic diastolic (congestive) heart failure (ICD-10 - I50.32) No signs and symptoms of fluid overload. Trace edema noted to bilateral ankles. Continue to or encouraged to elevate legs as much as possible. 07/14/2025 Chronic diastolic (congestive) heart failure (ICD-10 - I50.32) No signs and symptoms of fluid overload. +1 edema noted to bilateral ankles. Encouraged patient to continue elevating legs as much as possible Also encouraged to drink more fluids. 07/21/2025 Chronic diastolic (congestive) heart failure (ICD-10 - I50.32) No signs and symptoms of fluid overload. Trace edema noted to bilateral ankles. Continue to or encouraged to elevate legs as much as possible. 05/28/2025 Falls (ICD-10 - R29.6) She was seen in the ED on 05/22/2025 for a fall. Patient reports that she was on the toilet having a bowel movement when she woke up on the floor, they believe this was a vasovagal response. 06/30/2025 Headache, unspecified (ICD-10 - R51.9) Patient denies having any headaches at this time. Continue to monitor and update with any changes. Encouraged PO fluids. 06/23/2025 Chronic diastolic (congestive) heart failure (ICD-10 - I50.32) No signs and symptoms of fluid overload. +1 edema noted to bilateral ankles. Encouraged patient to continue elevating legs as much as possible Also encouraged to drink more fluids. 06/25/2025 Chronic diastolic (congestive) heart failure (ICD-10 - I50.32) No signs and symptoms of fluid overload. +1 edema noted to bilateral ankles. Encouraged patient to continue elevating legs as much as possible Also encouraged to drink more fluids. 06/18/2025 Headache, unspecified (ICD-10 - R51.9) Patient has a complain of headache, but Tylenol has been helping. Explained to the patient that she could be getting a little dehydrated if she is not drinking enough water. Encouraged to increase her water intake. 06/16/2025 Chronic diastolic (congestive) heart failure (ICD-10 - I50.32) No signs and symptoms of fluid overload. +2 edema noted to bilateral ankles.Order given today for Lasix 20 mg daily x3 days _update provider on how ankle swelling is. 06/04/2025 Chronic diastolic (congestive) heart failure (ICD-10 - I50.32) No signs and symptoms of fluid overload. No edema noted. Managed well on current medications.Marilyn peres current treatment plan and monitoring. 06/12/2025 Chronic diastolic (congestive) heart failure (ICD-10 - I50.32) No signs and symptoms of fluid overload. No edema noted. Managed well on current medications.Marilyn nue current treatment plan and monitoring. 05/28/2025 Urinary tract infection in female (ICD-10 - N39.0) Patient was complaining of dysuria in the emergency room and they started her on Keflex b.i.d. x5 days. Patient denies having any problems in urinating at this time. 06/25/2025 Headache, unspecified (ICD-10 - R51.9) Patient denies having any headaches at this time. Continue to monitor and update with any changes. Encouraged PO fluids. 06/23/2025 Headache, unspecified (ICD-10 - R51.9) Patient continues to complain of having headache daily, Tyelnol has been helping. Explained to the patient that she could be getting a little dehydrated if she is not drinking enough water. Encouraged to increase her water intake. 06/30/2025 Syncope and collapse (ICD-10 - R55) Patient had multiple syncopal episodes while just sitting in her chair or while trying to stand during therapy. She did see her home maker on 06/25/2025, which they started midodrine 5 mg t.i.d., but they were contacted due to the having multiple syncopal episodes yesterday and got a new order today for to increase the midodrine to 10 mg t.i.d. After seeing the patient, staff came and said that they were sending her to the hospital due to having another syncopal episode while in bed and the son would like her checked out at [facility]. 07/14/2025 Headache, unspecified (ICD-10 - R51.9) Patient denies having any headaches at this time. Continue to monitor and update with any changes. Encouraged PO fluids. 07/21/2025 Headache, unspecified (ICD-10 - R51.9) Patient denies any headaches at this time. Managed well on current medications. Continue current treatment plan and monitoring. 07/23/2025 Headache, unspecified (ICD-10 - R51.9) Patient denies any headaches at this time. Managed well on current medications. Continue current treatment plan and monitoring. 07/23/2025 Syncope and collapse (ICD-10 - R55) No syncopal episodes have been reported yesterday and today. Patient has been wearing abdominal binder when out of bed, which seems to be helping. Continue to monitor and update with any changes. 07/21/2025 Syncope and collapse (ICD-10 - R55) Patient had one syncopal episode yesterday, but the episodes have been less since going to the hospital and returning with the abdominal binder order. Staff is aware patient needs to wear abdominal binder while up. 07/14/2025 Syncope and collapse (ICD-10 - R55) Patient was seen in the hospital recently due to the syncopal episodes. Only new order that was given was to start using an abdominal binder when patient is up. It seems to be helping. Patient did not have abdominal binder on this morning when she had a syncopal episode and that was when they were going to give her a shower. Staff are aware that patient needs the abdominal binder on while up. 05/26/2025 Other Continue curren t treatment plan.Staff to continue to monitor and report any changes.Patient education provided and questions/concern s addressed.Follow up in one week unless necessary sooner. 05/28/2025 Other Continue curren t treatment plan.Staff to continue to monitor and report any changes.Patient education provided and questions/concern s addressed.Follow up in one week unless necessary sooner. 06/02/2025 Other Continue curren t treatment plan.Staff to continue to monitor and report any changes.Patient education provided and questions/concern s addressed.Follow up in one week unless necessary sooner. 06/04/2025 Other Continue curren t treatment plan.Staff to continue to monitor and report any changes.Patient education provided and questions/concern s addressed.Follow up in one week unless necessary sooner. 06/12/2025 Other Continue curren t treatment plan.Staff to continue to monitor and report any changes.Patient education provided and questions/concern s addressed.Follow up in one week unless necessary sooner. 06/16/2025 Other Continue curren t treatment plan.Staff to continue to monitor and report any changes.Patient education provided and questions/concern s addressed.Follow up in one week unless necessary sooner. 06/18/2025 Other Continue curren t treatment plan.Staff to continue to monitor and report any changes.Patient education provided and questions/concern s addressed.Follow up in one week unless necessary sooner. 06/23/2025 Other Continue curren t treatment plan.Staff to continue to monitor and report any changes.Patient education provided and questions/concern s addressed.Follow up in one week unless necessary sooner. 06/25/2025 Other Continue curren t treatment plan.Staff to continue to monitor and report any changes.Patient education provided and questions/concern s addressed.Follow up in one week unless necessary sooner. 06/30/2025 Other Continue curren t treatment plan.Staff to continue to monitor and report any changes.Patient education provided and questions/concern s addressed.Follow up in one week unless necessary sooner. 07/09/2025 Other Continue current treatment plan. Staff to continue to monitor and report any changes. Patient education provided and questions/concern s addressed. Follow up in 1 week unless necessary sooner. 07/14/2025 Other Continue curren t treatment plan.Staff to continue to monitor and report any changes.Patient education provided and questions/concern s addressed.Follow up in one week unless necessary sooner. 07/21/2025 Other Continue curren t treatment plan.Staff to continue to monitor and report any changes.Patient education provided and questions/concern s addressed.Follow up in one week unless necessary sooner. 07/23/2025 Other Continue curren t treatment plan.Staff to continue to monitor and report any changes.Patient education provided and questions/concern s addressed.Follow up in one week unless necessary sooner. Plan Of Treatment Next Appt Details Provider Name:Nena Peace , 07/30/2025 07:15:00 AM, [address], [place], [address], Insurance Providers Payer Name Payer Address Payer Phone Subscriber Number Group Number Insured Name Patient Relationship to Insured Coverage Start Date Coverage End Date [employer] [address] [place] [id number] Nicolle Jones Self - patient is the insured Medical (General) History Medical History History ICD Code Parkinson's disease with dyskinesia, wit h fluctuations G20.B2 Iron deficiency anemia, unspecified D50. 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 XXXA Pure hypercholesterolemia E78.00 Hypertensive urgency I16.0 Pulmonary hypertension I27.20 Chronic kidney disease, stage 3 unspecif ied N18.30 Left-sided headache R51.9 Low back pain, unspecified M54.50 Surgical History Surgery Date(Month/Year) NO PREVIOUS SURGERIES
--- OUTSIDE RECORDS SUMMARY | 2025-07-28 16:22 | XMS_ITS | Clinical Summary ---
Author Organization [facility] Address [address] [place] [id number] Care Team Providers Care Monotype Operator Name Role Phone Fede Mills Primary Care Provider Lynda Silvestre MD Unavailable [phone] Victor Manuel Real MD Unavailable [phone] Nazario Osman DPM Unavailable [phone] Concha Prakash RN Unavailable Allergies Active Allergy Reactions Criticality Noted Date [...] subcutaneous every 30 days 1 mL 11 07/19/20 24 Active carbidopa-levo dopa (SINEMET) 25-100 mg per tabletIndicati ons:Parkinsoni sm Take 1 tablet by mouth 3 (three) times a day 90 tablet 11 08/26/20 24 2024 Active psyllium husk, with sugar, (Metamucil, with sugar,) 3 gram/7 gram powder as directed Mix 1 tablespoon with liquid and take by mouth Active simvastatin (ZOCOR) 10 mg tablet Take 1 tablet (10 mg total) by mouth daily 90 tablet 3 01/22/20 25 Active levothyroxine (SYNTHROID) 25 mcg tablet TAKE 1 TABLET (25 MCG TOTAL) BY MOUTH DAILY ON EMPTY STOMACH 90 tablet 1 05/02/20 25 Active fluticasone propionate (FLONASE) 50 mcg/actuation nasal spray ADMINISTER 2 SPRAYS INTO EACH NOSTRIL DAILY NEEDED 48 mL 1 05/05/20 25 Active senna-docusate (PERICOLACE) 8.6-50 mgIndications: constipation Take 1 tablet by mouth 2 (two) times a day as needed for constipation 60 tablet 05/09/20 25 Active carBAMazepine (TEGretol) 100 mg chewable tablet TAKE 1 TABLET BY MOUTH TWICE A DAY 180 tablet 1 06/16/20 25 Active polyethylene glycol (MIRALAX) 17 gram/dose bulk powderIndicati ons:constipati on Take 17 g by mouth daily As needed 510 g 1 07/08/20 25 2024 Active midodrine (PROAMATINE) 10 mg tabletIndicati ons:Symptomati c Orthostatic Hypotension Take 1 tablet (10 mg total) by mouth 3 (three) times a day before meals 07/08/20 25 2024 Active polyethylene glycol (MIRALAX) 17 gram/dose bulk powderIndicati ons:constipati on Take 17 g by mouth daily 510 g 1 05/09/20 25 2024 Discontinued midodrine (PROAMATINE) 5 mg tabletIndicati ons:Symptomati c Orthostatic Hypotension Take 1 tablet (5 mg total) by mouth 3 (three) times a day 270 tablet 3 06/25/20 25 2024 Discontinued(S top Taking at Discharge) Active Problems Problem Noted Date Diagnosed Date Syncope, unspecified syncope type 06/30/2025 Assessment & Plan (07/08/2025 1:22 PM CDT): Hx Parkinson's on Sinemet. Presents with recurrent syncope and orthostatic hypotension despite stopping HTN meds and starting midodrine (started recently by washerette machine operator). Recent TTE in April 2025 showed severe pulm HTN, mild AI/TR, EF 70-75%. C/f Parkinson's autonomic dysfunction and less likely medication [facility] in ED unable to be fully completed (unable to stand d/t weakness) but noted to have almost 20 point drop in SBP from lying to sitting Had hospital admission in May of this year for worsening LE weakness, got extensive workup with joint xrays, MRI lumbar spine and neurology consult who all deemed likely secondary to progression of parkinsons, she was ultimately discharged to short term alf from where she was admitted here with syncope. Here continues to be significantly weak, able to sit with assistance to side of bed after ROM exercises to loosen up stiff extremities. Per was walking with walker at SNF a few days prior to arrival here. PT recommending SNF, suspect deconditioning on top of progression of parkinsons as reason for worsening weakness at this time - continue midodrine 10mg TID, will allow for some component of supine HTN to prevent orthostatic episodes, hold for SBP >180 - Will trial 500 mg LR bolus today - trial abdominal binder, compression stockings when getting up - hold HTN meds, monitor supine HTN - PT/OT recommending SNF - continue sinemet - Anticipate dc today pending SNF Assessment & Plan (07/07/2025 12:33 PM CDT): Hx Parkinson's on Sinemet. Presents with recurrent syncope and orthostatic hypotension despite stopping HTN meds and starting midodrine (started recently by washerette machine operator). Recent TTE in April 2025 showed severe pulm HTN, mild AI/TR, EF 70-75%. C/f Parkinson's autonomic dysfunction and less likely medication [facility] in ED unable to be fully completed (unable to stand d/t weakness) but noted to have almost 20 point drop in SBP from lying to sitting Had hospital admission in May of this year for worsening LE weakness, got extensive workup with joint xrays, MRI lumbar spine and neurology consult who all deemed likely secondary to progression of parkinsons, she was ultimately discharged to short term alf from where she was admitted here with syncope. Here continues to be significantly weak, able to sit with assistance to side of bed after ROM exercises to loosen up stiff extremities. Per was walking with walker at SNF a few days prior to arrival here. PT recommending SNF, suspect deconditioning on top of progression of parkinsons as reason for worsening weakness at this time - continue midodrine 10mg TID, will allow for some component of supine HTN to prevent orthostatic episodes, hold for SBP >180 - Will trial 500 mg LR bolus today - trial abdominal binder, compression stockings when getting up - hold HTN meds, monitor supine HTN - PT/OT recommending SNF - continue sinemet - Anticipate dc tomorrow Assessment & Plan (07/06/2025 4:50 PM CDT): Hx Parkinson's on Sinemet. Presents with recurrent syncope and orthostatic hypotension despite stopping HTN meds and starting midodrine (started recently by washerette machine operator). Recent TTE in April 2025 showed severe pulm HTN, mild AI/TR, EF 70-75%. C/f Parkinson's autonomic dysfunction and less likely medication [facility] in ED unable to be fully completed (unable to stand d/t weakness) but noted to have almost 20 point drop in SBP from lying to sitting Had hospital admission in May of this year for worsening LE weakness, got extensive workup with joint xrays, MRI lumbar spine and neurology consult who all deemed likely secondary to progression of parkinsons, she was ultimately discharged to short term alf from where she was admitted here with syncope. Here continues to be significantly weak, able to sit with assistance to side of bed after ROM exercises to loosen up stiff extremities. Per was walking with walker at SNF a few days prior to arrival here. PT recommending SNF, suspect deconditioning on top of progression of parkinsons as reason for worsening weakness at this time - continue midodrine 10mg TID, will allow for some component of supine HTN to prevent orthostatic episodes, hold for SBP >180 - trial abdominal binder, compression stockings when getting up - hold HTN meds, monitor supine HTN - PT/OT - continue sinemet Assessment & Plan (07/05/2025 11:22 AM CDT): Hx Parkinson's on Sinemet. Presents with recurrent syncope and orthostatic hypotension despite stopping HTN meds and starting midodrine (started recently by washerette machine operator). Recent TTE in April 2025 showed severe pulm HTN, mild AI/TR, EF 70-75%. C/f Parkinson's autonomic dysfunction and less likely medication [facility] in ED unable to be fully completed (unable to stand d/t weakness) but noted to have almost 20 point drop in SBP from lying to sitting Had hospital admission in May of this year for worsening LE weakness, got extensive workup with joint xrays, MRI lumbar spine and neurology consult who all deemed likely secondary to progression of parkinsons, she was ultimately discharged to short term alf from where she was admitted here with syncope. Here continues to be significantly weak, able to sit with assistance to side of bed after ROM exercises to loosen up stiff extremities. Per was walking with walker at SNF a few days prior to arrival here. PT recommending SNF, suspect deconditioning on top of progression of parkinsons as reason for worsening weakness at this time - continue midodrine 10mg TID, will allow for some component of supine HTN to prevent orthostatic episodes, hold for SBP >180 - trial abdominal binder, compression stockings when getting up - hold HTN meds, monitor supine HTN - PT/OT - continue sinemet Assessment & Plan (07/04/2025 2:40 PM CDT): Hx Parkinson's on Sinemet. Presents with recurrent syncope and orthostatic hypotension despite stopping HTN meds and starting midodrine (started recently by washerette machine operator). Recent TTE in April 2025 showed severe pulm HTN, mild AI/TR, EF 70-75%. C/f Parkinson's autonomic dysfunction and less likely medication [facility] in ED unable to be fully completed (unable to stand d/t weakness) but noted to have almost 20 point drop in SBP from lying to sitting Had hospital admission in May of this year for worsening LE weakness, got extensive workup with joint xrays, MRI lumbar spine and neurology consult who all deemed likely secondary to progression of parkinsons, she was ultimately discharged to short term alf from where she was admitted here with syncope. Here continues to be significantly weak, able to sit with assistance to side of bed after ROM exercises to loosen up stiff extremities. Per was walking with walker at SNF a few days prior to arrival here. PT recommending SNF, suspect deconditioning on top of progression of parkinsons as reason for worsening weakness at this time - continue midodrine 10mg TID, will allow for some component of supine HTN to prevent orthostatic episodes - trial abdominal binder, compression stockings - hold HTN meds, monitor supine HTN - PT/OT - continue sinemet Assessment & Plan (07/03/2025 4:02 PM CDT): Hx Parkinson's on Sinemet. Presents with recurrent syncope and orthostatic hypotension despite stopping HTN meds and starting midodrine (started recently by washerette machine operator). Recent TTE in April 2025 showed severe pulm HTN, mild AI/TR, EF 70-75%. C/f Parkinson's autonomic dysfunction and less likely medication [facility] in ED unable to be fully completed (unable to stand d/t weakness) but noted to have almost 20 point drop in SBP from lying to sitting Had hospital admission in May of this year for worsening LE weakness, got extensive workup with joint xrays, MRI lumbar spine and neurology consult who all deemed likely secondary to progression of parkinsons, she was ultimately discharged to short term alf from where she was admitted here with syncope. Here continues to be significantly weak, unable to sit or stand without assistance at this time. Per was walking with walker at SNF a few days prior to arrival here. PT recommending SNF, suspect deconditioning on top of progression of parkinsons as reason for worsening weakness at this time - trial midodrine 10mg TID, will allow for some component of supine HTN to prevent orthostatic episodes - trial abdominal binder, compression stockings - hold HTN meds, monitor supine HTN - PT/OT - continue sinemet - CT head given fall prior to arrival with reported head strike Assessment & Plan (07/02/2025 3:53 PM CDT): Hx Parkinson's on Sinemet. Presents with recurrent syncope and orthostatic hypotension despite stopping HTN meds and starting midodrine (started recently by washerette machine operator). Recent TTE in April 2025 showed severe pulm HTN, mild AI/TR, EF 70-75%. C/f Parkinson's autonomic dysfunction and less likely medication [facility] in ED unable to be fully completed (unable to stand d/t weakness) but noted to have almost 20 point drop in SBP from lying to sitting - trial midodrine 10mg TID, will allow for some component of supine HTN to prevent orthostatic episodes - trial abdominal binder, compression stockings - hold HTN meds, monitor supine HTN - PT/OT - telemetry - continue sinemet Assessment & Plan (07/01/2025 4:35 PM CDT): Hx Parkinson's on Sinemet. Presents with recurrent syncope and orthostatic hypotension despite stopping HTN meds and starting midodrine. Recent TTE in April 2025 showed severe pulm HTN, mild AI/TR, EF 70-75%. C/f Parkinson's autonomic dysfunction vs side effect of Sinemet, or both. - orthostatics in ED unable to be fully completed (unable to stand d/t weakness) but noted to have almost 20 point drop in SBP from lying to sitting - no improvement with midodrine 5 TID as outpatient, will trial increase of 10 TID as outpatient cardiology recommended 06/30 - hold HTN meds, monitor supine HTN - continue Sinemet for now. Consider Neurology c/s in AM to discuss if this should be continued - PT/OT - telemetry Weakness 05/06/2025 Hypertensive urgency 04/10/2025 Bradycardia 04/10/2025 Parkinson's disease with dyskinesia, with fluctu ations 01/21/2025 Assessment & Plan (07/08/2025 1:22 PM CDT): Hx Parkinson's on Sinemet. Presents with recurrent syncope and orthostatic hypotension despite stopping HTN meds and starting midodrine (started recently by washerette machine operator). Recent TTE in April 2025 showed severe pulm HTN, mild AI/TR, EF 70-75%. C/f Parkinson's autonomic dysfunction and less likely medication [facility] in ED unable to be fully completed (unable to stand d/t weakness) but noted to have almost 20 point drop in SBP from lying to sitting Had hospital admission in May of this year for worsening LE weakness, got extensive workup with joint xrays, MRI lumbar spine and neurology consult who all deemed likely secondary to progression of parkinsons, she was ultimately discharged to short term alf from where she was admitted here with syncope. Here continues to be significantly weak, able to sit with assistance to side of bed after ROM exercises to loosen up stiff extremities. Per was walking with walker at SNF a few days prior to arrival here. PT recommending SNF, suspect deconditioning on top of progression of parkinsons as reason for worsening weakness at this time - continue midodrine 10mg TID, will allow for some component of supine HTN to prevent orthostatic episodes, hold for SBP >180 - Will trial 500 mg LR bolus today - trial abdominal binder, compression stockings when getting up - hold HTN meds, monitor supine HTN - PT/OT recommending SNF - continue sinemet - Anticipate dc today pending SNF Assessment & Plan (07/07/2025 12:33 PM CDT): Hx Parkinson's on Sinemet. Presents with recurrent syncope and orthostatic hypotension despite stopping HTN meds and starting midodrine (started recently by washerette machine operator). Recent TTE in April 2025 showed severe pulm HTN, mild AI/TR, EF 70-75%. C/f Parkinson's autonomic dysfunction and less likely medication [facility] in ED unable to be fully completed (unable to stand d/t weakness) but noted to have almost 20 point drop in SBP from lying to sitting Had hospital admission in May of this year for worsening LE weakness, got extensive workup with joint xrays, MRI lumbar spine and neurology consult who all deemed likely secondary to progression of parkinsons, she was ultimately discharged to short term alf from where she was admitted here with syncope. Here continues to be significantly weak, able to sit with assistance to side of bed after ROM exercises to loosen up stiff extremities. Per was walking with walker at SNF a few days prior to arrival here. PT recommending SNF, suspect deconditioning on top of progression of parkinsons as reason for worsening weakness at this time - continue midodrine 10mg TID, will allow for some component of supine HTN to prevent orthostatic episodes, hold for SBP >180 - Will trial 500 mg LR bolus today - trial abdominal binder, compression stockings when getting up - hold HTN meds, monitor supine HTN - PT/OT recommending SNF - continue sinemet - Anticipate dc tomorrow Assessment & Plan (07/06/2025 4:50 PM CDT): Hx Parkinson's on Sinemet. Presents with recurrent syncope and orthostatic hypotension despite stopping HTN meds and starting midodrine (started recently by washerette machine operator). Recent TTE in April 2025 showed severe pulm HTN, mild AI/TR, EF 70-75%. C/f Parkinson's autonomic dysfunction and less likely medication [facility] in ED unable to be fully completed (unable to stand d/t weakness) but noted to have almost 20 point drop in SBP from lying to sitting Had hospital admission in May of this year for worsening LE weakness, got extensive workup with joint xrays, MRI lumbar spine and neurology consult who all deemed likely secondary to progression of parkinsons, she was ultimately discharged to short term alf from where she was admitted here with syncope. Here continues to be significantly weak, able to sit with assistance to side of bed after ROM exercises to loosen up stiff extremities. Per was walking with walker at SNF a few days prior to arrival here. PT recommending SNF, suspect deconditioning on top of progression of parkinsons as reason for worsening weakness at this time - continue midodrine 10mg TID, will allow for some component of supine HTN to prevent orthostatic episodes, hold for SBP >180 - trial abdominal binder, compression stockings when getting up - hold HTN meds, monitor supine HTN - PT/OT - continue sinemet Assessment & Plan (07/05/2025 11:22 AM CDT): Hx Parkinson's on Sinemet. Presents with recurrent syncope and orthostatic hypotension despite stopping HTN meds and starting midodrine (started recently by washerette machine operator). Recent TTE in April 2025 showed severe pulm HTN, mild AI/TR, EF 70-75%. C/f Parkinson's autonomic dysfunction and less likely medication [facility] in ED unable to be fully completed (unable to stand d/t weakness) but noted to have almost 20 point drop in SBP from lying to sitting Had hospital admission in May of this year for worsening LE weakness, got extensive workup with joint xrays, MRI lumbar spine and neurology consult who all deemed likely secondary to progression of parkinsons, she was ultimately discharged to short term alf from where she was admitted here with syncope. Here continues to be significantly weak, able to sit with assistance to side of bed after ROM exercises to loosen up stiff extremities. Per was walking with walker at SNF a few days prior to arrival here. PT recommending SNF, suspect deconditioning on top of progression of parkinsons as reason for worsening weakness at this time - continue midodrine 10mg TID, will allow for some component of supine HTN to prevent orthostatic episodes, hold for SBP >180 - trial abdominal binder, compression stockings when getting up - hold HTN meds, monitor supine HTN - PT/OT - continue sinemet Assessment & Plan (07/04/2025 2:40 PM CDT): Hx Parkinson's on Sinemet. Presents with recurrent syncope and orthostatic hypotension despite stopping HTN meds and starting midodrine (started recently by washerette machine operator). Recent TTE in April 2025 showed severe pulm HTN, mild AI/TR, EF 70-75%. C/f Parkinson's autonomic dysfunction and less likely medication [facility] in ED unable to be fully completed (unable to stand d/t weakness) but noted to have almost 20 point drop in SBP from lying to sitting Had hospital admission in May of this year for worsening LE weakness, got extensive workup with joint xrays, MRI lumbar spine and neurology consult who all deemed likely secondary to progression of parkinsons, she was ultimately discharged to short term alf from where she was admitted here with syncope. Here continues to be significantly weak, able to sit with assistance to side of bed after ROM exercises to loosen up stiff extremities. Per was walking with walker at SNF a few days prior to arrival here. PT recommending SNF, suspect deconditioning on top of progression of parkinsons as reason for worsening weakness at this time - continue midodrine 10mg TID, will allow for some component of supine HTN to prevent orthostatic episodes - trial abdominal binder, compression stockings - hold HTN meds, monitor supine HTN - PT/OT - continue sinemet Assessment & Plan (07/03/2025 4:02 PM CDT): Hx Parkinson's on Sinemet. Presents with recurrent syncope and orthostatic hypotension despite stopping HTN meds and starting midodrine (started recently by washerette machine operator). Recent TTE in April 2025 showed severe pulm HTN, mild AI/TR, EF 70-75%. C/f Parkinson's autonomic dysfunction and less likely medication [facility] in ED unable to be fully completed (unable to stand d/t weakness) but noted to have almost 20 point drop in SBP from lying to sitting Had hospital admission in May of this year for worsening LE weakness, got extensive workup with joint xrays, MRI lumbar spine and neurology consult who all deemed likely secondary to progression of parkinsons, she was ultimately discharged to short term alf from where she was admitted here with syncope. Here continues to be significantly weak, unable to sit or stand without assistance at this time. Per was walking with walker at SNF a few days prior to arrival here. PT recommending SNF, suspect deconditioning on top of progression of parkinsons as reason for worsening weakness at this time - trial midodrine 10mg TID, will allow for some component of supine HTN to prevent orthostatic episodes - trial abdominal binder, compression stockings - hold HTN meds, monitor supine HTN - PT/OT - continue sinemet - CT head given fall prior to arrival with reported head strike Assessment & Plan (07/02/2025 3:53 PM CDT): Hx Parkinson's on Sinemet. Presents with recurrent syncope and orthostatic hypotension despite stopping HTN meds and starting midodrine (started recently by washerette machine operator). Recent TTE in April 2025 showed severe pulm HTN, mild AI/TR, EF 70-75%. C/f Parkinson's autonomic dysfunction and less likely medication [facility] in ED unable to be fully completed (unable to stand d/t weakness) but noted to have almost 20 point drop in SBP from lying to sitting - trial midodrine 10mg TID, will allow for some component of supine HTN to prevent orthostatic episodes - trial abdominal binder, compression stockings - hold HTN meds, monitor supine HTN - PT/OT - telemetry - continue sinemet Assessment & Plan (07/01/2025 4:35 PM CDT): Hx Parkinson's on Sinemet. Presents with recurrent syncope and orthostatic hypotension despite stopping HTN meds and starting midodrine. Recent TTE in April 2025 showed severe pulm HTN, mild AI/TR, EF 70-75%. C/f Parkinson's autonomic dysfunction vs side effect of Sinemet, or both. - orthostatics in ED unable to be fully completed (unable to stand d/t weakness) but noted to have almost 20 point drop in SBP from lying to sitting - no improvement with midodrine 5 TID as outpatient, will trial increase of 10 TID as outpatient cardiology recommended 06/30 - hold HTN meds, monitor supine HTN - continue Sinemet for now. Consider Neurology c/s in AM to discuss if this should be continued - PT/OT - telemetry Pulmonary hypertension 10/07/2024 Chronic diastolic heart failure 10/07/2024 Assessment & Plan (07/08/2025 1:22 PM CDT): TTE April 2025 showed severe pulm HTN, mild AI/TR, EF 70-75%. Recently taken off GDMT by Cardiology d/t orthostatic hypotension - continue holding GDMT, will likely not be prescribed on discharge Assessment & Plan (07/07/2025 12:33 PM CDT): TTE April 2025 showed severe pulm HTN, mild AI/TR, EF 70-75%. Recently taken off GDMT by Cardiology d/t orthostatic hypotension - continue holding GDMT, will likely not be prescribed on discharge Assessment & Plan (07/06/2025 4:50 PM CDT): TTE April 2025 showed severe pulm HTN, mild AI/TR, EF 70-75%. Recently taken off GDMT by Cardiology d/t orthostatic hypotension - continue holding GDMT, will likely not be prescribed on discharge Assessment & Plan (07/05/2025 11:22 AM CDT): TTE April 2025 showed severe pulm HTN, mild AI/TR, EF 70-75%. Recently taken off GDMT by Cardiology d/t orthostatic hypotension - continue holding GDMT Assessment & Plan (07/04/2025 2:40 PM CDT): TTE April 2025 showed severe pulm HTN, mild AI/TR, EF 70-75%. Recently taken off GDMT by Cardiology d/t orthostatic hypotension - continue holding GDMT Assessment & Plan (07/03/2025 4:02 PM CDT): TTE April 2025 showed severe pulm HTN, mild AI/TR, EF 70-75%. Recently taken off GDMT by Cardiology d/t orthostatic hypotension - now with supine HTN however given advanced age will allow permissed HTN given ongoing syncopal episodes - continue holding GDMT Assessment & Plan (07/02/2025 3:53 PM CDT): TTE April 2025 showed severe pulm HTN, mild AI/TR, EF 70-75%. Recently taken off GDMT by Cardiology d/t orthostatic hypotension - now with supine HTN however given advanced age will allow permissed HTN given ongoing syncopal episodes - continue holding GDMT Assessment & Plan (07/01/2025 4:22 PM CDT): TTE April 2025 showed severe pulm HTN, mild AI/TR, EF 70-75%. - recently taken off GDMT by Cardiology d/t orthostatic hypotension - now with supine HTN however given advanced age will allow permissed HTN given ongoing syncopal episodes - continue holding GDMT Intractable headache, unspec ified chronicity pattern, unspecified headache type 08/22/2024 Assessment & Plan (07/08/2025 1:22 PM CDT): Follows with Neurology, on Tegretol and monthly Emgality injections. C/o chronic CORTES in ED but improved with Tegretol and APAP. - continue home tegretol - prn APAP, esgic, IV migraine cocktail Assessment & Plan (07/07/2025 12:33 PM CDT): Follows with Neurology, on Tegretol and monthly Emgality injections. C/o chronic CORTES in ED but improved with Tegretol and APAP. - continue home tegretol - prn APAP, esgic, IV migraine cocktail Assessment & Plan (07/06/2025 4:50 PM CDT): Follows with Neurology, on Tegretol and monthly Emgality injections. C/o chronic CORTES in ED but improved with Tegretol and APAP. - continue home tegretol - prn APAP, esgic, IV migraine cocktail Assessment & Plan (07/05/2025 11:22 AM CDT): Follows with Neurology, on Tegretol and monthly Emgality injections. C/o chronic CORTES in ED but improved with Tegretol and APAP. - continue home tegretol - prn APAP, esgic Assessment & Plan (07/04/2025 2:40 PM CDT): Follows with Neurology, on Tegretol and monthly Emgality injections. C/o chronic CORTES in ED but improved with Tegretol and APAP. - continue home tegretol - prn APAP, esgic Assessment & Plan (07/03/2025 4:02 PM CDT): Follows with Neurology, on Tegretol and monthly Emgality injections. C/o chronic CORTES in ED but improved with Tegretol and APAP. - continue home tegretol - prn APAP, esgic Assessment & Plan (07/02/2025 3:53 PM CDT): Follows with Neurology, on Tegretol and monthly Emgality injections. C/o chronic CORTES in ED but improved with Tegretol and APAP. - continue home tegretol - prn APAP Assessment & Plan (07/01/2025 4:22 PM CDT): Follows with Neurology, on Tegretol and monthly Emgality injections. C/o chronic CORTES in ED but improved with Tegretol and APAP. - continue home tegretol - prn APAP Weakness of right lower extremity 04/12/2024 Chronic migraine w/o aura w/ o status migrainosus, not intractable 12/17/2023 Other cervical disc degenera tion, unspecified cervical region 12/17/2023 Type 2 diabetes mellitus wit h diabetic chronic kidney disease 12/17/2023 Type 2 diabetes mellitus with diabetic polyneuro brian 12/17/2023 Orthostatic hypotension 11/25/2023 Assessment & Plan (07/08/2025 1:22 PM CDT): Hx Parkinson's on Sinemet. Presents with recurrent syncope and orthostatic hypotension despite stopping HTN meds and starting midodrine (started recently by washerette machine operator). Recent TTE in April 2025 showed severe pulm HTN, mild AI/TR, EF 70-75%. C/f Parkinson's autonomic dysfunction and less likely medication [facility] in ED unable to be fully completed (unable to stand d/t weakness) but noted to have almost 20 point drop in SBP from lying to sitting Had hospital admission in May of this year for worsening LE weakness, got extensive workup with joint xrays, MRI lumbar spine and neurology consult who all deemed likely secondary to progression of parkinsons, she was ultimately discharged to short term alf from where she was admitted here with syncope. Here continues to be significantly weak, able to sit with assistance to side of bed after ROM exercises to loosen up stiff extremities. Per was walking with walker at SNF a few days prior to arrival here. PT recommending SNF, suspect deconditioning on top of progression of parkinsons as reason for worsening weakness at this time - continue midodrine 10mg TID, will allow for some component of supine HTN to prevent orthostatic episodes, hold for SBP >180 - Will trial 500 mg LR bolus today - trial abdominal binder, compression stockings when getting up - hold HTN meds, monitor supine HTN - PT/OT recommending SNF - continue sinemet - Anticipate dc today pending SNF Assessment & Plan (07/07/2025 12:33 PM CDT): Hx Parkinson's on Sinemet. Presents with recurrent syncope and orthostatic hypotension despite stopping HTN meds and starting midodrine (started recently by washerette machine operator). Recent TTE in April 2025 showed severe pulm HTN, mild AI/TR, EF 70-75%. C/f Parkinson's autonomic dysfunction and less likely medication [facility] in ED unable to be fully completed (unable to stand d/t weakness) but noted to have almost 20 point drop in SBP from lying to sitting Had hospital admission in May of this year for worsening LE weakness, got extensive workup with joint xrays, MRI lumbar spine and neurology consult who all deemed likely secondary to progression of parkinsons, she was ultimately discharged to short term alf from where she was admitted here with syncope. Here continues to be significantly weak, able to sit with assistance to side of bed after ROM exercises to loosen up stiff extremities. Per was walking with walker at SNF a few days prior to arrival here. PT recommending SNF, suspect deconditioning on top of progression of parkinsons as reason for worsening weakness at this time - continue midodrine 10mg TID, will allow for some component of supine HTN to prevent orthostatic episodes, hold for SBP >180 - Will trial 500 mg LR bolus today - trial abdominal binder, compression stockings when getting up - hold HTN meds, monitor supine HTN - PT/OT recommending SNF - continue sinemet - Anticipate dc tomorrow Assessment & Plan (07/06/2025 4:50 PM CDT): Hx Parkinson's on Sinemet. Presents with recurrent syncope and orthostatic hypotension despite stopping HTN meds and starting midodrine (started recently by washerette machine operator). Recent TTE in April 2025 showed severe pulm HTN, mild AI/TR, EF 70-75%. C/f Parkinson's autonomic dysfunction and less likely medication [facility] in ED unable to be fully completed (unable to stand d/t weakness) but noted to have almost 20 point drop in SBP from lying to sitting Had hospital admission in May of this year for worsening LE weakness, got extensive workup with joint xrays, MRI lumbar spine and neurology consult who all deemed likely secondary to progression of parkinsons, she was ultimately discharged to short term alf from where she was admitted here with syncope. Here continues to be significantly weak, able to sit with assistance to side of bed after ROM exercises to loosen up stiff extremities. Per was walking with walker at SNF a few days prior to arrival here. PT recommending SNF, suspect deconditioning on top of progression of parkinsons as reason for worsening weakness at this time - continue midodrine 10mg TID, will allow for some component of supine HTN to prevent orthostatic episodes, hold for SBP >180 - trial abdominal binder, compression stockings when getting up - hold HTN meds, monitor supine HTN - PT/OT - continue sinemet Assessment & Plan (07/05/2025 11:22 AM CDT): Hx Parkinson's on Sinemet. Presents with recurrent syncope and orthostatic hypotension despite stopping HTN meds and starting midodrine (started recently by washerette machine operator). Recent TTE in April 2025 showed severe pulm HTN, mild AI/TR, EF 70-75%. C/f Parkinson's autonomic dysfunction and less likely medication [facility] in ED unable to be fully completed (unable to stand d/t weakness) but noted to have almost 20 point drop in SBP from lying to sitting Had hospital admission in May of this year for worsening LE weakness, got extensive workup with joint xrays, MRI lumbar spine and neurology consult who all deemed likely secondary to progression of parkinsons, she was ultimately discharged to short term alf from where she was admitted here with syncope. Here continues to be significantly weak, able to sit with assistance to side of bed after ROM exercises to loosen up stiff extremities. Per was walking with walker at SNF a few days prior to arrival here. PT recommending SNF, suspect deconditioning on top of progression of parkinsons as reason for worsening weakness at this time - continue midodrine 10mg TID, will allow for some component of supine HTN to prevent orthostatic episodes, hold for SBP >180 - trial abdominal binder, compression stockings when getting up - hold HTN meds, monitor supine HTN - PT/OT - continue sinemet Assessment & Plan (07/04/2025 2:40 PM CDT): Hx Parkinson's on Sinemet. Presents with recurrent syncope and orthostatic hypotension despite stopping HTN meds and starting midodrine (started recently by washerette machine operator). Recent TTE in April 2025 showed severe pulm HTN, mild AI/TR, EF 70-75%. C/f Parkinson's autonomic dysfunction and less likely medication [facility] in ED unable to be fully completed (unable to stand d/t weakness) but noted to have almost 20 point drop in SBP from lying to sitting Had hospital admission in May of this year for worsening LE weakness, got extensive workup with joint xrays, MRI lumbar spine and neurology consult who all deemed likely secondary to progression of parkinsons, she was ultimately discharged to short term alf from where she was admitted here with syncope. Here continues to be significantly weak, able to sit with assistance to side of bed after ROM exercises to loosen up stiff extremities. Per was walking with walker at SNF a few days prior to arrival here. PT recommending SNF, suspect deconditioning on top of progression of parkinsons as reason for worsening weakness at this time - continue midodrine 10mg TID, will allow for some component of supine HTN to prevent orthostatic episodes - trial abdominal binder, compression stockings - hold HTN meds, monitor supine HTN - PT/OT - continue sinemet Assessment & Plan (07/03/2025 4:02 PM CDT): Hx Parkinson's on Sinemet. Presents with recurrent syncope and orthostatic hypotension despite stopping HTN meds and starting midodrine (started recently by washerette machine operator). Recent TTE in April 2025 showed severe pulm HTN, mild AI/TR, EF 70-75%. C/f Parkinson's autonomic dysfunction and less likely medication [facility] in ED unable to be fully completed (unable to stand d/t weakness) but noted to have almost 20 point drop in SBP from lying to sitting Had hospital admission in May of this year for worsening LE weakness, got extensive workup with joint xrays, MRI lumbar spine and neurology consult who all deemed likely secondary to progression of parkinsons, she was ultimately discharged to short term alf from where she was admitted here with syncope. Here continues to be significantly weak, unable to sit or stand without assistance at this time. Per was walking with walker at SNF a few days prior to arrival here. PT recommending SNF, suspect deconditioning on top of progression of parkinsons as reason for worsening weakness at this time - trial midodrine 10mg TID, will allow for some component of supine HTN to prevent orthostatic episodes - trial abdominal binder, compression stockings - hold HTN meds, monitor supine HTN - PT/OT - continue sinemet - CT head given fall prior to arrival with reported head strike Assessment & Plan (07/02/2025 3:53 PM CDT): Hx Parkinson's on Sinemet. Presents with recurrent syncope and orthostatic hypotension despite stopping HTN meds and starting midodrine (started recently by washerette machine operator). Recent TTE in April 2025 showed severe pulm HTN, mild AI/TR, EF 70-75%. C/f Parkinson's autonomic dysfunction and less likely medication [facility] in ED unable to be fully completed (unable to stand d/t weakness) but noted to have almost 20 point drop in SBP from lying to sitting - trial midodrine 10mg TID, will allow for some component of supine HTN to prevent orthostatic episodes - trial abdominal binder, compression stockings - hold HTN meds, monitor supine HTN - PT/OT - telemetry - continue sinemet Assessment & Plan (07/01/2025 4:35 PM CDT): Hx Parkinson's on Sinemet. Presents with recurrent syncope and orthostatic hypotension despite stopping HTN meds and starting midodrine. Recent TTE in April 2025 showed severe pulm HTN, mild AI/TR, EF 70-75%. C/f Parkinson's autonomic dysfunction vs side effect of Sinemet, or both. - orthostatics in ED unable to be fully completed (unable to stand d/t weakness) but noted to have almost 20 point drop in SBP from lying to sitting - no improvement with midodrine 5 TID as outpatient, will trial increase of 10 TID as outpatient cardiology recommended 06/30 - hold HTN meds, monitor supine HTN - continue Sinemet for now. Consider Neurology c/s in AM to discuss if this should be continued - PT/OT - telemetry Age-related physical debility 11/22/2023 Assessment & Plan (12/27/2023 1:32 PM COLOR PRINTER OPERATOR): -new diagnosis -reported in bilateral lower extremities [...] 11/13/2022 Acquired hypothyroidism 07/04/2022 Assessment & Plan (07/08/2025 1:22 PM CDT): - continue home synthroid Assessment & Plan (07/07/2025 12:33 PM CDT): - continue home synthroid Assessment & Plan (07/06/2025 4:50 PM CDT): - continue home synthroid Assessment & Plan (07/05/2025 11:22 AM CDT): - continue home synthroid Assessment & Plan (07/04/2025 2:40 PM CDT): - continue home synthroid Assessment & Plan (07/03/2025 4:02 PM CDT): - continue home synthroid Assessment & Plan (07/02/2025 3:53 PM CDT): - continue home synthroid Assessment & Plan (07/01/2025 4:22 PM CDT): - continue home synthroid Assessment & Plan (12/27/2023 1:35 PM COLOR PRINTER OPERATOR): -chronic -previously taking 25 mcg of levothyroxine -discontinued during hospitalization from 11/22/2023-11/25/[facility]23 [facility] (current) use of aspirin 01/10/2022 Generalized edema 11/02/2021 Assessment & Plan (11/02/2021 10:33 AM COLOR PRINTER OPERATOR): Check tsh Cbc bnp; for eval Try restrict salt Acute bilateral low back pain without sciatica 1 Assessment & Plan (11/02/2021 10:39 AM COLOR PRINTER OPERATOR): Trial pt to see if can help [...] History of falling 12/12/2020 Iron deficiency anemia carolina zavala to inadequate dietary iron intake 06/03/2020 Assessment & Plan (11/02/2021 10:34 AM COLOR PRINTER OPERATOR): Recheck to confirm not worseining prior xstool hem neg Assessment & Plan (06/16/2021 10:38 AM CDT): Iron up to iron sat up to 16 and hgb to 11.5 and geteting to nl and cont iron and check Assessment & Plan (01/10/2021 11:25 AM COLOR PRINTER OPERATOR): blod cnts p a little and I cj stable stay on iron as on for nwo and seclf chweck Assessment & Plan (09/07/2020 1:28 PM COLOR PRINTER OPERATOR): Iron stil low and takes mvi with [...] drugs Assessment & Plan (01/01/2025 10:10 AM COLOR PRINTER OPERATOR): Chemistry Lab Results Component Value Date SODIUM [...] needed. Assessment & Plan (11/02/2021 10:31 AM COLOR PRINTER OPERATOR): Creat sctable and due for 24 hr [...] kidneys. Assessment & Plan (01/06/2019 5:28 PM COLOR PRINTER OPERATOR): Worsening some. CC down to 46 from [...] diet Assessment & Plan (01/10/2021 11:27 AM COLOR PRINTER OPERATOR): Your cholesterol in the form of ldl [...] diet Assessment & Plan (09/15/2019 11:25 AM COLOR PRINTER OPERATOR): ldl at 58 and great no chanes [...] 08/19/2018 Assessment & Plan (11/12/2022 3:05 PM COLOR PRINTER OPERATOR): The patient was counseled on a heart-healthy, [...] care. Assessment & Plan (11/02/2021 10:31 AM COLOR PRINTER OPERATOR): a1c at 5.8 and near nl Diabetes [...] months Assessment & Plan (01/10/2021 11:22 AM COLOR PRINTER OPERATOR): Cr clear up to 50 from 35. [...] kidneys. Assessment & Plan (09/07/2020 1:27 PM COLOR PRINTER OPERATOR): A`1c nl at 5.6 and will stopthe [...] care. Assessment & Plan (09/15/2019 11:24 AM COLOR PRINTER OPERATOR): screeens for renal funcniton stabl eto better [...] dec Assessment & Plan (01/06/2019 5:26 PM COLOR PRINTER OPERATOR): The patient was counseled on a heart-healthy, [...] Overview (02/09/2017): HYPERTENSION NOS Assessment & Plan (07/08/2025 1:22 PM CDT): TTE April 2025 showed severe pulm HTN, mild AI/TR, EF 70-75%. Recently taken off GDMT by Cardiology d/t orthostatic hypotension - continue holding GDMT, will likely not be prescribed on discharge Assessment & Plan (07/07/2025 12:33 PM CDT): TTE April 2025 showed severe pulm HTN, mild AI/TR, EF 70-75%. Recently taken off GDMT by Cardiology d/t orthostatic hypotension - continue holding GDMT, will likely not be prescribed on discharge Assessment & Plan (07/06/2025 4:50 PM CDT): TTE April 2025 showed severe pulm HTN, mild AI/TR, EF 70-75%. Recently taken off GDMT by Cardiology d/t orthostatic hypotension - continue holding GDMT, will likely not be prescribed on discharge Assessment & Plan (07/05/2025 11:22 AM CDT): TTE April 2025 showed severe pulm HTN, mild AI/TR, EF 70-75%. Recently taken off GDMT by Cardiology d/t orthostatic hypotension - continue holding GDMT Assessment & Plan (07/04/2025 2:40 PM CDT): TTE April 2025 showed severe pulm HTN, mild AI/TR, EF 70-75%. Recently taken off GDMT by Cardiology d/t orthostatic hypotension - continue holding GDMT Assessment & Plan (07/03/2025 4:02 PM CDT): TTE April 2025 showed severe pulm HTN, mild AI/TR, EF 70-75%. Recently taken off GDMT by Cardiology d/t orthostatic hypotension - now with supine HTN however given advanced age will allow permissed HTN given ongoing syncopal episodes - continue holding GDMT Assessment & Plan (07/02/2025 3:53 PM CDT): TTE April 2025 showed severe pulm HTN, mild AI/TR, EF 70-75%. Recently taken off GDMT by Cardiology d/t orthostatic hypotension - now with supine HTN however given advanced age will allow permissed HTN given ongoing syncopal episodes - continue holding GDMT Assessment & Plan (07/01/2025 4:22 PM CDT): TTE April 2025 showed severe pulm HTN, mild AI/TR, EF 70-75%. - recently taken off GDMT by Cardiology d/t orthostatic hypotension - now with supine HTN however given advanced age will allow permissed HTN given ongoing syncopal episodes - continue holding GDMT Assessment & Plan (04/21/2025 12:32 PM CDT): Recommend DASH diet, heart-healthy lifestyle, exercise. Discussed the risks of hypertension. Assessment & Plan (01/21/2025 11:56 AM CDT): Recommend DASH diet, heart-healthy lifestyle, exercise. Discussed the risks of hypertension. Assessment & Plan (01/01/2025 10:50 AM COLOR PRINTER OPERATOR): BP Readings from Last 3 Encounters: 01/01/25 [...] hypertension. Assessment & Plan (12/27/2023 1:31 PM COLOR PRINTER OPERATOR): -chronic, suboptimally controlled -currently takes Coreg daily [...] bp touch high and will recheck at [facility] and [facility] in. And bring in [...] controlled. Assessment & Plan (01/10/2021 11:21 AM COLOR PRINTER OPERATOR): bp good and a1c up to 6.1 [...] hypertension. Assessment & Plan (09/15/2019 11:23 AM COLOR PRINTER OPERATOR): The bp good and th3 a1c neqr [...] bp. Assessment & Plan (01/06/2019 5:27 PM COLOR PRINTER OPERATOR): Recommend DASH diet, heart-healthy lifestyle, exercise. Discussed [...] hypertension. Assessment & Plan (10/18/2017 10:30 AM COLOR PRINTER OPERATOR): bp good and no chagesHypertension, Medical treament [...] care. Assessment & Plan (01/01/2025 10:03 AM COLOR PRINTER OPERATOR): Chronic, stable, and at goal of A1c [...] diagnosis of diabetes in children. According to [place] [employer] (ADA) guidelines, hemoglobin A1c <7.0% [...] diagnosis of diabetes in children. According to [place] [employer] (ADA) guidelines, hemoglobin A1c <7.0% [...] pyr'ly Assessment & Plan (01/10/2021 11:24 AM COLOR PRINTER OPERATOR): Urine protetin cme up to 192 and up. On meds to help and cotn as on for now and check Assessment & Plan (06/03/2020 3:42 PM CDT): Dropping back on honey to 2.5 Given renal and bp and k some high will check in futureif ka goes up any alexis need to reduce to stop the alldactone Assessment & Plan (09/15/2019 11:24 AM COLOR PRINTER OPERATOR): lurine protein down to 4.7 and Very [...] care. Assessment & Plan (10/18/2017 10:31 AM COLOR PRINTER OPERATOR): a1c at 6.2 and 6.5 diabetes. So [...] Problem Noted Date Diagnosed Date Resolved Date Chest pain 07/01/2025 07/06/2025 Assessment & Plan (07/06/2025 4:50 PM CDT): C/o chest pain overnight of admission with unremarkable EKG and downtrending trop (30->25). Also endorsed with washerette machine operator recently who deemed likely MSK and also noted further ischemic or invasive workup was deferred d/t pt advanced age and comorbidities. Currently chest pain free, tele with sinus bradycardia rate in 50s Assessment & Plan (07/05/2025 11:22 AM CDT): C/o chest pain overnight with unremarkable EKG and downtrending trop (30->25). Also endorsed with washerette machine operator recently who deemed likely MSK and also noted further ischemic or invasive workup was deferred d/t pt advanced age and comorbidities. Currently chest pain free, tele with sinus bradycardia rate in 50s - repeat EKG and trop if CP returns Assessment & Plan (07/04/2025 2:40 PM CDT): C/o chest pain overnight with unremarkable EKG and downtrending trop (30->25). Also endorsed with washerette machine operator recently who deemed likely MSK and also noted further ischemic or invasive workup was deferred d/t pt advanced age and comorbidities. Currently chest pain free, tele with sinus bradycardia rate in 50s - repeat EKG and trop if CP returns Assessment & Plan (07/03/2025 4:02 PM CDT): C/o chest pain overnight with unremarkable EKG and downtrending trop (30->25). Also endorsed with washerette machine operator recently who deemed likely MSK and also noted further ischemic or invasive workup was deferred d/t pt advanced age and comorbidities. Currently chest pain free, tele with sinus bradycardia rate in 50s - repeat EKG and trop if CP returns Assessment & Plan (07/02/2025 3:53 PM CDT): C/o chest pain overnight with unremarkable EKG and downtrending trop (30->25). Also endorsed with washerette machine operator recently who deemed likely MSK and also noted further ischemic or invasive workup was deferred d/t pt advanced age and comorbidities. Currently chest pain free - telemetry as above - repeat EKG and trop if CP returns Assessment & Plan (07/01/2025 4:22 PM CDT): C/o chest pain overnight with unremarkable EKG and downtrending trop (30->25). - now denies CP - telemetry as above - repeat EKG and trop if CP returns - of note, recent admission to OSH for CP with negative workup. Per d/w cardiology, further ischemic or invasive workup was deferred d/t pt advanced age and comorbidities Acute chest pain 04/10/2025 04/21/2025 Near syncope 10/07/2024 04/21/2025 Acute cystitis without hematuria 10/07/2024 01/21/2025 Assessment & Plan (01/01/2025 10:01 AM COLOR PRINTER OPERATOR): Chronic problem, exacerbated at this time. Point of care urinalysis today: Repeat urine culture Initiate antibiotics at this time based on most recent culture data: Rx ciprofloxacin 500 mg twice a day for 5 days Body mass index (BMI) of 23. 0 to 23.9 in adult 12/27/2023 06/11/2024 Assessment & Plan (12/27/2023 1:39 PM COLOR PRINTER OPERATOR): Wt Readings from Last 3 Encounters: 11/22/23 [...] hypertension. Assessment & Plan (11/02/2021 10:32 AM COLOR PRINTER OPERATOR): Bp; stable anld keep meds sameHypertension, Medical [...] diet Assessment & Plan (01/10/2021 11:26 AM COLOR PRINTER OPERATOR): Work to stoppoing wt gain Benign hypertensive kidney d isease with chronic kidney disease stage I through stage IV, or unspecified(403.10) 06/03/2020 03/06/2022 Assessment & Plan (11/02/2021 10:33 AM COLOR PRINTER OPERATOR): Renal screen stable nad bp good and [...] bp. 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 bandaid after dial soap nguyen twice a day. Antibiotic oinment on and bakndaid to prtect tentus 7 yrs ago and up to date. No repeat needed for this low risk wound. Hyperlipidemia 09/22/2016 08/19/2018 Overview (02/09/2017): HYPERLIPIDEMIA NEC/NOS Assessment & Plan (10/18/2017 10:31 AM COLOR PRINTER OPERATOR): ldl at 59 and great and no [...] Encounters Date Type Department Care Team Description 07/28/2025 Telephone [facility] [address] [place] [address] Clau WhatleyniTHIERRY tracy 07/28/2025 Telephone [facility] at [address] [place] [address] Omar Briceño NP 07/24/2025 Telephone [facility] at [address] [place] [phone] Omar Briceño NP 07/15/2025 Telephone [facility] at [address] [place] [address] Fede Mills PA 07/10/2025 Telephone [facility] at [address] [place] [address] Omar Briceño NP 07/01/2025 Telephone [facility] at [address] [place] [address] Fede Mills PA 06/30/2025 1:13 PM CDT - 07/08/2025 3:[address] PM [address]T [address] [address] Lana Amor MD Kane, MD Toño Duncan, MD Valeriy Castillo Robert F. Jr., MD Real, MD Kristen Esparza, MD Duc Persaud, Jose Kraus MD Syncope, unspecified syncope type (Primary Dx); Chest pain, unspecified type; Parkinson's disease, unspecified whether dyskinesia present, unspecified whether manifestations fluctuate (HCC); Hypotension, unspecified hypotension type Discharge Disposition: Discharge to [facility] 06/29/2025 Telephone [facility] at [address] [place] [address] Omar Briceño NP 06/26/2025 Telephone [facility] at [address] [place] [phone] Fede Mills PA Additional Services Or Orders 06/25/2025 11:15 AM CDT Office Visit [facility] at [address] [place] [address] Omar Briceño NP Type 2 diabetes mellitus with microalbuminuria, without long-term current use of insulin (HCC) (Primary Dx); Hypertension, essential; Pure hypercholesterolemia; Iron deficiency anemia secondary to inadequate dietary iron intake; Stage 3a chronic kidney disease (HCC) 06/02/2025 Telephone [facility] at [address] [place] [address] Omar Briceño NP 05/19/2025 3:00 PM CDT Office Visit [facility] [address] [place] [phone] Cameron Marie NP Chronic migraine w/o aura w/o status migrainosus, not intractable (Primary Dx) 05/12/2025 Telephone [facility] at [address] [place] [address] Omar Briceño NP 05/09/2025 2:36 PM CDT - 05/09/2025 11:59 PM CDT Hospital Encounter [facility] Emergency, Room R Discharge Disposition: Discharge to home or self care 05/06/2025 12:02 PM CDT - 05/09/2025 2:59 PM CDT Hospital Encounter [facility] Acute Medicine [address] [place] [address] Angelica Eagle MD Kheirkhahan, Nazanin, MD Weakness (Primary Dx) Discharge Disposition: Discharge to SNF 05/06/2025 Telephone [facility] Primary Care at [address] [place] [address] Fede Mills PA Concerns for sudden weakness this morning from Last 3 Months Immunizations Immunization Administration [...] History Medical History Date Comments Diabetes mellitus Diabetes Hx Other Medical chol Hypertension Hypertension [...] often do you attend chur ch or sikh services? Never 05/07/2025 Do you belong to any clubs o r organizations such as restoration groups, unions, fraternal or athletic groups, or [...] time in the past 12 m [facility], were you homeless or living in a group home (including now)? No 05/07/2025 Social Connection and Isolation Panel Answer Date Recorded In a typical week, how many times do you talk on the phone with family, friends, or neighbors? More than three times a week 07/03/2025 How often do you get togethe r with friends or relatives? More than three times a week 07/03/2025 How often do you attend chur ch or sikh services? Never 07/03/2025 Do you belong to any clubs o r organizations such as restoration groups, unions, fraternal or athletic groups, or [...] time in the past 12 m [facility], were you homeless or living in a group home (including now)? 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 Gender Identity Not on file Sexual Orientation Not on file Obstetrics History Para Term AB IAB SAB Ectopic Multiple Livin g Live Births 4 3 3 Date Outcome GA Total Labor Labor/2nd/3rd Weight Sex Type Anes PTL Tresa A1 A5 Name Clin Term Term Term Last Filed Vital Signs Vital Sign Reading Time Taken Comments Blood Pressure 133/38 07/08/2025 12:05 PM CDT Pulse 61 07/08/2025 12:05 PM CDT Temperature 36.5 C (97.7 F) 07/08/2025 8:20 AM CDT Respiratory Rate 16 07/08/2025 8:20 AM CDT Oxygen Saturation 97% 07/08/2025 8:20 AM CDT Inhaled Oxygen Concentration - - Weight 72.1 kg (159 lb) 07/01/2025 8:53 PM CDT Height 154.9 cm (5' 0.98) 07/01/2025 8:53 PM CD T Body Mass Index 30.06 07/01/2025 8:53 PM CDT Plan of Treatment Health Maintenance Due Date Last Done Comments Osteoporosis Screening-Bone Density Scan 03/09/2007 03/09/2005 Albumin Creatinine Ratio, Urine 06/11/2025 06/11/2024, 11/03/2022, 12/30/2020, Additional history exists Dilated Eye Exam 06/25/2025 06/25/2023, , 06/04/2020, Additional history exists Covid-19 Vaccine (2024-12 6 season) 2025 07/24/2022, 02/03/2022, 02/03/2022, Additional history exists Influenza Vaccine (#1) 2025 , 08/09/2023, 07/11/2022, Additional history exists Hemoglobin A1C 07/24/2025 01/21/2025, 08/0 05/2024, 08/07/2023, Additional history exists Foot Exam 01/21/2026 01/21/2025, 01/03, 11/02/2021, Additional history exists Lipid Panel 01/21/2026 01/21/2025, 08/0 05/2024, 08/07/2023, Additional history exists Well Visit 65+ 01/21/2026 01/21/2025, 01/03, 07/04/2022, Additional history exists Depression Screening 06/30/2026 06/30/2025, 04/21/2025, 01/21/2025, Additional history exists Fall Risk Assessment 07/08/2026 07/08/2025, 04/21/2025, 01/21/2025, Additional history exists eGFR 07/08/2026 07/08/2025, 12/2024, 07/02/2025, Additional history exists DTaP/Tdap/Td Vaccine (3 - [...] Procedure Name Priority Date/Time Associated Diagnosis Comments EGFR Routine 07/08/2025 8:42 AM CDT BASIC METABOLIC PANEL Routine 07/08/2025 8:42 AM CDT POTASSIUM, WHOLE BLOOD Timed 07/07/2025 9:46 AM CDT EGFR Routine 07/07/2025 4:15 AM CDT DIFFERENTIAL AUTO Routine 07/07/2025 4:1 5 AM CDT CBC WITH AUTO DIFFERENTIAL Routine 07/07/2025 4:15 AM CDT BASIC METABOLIC PANEL Routine 07/07/2025 4:15 AM CDT MAGNESIUM Routine 07/07/2025 4:15 AM CDT PHOSPHORUS Routine 07/07/2025 4:[address] HEAD WO CONTRAST IP Routine 07/03/2025 5 :12 PM CDT EGFR Routine 07/02/2025 4:10 AM CDT MAGNESIUM Routine 07/02/2025 4:10 AM CDT BASIC METABOLIC PANEL Routine 07/02/2025 4:10 AM CDT POCT GLUCOSE DEVICE Routine 07/01/2025 5 :53 PM CDT POCT GLUCOSE DEVICE Routine 07/01/2025 1 1:21 AM CDT POCT GLUCOSE DEVICE Routine 07/01/2025 8 :14 AM CDT EGFR STAT 07/01/2025 5:56 AM CDT TROPONIN I HIGH-SENSITIVITY Routine 07/01/2025 5:56 AM CDT BASIC METABOLIC PANEL STAT 07/01/2025 5:56 AM CDT ECG 12-LEAD STAT 07/01/2025 5:05 AM CDT POCT GLUCOSE DEVICE Routine 07/01/2025 4 :18 AM CDT POCT GLUCOSE DEVICE Routine 07/01/2025 1 2:54 AM CDT POCT GLUCOSE DEVICE Routine 06/30/2025 1 0:23 PM CDT URINALYSIS, MICROSCOPIC ONLY STAT 06/30/2025 4:12 PM CDT URINALYSIS AND REFLEX TO MICROSCOPIC AND CULTURE STAT 06/30/2025 4:12 PM CDT XR CHEST PA LATERAL 2 VIEWS ED 06/30/2025 3:10 PM CDT TROPONIN I HIGH-SENSITIVITY STAT 06/30/2025 2:51 PM CDT THYROID FUNCTION CASCADE STAT 06/30/2025 2:51 PM CDT CARBAMAZEPINE LEVEL, TOTAL STAT 06/30/2025 2:51 PM CDT POCT GLUCOSE DEVICE Routine 06/30/2025 2 :17 PM CDT EGFR STAT 06/30/2025 2:15 PM CDT DIFFERENTIAL AUTO STAT 06/30/2025 2:1 5 PM CDT COMPREHENSIVE METABOLIC PANEL STAT 06/30/2025 2:15 PM CDT CBC WITH AUTO DIFFERENTIAL STAT 06/30/2025 2:15 PM CDT ECG 12-LEAD STAT 06/30/2025 1:30 PM CDT POTASSIUM LEVEL STAT 05/09/2025 11:41 AM CDT [...] AUTO DIFFERENTIAL STAT 05/06/2025 12:04 PM CDT HEMOGLOBIN A1C Routine 01/21/2025 3:11 PM [...] Recently Relevant to Health Maintenance Results * eGFR (07/08/2025 8:42 AM CDT) eGFR 60 >=60 mL/min/1. 73 [...] interpretive data was last reviewed 2021. Blood 07/08/2025 8:42 AM CDT 07/08/2025 9:14 AM CDT us Jose Xavier MD LAB BLOOD ORDERABLES F inal Result [facility] [address] [facility] Department [place] [address] * (ABNORMAL) Basic metabolic panel (07/08/2025 8:42 AM CDT) [facility] Signature Sodium 145 135 - 145 mmol/L Potassium, pl 4.8 3.3 - 4.9 mmol/L [facility] Chloride 108 97 - 110 mmol/L [facility] CO2 28 22 - 32 mmol/L [facility] Anion gap 9 2 - 15 mmol/L [facility] BUN 40(H) 6 - 25 mg/dL [facility] Creatinine 0.91 0.60 - 1.10 mg/dL [facility] Glucose 122 70 - 199 mg/dL [facility] Comment: Interpretive Data Fasting glucose >/= 126 [...] interpretive data was last revised 2022. Calcium 9.7 8.5 - 10.3 mg/dL [facility] Blood 07/08/2025 8:42 AM CDT 07/08/2025 9:14 AM CDT Jose Xavier MD LAB BLOOD ORDERABLES F inal Result Performing Organization Address City/[facility]/ZIP Co de Phone Number [facility] Department [place] [address] * (ABNORMAL) Potassium, whole blood (07/07/2025 9:46 AM CDT) Potassium, bld 5.1(H) 3.3 - 4.9 mmol/L Blood 07/07/2025 9:46 AM CDT 07/07/2025 10:01 AM CDT Jose Xavier MD LAB BLOOD ORDERABLES F inal Result Performing Organization Address [facility] Co de Phone Number [facility] Department [place] [address] * (ABNORMAL) eGFR (07/07/2025 4:15 AM CDT) eGFR 46(L) >=60 mL/min/1. 73 [...] interpretive data was last reviewed 2021. Blood 07/07/2025 4:15 AM CDT 07/07/2025 4:43 AM CDT Manuel Peterson MD LAB BLOOD ORDERABLES Final Resu lt [facility] [address] [facility] [place] [address] * Differential, auto (07/07/2025 4:15 AM CDT) Neutrophil abs 3.56 1.50 - 6.50 K/cumm Imm gran abs 0.06 0.00 - 0.10 K/cumm [facility] Lymphocyte abs 2.18 0.80 - 3.30 K/cumm [facility] Monocyte abs 0.58 0.20 - 0.80 K/cumm [facility] Eosinophil abs 0.10 0.00 - 0.50 K/cumm [facility] Basophil abs 0.02 0.00 - 0.10 K/cumm [facility] Neutrophil pct 54.9 % [facility] Comment: Interpretive Data Percent cell count reference ranges are not reported, since discordance with absolute values may lead to misinterpretation of CBC data. Current Interpretive Data was last revised on 2018. Imm gran pct 0.9 % [facility] Comment: Interpretive Data Percent cell count reference ranges are not reported, since discordance with absolute values may lead to misinterpretation of CBC data. Current Interpretive Data was last revised on 2018. Lymphocyte pct 33.5 % [facility] Comment: Interpretive Data Percent cell count reference ranges are not reported, since discordance with absolute values may lead to misinterpretation of CBC data. Current Interpretive Data was last revised on 2018. Monocyte pct 8.9 % [facility] Comment: Interpretive Data Percent cell count reference ranges are not reported, since discordance with absolute values may lead to misinterpretation of CBC data. Current Interpretive Data was last revised on 2018. Eosinophil pct 1.5 % [facility] Comment: Interpretive Data Percent cell count reference ranges are not reported, since discordance with absolute values may lead to misinterpretation of CBC data. Current Interpretive Data was last revised on 2018. Basophil pct 0.3 % [facility] Comment: Interpretive Data Percent cell count reference ranges are not reported, since discordance with absolute values may lead to misinterpretation of CBC data. Current Interpretive Data was last revised on 2018. Blood 07/07/2025 4:15 AM CDT 07/07/2025 4:44 AM CDT us Manuel Peterson MD LAB BLOOD ORDERABLES Final Resu lt [facility] [address] [facility] Department [place] [address] * (ABNORMAL) CBC with auto differential (07/07/2025 4:15 AM CDT) WBC 6.50 3.80 - 9.90 K/cumm Hgb 10.4(L) 11.9 - 15.5 g/dL [facility] Hct 32.9(L) 35.6 - 45.5 % [facility] Plt 243 150 - 400 K/cumm [facility] MPV 10.0 9.1 - 12.3 fL [facility] RBC 3.76(L) 3.90 - 5.20 M/cumm [facility] MCV 87.5 81.3 - 96.4 fL [facility] MCH 27.7 27.1 - 33.3 pg [facility] MCHC 31.6(L) 32.3 - 35.7 g/dL [facility] RDW CV 14.7 11.1 - 14.9 % [facility] RDW SD 47.4 35.7 - 48.1 fL [facility] NRBC abs 0.02(H) 0.00 - 0.01 K/cumm [facility] Blood 07/07/2025 4:15 AM CDT 07/07/2025 4:44 AM CDT Manuel Peterson MD LAB BLOOD ORDERABLES Final Resu lt Performing Organization Address [facility] Co de Phone Number [facility] [place] [address] * Phosphorus (07/07/2025 4:15 AM CDT) Phosphorus, pl 3.4 2.3 - 4.5 mg/dL Blood 07/07/2025 4:15 AM CDT 07/07/2025 4:43 AM CDT us Manuel Peterson MD LAB BLOOD ORDERABLES Final Resu lt Performing Organization Address [facility] de Phone Number [facility] [place] [address] * (ABNORMAL) Magnesium (07/07/2025 4:15 AM CDT) Pathologist [facility] Magnesium 2.9(H) 1.4 - 2.5 mg/dL Blood 07/07/2025 4:15 AM CDT 07/07/2025 4:43 AM CDT Manuel Peterson MD LAB BLOOD ORDERABLES Final Resu lt Performing Organization Address [facility] [place] [address] * (ABNORMAL) Basic metabolic panel (07/07/2025 4:15 AM CDT) Sodium 140 135 - 145 mmol/L Potassium, pl 5.2(H) 3.3 - 4.9 mmol/L [facility] Chloride 105 97 - 110 mmol/L [facility] CO2 30 22 - 32 mmol/L [facility] Anion gap 5 2 - 15 mmol/L [facility] BUN 43(H) 6 - 25 mg/dL [facility] Creatinine 1.14(H) 0.60 - 1.10 mg/dL [facility] Glucose 102 70 - 199 mg/dL [facility] Comment: Interpretive Data Fasting glucose >/= 126 [...] 2022. Calcium 9.5 8.5 - 10.3 mg/dL [facility] Blood 07/07/2025 4:15 AM CDT 07/07/2025 4:43 AM CDT Manuel Peterson MD LAB BLOOD ORDERABLES Final Resu lt [facility] [address] [facility] Department [place] [address] * CT Head WO Contrast (07/03/2025 5:12 PM CDT) Anatomical Region Laterality Modality Head and Neck N/A Computed Tomogra phy 07/03/2025 5:26 PM CDT Impressions 07/03/2025 5:34 PM CDT No acute intracranial abnormality. Dictated by: Nena Brice MD The radiology attending physician has personally reviewed this study, and had reviewed and/or edited this written report and agrees with it. Electronically signed by: Jack Parham MD Narrative 07/03/2025 5:34 PM CDT EXAMINATION: CT head without contrast HISTORY: 89-year-old with Parkinson's and recurrent syncope TECHNIQUE: CT of the head was performed with images acquired from skull base to vertex without intravenous contrast. COMPARISON: CT on 04/10/2025. FINDINGS: There is no acute intracranial hemorrhage. Ventricles are of normal size and morphology. Periventricular white matter hypodensities are nonspecific but may represent chronic microvascular ischemic changes. No mass effect or midline shift is present. The cho-white matter differentiation is normal. Bilateral lens replacements, otherwise visualized portions of the orbits are normal. The visualized portions of the mastoids are normal. The visualized portions of the paranasal sinuses are normal. No fractures are identified. Hyperostosis frontalis interna. Atherosclerotic calcification of the bilateral carotid siphons. Partial empty sella. Procedure Note Jack Parham MD - 07/03/2025 EXAMINATION: CT head without contrast HISTORY: 89-year-old with Parkinson's and recurrent syncope TECHNIQUE: CT of the head was performed with images acquired from skull base to vertex without intravenous contrast. COMPARISON: CT on 04/10/2025. FINDINGS: There is no acute intracranial hemorrhage. Ventricles are of normal size and morphology. Periventricular white matter hypodensities are nonspecific but may represent chronic microvascular ischemic changes. No mass effect or midline shift is present. The cho-white matter differentiation is normal. Bilateral lens replacements, otherwise visualized portions of the orbits are normal. The visualized portions of the mastoids are normal. The visualized portions of the paranasal sinuses are normal. No fractures are identified. Hyperostosis frontalis interna. Atherosclerotic calcification of the bilateral carotid siphons. Partial empty sella. IMPRESSION: No acute intracranial abnormality. Dictated by: Nena Brice MD The radiology attending physician has personally reviewed this study, and had reviewed and/or edited this written report and agrees with it. Electronically signed by: Jack Parham MD Manuel Peterson MD IMG CT PROCEDURES Final Result * eGFR (07/02/2025 4:10 AM CDT) eGFR 67 >=60 mL/min/1. 73 m2 Comment: Interpretive Data [...] interpretive data was last reviewed 2021. Blood 07/02/2025 4:10 AM CDT 07/02/2025 4:50 AM CDT Tierra De Souza NP LAB BLOOD ORDERABLES Final Result Performing Organization Address City/[facility]/ZIP Co de Phone Number [facility] [place] [address] * Magnesium (07/02/2025 4:10 AM CDT) Pathologist [facility] Magnesium 2.3 1.4 - 2.5 mg/dL Blood 07/02/2025 4:10 AM CDT 07/02/2025 4:50 AM CDT Tierra De Souza NP LAB BLOOD ORDERABLES Final Result [facility] Department [place] [address] * Basic metabolic panel (07/02/2025 4:10 AM CDT) Sodium 141 135 - 145 mmol/L Potassium, pl 4.5 3.3 - 4.9 mmol/L [facility] Chloride 107 97 - 110 mmol/L [facility] CO2 28 22 - 32 mmol/L [facility] Anion gap 6 2 - 15 mmol/L [facility] BUN 25 6 - 25 mg/dL [facility] Creatinine 0.83 0.60 - 1.10 mg/dL [facility] Glucose 95 70 - 199 mg/dL [facility] Comment: Interpretive Data Fasting glucose >/= 126 [...] 2022. Calcium 9.1 8.5 - 10.3 mg/dL [facility] Blood 07/02/2025 4:10 AM CDT 07/02/2025 4:50 AM CDT Tierra De Souza NP LAB BLOOD ORDERABLES Final Result Performing Organization Address [facility] Co de Phone Number [facility] Department [place] [address] * POCT glucose (07/01/2025 5:53 PM CDT) Glucose, POC 108 70 - 199 mg/dL Blood 07/01/2025 5:53 PM CDT 07/01/2025 5:53 PM CDT Darshana Real MD LAB POCT ORDERABLES - DEVICE Final Result [facility] Department [place] [address] * POCT glucose (07/01/2025 11:21 AM CDT) Glucose, POC 135 70 - 199 mg/dL Blood 07/01/2025 11:2 1 AM CDT 07/01/2025 11:21 AM CDT Darshana Real MD LAB POCT ORDERABLES - DEVICE Final Result Performing Organization Address [facility] de Phone Number [facility] [place] [address] * POCT glucose (07/01/2025 8:14 AM CDT) [facility] Glucose, POC 94 70 - 199 mg/dL Blood 07/01/2025 8:14 AM CDT 07/01/2025 8:14 AM CDT us Darshana Real MD LAB POCT ORDERABLES - DEVICE Final Result Performing Organization Address [facility] de Phone Number [facility] [place] [address] * (ABNORMAL) Troponin I high-sensitivity (07/01/2025 5:56 AM CDT) [facility] Trop I hs 25(H) <=17 ng/L Comment: Interpretive Data For further hscTnI resources including the diagnostic algorithm and an aid in interpretation, copy and paste this link: https://bjhlab.testcatalog.org/show/[email or web address] Current Interpretive Data last revised 2020. Blood 07/01/2025 5:56 AM CDT 07/01/2025 9:38 AM CDT us Desmond Crooks Jr., MD LAB BLOOD ORDERABLES F inal Result Performing Organization Address [facility] Co de Phone Number [facility] [place] [address] * eGFR (07/01/2025 5:56 AM CDT) [facility] eGFR 62 >=60 mL/min/1. 73 m2 Comment: Interpretive Data [...] interpretive data was last reviewed 2021. Blood 07/01/2025 5:56 AM CDT 07/01/2025 9:38 AM CDT us Desmond Crooks Jr., MD LAB BLOOD ORDERABLES F inal Result [facility] [place] [address] * (ABNORMAL) Basic metabolic panel (07/01/2025 5:56 AM CDT) [facility] Signature Sodium 139 135 - 145 mmol/L Potassium, pl 4.5 3.3 - 4.9 mmol/L [facility] Comment:Hemolyzed; Potassium value may be falsely elevated by as much as 0.6-1.0 mmol/L. Suggest redraw and reanalysis. Chloride 106 97 - 110 mmol/L [facility] CO2 24 22 - 32 mmol/L [facility] Anion gap 9 2 - 15 mmol/L [facility] BUN 31(H) 6 - 25 mg/dL [facility] Creatinine 0.89 0.60 - 1.10 mg/dL [facility] Glucose 94 70 - 199 mg/dL [facility] Comment: Interpretive Data Fasting glucose >/= 126 [...] 2022. Calcium 9.4 8.5 - 10.3 mg/dL [facility] Blood 07/01/2025 5:56 AM CDT 07/01/2025 9:38 AM CDT us Desmond Crooks Jr., MD LAB BLOOD ORDERABLES F inal Result Performing Organization Address City/[facility]/ZIP Co de Phone Number [facility] Department [place] [address] * ECG 12-LEAD (07/01/2025 5:05 AM CDT) Narrative [facility] - 07/01/2025 5:05 AM CDT Desmond Crooks Jr., MD 07/01/2025 5:06 AM ECG 12 lead Date/Time: 07/01/2025 5:05 AM Performed by: Desmond Crooks Jr., MD Authorized by: Desmond Crooks Jr., MD Quality: Tracing quality: Limited by artifact Rate: ECG rate: 64 ECG rate assessment: normal Rhythm: Rhythm: sinus rhythm Ectopy: Ectopy: none QRS: QRS axis: Normal QRS intervals: Normal Conduction: Conduction: normal ST segments: ST segments: Normal T waves: T waves: inverted Inverted: AVR Q waves: Q waves: AVR and V1 Previous ECG: Previous ECG: Compared to current Date of previous EC06/30/2025 Similarity: No change Interpretation: Interpretation: non-specific Recommended Follow-up: Recommended follow up: further workup in the ED us Desmond Crooks Jr., MD ECG ORDERABLES Final Result [facility] * POCT glucose (07/01/2025 4:18 AM CDT) Glucose, POC 92 70 - 199 mg/dL Blood 07/01/2025 4:18 AM CDT 07/01/2025 4:18 AM CDT Desmond Crooks Jr., MD LAB POCT ORDERABLES - DEVICE Final Result Performing Organization Address [facility] [facility] de Phone Number [facility] [place] [address] * POCT glucose (07/01/2025 12:54 AM CDT) Glucose, POC 106 70 - 199 mg/dL Blood 07/01/2025 12:5 4 AM CDT 07/01/2025 12:54 AM CDT Vaughn Lundberg MD LAB POCT ORDERABLES - DEV ICE Final Result Performing Organization Address [facility] de Phone Number [facility] [place] [address] * POCT glucose (06/30/2025 10:23 PM CDT) Glucose, POC 128 70 - 199 mg/dL Blood 06/30/2025 10:2 3 PM CDT 06/30/2025 10:23 PM CDT Vaughn Lundberg MD LAB POCT ORDERABLES - DEV ICE Final Result Performing Organization Address [facility] [place] [address] * (ABNORMAL) Urinalysis reflex to microscopic and culture Urine (06/30/2025 4:12 PM CDT) Color, ur Straw Yellow Clarity, ur Clear Clear [facility] Specific gravity, ur 1.021 1.003 - 1.030 [facility] pH, urine 6.0 [facility] Comment: Interpretive Data U rine pH is affected by diet, medications, systemic acid-base disturbances, and renal tubular function. pH may affect urinary stone formation. For example, urine pH below 6.0 may help reduce the tendency for calcium phosphate stones and pH greater than 6.0 may reduce the tendency for uric acid stone formation. Source: [facility] [place] Current Interpretive Data was last revised on 2017 Protein, ur ql 2+(A) Negative [facility] Glucose, ur ql Negative Negative [facility] Ketones, ur Negative Negative [facility] Bilirubin, ur Negative Negative [facility] Blood, ur Negative Negative [facility] Urobilinogen, ur <2.0 <2.0 mg/dL [facility] Nitrite, ur Negative Negative [facility] Leukocyte esterase, ur Trace(A) Negative [facility] UA reflex comment Reflex to microscopic UA will be performed. [facility] Urine 06/30/2025 4:12 PM CDT 06/30/2025 4:18 PM CDT us Lana Amor MD LAB MICROBIOLOGY - GENE RAL ORDERABLES Final Result Performing Organization Address City/[facility] Co de Phone Number [facility] [place] [address] * Urinalysis, microscopic only (06/30/2025 4:12 PM CDT) WBC, ur 0-5 0 - 5 /HPF RBC, ur 0-2 0 - 2 /HPF [facility] Epithelial cells, squamous, ur 1-5 0 - 5 /HPF [facility] Culture Reflex Comment Reflex conditions for urine culture (WBC >10) not met. [facility] Urine 06/30/2025 4:12 PM CDT 06/30/2025 4:18 PM CDT us Lana Amor MD LAB URINE ORDERABLES Fi nal Result Performing Organization Address City/[facility]/ZIP Co de Phone Number [facility] [place] [address] * XR Chest PA Lateral 2 Views (06/30/2025 3:10 PM CDT) Anatomical Region Laterality Modality Body, Chest N/A Computed Radiogr aphy 06/30/2025 3:19 PM CDT Impressions 06/30/2025 3:25 PM CDT Comparison is made to chest radiograph 05/06/2025. External wires overlie the chest. Trace bilateral pleural effusions. No pulmonary consolidation, pneumothorax, or pulmonary edema. Normal cardiomediastinal silhouette. Dictated by: Robert Bolton M.D. The radiology attending physician has personally reviewed this study, and had reviewed and/or edited this written report and agrees with it. Electronically signed by: Bairon Abdul M.D. Narrative 06/30/2025 3:25 PM CDT EXAMINATION: 2 view chest radiograph Procedure Note Bairon Abdul MD - 06/30/2025 EXAMINATION: 2 view chest radiograph IMPRESSION: Comparison is made to chest radiograph 05/06/2025. External wires overlie the chest. Trace bilateral pleural effusions. No pulmonary consolidation, pneumothorax, or pulmonary edema. Normal cardiomediastinal silhouette. Dictated by: Robert Bolton M.D. The radiology attending physician has personally reviewed this study, and had reviewed and/or edited this written report and agrees with it. Electronically signed by: Bairon Abdul M.D. Lana Amor MD IMG XR PROCEDURES Final Result * (ABNORMAL) Troponin I high-sensitivity (06/30/2025 2:51 PM CDT) Trop I hs 30(H) <=17 ng/L Comment: Interpretive Data For further hscTnI resources including the diagnostic algorithm and an aid in interpretation, copy and paste this link: https://bjhlab.testcatalog.org/show/hsTrop-1 Current Interpretive Data last revised 2020. Blood 06/30/2025 2:51 PM CDT 06/30/2025 3:08 PM CDT Lana Amor MD LAB BLOOD ORDERABLES Fi nal Result Performing Organization Address [facility] Co de Phone Number [facility] [place], [place] [id number] * Thyroid Function [place] (06/30/2025 2:51 PM CDT) Pathologist [facility] TSH 1.34 0.30 - 4.20 mcIUnit/mL Blood 06/30/2025 2:51 PM CDT 06/30/2025 3:08 PM CDT Lana Amor MD LAB BLOOD ORDERABLES Fi nal Result Performing Organization Address [facility] de Phone Number [facility] [place] [address] * Carbamazepine level, total (06/30/2025 2:51 PM CDT) [facility] Carbamazepine 5.2 4.0 - 12.0 mcg/mL Comment: Interpretive Data Therapeutic or Toxic effect of anticonvulsant drugs may occur at different concentrations in different patients and the correlation between dose and clinical effect must be evaluated individually. Current interpretive data was last revised on 14. Blood 06/30/2025 2:51 PM CDT 06/30/2025 3:08 PM CDT Lana Amor MD LAB BLOOD ORDERABLES Fi nal Result Performing Organization Address [facility] Co de Phone Number [facility] [place] [address] * POCT glucose (06/30/2025 2:17 PM CDT) Pathologist [facility] Glucose, POC 95 70 - 199 mg/dL Blood 06/30/2025 2:17 PM CDT 06/30/2025 2:17 PM CDT us Notinfile Unknown LAB POCT ORDERABLES - DEVICE F inal Result Performing Organization Address [facility] Co de Phone Number [facility] [place] [address] * eGFR (06/30/2025 2:15 PM CDT) eGFR 65 >=60 mL/min/1. 73 m2 Comment: Interpretive Data [...] interpretive data was last reviewed 2021. Blood 06/30/2025 2:15 PM CDT 06/30/2025 2:29 PM CDT us Artie Gates MD LAB BLOOD ORDERABLES Margaret l Result Performing Organization Address City/[facility]/ZIP Co de Phone Number [facility] [place] [address] * Differential, auto (06/30/2025 2:15 PM CDT) Neutrophil abs 6.23 1.50 - 6.50 K/cumm Imm gran abs 0.05 0.00 - 0.10 K/cumm [facility] Lymphocyte abs 1.39 0.80 - 3.30 K/cumm [facility] Monocyte abs 0.75 0.20 - 0.80 K/cumm [facility] Eosinophil abs 0.02 0.00 - 0.50 K/cumm [facility] Basophil abs 0.02 0.00 - 0.10 K/cumm [facility] Neutrophil pct 73.7 % [facility] Comment: Interpretive Data Percent cell count reference ranges are not reported, since discordance with absolute values may lead to misinterpretation of CBC data. Current Interpretive Data was last revised on 2018. Imm gran pct 0.6 % [facility] Comment: Interpretive Data Percent cell count reference ranges are not reported, since discordance with absolute values may lead to misinterpretation of CBC data. Current Interpretive Data was last revised on 2018. Lymphocyte pct 16.4 % [facility] Comment: Interpretive Data Percent cell count reference ranges are not reported, since discordance with absolute values may lead to misinterpretation of CBC data. Current Interpretive Data was last revised on 2018. Monocyte pct 8.9 % [facility] Comment: Interpretive Data Percent cell count reference ranges are not reported, since discordance with absolute values may lead to misinterpretation of CBC data. Current Interpretive Data was last revised on 2018. Eosinophil pct 0.2 % [facility] Comment: Interpretive Data Percent cell count reference ranges are not reported, since discordance with absolute values may lead to misinterpretation of CBC data. Current Interpretive Data was last revised on 2018. Basophil pct 0.2 % [facility] Comment: Interpretive Data Percent cell count reference ranges are not reported, since discordance with absolute values may lead to misinterpretation of CBC data. Current Interpretive Data was last revised on 2018. Blood 06/30/2025 2:15 PM CDT 06/30/2025 2:29 PM CDT us Artie Gates MD LAB BLOOD ORDERABLES Margaret neumann Result [facility] [place] [address] * (ABNORMAL) CBC with auto differential (06/30/2025 2:15 PM CDT) WBC 8.46 3.80 - 9.90 K/cumm Hgb 11.8(L) 11.9 - 15.5 g/dL [facility] Hct 37.0 35.6 - 45.5 % [facility] Plt 277 150 - 400 K/cumm [facility] MPV 10.5 9.1 - 12.3 fL [facility] RBC 4.23 3.90 - 5.20 M/cumm [facility] MCV 87.5 81.3 - 96.4 fL [facility] MCH 27.9 27.1 - 33.3 pg [facility] MCHC 31.9(L) 32.3 - 35.7 g/dL [facility] RDW CV 14.9 11.1 - 14.9 % [facility] RDW SD 47.6 35.7 - 48.1 fL [facility] NRBC abs 0.00 0.00 - 0.01 K/cumm [facility] Blood 06/30/2025 2:15 PM CDT 06/30/2025 2:29 PM CDT us Lana Amor MD LAB BLOOD ORDERABLES nal Result [facility] [place] [address] * (ABNORMAL) Comprehensive metabolic panel (06/30/2025 2:15 PM CDT) [facility] Sodium 141 135 - 145 mmol/L Potassium, pl 5.1(H) 3.3 - 4.9 mmol/L [facility] Comment:Hemolyzed; Potassium value may be falsely elevated by as much as 0.6-1.0 mmol/L. Suggest redraw and reanalysis. Chloride 105 97 - 110 mmol/L [facility] CO2 25 22 - 32 mmol/L [facility] Anion gap 11 2 - 15 mmol/L [facility] BUN 33(H) 6 - 25 mg/dL [facility] Creatinine 0.86 0.60 - 1.10 mg/dL [facility] Glucose 97 70 - 199 mg/dL [facility] Comment: Interpretive Data Fasting glucose >/= 126 [...] 2022. Calcium 9.3 8.5 - 10.3 mg/dL [facility] Bilirubin, total <0.2 0.1 - 1.2 mg/dL [facility] Protein, pl 7.0 6.5 - 8.5 g/dL [facility] Albumin 3.2(L) 3.5 - 5.0 g/dL [facility] Alk phos 97 40 - 130 Units/L [facility] ALT 16 7 - 45 Units/L [facility] AST 48(H) 10 - 45 Units/L [facility] Comment:Hemolyzed; result ma y be falsely elevated Blood 06/30/2025 2:15 PM CDT 06/30/2025 2:29 PM CDT us Lana Amor MD LAB BLOOD ORDERABLES Fi nal Result [facility] [place] [address] * ECG 12-LEAD (06/30/2025 1:30 PM CDT) Narrative [facility] - 06/30/2025 1:30 PM CDT Linden Spencer MD 06/30/2025 1:30 PM ECG 12 lead Date/Time: 06/30/2025 1:30 PM Performed by: Linden Spencer MD Authorized by: Artie Gates MD Rate: ECG rate: 57 ECG rate assessment: normal Rhythm: Rhythm: sinus bradycardia Ectopy: Ectopy: none QRS: QRS axis: Left QRS intervals: Normal Conduction: Conduction: normal ST segments: ST segments: Normal T waves: T waves: normal Previous ECG: Previous ECG: Unavailable Interpretation: Interpretation: normal Recommended Follow-up: Recommended follow up: further workup in the ED us Lana Amor MD ECG ORDERABLES Final R esult Performing Organization Address City/[facility]/ZIP Co de Phone Number [facility] * Potassium (05/09/2025 11:41 AM CDT) Potassium, pl 4.7 3.3 - 4.9 mmol/L Blood 05/09/2025 11:4 1 AM CDT 05/09/2025 11:59 AM CDT us Harmony Wynne MD LAB BLOOD ORDERABLES Margaret l Result Performing Organization Address [facility] Co de Phone Number RASHMI [place] ([place]) [address] [facility] Department [place] [address] * (ABNORMAL) Troponin T high-sensitivity 6-hour (05/09/2025 3:53 AM CDT) Trop T hs 42(H) <=14 ng/L Comment: Interpretive Data For further hscTnT resources including the diagnostic algorithm and an aid in interpretation, copy and paste this link: https://nrl.testcatalog.org/show/hsTrop Current Interpretive Data last revised 2020. Trop T hs delta See Comment ng/L CE STEVEN FOX ([place]) Comment:Inappropriate collec tion time to report a delta. Trop T hs pct delta See Comment % RASHMI [place] ([place]) Comment:Inappropriate collec tion time to report a delta. Trop T hs interp See Comment C ELA FOX ([place]) Comment:Inappropriate collec tion time to report a delta. Blood 05/09/2025 3:53 AM CDT 05/09/2025 4:34 AM CDT us Antwan Kan MD LAB BLOOD ORDERABLES Final Resu lt RASHMI FOX ([place]) 1 [facility] Department [place] [address] * (ABNORMAL) Troponin T high-sensitivity 4-hour (05/09/2025 3:53 AM CDT) Trop T hs 41(H) <=14 ng/L Comment: Interpretive Data For further hscTnT resources including the diagnostic algorithm and an aid in interpretation, copy and paste this link: https://nrl.testcatalog.org/show/hsTrop Current Interpretive Data last revised 2020. Trop T hs delta See Comment ng/L CE RNTORSTEN FOX ([place]) Comment:Inappropriate collec tion time to report a delta. Trop T hs pct delta See Comment % RASHMI [place] ([place]) Comment:Inappropriate collec tion time to report a delta. Trop T hs interp See Comment C ELA [facility] ([place]) Comment:Inappropriate collec tion time to report a delta. Blood 05/09/2025 3:53 AM CDT 05/09/2025 4:34 AM CDT us Antwan Kan MD LAB BLOOD ORDERABLES Final Resu lt R[facility]MI [place] ([place]) 1 [facility] Department [place] [address] * (ABNORMAL) eGFR (05/09/2025 3:53 AM CDT) [...] BLOOD ORDERABLES Final Resu lt [facility] ([place]) [address] [facility] Department [place] [address] * Differential, auto (05/09/2025 3:53 AM CDT) [...] Final Resu lt [facility] ([place]) [facility] [place] [address] * (ABNORMAL) CBC with auto differential (05/09/2025 [...] MD LAB BLOOD ORDERABLES Final [facility] ([place] [place] [address] * (ABNORMAL) Comprehensive metabolic panel (05/09/2025 3:53 [...] ORDERABLES Final Resu lt Performing Organization Address [facility] Co de Phone Number RASHMI FOX ([place]) 1 [facility] [place] [address] * (ABNORMAL) Troponin T high-sensitivity 2-hour (05/08/2025 [...] de Phone Number RASHMI FOX ([place]) [address] [facility] [place] [address] * ECG 12 lead (05/08/2025 8:57 PM CDT) 05/08/2025 8:57 PM CDT Narrative [facility] - 05/09/2025 8:14 PM CDT Vent Rate: 57 bpm RR Interval: 1036 msec UT Interval: 149 msec QRS Duration: 69 msec QT Interval: 372 msec QTC Interval: 367 msec P-R-T Avinger: 40 - 8 - 59 degrees IMPRESSION: SINUS BRADYCARDIA BORDERLINE ECG NO CHANGE FROM PREVIOUS TRACING NOTED Electronically Signed By: Jesus Vasquez MD Antwan Kan MD ECG ORDERABLES Final Result Performing Organization Address [facility] Co de Phone Number [facility] * (ABNORMAL) Troponin T high-sensitivity series (baseline, [...] City/[facility] Co de Phone Number RASHMI FOX ([place]) [address] [facility] Department [place] [address] * (ABNORMAL) eGFR (05/08/2025 6:17 AM CDT) [...] BLOOD ORDERABLES Final Resu lt RASHMI [place] ([place]) 1 [facility] [place] [address] * Differential, auto (05/08/2025 6:17 AM CDT) [...] BLOOD ORDERABLES Final Resu lt [facility] ([place]) [address] [facility] Department [place] [address] * (ABNORMAL) CBC with auto differential (05/08/2025 [...] [facility] ([place]) Blood 05/08/2025 6:17 AM CDT 05/08/2025 6:26 AM CDT us Antwan Kan MD LAB BLOOD ORDERABLES Final Resu lt [facility] ([place]) [facility] Department [place] [address] * (ABNORMAL) Comprehensive metabolic panel (05/08/2025 6:17 AM CDT) Sodium 137 135 - 145 mmol/L Potassium, pl 4.7 3.3 - 4.9 mmol/L [facility] ([place]) Chloride 102 97 - 110 mmol/L [facility] ([place]) CO2 25 22 - 32 mmol/L [facility] ([place]) Anion gap 10 2 - 15 mmol/L [facility] ([place]) BUN 31(H) 6 - 25 mg/dL [facility] ([place]) Creatinine 0.99 0.60 - 1.10 mg/dL [facility] ([place]) Glucose 92 70 - 199 mg/dL [facility] ([place]) Comment: Interpretive [...] BLOOD ORDERABLES Final Resu lt [facility] ([place]) [facility] Department [place] [address] * (ABNORMAL) Urinalysis reflex to microscopic (05/07/2025 [...] tendency for uric acid stone formation. Source: [facility] [place] Current Interpretive Data was last revised on 2017 Protein, ur ql 1+(A) Negative [facility] ([place]) Glucose, ur ql Negative Negative [facility] ([place]) Ketones, ur Trace Negative [facility] ([place]) Bilirubin, ur Negative Negative [facility] ([place]) Blood, ur Negative Negative [facility] ([place]) Urobilinogen, ur 2.0(A) <2.0 mg/dL [facility] ([place]) Nitrite, ur Negative Negative [facility] ([place]) Leukocyte esterase, ur 1+(A) Negative [facility] ([place]) UA reflex comment Reflex to microscopic UA will be performed. [facility] ([place]) Urine 05/07/2025 6:04 PM CDT 05/07/2025 6:09 PM CDT Antwan Kan MD LAB URINE ORDERABLES Final Resu lt Performing Organization Address [facility] Co de Phone Number RASHMI [facility] ([place]) 1 [facility] [place] [address] * (ABNORMAL) Urinalysis, microscopic only (05/07/2025 6:04 PM CDT) WBC, ur 6-10(A) 0 - 5 /HPF RBC, ur 0-2 0 - 2 /HPF [facility] ([place]) Epithelial cells, squamous, ur 11-20(A) 0 - 5 /HPF [facility] ([place]) Bacteria, ur 1+(A) [facility] ([place]) Mucous, ur Present(A) [facility] ([place]) Urine 05/07/2025 6:04 PM CDT 05/07/2025 6:09 PM CDT us Antwan aKn MD LAB URINE ORDERABLES Final Resu lt Performing Organization Address [facility] Co de Phone Number RASHMI FOX ([place]) [address] [facility] [place] [address] * MRI Lumbar Spine WO Contrast (05/07/2025 [...] dated 05/06/2025 and 11/04/2021. FINDINGS: SEGMENTATION: 5 yrn-nmt-asvfalh lumbar type vertebral bodies. ALIGNMENT: Mild anterolisthesis [...] facet arthropathy with mild neural foraminal narrowing, efag-elajjtc-dwrq-right. L2-L3: No significant disc bulge or spinal canal stenosis. Thickened ligamentum flavum and facet arthropathy with gkgh-lu-xkuakmle left and mild right neural foraminal narrowing. [...] and series 11, image 15). IMPRESSION: 1. Mpcu-pf-vfdwlvbr lumbar disc degeneration with thickened ligamentum flavum [...] Jonas Han D.O. AP: AP Report ID: [id number] Reading Location: [place] [address] Procedure Note Jonas Han, DO - 05/07/2025 [...] dated 05/06/2025 and 11/04/2021. FINDINGS: SEGMENTATION: 5 xlg-gsp-ysiqorb lumbar type vertebral bodies. ALIGNMENT: Mild anterolisthesis [...] and facet arthropathy with mild neural foraminalnarrowing, edhv-uqcutwa-eleb-right. L2-L3: No significant disc bulge or spinal canal stenosis. Thickened ligamentum flavum and facet arthropathy with qcxy-fy-zxpmqeyi left andmild right neural foraminal narrowing. L3-L4: [...] and series 11, image 15). IMPRESSION: 1. Clct-bm-wvelayqo lumbar disc degeneration with thickened ligamentum flavum [...] Han D.O. AP: JOSE ENRIQUE Report ID: [id number] Reading Location: [place] [address] us Cameron Marie FRANCHISE DEVELOPMENT MANAGER IMG MRI PROCEDURES Final Re sult * [...] BLOOD ORDERABLES Final Resu lt [facility] [place]) [facility] [place] [address] * Differential, auto (05/07/2025 3:00 AM CDT) Neutrophil abs 3.05 1.50 - 6.50 K/cumm Imm gran abs 0.05 0.00 - 0.10 K/cumm [facility] ([place]) Lymphocyte abs 1.69 0.80 - 3.30 K/cumm [facility] ([place]) Monocyte abs 0.52 0.20 - 0.80 K/cumm [facility] ([place]) Eosinophil abs 0.04 0.00 - 0.50 K/cumm [facility] ([place]) Basophil abs 0.02 0.00 - 0.10 K/cumm [facility] ([place]) Neutrophil pct 56.8 % [facility] ([place]) Comment: Interpretive Data Percent cell count reference ranges are not reported, since discordance with absolute values may lead to misinterpretation of CBC data. Current Interpretive Data was last revised on 2018. Imm gran pct 0.9 % [facility] ([place]) Comment: Interpretive Data Percent cell count reference ranges are not reported, since discordance with absolute values may lead to misinterpretation of CBC data. Current Interpretive Data was last revised on 2018. Lymphocyte pct 31.5 % [facility] ([place]) Comment: Interpretive Data Percent cell count reference ranges are not reported, since discordance with absolute values may lead to misinterpretation of CBC data. Current Interpretive Data was last revised on 2018. Monocyte pct 9.7 % [facility] ([place]) Comment: Interpretive Data Percent cell count reference ranges are not reported, since discordance with absolute values may lead to misinterpretation of CBC data. Current Interpretive Data was last revised on 2018. Eosinophil pct 0.7 % [facility] ([place]) Comment: Interpretive Data Percent cell count reference ranges are not reported, since discordance with absolute values may lead to misinterpretation of CBC data. Current Interpretive Data was last revised on 2018. Basophil pct 0.4 % [facility] ([place]) Comment: Interpretive Data Percent cell count reference ranges are not reported, since discordance with absolute values may lead to misinterpretation of CBC data. Current Interpretive Data was last revised on 2018. Blood 05/07/2025 3:00 AM CDT 05/07/2025 3:37 AM CDT Antwan Kan MD LAB BLOOD ORDERABLES Final Resu lt [facility] ([place]) [facility] [place] [address] * (ABNORMAL) CBC with auto differential (05/07/2025 [...] Final Resu lt [facility] ([place]) [address] [facility] [place] [address] * TSH (05/07/2025 3:00 AM CDT) Thyroid Stimulating Hormone 3.06 0.30 - 4.20 mcIUnit/mL Blood 05/07/2025 3:00 AM CDT 05/07/2025 3:39 AM CDT us Antwan Kan MD LAB BLOOD ORDERABLES Final Resu lt [facility] ([place]) 1 [facility] [place] [address] * (ABNORMAL) Comprehensive metabolic panel (05/07/2025 3:00 [...] BLOOD ORDERABLES Final Resu lt RASHMI FOX ([place]) [address] [facility] [place] [address] * POCT glucose (05/06/2025 5:10 PM CDT) [facility] Signature Glucose, POC 89 70 - 199 mg/dL Blood 05/06/2025 5:10 PM CDT 05/06/2025 5:10 PM CDT us Angelica Eagle MD LAB POCT ORDERABLES - DEV ICE Final Result Performing Organization Address City/[facility]/ZIP Co de Phone Number RASHMI FOX ([place]) 1 [facility] [place] [address] * XR Spine Lumbar 4 or More [...] states that is normal. Pt has equal trapeze performer strength. TECHNIQUE: 6 radiographic view(s) of the [...] by Cameron Lyons M.D. JR: Report ID: [id number] Reading Location: [id number] Procedure Note Cameron Lyons MD - 05/06/2025 [...] states that is normal. Pt has equal trapeze performer strength. TECHNIQUE: 6 radiographic view(s) of the [...] by Cameron Lyons M.D., JR: Report ID: [id number] Reading Location: [id number] Joie HU IMG XR PROCEDURES Final Result [...] states that is normal. Pt has equal trapeze performer strength. TECHNIQUE: AP pelvis, 2 views of [...] by Cameron Lyons M.D., JR: Report ID: [id number] Reading Location: [id number] Procedure Note Cameron Lyons MD - 05/06/2025 [...] states that is normal. Pt has equal trapeze performer strength. TECHNIQUE: AP pelvis, 2 views of [...] by Cameron Lyons M.D. JR: Report ID: [id number] Reading Location: [place] [address] Angelica Eagle MD IMG XR PROCEDURES Final [...] states that is normal. Pt has equal trapeze performer strength. TECHNIQUE: 2 radiographic view(s) of the [...] 05/06/2025 2:10 PM - Electronically signed by Camerno Lyons M.D. JR: JR Report ID: [id number] Reading Location: [id number] Procedure Note Cameron Lyons MD - 05/06/2025 [...] states that is normal. Pt has equal trapeze performer strength. TECHNIQUE: 2 radiographic view(s) of the [...] by Cameron Lyons M.D. JR: Report ID: [id number] Reading Location: [place] [address] Angelica Eagle MD IMG XR PROCEDURES Final [...] tendency for uric acid stone formation. Source: [facility] Current Interpretive Data was last revised [...] will be performed. [facility] ([place]) Urine 05/06/2025 1:42 PM CDT 05/06/2025 1:53 PM CDT Angelica Eagle MD LAB MICROBIOLOGY - GENERA L ORDERABLES Final Result [facility] ([place]) 1 [facility] Department [place] [address] * (ABNORMAL) Urinalysis, microscopic only (05/06/2025 1:42 PM CDT) WBC, ur 0-5 0 - 5 /HPF RBC, ur 0-2 0 - 2 /HPF [facility] ([place]) Epithelial cells, squamous, ur 6-10(A) 0 - 5 /HPF [facility] ([place]) Bacteria, ur Trace(A) [facility] ([place]) Mucous, ur Present(A) [facility] ([place]AME) Culture Reflex Comment Reflex conditions for urine culture (WBC >10) not met. [facility] ([place]) Urine 05/06/2025 1:42 PM CDT 05/06/2025 1:53 PM CDT Angelica Eagle MD LAB URINE ORDERABLES Margaret l Result [facility] [place]) 1 [facility] Department [place] [address] * XR Chest 1 Vw Portable (05/06/2025 [...] states that is normal. Pt has equal trapeze performer strength. TECHNIQUE: Single radiographic view(s) of the chest. COMPARISON: Chest radiograph 04/10/2025 FINDINGS: The heart appears normal in size. There is blunting of the left costophrenic angle which could reflect trace pleural effusion. IMPRESSION: Trace left pleural effusion. THIS IS AN ELECTRONICALLY VERIFIED FINAL REPORT 05/06/2025 12:55 PM - Electronically signed by Cameron Lyons M.D. JR: Report ID: [id number] Reading Location: [id number] Procedure Note Cameron Lyons MD - 05/06/2025 [...] and sees a neurologist. Pt took tylenol [id number]. Speech slightly slurred, but states that is [...] by Cameron Lyons M.D. JR: Report ID: [id number] Reading Location: [id number] Joie HU IMG XR PROCEDURES Final Result * ECG 12 lead (05/06/2025 12:04 PM CDT) 05/06/2025 12:0 4 PM CDT Narrative [facility] - 05/06/2025 1:14 PM CDT Vent Rate: 59 bpm RR Interval: 1011 msec UT Interval: 134 msec QRS Duration: 82 msec QT Interval: 360 msec QTC Interval: 359 msec P-R-T Avinger: 40 - 6 - 53 degrees IMPRESSION: SINUS BRADYCARDIA WITH SINUS ARRHYTHMIA BORDERLINE ECG NO CHANGE FROM PREVIOUS TRACING NOTED Electronically Signed By: Jesus Vasquez MD Angelica Eagle MD ECG ORDERABLES Final Res ult [facility] * (ABNORMAL) eGFR (05/06/2025 12:04 PM CDT) [...] BLOOD ORDERABLES Margaret neumann Result [facility] [place] ([place]) 1 [facility] Department [place] [address] * Differential, auto (05/06/2025 12:04 PM CDT) [...] Margaret neumann Result [facility] ([place]) 1 [facility] Department [place] [address] * (ABNORMAL) CBC with auto differential (05/06/2025 [...] NRBC abs 0.00 0.00 - 0.01 K/cumm [facility] ([place]) Blood 05/06/2025 12:0 4 PM CDT 05/06/2025 12:07 PM CDT us Angelica Eagle MD LAB BLOOD ORDERABLES Margaret neumann Result [facility] ([place]) 1 [facility] Department [place] [address] * (ABNORMAL) Comprehensive metabolic panel (05/06/2025 12:04 PM CDT) Sodium 139 135 - 145 mmol/L Potassium, pl 4.8 3.3 - 4.9 mmol/L [facility] ([place] Chloride 101 97 - 110 mmol/L [facility] ([place]) CO2 24 22 - 32 mmol/L [facility] ([place]) Anion gap 15 2 - 15 mmol/L [facility] ([place]) BUN 33(H) 6 - 25 mg/dL [facility] ([place]) Creatinine 1.00 0.60 - 1.10 mg/dL [facility] ([place]) Glucose 174 70 - 199 mg/dL [facility] ([place]) Comment: Interpretive [...] ORDERABLES Margaret neumann Result Performing Organization Address [facility]/ZIP Co de Phone Number [facility] ([place]) 1 [facility] [place] [address] * (ABNORMAL) Hemoglobin A1c (01/21/2025 3:11 PM CDT) Hgb A1C 6.2(H) 4.0 - 5.6 % Estimated Average Glucose 131 mg/dL [facility] ([place]) Comment: The ADA recommends reporting an estimated Average Glucose (eAG) with all Hemoglobin A1c results using the equation derived from a study of 507 normal and diabetic adults. Minority populations were underrepresented and children were not included. (Diabetes Care 31:2864-4254, 2008). The eAG is not equivalent to a fasting glucose. Blood 01/21/2025 3:11 PM CDT 01/21/2025 3:15 PM CDT Narrative [facility] ([place]) - 01/21/2025 4:11 PM CDT FASTING 1-2 WEEKS BEFORE JANUARY 2025 APPT us Fede HU LAB BLOOD ORDERABLES Fi nal Result Performing Organization Address City/[facility]/ZIP Co de Phone Number [facility] ([place]AME) 1 [facility] [place] [address] * Lipid panel (01/21/2025 3:11 PM CDT) [...] Fi nal Result [facility] [place] ([place]) 1 [facility] Department [place] [address] * (ABNORMAL) Albumin Creatinine Ratio, Urine (06/11/2024 3:25 PM CDT) Pathologist [facility] Albumin Ur 577.8 mg/L Comment: Interpretive Data No reference range established. Current interpretive data was last revised 2019. Testing performed by: [facility], [address] [place] [address]., [address] Creatinine Ur 117.5 mg/dL [facility] ([place]) Comment: Interpretive Data No reference range established. Current interpretive data was last revised 2019. Testing performed by: [address] [address] Albumin Creatinine Ratio, Ur 492(H) 1 - 29 mg/g [facility] ([place]) Comment:Testing performed by : [facility], [address] [place] [address]., [address] Urine 06/11/2024 3:25 PM CDT 06/12/2024 9:00 AM CDT us Fede HU LAB URINE ORDERABLES Fi nal Result SEJALBRITTANY FOX ([place]) 1 [facility] Department [place] [address] * Diabetic Eye Exam (06/25/2023) us Generic External Data Provider HEALTH MAINTENANC E Final Result * FIT occult blood, fecal (09/02/2020 9:16 AM CDT) Pathologist [facility] FIT occult blood, fecal Negative Negative [facility] ([place]) Comment: Negative result. This test will not detect upper gastrointestinal bleeding; the HemoQuant test (9220)should be ordered if clinically indicated. Test Performed by: [place] [address] Facilities Manager: Jake Mcgarry M.D. Ph.D.; CLIA# [id number] Stool 09/02/2020 9:16 AM CDT 09/02/2020 1:30 PM CDT George Young MD LAB BODY FLUIDS AND STOOLS ORDERABLES Final Result [facility] ([place]) 1 [facility] Department [place] [address] * Screening Mammogram Bilateral W Mane (07/27/2020 [...] Abnormal Comment:Diverticulosis and h emorrhoidal disease Result [facility] Historical Provider HEALTH MAINTENANCE Final Result * DEXA SCAN (03/09/2005) DEXA Scan Normal Historical Provider HEALTH MAINTENANCE Final Result from Last 3 Months or Most Recently Relevant to Health Maintenance Insurance MEDICARE [employer]to [facility] MEDICARE [facility] Advance Directives For more information, please contact: [phone] * Full Code (Latest Code Status on File) Date Activated Date Inactivated Comments 07/01/2025 4:37 PM 07/08/2025 7:20 PM * Full Code Date Activated Date Inactivated Comments 05/06/2025 11:11 [...] treatment unless specifically selected below: No intubation Care Teams Monotype Operator Relationship Specialty Start Date End Date Fede Mills PA [address] [facility] [address] [place] [address] PCP - General Internal Medicine 07/04/22 Lynda Silvestre MD [address] [place] [address] Referring Physician Ophthalmology 11/13/22 Victor Manuel Real MD [address] [facility] [address] [place] [address] Consulting Physician Neurology 01/18/24 Nazario Osman DPM [address] [place] [address] Consulting Physician Orthotics 01/18/24 Concha Prakash, RN [address] [place] [address] [address] [place] [address] Scrap Sorter 05/06/25
--- OUTSIDE RECORDS SUMMARY | 2025-07-28 16:22 | XMS_ITS | Encounter Summary ---
Author Organization [facility] Healthcare Address [address] [place] [address] Care Team Providers Care Hearing Aid Assembly Supervisor Name Role Phone Fede Mills Primary Care Provider Lynda Silvestre MD Unavailable [phone] Victor Manuel Real MD Unavailable [phone] Nazario Osman DPM Unavailable [phone] Concha Prakash RN Unavailable [phone] Reason for Visit * Reason Onset Date Comments Additional Services Or Orders 06/26/2025 Encounter Details Date Type Department Care Team (Late st Contact Info) Description 06/26/2025 Telephone [facility] Medical Group Primary Care at [address] [place] [address] Fede Mills PA [address] [place] [address] [address] [place] [address] Additional Services Or Orders Social History Tobacco [...] often do you attend chur ch or baptism services? Never 05/07/2025 Do you belong to any clubs o r organizations such as zoroastrian groups, unions, fraternal or athletic groups, or [...] any time in the past 12 m [facility], were you homeless or living in a senior living (including now)? No 05/07/2025 Social Connection and Isolation Panel Answer Date Recorded In a typical week, how many times do you talk on the phone with family, friends, or neighbors? More than three times a week 07/03/2025 How often do you get togethe r with friends or relatives? More than three times a week 07/03/2025 How often do you attend chur ch or baptism services? Never 07/03/2025 Do you belong to any clubs o r organizations such as zoroastrian groups, unions, fraternal or athletic groups, or [...] in a senior living (including now)? 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 The daughter did not have any information regarding where to send orders and such. She is going to call back when she gets the information. Does message need to be routed? No documented in this encounter Plan of Treatment Not on file documented as of this encounter Visit Diagnoses Not on filedocumented in this encounter Additional Health Concerns Infection Onset Date Last Indicated Resolved Time LTAC Screening Comment:Patient came from [facility]. This LTAC is not part of our screening at this time. 07/02/2025 07/02/2025 07/02/2025 8:36 AM C DT documented as of this encounter Care Teams Hearing Aid Assembly Supervisor Relationship Specialty Start Date End Date Fede Mills PA [address] [place] [address] [place] [address] PCP - General Internal Medicine 07/04/22 Lynda Silvestre MD [address] [place] [address] Referring Physician Ophthalmology 11/13/22 Victor Manuel Real MD [address] [place] [address] [address] [place] [address] Consulting Physician Neurology 01/18/24 Nazario Osman DPM [address] [place] [address] Consulting Physician Orthotics 01/18/24 Concha Prakash, RN [address] [place] [address] [address] [place] [address] Location Analyst 05/06/25 documented as of this encounter
[2025-07-28 16:49] LABS: Alanine Aminotransferase 10 U/L (6-35); Albumin Level 3.6 g/dL (3.5-5.1); Alkaline Phosphatase 114 U/L (38-126); Anion Gap 4 mmol/L (4-12); Aspartate Amino Transferase 35 U/L (14-36); Bilirubin,Total 0.2 mg/dL (0.2-1.3); Blood Urea Nitrogen 21 mg/dL (7-17); Calcium 9.6 mg/dL (8.4-10.2); Carbon Dioxide 30 mmol/L (22-30); Chloride 104 mmol/L (98-107); Estimated CRCL calculation 35 ml/min; Estimated Glomerular Filt Rate 60; Glucose 100 mg/dL (65-110); Potassium 4.6 mmol/L (3.4-5.0); Sodium 138 mmol/L (137-145); Total Protein 7.2 g/dL (6.3-8.2)
[2025-07-28 16:51] LABS: Hematocrit 39.7 % (37.0-47.0); Hemoglobin 12.3 g/dL (12.0-15.0); Immature Granulocyte Percent A 0.6 % (0-0.5); Lymphocytes Absolute Auto 1.59 K/mm3 (0.9-3.2); Mean Corpuscular HGB Conc 31.0 g/dl (32-36); Mean Corpuscular Hemoglobin 27.6 pg (26-34); Mean Corpuscular Volume 89.2 fl (80-100); Nucleated Red Blood Cells Absolute Auto 0.000 K/mm3 (0.0-0.012); Nucleated Red Blood Cells Perc 0.0 % (0.0-0.2); Platelet Count Result 282 k/mm3 (150-375); Red Blood Count 4.45 M/mm3 (4.2-5.4); White Blood Count 6.5 K/mm3 (4.5-10.0)
--- NOTE | 2025-07-28 18:11 | ED.GENADULT ---
HPI - General Adult General Chief complaint: Recheck/Abnormal Lab/Rx Stated complaint: HTN Time Seen by Provider: 07/28/25 15:58 History of Present Illness HPI narrative: This is an 89-year-old female with Parkinson's, hypertension and chronic headaches presenting for elevated blood pressure and headache. Patient developed her typical right-sided pounding headache. She has had these for many many years. They were concerned at the [place] [facility] because her blood pressures were elevated as high as 250 over 180. Patient is says that she has received all of her medications as scheduled from the [place] [facility]. Patient does not have any confusion. No visual changes. She can still move for 4 extremities although she is severely limited due to severe Parkinson's. Related Data Allergies Allergy/AdvReac Type Severity Reaction Status Date / Time codeine Allergy Unknown Unknown Verified 07/28/25 15:58 Penicillins Allergy Unknown Unknown Verified 07/28/25 15:58 Sulfa (Sulfonamide Allergy Unknown Unknown Verified 07/28/25 15:58 Antibiotics) Exam Narrative: APPEARANCE: No apparent distress. Head: atraumatic. EYES: EOMI, NOSE: Atraumatic NECK: Trachea midline RESPIRATORY: No increased rate of breathing CTAB CARDIOVASCULAR: RRR, no peripheral edema ABDOMINAL: Non-distended soft nontender MUSCULOSKELETAl: No obvious deformities NEURO: Alert. Cranial nerves intact. Moving for 4 extremities to command SKIN:: Warm, dry. Normal color PSYCHIATRIC: Normal affect Course Vital Signs Vital signs: Vital Signs Temperature 98.1 F 07/28/25 15:50 Pulse Rate 60 07/28/25 15:50 Respiratory Rate 15 07/28/25 15:50 Blood Pressure 154/92 H 07/28/25 15:50 Pulse Oximetry 99 07/28/25 15:50 Oxygen Delivery Room Air 07/28/25 15:50 Temperature 98.1 F 07/28/25 15:50 Pulse Rate 57 L 07/28/25 18:14 Respiratory Rate 17 07/28/25 18:14 Blood Pressure 156/62 H 07/28/25 18:14 Pulse Oximetry 100 07/28/25 18:14 Oxygen Delivery Room Air 07/28/25 15:50 Medical Decision Making [facility] Narrative Medical decision making narrative: -Course: 89-year-old female presenting elevated blood pressures and her typical headache. CT brain negative for bleed. Screening lab work was normal. Unable to give the patient a migraine cocktail as Compazine could worsen her parkinsononian syndrome. Patient given Tylenol and Toradol. I sat with the family and discussed how closely they want to monitor her blood pressure and given her advanced age, poor functional status, and autonomic dysregulation from her Parkinson's I do not recommend tight control of her blood pressure. They voiced their understanding. She will be discharged back to [facility]. -DDX includes but is not limited to: Migraine, intracranial hemorrhage, uncontrolled hypertension, pain reaction -Co-morbidities complicating care: Hypertension, Parkinson's, chronic headaches Vital Signs Vital Signs: Vital Signs Temperature 98.1 F 07/28/25 15:50 Pulse Rate 60 07/28/25 15:50 Respiratory Rate 15 07/28/25 15:50 Blood Pressure 154/92 H 07/28/25 15:50 Pulse Oximetry 99 07/28/25 15:50 Oxygen Delivery Room Air 07/28/25 15:50 Temperature 98.1 F 07/28/25 15:50 Pulse Rate 57 L 07/28/25 18:14 Respiratory Rate 17 07/28/25 18:14 Blood Pressure 156/62 H 07/28/25 18:14 Pulse Oximetry 100 07/28/25 18:14 Oxygen Delivery Room Air 07/28/25 15:50 Lab Data 07/28/25 16:33 07/28/25 16:33 Labs: Lab Results 07/28/25 Range/Units 16:33 WBC 6.5 (4.5-10.0) K/mm3 RBC 4.45 (4.2-5.4) M/mm3 Hgb 12.3 (12.0-15.0) g/dL Hct 39.7 (37.0-47.0) % MCV 89.2 (80-100) fl MCH 27.6 (26-34) pg MCHC 31.0 L (32-36) g/dl RDW 14.1 (11.5-14.5) % Plt Count 282 (150-375) k/mm3 MPV 9.9 (7.4-10.4) fl Immature Gran % (Auto) 0.6 H (0-0.5) % Neut % (Auto) 62.9 (45.5-73.1) % Lymph % (Auto) 24.6 (18.3-44.2) % Motley % (Auto) 10.7 H (2.6-8.5) % Eos % (Auto) 0.9 (0-4.4) % Baso % (Auto) 0.3 (0.2-1.2) % Lymph # (Auto) 1.59 (0.9-3.2) K/mm3 Motley # (Auto) 0.7 H (0.1-0.6) K/mm3 Eos # (Auto) 0.1 (0-0.3) K/mm3 Baso # (Auto) 0.0 (0.0-0.1) K/mm3 Abs Immat Gran (auto) 0.04 H (0.00-0.031) K/mm3 Absolute Neuts (auto) 4.1 (1.3-6.7) K/mm3 Absolute Nucleated RBC 0.000 (0.0-0.012) K/mm3 Nucleated RBC % 0.0 (0.0-0.2) % Sodium 138 (137-145) mmol/L Potassium 4.6 (3.4-5.0) mmol/L Chloride 104 (98-107) mmol/L Carbon Dioxide 30 (22-30) mmol/L Anion Gap 4 (4-12) mmol/L BUN 21 H (7-17) mg/dL Creatinine 0.89 (0.7-1.0) mg/dL Estim Creat Clear Calc 35 ml/min Estimated GFR 60 (59 - ) Glucose 100 (65-110) mg/dL Calcium 9.6 (8.4-10.2) mg/dL Total Bilirubin 0.2 (0.2-1.3) mg/dL AST 35 (14-36) U/L ALT 10 (6-35) U/L Alkaline Phosphatase 114 (38-126) U/L Total Protein 7.2 (6.3-8.2) g/dL Albumin 3.6 (3.5-5.1) g/dL Discharge Plan Discharge Clinical Impression: HTN (hypertension), Headache Patient Disposition: Home Condition: Stable Instructions: Antibiotic Form, Acute Headache (DC) Additional Instructions: Nicolle was seen in the emergency department for a headache and hypertension. Her laboratory studies and CT of the brain or within normal limits. Her blood pressure improved on its own. Nicolle's blood pressure will fluctuate when she is in pain (like when she has a headache,)and due to her autonomic dysfunction from Parkinson's. Headaches are rarely caused by high blood pressure. Given her poor functional status I would focus on making her comfortable and not attempt to keep tight control of her blood pressure has that may do more harm than good. If she develops any new symptoms she can return to the ED as needed. Please follow-up with primary care physician. Patient Language: [place] Islander Prescriptions: No Action cephalexin 500 mg capsule 500 mg PO Q12H Qty: 10 0RF Follow-up/Referrals: PHYSICIAN NOT ON STAFF,NONSTAFF [Primary Care Provider]
[2025-07-28] MEDS: ACETAMINOPHEN 500 MG TABLET 1000 MG PO (18:26)
[2025-07-28] MEDS: KETOROLAC 15 MG/ML VIAL (*BKC) IV PUSH (18:31)
== END 2025-07-28 19:32 ==
PROVIDERS: Emergency Provider Emergency Medicine
DX: R51.9 Headache, unspecified (principal); I10 Essential (primary) hypertension; G20.A1 Parkinson's disease without dyskinesia, without mention of fluctuations
CPT/HCPCS: 36415; 70450; 80053; 85025; 96374; 99284; A9270; J1885